=== PATIENT | female | born 1995 | race Caucasian/White ===

== ENCOUNTER 2022-10-17 12:48 | Outpatient (CLI) | payer BC, SELFPAY | END 2022-10-17 12:49 | disposition home or self-care (01) | LOC: LKVREF 10-22 09:10 | PROVIDERS: PCP Physician Assistant Medical; Visit Provider Family Medicine | DX: N39.0 Urinary tract infection, site not specified (principal) | CPT/HCPCS: 87086 ==

== ENCOUNTER 2022-12-29 16:02 | Outpatient (CLI) | payer BC, SELFPAY ==
--- OUTSIDE RECORDS SUMMARY | 2022-12-29 16:06 | XMS_ITS | Continuity of Care Document ---
:1995 Author Organization [facility] Address [address] [place] [address] Phone Care Team Providers Name Role Phone Will Julio VICKERS Unavailable Unavailable Allergies, Adverse Reactions, Alerts Substance Reaction Status Criticality No Known Allergies Active No Informatio n Medications Medication Instructions Dosage Effective Dates Status Comment s (start - stop) rizatriptan [address] 1 TABLET ON TOP - Activ e disintegrating tablet OF TONGUE, ALLOW TO DISSOLVE THEN SWALLOW ONCE, MAY REPEAT EVERY 2 HOURS. MAX 30MG/24 HOURS FOR HEADACHE. CYCLOBENZAPRINE 10MG TAKE 1 TABLET BY - Active TABLETS MOUTH EVERY 8 HOURS NEEDED FOR HEADACHES Zanaflex 2 mg capsule take 1-2 capsule by - Ac tive oral route every 6 - 8 hours as needed not to exceed 3 doses in 24 hours for Headache gabapentin 300 mg take 2 capsule by 600 MG - Active capsule oral route 3 times every day for Headache Effexor XR 150 mg take 2 capsule by 300 MG - Active capsule,extended release oral route every day gabapentin 100 mg take 2 capsule by 200 MG - Active capsule oral route every day atomoxetine 60 mg take 1 capsule by 60 MG - Active capsule oral route every day in the morning propranolol 20 mg tablet take 1 tablet by oral 20 MG - Active route 3 times every day Procedures Procedure Date Ketorolac tromethamine inj OFFICE/OUTPATIENT VISIT, EST Botulinum toxin a per unit Botulinum toxin a per unit Destroy Nerve Face For Chronic Migraine Botulinum toxin a per unit Intramuscular Injection Ketorolac tromethamine inj Botulinum toxin a per unit Destroy Nerve Face For Chronic Migraine OFFICE/OUTPATIENT VISIT, EST Injection, bupivicaine hydro Kenalog Triamcinolone acetonide inj N BLOCK, OTHER PERIPHERAL BILATERAL Intramuscular Injection Ketorolac tromethamine inj OFFICE/OUTPATIENT VISIT, EST OFFICE/OUTPATIENT VISIT, EST Botulinum toxin a per unit OFFICE/OUTPATIENT VISIT, EST OFFICE/OUTPATIENT VISIT, NEW Advance Directives Directive Yes / No Effective Date File Name No Information Encounters Encounter Practice Location Reason(s) Diagnoses Date Provider Provide rs Description For Visit Copied on Encounter [facility] No Information [facility] Julio. Pain [place] [address] [facility] [address], [place], [address] [place], [place], [place], [place], [id number], , [place]. [place] tel: tel: [phone] OFFICE/OUTPAT [facility] headache Chronic migraine Felicia chong Referring IENT VISIT, [facility] (chief w/o aura, not cy. Pr ovider: EST Pain Eastern complaint) intractable, w/o 0 [id number] A [facility], critical access hospital migrNausea [facility] [place] on, [address] [facility], [address], [place], [place], [place] [id number], , [place], [facility] [id number], tel: , . [place], [id number] tel: [place], [address]. [id number] tel:[phone] [facility] Chronic migraine Mar- [facility] w/o aura, Magda. Provider: Pain Madeline intractable, w/o 0 [phone] So[facility] is Clinic, stat migr [facility]ly [facility] Kra[address], [address] [facility], [address], [place], [place], [place] [id number], [place], [place], [place] [id number], tel: , [place]. [place] [id number] tel: [place], [phone]. [id number] tel:[phone] [facility] No Information [facility] Julio. Pain [place] [address] [facility], [place], [address] [place], [place], [place], [place], [place], [id number], , [place]. [place] tel: tel: [phone] [facility] Chronic migraine Feb- [facility] w/o aura, not Magda. Provid er: Pain [place] intractable, w/o 0 [phone] Osiel is [facility], stat migrChronic [facility] [address] Rick son, [address] migraine w/o [address] [facility], aura, [address], [place], [place], intractable, w/o [place] [id number], stat migr [place], [place], [place] [id number], tel: , [place]. [place], [id number] tel: [place], [address]. [id number] tel:[phone] [facility] No Information [facility] Magda. Pain [place] 0 [address] [facility], [facility] [address] [place], [address], [place], [place], [place] [id number], [place], [place], [place] [id number] tel: , [place]. [id number] tel: [phone] [facility] Chronic migraine Nov- [facility] w/o aura, Magda. Provider: Pain Eastern intractable, w/o 9 [phone] Osiel is [facility], stat migr [facility] [address] Jimi, [address] [facility] [place], [address], [place], [place], [place] [id number], [place], [place], [place] [id number], tel: , [place]. [place] [id number] tel: [place], [phone]. [phone] tel:[phone] [facility] Chronic migraine Jul- [facility] w/o aura, Magda. Provider: Pain Madeline intractable, w/o 9 [address] Osiel is Clinic, [facility] [address] Jimi, [address] [facility] [place], [address], [facility], [place], [place] [id number], [place], [place], [place] [id number], tel: , [place]. [place] [id number] tel: [place], [address]. [phone] tel:[phone] OFFICE/OUTPAT [facility] headache Chronic migraine Jul- [facility] Referring IENT VISIT, [facility] (chief w/o aura, not Magda. Pr ovider: EST Pain Eastern complaint) intractable, w/o A javan Clinic, [facility] [address] Rick son, [address] pain [address] [facility], syndromeOther 100, [place], [place], buttermaker helper [place] [phone], (current) drug e, [place], [place] therapy [id number], tel: , [place]. [place] [id number] tel: [place], [address]. [id number] tel:[phone] [facility] Chronic migraine May- [facility] w/o aura, not Garett. Provid er: Pain Madeline intractable, w/o 9 [address] Al exis Clinic, [facility], Kra[place], [address] [place] [facility], is, [place], [place], [place], [id number], , [place]. [place] tel: Ave, tel: [phone] [place], [phone] [place], [address]. tel:[phone] OFFICE/OUTPAT [facility] headache Chronic pain May- Referring IENT VISIT, [facility] (chief syndromeChronic Magda. Provider: EST Pain Eastern complaint) migraine w/o 9 [facility], aura, not [facility] [address] Jimi, [address] intractable, w/o 11 [address] M a [facility] [place], stat migrOther 100, [place], [place], buttermaker helper [place] [id number], (current) drug e, [place], [place] therapy [id number], tel: , [place]. [place] [id number] tel: [place], [address]. [id number] tel:[phone] OFFICE/OUTPAT [facility] headache Chronic migraine May- [facility] Referring IENT VISIT, [facility] (chief w/o aura, not Magda. Pr ovider: EST Pain Eastern complaint) intractable, [facility]/o 9 [facility] [place] son, [address] migraine w/o 11 [address] [facility], aura, 100, [place], [place], intractable, w/o [place] [id number], stat migrChronic e, [place], [place] pain syndrome [id number], tel: , [place]. [place] [id number] tel: [place], [address]. [id number] tel:[phone] [facility] Chronic migraine Apr- [facility] w/o aura, Magda. Provider: Pain Eastern intractable, w/o 9 Osiel is Clinic, [facility] [address] Jimi, [address] [facility] [place], [address], [place], [place], [place] [id number], [place], [place], [place] [id number], tel: , [place]. [place] [id number] tel: [place], [address]. [id number] tel:[phone] OFFICE/OUTPAT [facility] headache Chronic pain Apr-[facility] Referring IENT VISIT, [facility] (chief syndromeChronic Magda. Provider: EST Pain Eastern complaint) migraine w/o 9 [id number] [facility], aura, [address], [address] intractable, w/o [address] [facility] [place], stat migr 100, [place], [place], [place] [id number], [place], [place], [facility] [id number], tel:+ , [place]. [place] [id number] tel: [place], [address]. [id number] tel:[phone] OFFICE/OUTPAT [facility] Headache Chronic migraine OBri en Referring IENT VISIT, [facility] (chief w/o aura, not 6- Garett. Pr ovider: NEW Pain Eastern complaint) intractable, w/o 9 [address] [facility], stat migrChronic Danitza Muronohemi n, [address] pain syndrome [place] [facility] [place], , [place], [place], [place], [phone], , [place]. [facility] tel: Ave, tel: [phone] [place], [id number] [place], [address]. tel:[phone] Family History Family Member Type Diagnosis Age At Onset Problem (finding) Family history of chronic migr aines Payers Payer name Insurance type Covered alliance party ID Authorization(s ) [employer] [id number] Commercial Social History Type Description Quantity Date Captured Comments Sex Female Smoking Status No Information Chief Complaint And Reason For Visit No Information Reason For Referral Reason For Referral No Information Plan Of Treatment Date Type Action Status Referral Ordered: ordered Andrez Krause [facility] Medicine (related to Chronic migraine w/o aura, not intractable, w/o stat migr) Referral Referred To: ordered Andrez [address]use [address] [place], [phone] Ordered: Referrals: Family Medicine. Andrez Cortez History Of Present Illness Encounter Date Complaint History Of Present I llness headache Severity: incapacita ting. It occurs constantly. The problem is worse . Location is vertex. There is no radiation. The de scribes it as sharp and throbbing. Symptom i s aggravated by noise and light. Denies reliev ing factors. headache (comments) Patient with 4/day s evere headaches, associated with light sensitivi ty and nausea. Pt. requesting Toradol injection headache Severity: 5. It occu rs intermittently, has chronic duration, and is imp roving. Location is entire head. The patient de scribes it as aching. Denies aggravating factors. Relieving factors include ice, rest and TENS. Pertinent negatives include fever, nausea and vo miting. headache (comments) Starr is here for foll ow up and medications refill. Her headache pain is has improved this month. She got a headache pierc ing in innermost ear cartilage. Since the piercing her headaches have reduced significantl y, from daily headaches to one migraine in the last 2 weeks. She reports some relief with the supr aorbital nerve block injections, but not sure if she would like to repeat. Reports michelle le relief with the Toradol injections. Botox in jections decreased the intensity of her hea daches - but was short-lived (about a month). Cody aflex did not help much, will stop it. Reports cur rent medication regimen provides 40% pain re lief and allows for increased functionality. Denie s side effects from current medication regimen. Patient continues to work No other concerns today . headache Severity: 8. It occu rs constantly, has chronic duration, and is wor se. Location is frontal left, frontal right, ocula r left, ocular right and parietal right. Ther e is radiation to posterior. The describes it as sharp and achy. Symptom is aggravated by anxiet y and stress. Relieving factors include ice, OTC meds, prescription drugs, relaxation and sleep . Pertinent negatives include fever, nausea and vo miting. headache (comments) Patient is here for a f/u on headaches, located in forehead, she north [place] a headache for the last 10 days. Pt not on o pioids. Starr's pain has been worse since last vis it. Denies nausea and vomiting. Last Alissa y she went to the urgent and got a Toradol inject ion but states she did not get any pain relief from it. She would still like to try another injectio n today and increase her dose of Flexeril. We also discussed possible nerve block. No other conc erns to address. headache (comments) Starr is here for foll ow up after initial consult. She does not feel im provement with the Gabapentin. Denies side effects from medications and previous Botox injection exce pt Effexor reports disorientation side effect. Reports decrease in pain level from 6 to 2 from intensity of daily headaches with Botox injection.No other concerns today. headache Severity: 4. It occu rs intermittently, has chronic duration, and is unc hanged. Location is frontal left and frontal rig ht. The patient describes it as aching. Denies ag gravating factors. Relieving factors include ice. Pertinent negatives include fever, nausea and vo miting. headache Severity: 4. It occu rs intermittently, has chronic duration, and is unc hanged. Location is frontal left, frontal right, parietal left and parietal right. The describes it as sharp and ache. Relieving factors in clude ice, supine, meds and rest. Pertinent nega tives include fever, nausea and vomiting. headache (comments) Starr is here for foll ow up and medications refill. Reports current medi cation regimen provides 40% pain relief. Denies side effects from current medication regimen. Pain is stable overall. Prudencioncdelvis has been working bet ter for headaches than Imitrex-- less SE. S [employer] insurance will cover 800 units of botox-- has botox injxn scheduled for next week (04/25/19). States gabapentin has been helpful-- making her feel happier. No other concerns today. Headache Severity: 6. It occu rs intermittently, has chronic duration, and is wor se. Location is entire head. The describes it as ache. Symptom is aggravated by bright lights, sound s and smells. Relieving factors include ice, massage, rest and meds. Pertinent negatives include fever. Headache (comments) Starr is here for init ial consult for chronic migraines, referred by Dr. Andrez Krause. She has had intermittent migraine episodes since childhood. Migraines start suddenly with no warning-- pain in to p of head with nausea 20% of the time. Has seen h er neurology at [facility], did not stay with t [facility] due to insurance reasons. Headaches >15 days a monthAnn is interested in any treatment option and would like [facility] to assume management of pain c are.Previous treatments include:Anticonvulsa nts: Gabapentin 200mg QHS. Tried Cymbalta 10 mo nths ago-- not helpful. Topamax 3 years ago- - not helpful.Muscle relaxants: Cyclobenz aprine helpful at high Anti-inflammatories: Ibuprofen-- rebound headaches, prednison e-- not helpful.Opioids: Fioricet-- not helpf ul.Other: Aimovig-- tried for 2 months about 7 mon ths ago-- not helpful. Then tried Emgality at 70 mg for 3-5 months-- not helpful. CBD oil-- n ot helpful. Imitrex-- Neck stiffness (both oral and injectable). Maxalt-- somewhat helpful but stopped d/t lack of insurance. PT: None. Surgeries: None.Procedures: None.Diagnostics: No ne.Other: acupuncture -variable response, massage - worsened headache, chiropractor - no he lp. Functional Status Date Functional Assessment No Information Instructions Date Instruction Additional Informati on No Information Assessments Type Assessment Date No Information Patient Care Teams Name Effective Dates (start - stop) Status M embshannan No Information
== END 2022-12-29 16:03 | disposition home or self-care (01) ==
PROVIDERS: PCP Physician Assistant Medical; Visit Provider Physician Assistant Medical
DX: E66.01 Morbid (severe) obesity due to excess calories (principal); Z68.41 Body mass index [BMI] 40.0-44.9, adult
CPT/HCPCS: 82306; 84443

== ENCOUNTER 2023-03-16 13:00 | Outpatient (RCR) | payer BC, SELFPAY | END 2023-04-20 15:59 | disposition home or self-care (01) | PROVIDERS: PCP Physician Assistant Medical; Visit Provider Physician Assistant Medical | DX: M79.671 Pain in right foot (principal); M79.672 Pain in left foot; G89.29 Other chronic pain; R51.9 Headache, unspecified; M54.50 Low back pain, unspecified; M25.561 Pain in right knee; M25.562 Pain in left knee; M72.2 Plantar fascial fibromatosis; Z51.89 Encounter for other specified aftercare | CPT/HCPCS: 97110; 97140; 97161 ==

== ENCOUNTER 2023-06-17 13:11 | Emergency (ER) | payer BC, SELFPAY ==
[2023-06-17 13:19] VITALS: BP 126/79; PULSE 123; RESP 16; TEMP 36.4; O2SAT 99; BMI 37.9
--- OUTSIDE RECORDS SUMMARY | 2023-06-17 13:50 | XMS_ITS | Patient Health Record ---
Author Name Unknown Organization [facility] Address [address] [place] [address] [address] [place] [address] Care Team Providers Care Local Area Network Administrator Name Role Phone Heaven Brunson Primary Care Provider UnavailGraeme Ulrich Unavailable [phone] Luis A Velazco Unavailable Unavailable Dale Lau Unavailable [phone] ALLERGIES Allergen (clinical drug ingredient) Drug/Non Drug Allergy documented on EMR Reaction Allergy Type Onset Date Status contrast (uncoded) redness and swelling at IV Allergy Active REASON FOR REFERRAL No Information MEDICATIONS Medication SIG (Take, Route, Frequency, Duration) Notes Start Date End Date Status Vitamin D 50 MCG (1999) 1 tablet Orally Once a day U nknown Nurtec 75 MG 1 tablet on the ue and allow to dissolve Orally Unknown hydrOXYzine HCl 50 MG 1 tablet as needed Orally every 6 hrs Unknown Prazosin HCl 1 MG 1 capsule at bedtime Orally Once a day Unknown Ubrelvy 100 MG 1 tablet may take se cond dose at least 2 hours after first dose as needed Orally Once a day Unknown Maxalt 10 MG 1 tablet Orally Once a day Unknown Aimovig 140 MG/ML as directed Subcutaneous Unknown Viorele 0.15-0.02/0.01 MG (01/03) as directed Orally Unknown Viibryd 20 MG 1 tablet with food O rally Once a day Unknown SOCIAL HISTORY Sex Assigned At : Social History Observation Description Sex Assigned At Unknown PROBLEMS Problem Type ICD Code Onset Dates Problem Status W/U Status Risk SNOMED Code Notes Problem Migraine without aura, not intractable, with status migrainosus (G43.001) Active confirmed Migraine without aura (45185469) Problem Other chronic pain (G89.29) Active confirmed Chronic pain (79033207) Problem Spondylosis without myelopathy or radiculopathy, cervical region (M47.812) Active confirmed Cervical spondylosis without myelopathy (748629730) Problem Headache, unspecified (R51.9) Active confirmed Headache (93245627) Encounters Encounter Location Date Provider Diagnosis CRC [address] [facility] [address] [place] [address] 06/27/2022 Graeme Mancia BV [facility] [address] [place] [address] 01/22/2023 Dale Lau PLAN OF TREATMENT No Information Insurance Providers Payer Name Payer Address Payer Phone Subscriber Number Group Number Insured Name Patient Relationship to Insured Coverage Start Date Coverage End Date [facility] [address] [address] [place] [address] [id number] Starr Remy Self - patient is the insured MEDICAL (GENERAL) HISTORY Medical History History ICD Code Anxiety Depression Headaches Migraines Surgical History Surgery Date(Month/Year) Appendectomy 11/08/2021
--- OUTSIDE RECORDS SUMMARY | 2023-06-17 13:50 | XMS_ITS | Continuity of Care Document ---
Author Name Unknown Organization [facility] yohannes Address [address] [place] [address] Phone Care Team Providers Care Osteopathy Doctor Name Role Phone Will Julio VICKERS Unavailable Unavailabl e Allergies, Adverse Reactions, Alerts Substance Reaction Status Criticality No Known Allergies Active No Inform ation Medications Medication Instructions Dosage Effective Dates (start - stop) Status Comments rizatriptan [address] 1 TABLET ON TOP OF TONGUE, ALLOW TO DISSOLVE THEN SWALLOW ONCE, MAY REPEAT EVERY 2 HOURS. MAX 30MG/24 HOURS FOR HEADACHE. - Active CYCLOBENZAPRINE 10MG TABLETS TAKE 1 TABLET BY MOUTH EVERY 8 HOURS NEEDED FOR HEADACHES - Active Zanaflex 2 mg capsule take 1-2 capsule b y oral route every 6 - 8 hours as needed not to exceed 3 doses in 24 hours for Headache - Active gabapentin 300 mg capsule take 2 capsule by oral route 3 times every day for Headache 600 MG - Active Effexor XR 150 mg capsule,extended release take 2 capsule by oral route every day 300 MG - Active gabapentin 100 mg capsule take 2 capsule by oral route every day 200 MG - Active atomoxetine 60 mg capsule take 1 capsule by oral route every day in the morning 60 MG - Active propranolol 20 mg tablet take 1 tablet b y oral route 3 times every day 20 MG - Active Procedures Procedure Date Ketorolac tromethamine inj OFFICE/OUTPATIENT [...] Date File Name No Information Encounters Encounter Description Practice Location Reason(s) For Visit Diagnoses Date Provider Providers Copied on Encounter [facility], [address] [place] [address], [id number], [place] tel:[phone] [facility] No Information 2 Elver Kim. [address] [place], [place], [id number] , [place]. [phone] OFFICE/OUTPAT IENT VISIT, [facility], [address] [place] [address], [id number], [place] tel:[phone] [facility] headache (chief complaint) Chronic migraine w/o aura, not intractable, w/o stat migrNausea 0 Stephanie Man. [address] [facility] [address], [facility] [place], [id number] , [place]. tel:[phone] Referring Provider: Eliseo Carlton [facility] [address] [place], [address]. tel:[phone] [facility], [address] [place], [id number], [place] tel:[phone] [facility] Chronic migraine w/o aura, intractable, w/o stat migr 0 Rolandaongesa Magda. [address] [facility] [address], [place], [id number] , [place]. tel: [phone] Referring Provider: Eliseo Carlton [facility] [address] [place], [address]. tel:[phone] [facility], [address] [place] [place], [id number], [place] tel:[phone] [facility] [place] No Information 0 Elver Kim. [address] [place], [id number] , [place]. tel:[phone] [facility], [address] [place], [id number], [place] tel:[phone] [facility] [place] Chronic migraine w/o aura, not intractable, w/o stat migrChronic migraine w/o aura, intractable, w/o stat migr Feb- 0 Nyongesa Magda. [address], [place], [id number] , [place]. tel: [phone] Referring Provider: Eliseo Carlton [facility] [address] [place], [address]. tel:[phone] [facility], [address] [place], [id number], [place] tel:[phone] [facility] [place] No Information 0 Nyongesa Magda. [address], [place], [id number] , [place]. tel:[phone] [facility], [address] [place], [id number], [place] tel:[phone] [facility] [place] Chronic migraine w/o aura, intractable, w/o stat migr Nov-0 -201 9 Nyongesa Magda. [address] [facility] [address], [place], [id number] , [place]. tel:[phone] Referring Provider: Eliseo Carlton [facility] [address] [place], [address]. tel:[phone] [facility], [address] [place], [id number], [place] tel:[phone] [facility] [place] Chronic migraine w/o aura, intractable, w/o stat migr 9 [facility]. [address], [place], [id number] , [place]. tel: [phone] Referring Provider: Eliseo Carlton [facility] [address] [place], [address]. tel:[phone] OFFICE/OUTPAT IENT VISIT, [facility], [address] [place], [id number], [place] tel:[phone] [facility] headache (chief complaint) Chronic migraine w/o aura, not intractable, w/o stat migrChronic pain syndromeOther long distance operator (current) drug therapy [facility]. [address], [place], [id number] , [place]. tel:[phone] Referring Provider: Eliseo Carlton [facility] [address] [place], [address]. tel:[phone] [facility], [address] [place], [id number], [place] tel:[phone] [facility] [place] Chronic migraine w/o aura, not intractable, w/o stat migr 9 Strickland [facility]. [facility], [address], [place], [address], [place]. [phone] Referring Provider: Eliseo Carlton [facility] [address] [place], [address]. tel:[phone] OFFICE/OUTPAT IENT VISIT, [facility], [address] [place], [id number], [place] tel:[phone] [facility] headache (chief complaint) Chronic pain syndromeChronic migraine w/o aura, not intractable, w/o stat migrOther long distance operator (current) drug therapy [facility]. [address] [facility] [address], [place], [id number] , [place]. [phone] Referring Provider: Eliseo Carlton [facility] [address] [place], [address]. tel:[phone] OFFICE/OUTPAT IENT VISIT, [facility], [address] [place], [place], [id number], [place] tel:[phone] [facility] headache (chief complaint) Chronic migraine w/o aura, not intractable, w/o stat migrChronic migraine w/o aura, intractable, w/o stat migrChronic pain syndrome [facility]. [address], [place], [id number] , [place]. [phone] Referring Provider: Eliseo Carlton [facility] [address] [place], [address]. tel:[phone] [facility], [address] [place], [place], [id number], [place] tel:[phone] [facility] Chronic migraine w/o aura, intractable, w/o stat migr [facility]. [address], [place], [id number] , [place]. [phone] Referring Provider: Eliseo Carlton [facility] [address] [place], [address]. tel:[phone] OFFICE/OUTPAT IENT VISIT, [facility], [address] [place], [place], [id number], [place] tel:[phone] [facility] headache (chief complaint) Chronic pain syndromeChronic migraine w/o aura, not intractable, w/o stat migr 201 9 Stephanie Man. [address], [place], [id number] , [place]. tel:[phone] Referring Provider: Eliseo Carlton [facility] [address] [place], [address]. tel:[phone] OFFICE/OUTPAT IENT VISIT, [facility], [address] [place], [place], [id number], [place] tel:[phone] [facility] [place] Headache (chief complaint) Chronic migraine w/o aura, not intractable, w/o stat migrChronic pain syndrome 9 Marco A Bajwa. [employer], [address], [place], [address], [place]. tel:[phone] Referring Provider: Eliseo Carlton [facility] [address] [facility] [place], [address]. tel:[phone] Family History Family Member Type Diagnosis Age At Onset Problem (finding) Family history of chron ic migraines Payers Payer name Insurance type Covered democrat ID Authoriza tiemile(s) [employer] [id number] Social History Type Description Quantity Date Captured Comments Sex Female Smoking Status No Information Chief Complaint And Reason For Visit No Information Reason For Referral Reason For Referral No Information Plan Of Treatment Date Type Action Status Referral Ordered: Andrez Krause -Family Medicine (related to Chronic migraine w/o aura, not intractable, w/o stat migr) ordered Referral Referred To: Andrez Krause [facility] [place], [id number] Ordered: Referrals: Family Medicine. Andrez Krause ordered History Of Present Illness Encounter Date Complaint History Of Prese nt Illness headache Severity: incapa citating. It occurs constantly. The problem is worse. Location is vertex. There is no radiation. The describes it as sharp and throbbing. Symptom is aggravated by noise and light. Denies relieving factors. headache (comments) Patient with 4/day severe headaches, associated with light sensitivity and nausea. Pt. requesting Toradol injection headache (comments) Starr is here for follow up and medications refill. Her headache pain is has improved this month. She got a headache piercing in innermost ear cartilage. Since the piercing her headaches have reduced significantly, from daily headaches to one migraine in the last 2 weeks. She reports some relief with the supraorbital nerve block injections, but not sure if she would like to repeat. Reports little relief with the Toradol injections. Botox injections decreased the intensity of her headaches - but was short-lived (about a month). Zanaflex did not help much, will stop it. Reports current medication regimen provides 40% pain relief and allows for increased functionality. Denies side effects from current medication regimen. Patient continues to work No other concerns today. headache Severity: 5. It occurs intermittently, has chronic duration, and is improving. Location is entire head. The patient describes it as aching. Denies aggravating factors. Relieving factors include ice, rest and TENS. Pertinent negatives include fever, nausea and vomiting. headache (comments) Patient is h ere for a f/u on headaches, located in forehead, she [place] a headache for the last 10 days. Pt not on opioids. Starr's pain has been worse since last visit. Denies nausea and vomiting. Last Thursday she went to the urgent and got a Toradol injection but states she did not get any pain relief from it. She would still like to try another injection today and increase her dose of Flexeril. We also discussed possible nerve block. No other concerns to address. headache Severity: 8. It occurs constantly, has chronic duration, and is worse. Location is frontal left, frontal right, ocular left, ocular right and parietal right. There is radiation to posterior. The describes it as sharp and achy. Symptom is aggravated by anxiety and stress. Relieving factors include ice, OTC meds, prescription drugs, relaxation and sleep. Pertinent negatives include fever, nausea and vomiting. headache Severity: 4. It occurs intermittently, has chronic duration, and is unchanged. Location is frontal left and frontal right. The patient describes it as aching. Denies aggravating factors. Relieving factors include ice. Pertinent negatives include fever, nausea and vomiting. headache (comments) Starr is here for follow up after initial consult. She does not feel improvement with the Gabapentin. Denies side effects from medications and previous Botox injection except Effexor reports disorientation side effect. Reports decrease in pain level from 6 to 2 from intensity of daily headaches with Botox injection.No other concerns today. headache (comments) Starr is here for follow up and medications refill. Reports current medication regimen provides 40% pain relief. Denies side effects from current medication regimen. Pain is stable overall. Maxalt has been working better for headaches than Imitrex-- less SE. States insurance will cover 800 units of botox-- has botox injxn scheduled for next week (04/25/19). States gabapentin has been helpful-- making her feel happier. No other concerns today. headache Severity: 4. It occurs intermittently, has chronic duration, and is unchanged. Location is frontal left, frontal right, parietal left and parietal right. The describes it as sharp and ache. Relieving factors include ice, supine, meds and rest. Pertinent negatives include fever, nausea and vomiting. Headache Severity: 6. It occurs intermittently, has chronic duration, and is worse. Location is entire head. The describes it as ache. Symptom is aggravated by bright lights, sounds and smells. Relieving factors include ice, massage, rest and meds. Pertinent negatives include fever. Headache (comments) Starr is here for initial consult for chronic migraines, referred by Dr. Andrez Krause. She has had intermittent migraine episodes since childhood. Migraines start suddenly with no warning-- pain in top of head with nausea 20% of the time. Has seen her neurology at [facility], did not stay with [facility] due to insurance reasons. Headaches >15 days a monthAnn is interested in any treatment option and would like [facility] to assume management of pain care.Previous treatments include:Anticonvulsants: Gabapentin 200mg QHS. Tried Cymbalta 10 months ago-- not helpful. Topamax 3 years ago-- not helpful.Muscle relaxants: Cyclobenzaprine helpful at high Anti-inflammatories: Ibuprofen-- rebound headaches, prednisone-- not helpful.Opioids: Fioricet-- not helpful.Other: Aimovig-- tried for 2 months about 7 months ago-- not helpful. Then tried Emgality at 70mg for 3-5 months-- not helpful. CBD oil-- not helpful. Imitrex-- Neck stiffness (both oral and injectable). Maxalt-- somewhat helpful but stopped d/t lack of insurance. PT: None.Surgeries: None.Procedures: None.Diagnostics: None.Other: acupuncture -variable response, massage - worsened headache, chiropractor - no help. Functional Status Date Functional Assessmen t No Information Instructions Date Instruction Additional Infor mation No Information Assessments Type Assessment Date No Information Patient Care Teams Name Effective Dates (start - stop) Status Members No Information
[2023-06-17] MEDS: LACTATED RINGERS 1000 ML 1,000 ML IV (13:59)
--- NOTE | 2023-06-17 14:05 | ED.GENADULT ---
HPI - General Adult General Time Seen by Provider: 14:05 Date Seen: 06/17/23 Chief complaint: Headache/Migraine Stated complaint: Migraine Time Seen by Provider: 06/17/23 13:17 Source: patient Mode of arrival: ambulatory Limitations: no limitations History of Present Illness HPI narrative: Patient is a 28-year-old female history of migraines, anxiety presenting to emergency department for a migraine. She says has been chronic for the past week. She was urgent care yesterday and was given Toradol without improvement of her symptoms. She states she has been having migraines like this for a while now is the 3rd visit in the past here to this emergency department. She states usually they give her a migraine cocktail and makes her migraine tolerable and she is discharged home. States this is just like a previous migraines. Denies lightheadedness, dizziness, chest pain, shortness of breath, numbness, weakness. No other concerns at this time. Related Data Home Medications Medication Instructions Recorded Confirmed rimegepant 75 mg disintegrating 75 mg PO .As Needed PRN 04/16/22 06/16/23 tablet vilazodone 40 mg tablet 40 mg PO DAILY 03/18/23 06/16/23 bupropion HCl 300 mg 24 hr tablet, 300 mg PO DAILY 06/16/23 06/16/23 extended release clonidine HCl 0.1 mg tablet 0.1 mg PO BID 06/16/23 06/16/23 hydroxyzine pamoate 50 mg capsule 50 mg PO 3XD PRN 06/16/23 06/16/23 lisdexamfetamine 30 mg capsule 30 mg PO DAILY 06/16/23 06/16/23 (Vyvanse) metformin 500 mg tablet,extended 500 mg PO BID 06/16/23 06/16/23 release 24 hr naltrexone 50 mg tablet 50 mg PO DAILY 06/16/23 06/16/23 ondansetron 4 mg disintegrating mg PO 06/16/23 06/16/23 tablet orphenadrine citrate 100 mg 100 mg PO BID PRN 06/16/23 06/16/23 tablet,extended release Allergies Allergy/AdvReac Type Severity Reaction Status Date / Time iodine Allergy Unknown Itching Verified 05/22/23 13:23 Review of Systems Status of ROS: Reports: 10 or more systems reviewed and unremarkable except as noted in History and below [facility] Medical History Right foot pain ?M79.671 - Pain in right foot (ICD-10) Sterilization (03/25/22) ?Z30.2 - Encounter for sterilization (ICD-10) Severe major depressive disorder ?F32.2 - Major depressive disorder, single episode, severe without psychotic features (ICD-10) Severe anxiety ?F41.9 - Anxiety disorder, unspecified (ICD-10) Posttraumatic stress disorder ?F43.10 - Post-traumatic stress disorder, unspecified (ICD-10) Polycystic ovary syndrome ?E28.2 - Polycystic ovarian syndrome (ICD-10) Morbid obesity with body mass index (BMI) of 40.0 to 44.9 in adult ?E66.01 - Morbid (severe) obesity due to excess calories (ICD-10) ?Z68.41 - Body mass index [BMI] 40.0-44.9, adult (ICD-10) Migraine headache ?G43.909 - Migraine, unspecified, not intractable, without status migrainosus (ICD-10) Menorrhagia with irregular cycle ?N92.1 - Excessive and frequent menstruation with irregular cycle (ICD-10) Insomnia ?G47.00 - Insomnia, unspecified (ICD-10) Encounter for insertion of subdermal contraceptive (03/25/22) ?Z30.017 - Encounter for initial prescription of implantable subdermal contraceptive (ICD-10) Bipolar disorder with depression ?F31.9 - Bipolar disorder, unspecified (ICD-10) Surgical History Status post surgical removal of both fallopian tubes (03/25/22) ?Z90.79 - Acquired absence of other genital organ(s) (ICD-10) Status post laparoscopic appendectomy ?Z90.49 - Acquired absence of other specified parts of digestive tract (ICD-10) Family History Father No problems noted. Other Bladder cancer Diabetes Liver cancer PCOS (polycystic ovarian syndrome) Social History Smoking Status: Never smoker Do you use any of these nicotine containing products: None Second hand tobacco smoke exposure: No How often do you have a drink containing alcohol: never AUDIT-C Alcohol total score: 0 Non-prescribed substance use: marijuana (any form) Non-prescribed substance use details: THC Gummies every night, PT estimates 300 mg Exam Narrative: Exam Narrative: Const: Well-nourished, Well-developed, in mild distress Eyes: PERRL, no conjunctival injection, and symmetrical lids ENMT: Atraumatic external nose and ears. Moist mucous membranes. Neck: Symmetric, trachea midline, No thyromegaly. CVS: RRR, No murmurs or gallops. Peripheral pulses 2+ and equal in all extremities RESP: Unlabored respiratory effort. Clear to auscultation bilaterally. GI: Nontender/Nondistended, No rebound or guarding. MSK:Extremities w/o deformity, Normal Active ROM Skin: Warm, Dry. No rashes or lesions. Neuro: Normal Muscle tone, No focal neurological deficits. Psych: Awake, Alert, & Oriented x3. Appropriate mood and affect. Const: Vital Signs, click to edit/add: Vital Signs - 24 hr 06/17/23 13:19 Temperature 97.6 F Pulse Rate [Right Pulse Oximeter] 123 H Respiratory Rate 16 Blood Pressure [Ri ght Upper Arm] 126/79 Pulse Oximetry 99 Oxygen Delivery Me thod Room Air Course Vital Signs Vital signs: Initial Vital Signs Temperature 97.6 F 06/17/23 13:19 Temperature Source Temporal Artery Scan 06/17/23 13:19 Pulse Rate 123 H 06/17/23 13:19 Respiratory Rate 16 06/17/23 13:19 Blood Pressure 126/79 06/17/23 13:19 Blood Pressure Mean 94 06/17/23 13:19 Blood Pressure Position Sitting 06/17/23 13:19 Pulse Oximetry 99 06/17/23 13:19 Oxygen Delivery Method Room Air 06/17/23 13:19 Vital Signs Temperature 97.6 F 06/17/23 13:19 Pulse Rate 123 H 06/17/23 13:19 Respiratory Rate 16 06/17/23 13:19 Blood Pressure 126/79 06/17/23 13:19 Pulse Oximetry 99 06/17/23 13:19 Oxygen Delivery Method Room Air 06/17/23 13:19 Temperature 97.6 F 06/17/23 13:19 Pulse Rate 123 H 06/17/23 13:19 Respiratory Rate 16 06/17/23 13:19 Blood Pressure 126/79 06/17/23 13:19 Pulse Oximetry 99 06/17/23 13:19 Oxygen Delivery Method Room Air 06/17/23 13:19 Medical Decision Making MDM Narrative Medical decision making narrative: Patient is a 28-year-old female presents emergency department for he a migraine. She has had migraines like this in the past. This 1 has lasted for a week and has not gotten better. She was given Toradol yesterday for headache get urgent care thought improvement in her symptoms. She does see a neurologist. She states usually a migraine cocktail helped her. Benadryl, Toradol, Reglan, L lactated Ringer's were ordered. After this the patient is feeling much better. Since this is a chronic issue and I believe head imaging is necessary. She is otherwise remarkably discharged home. She is agreeable to this plan. Discharge Plan Discharge Clinical Impression: Migraine Patient Disposition: Home, Self-Care Condition: Stable Instructions: Migraine Headache (ED) Additional Instructions: Follow-up with the neurologist and primary care provider for your migraines. Return for new worsening symptoms. Prescriptions: No Action rimegepant 75 mg tablet,disintegrating 75 mg PO .As Needed PRN bupropion HCl 300 mg tablet extended release 24 hr 300 mg PO DAILY clonidine HCl 0.1 mg tablet 0.1 mg PO BID Vyvanse 30 mg capsule 30 mg PO DAILY naltrexone 50 mg tablet 50 mg PO DAILY ondansetron 4 mg tablet,disintegrating PO metformin 500 mg tablet extended release 24 hr 500 mg PO BID orphenadrine citrate 100 mg tablet extended release 100 mg PO BID PRN hydroxyzine pamoate 50 mg capsule 50 mg PO 3XD PRN vilazodone 40 mg tablet 40 mg PO DAILY Follow Up/Referrals: Heaven Brunson PA-C [Primary Care Provider] - Stand Alone Forms: [employer] Info Instructions
[2023-06-17] MEDS: diphenhydrAMINE 50 MG/ML inj 25 MG IVP (14:17)
[2023-06-17] MEDS: METOCLOPRAMIDE HCL 5 MG/ML INJ 10 MG IVP (14:17)
[2023-06-17] MEDS: KETOROLAC 15 MG/ML inj IVP (14:17)
[2023-06-17 15:55] VITALS: BP 130/83; PULSE 97
== END 2023-06-17 15:55 | disposition home or self-care (01) ==
PROVIDERS: Emergency Provider Student in an Organized Health Care Education/Training Program; PCP Physician Assistant Medical
DX: G43.909 Migraine, unspecified, not intractable, without status migrainosus (principal)
CPT/HCPCS: 96361; 96374; 96375; 99282; 99284; J1200; J1885; J2765; J7120

== ENCOUNTER 2023-07-20 12:07 | Outpatient (CLI) | payer BC, SELFPAY ==
--- OUTSIDE RECORDS SUMMARY | 2023-07-20 12:14 | XMS_ITS | Continuity of Care Document ---
Author Name Unknown Organization [facility] yohannes Address [address] [facility] [place] [address] Phone Care Team Providers Care Laundry Routeman Name Role Phone Will Julio VICKERS Unavailable [...] Diagnoses Date Provider Providers Copied on Encounter [facility], [address] [place] [address], [id number], [place] tel:[phone] [facility] No Information 2 Elver Kim. [address] [place], [place], [id number] , [place]. [phone] OFFICE/OUTPAT IENT VISIT, [facility], [address] [place] [address], [id number], [place] tel:[phone] [facility] headache (chief complaint) Chronic migraine w/o aura, not intractable, w/o stat migrNausea 0 Stephanie Man. [address] [facility] [address], [facility] [place], [id number] , [place]. tel:[phone] Referring Provider: Eliseo Carlton [facility] [address] [place], [address]. tel:[phone] [facility], [address] [facility] [place], [id number], [place] tel:[phone] [facility] Chronic migraine w/o aura, intractable, w/o stat migr 0 Rolandaongesa Magda. [address] [facility] [address], [place], [id number] , [place]. tel: [phone] Referring Provider: Eliseo Carlton [facility] [address] [place], [address]. tel:[phone] [facility], [address] [place], [id number], [place] tel:[phone] [facility] [place] No Information 0 Elver Kim. [address] [facility] [place], [id number] , [place]. tel:[phone] [facility], [address] [facility] [place], [id number], [place] tel:[phone] [facility] [place] Chronic migraine w/o aura, not intractable, w/o stat migrChronic migraine w/o aura, intractable, w/o stat migr Feb- 0 Nyongesa Magda. [address], [place], [id number] , [place]. tel: [phone] Referring Provider: Eliseo Carlton [facility] [address] [place], [address]. tel:[phone] [facility], [address] [facility] [place], [id number], [place] tel:[phone] [facility] [place] No Information 0 Nyongesa Magda. [address], [place], [id number] , [place]. tel:[phone] [facility], [address] [facility] [place], [id number], [place] tel:[phone] [facility] [place] Chronic migraine w/o aura, intractable, w/o stat migr Nov-0 -201 9 Nyongesa Magda. [address] [facility] [address], [place], [id number] , [place]. tel:[phone] Referring Provider: Eliseo Carlton [facility] [address] [place], [address]. tel:[phone] [facility], [address] [facility] [place], [id number], [place] tel:[phone] [facility] [place] Chronic migraine w/o aura, intractable, w/o stat migr 9 [facility]. [address], [place], [id number] , [place]. [phone] Referring Provider: Eliseo Carlton [facility] [address] [place], [address]. tel:[phone] OFFICE/OUTPAT IENT VISIT, [facility], [address] [facility] [place]in[place], [id number], [place] tel:[phone] [facility] headache (chief complaint) Chronic migraine w/o aura, not intractable, w/o stat migrChronic pain syndromeOther fdc (current) drug therapy [facility]. [address], [place], [id number] , [place]. tel:[phone] Referring Provider: Eliseo Carlton [facility] [address] [place], [address]. tel:[phone] [facility], [address] [facility] [place]in[place], [id number], [place] tel:[phone] [facility] [place] Chronic migraine w/o aura, not intractable, w/o stat migr 9 Strickland Garett. [facility] [employer], [address], [place], [address], [place]. [phone] Referring Provider: Eliseo Carlton [facility] [address] [place], [address]. tel:[phone] OFFICE/OUTPAT IENT VISIT, [facility], [address] [facility] [place]in[place], [id number], [place] tel:[phone] [facility] headache (chief complaint) Chronic pain syndromeChronic migraine w/o aura, not intractable, w/o stat migrOther rat exterminator (current) drug therapy [facility]. [address] [facility] [address], [place], [id number] , [place]. [phone] Referring Provider: Eliseo Carlton [facility] [address] [place], [address]. tel:[phone] OFFICE/OUTPAT IENT VISIT, [facility], [address] [place], [place], [id number], [place] tel:[phone] [facility] headache (chief complaint) Chronic migraine w/o aura, not intractable, w/o stat migrChronic migraine w/o aura, intractable, w/o stat migrChronic pain syndrome [facility]. [address], [place], [id number] , [place]. [phone] Referring Provider: Eliseo Carlton [facility] [address] [place], [address]. tel:[phone] [facility], [address] [place], [place], [id number], [place] tel:[phone] [facility] Chronic migraine w/o aura, intractable, w/o stat migr [facility]. [address], [place], [id number] , [place]. [phone] Referring Provider: Eliseo Carlton [facility] [address] [place], [address]. tel:[phone] OFFICE/OUTPAT IENT VISIT, [facility], [address] [place], [place], [id number], [place] tel:[phone] [facility] headache (chief complaint) Chronic pain syndromeChronic migraine w/o aura, not intractable, w/o stat migr 201 9 Stephanie Man. [address] [facility] [address], [place], [id number] , [place]. tel:[phone] Referring Provider: Eliseo Carlton [facility] [address] [place], [address]. tel:[phone] OFFICE/OUTPAT IENT VISIT, [facility], [address] [place], [place], [id number], [place] tel:[phone] [facility] [place] Headache (chief complaint) Chronic migraine w/o aura, not intractable, w/o stat migrChronic pain syndrome 9 Marco A Bajwa. [employer], [address], [place], [address], [place]. tel:[phone] Referring Provider: Eliseo Carlton [facility] [address] [facility] [place], [address]. tel:[phone] Family History Family Member Type Diagnosis Age At Onset Problem (finding) Family history of chron ic migraines Payers Payer name Insurance type Covered constitution party ID Authoriza tiemile(s) [employer] [id number] Social History Type Description Quantity Date Captured Comments Sex Female Smoking Status No Information Chief Complaint And Reason For Visit No Information Reason For Referral Reason For Referral No Information Plan Of Treatment Date Type Action Status Referral Ordered: Andrez Krause -Family Medicine (related to Chronic migraine w/o aura, not intractable, w/o stat migr) ordered Referral Referred To: Andrez Krause [facility] [place], [phone] Ordered: Referrals: Family Medicine. Andrez Krause ordered [...] requesting Toradol injection headache Severity: 5. It occurs intermittently, has [...] work No other concerns today. headache Severity: 8. It occurs constantly, has [...] block. No other concerns to address. headache (comments) Starr is here for follow [...] other concerns today. Headache Severity: 6. It occurs intermittently, has [...] the time. Has seen her neurology at [facility], did not stay with [facility] due to insurance reasons. Headaches >15 days a monthAnn is interested in any treatment option and would like [facility] to assume management of pain care.Previous treatments [...]
== END 2023-07-20 12:08 | disposition home or self-care (01) ==
PROVIDERS: PCP Physician Assistant Medical; Visit Provider Physician Assistant
DX: R23.2 Flushing (principal)
CPT/HCPCS: 82947; 83001; 84443; 84481; 87086

== ENCOUNTER 2023-08-10 11:22 | Emergency (ER) | payer BC, SELFPAY ==
[2023-08-10 11:25] VITALS: BP 138/90; PULSE 103; RESP 16; TEMP 36.2; O2SAT 100; BMI 37.9
--- NOTE | 2023-08-10 11:33 | ED.HA ---
HPI - Headache General Time Seen by Provider: 11:33 Date Seen: 08/10/23 Chief Complaint: Headache/Migraine Stated Complaint: Migraine Time Seen by Provider: 08/10/23 11:24 Source: patient and RN notes reviewed Mode of arrival: ambulatory Limitations: no limitations History of Present Illness HPI Narrative: This 28-year-old female is ambulatory in the ED of her own accord with complaint of a migraine headache. She is tearful on presentation, has had a migraine since Thursday. She has not taken any ibuprofen today but was trying it prior to this. She feels a migraine in her whole head, has phonophobia, photophobia. No nausea or vomiting but diminished appetite. She has noticed no neurologic changes. She does have a history of migraines. She has a neurologist. They have been trying her on new or migraine medicines. She has not been ill with anything. The last time she was in here for treatment was June 17, this was reviewed. She received lactated Ringer's, Toradol, Reglan and IV Benadryl with improvement. We will try a these medications for her again. This does prompt some anxiety being here for her. I have tried to reassure her. MD elicited complaint: migraine Related Data Home Medications Medication Instructions Recorded Confirmed rimegepant 75 mg disintegrating 75 mg PO .As Needed PRN 04/16/22 07/20/23 tablet clonidine HCl 0.1 mg tablet 0.1 mg PO BID 06/16/23 07/20/23 hydroxyzine pamoate 50 mg capsule 50 mg PO 3XD PRN 06/16/23 07/20/23 ondansetron 4 mg disintegrating mg PO 06/16/23 07/20/23 tablet orphenadrine citrate 100 mg 100 mg PO BID PRN 06/16/23 07/20/23 tablet,extended release dextroamphetamine-amphetamine 20 20 mg PO QDAY 07/20/23 07/20/23 mg tablet (Adderall) dextromethorphan IR 45 1 tab PO QAM 07/20/23 07/20/23 mg-bupropion ER 105 mg biphasic tablet (Auvelity) Previous Rx's Medication Instructions Recorded metformin 500 mg tablet,extended 500 mg PO BID #180 tabs 06/22/23 release 24 hr Allergies Allergy/AdvReac Type Severity Reaction Status Date / Time iodine Allergy Unknown Itching Verified 05/22/23 13:23 Review of Systems Narrative: As per HPI. [facility] Medical History Right foot pain ?M79.671 - Pain in right foot (ICD-10) Sterilization (03/25/22) ?Z30.2 - Encounter for sterilization (ICD-10) Severe major depressive disorder ?F32.2 - Major depressive disorder, single episode, severe without psychotic features (ICD-10) Severe anxiety ?F41.9 - Anxiety disorder, unspecified (ICD-10) Posttraumatic stress disorder ?F43.10 - Post-traumatic stress disorder, unspecified (ICD-10) Polycystic ovary syndrome ?E28.2 - Polycystic ovarian syndrome (ICD-10) Morbid obesity with body mass index (BMI) of 40.0 to 44.9 in adult ?E66.01 - Morbid (severe) obesity due to excess calories (ICD-10) ?Z68.41 - Body mass index [BMI] 40.0-44.9, adult (ICD-10) Migraine headache ?G43.909 - Migraine, unspecified, not intractable, without status migrainosus (ICD-10) Menorrhagia with irregular cycle ?N92.1 - Excessive and frequent menstruation with irregular cycle (ICD-10) Insomnia ?G47.00 - Insomnia, unspecified (ICD-10) Encounter for insertion of subdermal contraceptive (03/25/22) ?Z30.017 - Encounter for initial prescription of implantable subdermal contraceptive (ICD-10) Bipolar disorder with depression ?F31.9 - Bipolar disorder, unspecified (ICD-10) Surgical History Status post surgical removal of both fallopian tubes (03/25/22) ?Z90.79 - Acquired absence of other genital organ(s) (ICD-10) Status post laparoscopic appendectomy ?Z90.49 - Acquired absence of other specified parts of digestive tract (ICD-10) Family History Father No problems noted. Other Bladder cancer Diabetes Liver cancer PCOS (polycystic ovarian syndrome) Social History Narrative: Bookshelver Single Nonsmoker, no alcohol use, no illicit drug use Smoking Status: Never smoker Do you use any of these nicotine containing products: None Second hand tobacco smoke exposure: No How often do you have a drink containing alcohol: never AUDIT-C Alcohol total score: 0 Non-prescribed substance use: marijuana (any form) Non-prescribed substance use details: THC Gummies every night, PT estimates 300 mg Exam Const: Vital Signs, click to edit/add: Vital Signs - 24 hr 08/10/23 11:25 08/10/23 13:36 Temperature 97.1 F L Pulse Rate [Pulse Oximeter] 103 H 89 Respiratory Rate 16 16 Blood Pressure [Ri ght Upper Arm] 138/90 H 132/78 Pulse Oximetry 100 99 Oxygen Delivery Me thod Room Air Room Air 28-year-old female seen in exam room 7, sitting up in the bed., tearful at times but alert, interactive, no apparent distress. She is wearing sunglasses. Can see through the sunglasses as they have some transparent C. She has a conjugate gaze, pupils look equal and round, symmetrical facial function, speech is normal. Neck is supple, no cervical adenopathy, no thyromegaly masses or nodules. Lungs are clear, good air entry, no wheezing or crackles. CV slightly fast but regular, no murmur, normal S1 and S2. Strength is 5 5 and symmetric, no tremors, patient was ambulatory into the ED of her own accord. Documenting provider has reviewed patient's vital signs: yes Course Course ED Course: Afebrile and neurologically intact 28-year-old female with history of migraines presenting with headache. This seems to be atypical but more severe migraine for her. Will do the IV medicines with fluids with lactated Ringer's, IV Benadryl, Reglan and Toradol. Will see how she response to this. At this time, do not feel that she requires any further workup such as labs or any neuro imaging. Reevaluation(s) Time of Reevaluation #1: 13:46 Reevaluation #1: Patient is feeling better, will plan to discharge to home to rest. She believes she will follow up with her neurologist in August. Vital Signs Vital signs: Initial Vital Signs Temperature 97.1 F L 08/10/23 11:25 Temperature Source Temporal Artery Scan 08/10/23 11:25 Pulse Rate 103 H 08/10/23 11:25 Respiratory Rate 16 08/10/23 11:25 Blood Pressure 138/90 H 08/10/23 11:25 Blood Pressure Mean 106 H 08/10/23 11:25 Blood Pressure Position Sitting 08/10/23 11:25 Pulse Oximetry 100 08/10/23 11:25 Oxygen Delivery Method Room Air 08/10/23 11:25 Vital Signs Temperature 97.1 F L 08/10/23 11:25 Pulse Rate 103 H 08/10/23 11:25 Respiratory Rate 16 08/10/23 11:25 Blood Pressure 138/90 H 08/10/23 11:25 Pulse Oximetry 100 08/10/23 11:25 Oxygen Delivery Method Room Air 08/10/23 11:25 Temperature 97.1 F L 08/10/23 11:25 Pulse Rate 89 08/10/23 13:36 Respiratory Rate 16 08/10/23 13:36 Blood Pressure 132/78 08/10/23 13:36 Pulse Oximetry 99 08/10/23 13:36 Oxygen Delivery Method Room Air 08/10/23 13:36 Discharge Plan Discharge Clinical Impression: Headache, migraine Patient Disposition: Home, Self-Care Condition: Stable Instructions: Migraine Headache (ED) Additional Instructions: Need to go home and rest. Contact your Neurology Clinic, see if your appointment might be able to be moved up in a cancellation spot. Otherwise please keep that appointment to further address your migraine management. Recommend drinking adequate fluids today, can use Tylenol and ibuprofen for any residual symptoms. Follow bottle directions for dosing on these medicines. Activity Level: Activity as Tolerated Prescriptions: No Action rimegepant 75 mg tablet,disintegrating 75 mg PO .As Needed PRN clonidine HCl 0.1 mg tablet 0.1 mg PO BID ondansetron 4 mg tablet,disintegrating PO orphenadrine citrate 100 mg tablet extended release 100 mg PO BID PRN hydroxyzine pamoate 50 mg capsule 50 mg PO 3XD PRN Auvelity 45-105 mg tablet,IR,delayed rel,biphasic 1 tab PO QAM dextroamphetamine-amphetamine [Adderall] 20 mg tablet 20 mg PO QDAY metformin 500 mg tablet extended release 24 hr 500 mg PO BID Qty: 180 1RF Rx Instructions: one tablet twice daily Follow Up/Referrals: Heaven Brunson PA-C [Primary Care Provider] - Stand Alone Forms: Diagnose.me Info Instructions
--- OUTSIDE RECORDS SUMMARY | 2023-08-10 11:45 | XMS_ITS | Patient Health Record ---
Author Name Unknown Organization [facility] Address [address] [place] [address] [address] [place] [address] Care Team Providers Care Bass Viol Repairer Name Role Phone Heaven Brunson Primary Care Provider UnavailGraeme Ulrich Unavailable [phone] Luis A Velazco Unavailable Unavailable Dale Lau Unavailable [phone] ALLERGIES Allergen (clinical drug ingredient) Drug/Non Drug [...] migrainosus (G43.001) Active confirmed Migraine without aura (90736852) Problem Other chronic pain (G89.29) Active confirmed Chronic pain (27032230) Problem Spondylosis without myelopathy or radiculopathy, cervical region (M47.812) Active confirmed Cervical spondylosis without myelopathy (624065470) Problem Headache, unspecified (R51.9) Active confirmed Headache (68647436) Encounters Encounter Location Date Provider Diagnosis [facility] [address] [place] [address] 01/22/2023 Dale Lau PLAN OF TREATMENT No Information Insurance Providers Payer Name Payer Address Payer Phone Subscriber Number Group Number Insured Name Patient Relationship to Insured Coverage Start Date Coverage End Date [facility] [address] [address] [place] [phone] [id number] Starr Remy Self - patient is the insured MEDICAL (GENERAL) HISTORY Medical History History ICD Code Anxiety Depression Headaches Migraines Surgical History Surgery Date(Month/Year) Appendectomy 11/08/2021
--- OUTSIDE RECORDS SUMMARY | 2023-08-10 11:46 | XMS_ITS | Continuity of Care Document ---
Author Name Unknown Organization [facility] y[facility]annes Address [address] [facility] [place] [address] Phone Care Team Providers Care Cashier Name Role Phone Will Julio VICKERS Unavailable [...] 8 HOURS NEEDED FOR HEADACHES - Active gabapentin 300 mg capsule take 2 capsule by oral route 3 times every day for Headache 600 MG - Active Zanaflex 2 mg capsule take 1-2 capsule b y oral route every 6 - 8 hours as needed not to exceed 3 doses in 24 hours for Headache - Active Effexor XR 150 mg capsule,extended [...] Diagnoses Date Provider Providers Copied on Encounter [facility], [address] [place] [address], [id number], [place] tel:[phone] [facility] No Information 2 Elver Kim. [address] [place], [place], [id number] , [place]. [phone] OFFICE/OUTPAT IENT VISIT, [facility], [address] [place] [address], [id number], [place] tel:[phone] [facility] headache (chief complaint) Chronic migraine w/o aura, not intractable, w/o stat migrNausea 0 Stephanie Man. [address] [facility] [address], [facility] [place], [id number] , [place]. tel:[phone] Referring Provider: Eliseo Carlton [facility] [address] [place], [address]. tel:[phone] [facility], [address] [facility] [place], [id number], [place] tel:[phone] [facility] Chronic migraine w/o aura, intractable, w/o stat migr 0 Rolandaongesa Magda. [address] [facility] [address], [place], [id number] , [place]. tel: [phone] Referring Provider: Eliseo Carlton [facility] [address] [place], [address]. tel:[phone] [facility], [address] [place], [id number], [place] tel:[phone] [facility] [place] No Information [address] [facility] [place], [id number] , [place]. tel:[phone] [facility], [address] [facility] [place], [id number], [place] tel:[phone] [facility] [place] Chronic migraine w/o aura, not intractable, w/o stat migrChronic migraine w/o aura, intractable, w/o stat migr Feb- 0 Nyongesa Magda. [address], [place], [id number] , [place]. tel: [phone] Referring Provider: Eliseo Carlton [facility] [address] [place], [address]. tel:[phone] [facility], [address] [facility] [place], [id number], [place] tel:[phone] [facility] [place] No Information 0 Nyongesa Magda. [address] [place] [address], [place], [id number] , [place]. tel:[phone] [facility], [address] [facility] [place], [id number], [place] tel:[phone] [facility] [place] Chronic migraine w/o aura, intractable, w/o stat migr Nov-0 -201 9 Nyongesa Magda. [address] [facility] [address], [place], [id number] , [place]. tel:[phone] Referring Provider: Eliseo Carlton [facility] [address] [place], [address]. tel:[phone] [facility], [address] [facility] [place], [id number], [place] tel:[phone] [facility] [place] Chronic migraine w/o aura, intractable, w/o stat migr 9 [facility]. [address], [place], [id number] , [place]. [phone] Referring Provider: Eliseo Carlton [facility] [address] [place], [address]. tel:[phone] OFFICE/OUTPAT IENT VISIT, [facility], [address] [facility] [place], [id number], [place] tel:[phone] [facility] headache (chief complaint) Chronic migraine w/o aura, not intractable, w/o stat migrChronic pain syndromeOther terminal supervisor (current) drug therapy [facility]. [address], [place], [id number] , [place]. tel:[phone] Referring Provider: Eliseo Carlton [facility] [address] [place], [address]. tel:[phone] [facility], [address] [facility] [place], [id number], [place] tel:[phone] [facility] [place] Chronic migraine w/o aura, not intractable, w/o stat migr 9 Strickland Garett. [facility] [employer], [address], [place], [address], [place]. [phone] Referring Provider: Eliseo Carlton [facility] [address] [place], [address]. tel:[phone] OFFICE/OUTPAT IENT VISIT, [facility], [address] [facility] [place], [id number], [place] tel:[phone] [facility] headache (chief complaint) Chronic pain syndromeChronic migraine w/o aura, not intractable, w/o stat migrOther terminal supervisor (current) drug therapy [facility]. [address] [facility] [address], [place], [id number] , [place]. [phone] Referring Provider: Eliseo Carlton [facility] [address] [place], [address]. tel:[phone] OFFICE/OUTPAT IENT VISIT, [facility], [address] [place], [place], [id number], [place] tel:[phone] [facility] headache (chief complaint) Chronic migraine w/o aura, not intractable, w/o stat migrChronic migraine w/o aura, intractable, w/o stat migrChronic pain syndrome [facility]. [address], [place], [id number] , [place]. [phone] Referring Provider: Eliseo Carlton [facility] [address] [place], [address]. tel:[phone] [facility], [address] [place], [place], [id number], [place] tel:[phone] [facility] Chronic migraine w/o aura, intractable, w/o stat migr [facility]. [address], [place], [id number] , [place]. [phone] Referring Provider: Eliseo Carlton [facility] [address] [place], [address]. tel:[phone] OFFICE/OUTPAT IENT VISIT, [facility], [address] [place], [place], [id number], [place] tel:[phone] [facility] headache (chief complaint) Chronic pain syndromeChronic migraine w/o aura, not intractable, w/o stat migr 201 9 Stephanie Man. [address], [place], [id number] , [place]. tel:[phone] Referring Provider: Eliseo Carlton [facility] [address] [place], [address]. tel:[phone] OFFICE/OUTPAT IENT VISIT, [facility], [address] [place], [place], [id number], [place] tel:[phone] [facility] [place] Headache (chief complaint) Chronic migraine w/o aura, not intractable, w/o stat migrChronic pain syndrome 9 Marco A Bajwa. [employer], [address], [place], [address], [place]. [phone] Referring Provider: Eliseo Carlton [facility] [address] [facility] [place], [address]. tel:[phone] Family History Family Member Type Diagnosis Age At Onset Problem (finding) Family history of chron ic migraines Payers Payer name Insurance type Covered green party ID Authoriza tiemile(s) [employer] [id number] Social History Type Description Quantity Date Captured Comments Sex Female Smoking Status No Information Chief Complaint And Reason For Visit No Information Reason For Referral Reason For Referral No Information Plan Of Treatment Date Type Action Status Referral Ordered: Andrez Krause -Family Medicine (related to Chronic migraine w/o aura, not intractable, w/o stat migr) ordered Referral Referred To: Andrez Krause [facility] [place], [phone] Ordered: Referrals: Family Medicine. Andrez Krause ordered History Of Present Illness Encounter Date Complaint History Of Prese nt Illness headache (comments) Patient with 4/day severe headaches, associated with light sensitivity and nausea. Pt. requesting Toradol injection headache Severity: incapa citating. It occurs constantly. The problem is worse. Location is vertex. There is no radiation. The describes it as sharp and throbbing. Symptom is aggravated by noise and light. Denies relieving factors. headache (comments) Starr is here for follow [...] include fever, nausea and vomiting. headache Severity: 8. It occurs constantly, has [...] negatives include fever, nausea and vomiting. Headache (comments) Starr is here for initial consult for chronic migraines, referred by Dr. Andrez Krause. She has had intermittent migraine episodes since childhood. Migraines start suddenly with no warning-- pain in top of head with nausea 20% of the time. Has seen her neurology at [facility], did not stay with [facility] due to insurance reasons. Headaches >15 days a monthAnn is interested in any treatment option and would like [facility] to assume management of pain care.Previous treatments [...] - worsened headache, chiropractor - no help. Headache Severity: 6. It occurs intermittently, has chronic duration, and is worse. Location is entire head. The describes it as ache. Symptom is aggravated by bright lights, sounds and smells. Relieving factors include ice, massage, rest and meds. Pertinent negatives include fever. Functional Status Date Functional Assessmen t No Information Instructions Date Instruction Additional Infor mation No Information Assessments Type Assessment Date No Information Patient Care Teams Name Effective Dates (start - stop) Status Members No Information
[2023-08-10] MEDS: METOCLOPRAMIDE HCL 10 MG in 0.9 % SODIUM CHLORIDE 100 ml 100 ML 306 MG IVPB (12:03)
[2023-08-10] MEDS: KETOROLAC 15 MG/ML inj IVP (12:08)
[2023-08-10] MEDS: diphenhydrAMINE 50 MG/ML inj 25 MG IVP (12:10)
[2023-08-10] MEDS: LACTATED RINGERS 1000 ML 1,000 ML 500 ML IV (12:14)
[2023-08-10 13:36] VITALS: BP 132/78; PULSE 89; RESP 16; O2SAT 99
[2023-08-10 13:46] VITALS: BP 128/83; PULSE 90; RESP 20; O2SAT 98
== END 2023-08-10 13:58 | disposition home or self-care (01) ==
PROVIDERS: Emergency Provider Family Medicine; PCP Physician Assistant Medical
DX: G43.909 Migraine, unspecified, not intractable, without status migrainosus (principal)
CPT/HCPCS: 96365; 96375; 99284; J1200; J1885; J2765; J7120

== ENCOUNTER 2023-08-31 14:06 | Emergency (ER) | payer BC, SELFPAY ==
[2023-08-31 14:42] VITALS: BP 152/85; PULSE 57; RESP 16; TEMP 36.4; O2SAT 95; BMI 37.9
--- OUTSIDE RECORDS SUMMARY | 2023-08-31 15:51 | XMS_ITS | Patient Health Record ---
Author Name Unknown Organization [facility] Address [address] [place] [address] [address] [place] [address] Care Team Providers Care Assistant Surveyor Name Role Phone Heaven Brunson Primary Care Provider UnavailGraeme Ulrich Unavailable [phone] Luis A Velazco Unavailable Unavailable Dale Lau Unavailable [phone] ALLERGIES Allergen (clinical drug ingredient) Drug/Non Drug [...] migrainosus (G43.001) Active confirmed Migraine without aura (76043588) Problem Other chronic pain (G89.29) Active confirmed Chronic pain (12297186) Problem Spondylosis without myelopathy or radiculopathy, cervical region (M47.812) Active confirmed Cervical spondylosis without myelopathy (518239110) Problem Headache, unspecified (R51.9) Active confirmed Headache (65303463) Encounters Encounter Location Date Provider Diagnosis [facility] [address] [place] [address] 01/22/2023 Dale Lau PLAN OF TREATMENT No Information Insurance Providers Payer Name Payer Address Payer Phone Subscriber Number Group Number Insured Name Patient Relationship to Insured Coverage Start Date Coverage End Date [facility] [address] [address] [place] [phone] [id number] Starr Remy Self - patient is the insured MEDICAL (GENERAL) HISTORY Medical History History ICD Code Anxiety Depression Headaches Migraines Surgical History Surgery Date(Month/Year) Appendectomy 11/08/2021
== END 2023-08-31 16:25 | disposition left against medical advice (07) ==
PROVIDERS: Emergency Provider Emergency Medicine Emergency Medical Services; PCP Physician Assistant Medical
DX: Z53.21 Procedure and treatment not carried out due to patient leaving prior to being seen by health care provider (principal)

== ENCOUNTER 2023-10-19 14:30 | Outpatient (CLI) | payer BC, SELFPAY ==
--- OUTSIDE RECORDS SUMMARY | 2023-10-19 14:41 | XMS_ITS | Patient Health Record ---
Author Name Unknown Organization [facility] Address [address] [place] [address] [address] [place] [address] Care Team Providers Care Salad Counter Attendant Name Role Phone Heaven Brunson Primary Care Provider UnavailGraeme Ulrich Unavailable [phone] Luis A Velazco Unavailable Unavailable Dale Lau Unavailable [phone] ALLERGIES Allergen (clinical drug ingredient) Drug/Non Drug [...] migrainosus (G43.001) Active confirmed Migraine without aura (54779158) Problem Other chronic pain (G89.29) Active confirmed Chronic pain (75199317) Problem Spondylosis without myelopathy or radiculopathy, cervical region (M47.812) Active confirmed Cervical spondylosis without myelopathy (983501219) Problem Headache, unspecified (R51.9) Active confirmed Headache (87195775) Encounters Encounter Location Date Provider Diagnosis [facility] [address] [place] [address] 01/22/2023 Dale Lau PLAN OF TREATMENT No Information Insurance Providers Payer Name Payer Address Payer Phone Subscriber Number Group Number Insured Name Patient Relationship to Insured Coverage Start Date Coverage End Date [facility] [address] [address] [place] [phone] [id number] Starr Remy Self - patient is the insured MEDICAL (GENERAL) HISTORY Medical History History ICD Code Anxiety Depression Headaches Migraines Surgical History Surgery Date(Month/Year) Appendectomy 11/08/2021
--- OUTSIDE RECORDS SUMMARY | 2023-10-19 14:41 | XMS_ITS | Clinical Summary ---
Author Name Unknown Organization [facility] Address [place], [place] [address] Care Team Providers Care Treasury Analyst Name Role Phone Heaven Brunson PA-C Primary Care Provider [phone] Allergies Active Allergy Reactions Criticality Noted Date Comments Adhesive Contact Dermatitis,Itching,Rash 04/11 Iodine Contact Dermatitis,Itching,Rash 04/11 Medications Medication Sig Dispensed Refills Start Date End Date Status cholecalciferol, Vitamin D3, 2,000 unit tablet Take 50 mcg by mouth. 0 Active Aimovig Autoinjector 140 mg/mL atIn Take 1 injection once monthly 0 01/31/2021 Active b complex vitamins (VITAMIN B COMPLEX) capsule Take 1 Capsule by mouth. 0 Active Viibryd 20 mg tablet Take 20 mg by mouth once daily. 0 01/10/2022 Active hydrOXYzine HCL (ATARAX) 50 mg tablet 1 tablet as needed 0 Active metFORMIN (GLUCOPHAGE) 1,000 mg tablet 0 Active Vyvanse 30 mg capsule 1 cap(s) orally every morning* 0 03/24/2023 Active risperiDONE (RISPERDAL) 0.5 mg tablet 1 tab orally at every bedtime* 0 02/23/2023 Active buPROPion (WELLBUTRIN XL) 150 mg Extended-Release tablet 1 tab orally every morning* 0 04/12/2023 Active etonogestrel subdermal implant (Nexplanon) 68 mg implant 0 Active Qulipta 60 mg tab Take 1 Tablet by mouth once daily. 0 03/23/2023 Active busPIRone (BUSPAR) 10 mg tablet Take 1 tablet by mouth three times a day 0 Active buPROPion 174 mg Extended-Release tablet 0 Active cloNIDine HCL (CATAPRES) 0.1 mg tablet 1-2 tab(s) orally at every bedtime* 0 07/25/2023 Active ondansetron (ZOFRAN) 4 mg tablet Take 1 tablet every 8 hours, as needed, for nausea 0 Active naltrexone (REVIA) 25 mg as half tablet 0 Active orphenadrine (NORFLEX) 100 mg tablet Take 1 tablet by mouth twice a day. As needed for pain* 0 07/02/2023 Active Active Problems Problem Noted Date Diagnosed Date Major depressive disorder, single episode, moder ate 2007 Dysthymic disorder 2007 Rule Out - GENERALIZED ANXIETY DISORDER 02/12/20 07 Encounters Date Type Department Care Team Description 08/26/[address] [address] [place] [address] Gabriel Josue DPM <No scans attached> 08/18/2023 4:00 PM MEDIA RELATIONS INTERN Ancillary Procedure [facility] [address] [place] [address] 08/18/2023 3:00 PM MEDIA RELATIONS INTERN Office [facility] [address] [place] [address] Gabriel Josue DPM Consult (Bilateral foot pain) 08/18/2023 Travel from Last 3 Months Immunizations Name Administration Dates Next Due DTP-HIB 05/14/1994, 3,1993,05/08 DTaP 03/28/1998 HPV 9 (Gardasil 9) 02/12/2007 Hepatitis A (Adult) 04/24/2010 Hepatitis A, Unspecified 04/24/2010 Hepatitis B (Peds) 1993,1993, 993 Human Papilloma Virus Vaccine 09/20/2007, 007,02/12/2007 Influenza A (H1N1), Inactivated 10/17/2009 Influenza A (H1N1), Inactiva sai (Age >=3 Years) 10/17/2009 Influenza Virus, Unspecified 08/27/2010 MMR 06/21/1997,02/13/1994 Meningococcal Vaccine (Menveo) 04/24/2010 Oral Polio Vaccine 03/28/1998, 4,1993,05/08 Td (Age >=7 Years) 02/07/2021,02/12/2005 Td, Preservative Free (age >= 7 Years) ,02/12/2005 Tdap 01/03/2011 Family History Medical History Relation Name Comments Psychiatric illness Mother Latasha Depressi on, anxiety - she has not had good results on medication, except Serzone Relation Name Status Comments Mother Latasha Social History Tobacco Use Types Packs/Day Years Used Date Smoking Tobacco: Never Smokeless Tobacco: Never Alcohol Use Standard Drinks/Week Comments Yes 1 (1 standard drink = 0.6 oz pur e alcohol) occasinally PHQ-2 Answer Date Recorded PHQ-2 TOTAL SCORE 6 02/25/2021 Social Connections Answer Date Recorded Frequency of Communication with Friends and Fami ly Not on file 10/08/2021 Financial Resource Strain Answer Date R ecorded Difficulty of Paying Living Expenses Not on file 10/08/2021 Difficulty of Paying Living Expenses Not on file 10/08/2021 Sex and Gender Information Value Date Recorded Sex Assigned at Not on file Gender Identity Not on file Sexual Orientation Not on file Obstetrics History Last Filed Vital Signs Vital Sign Reading Time Taken Comments Blood Pressure 139/90 08/18/2023 2:52 PM [facility]IA RELATIONS INTERN Pulse 104 08/18/2023 2:52 PM MEDIA RELATIONS INTERN Temperature 38.8 ??C (101.8 ??F) 02/12/2011 7:22 PM C DT Respiratory Rate 16 05/22/2023 1:51 PM CDT Oxygen Saturation 99% 08/18/2023 2:52 PM MEDIA RELATIONS INTERN Inhaled Oxygen Concentration - - Weight 107.5 kg (237 lb) 05/22/2023 1:51 PM CDT Height 165.1 cm (5' 5) 02/04/2022 8:25 AM CDT Body Mass Index 39.44 02/04/2022 8:25 AM CDT Plan of Treatment Upcoming Encounters Date Type Department Care Team (Late st Contact Info) Description 10/26/2023 10:30 AM MEDIA RELATIONS INTERN Office [facility] [address] [place] [phone] SteGabriel ramirez DPM [address] [place] [address] 10/28/2023 1:00 PM MEDIA RELATIONS INTERN [facility] [address] [place] [address] Gabriel Josue DPM [address] [place] [address] 11/11/2023 1:15 PM MEDIA RELATIONS INTERN Office [facility] [address] [place] [address] Gabriel Josue DPM [address] [place] [address] 12/02/2023 1:00 PM MEDIA RELATIONS INTERN [facility] [address] [place] [address] Gabriel Josue DPM [address] [place] [address] Health Maintenance Due Date Last Done Comments HIV for age 15-65 02/12/2008 Hepatitis C screening for age 18-79 2011 Depression screening for age 12+ 02/25/2022 02/25/2021 BMI (ht and wt on same day) for age 18+ 02/04/2023 02/04/2022, 02/25/2021 COVID-19 vaccine series ( season) 2023 02/25/2021 Influenza for age 9-49 06/12/2023 0, 10/17/2009, 10/17/2009 Pap test for age 21-65 10/21/2024 10/21/2021, 2021 Tetanus booster 02/07/2031 02/07/2021, 0406/2021, 01/03/2011, Additional history exists Tdap Completed 01/03/2011 Pneumococcal series for age 6-64 Aged Out No longer eligible based on patient's age to complete this topic Procedures Procedure Name Priority Date/Time Associated Diagnosis Comments XR FOOT 3 VIEWS RIGHT Routine 08/18/2023 3:40 PM MEDIA RELATIONS INTERN Plantar fasciitis from Last 3 Months Results * XR FOOT 3 VIEWS RIGHT (08/18/2023 3:40 PM MEDIA RELATIONS INTERN) Anatomical Region Laterality Modality FEET, FOOT R Computed Radiogr aphy 08/18/2023 4:10 PM MEDIA RELATIONS INTERN Narrative 08/18/2023 4:10 PM MEDIA RELATIONS INTERN For Patients: ??As a result of the Cures Act, medical imaging exams and procedure reports are released immediately into your electronic medical record. ??You may view this report before your referring provider. ??If you have questions, please contact your health care provider. Indication: Right foot pain. Technique: Right foot 3 views Comparison: None Findings: Mildly displaced intra-articular fracture involving the base of the right little toe proximal phalanx noted. Midfoot alignment normal. Intact hindfoot. Impression: Mildly displaced intra-articular fracture involving the base of the right little toe proximal phalanx. Dictated by Sin Bergman MD @ Aug ??2022 ??4:10PM (Electronically Signed) ?? Procedure Note Sin Bergman MD - 08/18/2023 For Patients: As a result of the Cures Act, medical imagingexams and procedure reports are released immediately into your electronicmedical record. You may view this report before your referring provider.If you have questions, please contact your health care provider. Indication: Right foot pain. Technique: Right foot 3 views Comparison: None Findings: Mildly displaced intra-articular fracture involving the base of the rightlittle toe proximal phalanx noted. Midfoot alignment normal. Intacthindfoot. Impression: Mildly displaced intra-articular fracture involving the base of the rightlittle toe proximal phalanx. Dictated by Sin Bergman MD @ Aug 18 2023 4:10PM (Electronically Signed) Gabriel Josue [facility] from Last 3 Months Care Teams Treasury Analyst Relationship Specialty Start Date End Date Heaven Brunson PA-C [address] [place] [address] PCP - General Emergency Medicine 02/04/22
--- OUTSIDE RECORDS SUMMARY | 2023-10-19 14:42 | XMS_ITS | Encounter Summary ---
Author Name Unknown Organization [place] Address [address] [place] [address] Care Team Providers Care Furniture Restorer Name Role Phone Andrez Krause PA-C Primary Care Provider Andrez Krause PA-C Unavailable [phone] Mona Tian MD Unavailable [phone] Heaven Brunson PA-C Primary Care Provider Brett Torres MD Unavailable [phone] Karen Galvan PA-C Unavailable [phone] Marie Lawrence [facility] Unavailable [phone] Encounter Details Date Type Department Care Team (Late st Contact Info) Description 07/13/2020 [facility] [address] [address] [facility] Social History Tobacco Use Types Packs/Day Years Used Date Smoking Tobacco: Never Smokeless Tobacco: Never Alcohol Use Standard Drinks/Week Comments Yes 0 (1 standard drink = 0.6 oz pur e alcohol) Social, rare PHQ-2 Answer Date Recorded PHQ-2 Score 3 02/17/2019 Sex and Gender Information Value Date Recorded Sex Assigned at Female 11/04/2018 8:36 AM REGISTRATION SCHEDULING SPECIALIST Gender Identity Female 11/04/2018 8:36 AM REGISTRATION SCHEDULING SPECIALIST Sexual Orientation Straight 11/04/2018 8: 36 AM REGISTRATION SCHEDULING SPECIALIST documented as of this encounter Plan of Treatment Not on file documented as of this encounter Visit Diagnoses Not on filedocumented in this encounter Additional Health Concerns Assessment Noted Time PHQ-9 Depression Total Score: 23 05/05/2 019 9:13 AM CDT documented as of this encounter Care Teams Furniture Restorer Relationship Specialty Start Date End Date Andrez Krause PA-C PCP - General Physician Insurance And Financial Services Agent - Medical 10/09/15 05/29/21 Heaven Brunson PA-C [facility] [address] [place] [address] PCP - General Physician Insurance And Financial Services Agent 05/30/21 Andrez Krause PA-C [address] [place] [address] Assigned PCP 09/13/15 06/20/22 Mona Tian MD [address] [place] [address] Assigned OBGYN Provider 08/03/20 Brett Torres [facility] [address] [facility] [address] [place], [place] [address] Assigned Behavioral Health Provider 07/14/21 01/02/23 Karen Galvan PA-C 6363 [facility] 103 [place], [place] [address] Assigned Sleep Provider 09/01/21 Marie Lawrence [facility] 5775 [facility] [address] [place], [place] [address] Assigned MTM Pharmacist 04/05/22 documented as of this encounter
--- OUTSIDE RECORDS SUMMARY | 2023-10-19 14:42 | XMS_ITS | Clinical Summary ---
Author Name Unknown Organization [place] Address [address] [place] [address] Care Team Providers Care Workday Director Name Role Phone Heaven Brunson PA-C Primary Care Provider Allergies No known active allergies Medications Medication Sig Dispensed Refills Start Date End Date Status rizatriptan (MAXALT-DRILLING CONTRACTOR) 5 MG ODTIndications:Migra ine without aura and without status migrainosus, not intractable Take 10 mg by mouth at onset of headache 0 04/24/2019 Active ubrogepant (UBRELVY) 50 MG tabletIndications:Mi graine without aura and without status migrainosus, not intractable Take 1 tablet (50 mg) by mouth at onset of headache 2 tablet 1 04/16/2020 Active Additional Information Patient not taking.Reported on 06/28/2021 desogestrel-ethinyl estradiol (VIORELE) 0.15-0.02/0.01 MG (21/5) tablet Viorele (28) 0.15 mg-0.02 mg (21)/0.01 mg (5) tablet TAKE 1 TABLET BY MOUTH DAILY 0 Active UBRELVY 100 MG tablet TK 1 T PO AT ONSET OF HEADACHE. CAN REPEAT ONCE IN 2 HOURS PRN 0 07/04/2020 Active NURTEC 75 MG TBDP Take 1 tablet at onset of headache 0 05/28/2021 Active QUETIAPINE FUMARATE ER PO Take 25 mg by mouth daily 0 10/18/2020 Active MELATONIN PO 0 Active Hospital, Clinic, or Other Facility Administered Medication Ordered Dose Route Frequency Start Date End Date Status ondansetron (ZOFRAN) injection 4 mgIndications:Migraine without aura and without status migrainosus, not intractable 4 mg IV ONCE 01/20/2020 Active Active Problems Problem Noted Date Diagnosed Date MTHFR gene mutation 05/22/2019 Severe episode of recurrent major depressive disorder, without psychotic features 06/23/2016 SHAYY (generalized anxiety disorder) 04/22/2016 Other abnormal cytological finding of specimen f rom cervix 10/10/2015 HPV (human papilloma virus) infection 10/10/2015 Migraine without aura and wi thout status migrainosus, not intractable 10/10/2015 CARDIOVASCULAR SCREENING; LDL GOAL LESS THAN 160 10/09/2015 Resolved Problems Problem Noted Date Diagnosed Date Resolved Date ASCUS of cervix with negative high risk HPV 11/20/2016 08/06/2018 Overview: 11/20/16 ASCUS, Neg HPV, 21 yrs old. Plan for pap cyto only (no HPV) in 12 months, due 11/201707/27/18 NIL, Neg HPV. Routine screening Adjustment disorder with mix ed anxiety and depressed mood 10/10/2015 06/23/2016 Encounters Date Type Department Care Team Description 09/10/2023 Telephone [facility] Neuropsychology [address] 3rd [place] [address] Mariia Santillan MA 09/10/2023 Transcribe Orders GENERIC EXTERNAL DATA DEPARTMENT Provider, Generic External Data Insomnia (Primary Dx); Binge eating disorder; Attention deficit hyperactivity disorder, predominantly inattentive type; Stress and adjustment reaction; Social phobia; Dysthymia; Moderate recurrent major depression (H) 09/09/2023 Medical Correspondence [facility] [address] [place] [address] Outside, Provider from Last 3 Months Immunizations Name Administration Dates Next Due COVID-19 Vaccine (Vivek) 02/25/2021 DTAP (<7y) 03/28/1998 DTP-Hib 05/14/1994,1993,1993 ,1993 Flu, Unspecified 08/27/2010 HEPA 04/24/2010 HPV 02/12/2007 HPV Quadrivalent 09/20/2007,05/19/2007 Influenza (H1N1) 10/17/2009 Influenza Intranasal Vaccine 08/27/2010 MMR 06/21/1997,02/13/1994 Meningococcal ACWY (Menveo??) 04/24/2010 TD,PF 7+ (Tenivac) 02/07/2021,02/12/2005 TDAP (Adacel,Boostrix) 01/03/2011 Td (Adult), Adsorbed 02/07/2021 Family History Medical History Relation Comments Other Cancer Cousin 1 Thyroid Disease Cousin 2 Unknown/Adopted Father Diabetes Maternal Grandmother Anxiety Disorder Mother Depression Mother Anesthesia Reaction No family hx of Asthma No family hx of Breast Cancer No family hx of Cerebrovascular Disease No family hx of Colon Cancer No family hx of Coronary Artery Disease No family hx of Genetic Disorder No family hx of Hyperlipidemia No family hx of Hypertension No family hx of Mental Illness No family hx of Obesity No family hx of Osteoporosis No family hx of Prostate Cancer No family hx of Substance Abuse No family hx of Relation Status Comments Cousin 1 Cousin 2 Father Maternal Grandfather Alive Maternal Grandmother Mother Alive Paternal Grandfather Paternal Grandmother Sister Alive Social History Tobacco Use Types Packs/Day Years Used Date Smoking Tobacco: Never Smokeless Tobacco: Never Tobacco Cessation:Counseling Given: No Alcohol Use Standard Drinks/Week Comments Yes 0 (1 standard drink = 0.6 oz pur e alcohol) Social, rare PHQ-2 Answer Date Recorded PHQ-2 Score 6 07/03/2021 Adolescent Education Answer Date Record ed Getting School Help Needed Not on file 07/03 Sex and Gender Information Value Date Recorded Sex Assigned at Female 11/04/2018 8:36 AM GLAZIER APPRENTICE Gender Identity Female 11/04/2018 8:36 AM GLAZIER APPRENTICE Sexual Orientation Straight 11/04/2018 8: 36 AM GLAZIER APPRENTICE Last Filed Vital Signs Vital Sign Reading Time Taken Comments Blood Pressure 132/83 07/03/2021 12:55 PM CDT Pulse 91 07/03/2021 12:55 PM CDT Temperature 36.4 ??C (97.6 ??F) 07/03/2021 12:55 PM C DT Respiratory Rate 15 10/30/2019 9:30 PM GLAZIER APPRENTICE Oxygen Saturation 99% 10/30/2019 10:45 PM GLAZIER APPRENTICE Inhaled Oxygen Concentration - - Weight 112 kg (247 lb) 07/03/2021 12:55 PM CDT Height 167.6 cm (5' 6) 07/03/2021 12:55 PM CDT Body Mass Index 39.87 07/03/2021 12:55 PM CDT Plan of Treatment Health Maintenance Due Date Last Done Comments ADVANCE CARE PLANNING 1993 ANNUAL REVIEW OF HM ORDERS 1993 HEPATITIS B IMMUNIZATION (1 of 3 - 3-dose series) 1993 HIV SCREENING 02/12/2008 HEPATITIS C SCREENING 2011 YEARLY PREVENTIVE VISIT 07/27/2019 07/27/20 18, 11/20/2016, 10/09/2015 PAP 07/27/2021 07/27/2018, 06/2017, 10/09/2015 PHQ-9 12/31/2021 07/03/2021, 06/12, 06/05/2021, Additional history exists COVID-19 Vaccine ( season) 2023 02/25/2021 INFLUENZA VACCINE (#1) 2023 9 (Declined), 08/27/2010, 08/27/2010, Additional history exists DTAP/TDAP/TD IMMUNIZATION (9 - Td or Tdap) 02/07/2031 02/07/2021, 02/07/2021, 01/03/2011, Additional history exists HPV IMMUNIZATION Completed 09/20/2007, 05/2007, 02/12/2007 MENINGITIS IMMUNIZATION Completed 04/24/2010 MIGRAINE ACTION PLAN Completed 10/10/2015 DEPRESSION ACTION PLAN Completed 8, 07/27/2018, 07/06/2017, Additional history exists IPV IMMUNIZATION Aged Out No longer e ligible based on patient's age to complete this topic Pneumococcal Vaccine: Pediatrics (0 to 5 Years) and At-Risk Patients (6 to 64 Years) Aged Out No longer eligible based on patient's age to complete this topic RSV MONOCLONAL ANTIBODY Aged Out No l onger eligible based on patient's age to complete this topic Care Teams Workday Director Relationship Specialty Start Date End Date Heaven Brunson PA-C [facility] [address] [place], [place] [id number] PCP - General Physician Human Development Professor 05/30/21
--- OUTSIDE RECORDS SUMMARY | 2023-10-19 14:42 | XMS_ITS | Encounter Summary ---
Author Name Unknown Organization [place] Address [address] [place] [address] Care Team Providers Care Citrix Architect Name Role Phone JimiAndrez PA-C Unavailable [phone] Heaven Brunson PA-C Primary Care Provider Brett Torres MD Unavailable Karen Galvan PA-C Unavailable [phone] Marie Lawrence [facility] Unavailable Encounter Details Date Type Department Care Team (Late st Contact Info) Description 07/03/2021 MyC Medical Advice [facility] [address] [facility] [address] [place] [address] Brett Torres MD [facility] [address] [facility] [address] [place] [address] Social History Tobacco Use Types Packs/Day Years Used Date Smoking Tobacco: Never Smokeless Tobacco: Never Alcohol Use Standard Drinks/Week Comments Yes 0 (1 standard drink = 0.6 oz pur e alcohol) Social, rare PHQ-2 Answer Date Recorded PHQ-2 Score 6 07/03/2021 Sex and Gender Information Value Date Recorded Sex Assigned at Female 11/04/2018 8:36 AM WELL CLEANER Gender Identity Female 11/04/2018 8:36 AM WELL CLEANER Sexual Orientation Straight 11/04/2018 8: 36 AM WELL CLEANER COVID-19 Exposure Response Date Recorded In the last month, have you been in contact with someone who was confirmed or suspected to have Coronavirus / COVID-19? No / Unsure 07/03/2021 12:45 PM CDT documented as of this encounter Plan of Treatment Not on file documented as of this encounter Visit Diagnoses Not on filedocumented in this encounter Additional Health Concerns Assessment Noted Time PHQ-9 Depression Total Score: 24 021 12:59 PM CDT documented as of this encounter Care Teams Citrix Architect Relationship Specialty Start Date End Date Heaven Brunson PA-C [facility] [address] [place] [address] PCP - General Physician Master Automotive Technician 05/30/21 Andrez Krause PA-C [address] [facility] [address] Assigned PCP 09/13/15 06/20/22 Brett Torres MD [facility]INIC [address] [facility] [address] [place], [place] [address] Assigned Behavioral Health Provider 07/14/21 01/02/23 Karen Galvan PA-C [address] [facility] [address] [place], [place] [address] Assigned Sleep Provider 09/01/21 Marie Lawrence, [facility] 5775 [facility] [address] [place] [address] Assigned MTM Pharmacist 04/05/22 documented as of this encounter
--- OUTSIDE RECORDS SUMMARY | 2023-10-19 14:42 | XMS_ITS | Referral Summary ---
Author Name Unknown Organization [place] Address [address] [place] [address]. [place] [address] Care Team Providers Care Cell Operation Supervisor Name Role Phone Heaven Brunson PA-C Primary Care Provider Encounters Date Type Department Care Team Description 09/10/2023 Telephone [facility] Neuropsychology [address] 3rd [place] [address] Mariia Santillan MA 09/10/2023 Transcribe Orders GENERIC EXTERNAL DATA DEPARTMENT Provider, Generic External Data Insomnia (Primary Dx); Binge eating disorder; Attention deficit hyperactivity disorder, predominantly inattentive type; Stress and adjustment reaction; Social phobia; Dysthymia; Moderate recurrent major depression (H) 09/09/2023 [facility] [address] [place] [address] Outside, Provider from Last 3 Months Allergies No known active allergies Medications Medication Sig Dispensed Refills Start Date End Date Status rizatriptan (MAXALT-NURSE ADVOCATE) 5 MG ODTIndications:Migra ine without aura and [...] ed anxiety and depressed mood 10/10/2015 06/23/2016 Immunizations Name Administration Dates Next Due COVID-19 Vaccine (Vivek) 02/25/2021 DTAP (<7y) 03/28/1998 DTP-Hib 05/14/1994,1993,1993 ,1993 Flu, Unspecified 08/27/2010 HEPA 04/24/2010 HPV 02/12/2007 HPV Quadrivalent 09/20/2007,05/19/2007 Influenza (H1N1) 10/17/2009 Influenza Intranasal Vaccine 08/27/2010 MMR 06/21/1997,02/13/1994 Meningococcal ACWY (Menveo??) 04/24/2010 TD,PF 7+ (Tenivac) 02/07/2021,02/12/2005 TDAP (Adacel,Boostrix) 01/03/2011 Td (Adult), Adsorbed 02/07/2021 Social History Tobacco Use Types Packs/Day Years [...] Sex Assigned at Female 11/04/2018 8:36 AM AGGREGATE CONVEYOR OPERATOR Gender Identity Female 11/04/2018 8:36 AM AGGREGATE CONVEYOR OPERATOR Sexual Orientation Straight 11/04/2018 8: 36 AM AGGREGATE CONVEYOR OPERATOR Last Filed Vital Signs Vital Sign Reading Time Taken Comments Blood Pressure 132/83 07/03/2021 12:55 PM CDT Pulse 91 07/03/2021 12:55 PM CDT Temperature 36.4 ??C (97.6 ??F) 07/03/2021 12:55 PM C DT Respiratory Rate 15 10/30/2019 9:30 PM AGGREGATE CONVEYOR OPERATOR Oxygen Saturation 99% 10/30/2019 10:45 PM AGGREGATE CONVEYOR OPERATOR Inhaled Oxygen Concentration - - Weight 112 kg (247 lb) 07/03/2021 12:55 PM CDT Height 167.6 cm (5' 6) 07/03/2021 12:55 PM CDT Body Mass Index 39.87 07/03/2021 12:55 PM CDT Plan of Treatment Not on file Care Teams Cell Operation Supervisor Relationship Specialty Start Date End Date Heaven Brunson PA-C [facility] [address] [place] [address] PCP - General Physician Traffic Analysis Technician 05/30/21
--- OUTSIDE RECORDS SUMMARY | 2023-10-19 14:42 | XMS_ITS | Encounter Summary ---
Author Name Unknown [facility] Address [address] [place] [address] Care Team Providers Care Silk Top Hat Body Maker Name Role Phone Heaven Brunson PA-C Primary Care Provider Encounter Details Date Type Department Care Team (Late st Contact Info) Description 09/10/2023 Telephone [facility] Neuropsychology [address] [place] [address] Mariia Santillan MA Social History Tobacco Use Types Packs/Day Years [...] Sex Assigned at Female 11/04/2018 8:36 AM SPECIAL EVENTS FUNDRAISER Gender Identity Female 11/04/2018 8:36 AM SPECIAL EVENTS FUNDRAISER Sexual Orientation Straight 11/04/2018 8: 36 AM SPECIAL EVENTS FUNDRAISER documented as of this encounter Miscellaneous Notes * Telephone Encounter - Mariia Santillan MA - 09/10/2023 10:28 AM CST Neuropsychology referral declined. Due to the overwhelmingly high volume of incoming referrals and a lengthy wait time, our clinic is currently limiting referrals to the [facility] Physicians system. We apologize for the inconvenience. Ref prov notified via fax. Mariia Santillan Hose Operator IAL EVENTS FUNDRAISER documented in this encounter Plan of Treatment Not on file documented as of this encounter Visit Diagnoses Not on filedocumented in this encounter Additional Health Concerns Assessment Noted Time PHQ-9 Depression Total Score: 24 021 12:59 PM CDT documented as of this encounter Care Teams Silk Top Hat Body Maker Relationship Specialty Start Date End Date Heaven Brunson PA-C [facility] [address] [place] [address] PCP - General Physician Surveillance Analyst 05/30/21 documented as of this encounter
--- OUTSIDE RECORDS SUMMARY | 2023-10-19 14:42 | XMS_ITS | Encounter Summary ---
Author Name Unknown Organization [place] Address [address] [place] [address] Care Team Providers Care Neurophysiologist Name Role Phone Andrez Krause PA-C Unavailable [phone] Heaven Brunson PA-C Primary Care Provider Brett Torres MD Unavailable [phone] Karen Galvan PA-C Unavailable [phone] [facility] Unavailable Encounter Details Date Type Department Care Team (Late st Contact Info) Description 07/09/2021 MyC Medical Advice [facility] [address] [facility] [address] [place] [address] Mona Strauss RN Social History Tobacco Use Types Packs/Day Years Used Date Smoking Tobacco: Never Smokeless Tobacco: Never Alcohol Use Standard Drinks/Week Comments Yes 0 (1 standard drink = 0.6 oz pur e alcohol) Social, rare PHQ-2 Answer Date Recorded PHQ-2 Score 6 07/03/2021 Sex and Gender Information Value Date Recorded Sex Assigned at Female 11/04/2018 8:36 AM PERSONAL LINES SALES REP Gender Identity Female 11/04/2018 8:36 AM PERSONAL LINES SALES REP Sexual Orientation Straight 11/04/2018 8: 36 AM PERSONAL LINES SALES REP COVID-19 Exposure Response Date Recorded In the [...] documented as of this encounter Care Teams Neurophysiologist Relationship Specialty Start Date End Date Heaven Brunson PA-C [facility] [address] [place] [address] PCP - General Physician Account Executive 05/30/21 Andrez Krause PA-C [address] [place] [address] Assigned PCP 09/13/15 06/20/22 Brett Torres MD [facility] [address] [facility] [address] [place], [place] [address] Assigned Behavioral Health Provider 07/14/21 01/02/23 Karen Galvan PA-C [address] [facility] [address] [place] [address] Assigned Sleep Provider 09/01/21 Marie Lawrence, [facility] [address] [facility] [address] [place], [place] [address] Assigned MTM Pharmacist 04/05/22 documented as of this encounter
--- OUTSIDE RECORDS SUMMARY | 2023-10-19 14:42 | XMS_ITS | Encounter Summary ---
Author Name Unknown Organization [place] Address [address] [place] [address] Care Team Providers Care Buyer Liaison Name Role Phone JimiAndrez PA-C Unavailable [phone] Mona Tian MD Unavailable [phone] Heaven Brunson PA-C Primary Care Provider Brett Torres MD Unavailable Karen Galvan PA-C Unavailable + [phone] Marie Lawrence [facility] Unavailable [phone] Encounter Details Date Type Department Care Team (Late st Contact Info) Description 06/05/2021 MyC Medical Advice [facility] [address] [facility] [address] [place] [address] Mendel Patricia Social History Tobacco Use Types Packs/Day Years Used Date Smoking Tobacco: Never Smokeless Tobacco: Never Alcohol Use Standard Drinks/Week Comments Yes 0 (1 standard drink = 0.6 oz pur e alcohol) Social, rare PHQ-2 Answer Date Recorded PHQ-2 Total Score (Adult) - Positive if 3 or more points; Administer PHQ-9 if positive 6 06/05/2021 Sex and Gender Information Value Date Recorded Sex Assigned at Female 11/04/2018 8:36 AM HUMAN RESOURCES OFFICE ASSISTANT Gender Identity Female 11/04/2018 8:36 AM HUMAN RESOURCES OFFICE ASSISTANT Sexual Orientation Straight 11/04/2018 8: 36 AM HUMAN RESOURCES OFFICE ASSISTANT documented as of this encounter Plan of Treatment Not on file documented as of this encounter Visit Diagnoses Not on filedocumented in this encounter Additional Health Concerns Assessment Noted Time PHQ-9 Depression Total Score: 22 021 7:02 AM CDT documented as of this encounter Care Teams Buyer Liaison Relationship Specialty Start Date End Date Heaven Brunson PA-C [facility] [address] [place] [address] PCP - General Physician Administrator Social Welfare 05/30/21 Andrez Krause PA-C [address] [facility] [address] Assigned PCP 09/13/15 06/20/22 Mona Tian MD [address] [place] [address] Assigned OBGYN Provider 08/03/20 Brett Torres [facility] [address] [facility] [address] [place], [place] [address] Assigned Behavioral Health Provider 07/14/21 01/02/23 Karen Galvan PA-C [address] [facility] [address] [place], [place] [address] Assigned Sleep Provider 09/01/21 Marie Lawrence, [facility] [address] [facility] [address] [place] [address] Assigned MTM Pharmacist 04/05/22 documented as of this encounter
--- OUTSIDE RECORDS SUMMARY | 2023-10-19 14:42 | XMS_ITS | Encounter Summary ---
Author Name Unknown Organization [place] Address [address] [place] [address] Care Team Providers Care Claims Correspondence Clerk Name Role Phone Andrez Krause PA-C Unavailable [phone] Heaven Brunson PA-C Primary Care Provider Brett Torres MD Unavailable [phone] Karen Galvan PA-C Unavailable [phone] Marie Lawrence [facility] Unavailable [phone] Encounter Details Date Type Department Care Team (Late st Contact Info) Description 08/20/2021 [facility] [address] [address] Molly Hinson, [facility] Social History Tobacco Use Types Packs/Day Years Used Date Smoking Tobacco: Never Smokeless Tobacco: Never Alcohol Use Standard Drinks/Week Comments Yes 0 (1 standard drink = 0.6 oz pur e alcohol) Social, rare PHQ-2 Answer Date Recorded PHQ-2 Score 6 07/03/2021 Sex and Gender Information Value Date Recorded Sex Assigned at Female 11/04/2018 8:36 AM CONE RUNNER Gender Identity Female 11/04/2018 8:36 AM CONE RUNNER Sexual Orientation Straight 11/04/2018 8: 36 AM CONE RUNNER documented as of this encounter Plan of Treatment Not on file documented as of this encounter Visit Diagnoses Not on filedocumented in this encounter Additional Health Concerns Assessment Noted Time PHQ-9 Depression Total Score: 24 021 12:59 PM CDT documented as of this encounter Care Teams Claims Correspondence Clerk Relationship Specialty Start Date End Date Heaven Brunson PA-C [facility] [address] [place] [address] PCP - General Physician Central Office Operator Supervisor 05/30/21 Andrez Krause PA-C [address] [place] [address] Assigned PCP 09/13/15 06/20/22 Brett Torres MD [facility] [address] [facility] [address] [place] [address] Assigned Behavioral Health Provider 07/14/21 01/02/23 Karen Galvan PA-C [address] [facility] [address] [place], [place] [address] Assigned Sleep Provider 09/01/21 Marie Lawrence, [facility] 5775 [facility] 200 [place] [address] Assigned MTM Pharmacist 04/05/22 documented as of this encounter
--- OUTSIDE RECORDS SUMMARY | 2023-10-19 14:42 | XMS_ITS | Encounter Summary ---
Author Name Unknown Organization [facility] Address Formerly [facility] [place] [address] Care Team Providers Care Brass Cleaner Name Role Phone Heaven Brunson PA-C Primary Care Provider Reason for Referral * Mental Health Outpatient (Routine: Next available opening) - Pending Review Specialty Diagnoses / Procedures Referred By Andie t Referred To Contact Neuropsychology Diagnoses Insomnia Binge eating disorder Attention deficit hyperactivity disorder, predominantly inattentive type Stress and adjustment reaction Social phobia Dysthymia Moderate recurrent major depression (H) Bailey Chisholm APRN [facility] [address] [address] Referral ID Status Reason Start Date Expiration Date V isits Requested Visits Authorized [id number] Pending Review 09/10/2023 09/09/2024 1 1 Question Answer Reason for Referral: Other (Be as specific as possible) My Clinical Question Is: Neuropsychological Testing: Moderate/Major recurrent depressive disorder, Dysthymia, Social phobia, Stress and adjustment reaction,ADHD,binge eating disorder,insomnia Scheduling Instructions: [facility] will call you to coordinate your care as prescribed by the provider. If you don? t hear from a account manager sales representative within 2 business days, please call . Comments Referral Transcribed by external fax Provider: Bailey Chisholm affiliated with [facility] at [address] [facility] [address] [place] [address]. VA: No If yes was is the VA Authorization Number: Phone number: [phone] Fax number: [phone] Please be aware that coverage of these services is subject to the terms and limitations of your health insurance plan. Call member services at your health plan with any benefit or coverage questions. [facility] will call you to coordinate your care as prescribed by the provider. If you don? t hear from a account manager sales representative within 2 business days, please call . ME TAX EXPERT Encounter Details Date Type Department Care Team (Latest Contact Info) Description 09/10/2023 Transcribe Orders GENERIC EXTERNAL DATA DEPARTMENT Provider, Generic External Data Insomnia (Primary Dx); Binge eating disorder; Attention deficit hyperactivity disorder, predominantly inattentive type; Stress and adjustment reaction; Social phobia; Dysthymia; Moderate recurrent major depression (H) Social History Tobacco Use Types Packs/Day Years [...] Sex Assigned at Female 11/04/2018 8:36 AM INCOME TAX EXPERT Gender Identity Female 11/04/2018 8:36 AM INCOME TAX EXPERT Sexual Orientation Straight 11/04/2018 8: 36 AM INCOME TAX EXPERT documented as of this encounter Plan of Treatment Scheduled Referrals Name Type Priority Associated Diagnoses Orde r Schedule Adult Neuropsychology Rv Technician Referral Referral Routine: Next available opening Insomnia Binge eating disorder Attention deficit hyperactivity disorder, predominantly inattentive type Stress and adjustment reaction Social phobia Dysthymia Moderate recurrent major depression (H) Ordered: 09/10/2023 documented as of this encounter Visit Diagnoses Diagnosis Insomnia- Primary Insomnia, unspecified Binge eating disorder Attention deficit hyperactivity disorder, predominantly inattentive type Stress and adjustment reaction Social phobia Dysthymia Dysthymic disorder Moderate recurrent major depression (H) Major depressive disorder, recurrent episode, moderate documented in this encounter Additional Health Concerns Assessment Noted Time PHQ-9 Depression Total Score: 24 021 12:59 PM CDT documented as of this encounter Care Teams Brass Cleaner Relationship Specialty Start Date End Date Heaven Brunson PA-C [facility] [address], [place] [address] PCP - General Physician Pet Handler 05/30/21 documented as of this encounter
--- OUTSIDE RECORDS SUMMARY | 2023-10-19 14:42 | XMS_ITS | Encounter Summary ---
Author Name Unknown Organization [facility] Address [address] [place] [address] Care Team Providers Care Plumbing Drafter Name Role Phone Andrez Krause PA-C Unavailable [phone] Mona Tian MD Unavailable [phone] Heaven Brunson PA-C Primary Care Provider Brett Torres MD Unavailable [phone] Karen Galvan PA-C Unavailable [phone] Marie Lawrence [facility] Unavailable [phone] Encounter Details Date Type Department Care Team (Latest Contact Info) Description 06/28/2021 Historic Results Social History Tobacco Use Types Packs/Day Years Used Date Smoking Tobacco: Never Smokeless Tobacco: Never Alcohol Use Standard Drinks/Week Comments Yes 0 (1 standard drink = 0.6 oz pur e alcohol) Social, rare PHQ-2 Answer Date Recorded PHQ-2 Score 6 06/28/2021 Sex and Gender Information Value Date Recorded Sex Assigned at Female 11/04/2018 8:36 AM GAME MODERATOR Gender Identity Female 11/04/2018 8:36 AM GAME MODERATOR Sexual Orientation Straight 11/04/2018 8: 36 AM GAME MODERATOR documented as of this encounter Plan of Treatment Not on file documented as of this encounter Visit Diagnoses Not on filedocumented in this encounter Additional Health Concerns Assessment Noted Time PHQ-9 Depression Total Score: 23 021 9:44 AM CDT documented as of this encounter Care Teams Plumbing Drafter Relationship Specialty Start Date End Date Heaven Brunson PA-C [facility] [address] [place] [address] PCP - General Physician Shirt Maker 05/30/21 Andrez Krause PA-C [address] [facility] [address] Assigned PCP 09/13/15 06/20/22 Mona Tian MD [address] [facility] [place] [address] Assigned OBGYN Provider 08/03/20 Brett Torres [facility] 264[address] [facility] [address] [place], [place] [address] Assigned Behavioral Health Provider 07/14/21 01/02/23 Karen Galvan PA-C [address] [facility] [address] [place], [place] [address] Assigned Sleep Provider 09/01/21 Marie Lawrence, [facility] [address] [facility] [address] [place], [place] [id number] Assigned MTM Pharmacist 04/05/22 documented as of this encounter
--- OUTSIDE RECORDS SUMMARY | 2023-10-19 14:42 | XMS_ITS | Encounter Summary ---
Author Name Unknown Organization [facility] Address [address] [place] [address]. [place] [address] Care Team Providers Care Oil Burner Installer Name Role Phone Heaven Brunson PA-C Primary Care Provider Encounter Details Date Type Department Care Team (Late st Contact Info) Description 09/09/2023 Medical Correspondence [facility] [place] [address] Outside, Provider Social History Tobacco Use Types Packs/Day Years [...] Sex Assigned at Female 11/04/2018 8:36 AM BLOW PIT OPERATOR Gender Identity Female 11/04/2018 8:36 AM BLOW PIT OPERATOR Sexual Orientation Straight 11/04/2018 8: 36 AM BLOW PIT OPERATOR documented as of this encounter Plan of Treatment Not on file documented as of this encounter Visit Diagnoses Not on filedocumented in this encounter Additional Health Concerns Assessment Noted Time PHQ-9 Depression Total Score: 24 021 12:59 PM CDT documented as of this encounter Care Teams Oil Burner Installer Relationship Specialty Start Date End Date Heaven Brunson PA-C [facility] [address] [place] [address] PCP - General Physician Retail Sales Clerk 05/30/21 documented as of this encounter
--- OUTSIDE RECORDS SUMMARY | 2023-10-19 14:42 | XMS_ITS | Encounter Summary ---
Author Name Unknown Organization [facility] Address [address] [place] [address] Care Team Providers Care Hr Internship Name Role Phone Andrez Krause PA-C Unavailable [phone] Heaven Brunson PA-C Primary Care Provider Brett Torres MD Unavailable [phone] Karen Galvan PA-C Unavailable [phone] Marie Lawrence [facility] Unavailable Encounter Details Date Type Department Care Team (Late st Contact Info) Description 12/04/2021 [facility] Medical [facility] [address] [facility] [address] [place] [address] Mona Strauss RN Social History Tobacco Use Types Packs/Day Years Used Date Smoking Tobacco: Never Smokeless Tobacco: Never Alcohol Use Standard Drinks/Week Comments Yes 0 (1 standard drink = 0.6 oz pur e alcohol) Social, rare PHQ-2 Answer Date Recorded PHQ-2 Score 6 07/03/2021 Sex and Gender Information Value Date Recorded Sex Assigned at Female 11/04/2018 8:36 AM FLEET SERVICE MANAGER Gender Identity Female 11/04/2018 8:36 AM FLEET SERVICE MANAGER Sexual Orientation Straight 11/04/2018 8: 36 AM FLEET SERVICE MANAGER documented as of this encounter Plan of Treatment Not on file documented as of this encounter Visit Diagnoses Not on filedocumented in this encounter Additional Health Concerns Assessment Noted Time PHQ-9 Depression Total Score: 24 021 12:59 PM CDT documented as of this encounter Care Teams Hr Internship Relationship Specialty Start Date End Date Heaven Brunson PA-C [facility] [address] [place] [address] PCP - General Physician Net Making Supervisor 05/30/21 Andrez Krause PA-C [address] [place] [address] Assigned PCP 09/13/15 06/20/22 Brett Torres MD [facility] 16669 [facility] [address] [place], [place] [address] Assigned Behavioral Health Provider 07/14/21 01/02/23 Karen Galvan PA-C [address] [facility] [address] [place] [address] Assigned Sleep Provider 09/01/21 Marie Lawrence, [facility] [address] [facility] 200 [place], [place] [address] Assigned MTM Pharmacist 04/05/22 documented as of this encounter
--- OUTSIDE RECORDS SUMMARY | 2023-10-19 14:42 | XMS_ITS | Encounter Summary ---
Author Name Unknown Organization [facility] Address [address] [place] [address] Care Team Providers Care Accountant Budget Name Role Phone KrauseAndrez PA-C Unavailable [phone] Heaven Brunson PA-C Primary Care Provider Brett Torres MD Unavailable [phone] Karen Galvan PA-C Unavailable [phone] Marie Lawrence [facility] Unavailable [phone] Encounter Details Date Type Department Care Team (Late st Contact Info) Description 07/25/2021 Telephone [facility] [place] [id number] [address] Brett Torres MD [facility] [address] [place] [address] [address] [place] [address] Social History Tobacco Use Types Packs/Day Years Used Date Smoking Tobacco: Never Smokeless Tobacco: Never Alcohol Use Standard Drinks/Week Comments Yes 0 (1 standard drink = 0.6 oz pur e alcohol) Social, rare PHQ-2 Answer Date Recorded PHQ-2 Score 6 07/03/2021 Sex and Gender Information Value Date Recorded Sex Assigned at Female 11/04/2018 8:36 AM BABY FORMULA MIXER Gender Identity Female 11/04/2018 8:36 AM BABY FORMULA MIXER Sexual Orientation Straight 11/04/2018 8: 36 AM BABY FORMULA MIXER COVID-19 Exposure Response Date Recorded In the [...] documented as of this encounter Care Teams Accountant Budget Relationship Specialty Start Date End Date Heaven Brunson PA-C [facility] [address] [place] [address] PCP - General Physician Engineering Supervisor 05/30/21 Andrez Krause PA-C [address] [place] [address] Assigned PCP 09/13/15 06/20/22 Brett Torres MD [facility] [address] [facility] [address] [place], [place] [address] Assigned Behavioral Health Provider 07/14/21 01/02/23 Karen Galvan PA-C [address] [facility] [address] [place] [address] Assigned Sleep Provider 09/01/21 Marie Lawrence, [facility] [address] [facility] 200 [place], [place] [address] Assigned MTM Pharmacist 04/05/22 documented as of this encounter
--- OUTSIDE RECORDS SUMMARY | 2023-10-19 14:42 | XMS_ITS | Encounter Summary ---
Author Name Unknown Organization [facility] Address [address] [place] [address] Care Team Providers Care Admissions Coordinator Name Role Phone Andrez Krause PA-C Primary Care Provider Andrez Krause PA-C Unavailable [phone] Mona Tian MD Unavailable [phone] Heaven Brunson PA-C Primary Care Provider Brett Torres MD Unavailable [phone] Karen Galavn PA-C Unavailable [phone] Marie Lawrence [facility] Unavailable Encounter Details Date Type Department Care Team (Late st Contact Info) Description 02/26/2021 Documentation Only INTERFACED REPORT Unknown, Provider Social History Tobacco Use Types Packs/Day Years Used Date Smoking Tobacco: Never Smokeless Tobacco: Never Alcohol Use Standard Drinks/Week Comments Yes 0 (1 standard drink = 0.6 oz pur e alcohol) Social, rare PHQ-2 Answer Date Recorded PHQ-2 Score 3 02/17/2019 Sex and Gender Information Value Date Recorded Sex Assigned at Female 11/04/2018 8:36 AM CUSTOM FEED CORN OPERATOR Gender Identity Female 11/04/2018 8:36 AM CUSTOM FEED CORN OPERATOR Sexual Orientation Straight 11/04/2018 8: 36 AM CUSTOM FEED CORN OPERATOR documented as of this encounter Plan of Treatment Not on file documented as of this encounter Visit Diagnoses Not on filedocumented in this encounter Additional Health Concerns Assessment Noted Time PHQ-9 Depression Total Score: 23 05/05/2 019 9:13 AM CDT documented as of this encounter Care Teams Admissions Coordinator Relationship Specialty Start Date End Date Andrez Krause PA-C PCP - General Physician Lead Business Analyst - Medical 10/09/15 05/29/21 Heaven Brunson PA-C [facility] [address] [place] [address] PCP - General Physician Lead Business Analyst 05/30/21 Andrez Krause PA-C [address] [facility] [address] Assigned PCP 09/13/15 06/20/22 Mona Tian MD [address] [place], [place] [address] Assigned OBGYN Provider 08/03/20 Brett Torres [facility] [address] [facility] [address] [place], [place] [address] Assigned Behavioral Health Provider 07/14/21 01/02/23 Karen Galvan PA-C [address] [facility] 103 [place], [place] [address] Assigned Sleep Provider 09/01/21 Marie Lawrence, [facility] 5775 [facility] 200 [place] [address] Assigned MTM Pharmacist 04/05/22 documented as of this encounter
--- OUTSIDE RECORDS SUMMARY | 2023-10-19 14:43 | XMS_ITS | Encounter Summary ---
Author Name Unknown Organization [facility] Address [address] [place] [address] Care Team Providers Care Director Of Cardiac Rehabilitation Name Role Phone Andrez Krause PA-C Primary Care Provider Andrez Krause PA-C Unavailable [phone] Andrez Krause PA-C Unavailable [phone] Mona Tian MD Unavailable [phone] Heaven Brunson PA-C Primary Care Provider Brett Torres MD Unavailable [phone] Karen Galvan PA-C Unavailable [phone] Marie Lawrence [facility] Unavailable [phone] Reason for Visit * Reason Onset Date Comments Refill Request 04/29/2018 Encounter Details Date Type Department Care Team (Late st Contact Info) Description 04/29/2018 MyC Refill [facility] [address] [place] [phone] Rhonda Middleton PA-C [address] [place] [address] Refill Request Social History Tobacco Use Types Packs/Day Years Used Date Smoking Tobacco: Never Smokeless Tobacco: Never Alcohol Use Standard Drinks/Week Comments Yes 0 (1 standard drink = 0.6 oz pur e alcohol) Social, rare Sex and Gender Information Value Date Recorded Sex Assigned at Female 11/04/2018 8:36 AM GARDEN TRACTOR MECHANIC Gender Identity Female 11/04/2018 8:36 AM GARDEN TRACTOR MECHANIC Sexual Orientation Straight 11/04/2018 8: 36 AM GARDEN TRACTOR MECHANIC documented as of this encounter Miscellaneous Notes * Telephone Encounter - Sweta Danielle RN - 04/29/2018 8:52 AM CDT Called the Pt to discuss refill. LM, waiting callback. Pt is a FM Pt with AP. Medication was issuedby [facility] provider. Pt needs to follow up with PCP to discuss refills. Please help her schedule when she calls back. Thanks. Sweta Danielle RN -- [facility] * Telephone Encounter - Sweta Danielle RN - 04/29/2018 8:49 AM CDT[facility] Original authorizing provider: LUIS ANTONIO Mendoza would like a refill of the following medications: erenumab-aooe (AIMOVIG) 70 MG/ML injection [Rhonda Middleton PA-C] Preferred pharmacy: [id number] [address] [address] Comment: documented in this encounter Plan of Treatment Not on file documented as of this encounter Visit Diagnoses Diagnosis Migraine without aura and without status migrainosus, not intractable Migraine without aura, without mention of intractable migraine without mention of status migrainosus documented in this encounter Additional Health Concerns Assessment Noted Time PHQ-9 Depression Total Score: 23 04/10/ 018 7:00 AM CDT documented as of this encounter Care Teams Director Of Cardiac Rehabilitation Relationship Specialty Start Date End Date Andrez Krause PA-C PCP - General Physician Photo Studio Assistant - Medical 10/09/15 05/29/21 Andrez Krause PA-C [address] [facility] [address] PCP - Assigned PCP 09/13/15 12/14/18 Heaven Brunson PA-C [facility] [address] [place] [address] PCP - General Physician Photo Studio Assistant 05/30/21 Andrez Krause PA-C [address] [place] [address] Assigned PCP 09/13/15 06/20/22 Mona Tian MD [address] [place] [address] Assigned OBGYN Provider 08/03/20 Brett Torres [facility] [address] [facility] 255 [place], [place] [address] Assigned Behavioral Health Provider 07/14/21 01/02/23 Karen Galvan PA-C [address] [facility] 103 [place], [place] [address] Assigned Sleep Provider 09/01/21 Marie Lawrence, [facility] 57[address] [facility] 200 [place] [address] Assigned MTM Pharmacist 04/05/22 documented as of this encounter
--- OUTSIDE RECORDS SUMMARY | 2023-10-19 14:43 | XMS_ITS | Encounter Summary ---
Author Name Unknown Organization [facility] Address [address] [place] [address] Care Team Providers Care Dramatic Director Name Role Phone Andrez Krause PA-C Primary Care Provider Andrez Krause PA-C Unavailable + [phone] Andrez Krause PA-C Unavailable + [phone] Mona Tian MD Unavailable [phone] Heaven Brunson PA-C Primary Care Provider Brett Torres MD Unavailable [phone] Karen Galvan PA-C Unavailable [phone] Marie Lawrence [facility] Unavailable [phone] Reason for Visit * Reason Onset Date Comments Medication Request 12/07/2018 Atomoxetine 6 0mg Encounter Details Date Type Department Care Team (Late st Contact Info) Description 12/07/2018 [facility] Medical Advice [address], [address] [place] [address] Andrez Krause PA-C [address] [place] [address] Medication Request (Atomoxetine 60mg) Social History Tobacco Use Types Packs/Day Years Used Date Smoking Tobacco: Never Smokeless Tobacco: Never Alcohol Use Standard Drinks/Week Comments Yes 0 (1 standard drink = 0.6 oz pur e alcohol) Social, rare PHQ-2 Answer Date Recorded PHQ-2 Score 6 10/19/2018 Sex and Gender Information Value Date Recorded Sex Assigned at Female 11/04/2018 8:36 AM SHIP WIRER Gender Identity Female 11/04/2018 8:36 AM SHIP WIRER Sexual Orientation Straight 11/04/2018 8: 36 AM SHIP WIRER documented as of this encounter Miscellaneous Notes * Telephone Encounter - Andrez Krause PA-C - 12/09/2018 8:35 AM SHIP WIRER Of course just getting to this now. Likely would not have had time to do a PA anyway? I can send the refill and see what happens. Andrez WIRER * Telephone Encounter - Nalini Conte RN - 12/07/2018 3:32 PM CST Images from the original note were not included. 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 documented in this encounter Additional Health Concerns Assessment Noted Time PHQ-9 Depression Total Score: 21 019 5:05 PM SHIP WIRER documented as of this encounter Care Teams Dramatic Director Relationship Specialty Start Date End Date Andrez Krause PA-C PCP - General Physician Back End Architect - Medical 10/09/15 05/29/21 Andrez Krause PA-C [address] [place] [address] PCP - Assigned PCP 09/13/15 12/14/18 Heaven Brunson PA-C [facility] [address] [place] [address] PCP - General Physician Back End Architect 05/30/21 Andrez Krause PA-C [address] [place] [address] Assigned PCP 09/13/15 06/20/22 Mona Tian MD [address] [place], [place] [address] Assigned OBGYN Provider 08/03/20 Brett Torres [facility] [address] [facility] 255 [place], [place] [address] Assigned Behavioral Health Provider 07/14/21 01/02/23 Karen Galvan PA-C [address] [facility] 103 [place], [place] [address] Assigned Sleep Provider 09/01/21 Marie Lawrence, [facility] 57[address] [facility] 200 [place], [place] [id number] Assigned MTM Pharmacist 04/05/22 documented as of this encounter
--- OUTSIDE RECORDS SUMMARY | 2023-10-19 14:43 | XMS_ITS | Encounter Summary ---
Author Name Unknown Organization [facility] Address [address] [place] [address] Care Team Providers Care Transportation Attendant Name Role Phone Andrez Krause PA-C Primary Care Provider Andrez Krause PA-C Unavailable [phone] Mona Tian MD Unavailable [phone] Heaven Brunson PA-C Primary Care Provider Brett Torres MD Unavailable [phone] Karen Galvan PA-C Unavailable [phone] Marie Lawrence [facility] Unavailable [phone] Reason for Visit * Reason Onset Date Comments Medication Question 07/02/2020 Encounter Details Date Type Department Care Team (Late st Contact Info) Description 07/02/2020 [facility] Medical Advice [address] [address] Mona Tian MD [facility] [place] [address] Medication Question Social History Tobacco Use Types Packs/Day Years Used Date Smoking Tobacco: Never Smokeless Tobacco: Never Alcohol Use Standard Drinks/Week Comments Yes 0 (1 standard drink = 0.6 oz pur e alcohol) Social, rare PHQ-2 Answer Date Recorded PHQ-2 Score 3 02/17/2019 Sex and Gender Information Value Date Recorded Sex Assigned at Female 11/04/2018 8:36 AM OIL HEAT TECHNICIAN Gender Identity Female 11/04/2018 8:36 AM OIL HEAT TECHNICIAN Sexual Orientation Straight 11/04/2018 8: 36 AM OIL HEAT TECHNICIAN documented as of this encounter Miscellaneous Notes * Telephone Encounter - Mona Tian MD - 07/05/2020 2:59 PM CDT I can send any med, but I won't be able to tell if it's covered. I will try again. If it's not covered, she should ask her insurance for a list or look online for the formulary. Mona Tian MD * Telephone Encounter - Deb Crockett RN - 07/04/2020 4:07 PM CDT Pt messaging that her insurance doesn't cover the Rx that was sent. Is there an alternative that you can try? Deb Crockett RN * Telephone Encounter - Mona Tian MD - 07/03/2020 2:45 PM CDT Sent. Mona Tian MD * Telephone Encounter - Tammie Mckoy RN - 07/03/2020 1:43 PM CDT She is interested in the lower estrogen pill. Tammie Pryor R.N. * Telephone Encounter - Mona Tian MD - 07/03/2020 1:22 PM CDT We could switch her to an even lower estrogen pill if she would like. She could take this continuously by skipping the last 4 tablets in the pack, and instead starting a new pack. She can either do this all the time, or schedule a pill free break every 3-4 months to have a period and (maybe) decrease the chances of spotting. If she's interested, let me know. I can't promise this will be less expensive than the Sheyla, since I don't know about her insurance. But it is the lowest estrogen dose, so at the very least has a lower chance of affecting her headaches. The other option is to stop the pill and do something like Nexplanon, depo, or an IUD. Mona Tian MD * Telephone Encounter - Debbie Lindsay RN - 07/03/2020 9:59 AM CDT My chart message sent to the pt. Debbie Christie RN * Telephone Encounter - Mona Tian MD - 07/03/2020 9:46 AM CDT 1. Please make sure her migraines are not migraine with aura. If they are with auras, she should not be on her control pill (I recall that this is without aura, and I also assume her neurologist knows she is on this--please confirm both.) 2. She certainly could, if the oral contraceptive pills are still safe due to no aura, take them continuously to skip a period entirely, which is what I would recommend for her. I'm sorry she is having such a difficult time, but maybe this will remove at least one thing that'scausing worsening headaches for her. Mona Tian MD * Telephone Encounter - Florina Rm RN - 07/02/2020 12:12 PM CDT Please see my chart message and advise. Florina Rm RN documented in this encounter Plan of Treatment Not on file documented as of this encounter Visit Diagnoses Diagnosis General counseling for prescription of oral contraceptives- Primary documented in this encounter Additional Health Concerns Assessment Noted Time PHQ-9 Depression Total Score: 23 07/25/2 019 9:13 AM CDT documented as of this encounter Care Teams Transportation Attendant Relationship Specialty Start Date End Date Andrez Krause PA-C PCP - General Physician Replenishment Analyst - Medical 10/09/15 05/29/21 Heaven Brunson PA-C [facility] [address] [place] [address] PCP - General Physician Replenishment Analyst 05/30/21 Andrez Krause PA-C [address] [place] [address] Assigned PCP 09/13/15 06/20/22 Mona Tian MD [address] [place] [address] Assigned OBGYN Provider 08/03/20 Brett Torres [facility] [address] [facility] 255 [place] [address] Assigned Behavioral Health Provider 07/14/21 01/02/23 Karen Galvan PA-C 6363 [facility] 103 [place], [place] [address] Assigned Sleep Provider 09/01/21 Marie Lawrence, [facility] [address] [facility] 200 [place], [place] [address] Assigned MTM Pharmacist 04/05/22 documented as of this encounter
--- OUTSIDE RECORDS SUMMARY | 2023-10-19 14:43 | XMS_ITS | Encounter Summary ---
Author Name Unknown Organization [facility] Address [address] [place] [address] Care Team Providers Care Infrastructure Developer Name Role Phone Andrez Krause PA-C Primary Care Provider Andrez Krause PA-C Unavailable + [phone] Andrez Krause PA-C Unavailable [phone] Mona Tian MD Unavailable [phone] Heaven Brunson PA-C Primary Care Provider Brett Torres MD Unavailable [phone] Karen Galvan PA-C Unavailable + [phone] Marie Lawrence [facility] Unavailable [phone] Reason for Visit * Reason Onset Date Comments Refill Request 11/02/2018 erenumab-aooe (A IMOVIG) 70 MG/ML injection Encounter Details Date Type Department Care Team (Late st Contact Info) Description 11/02/2018 MyC Refill [address], [address] [place] [address] Andrez Krause PA-C [address] [place] [address] Refill Request (erenumab-aooe (AIMOVIG) 70... Social History Tobacco Use Types Packs/Day Years Used Date Smoking Tobacco: Never Smokeless Tobacco: Never Alcohol Use Standard Drinks/Week Comments Yes 0 (1 standard drink = 0.6 oz pur e alcohol) Social, rare PHQ-2 Answer Date Recorded PHQ-2 Score 6 10/19/2018 Sex and Gender Information Value Date Recorded Sex Assigned at Female 11/04/2018 8:36 AM REEL FILM INSPECTOR Gender Identity Female 11/04/2018 8:36 AM REEL FILM INSPECTOR Sexual Orientation Straight 11/04/2018 8: 36 AM REEL FILM INSPECTOR documented as of this encounter Miscellaneous Notes * Telephone Encounter - Geraldine Chavarria RN - 11/02/2018 5:24 PM CST Routing refill request to provider for review/approval because: Drug not on the [facility] refill protocol Geraldine Chavarria RN, BS Clinical Nurse Triage. FILM INSPECTOR * Telephone Encounter - Denia Reddy - 11/02/2018 10:24 AM CST Images from the original note were not included. Requested Prescriptions Pending Prescriptions Disp Refills ??? erenumab-aooe (AIMOVIG) 70 MG/ML injection 1 mL 2 Sig: Inject 1 mL (70 mg) Subcutaneous every 30 days There is no refill protocol information for this order Last Written Prescription Date: 05/06/18 Last Fill Quantity: 1mL , # refills: 2 Last Office Visit: 07/27/2018 Jimi Return in about 6 months (around 01/25/2019) for Med Check. Future Office Visit: FILM INSPECTOR documented in this encounter Plan of Treatment Not on file documented as of this encounter Visit Diagnoses Diagnosis Migraine without aura and without status migrainosus, not intractable Migraine without aura, without mention of intractable migraine without mention of status migrainosus documented in this encounter Additional Health Concerns Assessment Noted Time PHQ-9 Depression Total Score: 21 018 7:07 AM CDT documented as of this encounter Care Teams Infrastructure Developer Relationship Specialty Start Date End Date Andrez Krause PA-C PCP - General Physician Content Coordinator - Medical 10/09/15 05/29/21 Andrez Krause PA-C [address] [place] [address] PCP - Assigned PCP 09/13/15 12/14/18 Heaven Brunson PA-C [facility] [address] [place] [address] PCP - General Physician Content Coordinator 05/30/21 Andrez Krause PA-C [address] [place] [address] Assigned PCP 09/13/15 06/20/22 Mona Tian MD [address] [place] [place], [place] [address] Assigned OBGYN Provider 08/03/20 Brett Torres [facility] [address] [facility] [address] [place], [place] [address] Assigned Behavioral Health Provider 07/14/21 01/02/23 Karen Galvan PA-C [address] [facility] [address] [place], [place] [address] Assigned Sleep Provider 09/01/21 Marie Lawrence, [facility] 5775 [facility] 200 [place] [address] Assigned MTM Pharmacist 04/05/22 documented as of this encounter
--- OUTSIDE RECORDS SUMMARY | 2023-10-19 14:43 | XMS_ITS | Encounter Summary ---
Author Name Unknown Organization [facility] Address [address] [place] [address]. [place] [address] Care Team Providers Care Drop Pit Worker Name Role Phone Andrez Krause PA-C Primary Care Provider Andrez Krause PA-C Unavailable [phone] Mona Tian MD Unavailable [phone] Heaven Brunson PA-C Primary Care Provider Brett Torres MD Unavailable [phone] Karen Galvan PA-C Unavailable [phone] Marie Lawrence [facility] Unavailable [phone] Encounter Details Date Type Department Care Team (Late st Contact Info) Description 05/22/2019 MyC Medical Advice [address], [address] [place] [address] Andrez Krause PA-C [address] [place] [address] Social History Tobacco Use Types Packs/Day Years Used Date Smoking Tobacco: Never Smokeless Tobacco: Never Alcohol Use Standard Drinks/Week Comments Yes 0 (1 standard drink = 0.6 oz pur e alcohol) Social, rare PHQ-2 Answer Date Recorded PHQ-2 Score 3 02/17/2019 Sex and Gender Information Value Date Recorded Sex Assigned at Female 11/04/2018 8:36 AM CERT OCCUPATIONAL THERAPY ASST Gender Identity Female 11/04/2018 8:36 AM CERT OCCUPATIONAL THERAPY ASST Sexual Orientation Straight 11/04/2018 8: 36 AM CERT OCCUPATIONAL THERAPY ASST documented as of this encounter Plan of Treatment Not on file documented as of this encounter Visit Diagnoses Not on filedocumented in this encounter Additional Health Concerns Assessment Noted Time PHQ-9 Depression Total Score: 23 019 9:13 AM CDT documented as of this encounter Care Teams Drop Pit Worker Relationship Specialty Start Date End Date Andrez Krause PA-C PCP - General Physician Permastone Mechanic - Medical 10/09/15 05/29/21 Heaven Brunson PA-C [facility] [address] [place] [address] PCP - General Physician Permastone Mechanic 05/30/21 Andrez Krause PA-C [address] [place] [address] Assigned PCP 09/13/15 06/20/22 Mona Tian MD [address] [place], [place] [address] Assigned OBGYN Provider 08/03/20 Brett Torres [facility] 28590 [facility] [address] [place], [place] [id number] Assigned Behavioral Health Provider 07/14/21 01/02/23 Karen Galvan PA-C 6363 [facility] 103 [place], [place] [address] Assigned Sleep Provider 09/01/21 Marie Lawrence [facility] 5775 [facility] 200 [place] [address] Assigned MTM Pharmacist 04/05/22 documented as of this encounter
--- OUTSIDE RECORDS SUMMARY | 2023-10-19 14:43 | XMS_ITS | Encounter Summary ---
Author Name Unknown Organization [facility] Address [address] [place] [address]. [place] [address] Care Team Providers Care Photographer Still Name Role Phone Andrez Krause PA-C Primary Care Provider Andrez Krause PA-C Unavailable [phone] Mona Tian MD Unavailable [phone] Heaven Brunson PA-C Primary Care Provider Brett Torres MD Unavailable [phone] Karen Galvan PA-C Unavailable [phone] Marie Lawrence [facility] Unavailable [phone] Encounter Details Date Type Department Care Team (Late st Contact Info) Description 01/23/2019 MyC Medical Advice [address], [address] [place] [address] Andrez Krause PA-C [address] [place] [address] Social History Tobacco Use Types Packs/Day Years Used Date Smoking Tobacco: Never Smokeless Tobacco: Never Alcohol Use Standard Drinks/Week Comments Yes 0 (1 standard drink = 0.6 oz pur e alcohol) Social, rare PHQ-2 Answer Date Recorded PHQ-2 Score 6 10/19/2018 Sex and Gender Information Value Date Recorded Sex Assigned at Female 11/04/2018 8:36 AM RECOVERY ADVOCATE Gender Identity Female 11/04/2018 8:36 AM RECOVERY ADVOCATE Sexual Orientation Straight 11/04/2018 8: 36 AM RECOVERY ADVOCATE documented as of this encounter Plan of Treatment Not on file documented as of this encounter Visit Diagnoses Not on filedocumented in this encounter Additional Health Concerns Assessment Noted Time PHQ-9 Depression Total Score: 019 5:05 PM RECOVERY ADVOCATE documented as of this encounter Care Teams Photographer Still Relationship Specialty Start Date End Date Andrez Krause PA-C PCP - General Physician Inventory Coordinator - Medical 10/09/15 05/29/21 Heaven Brunson PA-C [facility] [address] [place] [address] PCP - General Physician Inventory Coordinator 05/30/21 Andrez Krause PA-C [address] [place] [address] Assigned PCP 09/13/15 06/20/22 Mona Tian MD [address] [place], [place] [address] Assigned OBGYN Provider 08/03/20 Brett Torres [facility] [address] [facility] 255 [place], [place] [address] Assigned Behavioral Health Provider 07/14/21 01/02/23 Karen Galvan PA-C 6363 [facility] 103 [place], [place] [address] Assigned Sleep Provider 09/01/21 Marie Lawrence [facility] 5775 [facility] 200 [place], [place] [id number] Assigned MTM Pharmacist 04/05/22 documented as of this encounter
--- OUTSIDE RECORDS SUMMARY | 2023-10-19 14:43 | XMS_ITS | Encounter Summary ---
Author Name Unknown Organization [place] Address [address] [place] [address] Care Team Providers Care Cattle Knocker Name Role Phone Andrez Krause PA-C Primary Care Provider Andrez Krause PA-C Unavailable [phone] Mona Tian MD Unavailable [phone] Heaven Brunson PA-C Primary Care Provider Brett Torres MD Unavailable [phone] Karen Galvan PA-C Unavailable [phone] Marie Lawrence [facility] Unavailable [phone] Encounter Details Date Type Department Care Team (Late st Contact Info) Description 04/01/2019 MyC Medical Advice [facility] [address] [place] [address] Tadeo Wilks MD 303 [facility] [address] [place] [address] Social History Tobacco Use Types Packs/Day Years Used Date Smoking Tobacco: Never Smokeless Tobacco: Never Alcohol Use Standard Drinks/Week Comments Yes 0 (1 standard drink = 0.6 oz pur e alcohol) Social, rare PHQ-2 Answer Date Recorded PHQ-2 Score 3 02/17/2019 Sex and Gender Information Value Date Recorded Sex Assigned at Female 11/04/2018 8:36 AM ELECTRONIC PAGE MAKEUP SYSTEM OPERATOR Gender Identity Female 11/04/2018 8:36 AM ELECTRONIC PAGE MAKEUP SYSTEM OPERATOR Sexual Orientation Straight 11/04/2018 8: 36 AM ELECTRONIC PAGE MAKEUP SYSTEM OPERATOR documented as of this encounter Plan of Treatment Not on file documented as of this encounter Visit Diagnoses Not on filedocumented in this encounter Additional Health Concerns Assessment Noted Time PHQ-9 Depression Total Score: 17 019 8:25 AM CDT documented as of this encounter Care Teams Cattle Knocker Relationship Specialty Start Date End Date Andrez Krause PA-C PCP - General Physician Spike Machine Operator - Medical 10/09/15 05/29/21 Heaven Brunson PA-C [facility] [address] [place] [address] PCP - General Physician Spike Machine Operator 05/30/21 Andrez Krause PA-C [address] [place] [address] Assigned PCP 09/13/15 06/20/22 Mona Tian MD [address] [place] [place], [place] [address] Assigned OBGYN Provider 08/03/20 Brett Torres [facility] 877[address] [facility] 255 [place], [place] [address] Assigned Behavioral Health Provider 07/14/21 01/02/23 Karen Galvan PA-C 6363 [facility] 103 [place], [place] [address] Assigned Sleep Provider 09/01/21 Marie Lawrence [facility] 5775 [facility] [address] [place] [address] Assigned MTM Pharmacist 04/05/22 documented as of this encounter
--- OUTSIDE RECORDS SUMMARY | 2023-10-19 14:43 | XMS_ITS | Encounter Summary ---
Author Name Unknown Organization [facility] Address [address] [place] [address] Care Team Providers Care Hoeing Row Boss Name Role Phone Andrez Krause PA-C Primary Care Provider Andrez Krause PA-C Unavailable [phone] Andrez Krasue PA-C Unavailable [phone] Mona Tian MD Unavailable [phone] Heaven Brunson PA-C Primary Care Provider Brett Torres MD Unavailable [phone] Karen Galvan PA-C Unavailable [phone] Marie Lawrence [facility] Unavailable [phone] Encounter Details Date Type Department Care Team (Late st Contact Info) Description 12/11/2018 MyC Medical Advice [facility] [address] [place] [address] Josefina Diop, CROOK OPERATOR RESIDENTIAL LEASING MANAGER Social History Tobacco Use Types Packs/Day Years Used Date Smoking Tobacco: Never Smokeless Tobacco: Never Alcohol Use Standard Drinks/Week Comments Yes 0 (1 standard drink = 0.6 oz pur e alcohol) Social, rare PHQ-2 Answer Date Recorded PHQ-2 Score 6 10/19/2018 Sex and Gender Information Value Date Recorded Sex Assigned at Female 11/04/2018 8:36 AM CHINA AND SILVERWARE SALESPERSON Gender Identity Female 11/04/2018 8:36 AM CHINA AND SILVERWARE SALESPERSON Sexual Orientation Straight 11/04/2018 8: 36 AM CHINA AND SILVERWARE SALESPERSON documented as of this encounter Plan of Treatment Not on file documented as of this encounter Visit Diagnoses Not on filedocumented in this encounter Additional Health Concerns Assessment Noted Time PHQ-9 Depression Total Score: 21 019 5:05 PM CHINA AND SILVERWARE SALESPERSON documented as of this encounter Care Teams Hoeing Row Boss Relationship Specialty Start Date End Date Andrez Krause PA-C PCP - General Physician Automatic Pinsetter Adjuster - Medical 10/09/15 05/29/21 Andrez Krause [place] [address] [place] [address] PCP - Assigned PCP 09/13/15 12/14/18 Heaven Brunson PA-C [facility] [address] [place] [address] PCP - General Physician Automatic Pinsetter Adjuster 05/30/21 Andrez Krause [place] [address] [place] [address] Assigned PCP 09/13/15 06/20/22 Mona Tian MD [address] [place] [address] Assigned OBGYN Provider 08/03/20 Brett Torres [facility] [address] [facility] [address] [place], [place] [address] Assigned Behavioral Health Provider 07/14/21 01/02/23 Karen Galvan PA-C [facility] [address] [place] [address] Assigned Sleep Provider 09/01/21 Marie Lawrence, [facility] [address] [address] Assigned MTM Pharmacist 04/05/22 documented as of this encounter
--- OUTSIDE RECORDS SUMMARY | 2023-10-19 14:43 | XMS_ITS | Encounter Summary ---
Author Name Unknown Organization [facility] Address [address] [place] [address] Care Team Providers Care Director Medicare Sales Name Role Phone Andrez Krause PA-C Primary Care Provider Andrez Krause PA-C Unavailable + [phone] Andrez Krause PA-C Unavailable + [phone] Mona Tian MD Unavailable [phone] Heaven Brunson PA-C Primary Care Provider Brett Torres MD Unavailable [phone] Karen Galvan PA-C Unavailable [phone] Marie Lawrence [facility] Unavailable [phone] Reason for Visit * Reason Onset Date Comments Headache 11/30/2018 update Encounter Details Date Type Department Care Team (Late st Contact Info) Description 11/30/2018 MyC Medical Advice [address], [address] [place] [address] Andrez Krause PA-C [address] [place] [address] Headache (update) Social History Tobacco Use Types Packs/Day Years Used Date Smoking Tobacco: Never Smokeless Tobacco: Never Alcohol Use Standard Drinks/Week Comments Yes 0 (1 standard drink = 0.6 oz pur e alcohol) Social, rare PHQ-2 Answer Date Recorded PHQ-2 Score 6 10/19/2018 Sex and Gender Information Value Date Recorded Sex Assigned at Female 11/04/2018 8:36 AM MID TEACHER Gender Identity Female 11/04/2018 8:36 AM MID TEACHER Sexual Orientation Straight 11/04/2018 8: 36 AM MID TEACHER documented as of this encounter Plan of Treatment Not on file documented as of this encounter Visit Diagnoses Diagnosis Migraine without aura and without status migrainosus, not intractable- Primary Migraine without aura, without mention of intractable migraine without mention of status migrainosus documented in this encounter Additional Health Concerns Assessment Noted Time PHQ-9 Depression Total Score: 019 5:05 PM MID TEACHER documented as of this encounter Care Teams Director Medicare Sales Relationship Specialty Start Date End Date Andrez Krause PA-C PCP - General Physician Personal Fitness Manager - Medical 10/09/15 05/29/21 Andrez Krause PA-C [address] [place] [address] PCP - Assigned PCP 09/13/15 12/14/18 Heaven Brunson PA-C [facility] [address], [place] [address] PCP - General Physician Personal Fitness Manager 05/30/21 Andrez Krause PA-C [address] [place] [address] Assigned PCP 09/13/15 06/20/22 Mona Tian MD [address] [place], [place] [address] Assigned OBGYN Provider 08/03/20 Brett Torres [facility] [address] [place] [address] Assigned Behavioral Health Provider 07/14/21 01/02/23 Karen Galvan PA-C [address] [facility] [address] [place] [address] Assigned Sleep Provider 09/01/21 Marie Lawrence, [facility] 5775 [facility] 200 [place] [address] Assigned MTM Pharmacist 04/05/22 documented as of this encounter
--- OUTSIDE RECORDS SUMMARY | 2023-10-19 14:43 | XMS_ITS | Encounter Summary ---
Author Name Unknown Organization [facility] Address [address] [place] [address] Care Team Providers Care Marine Pilot Name Role Phone Andrez Krause PA-C Primary Care Provider Andrez Krause PA-C Unavailable [phone] Mona Tian MD Unavailable [phone] Heaven Brunson PA-C Primary Care Provider Brett Torres MD Unavailable [phone] Karen Galvan PA-C Unavailable [phone] Marie Lawrence [facility] Unavailable [phone] Reason for Visit * Reason Onset Date Comments Medication Refill 04/06/2019 venlafaxine (E FFEXOR-XR) 75 MG 24 hr capsule Encounter Details Date Type Department Care Team (Late st Contact Info) Description 04/05/[address], [address] [place] [address] Andrez Krause PA-C [address] [place] [address] Medication Refill (venlafaxine (EFFEXOR-XR) 75 MG 24 hr capsule) Social History Tobacco Use Types Packs/Day Years Used Date Smoking Tobacco: Never Smokeless Tobacco: Never Alcohol Use Standard Drinks/Week Comments Yes 0 (1 standard drink = 0.6 oz pur e alcohol) Social, rare PHQ-2 Answer Date Recorded PHQ-2 Score 3 02/17/2019 Sex and Gender Information Value Date Recorded Sex Assigned at Female 11/04/2018 8:36 AM EDITOR PRODUCER Gender Identity Female 11/04/2018 8:36 AM EDITOR PRODUCER Sexual Orientation Straight 11/04/2018 8: 36 AM EDITOR PRODUCER documented as of this encounter Miscellaneous Notes * Telephone Encounter - Tammie Arroyo RN - 04/08/2019 10:57 AM CDT LM for call back see below - Pt is due for f/u in April Return in about 2 months (around 04/19/2019) for Follow up Tammie Arroyo RN * Telephone Encounter - Andrez Krause PA-C - 04/07/2019 4:43 PM CDT See if she wants to do a virtual visit with me if she needs to discuss anything. PHQ and SHAYY are almost always out of range. I refilled the #90 tabs. Andrez Aranog * Telephone Encounter - Flor Bills RN - 04/07/2019 3:24 PM CDT Routing refill request to provider for review/approval because: Labs out of range: PHQ9 >4. Follow up visit due in April. Flor Bills RN Flex * Telephone Encounter - Denia Reddy - 04/06/2019 9:07 AM CDT Requested Prescriptions Pending Prescriptions Disp Refills ??? venlafaxine (EFFEXOR-XR) 75 MG 24 hr capsule [Pharmacy Med Name: VENLAFAXINE HCL ER 75 MG CAP] 90 capsule 0 Sig: TAKE 1 CAPSULE(75 MG) BY MOUTH DAILY Last Written Prescription Date: 01/12/19 Last Fill Quantity: 90, # refills: 0 Last Office Visit: 02/17/2019 Future Office Visit: Serotonin-Norepinephrine Reuptake Inhibitors Failed - 04/05/2019 9:30 PM Failed - PHQ-9 score of less than 5 in past 6 months PHQ-9 SCORE 07/27/2018 11/05/2018 02/17/2019 PHQ-9 Total Score MyChart 21 (Severe depression) - - PHQ-9 Total Score 21 21 17 SHAYY-7 SCORE 04/09/2018 11/05/2018 02/17/2019 Total Score 17 (severe anxiety) - - Total Score 17 21 21 Failed - Normal serum creatinine on file in past 12 months Recent Labs Lab Test 04/22/16 1639 CR 0.99 Passed - Blood pressure under 140/90 in past 12 months BP Readings from Last 3 Encounters: 04/03/19 120/74 03/14/19 128/70 02/17/19 106/66 Passed - Medication is active on med list Passed - Patient is age 18 or older Passed - No active on record Passed - No positive test in past 12 months Passed - Recent (6 mo) or future (30 days) visit within the authorizing provider's specialty Patient had office visit in the last 6 months or has a visit in the next 30 days with authorizing provider or within the authorizing provider's specialty. See Patient Info tab in inbasket, or Choose Columns in Meds & Orders section of the refill encounter. documented in this encounter Plan of Treatment Not on file documented as of this encounter Visit Diagnoses Diagnosis Severe episode of recurrent major depressive disorder, without psychotic features (H) SHAYY (generalized anxiety disorder) Generalized anxiety disorder documented in this encounter Additional Health Concerns Assessment Noted Time PHQ-9 Depression Total Score: 17 019 8:25 AM CDT documented as of this encounter Care Teams Marine Pilot Relationship Specialty Start Date End Date Andrez Krause PA-C PCP - General Physician Business Education Instructor - Medical 10/09/15 05/29/21 Heaven Brunson PA-C [facility] [address] [place] [address] PCP - General Physician Business Education Instructor 05/30/21 Andrez Krause PA-C [address] [place] [address] Assigned PCP 09/13/15 06/20/22 Mona Tian MD [address] [place], [place] [address] Assigned OBGYN Provider 08/03/20 Brett Torres [facility] [address] [facility] 255 [place] [address] Assigned Behavioral Health Provider 07/14/21 01/02/23 Karen Galvan PA-C [address] [facility] [address] [place], [place] [address] Assigned Sleep Provider 09/01/21 Marie Lawrence, [facility] 5775 [facility] 200 [place] [address] Assigned MTM Pharmacist 04/05/22 documented as of this encounter
--- OUTSIDE RECORDS SUMMARY | 2023-10-19 14:43 | XMS_ITS | Encounter Summary ---
Author Name Unknown Organization [facility] Address [address] [place] [address] Care Team Providers Care Tool Grinder Operator External Name Role Phone Andrez Krause PA-C Primary Care Provider Andrez Krause PA-C Unavailable [phone] Mona Tian MD Unavailable [phone] Heaven Brunson PA-C Primary Care Provider Brett Torres MD Unavailable [phone] Karen Galvan PA-C Unavailable [phone] Marie Lawrence [facility] Unavailable [phone] Reason for Visit * Reason Onset Date Comments Vaginal Problem 02/10/2020 bleeding Encounter Details Date Type Department Care Team (Late st Contact Info) Description 02/10/2020 [facility] Medical Advice [address] [address] Mona Tian MD [facility] [place] [place] [address] Vaginal Problem (bleeding) Social History Tobacco Use Types Packs/Day Years Used Date Smoking Tobacco: Never Smokeless Tobacco: Never Alcohol Use Standard Drinks/Week Comments Yes 0 (1 standard drink = 0.6 oz pur e alcohol) Social, rare PHQ-2 Answer Date Recorded PHQ-2 Score 3 02/17/2019 Sex and Gender Information Value Date Recorded Sex Assigned at Female 11/04/2018 8:36 AM MANAGED SERVICES CONSULTANT Gender Identity Female 11/04/2018 8:36 AM MANAGED SERVICES CONSULTANT Sexual Orientation Straight 11/04/2018 8: 36 AM MANAGED SERVICES CONSULTANT COVID-19 Exposure Response Date Recorded In the last month, have you been in contact with someone who was confirmed or suspected to have Coronavirus / COVID-19? No / Unsure 01/20/2020 2:43 PM CDT documented as of this encounter Miscellaneous Notes * Telephone Encounter - Deb Crockett RN - 02/10/2020 1:01 PM CDT Mychart message sent with advise. Deb Crockett RN * Telephone Encounter - Josue Field MD - 02/10/2020 12:29 PM CDT Advise Pt that she may want to finish her current pack out, take 1 cycle off to allow a pack holiday to see if her uterine lining can reset itself. Assuming she has a normal period 4 weeks or so after the last period from her OCP pack, she can start her OCPs back up again the Thursday following that first day of her spontaneous period. She will need to use condoms until she is through her second OCP pack. Also she may have some BTB during the first 2-3 packs and that is normal. She can call if her menses are really abnormal despite this and touch base with Dr. Tian. * Telephone Encounter - Deb Crockett RN - 02/10/2020 12:00 PM CDT Please see mychart regarding OCP, bleeding and sx. She had her IUD removed due to malposition on 12/23/19. Deb Crockett RN documented in this encounter Plan of Treatment Not on file documented as of this encounter Visit Diagnoses Not on filedocumented in this encounter Additional Health Concerns Assessment Noted Time PHQ-9 Depression Total Score: 23 05/05/2 019 9:13 AM CDT documented as of this encounter Care Teams Tool Grinder Operator External Relationship Specialty Start Date End Date Andrez Krause PA-C PCP - General Physician Skills Instructor - Medical 10/09/15 05/29/21 Heaven Brunson PA-C [facility] [address] [place] [address] PCP - General Physician Skills Instructor 05/30/21 Andrez Krause PA-C [address] [place] [address] Assigned PCP 09/13/15 06/20/22 Mona Tian MD [address] [place], [place] [address] Assigned OBGYN Provider 08/03/20 Brett Torres [facility] [address] [facility] 255 [place], [place] [address] Assigned Behavioral Health Provider 07/14/21 01/02/23 Karen Galvan PA-C [address] [facility] 103 [place], [place] [address] Assigned Sleep Provider 09/01/21 Marie Lawrence, [facility] 5775 [facility] 200 [place], [place] [address] Assigned MTM Pharmacist 04/05/22 documented as of this encounter
--- OUTSIDE RECORDS SUMMARY | 2023-10-19 14:43 | XMS_ITS | Encounter Summary ---
Author Name Unknown Organization [facility] Address [address] [place] [address]. [place] [address] Care Team Providers Care Pearl Technician Name Role Phone Andrez Krause PA-C Primary Care Provider Andrez Krause PA-C Unavailable [phone] Mona Tian MD Unavailable [phone] Heaven Brunson PA-C Primary Care Provider Brett Torres MD Unavailable [phone] Karen Galvan PA-C Unavailable [phone] Marie Lawrence [facility] Unavailable [phone] Encounter Details Date Type Department Care Team (Late st Contact Info) Description 12/22/2019 [facility] Medical Advice [address], [address] [place] [address] Andrez Krause PA-C [address] [place] [address] Social History Tobacco Use Types Packs/Day Years Used Date Smoking Tobacco: Never Smokeless Tobacco: Never Alcohol Use Standard Drinks/Week Comments Yes 0 (1 standard drink = 0.6 oz pur e alcohol) Social, rare PHQ-2 Answer Date Recorded PHQ-2 Score 3 02/17/2019 Sex and Gender Information Value Date Recorded Sex Assigned at Female 11/04/2018 8:36 AM DYE FEEDER Gender Identity Female 11/04/2018 8:36 AM DYE FEEDER Sexual Orientation Straight 11/04/2018 8: 36 AM DYE FEEDER documented as of this encounter Plan of Treatment Not on file documented as of this encounter Visit Diagnoses Not on filedocumented in this encounter Additional Health Concerns Assessment Noted Time PHQ-9 Depression Total Score: 23 019 9:13 AM CDT documented as of this encounter Care Teams Pearl Technician Relationship Specialty Start Date End Date Andrez Krause PA-C PCP - General Physician Delivery Consultant - Medical 10/09/15 05/29/21 Heaven Brunson PA-C [facility] [address] [place] [address] PCP - General Physician Delivery Consultant 05/30/21 Andrez Krause PA-C [address] [place] [address] Assigned PCP 09/13/15 06/20/22 Mona Tian MD [address] [place], [place] [address] Assigned OBGYN Provider 08/03/20 Brett Torres [facility] [address] [facility] 255 [place], [place] [id number] Assigned Behavioral Health Provider 07/14/21 01/02/23 Karen Galvan PA-C 6363 [facility] 103 [place], [place] [address] Assigned Sleep Provider 09/01/21 Marie Lawrence [facility] 5775 [facility] 200 [place] [address] Assigned MTM Pharmacist 04/05/22 documented as of this encounter
--- OUTSIDE RECORDS SUMMARY | 2023-10-19 14:43 | XMS_ITS | Encounter Summary ---
Author Name Unknown Organization [facility] Address [address] [place] [address] Care Team Providers Care Rn Interventional Name Role Phone Andrez Krause PA-C Primary Care Provider Andrez Krause PA-C Unavailable [phone] Mona Tian MD Unavailable [phone] Heaven Brunson PA-C Primary Care Provider Brett Torres MD Unavailable [phone] Karen Galvan PA-C Unavailable [phone] Marie Lawrence [facility] Unavailable [phone] Reason for Visit * Reason Onset Date Comments Headache 04/12/2020 Encounter Details Date Type Department Care Team (Late st Contact Info) Description 04/12/2020 My[facility] Medical Advice [address], [address] [place] [address] Andrez Krause PA-C [address] [place] [address] Headache Social History Tobacco Use Types Packs/Day Years Used Date Smoking Tobacco: Never Smokeless Tobacco: Never Alcohol Use Standard Drinks/Week Comments Yes 0 (1 standard drink = 0.6 oz pur e alcohol) Social, rare PHQ-2 Answer Date Recorded PHQ-2 Score 3 02/17/2019 Sex and Gender Information Value Date Recorded Sex Assigned at Female 11/04/2018 8:36 AM DOT ETCHER Gender Identity Female 11/04/2018 8:36 AM DOT ETCHER Sexual Orientation Straight 11/04/2018 8: 36 AM DOT ETCHER documented as of this encounter Miscellaneous Notes * Telephone Encounter - Bradford Grijalva MD - 04/13/2020 1:44 PM CDT RN OK to sign once pharmacy confirmed Bradford Grijalva MD * Telephone Encounter - Constantin Warren RN - 04/12/2020 10:25 AM CDT Tugende message sent to patient. Constantin Denise RN documented in this encounter Plan of [...] documented as of this encounter Care Teams Rn Interventional Relationship Specialty Start Date End Date Andrez Krause PA-C PCP - General Physician Underwear Trimmer - Medical 10/09/15 05/29/21 Heaven Brunson PA-C [facility] [address] [place] [address] PCP - General Physician Underwear Trimmer 05/30/21 Andrez Krause PA-C [address] [place] [address] Assigned PCP 09/13/15 06/20/22 Mona Tian MD [address] [place] [address] Assigned OBGYN Provider 08/03/20 Brett Torres [facility] [address] [facility] 255 [place], [place] [address] Assigned Behavioral Health Provider 07/14/21 01/02/23 Karen Galvan PA-C [address] [facility] [address] [place] [address] Assigned Sleep Provider 09/01/21 Marie Lawrence, [facility] 5775 [facility] 200 [place] [address] Assigned MTM Pharmacist 04/05/22 documented as of this encounter
--- OUTSIDE RECORDS SUMMARY | 2023-10-19 14:43 | XMS_ITS | Encounter Summary ---
Author Name Unknown Organization [facility] Address [address] [address] Care Team Providers Care Manager Medical Device Name Role Phone Andrez Krause PA-C Primary Care Provider Andrez Krause PA-C Unavailable [phone] Andrez Krause PA-C Unavailable + [phone] Mona Tian MD Unavailable [phone] Heaven Brunson PA-C Primary Care Provider Brett Torres MD Unavailable [phone] Karen Galvan PA-C Unavailable [phone] Marie Lawrence [facility] Unavailable [phone] Encounter Details Date Type Department Care Team (Late st Contact Info) Description 04/03/2018 [facility] Medical Advice [address] [address] Geraldine Chavarria, RN Social History Tobacco Use Types Packs/Day Years Used Date Smoking Tobacco: Never Smokeless Tobacco: Never Alcohol Use Standard Drinks/Week Comments Yes 0 (1 standard drink = 0.6 oz pur e alcohol) socially Sex and Gender Information Value Date Recorded Sex Assigned at Female 11/04/2018 8:36 AM INSPECTOR AND CLERK Gender Identity Female 11/04/2018 8:36 AM INSPECTOR AND CLERK Sexual Orientation Straight 11/04/2018 8: 36 AM INSPECTOR AND CLERK documented as of this encounter Plan of Treatment Not on file documented as of this encounter Visit Diagnoses Not on filedocumented in this encounter Additional Health Concerns Assessment Noted Time PHQ-9 Depression Total Score: 23 04/10/ 018 7:00 AM CDT documented as of this encounter Care Teams Manager Medical Device Relationship Specialty Start Date End Date Andrez Krause PA-C PCP - General Physician Special Education Tutor - Medical 10/09/15 05/29/21 Andrez Krause PA-C [address] [place] [address] PCP - Assigned PCP 09/13/15 12/14/18 Heaven Brunson PA-C [facility] [address] [place] [address] PCP - General Physician Special Education Tutor 05/30/21 Andrez Krause PA-C [address] [place] [address] Assigned PCP 09/13/15 06/20/22 Mona Tian MD [address] [place] [address] Assigned OBGYN Provider 08/03/20 Brett Torres MD [facility] [address] [facility] 255 [place] [address] Assigned Behavioral Health Provider 07/14/21 01/02/23 Karen Galvan PA-C [address] [address] Assigned Sleep Provider 09/01/21 Marie Lawrence, [facility] [address] [address] Assigned MTM Pharmacist 04/05/22 documented as of this encounter
--- OUTSIDE RECORDS SUMMARY | 2023-10-19 14:43 | XMS_ITS | Encounter Summary ---
Author Name Unknown Organization [facility] Address [address] [place] [address] Care Team Providers Care Terrazzo Supervisor Name Role Phone Andrez Krause PA-C Primary Care Provider Andrez Krause PA-C Unavailable [phone] Mona Tian MD Unavailable [phone] Heaven Brunson PA-C Primary Care Provider Brett Torres MD Unavailable [phone] Karen Galvan PA-C Unavailable [phone] Marie Lawrence [facility] Unavailable [phone] Reason for Visit * Reason Onset Date Comments Refill Request 01/10/2019 Emgality Encounter Details Date Type Department Care Team (Late st Contact Info) Description 01/10/2019 My[facility] Medical Advice [address], [address] [place] [address] Andrez Krause PA-C [address] [place] [address] Refill Request (Emgality) Social History Tobacco Use Types Packs/Day Years Used Date Smoking Tobacco: Never Smokeless Tobacco: Never Alcohol Use Standard Drinks/Week Comments Yes 0 (1 standard drink = 0.6 oz pur e alcohol) Social, rare PHQ-2 Answer Date Recorded PHQ-2 Score 6 10/19/2018 Sex and Gender Information Value Date Recorded Sex Assigned at Female 11/04/2018 8:36 AM PECAN MALLOW DIPPER Gender Identity Female 11/04/2018 8:36 AM PECAN MALLOW DIPPER Sexual Orientation Straight 11/04/2018 8: 36 AM PECAN MALLOW DIPPER documented as of this encounter Miscellaneous Notes * Telephone Encounter - Geraldine Chavarria RN - 01/11/2019 11:20 AM CDT Pt called back, scheduled appt for tomorrow am If needs more immediate help will go to urgent care anila Chavarria RN, BS Clinical Nurse Triage. * Telephone Encounter - Andrez Krause PA-C - 01/11/2019 11:10 AM CDT I agree a visit would be appropriate. If she still does not have insurance a phone visit would be fine. Andrez * Telephone Encounter - Geraldine Chavarria RN - 01/11/2019 10:57 AM CDT Disp Refills Start End MORE galcanezumab-gnlm (EMGALITY) 120 MG/ML injection 2 mL 0 12/16/2018 12/16/2018 -- Sig - Route: Inject 2 mLs (240 mg) Subcutaneous once for 1 dose - Subcutaneous Sent to pharmacy as: galcanezumab-gnlm (EMGALITY) 120 MG/ML injection Class: E-Prescribe Order: [id number] E-Prescribing Status: Receipt confirmed by pharmacy (12/16/2018 12:57 PM PECAN MALLOW DIPPER) Last OV 2.14.19 for migraine, received Toradol inj and prednisone Andrez Krause PA-C Physician Senior Systems Engineer Signed Creation Time: 12/16/2018 12:56 PM OK, first dose is to do 240mg followed by 120mg monthly after that. I'll do the first Rx now. ?? Thanks! Nalini Bunn, RN Registered Nurse Signed Creation Time: 12/16/2018 12:06 PM Please approve rx for EMGALITY as patient is willing to give it a try. She will crab picker the card to you have provider for the 12 month free. ?? Nalini Conte RN LM for pt to schedule appt with provider to review medication Geraldine Chavarria RN, BS Clinical Nurse Triage. * Telephone Encounter - Jeanne Phillips MD - 01/10/2019 9:35 AM CDT She has not see the provider for this rx. She ordered via [facility] about 1 month ago. [facility]. Thank you * Telephone Encounter - Nalini Conte RN - 01/10/2019 8:52 AM CDT Emgality 120mg/ml Last Written Prescription Date: 12/16/2018 Last Fill Quantity: 2ml, # refills: 0 Last Office Visit: 11/25/2018 Future Office visit: Routing refill request to provider for review/approval because: Drug not on the [facility] refill protocol or controlled substance Nalini Conte RN documented in this encounter Plan of Treatment Not on file documented as of this encounter Visit Diagnoses Diagnosis Migraine without aura and without status migrainosus, not intractable Migraine without aura, without mention of intractable migraine without mention of status migrainosus documented in this encounter Additional Health Concerns Assessment Noted Time PHQ-9 Depression Total Score: 019 5:05 PM PECAN MALLOW DIPPER documented as of this encounter Care Teams Terrazzo Supervisor Relationship Specialty Start Date End Date Andrez Krause PA-C PCP - General Physician Senior Systems Engineer - Medical 10/09/15 05/29/21 Heaven Brunson PA-C [facility] [address] [place] [address] PCP - General Physician Senior Systems Engineer 05/30/21 Andrez Krause PA-C [address] [place] [address] Assigned PCP 09/13/15 06/20/22 Mona Tian MD [address] [place], [place] [address] Assigned OBGYN Provider 08/03/20 Brett Torres MD [facility] [address] [facility] 255 [place], [place] [address] Assigned Behavioral Health Provider 07/14/21 01/02/23 Karen Galvan PA-C [address] [facility] 103 [place], [place] [address] Assigned Sleep Provider 09/01/21 Marie Lawrence, [facility] 57[address] [facility] 200 [place] [address] Assigned MTM Pharmacist 04/05/22 documented as of this encounter
--- OUTSIDE RECORDS SUMMARY | 2023-10-19 14:43 | XMS_ITS | Encounter Summary ---
Author Name Unknown Organization [place] Address [address] [place] [address]. [place] [address] Care Team Providers Care Manager Creative Name Role Phone Andrez Krause PA-C Primary Care Provider Andrez Krause PA-C Unavailable + [phone] Andrez Krause PA-C Unavailable + [phone] Mona Tian MD Unavailable [phone] Heaven Brunson PA-C Primary Care Provider Brett Torres MD Unavailable +[phone] Karen Galvan PA-C Unavailable + [phone] Marie Lawrence [facility] Unavailable +[phone] Reason for Referral * Consultation - Closed Specialty Diagnoses / Procedures Referred By Andie t Referred To Contact Diagnoses Migraine without aura and without status migrainosus, not intractable Andrez Krause PA-C [address] [place] [address] [facility] [address] [place] [id number] Referral ID Status Reason Start Date Expiration Date Visits Re quested Visits Authorized [id number] Closed 11/22/2018 11/22/2019 1 1 Comments Your provider has referred you for the following: Consult at [facility]: [facility] Neurology [facility] [email or web address] Please be aware that coverage of these services is subject to the terms and limitations of your health insurance plan. Call member services at your health plan with any benefit or coverage questions. Please bring the following with you to your appointment: (1) Any X-Rays, CTs or MRIs which have been performed. Contact the facility where they were done to arrange for pick pulling machine tender prior to your scheduled appointment. (2) List of current medications (3) This referral request (4) Any documents/labs given to you for this referral RONMENTAL EMERGENCIES ASSISTANT Reason for Visit * Reason Onset Date Comments Patient/info Update 11/11/2018 Prior auth f or Aimovig Encounter Details Date Type Department Care Team (Late st Contact Info) Description 11/11/2018 [facility] Medical [address], [address] [place] [address] Andrez Krause PA-C [address] [place] [address] Patient/info Update (Prior auth for Aimovig) Social History Tobacco Use Types Packs/Day Years Used Date Smoking Tobacco: Never Smokeless Tobacco: Never Alcohol Use Standard Drinks/Week Comments Yes 0 (1 standard drink = 0.6 oz pur e alcohol) Social, rare PHQ-2 Answer Date Recorded PHQ-2 Score 6 10/19/2018 Sex and Gender Information Value Date Recorded Sex Assigned at Female 11/04/2018 8:36 AM ENVIRONMENTAL EMERGENCIES ASSISTANT Gender Identity Female 11/04/2018 8:36 AM ENVIRONMENTAL EMERGENCIES ASSISTANT Sexual Orientation Straight 11/04/2018 8: 36 AM ENVIRONMENTAL EMERGENCIES ASSISTANT documented as of this encounter Miscellaneous Notes * Telephone Encounter - Andrez Krause PA-C - 11/22/2018 4:57 PM ENVIRONMENTAL EMERGENCIES ASSISTANT Not sure of her network or where she has been before but will refer where I usually do. Please callher with info. Andrez Arango RONMENTAL EMERGENCIES ASSISTANT * Telephone Encounter - Nalini Conte RN - 11/16/2018 1:38 PM CST It looks like they are other monoclonal antibody injections which this medication (Amovig) also is.I honestly thought Amovig was a first of it's kind. I am not comfortable going down the road of using other medications in this category at this point without the guidance of a Neurologist. I think perhaps she should get the Rx from a specialist. I had another patient who could get the Rx covered when coming from a Neurology specialist. Perhaps this is why? Can we call and talk to Starr and explainthis to her? I can give her a referral. Maybe she should contact her insurance and see if this is the case also for her. MyChart message explaining the prior auth denial to patient was sent to patient. Nalini Conte RN ?? RONMENTAL EMERGENCIES ASSISTANT documented in this encounter Plan of Treatment Scheduled Referrals Name Type Priority Associated Diagnoses Orde r Schedule NEUROLOGY ADULT REFERRAL Referral Routine Migraine without aura and without status migrainosus, not intractable Ordered: 11/22/2018 documented as of this encounter Visit Diagnoses Diagnosis Migraine without aura and without status migrainosus, not intractable- Primary Migraine without aura, without mention of intractable migraine without mention of status migrainosus documented in this encounter Additional Health Concerns Assessment Noted Time PHQ-9 Depression Total Score: 019 5:05 PM ENVIRONMENTAL EMERGENCIES ASSISTANT documented as of this encounter Care Teams Manager Creative Relationship Specialty Start Date End Date Andrez Krause PA-C PCP - General Physician Supervisor Loading - Medical 10/09/15 05/29/21 Andrez Krause PA-C [address] [address] PCP - Assigned PCP 09/13/15 12/14/18 Heaven Brunson PA-C [facility] [address] [place] [address] PCP - General Physician Supervisor Loading 05/30/21 Andrez Krause PA-C [address] [place] [address] Assigned PCP 09/13/15 06/20/22 Mona Tian MD [address] [place] [address] Assigned OBGYN Provider 08/03/20 Brett Torres [facility] [address] [facility] [address] [place], [place] [id number] Assigned Behavioral Health Provider 07/14/21 01/02/23 Karen Galvan PA-C [address] [facility] [address] [place] [address] Assigned Sleep Provider 09/01/21 Marie Lawrence, [facility] [address] [facility] [address] [place], [place] [id number] Assigned MTM Pharmacist 04/05/22 documented as of this encounter
--- OUTSIDE RECORDS SUMMARY | 2023-10-19 14:43 | XMS_ITS | Encounter Summary ---
Author Name Unknown Organization [place] Address [address] [place] [address] Care Team Providers Care Long Goods Drier Name Role Phone Andrez Krause PA-C Primary Care Provider Andrez Krause PA-C Unavailable + [phone] Andrez Krause PA-C Unavailable + [phone] Mona Tian MD Unavailable +[phone] Heaven Brunson PA-C Primary Care Provider Brett Torres MD Unavailable [phone] Karen Galvan PA-C Unavailable [phone] Marie Lawrence [facility] Unavailable [phone] Reason for Visit * Reason Onset Date Comments Forms 12/13/2018 Unemployment Encounter Details Date Type Department Care Team (Late st Contact Info) Description 12/13/2018 MyC Medical Advice [address], [address] [place] [address] Andrez Krause PA-C [address] [place] [address] Forms (Unemployment) Social History Tobacco Use Types Packs/Day Years Used Date Smoking Tobacco: Never Smokeless Tobacco: Never Alcohol Use Standard Drinks/Week Comments Yes 0 (1 standard drink = 0.6 oz pur e alcohol) Social, rare PHQ-2 Answer Date Recorded PHQ-2 Score 6 10/19/2018 Sex and Gender Information Value Date Recorded Sex Assigned at Female 11/04/2018 8:36 AM FOREIGN LANGUAGE INSTRUCTOR Gender Identity Female 11/04/2018 8:36 AM FOREIGN LANGUAGE INSTRUCTOR Sexual Orientation Straight 11/04/2018 8: 36 AM FOREIGN LANGUAGE INSTRUCTOR documented as of this encounter Miscellaneous Notes * Telephone Encounter - Andrez Krause PA-C - 12/16/2018 12:56 PM FOREIGN LANGUAGE INSTRUCTOR OK, first dose is to do 240mg followed by 120mg monthly after that. I'll do the first Rx now. Thanks! Andrez IGN LANGUAGE INSTRUCTOR * Telephone Encounter - Nalini Conte RN - 12/16/2018 12:06 PM CST Please approve rx for EMGALITY as patient is willing to give it a try. She will metal pickling equipment operator the card to you have provider for the 12 month free. Nalini Conte RN IGN LANGUAGE INSTRUCTOR * Telephone Encounter - Nalini Conte RN - 12/16/2018 11:28 AM CST Form faxed to [phone]. Copy placed in abstracting. Original in my in-basket waiting for patient to let us know if she would like to metal pickling equipment operator copy of have us mail it to her. I also have the Emgality Savings Card for patient in my in-basket if patient is interested in it. Waiting for patient to let us know about this as well. Nalini Conte RN IGN LANGUAGE INSTRUCTOR * Telephone Encounter - Anderz Krause PA-C - 12/15/2018 2:39 PM FOREIGN LANGUAGE INSTRUCTOR OK, Ill get it signed. Andrez IGN LANGUAGE INSTRUCTOR * Telephone Encounter - Nalini Conte RN - 12/15/2018 1:20 PM CST This message was not routed to you as there was already a phone message created for the form. This is NOT a permanent disability from what I can see. Nalini Conte, RN IGN LANGUAGE INSTRUCTOR * Telephone Encounter - Andrez Krause PA-C - 12/15/2018 12:52 PM FOREIGN LANGUAGE INSTRUCTOR Hey! I see this in my actual basket now, but was it routed to me? I'm not signing for any permamentdisability am I? Just for dates gone at this point? Just wondering when looking at the form.... I can sign it otherwise and she can pick it up LYSSA. Andrez IGN LANGUAGE INSTRUCTOR documented in this encounter Plan of Treatment Not on file documented as of this encounter Visit Diagnoses Diagnosis Migraine without aura and without status migrainosus, not intractable- Primary Migraine without aura, without mention of intractable migraine without mention of status migrainosus documented in this encounter Additional Health Concerns Assessment Noted Time PHQ-9 Depression Total Score: 019 5:05 PM FOREIGN LANGUAGE INSTRUCTOR documented as of this encounter Care Teams Long Goods Drier Relationship Specialty Start Date End Date Andrez Krause PA-C PCP - General Physician Mailroom Coordinator - Medical 10/09/15 05/29/21 Andrez Krause PA-C [address] [address] PCP - Assigned PCP 09/13/15 12/14/18 Heaven Brunson PA-C [facility] [address] [place] [address] PCP - General Physician Mailroom Coordinator 05/30/21 Andrez Krause PA-C [address] [address] Assigned PCP 09/13/15 06/20/22 Mona Tian MD [address] [place] [address] Assigned OBGYN Provider 08/03/20 Brett Torres [facility] [address] [facility] [address] [place], [place] [address] Assigned Behavioral Health Provider 07/14/21 01/02/23 Karen Galvan PA-C [address] [facility] [address] [place] [address] Assigned Sleep Provider 09/01/21 Marie Lawrence, [facility] [address] [facility] [address] [place] [address] Assigned MTM Pharmacist 04/05/22 documented as of this encounter
--- OUTSIDE RECORDS SUMMARY | 2023-10-19 14:43 | XMS_ITS | Encounter Summary ---
Author Name Unknown Organization [place] Address [address] [place] [address] Care Team Providers Care Back Gray Cloth Washer Name Role Phone Andrez Krause PA-C Primary Care Provider Andrez Krause PA-C Unavailable [phone] Mona Tian MD Unavailable [phone] Heaven Brunson PA-C Primary Care Provider Brett Torres MD Unavailable [phone] Karen Galvan PA-C Unavailable [phone] Marie Lawrence [facility] Unavailable [phone] Reason for Visit * Reason Onset Date Comments IUD 12/06/2019 Concerns Encounter Details Date Type Department Care Team (Late st Contact Info) Description 12/06/2019 MyC Medical Advice [address], [address] [place] [address] Andrez Krause PA-C [address] [place] [address] IUD (Concerns) Social History Tobacco Use Types Packs/Day Years Used Date Smoking Tobacco: Never Smokeless Tobacco: Never Alcohol Use Standard Drinks/Week Comments Yes 0 (1 standard drink = 0.6 oz pur e alcohol) Social, rare PHQ-2 Answer Date Recorded PHQ-2 Score 3 02/17/2019 Sex and Gender Information Value Date Recorded Sex Assigned at Female 11/04/2018 8:36 AM COMMERCIAL ELECTRICIAN Gender Identity Female 11/04/2018 8:36 AM COMMERCIAL ELECTRICIAN Sexual Orientation Straight 11/04/2018 8: 36 AM COMMERCIAL ELECTRICIAN documented as of this encounter Miscellaneous Notes * Telephone Encounter - Andrez Krause PA-C - 12/07/2019 10:42 AM COMMERCIAL ELECTRICIAN She can come in for a visit. May not need it actually physically checked. Sometimes we can give OCP's or progesterone to stop bleeding that has been prolonged. Phone or evisit may still work for this. Andrez Arango ERCIAL ELECTRICIAN documented in this encounter Plan of Treatment Not on file documented as of this encounter Visit Diagnoses Not on filedocumented in this encounter Additional Health Concerns Assessment Noted Time PHQ-9 Depression Total Score: 23 019 9:13 AM CDT documented as of this encounter Care Teams Back Gray Cloth Washer Relationship Specialty Start Date End Date Andrez Krause PA-C PCP - General Physician Roll Hand - Medical 10/09/15 05/29/21 Heaven Brunson PA-C [facility] [address] [place] [address] PCP - General Physician Roll Hand 05/30/21 Andrez Krause PA-C [address] [place] [address] Assigned PCP 09/13/15 06/20/22 Mona Tian MD [address] [place] [address] Assigned OBGYN Provider 08/03/20 Brett Torres [facility] [address] [place] [address] Assigned Behavioral Health Provider 07/14/21 01/02/23 Karen Galvan PA-C [address] [facility] [address] [place] [address] Assigned Sleep Provider 09/01/21 Marie Lawrence [facility] [address] [facility] [address] [place], [place] [id number] Assigned MTM Pharmacist 04/05/22 documented as of this encounter
--- OUTSIDE RECORDS SUMMARY | 2023-10-19 14:43 | XMS_ITS | Encounter Summary ---
Author Name Unknown Organization [place] Address [address] [place] [address] Care Team Providers Care Supervisor Travel Trailer Name Role Phone Andrez Krause PA-C Primary Care Provider Andrez Krause PA-C Unavailable [phone] Mona Tian MD Unavailable [phone] Heaven Brunson PA-C Primary Care Provider Brett Torres MD Unavailable [phone] Karen Galvan PA-C Unavailable [phone] [facility] Unavailable [phone] Reason for Visit * Reason Onset Date Comments Headache 03/20/2019 Encounter Details Date Type Department Care Team (Late st Contact Info) Description 03/20/2019 MyC Medical Advice [facility] [address] [place] [address] Tadeo Wilks MD [address] [facility] [address] [address] [place], [place] [id number] Headache Social History Tobacco Use Types Packs/Day Years Used Date Smoking Tobacco: Never Smokeless Tobacco: Never Alcohol Use Standard Drinks/Week Comments Yes 0 (1 standard drink = 0.6 oz pur e alcohol) Social, rare PHQ-2 Answer Date Recorded PHQ-2 Score 3 02/17/2019 Sex and Gender Information Value Date Recorded Sex Assigned at Female 11/04/2018 8:36 AM INFANTRY ASSAULTMAN Gender Identity Female 11/04/2018 8:36 AM INFANTRY ASSAULTMAN Sexual Orientation Straight 11/04/2018 8: 36 AM INFANTRY ASSAULTMAN documented as of this encounter Miscellaneous Notes * Telephone Encounter - Tammie Mckoy RN - 03/21/2019 7:58 AM CDT Please advise on message. You saw her 03/14/19: Plan: I am not familiar with the use of progesterone for this. I discussed the progesterone that was in the patient's Mirena IUD and also reviewed the bleeding pattern that she is had. I will do a literature search and get back with her on further therapies. It may be appropriate to have the patient follow back with the neurologist to see if additional therapies can be undertaken. The patient states that she does not want to ever have children reviewed my intense hesitation to proceed with any surgical surgeries Tammie Pryor R.N. [facility] documented in this encounter Plan of Treatment Not on file documented as of this encounter Visit Diagnoses Not on filedocumented in this encounter Additional Health Concerns Assessment Noted Time PHQ-9 Depression Total Score: 17 019 8:25 AM CDT documented as of this encounter Care Teams Supervisor Travel Trailer Relationship Specialty Start Date End Date Andrez Krause PA-C PCP - General Physician Ambulatory Care - Medical 10/09/15 05/29/21 Heaven Brunson PA-C [facility] [address] [place] [address] PCP - General Physician Ambulatory Care 05/30/21 Andrez Krause PA-C [address] [place] [address] Assigned PCP 09/13/15 06/20/22 Mona Tian MD [address] [place] [address] Assigned OBGYN Provider 08/03/20 Brett Torres [facility] [address] [facility] [address] [place], [place] [address] Assigned Behavioral Health Provider 07/14/21 01/02/23 Karen Galvan PA-C [address] [facility] [address] [place] [address] Assigned Sleep Provider 09/01/21 Marie Lawrence, [facility] [address] [facility] [address] [place], [place] [id number] Assigned MTM Pharmacist 04/05/22 documented as of this encounter
--- OUTSIDE RECORDS SUMMARY | 2023-10-19 14:44 | XMS_ITS | Encounter Summary ---
Author Name Unknown Organization [place] Address [address] [place] [address] Care Team Providers Care Senior Investment Manager Name Role Phone Andrez Krause PA-C Primary Care Provider Andrez Krause PA-C Unavailable + [phone] Andrez Krause PA-C Unavailable + [phone] Mona Tian MD Unavailable [phone] Heaven Brunson PA-C Primary Care Provider Brett Torres MD Unavailable [phone] Karen Galvan PA-C Unavailable [phone] Marie Lawrence [facility] Unavailable [phone] Encounter Details Date Type Department Care Team (Late st Contact Info) Description 08/25/2017 MyC Medical Advice [address], [address] [place] [address] Nalini Conte RN Social History Tobacco Use Types Packs/Day Years Used Date Smoking Tobacco: Never Smokeless Tobacco: Never Alcohol Use Standard Drinks/Week Comments Yes 0 (1 standard drink = 0.6 oz pur e alcohol) socially Sex and Gender Information Value Date Recorded Sex Assigned at Female 11/04/2018 8:36 AM EQUIPMENT SALES SPECIALIST Gender Identity Female 11/04/2018 8:36 AM EQUIPMENT SALES SPECIALIST Sexual Orientation Straight 11/04/2018 8: 36 AM EQUIPMENT SALES SPECIALIST documented as of this encounter Plan of Treatment Not on file documented as of this encounter Visit Diagnoses Not on filedocumented in this encounter Additional Health Concerns Assessment Noted Time PHQ-9 Depression Total Score: 25 017 7:07 AM CDT documented as of this encounter Care Teams Senior Investment Manager Relationship Specialty Start Date End Date Andrez Krause PA-C PCP - General Physician Senior Marketing Manager - Medical 10/09/15 05/29/21 Andrez Krause PA-C [address] [place] [address] PCP - Assigned PCP 09/13/15 12/14/18 Heaven Brunson PA-C [facility] [address] [place] [address] PCP - General Physician Senior Marketing Manager 05/30/21 Andrez Krause PA-C [address] [place] [address] Assigned PCP 09/13/15 06/20/22 Mona Tian MD [address] [place] [address] Assigned OBGYN Provider 08/03/20 Brett oTrres MD [facility] [address] [facility] [address] [place] [address] Assigned Behavioral Health Provider 07/14/21 01/02/23 Karen Galvan PA-C [address] [place] [address] [place] [address] Assigned Sleep Provider 09/01/21 Marie Lawrence, [facility] [address] [address] Assigned MTM Pharmacist 04/05/22 documented as of this encounter
--- OUTSIDE RECORDS SUMMARY | 2023-10-19 14:44 | XMS_ITS | Encounter Summary ---
Author Name Unknown Organization [place] Address [address] [place] [address] Care Team Providers Care Gas Operations Analyst Name Role Phone Andrez Krause PA-C Primary Care Provider Andrez Krause PA-C Unavailable + [phone] Andrez Krause PA-C Unavailable + [phone] Mona Tian MD Unavailable [phone] Heaven Brunson PA-C Primary Care Provider Brett Torres MD Unavailable [phone] Karen Galvan PA-C Unavailable [phone] Marie Lawrence [facility] Unavailable [phone] Encounter Details Date Type Department Care Team (Late st Contact Info) Description 06/11/2016 MyC Medical Advice [address], [address] [place] [address] Josefina Diop, ACADEMIC REGISTRAR INSPECTOR PACKER GLASS CONTAINER Social History Tobacco Use Types Packs/Day Years Used Date Smoking Tobacco: Never Smokeless Tobacco: Never Alcohol Use Standard Drinks/Week Comments Yes 0 (1 standard drink = 0.6 oz pur e alcohol) socially Sex and Gender Information Value Date Recorded Sex Assigned at Female 11/04/2018 8:36 AM MACHINE SETTER AUTOMATIC Gender Identity Female 11/04/2018 8:36 AM MACHINE SETTER AUTOMATIC Sexual Orientation Straight 11/04/2018 8: 36 AM MACHINE SETTER AUTOMATIC documented as of this encounter Plan of Treatment Not on file documented as of this encounter Visit Diagnoses Not on filedocumented in this encounter Additional Health Concerns Assessment Noted Time PHQ-9 Depression Total Score: 25 04/23/ 016 7:14 AM CDT documented as of this encounter Care Teams Gas Operations Analyst Relationship Specialty Start Date End Date Andrez Krause PA-C PCP - General Physician Wound Nurse - Medical 10/09/15 05/29/21 Andrez Krause PA-C [address] [place] [address] PCP - Assigned PCP 09/13/15 12/14/18 Heaven Brunson PA-C [facility] [address] [place] [address] PCP - General Physician Wound Nurse 05/30/21 Andrez Krause PA-C [address] [place] [address] Assigned PCP 09/13/15 06/20/22 Mnoa Tian MD [address] [place] [address] Assigned OBGYN Provider 08/03/20 Brett Torres [facility] [address] [facility] [address] [place], [place] [address] Assigned Behavioral Health Provider 07/14/21 01/02/23 Karen Galvan PA-C [address] [place] [address] [place] [address] Assigned Sleep Provider 09/01/21 Marie Lawrence [facility] [address] [address] Assigned MTM Pharmacist 04/05/22 documented as of this encounter
--- OUTSIDE RECORDS SUMMARY | 2023-10-19 14:44 | XMS_ITS | Encounter Summary ---
Author Name Unknown Organization [place] Address [address] [place] [address] Care Team Providers Care Layup Worker Name Role Phone Andrez Krause PA-C Primary Care Provider Andrez Krause PA-C Unavailable + [phone] Andrez Krause PA-C Unavailable + [phone] Mona Tian MD Unavailable +[phone] Heaven Brunson PA-C Primary Care Provider Brett Torres MD Unavailable +[phone] Karen Galvan PA-C Unavailable +[phone] Marie Lawrence [facility] Unavailable +[phone] Encounter Details Date Type Department Care Team (Late st Contact Info) Description 10/28/2017 MyC Medical Advice [address], [address] [place] [address] Marnie Mabry MA Social History Tobacco Use Types Packs/Day Years Used Date Smoking Tobacco: Never Smokeless Tobacco: Never Alcohol Use Standard Drinks/Week Comments Yes 0 (1 standard drink = 0.6 oz pur e alcohol) socially Sex and Gender Information Value Date Recorded Sex Assigned at Female 11/04/2018 8:36 AM PROGRAMMING COORDINATOR Gender Identity Female 11/04/2018 8:36 AM PROGRAMMING COORDINATOR Sexual Orientation Straight 11/04/2018 8: 36 AM PROGRAMMING COORDINATOR documented as of this encounter Plan of Treatment Not on file documented as of this encounter Visit Diagnoses Not on filedocumented in this encounter Additional Health Concerns Assessment Noted Time PHQ-9 Depression Total Score: 20 018 1:03 PM PROGRAMMING COORDINATOR documented as of this encounter Care Teams Layup Worker Relationship Specialty Start Date End Date Andrez Krause PA-C PCP - General Physician Marine Gear Keeper - Medical 10/09/15 05/29/21 Andrez Krause PA-C [address] [place] [address] PCP - Assigned PCP 09/13/15 12/14/18 Heaven Brunson PA-C [facility] [address] [place] [address] PCP - General Physician Marine Gear Keeper 05/30/21 Andrez Krause PA-C [address] [place] [address] Assigned PCP 09/13/15 06/20/22 Mona Tian MD [address] [place] [address] Assigned OBGYN Provider 08/03/20 Brett Torres [facility] [address] [facility] 255 [place] [address] Assigned Behavioral Health Provider 07/14/21 01/02/23 Karen Galvan PA-C [address] [place] [address] [place] [address] Assigned Sleep Provider 09/01/21 Marie Lawrence, [facility] [address] [address] Assigned MTM Pharmacist 04/05/22 documented as of this encounter
--- OUTSIDE RECORDS SUMMARY | 2023-10-19 14:44 | XMS_ITS | Encounter Summary ---
Author Name Unknown Organization [place] Address [address] [place] [address] Care Team Providers Care Lobby Porter Name Role Phone Andrez Krause PA-C Primary Care Provider Andrez Krause PA-C Unavailable + [phone] Andrez Krause PA-C Unavailable + [phone] Mona Tian MD Unavailable +[phone] Heaven Brunson PA-C Primary Care Provider Brett Torres MD Unavailable +[phone] Karen Galvan PA-C Unavailable [phone] Marie Lawrence [facility] Unavailable +[phone] Reason for Visit * Reason Comments Medication Refill gabapentin (NEURONTI N) 100 MG capsule Encounter Details Date Type Department Care Team (Late st Contact Info) Description 01/16/[address], [address] [place] [address] Andrez Krause PA-C [address] [place] [address] Medication Refill (gabapentin (NEURONTIN) 100 MG capsule) Social History Tobacco Use Types Packs/Day Years Used Date Smoking Tobacco: Never Smokeless Tobacco: Never Alcohol Use Standard Drinks/Week Comments Yes 0 (1 standard drink = 0.6 oz pur e alcohol) socially Sex and Gender Information Value Date Recorded Sex Assigned at Female 11/04/2018 8:36 AM DIESEL INSTRUCTOR Gender Identity Female 11/04/2018 8:36 AM DIESEL INSTRUCTOR Sexual Orientation Straight 11/04/2018 8: 36 AM DIESEL INSTRUCTOR documented as of this encounter Miscellaneous Notes * Telephone Encounter - Denia Reddy - 01/17/2017 9:02 AM CDT gabapentin (NEURONTIN) 100 MG capsule Sig: Take 1 capsule (100 mg) by mouth At Bedtime Last Written Prescription Date: 12/18/16 Last Quantity: 30, # refills: 0 Last Office Visit with [facility] or Patient Home Monitoring prescribing provider: 01/15/2017 Creatinine Date Value Ref Range Status 04/22/2016 0.99 0.52 - 1.04 mg/dL Final No results found for: AST No results found for: ALT BP Readings from Last 3 Encounters: 01/15/17 114/67 12/19/16 114/67 12/18/16 102/60 Associated Diagnoses Migraine without aura and without status migrainosus, not intractable [G43.009] ??- Primary Routing refill request to provider for review/approval because: Drug not on the [facility] or Patient Home Monitoring refill protocol or controlled substance TAVO Cesar January 17, 2017 9:02 AM documented in this encounter Plan of Treatment Not on file documented as of this encounter Visit Diagnoses Diagnosis Migraine without aura and without status migrainosus, not intractable Migraine without aura, without mention of intractable migraine without mention of status migrainosus documented in this encounter Additional Health Concerns Assessment Noted Time PHQ-9 Depression Total Score: 24 017 7:05 AM DIESEL INSTRUCTOR documented as of this encounter Care Teams Lobby Porter Relationship Specialty Start Date End Date Andrez Krause PA-C PCP - General Physician Serging Machine Operator - Medical 10/09/15 05/29/21 Andrez Krause PA-C [address] [place] [address] PCP - Assigned PCP 09/13/15 12/14/18 Heaven Brunson PA-C [facility] [address] [place] [address] PCP - General Physician Serging Machine Operator 05/30/21 Andrez Krause PA-C [address] [facility] [address] Assigned PCP 09/13/15 06/20/22 Mona Tian MD [address] [place] [address] Assigned OBGYN Provider 08/03/20 Brett Torres [facility] [address] [facility] 255 [place] [address] Assigned Behavioral Health Provider 07/14/21 01/02/23 Karen Galvan PA-C [address] [facility] [address] [place] [address] Assigned Sleep Provider 09/01/21 Marie Lawrence, [facility] [place] [facility] 57[address] [facility] 200 [place], [place] [id number] Assigned MTM Pharmacist 04/05/22 documented as of this encounter
--- OUTSIDE RECORDS SUMMARY | 2023-10-19 14:44 | XMS_ITS | Encounter Summary ---
Author Name Unknown Organization [place] Address [address] [place] [address] Care Team Providers Care Parole Hearing Officer Name Role Phone Andrez Krause PA-C Primary Care Provider Andrez Krause PA-C Unavailable + [phone] Andrez Krause PA-C Unavailable + [phone] Mona Tian MD Unavailable +[phone] Heaven Brunson PA-C Primary Care Provider Brett Torres MD Unavailable +[phone] Karen Galvan PA-C Unavailable [phone] Marie Lawrence [facility] Unavailable +[phone] Encounter Details Date Type Department Care Team (Late st Contact Info) Description 11/04/2017 MyC Medical Advice [address], [address] [place] [address] Marnie Mabry MA Social History Tobacco Use Types Packs/Day Years Used Date Smoking Tobacco: Never Smokeless Tobacco: Never Alcohol Use Standard Drinks/Week Comments Yes 0 (1 standard drink = 0.6 oz pur e alcohol) socially Sex and Gender Information Value Date Recorded Sex Assigned at Female 11/04/2018 8:36 AM SCIENTIFIC ILLUSTRATOR Gender Identity Female 11/04/2018 8:36 AM SCIENTIFIC ILLUSTRATOR Sexual Orientation Straight 11/04/2018 8: 36 AM SCIENTIFIC ILLUSTRATOR documented as of this encounter Plan of Treatment Not on file documented as of this encounter Visit Diagnoses Not on filedocumented in this encounter Additional Health Concerns Assessment Noted Time PHQ-9 Depression Total Score: 19 018 9:18 AM SCIENTIFIC ILLUSTRATOR documented as of this encounter Care Teams Parole Hearing Officer Relationship Specialty Start Date End Date Andrez Krause PA-C PCP - General Physician Watch Engineer - Medical 10/09/15 05/29/21 Andrez Krause PA-C [address] [place] [address] PCP - Assigned PCP 09/13/15 12/14/18 Heaven Brunson PA-C [facility] [address] [place] [address] PCP - General Physician Watch Engineer 05/30/21 Andrez Krause PA-C [address] [place] [address] Assigned PCP 09/13/15 06/20/22 Mona Tian MD [address] [place] [address] Assigned OBGYN Provider 08/03/20 Brett Torres [facility] [address] [facility] 255 [place] [address] Assigned Behavioral Health Provider 07/14/21 01/02/23 Karen Galvan PA-C [address] [place] [address] [place] [address] Assigned Sleep Provider 09/01/21 Marie Lawrence, [facility] [address] [address] Assigned MTM Pharmacist 04/05/22 documented as of this encounter
--- OUTSIDE RECORDS SUMMARY | 2023-10-19 14:44 | XMS_ITS | Encounter Summary ---
Author Name Unknown Organization [place] Address [address] [place] [address] Care Team Providers Care Tomato Paste Maker Name Role Phone Andrez Krause PA-C Primary Care Provider Andrez Krause PA-C Unavailable + [phone] Andrez Krause PA-C Unavailable + [phone] Mona Tian MD Unavailable +[phone] Heaven Brunson PA-C Primary Care Provider Brett Torres MD Unavailable +[phone] Karen Galvan PA-C Unavailable [phone] Marie Lawrence [facility] Unavailable +[phone] Encounter Details Date Type Department Care Team (Late st Contact Info) Description 04/17/2017 MyC Medical Advice [address], [address] [place] [address] Nalini Conte RN Social History Tobacco Use Types Packs/Day Years Used Date Smoking Tobacco: Never Smokeless Tobacco: Never Alcohol Use Standard Drinks/Week Comments Yes 0 (1 standard drink = 0.6 oz pur e alcohol) socially Sex and Gender Information Value Date Recorded Sex Assigned at Female 11/04/2018 8:36 AM DISPATCHER RELAY Gender Identity Female 11/04/2018 8:36 AM DISPATCHER RELAY Sexual Orientation Straight 11/04/2018 8: 36 AM DISPATCHER RELAY documented as of this encounter Plan of Treatment Not on file documented as of this encounter Visit Diagnoses Not on filedocumented in this encounter Additional Health Concerns Assessment Noted Time PHQ-9 Depression Total Score: 11 017 7:20 AM CDT documented as of this encounter Care Teams Tomato Paste Maker Relationship Specialty Start Date End Date Andrez Krause PA-C PCP - General Physician Web Consultant - Medical 10/09/15 05/29/21 Andrez Krause [place] [address] [place] [address] PCP - Assigned PCP 09/13/15 12/14/18 Heaven Brunson PA-C [facility] [address] [place] [address] PCP - General Physician Web Consultant 05/30/21 Andrez Krause PA-C [address] [place] [address] Assigned PCP 09/13/15 06/20/22 Mona Tian MD [address] [place] [address] Assigned OBGYN Provider 08/03/20 Brett Torres [facility] [address] [address] Assigned Behavioral Health Provider 07/14/21 01/02/23 Karen Galvan PA-C [address] [place] [address] [place] [address] Assigned Sleep Provider 09/01/21 Marie Lawrence, [facility] [address] 4[address] Assigned MTM Pharmacist 04/05/22 documented as of this encounter
--- OUTSIDE RECORDS SUMMARY | 2023-10-19 14:44 | XMS_ITS | Encounter Summary ---
Author Name Unknown Organization [place] Address [address] [place] [address] Care Team Providers Care Cloth Mender Name Role Phone Andrez Krause PA-C Primary Care Provider Andrez Krause PA-C Unavailable + [phone] Andrez Krause PA-C Unavailable + [phone] Mona Tian MD Unavailable +[phone] Heaven Brunson PA-C Primary Care Provider Brett Torres MD Unavailable [phone] Karen Galvan PA-C Unavailable [phone] Marie Lawrence [facility] Unavailable +[phone] Reason for Visit * Reason Onset Date Comments Medication Problem 02/13/2016 Lexapro Encounter Details Date Type Department Care Team (Late st Contact Info) Description 02/13/2016 MyC Medical Advice [address], [address] [place] [address] Andrez Kruase PA-C [address] [place] [address] Medication Problem (Lexapro) Social History Tobacco Use Types Packs/Day Years Used Date Smoking Tobacco: Never Alcohol Use Standard Drinks/Week Comments Yes 0 (1 standard drink = 0.6 oz pur e alcohol) Sex and Gender Information Value Date Recorded Sex Assigned at Female 11/04/2018 8:36 AM GEOTHERMAL PRODUCTION MANAGER Gender Identity Female 11/04/2018 8:36 AM GEOTHERMAL PRODUCTION MANAGER Sexual Orientation Straight 11/04/2018 8: 36 AM GEOTHERMAL PRODUCTION MANAGER documented as of this encounter Plan of Treatment Not on file documented as of this encounter Visit Diagnoses Not on filedocumented in this encounter Additional Health Concerns Assessment Noted Time PHQ-9 Depression Total Score: 21 016 9:30 AM CDT documented as of this encounter Care Teams Cloth Mender Relationship Specialty Start Date End Date Andrez Krause PA-C PCP - General Physician Dry Cure Worker - Medical 10/09/15 05/29/21 Andrez Krause PA-C [address] [place] [address] PCP - Assigned PCP 09/13/15 12/14/18 Heaven Brunson PA-C [facility] [address] [address] PCP - General Physician Dry Cure Worker 05/30/21 Andrez Krause PA-C [address] [place] [address] Assigned PCP 09/13/15 06/20/22 Mona Tian MD [address] [place] [address] Assigned OBGYN Provider 08/03/20 Brett Torres [facility] [address] [place] [address] Assigned Behavioral Health Provider 07/14/21 01/02/23 Karen Galvan PA-C [address] [place] [place] [address] Assigned Sleep Provider 09/01/21 Marie Lawrence, [facility] 5775 [facility] 200 [place], [place] [address] Assigned MTM Pharmacist 04/05/22 documented as of this encounter
--- OUTSIDE RECORDS SUMMARY | 2023-10-19 14:44 | XMS_ITS | Encounter Summary ---
Author Name Unknown Organization [place] Address [address] [place] [address] Care Team Providers Care Barrel Straightener Name Role Phone Andrez Krause PA-C Primary Care Provider Andrez Krause PA-C Unavailable + [phone] Andrez Krause PA-C Unavailable + [phone] Mona Tian MD Unavailable +[phone] Heaven Brunson PA-C Primary Care Provider Brett Torres MD Unavailable +[phone] Karen Galvan PA-C Unavailable [phone] Marie Lawrence [facility] Unavailable +[phone] Reason for Visit * Reason Onset Date Comments MyChart Communication 10/22/2016 PHQ-9, due for depression follow up Encounter Details Date Type Department Care Team (Latest Contact Info) Description 10/22/2016 MyC Medical Advice [address], [address] [place] [address] Marnie Mabry MA MyChart Communication (PHQ-9, due for depr... Social History Tobacco Use Types Packs/Day Years Used Date Smoking Tobacco: Never Smokeless Tobacco: Never Alcohol Use Standard Drinks/Week Comments Yes 0 (1 standard drink = 0.6 oz pur e alcohol) socially Sex and Gender Information Value Date Recorded Sex Assigned at Female 11/04/2018 8:36 AM LIVESTOCK SPECULATOR Gender Identity Female 11/04/2018 8:36 AM LIVESTOCK SPECULATOR Sexual Orientation Straight 11/04/2018 8: 36 AM LIVESTOCK SPECULATOR documented as of this encounter Plan of Treatment Not on file documented as of this encounter Visit Diagnoses Not on filedocumented in this encounter Additional Health Concerns Assessment Noted Time PHQ-9 Depression Total Score: 21 016 7:20 AM CDT documented as of this encounter Care Teams Barrel Straightener Relationship Specialty Start Date End Date Andrez Krause PA-C PCP - General Physician Vamp Wetter - Medical 10/09/15 05/29/21 Andrez Krause PA-C [address] [place] [address] PCP - Assigned PCP 09/13/15 12/14/18 Heaven Brunson PA-C [facility] [address] [place] [address] PCP - General Physician Vamp Wetter 05/30/21 Andrez Krause PA-C [address] [place] [address] Assigned PCP 09/13/15 06/20/22 Mona Tian MD [address] [place], [place] 44[address] Assigned OBGYN Provider 08/03/20 Brett Torres [facility] [address] [facility] [address] [place], [place] [address] Assigned Behavioral Health Provider 07/14/21 01/02/23 Karen Galvan PA-C [address] [facility] [address] [address] Assigned Sleep Provider 09/01/21 Marie Lawrence, [facility] 5775 [facility] 200 [place], [place] [address] Assigned MTM Pharmacist 04/05/22 documented as of this encounter
--- OUTSIDE RECORDS SUMMARY | 2023-10-19 14:44 | XMS_ITS | Encounter Summary ---
Author Name Unknown Organization [place] Address [address] [place] [address] Care Team Providers Care Potato Grader Name Role Phone Andrez Krause PA-C Primary Care Provider Andrez Krause PA-C Unavailable + [phone] Andrez Krause PA-C Unavailable + [phone] Mona Tian MD Unavailable +[phone] eHaven Brunson PA-C Primary Care Provider Brett Torres MD Unavailable +[phone] Karen Galvan PA-C Unavailable [phone] Marie Lawrence [facility] Unavailable +[phone] Reason for Visit * Reason Onset Date Comments Refill Request 07/01/2017 Methylphenidate Encounter Details Date Type Department Care Team (Late st Contact Info) Description 07/01/2017 MyC Medical Advice [address], [address] [place] [address] Andrez Krause PA-C [address] [place] [address] Refill Request (Methylphenidate) Social History Tobacco Use Types Packs/Day Years Used Date Smoking Tobacco: Never Smokeless Tobacco: Never Alcohol Use Standard Drinks/Week Comments Yes 0 (1 standard drink = 0.6 oz pur e alcohol) socially Sex and Gender Information Value Date Recorded Sex Assigned at Female 11/04/2018 8:36 AM AEROSPACE PRODUCTS SALES ENGINEER Gender Identity Female 11/04/2018 8:36 AM AEROSPACE PRODUCTS SALES ENGINEER Sexual Orientation Straight 11/04/2018 8: 36 AM AEROSPACE PRODUCTS SALES ENGINEER documented as of this encounter Miscellaneous Notes * Telephone Encounter - Nalini Conte RN - 07/01/2017 3:17 PM CDT Methylphenidate Last Written Prescription Date: 03/31/2017 Last Fill Quantity: 75, # refills: 0 Last Office Visit with [facility] or [facility] prescribing provider: 06/01/2017 Future Office visit: Next 5 appointments (look out 90 days) Jul 06, 2017 3:20 PM CDT Cotyt Amanuel with Andrez Krause PA-C [facility] [address] [place] [address] Routing refill request to provider for review/approval because: Drug not on the [facility], [facility] or [facility] refill protocol or controlled substance. AITCHBONE BREAKER checked 07/01/2017: 05/19/2017 GABAPENTIN 300 MG CAPSULE 60.00 05/04/2017 METHYLPHENIDATE 5 MG TABLET 75.00 04/23/2017 GABAPENTIN 100 MG CAPSULE 90.00 02/21/2017 METHYLPHENIDATE 5 MG TABLET 75.00 01/18/2017 GABAPENTIN 100 MG CAPSULE 30.00 01/16/2017 METHYLPHENIDATE 5 MG TABLET 60.00 12/19/2016 METHYLPHENIDATE 5 MG TABLET 60.00 12/18/2016 GABAPENTIN 100 MG CAPSULE 30.00 Nalini Conte RN documented in this encounter Plan of Treatment Not on file documented as of this encounter Visit Diagnoses Diagnosis Severe episode of recurrent major depressive disorder, without psychotic features (H) Decreased energy Other malaise and fatigue documented in this encounter Additional Health Concerns Assessment Noted Time PHQ-9 Depression Total Score: 26 017 4:08 PM CDT documented as of this encounter Care Teams Potato Grader Relationship Specialty Start Date End Date Andrez Krause PA-C PCP - General Physician Rolling Machine Operator - Medical 10/09/15 05/29/21 Andrez Krause PA-C [address] [place] [address] PCP - Assigned PCP 09/13/15 12/14/18 Heaven Brunson PA-C [facility] [address] [place] [address] PCP - General Physician Rolling Machine Operator 05/30/21 Andrez Krause PA-C [address] [address] Assigned PCP 09/13/15 06/20/22 Mona Tian MD [address] [place], [place] [address] Assigned OBGYN Provider 08/03/20 Brett Torres [facility] [address] [facility] 255 [place], [place] [address] Assigned Behavioral Health Provider 07/14/21 01/02/23 Karen Galvan PA-C [address] [facility] [address] [place], [place] [address] Assigned Sleep Provider 09/01/21 Marie Lawrence, [facility] 5775 [facility] 200 [place], [place] [address] Assigned MTM Pharmacist 04/05/22 documented as of this encounter
--- OUTSIDE RECORDS SUMMARY | 2023-10-19 14:44 | XMS_ITS | Encounter Summary ---
Author Name Unknown Organization [place] Address [address] [place] [address] Care Team Providers Care Software Developer Manager Name Role Phone Andrez Krause PA-C Primary Care Provider Andrez Krause PA-C Unavailable + [phone] Andrez Krause PA-C Unavailable + [phone] Mona Tian MD Unavailable +[phone] Heaven Brunson PA-C Primary Care Provider Brett Torres MD Unavailable +[phone] Karen Galvan PA-C Unavailable [phone] Marie Lawrence [facility] Unavailable +[phone] Reason for Visit * Reason Onset Date Comments Forms 04/08/2017 FMLA Encounter Details Date Type Department Care Team (Late st Contact Info) Description 04/08/2017 MyC Medical Advice [address], [address] [place] [address] Andrez Krause PA-C [address] [place] [address] Forms (FMLA) Social History Tobacco Use Types Packs/Day Years Used Date Smoking Tobacco: Never Smokeless Tobacco: Never Alcohol Use Standard Drinks/Week Comments Yes 0 (1 standard drink = 0.6 oz pur e alcohol) socially Sex and Gender Information Value Date Recorded Sex Assigned at Female 11/04/2018 8:36 AM ELECTRICAL ENGINEERING DRAFTING OFFICER Gender Identity Female 11/04/2018 8:36 AM ELECTRICAL ENGINEERING DRAFTING OFFICER Sexual Orientation Straight 11/04/2018 8: 36 AM ELECTRICAL ENGINEERING DRAFTING OFFICER documented as of this encounter Plan of Treatment Not on file documented as of this encounter Visit Diagnoses Not on filedocumented in this encounter Additional Health Concerns Assessment Noted Time PHQ-9 Depression Total Score: 11 017 7:20 AM CDT documented as of this encounter Care Teams Software Developer Manager Relationship Specialty Start Date End Date Andrez Krause PA-C PCP - General Physician Reading Aide - Medical 10/09/15 05/29/21 Andrez Krause PA-C [address] [place] [address] PCP - Assigned PCP 09/13/15 12/14/18 Heaven Brunson PA-C [facility] [address] [place] [address] PCP - General Physician Reading Aide 05/30/21 Andrez Krause PA-C [address] [facility] [place] [address] Assigned PCP 09/13/15 06/20/22 Mona Tian MD [address] [place] [address] Assigned OBGYN Provider 08/03/20 Brett Torres [facility] [address] [place] [address] Assigned Behavioral Health Provider 07/14/21 01/02/23 Karen Galvan PA-C [address] [facility] 103 [place] [address] Assigned Sleep Provider 09/01/21 Marie Lawrence, [facility] 5775 [facility] 200 [place], [place] [address] Assigned MTM Pharmacist 04/05/22 documented as of this encounter
--- OUTSIDE RECORDS SUMMARY | 2023-10-19 14:44 | XMS_ITS | Encounter Summary ---
Author Name Unknown Organization [place] Address [address] [place] [address] Care Team Providers Care Air Conditioning Manager Name Role Phone Andrez Krause PA-C Primary Care Provider Andrez Krause PA-C Unavailable + [phone] Andrez Krause PA-C Unavailable + [phone] Mona Tian MD Unavailable +[phone] Heaven Brunson PA-C Primary Care Provider Brett Torres MD Unavailable +[phone] Karen Galvan PA-C Unavailable +[phone] Marie Lawrence [facility] Unavailable +[phone] Reason for Visit * Reason Onset Date Comments Infection 03/03/2016 Tonsil Encounter Details Date Type Department Care Team (Late st Contact Info) Description 03/03/2016 MyC Medical Advice [address], [address] [place] [address] Andrez Krause PA-C [address] [place] [address] Infection (Tonsil) Social History Tobacco Use Types Packs/Day Years Used Date Smoking Tobacco: Never Alcohol Use Standard Drinks/Week Comments Yes 0 (1 standard drink = 0.6 oz pur e alcohol) socially Sex and Gender Information Value Date Recorded Sex Assigned at Female 11/04/2018 8:36 AM BATTERY CONTAINER TESTER ALUMINUM Gender Identity Female 11/04/2018 8:36 AM BATTERY CONTAINER TESTER ALUMINUM Sexual Orientation Straight 11/04/2018 8: 36 AM BATTERY CONTAINER TESTER ALUMINUM documented as of this encounter Plan of Treatment Not on file documented as of this encounter Visit Diagnoses Not on filedocumented in this encounter Additional Health Concerns Assessment Noted Time PHQ-9 Depression Total Score: 21 01/08/ 016 9:30 AM CDT documented as of this encounter Care Teams Air Conditioning Manager Relationship Specialty Start Date End Date Andrez Krause PA-C PCP - General Physician Haul Truck Driver - Medical 10/09/15 05/29/21 Andrez Krause PA-C [address] [place] [address] PCP - Assigned PCP 09/13/15 12/14/18 Heaven Brunson PA-C [facility] [address] [place] [address] PCP - General Physician Haul Truck Driver 05/30/21 Andrez Krause PA-C [address] [place] [address] Assigned PCP 09/13/15 06/20/22 Mona Tian MD [address] [place] [address] Assigned OBGYN Provider 08/03/20 Brett [facility] [id number] [place] [address] Assigned Behavioral Health Provider 07/14/21 01/02/23 Karen Galvan PA-C [address] [place] [address] Assigned Sleep Provider 09/01/21 Marie Lawrence, [facility] [facility] 5775 [facility] 200 [place], [place] [address] Assigned MTM Pharmacist 04/05/22 documented as of this encounter
--- OUTSIDE RECORDS SUMMARY | 2023-10-19 14:44 | XMS_ITS | Encounter Summary ---
Author Name Unknown Organization [place] Address [address] [place] [address] Care Team Providers Care Speeder Worker Name Role Phone Andrez Krause PA-C Primary Care Provider Andrez Krause PA-C Unavailable + [phone] Andrez Krause PA-C Unavailable + [phone] Mona Tian MD Unavailable +[phone] Heaven Brunson PA-C Primary Care Provider Brett Torres MD Unavailable +[phone] Karen Galvan PA-C Unavailable [phone] Marie Lawrence [facility] Unavailable +[phone] Encounter Details Date Type Department Care Team (Late st Contact Info) Description 10/30/2017 MyC Medical Advice [address], [address] [place] [address] Geraldine Chavarria, RN Social History Tobacco Use Types Packs/Day Years Used Date Smoking Tobacco: Never Smokeless Tobacco: Never Alcohol Use Standard Drinks/Week Comments Yes 0 (1 standard drink = 0.6 oz pur e alcohol) socially Sex and Gender Information Value Date Recorded Sex Assigned at Female 11/04/2018 8:36 AM DIAMOND CLEANER Gender Identity Female 11/04/2018 8:36 AM DIAMOND CLEANER Sexual Orientation Straight 11/04/2018 8: 36 AM DIAMOND CLEANER documented as of this encounter Plan of Treatment Not on file documented as of this encounter Visit Diagnoses Not on filedocumented in this encounter Additional Health Concerns Assessment Noted Time PHQ-9 Depression Total Score: 19 018 9:18 AM DIAMOND CLEANER documented as of this encounter Care Teams Speeder Worker Relationship Specialty Start Date End Date Andrez Krause PA-C PCP - General Physician Security Auditor - Medical 10/09/15 05/29/21 Andrez Krause PA-C [address] [place] [address] PCP - Assigned PCP 09/13/15 12/14/18 Heaven Brunson PA-C [facility] [address] [place] [address] PCP - General Physician Security Auditor 05/30/21 Andrez Krause PA-C [address] [place] [address] Assigned PCP 09/13/15 06/20/22 Mona Tian MD [address] [place] [address] Assigned OBGYN Provider 08/03/20 Brett Torres [facility] [address] [facility] 255 [place] [address] Assigned Behavioral Health Provider 07/14/21 01/02/23 Karen Galvan PA-C [address] [place] [address] [place] [address] Assigned Sleep Provider 09/01/21 Marie Lawrence, [facility] [address] [address] Assigned MTM Pharmacist 04/05/22 documented as of this encounter
--- OUTSIDE RECORDS SUMMARY | 2023-10-19 14:44 | XMS_ITS | Encounter Summary ---
Author Name Unknown Organization [place] Address [address] [place] [address] Care Team Providers Care Product Distribution Specialist Name Role Phone Andrez Krause PA-C Primary Care Provider Andrez Krause PA-C Unavailable + [phone] Andrez Krause PA-C Unavailable + [phone] Mona Tian MD Unavailable +[phone] Heaven Brunson PA-C Primary Care Provider Brett Torres MD Unavailable [phone] Karen Galvan PA-C Unavailable [phone] Marie Lawrence [facility] Unavailable +[phone] Encounter Details Date Type Department Care Team (Late st Contact Info) Description 12/31/2015 MyC Medical Advice [address], [address] [place] [address] Brittani Caraballo, RN Social History Tobacco Use Types Packs/Day Years Used Date Smoking Tobacco: Never Alcohol Use Standard Drinks/Week Comments Yes 0 (1 standard drink = 0.6 oz pur e alcohol) Sex and Gender Information Value Date Recorded Sex Assigned at Female 11/04/2018 8:36 AM IVORY CARVER Gender Identity Female 11/04/2018 8:36 AM IVORY CARVER Sexual Orientation Straight 11/04/2018 8: 36 AM IVORY CARVER documented as of this encounter Plan of Treatment Not on file documented as of this encounter Visit Diagnoses Not on filedocumented in this encounter Additional Health Concerns Assessment Noted Time PHQ-9 Depression Total Score: 21 12/31/2 016 8:26 AM CDT documented as of this encounter Care Teams Product Distribution Specialist Relationship Specialty Start Date End Date Andrez Krause PA-C PCP - General Physician Photography Professor - Medical 10/09/15 05/29/21 Andrez Krause PA-C [address] [place] [address] PCP - Assigned PCP 09/13/15 12/14/18 Heaven Brunson PA-C [facility] [address] [place] [address] PCP - General Physician Photography Professor 05/30/21 Andrez Krause PA-C [address] [place] [address] Assigned PCP 09/13/15 06/20/22 Mona Tian MD [address] [place] [address] Assigned OBGYN Provider 08/03/20 Brett Torres [facility] [address] [facility] 255 [place] [address] Assigned Behavioral Health Provider 07/14/21 01/02/23 Karen Galvan PA-C [address] [facility] [address] [address] Assigned Sleep Provider 09/01/21 Marie Lawrence, [facility] [address] [address] Assigned MTM Pharmacist 04/05/22 documented as of this encounter
--- OUTSIDE RECORDS SUMMARY | 2023-10-19 14:44 | XMS_ITS | Encounter Summary ---
Author Name Unknown Organization [place] Address [address] [place] [address] Care Team Providers Care Laundry Superintendent Name Role Phone Andrez Krause PA-C Primary Care Provider Andrez Krause PA-C Unavailable +[phone] Andrez Krause PA-C Unavailable +[phone] Mona Tian MD Unavailable [phone] Heaven Brunson PA-C Primary Care Provider Brett Torres MD Unavailable [phone] Karen Galvan PA-C Unavailable [phone] Marie Lawrence [facility] Unavailable +[phone] Encounter Details Date Type Department Care Team (Latest Contact Info) Description 02/19/2017 Historic Results Social History Tobacco Use Types Packs/Day Years Used Date Smoking Tobacco: Never Smokeless Tobacco: Never Alcohol Use Standard Drinks/Week Comments Yes 0 (1 standard drink = 0.6 oz pur e alcohol) socially Sex and Gender Information Value Date Recorded Sex Assigned at Female 11/04/2018 8:36 AM MANAGER BANK Gender Identity Female 11/04/2018 8:36 AM MANAGER BANK Sexual Orientation Straight 11/04/2018 8: 36 AM MANAGER BANK documented as of this encounter Plan of Treatment Not on file documented as of this encounter Visit Diagnoses Not on filedocumented in this encounter Additional Health Concerns Assessment Noted Time PHQ-9 Depression Total Score: 11 017 7:20 AM CDT documented as of this encounter Care Teams Laundry Superintendent Relationship Specialty Start Date End Date Andrez Krause PA-C PCP - General Physician Low Emission Automobile Designer - Medical 10/09/15 05/29/21 Andrez Krause PA-C [address] [place] [address] PCP - Assigned PCP 09/13/15 12/14/18 Heaven Brunson PA-C [facility] [address] [place], [place] [address] PCP - General Physician Low Emission Automobile Designer 05/30/21 Andrez Krause PA-C [address] [facility] [place] [address] Assigned PCP 09/13/15 06/20/22 Mona Tian MD [address] [place], [place] [address] Assigned OBGYN Provider 08/03/20 Brett Torres [facility] 6[facility] [facility] 255 [place], [place] [address] Assigned Behavioral Health Provider 07/14/21 01/02/23 Karen Galvan PA-C [address] [facility] 103 [place], [place] [address] Assigned Sleep Provider 09/01/21 Marie Lawrence, [facility] 5775 [facility] 200 [place], [place] [id number] Assigned MTM Pharmacist 04/05/22 documented as of this encounter
--- OUTSIDE RECORDS SUMMARY | 2023-10-19 14:44 | XMS_ITS | Encounter Summary ---
Author Name Unknown Organization [place] Address [address] [place] [address] Care Team Providers Care Embroidery Supervisor Name Role Phone Andrez Krause PA-C Primary Care Provider Andrez Krause PA-C Unavailable + [phone] Andrez Krause PA-C Unavailable + [phone] Mona Tian MD Unavailable +[phone] Heaven Brunson PA-C Primary Care Provider Brett Torres MD Unavailable +[phone] Karen Galvan PA-C Unavailable [phone] Marie Lawrence [facility] Unavailable +[phone] Reason for Visit * Reason Onset Date Comments Refill Request 01/02/2016 Imitrex Encounter Details Date Type Department Care Team (Late st Contact Info) Description 01/02/2016 MyC Refill [address], [address] [place] [address] Andrez Krause PA-C [address] [place] [address] Refill Request (Imitrex) Social History Tobacco Use Types Packs/Day Years Used Date Smoking Tobacco: Never Alcohol Use Standard Drinks/Week Comments Yes 0 (1 standard drink = 0.6 oz pur e alcohol) Sex and Gender Information Value Date Recorded Sex Assigned at Female 11/04/2018 8:36 AM AUTOMOTIVE GENERATOR REPAIRER Gender Identity Female 11/04/2018 8:36 AM AUTOMOTIVE GENERATOR REPAIRER Sexual Orientation Straight 11/04/2018 8: 36 AM AUTOMOTIVE GENERATOR REPAIRER documented as of this encounter Miscellaneous Notes * Telephone Encounter - Nalini Conte RN - 01/04/2016 1:48 PM CDT Medication is being filled for 1 time refill only due to: Patient needs Creatinine-patient has appointment next week. Nalini Conte RN * Telephone Encounter - Nalini Conte RN - 01/02/2016 8:21 AM CDT Imitrex Last Written Prescription Date: 11/23/2015 Last Fill Quantity: 9, # refills: 1 Last Office Visit with [facility] prescribing provider: 11/23/2015 Next 5 appointments (look out 90 days) Jan 08, 2016 4:30 PM Anastasiya Long with Andrez Krause PA-C [facility] [address] [place] [address] BP Readings from Last 3 Encounters: 11/23/15 102/64 10/09/15 110/64 No results found for: CR RX already filled 11/23/2015. Message sent to patient to see if she filled it. Nalini Conte RN * Telephone Encounter - Nalini Conte RN - 01/02/2016 8:20 AM CDTMessage from MyChart: Original authorizing provider: LUIS ANTONIO Molina would like a refill of the following medications: SUMAtriptan (IMITREX) 100 MG tablet [Andrez Krause PA-C] Preferred pharmacy: [id number] [id number] [place] [address] Comment: documented in this encounter Plan of Treatment Not on file documented as of this encounter Visit Diagnoses Diagnosis Migraine without aura and without status migrainosus, not intractable Migraine without aura, without mention of intractable migraine without mention of status migrainosus documented in this encounter Additional Health Concerns Assessment Noted Time PHQ-9 Depression Total Score: 016 8:26 AM CDT documented as of this encounter Care Teams Embroidery Supervisor Relationship Specialty Start Date End Date Andrez Krause PA-C PCP - General Physician Senior Project Controls Specialist - Medical 10/09/15 05/29/21 Andrez Krause PA-C [address] [place] [address] PCP - Assigned PCP 09/13/15 12/14/18 Heaven Brunson PA-C [facility] [address] [place] [address] PCP - General Physician Senior Project Controls Specialist 05/30/21 Andrez Krause PA-C [address] [place] [address] Assigned PCP 09/13/15 06/20/22 Mona Tian MD [address] [place], [place] [address] Assigned OBGYN Provider 08/03/20 Brett Torres [facility] [address] [facility] 255 [place], [place] [address] Assigned Behavioral Health Provider 07/14/21 01/02/23 Karen Galvan PA-C [address] [address] Assigned Sleep Provider 09/01/21 Marie Lawrence, [facility] 5775 [facility] 200 [place] [address] Assigned MTM Pharmacist 04/05/22 documented as of this encounter
--- OUTSIDE RECORDS SUMMARY | 2023-10-19 14:44 | XMS_ITS | Encounter Summary ---
Author Name Unknown Organization [place] Address [address] [place] [address] Care Team Providers Care Associate Professor Of Mathematics Name Role Phone Andrez Krause PA-C Primary Care Provider Andrez Krause PA-C Unavailable + [phone] Andrez Krause PA-C Unavailable + [phone] Mona Tian MD Unavailable +[phone] Heaven Brunson PA-C Primary Care Provider Brett Torres MD Unavailable [phone] Karen Galvan PA-C Unavailable [phone] Marie Lawrence [facility] Unavailable +[phone] Reason for Visit * Reason Onset Date Comments Refill Request 12/11/2015 Zoloft, Imitrex Encounter Details Date Type Department Care Team (Late st Contact Info) Description 12/11/[address], [address] [place] [address] Andrez Krause PA-C [address] [place] [address] Refill Request (Zoloft, Imitrex) Social History Tobacco Use Types Packs/Day Years Used Date Smoking Tobacco: Never Alcohol Use Standard Drinks/Week Comments Yes 0 (1 standard drink = 0.6 oz pur e alcohol) Sex and Gender Information Value Date Recorded Sex Assigned at Female 11/04/2018 8:36 AM MEDIA CONSULTANT OUTSIDE SALES Gender Identity Female 11/04/2018 8:36 AM MEDIA CONSULTANT OUTSIDE SALES Sexual Orientation Straight 11/04/2018 8: 36 AM MEDIA CONSULTANT OUTSIDE SALES documented as of this encounter Miscellaneous Notes * Telephone Encounter - Nalini Conte RN - 12/11/2015 10:43 AM CST Rx's already filled 11/23/2015 at [facility]. Nalini Conte RN A CONSULTANT OUTSIDE SALES * Telephone Encounter - Nalini Conte RN - 12/11/2015 10:43 AM CSTMessage from MyChart: Original authorizing provider: LUIS ANTONIO Molina would like a refill of the following medications: sertraline (ZOLOFT) 50 MG tablet [Andrez Krause PA-C] SUMAtriptan (IMITREX) 100 MG tablet [Andrez Krause PA-C] Preferred pharmacy: [id number] - [place], [place] - [address] [address] Comment: A CONSULTANT OUTSIDE SALES documented in this encounter Plan of Treatment Not on file documented as of this encounter Visit Diagnoses Diagnosis Adjustment disorder with mixed anxiety and depressed mood Migraine without aura and without status migrainosus, not intractable Migraine without aura, without mention of intractable migraine without mention of status migrainosus documented in this encounter Additional Health Concerns Assessment Noted Time PHQ-9 Depression Total Score: 7 11/24/19 16 8:21 AM MEDIA CONSULTANT OUTSIDE SALES documented as of this encounter Care Teams Associate Professor Of Mathematics Relationship Specialty Start Date End Date Andrez Krause PA-C PCP - General Physician Beet Worker - Medical 10/09/15 05/29/21 Andrez Krause PA-C [address] [place] [address] PCP - Assigned PCP 09/13/15 12/14/18 Heaven Brunson PA-C [facility] [address] [place] [address] PCP - General Physician Beet Worker 05/30/21 Andrez Krause PA-C [address] [facility] [address] Assigned PCP 09/13/15 06/20/22 Mona Tian MD [address] [place], [place] [address] Assigned OBGYN Provider 08/03/20 Brett Torres [facility] [address] [facility] 255 [place], [place] [address] Assigned Behavioral Health Provider 07/14/21 01/02/23 Karen Galvan PA-C [address] [facility] [address] [place], [place] [address] Assigned Sleep Provider 09/01/21 Marie Lawrence [facility] 5775 [facility] 200 [place], [place] [address] Assigned MTM Pharmacist 04/05/22 documented as of this encounter
--- OUTSIDE RECORDS SUMMARY | 2023-10-19 14:44 | XMS_ITS | Encounter Summary ---
Author Name Unknown Organization [place] Address [address] [place] [address] Care Team Providers Care Infection Prevention Coordinator Name Role Phone Andrez Krause PA-C Primary Care Provider Andrez Krause PA-C Unavailable + [phone] Andrez Krause PA-C Unavailable + [phone] Mona Tian MD Unavailable +[phone] Heaven Brunson PA-C Primary Care Provider Brett Torres MD Unavailable [phone] Karen Galvan PA-C Unavailable [phone] Marie Lawrence [facility] Unavailable +[phone] Reason for Visit * Reason Onset Date Comments Refill Request 11/19/2017 Imitrex tablets Encounter Details Date Type Department Care Team (Late st Contact Info) Description 11/19/2017 MyC Medical Advice [address], [address] [place] [address] Andrez Krause PA-C [address] [place] [address] Refill Request (Imitrex tablets) Social History Tobacco Use Types Packs/Day Years Used Date Smoking Tobacco: Never Smokeless Tobacco: Never Alcohol Use Standard Drinks/Week Comments Yes 0 (1 standard drink = 0.6 oz pur e alcohol) socially Sex and Gender Information Value Date Recorded Sex Assigned at Female 11/04/2018 8:36 AM DIE MAKER TRIM Gender Identity Female 11/04/2018 8:36 AM DIE MAKER TRIM Sexual Orientation Straight 11/04/2018 8: 36 AM DIE MAKER TRIM documented as of this encounter Miscellaneous Notes * Telephone Encounter - Nalini Conte RN - 11/19/2017 3:48 PM CST Looks like SUMAtriptan (IMITREX) 100 MG tablet #9 was sent to pharmacy. Nalini Conte RN MAKER TRIM documented in this encounter Plan of Treatment Not on file documented as of this encounter Visit Diagnoses Not on filedocumented in this encounter Additional Health Concerns Assessment Noted Time PHQ-9 Depression Total Score: 19 018 9:18 AM DIE MAKER TRIM documented as of this encounter Care Teams Infection Prevention Coordinator Relationship Specialty Start Date End Date Andrez Krause PA-C PCP - General Physician Can Inspector - Medical 10/09/15 05/29/21 Andrez Krause PA-C [address] [place] [address] PCP - Assigned PCP 09/13/15 12/14/18 Heaven Brunson PA-C [facility] [address] [place] [address] PCP - General Physician Can Inspector 05/30/21 Andrez Krause PA-C [address] [place] [address] Assigned PCP 09/13/15 06/20/22 Mona Tian MD [address] [place] [address] Assigned OBGYN Provider 08/03/20 Brett Torres [facility] [address] [facility] 255 [place], [place] [address] Assigned Behavioral Health Provider 07/14/21 01/02/23 Karen Galvan PA-C [address] [facility] [address] [place], [place] [address] Assigned Sleep Provider 09/01/21 Marie Lawrence [facility] 5775 [facility] 200 [place], [place] [address] Assigned MTM Pharmacist 04/05/22 documented as of this encounter
--- OUTSIDE RECORDS SUMMARY | 2023-10-19 14:44 | XMS_ITS | Encounter Summary ---
Author Name Unknown Organization [facility] Address [address] [place] [address] Care Team Providers Care Gourmet Coffee Attendant Name Role Phone Andrez Krause PA-C Primary Care Provider Andrez Krause PA-C Unavailable + [phone] Andrez Krause PA-C Unavailable + [phone] Mona Tian MD Unavailable [phone] Heaven Brunson PA-C Primary Care Provider Brett Torres MD Unavailable +[phone] Karen Galvan PA-C Unavailable [phone] Marie Lawrence [facility] Unavailable +[phone] Reason for Visit * Reason Onset Date Comments Mental Health Problem 09/11/2017 Encounter Details Date Type Department Care Team (Late st Contact Info) Description 09/11/2017 MyC Medical Advice [address], [address] [place] [address] Andrez Krause PA-C [address] [place] [address] Mental Health Problem Social History Tobacco Use Types Packs/Day Years Used Date Smoking Tobacco: Never Smokeless Tobacco: Never Alcohol Use Standard Drinks/Week Comments Yes 0 (1 standard drink = 0.6 oz pur e alcohol) socially Sex and Gender Information Value Date Recorded Sex Assigned at Female 11/04/2018 8:36 AM SANDER OPERATOR Gender Identity Female 11/04/2018 8:36 AM SANDER OPERATOR Sexual Orientation Straight 11/04/2018 8: 36 AM SANDER OPERATOR documented as of this encounter Plan of Treatment Not on file documented as of this encounter Visit Diagnoses Not on filedocumented in this encounter Additional Health Concerns Assessment Noted Time PHQ-9 Depression Total Score: 25 017 7:54 AM SANDER OPERATOR documented as of this encounter Care Teams Gourmet Coffee Attendant Relationship Specialty Start Date End Date Andrez Krause PA-C PCP - General Physician Graphic Designer - Medical 10/09/15 05/29/21 Andrez Krause PA-C [address] [place] [address] PCP - Assigned PCP 09/13/15 12/14/18 Heaven Brunson PA-C [facility] [address] [place] [address] PCP - General Physician Graphic Designer 05/30/21 Andrez Krause PA-C [address] [place] [address] Assigned PCP 09/13/15 06/20/22 Mona Tian MD [address] [place] [address] Assigned OBGYN Provider 08/03/20 Brett Torres [facility] [address] [place] [address] Assigned Behavioral Health Provider 07/14/21 01/02/23 Karen Galvan PA-C [address] [place] [address] Assigned Sleep Provider 09/01/21 Marie Lawrence, [facility] 5775 [facility] [address] [place] [address] Assigned MTM Pharmacist 04/05/22 documented as of this encounter
--- OUTSIDE RECORDS SUMMARY | 2023-10-19 14:44 | XMS_ITS | Encounter Summary ---
Author Name Unknown Organization [facility] Address [address] [place] [address] Care Team Providers Care Quarter Section Ironer Name Role Phone Andrez Krause PA-C Primary Care Provider Andrez Krause PA-C Unavailable + [phone] Andrez Krause PA-C Unavailable + [phone] Mona Tian MD Unavailable [phone] Heaven Brunson PA-C Primary Care Provider Brett Torres MD Unavailable [phone] Karen Galvan PA-C Unavailable [phone] Marie Lawrence [facility] Unavailable [phone] Reason for Visit * Reason Onset Date Comments Refill Request 03/23/2016 Encounter Details Date Type Department Care Team (Late st Contact Info) Description 03/23/2016 Tristen Hussein [address], [address] [place] [address] Andrez Krause PA-C [address] [place] [address] Refill Request Social History Tobacco Use Types Packs/Day Years Used Date Smoking Tobacco: Never Alcohol Use Standard Drinks/Week Comments Yes 0 (1 standard drink = 0.6 oz pur e alcohol) socially Sex and Gender Information Value Date Recorded Sex Assigned at Female 11/04/2018 8:36 AM PROFESSIONAL MODEL Gender Identity Female 11/04/2018 8:36 AM PROFESSIONAL MODEL Sexual Orientation Straight 11/04/2018 8: 36 AM PROFESSIONAL MODEL documented as of this encounter Miscellaneous Notes * Telephone Encounter - Una Berry - 03/26/2016 2:37 PM CDT Patient scheduled appt through [facility] for 03/31 * Telephone Encounter - Josefina Diop RN - 03/25/2016 10:53 AM CDT Per last refill PCP wants to see patient Josefina Diop RN, BSN * Telephone Encounter - Josefina Diop RN - 03/25/2016 10:52 AM CDTMessage from [facility]: Original authorizing provider: LUIS ANTONIO Molina would like a refill of the following medications: citalopram (CELEXA) 20 MG tablet [Andrez Krause PA-C] Preferred pharmacy: [id number] [place] [address] Comment: documented in this encounter Plan of Treatment Not on file documented as of this encounter Visit Diagnoses Diagnosis Adjustment disorder with mixed anxiety and depressed mood documented in this encounter Additional Health Concerns Assessment Noted Time PHQ-9 Depression Total Score: 21 016 9:30 AM CDT documented as of this encounter Care Teams Quarter Section Ironer Relationship Specialty Start Date End Date Andrez Krause PA-C PCP - General Physician Gas Welding Equipment Mechanic - Medical 10/09/15 05/29/21 Andrez Krause PA-C [address] [place] [address] PCP - Assigned PCP 09/13/15 12/14/18 Heaven Brusnon PA-C [facility] [address] [place] [address] PCP - General Physician Gas Welding Equipment Mechanic 05/30/21 Andrez Krause PA-C [address] [place] [address] Assigned PCP 09/13/15 06/20/22 Mona Tian MD [address] [place] [address] Assigned OBGYN Provider 08/03/20 Brett Torres [facility] [address] [facility] [address] [place] [address] Assigned Behavioral Health Provider 07/14/21 01/02/23 Karen Galvan PA-C [address] [facility] [address] [place] [address] Assigned Sleep Provider 09/01/21 Marie Lawrence, [facility] [address] [facility] [address] [place], [place] [id number] Assigned MTM Pharmacist 04/05/22 documented as of this encounter
== END 2023-10-19 14:31 | disposition home or self-care (01) ==
PROVIDERS: PCP Physician Assistant Medical; Visit Provider Physician Assistant Medical
DX: Z01.818 Encounter for other preprocedural examination (principal); M25.50 Pain in unspecified joint
CPT/HCPCS: 80053; 82306; 84403; 86039; 86140; 86200; 86431; 86618

== ENCOUNTER 2023-10-21 14:49 | Outpatient (CLI) | payer BC, SELFPAY ==
--- NOTE | 2023-10-21 15:00 | CRLHL7_ITS ---
For Patients: As a result of the Century Cures Act, medical imaging exams and procedure reports are released immediately into your electronic medical record. You may view this report before your referring provider. If you have questions, please contact your health care provider. INDICATION: Epigastric pain. TECHNIQUE: Limited abdominal ultrasound. FINDINGS: Liver: Moderately echogenic parenchyma. No mass lesion. Pancreas: The tail is obscured by gas no other abnormality. Gallbladder: Unremarkable. The wall is upper normal thickness. Common bile duct: 3 mm normal caliber. Right kidney: No hydronephrosis or mass lesion, 10.9 cm. IMPRESSION: 1. Mild echogenicity of the liver parenchyma suggesting fatty infiltration. 2. The biliary tree appears unremarkable. Dictated by Robi Segal MD @ 10/22/2023 11:32:36 AM (Electronically Signed)
== END 2023-10-21 14:50 | disposition home or self-care (01) ==
LOC: US 14:50
PROVIDERS: PCP Physician Assistant Medical; Visit Provider Physician Assistant Medical
DX: R10.13 Epigastric pain (principal); R14.0 Abdominal distension (gaseous)
CPT/HCPCS: 76705

== ENCOUNTER 2023-11-10 09:17 | Outpatient (CLI) | payer BC, SELFPAY ==
--- OUTSIDE RECORDS SUMMARY | 2023-11-10 09:24 | XMS_ITS | Clinical Summary ---
Author Name Unknown Organization [employer] [facility] Address [place], [place] [address] Care Team Providers Care Van Driver Name Role Phone Heaven Brunson PA-C Primary Care Provider + [phone] Allergies Active Allergy Reactions Criticality Noted Date [...] Encounters Date Type Department Care Team Description 10/27/2023 Telephone [facility] [address] [place] [address] Gabriel Josue DPM SURGERY (RIGHT FOOT SURGERY) 10/23/2023 Travel 08/26/2023 Orders Only [facility] [address] [place] [address] Gabriel Josue DPM <No scans attached> 08/18/2023 4:00 PM PICTURE FRAMES INSPECTOR Ancillary Procedure [facility] [address] [place] [address] 08/18/2023 3:00 PM PICTURE FRAMES INSPECTOR Office Visit [facility] [address] [place] [address] Gabriel Josue DPM Consult (Bilateral foot pain) [...] Comments Blood Pressure 139/90 08/18/2023 2:52 PM PICTURE FRAMES INSPECTOR Pulse 104 08/18/2023 2:52 PM PICTURE FRAMES INSPECTOR Temperature 38.8 ??C (101.8 ??F) 02/12/2011 7:22 PM C DT Respiratory Rate 16 05/22/2023 1:51 PM CDT Oxygen Saturation 99% 08/18/2023 2:52 PM PICTURE FRAMES INSPECTOR Inhaled Oxygen Concentration - - Weight 107.5 kg (237 lb) 05/22/2023 1:51 PM CDT Height 165.1 cm (5' 5) 02/04/2022 8:25 AM CDT Body Mass Index 39.44 02/04/2022 8:25 AM CDT Plan of Treatment Health Maintenance Due Date Last Done Comments HIV for age 15-65 02/12/2008 Hepatitis C screening for age 18-79 2011 Depression screening for age 12+ 02/25/2022 02/25/2021 BMI (ht and wt on same day) for age 18+ 02/04/2023 02/04/2022, 02/25/2021 Influenza for age 9-49 06/12/2023 0, 10/17/2009, 10/17/2009 Pap test for age 21-65 10/21/2024 10/21/2021, 2021 Tetanus booster 02/07/2031 02/07/2021, 04/06/2021, 01/03/2011, Additional history exists Tdap Completed 01/03/2011 COVID-19 vaccine series Completed 08/26/2023, 02/25 Pneumococcal series for age 6-64 Aged Out No longer eligible based on patient's age to complete this topic Procedures Procedure Name Priority Date/Time Associated Diagnosis Comments XR FOOT 3 VIEWS RIGHT Routine 08/18/2023 3:40 PM PICTURE FRAMES INSPECTOR Plantar fasciitis from Last 3 Months Results * XR FOOT 3 VIEWS RIGHT (08/18/2023 3:40 PM PICTURE FRAMES INSPECTOR) Anatomical Region Laterality Modality FEET, FOOT R Computed Radiogr aphy 08/18/2023 4:10 PM PICTURE FRAMES INSPECTOR Narrative 08/18/2023 4:10 PM PICTURE FRAMES INSPECTOR For Patients: ??As a result of the [...] phalanx. Dictated by Sin Bergman MD @ Nov ??7 2022 ??4:10PM (Electronically Signed) ?? Procedure Note Sin [...] 18 2023 4:10PM (Electronically Signed) Gabriel Josue DPM GENERAL IMAGING from Last 3 Months Care Teams Van Driver Relationship Specialty Start Date End Date Heaven Brunson PA-C [address] [place] [address] PCP - General Emergency Medicine 02/04/22
--- OUTSIDE RECORDS SUMMARY | 2023-11-10 09:24 | XMS_ITS | Continuity of Care Document ---
Author Name Unknown Organization [facility] Address [address] [facility] [place] [address] Phone Care Team Providers Care Xerox Machine Assembler Name Role Phone Pamela Ceja DNP Unavailable Unavailab le Allergies, Adverse Reactions, Alerts Substance Reaction Status Criticality mold Active No Information adhesive Dermatitis Active No Information IODINE Dermatitis Active No Information Medications Medication Instructions Dosage Effective Dates (start [...] 20 MG - Active Procedures Procedure Date OFFICE/OUTPATIENT VISIT, EST Ketorolac tromethamine inj OFFICE/OUTPATIENT VISIT, EST Botulinum [...] Diagnoses Date Provider Providers Copied on Encounter OFFICE/OUTPA TIENT VISIT, [facility], [address], [place], [id number] , tel:[phone] [facility] Widespread pain (chief complaint) Chronic pain syndromeChronic migraine without auraOther shelter (current) drug therapyPain in right ankle and joints of right footMyalgia, other site 4 Brenna Santiago. [address] [facility] 11, [address], [id number], [place]. tel:[phone] Referring Provider: Julio Ballard, [address] [facility] [place], [address] . tel:[phone] OFFICE/OUTPA TIENT VISIT, [facility], [address], [place], [id number] , tel:[phone] [facility] headache (chief complaint) Chronic migraine w/o aura, not intractable, w/o stat migrNausea 0 Stephanie Man. [address] [facility] [address], [place], [id number], [place]. tel:[phone] Referring Provider: Eliseo Carlton [facility] [address] [place], [address]. tel:[phone] [facility], [address] [place] [address], [id number] , [place] tel:[phone] [facility] Chronic migraine w/o aura, intractable, w/o stat migr Fredrick-0 0 Nyongesa Magda. [address], [place], [id number], [place]. tel:[phone] Referring Provider: Eliseo Carlton [facility] [address] [place], [address]. tel:[phone] [facility], [address] [place] [address], [id number] , [place] tel:[phone] [facility] No Information 0 Will Julio. [address] [place] [address], [id number], [place]. tel:[phone] [facility], [address] [place] [address], [id number] , [place] tel:[phone] [facility] Chronic migraine w/o aura, not intractable, w/o stat migrChronic migraine w/o aura, intractable, w/o stat migr Feb-0 0 Nyongesa Magda. [address], [id number], [place]. tel:[phone] Referring Provider: Eliseo Carlton [facility] [address] [place], [address]. tel:[phone] [facility], [address] [place] [address], [id number] , [place] tel:[phone] [facility] No Information 0 Nyongesa Magda. [address], [place], [id number], [place]. tel:[phone] [facility], [address], [place], [id number] , [place] tel:[phone] [facility] Electra Chronic migraine w/o aura, intractable, w/o stat migr 9 [facility] Magda. [address] [facility] [address], [place], [place], [id number], [place]. tel:[phone] Referring Provider: Eliseo Carlton [facility] [address] [place], [address]. tel:[phone] [facility], [address], [place], [id number] , [place] tel:[phone] [facility]ra Chronic migraine w/o aura, intractable, w/o stat migr 9 [facility] [address] [facility] [address], [place], [id number], [place]. tel:[phone] Referring Provider: Eliseo Carlton [facility] [address] [place], [address]. tel:[phone] OFFICE/OUTPA TIENT VISIT, [facility], [address], [place], [id number] , [place] tel:[phone] [facility] Electra headache (chief complaint) Chronic migraine w/o aura, not intractable, w/o stat migrChronic pain syndromeOther shelter (current) drug therapy 9 [facility] [address], [place], [place], [id number], [place]. tel:[phone] Referring Provider: Eliseo Carlton [facility] [address] [place], [address]. tel:[phone] [facility], [address] [place] [address], [id number] , [place] tel:[phone] [facility] Electra Chronic migraine w/o aura, not intractable, w/o stat migr May- 9 Marco A Bajwa. [facility], [address], [place], [address], [place]. tel:[phone] Referring Provider: Eliseo Carlton [facility] [address] [place], [address]. tel:[phone] OFFICE/OUTPA TIENT VISIT, [facility], [address], [place], [id number] , [place] tel:[phone] [facility] headache (chief complaint) Chronic pain syndromeChronic migraine w/o aura, not intractable, w/o stat migrOther shelter (current) drug therapy [facility] [address] [facility] [address], [place], [id number], [place]. tel:[phone] Referring Provider: Eliseo Carlton [facility] [address] [place], [address]. tel:[phone] OFFICE/OUTPA TIENT VISIT, [facility], [address], [place], [id number] , [place] tel:[phone] [facility] headache (chief complaint) Chronic migraine w/o aura, not intractable, w/o stat migrChronic migraine w/o aura, intractable, w/o stat migrChronic pain syndrome Nyonge Magda. [address] [facility] [address], [place], [id number], [place]. tel:[phone] Referring Provider: Eliseo Carlton [facility] [address] [place], [address]. tel:[phone] [facility], [address], [place], [id number] , [place] tel:[phone] [facility] Chronic migraine w/o aura, intractable, w/o stat migr 9 Nyongesa Magda. [address] [facility] [address], [place], [id number], [place]. tel:[phone] Referring Provider: Eliseo Carlton [facility] [address] [place], [address]. tel:[phone] OFFICE/OUTPA TIENT VISIT, [facility], [address], [place], [id number] , [place] tel:[phone] [facility] headache (chief complaint) Chronic pain syndromeChronic migraine w/o aura, not intractable, w/o stat migr [address] [place] [address] [address], [place], [place], [id number], [place]. tel:[phone] Referring Provider: Eliseo Carlton [facility] [address] [place] [address], [address]. tel:[phone] OFFICE/OUTPA TIENT VISIT, [facility], [address], [place], [id number] , [place] tel:[phone] [facility] Headache (chief complaint) Chronic migraine w/o aura, not intractable, w/o stat migrChronic pain syndrome 9 [facility]. [facility], [address], [place], [address], [place]. tel:[phone] Referring Provider: Eliseo Carlton [facility] [address] [place], [address]. tel:[phone] Family History Family Member Type Diagnosis Age At Onset Problem (finding) Family history of chron ic migraines Payers Payer name Insurance type Covered constitution party ID Authordeana tiemile(s) [employer] [id number] Social History Type Description Quantity Date Captured Comments Alcohol Use Details No Caffeine Use Details Unknown Tobacco Use Status Current non-smoker Smoking Status Never smoker Non-Smoking Tobacco Use Details : No Details Available : No Details Available Sex Female Vital Signs Date / Time: Height Weight BMI Pulse Rate Blood Pressure Temperature Respiratory Rate Body Surface Area Head Circumference Head Circ. Percentile Wt./Ildefonso. Percentile BMI percentile Pulse Ox Inhaled Ox 1:18 PM 66.00 in 109.316 kg (241.00 lbs) 38.9 0 kg/m eter (2) Chief Complaint And Reason For Visit From encounter dated 10/15/2023 13:40'. Widespread pain (chief complaint). Description: Severity level is 5. Duration: chronic. The client describes it as sharp, achy and deep. It occurs persistently. The problem is worsening. Symptom is aggravated by running, standing, walking, changing positions, housework, movement and stairs. Relieving factors include stretching, massage, rest, heat, cold and lying down. Pertinent negatives includediarrhea, dyspnea, fever and incontinence (urinary). Reason For Referral Reason For Referral No Information Plan Of Treatment Date Type Action Status Goal Tobacco Use. Due on 024 due Goal Hepatitis C screening. Due o n due Goal Medication Reconciliation. D ue on due Goal Review Allergy List. Due on due Goal Weight. Due on d ue Goal Unhealthy drug use screening . Due on due Goal PHQ-9. Due on du e Goal Height. Due on d ue Goal Update Social History. Due o n due Goal HPV. Due on due Goal Lifestyle education regardin g diet completed Referral Ordered: Andrez Krause -Family Medicine (related to Chronic migraine w/o aura, not intractable, w/o stat migr) ordered Referral Referred To: Andrez Krause [address] [place], [phone] Ordered: Referrals: Family Medicine. Andrez Krause ordered History Of Present Illness Encounter Date Complaint History Of Prese nt Illness Comments: This i s my first evaluation of the patient. Outside records from [facility] are available for review.Starr is a 28 y/o female here for initial consult for widespread pain. She was previously a patient at [facility] in 2019. Pain gradually started while she was in college around 2009 and has worsened over the years. She describes pain as aching, deep, and sharp and rates the pain severity 5/10.Reports pain is located widespread - feet, headaches/migraines, hands, elbows, shoulders, wrists, hips, knee, back, and neck. Pain initially began with joint aching, but now had widespread joint and muscular pain that has worsened. She also has chronic migraines without aura - 15/18 month. Has not had any lab work ups for inflammatory markers or possible other underlying causes to her pain. States her PCP has not offered to order these for her. Believes she may have fibromyalgia.States she will be having a R foot surgery for plantar fasciitis and may need her L foot done in the future.She has tried PT, Botox, cervical MBB, ketamine infustions, and BL feet cortisone injections, without lasting relief. Receives acupuncture and massages regularly. Previously followed a virtual pain doctor and was dx with benign hypermobility joint syndrome. She has previously tried gabapentin, Lyrica, topamax, cymbalta, amitriptyline, cyclobenzaprine, tizanidine, orphenadrine, naproxen, tylenol, prednisone, hydrocodone, trazodone, LDN, topical creams, medical patches, wellbutrin, aimovig, and qulipta. Denies SE to these medications, but have not provided any relief previously.The patient is currently managed on vyvanse 30mg, lorazepam 0.5mg, zaleplon 5mg, baclofen 10mg prn, hydroxyzine 50mg, nurtec 75mg, ibuprofen, metformin 500mg BID, and clonidine 0.1mg prn. Finds Nurtec somewhat helpful for migraines. Ibuprofen is not very helpful and limits use d/t possible rebound headaches. Follows with a therapist. OTC edibles and muscle relaxers are helpful for sleep, but not her pain. Starr is interested in all treatment options through [facility]. No other concerns today.Treatments Tried: Gabapentin- Tried several times in the pastLyricaTopiramate CymbaltaAmitriptylineFlexeril- helpful for sleepTizanidine- helpful for sleepOrphenadrine- helpful for sleepIbuprofen- not helpfulStretchingIce HeatNaproxenPrednisoneToradolBaclofen- not helpfulHydroxyzine- used for anxietyNurtec- One as needed. Helpful PT- Not helpfulBotox- not helpfulKetamine- for pain and depression, not helpfulONBs- not helpfulMBB- cervical increased painAcupuncture- routinely sees a providerMassage- done monthly Cortisone injection to the feet- not helpfulTHC- helpful for sleep onlyLow dose Naltrexone- not helpfulWellbutrinClonodineAmiovigQulipta Widespread pain Severity level i s 5. Duration: chronic. The client describes it as sharp, achy and deep. It occurs persistently. The problem is worsening. Symptom is aggravated by running, standing, walking, changing positions, housework, movement and stairs. Relieving factors include stretching, massage, rest, heat, cold and lying down. Pertinent negatives include diarrhea, dyspnea, fever and incontinence (urinary). headache (comments) Patient with 4/day severe headaches, [...] for chronic migraines, referred by Dr. Andrez rKause. She has had intermittent migraine episodes since childhood. Migraines start suddenly with no warning-- pain in top of head with nausea 20% of the time. Has seen her neurology at [facility], did not stay with [facility] due to insurance reasons. Headaches >15 days a monthAnn is interested in any treatment option and would like [facility] to assume management of pain care.Previous treatments [...] No Information Instructions Date Instruction Additional Infor gi Lifestyle education regarding di et Related to Body mass index [BMI] 38.0-38.9, adult Assessments Type Assessment Date assessment Chronic pain syndrome assessment Chronic migraine without aura Larry assessment Other shelter (current) drug t herapy assessment Pain in right ankle and joints o f right foot assessment Myalgia, other site impression Starr is a 28 y/o fema le here for initial consult for widespread pain. She was previously a patient at [facility] in 2019. Pain gradually started while she was in college around 2009 and has worsened over the years. She describes pain as aching, deep, and sharp and rates the pain severity 5/10.Reports pain is located widespread - feet, headaches/migraines, hands, elbows, shoulders, wrists, hips, knee, back, and neck impression Pain initially began with joint aching, but now had widespread joint and muscular pain that has worsened.Has not had any lab work ups for inflammatory markers or possible other underlying causes to her pain. States her PCP has not offered to order these for her. Believes she may have fibromyalgia.She has tried PT, Botox, cervical MBB, ketamine infustions, and BL feet cortisone injections, without lasting relief. Receives acupuncture and massages regularly. Previously followed a virtual pain doctor and was dx with benign hypermobility joint syndrome impression She also has chronic migraines without aura - 1518 month. Has tried several different migraine medications. Has also tried Botox and cervical MBB without relief. Currently on Nurtec impression States she will be h aving a R foot surgery for plantar fasciitis and may need her L foot done in the future impression The patient is curre ntly managed on vyvanse 30mg, lorazepam 0.5mg, zaleplon 5mg, baclofen 10mg prn, hydroxyzine 50mg, nurtec 75mg, ibuprofen, metformin 500mg BID, and clonidine 0.1mg prn. Finds Nurtec somewhat helpful for migraines. Ibuprofen is not very helpful and limits use d/t possible rebound headaches. Follows with a therapist. OTC edibles and muscle relaxers are helpful for sleep, but not her pain. She has an extensive treatments tried profile, without significant benefit to her pain. [place] [employer]ISH TEACHER reviewed and consistent. [place] Judicial criminal backgrounds check completed with no outstanding results or concerning convictions Homero-04-2024 Mental Status Date Cognitive Assessment Orientation - [place] ed to time, place, person, situation. Patient Care Teams Name Effective Dates (start - stop) Status Members No Information
--- OUTSIDE RECORDS SUMMARY | 2023-11-10 09:24 | XMS_ITS | Patient Health Record ---
Author Name Unknown Organization [facility] Address [address] [place] [address] [address] [place] [address] Care Team Providers Care Bushel Girl Name Role Phone Heaven Brunson Primary Care Provider UnavailGraeme Ulrich Unavailable [phone] Luis A Velazco Unavailable Unavailable Dale Lau Unavailable [phone] ALLERGIES Allergen (clinical drug ingredient) Drug/Non Drug [...] migrainosus (G43.001) Active confirmed Migraine without aura (11862971) Problem Other chronic pain (G89.29) Active confirmed Chronic pain (34704819) Problem Spondylosis without myelopathy or radiculopathy, cervical region (M47.812) Active confirmed Cervical spondylosis without myelopathy (733769065) Problem Headache, unspecified (R51.9) Active confirmed Headache (91948744) Encounters Encounter Location Date Provider Diagnosis [facility] [address] [place] [address] 01/22/2023 Dale Lau PLAN OF TREATMENT No Information Insurance Providers Payer Name Payer Address Payer Phone Subscriber Number Group Number Insured Name Patient Relationship to Insured Coverage Start Date Coverage End Date [facility] [address] [address] [place] [phone] [id number] Starr Remy Self - patient is the insured MEDICAL (GENERAL) HISTORY Medical History History ICD Code Anxiety Depression Headaches Migraines Surgical History Surgery Date(Month/Year) Appendectomy 11/08/2021
--- OUTSIDE RECORDS SUMMARY | 2023-11-10 09:25 | XMS_ITS | Encounter Summary ---
Author Name Unknown Organization [facility] Address [address] [place] [address] Care Team Providers Care Web Design Instructor Name Role Phone Andrez Krause PA-C Unavailable + [phone] Heaven Brunson PA-C Primary Care Provider Brett Torres MD Unavailable [phone] Karen Galvan PA-C Unavailable + [phone] Marie Lawrence [facility] Unavailable Encounter Details Date Type Department Care Team (Late st Contact Info) Description 12/04/2021 [facility] Medical [facility]ice [facility] [address] [facility] [address] [place] [address] Mona Strauss RN Social History Tobacco Use Types Packs/Day Years Used Date Smoking Tobacco: Never Smokeless Tobacco: Never Alcohol Use Standard Drinks/Week Comments Yes 0 (1 standard drink = 0.6 oz pur e alcohol) Social, rare PHQ-2 Answer Date Recorded PHQ-2 Score 6 07/03/2021 Sex and Gender Information Value Date Recorded Sex Assigned at Female 11/04/2018 8:36 AM WELL SURVEYING ENGINEER Gender Identity Female 11/04/2018 8:36 AM WELL SURVEYING ENGINEER Sexual Orientation Straight 11/04/2018 8: 36 AM WELL SURVEYING ENGINEER documented as of this encounter Plan of Treatment Not on file documented as of this encounter Visit Diagnoses Not on filedocumented in this encounter Additional Health Concerns Assessment Noted Time PHQ-9 Depression Total Score: 24 021 12:59 PM CDT documented as of this encounter Care Teams Web Design Instructor Relationship Specialty Start Date End Date Heaven Brunson PA-C [facility] [address] [place] [address] PCP - General Physician Chief Growth Officer 05/30/21 Andrez Krause PA-C [address] [place] [address] Assigned PCP 09/13/15 06/20/22 Brett Torres [facility] [address] [facility] 255 [place], [place] [address] Assigned Behavioral Health Provider 07/14/21 01/02/23 Karen Galvan PA-C [address] [facility] 103 [place] [address] Assigned Sleep Provider 09/01/21 Marie Lawrence, [facility] [address] [facility] 200 [place], [place] [id number] Assigned MTM Pharmacist 04/05/22 documented as of this encounter
--- OUTSIDE RECORDS SUMMARY | 2023-11-10 09:25 | XMS_ITS | Encounter Summary ---
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 PRESIDENT SALES Gender Identity Female 11/04/2018 8:36 AM VICE PRESIDENT SALES Sexual Orientation Straight 11/04/2018 8: 36 AM VICE PRESIDENT SALES documented as of this encounter Plan of Treatment Not on file documented as of this encounter Visit Diagnoses Not on filedocumented in this encounter Additional Health Concerns Assessment Noted Time PHQ-9 Depression Total Score: 23 021 9:44 AM CDT documented as of this encounter Care Teams Stamping Die Maker Bench Relationship Specialty Start Date End Date Heaven Brunson PA-C [facility] [address] [place] [address] PCP - General Physician Pearl Diver 05/30/21 Andrez Krause PA-C [address] [facility] [place] [address] Assigned PCP 09/13/15 06/20/22 Mona Tian MD [address] [facility] [facility] [place] [address] Assigned OBGYN Provider 08/03/20 Brett Torres [facility] [address] [facility] 255 [place], [place] [address] Assigned Behavioral Health Provider 07/14/21 01/02/23 Karen Galvan PA-C [address] [facility] 103 [place] [address] Assigned Sleep Provider 09/01/21 Marie Lawrence, [facility] [address] [facility] 200 [place], [place] [id number] Assigned MTM Pharmacist 04/05/22 documented as of this encounter
--- OUTSIDE RECORDS SUMMARY | 2023-11-10 09:25 | XMS_ITS | Encounter Summary ---
Author Name Unknown Organization [facility] Address [address] [place] [address] Care Team Providers Care Energy Conservation Representative Name Role Phone JimiAndrez PA-C Unavailable [phone] Heaven Brunson PA-C Primary Care Provider Brett Torres MD Unavailable Karen Galvan PA-C Unavailable [phone] Marie Lawrence [facility] Unavailable Encounter Details Date Type Department Care Team (Late st Contact Info) Description 07/03/2021 [facility] [address] [facility] [address] [place] [address] Brett Torres MD [facility] [address] [facility] [address] [place] [address] Social History Tobacco Use Types Packs/Day Years Used Date Smoking Tobacco: Never Smokeless Tobacco: Never Alcohol Use Standard Drinks/Week Comments Yes 0 (1 standard drink = 0.6 oz pur e alcohol) Social, rare PHQ-2 Answer Date Recorded PHQ-2 Score 6 07/03/2021 Sex and Gender Information Value Date Recorded Sex Assigned at Female 11/04/2018 8:36 AM ELECTRICAL TESTER Gender Identity Female 11/04/2018 8:36 AM ELECTRICAL TESTER Sexual Orientation Straight 11/04/2018 8: 36 AM ELECTRICAL TESTER COVID-19 Exposure Response Date Recorded In the [...] documented as of this encounter Care Teams Energy Conservation Representative Relationship Specialty Start Date End Date Heaven Brunson PA-C [facility] [address] [place] [address] PCP - General Physician Pot Washer 05/30/21 Andrez Krause PA-C [address] [facility] [place] [address] Assigned PCP 09/13/15 06/20/22 Brett Torres [facility] [address] [facility] [address] [place], [place] [address] Assigned Behavioral Health Provider 07/14/21 01/02/23 Karen Galvan PA-C [address] [facility] 103 [place], [place] [address] Assigned Sleep Provider 09/01/21 Marie Lawrence, [facility] [address] [facility] 200 [place] [address] Assigned MTM Pharmacist 04/05/22 documented as of this encounter
--- OUTSIDE RECORDS SUMMARY | 2023-11-10 09:25 | XMS_ITS | Clinical Summary ---
Author Name Unknown Organization [facility] Address [address] [place] [address] Care Team Providers Care Market Research Worker Name Role Phone Heaven Brunson PA-C Primary Care Provider Allergies No known active allergies Medications Medication Sig Dispensed Refills Start Date End Date Status rizatriptan (MAXALT-NETWORK CONTROLLER) 5 MG ODTIndications:Migra ine without aura and [...] Type Department Care Team Description 09/10/2023 Telephone [facility] Neuropsychology [address] 3rd [place] [address] Mariia Santillan MA 09/10/2023 Transcribe Orders GENERIC EXTERNAL DATA DEPARTMENT Provider, Generic External Data Insomnia (Primary Dx); Binge eating disorder; Attention deficit hyperactivity disorder, predominantly inattentive type; Stress and adjustment reaction; Social phobia; Dysthymia; Moderate recurrent major depression (H) 09/09/2023 Medical Correspondence [facility] [address] [place] [address] Outside, Provider from Last 3 [...] Sex Assigned at Female 11/04/2018 8:36 AM NASCAR RACER Gender Identity Female 11/04/2018 8:36 AM NASCAR RACER Sexual Orientation Straight 11/04/2018 8: 36 AM NASCAR RACER Last Filed Vital Signs Vital Sign Reading Time Taken Comments Blood Pressure 132/83 07/03/2021 12:55 PM CDT Pulse 91 07/03/2021 12:55 PM CDT Temperature 36.4 ??C (97.6 ??F) 07/03/2021 12:55 PM C DT Respiratory Rate 15 10/30/2019 9:30 PM NASCAR RACER Oxygen Saturation 99% 10/30/2019 10:45 PM NASCAR RACER Inhaled Oxygen Concentration - - Weight 112 [...] age to complete this topic Care Teams Market Research Worker Relationship Specialty Start Date End Date Heaven Brunson PA-C [facility] [address] [place], [place] [phone] PCP - General Physician Food Processing Chemist 05/30/21
--- OUTSIDE RECORDS SUMMARY | 2023-11-10 09:25 | XMS_ITS | Encounter Summary ---
Author Name Unknown Organization [facility] Address [address] [place] [address] Care Team Providers Care Admissions Evaluator Name Role Phone Andrez Krause PA-C Unavailable [phone] Heaven Brunson PA-C Primary Care Provider Brett Torres MD Unavailable [phone] Karen Galvan PA-C Unavailable + [phone] Marie Lawrence [facility] Unavailable [phone] Encounter Details Date Type Department Care Team (Late st Contact Info) Description 07/09/2021 [facility] [address] [facility] [address] [place] [address] Mona Strauss RN Social History Tobacco Use Types Packs/Day Years Used Date Smoking Tobacco: Never Smokeless Tobacco: Never Alcohol Use Standard Drinks/Week Comments Yes 0 (1 standard drink = 0.6 oz pur e alcohol) Social, rare PHQ-2 Answer Date Recorded PHQ-2 Score 6 07/03/2021 Sex and Gender Information Value Date Recorded Sex Assigned at Female 11/04/2018 8:36 AM SANDSTONE INSPECTOR REPAIRER Gender Identity Female 11/04/2018 8:36 AM SANDSTONE INSPECTOR REPAIRER Sexual Orientation Straight 11/04/2018 8: 36 AM SANDSTONE INSPECTOR REPAIRER COVID-19 Exposure Response Date Recorded In the [...] as of this encounter Care Teams Admissions Evaluator Relationship Specialty Start Date End Date Heaven Brunosn PA-C [facility] [address] [place] [address] PCP - General Physician Director Of Manufacturing Operations 05/30/21 Andrez Krause PA-C [address] [place] [address] Assigned PCP 09/13/15 06/20/22 Brett Torres [facility] [address] [facility] 255 [place], [place] [address] Assigned Behavioral Health Provider 07/14/21 01/02/23 Karen Galvan PA-C [address] [facility] 103 [place] [address] Assigned Sleep Provider 09/01/21 Marie Lawrence, [facility] [address] [facility] 200 [place], [place] [address] Assigned MTM Pharmacist 04/05/22 documented as of this encounter
--- OUTSIDE RECORDS SUMMARY | 2023-11-10 09:25 | XMS_ITS | Referral Summary ---
Author Name Unknown Organization [facility] Address [address] [place] [address]. [place] [address] Care Team Providers Care Softball Core Molder Name Role Phone Heaven Brunson PA-C Primary Care Provider Encounters Date Type Department Care Team Description 09/10/2023 Telephone [facility] Neuropsychology [address] [place] [address] Mariia Santillan MA 09/10/2023 Transcribe Orders GENERIC EXTERNAL DATA DEPARTMENT Provider, Generic External Data Insomnia (Primary Dx); Binge eating disorder; Attention deficit hyperactivity disorder, predominantly inattentive type; Stress and adjustment reaction; Social phobia; Dysthymia; Moderate recurrent major depression (H) 09/09/2023 Medical Correspondence [facility] [address] [place] [address] Outside, Provider from Last 3 Months Allergies No known active allergies Medications Medication Sig Dispensed Refills Start Date End Date Status rizatriptan (MAXALT-BUSINESS DEVELOPMENT RECRUITER) 5 MG ODTIndications:Migra ine without aura and [...] Sex Assigned at Female 11/04/2018 8:36 AM INTERIM CONTROLLER Gender Identity Female 11/04/2018 8:36 AM INTERIM CONTROLLER Sexual Orientation Straight 11/04/2018 8: 36 AM INTERIM CONTROLLER Last Filed Vital Signs Vital Sign Reading Time Taken Comments Blood Pressure 132/83 07/03/2021 12:55 PM CDT Pulse 91 07/03/2021 12:55 PM CDT Temperature 36.4 ??C (97.6 ??F) 07/03/2021 12:55 PM C DT Respiratory Rate 15 10/30/2019 9:30 PM INTERIM CONTROLLER Oxygen Saturation 99% 10/30/2019 10:45 PM INTERIM CONTROLLER Inhaled Oxygen Concentration - - Weight 112 kg (247 lb) 07/03/2021 12:55 PM CDT Height 167.6 cm (5' 6) 07/03/2021 12:55 PM CDT Body Mass Index 39.87 07/03/2021 12:55 PM CDT Plan of Treatment Not on file Care Teams Softball Core Molder Relationship Specialty Start Date End Date Heaven Brunson PA-C [facility] [address] [place] [address] PCP - General Physician Solid Waste Division Supervisor 05/30/21
--- OUTSIDE RECORDS SUMMARY | 2023-11-10 09:25 | XMS_ITS | Encounter Summary ---
Author Name Unknown Organization [facility] Address [address] [place] [address] Care Team Providers Care Access Services Assistant Name Role Phone Andrez Krause PA-C Unavailable + [phone] Heaven Brunson PA-C Primary Care Provider Brett Torres MD Unavailable [phone] Karen Galvan PA-C Unavailable [phone] Marie Lawrence [facility] Unavailable [phone] Encounter Details Date Type Department Care Team (Late st Contact Info) Description 08/20/2021 [facility] Medical Advice [address] [address] Molly Hinson, [facility] Social History Tobacco Use Types Packs/Day Years Used Date Smoking Tobacco: Never Smokeless Tobacco: Never Alcohol Use Standard Drinks/Week Comments Yes 0 (1 standard drink = 0.6 oz pur e alcohol) Social, rare PHQ-2 Answer Date Recorded PHQ-2 Score 6 07/03/2021 Sex and Gender Information Value Date Recorded Sex Assigned at Female 11/04/2018 8:36 AM HEALTH INFORMATION TECHNOLOGIST Gender Identity Female 11/04/2018 8:36 AM HEALTH INFORMATION TECHNOLOGIST Sexual Orientation Straight 11/04/2018 8: 36 AM HEALTH INFORMATION TECHNOLOGIST documented as of this encounter Plan of Treatment Not on file documented as of this encounter Visit Diagnoses Not on filedocumented in this encounter Additional Health Concerns Assessment Noted Time PHQ-9 Depression Total Score: 24 021 12:59 PM CDT documented as of this encounter Care Teams Access Services Assistant Relationship Specialty Start Date End Date Heaven Brunson PA-C [facility] [address] [place] [address] PCP - General Physician Psychology Associate 05/30/21 Andrez Krause PA-C [address] [place] [address] Assigned PCP 09/13/15 06/20/22 Brett Torres MD [facility]INIC [address] [facility] 255 [place] [address] Assigned Behavioral Health Provider 07/14/21 01/02/23 Karen Galvan PA-C [address] [facility] 103 [place], [place] [address] Assigned Sleep Provider 09/01/21 Marie Lawrence, [facility] 57[address] [facility] 200 [place] [address] Assigned MTM Pharmacist 04/05/22 documented as of this encounter
--- OUTSIDE RECORDS SUMMARY | 2023-11-10 09:25 | XMS_ITS | Encounter Summary ---
Author Name Unknown Organization [facility] Address [address] [place] [address] Care Team Providers Care Post Graduate Internship Name Role Phone KrauseAndrez PA-C Unavailable [phone] Heaven Brunson PA-C Primary Care Provider Brett Torres MD Unavailable [phone] Karen Galvan PA-C Unavailable + [phone] Marie Lawrence [facility] Unavailable Encounter Details Date Type Department Care Team (Late st Contact Info) Description 07/25/2021 Telephone [facility] [place] [id number] [address] Brett Torres MD [facility] CLINIC [address] [place] [address] [address] [place] [address] Social History Tobacco Use Types Packs/Day Years Used Date Smoking Tobacco: Never Smokeless Tobacco: Never Alcohol Use Standard Drinks/Week Comments Yes 0 (1 standard drink = 0.6 oz pur e alcohol) Social, rare PHQ-2 Answer Date Recorded PHQ-2 Score 6 07/03/2021 Sex and Gender Information Value Date Recorded Sex Assigned at Female 11/04/2018 8:36 AM DOWEL SETTING MACHINE OPERATOR Gender Identity Female 11/04/2018 8:36 AM DOWEL SETTING MACHINE OPERATOR Sexual Orientation Straight 11/04/2018 8: 36 AM DOWEL SETTING MACHINE OPERATOR COVID-19 Exposure Response Date Recorded In the [...] documented as of this encounter Care Teams Post Graduate Internship Relationship Specialty Start Date End Date Heaven Brunson PA-C [facility] [address] [place] [address] PCP - General Physician Internal Controls Specialist 05/30/21 Andrez Krause PA-C [address] [place] [address] Assigned PCP 09/13/15 06/20/22 Brett Torres MD [facility]INIC [address] [facility] [address] [place], [place] [address] Assigned Behavioral Health Provider 07/14/21 01/02/23 Karen Galvan PA-C 6[address] [facility] 103 [place] [address] Assigned Sleep Provider 09/01/21 Marie Lawrence, [facility] 57[address] [facility] 200 [place], [place] [id number] Assigned MTM Pharmacist 04/05/22 documented as of this encounter
--- OUTSIDE RECORDS SUMMARY | 2023-11-10 09:25 | XMS_ITS | Encounter Summary ---
Author Name Unknown Organization [facility] Address [address] [place] [address]. [place] [address] Care Team Providers Care Bridge Design Engineer Name Role Phone Heaven Brunson PA-C Primary Care Provider Encounter Details Date Type Department Care Team (Late st Contact Info) Description 09/09/[address] [facility] [place] [address] Outside, Provider Social History Tobacco [...] Sex Assigned at Female 11/04/2018 8:36 AM LAMINATING MACHINE OPERATOR Gender Identity Female 11/04/2018 8:36 AM LAMINATING MACHINE OPERATOR Sexual Orientation Straight 11/04/2018 8: 36 AM LAMINATING MACHINE OPERATOR documented as of this encounter Plan of Treatment Not on file documented as of this encounter Visit Diagnoses Not on filedocumented in this encounter Additional Health Concerns Assessment Noted Time PHQ-9 Depression Total Score: 24 021 12:59 PM CDT documented as of this encounter Care Teams Bridge Design Engineer Relationship Specialty Start Date End Date Heaven Brunson PA-C [facility] [address] [place] [address] PCP - General Physician Splunk Consultant 05/30/21 documented as of this encounter
--- OUTSIDE RECORDS SUMMARY | 2023-11-10 09:25 | XMS_ITS | Encounter Summary ---
Author Name Unknown [facility] Address [address] [place] [address] Care Team Providers Care Dry Room Attendant Name Role Phone Heaven Brunson PA-C Primary Care Provider Encounter Details Date Type Department Care Team (Late st Contact Info) Description 09/10/[address] [facility] Neuropsychology [address] [place] [address] Mariia Santillan MA Social History [...] Sex Assigned at Female 11/04/2018 8:36 AM CONCRETE FLOOR INSTALLER Gender Identity Female 11/04/2018 8:36 AM CONCRETE FLOOR INSTALLER Sexual Orientation Straight 11/04/2018 8: 36 AM CONCRETE FLOOR INSTALLER documented as of this encounter Miscellaneous Notes * Telephone Encounter - Mariia Santillan MA - 09/10/2023 10:28 AM CST Neuropsychology referral declined. Due to the overwhelmingly high volume of incoming referrals and a lengthy wait time, our clinic is currently limiting referrals to the [facility] system. We apologize for the inconvenience. Ref prov notified via fax. Mariia Santillan Rolloff Driver RETE FLOOR INSTALLER documented in this encounter Plan of Treatment Not on file documented as of this encounter Visit Diagnoses Not on filedocumented in this encounter Additional Health Concerns Assessment Noted Time PHQ-9 Depression Total Score: 24 021 12:59 PM CDT documented as of this encounter Care Teams Dry Room Attendant Relationship Specialty Start Date End Date Heaven Brunson PA-C [facility] [address] [place] [address] PCP - General Physician Manufacturing Production Technician 05/30/21 documented as of this encounter
--- OUTSIDE RECORDS SUMMARY | 2023-11-10 09:25 | XMS_ITS | Encounter Summary ---
Author Name Unknown Organization [place] Address [facility] [place] [address] Care Team Providers Care Telephone Repairer Name Role Phone Heaven Brunson PA-C Primary Care Provider Reason for Referral * Mental Health Outpatient (Routine: Next available opening) - Pending Review Specialty Diagnoses / Procedures Referred By Andie t Referred To Contact Neuropsychology Diagnoses Insomnia Binge eating disorder Attention deficit hyperactivity disorder, predominantly inattentive type Stress and adjustment reaction Social phobia Dysthymia Moderate recurrent major depression (H) Bailey Chisholm APRN [facility] [address] [address] Referral ID Status Reason Start Date Expiration Date V isits Requested Visits Authorized [id number] Pending Review 09/10/2023 09/09/2024 1 1 Question Answer Reason for Referral: Other (Be as specific as possible) My Clinical Question Is: Neuropsychological Testing: Moderate/Major recurrent depressive disorder, Dysthymia, Social phobia, Stress and adjustment reaction,ADHD,binge eating disorder,insomnia Scheduling Instructions: [facility] will call you to coordinate your care as prescribed by the provider. If you don? t hear from a hvac sales representative within 2 business days, please call . Comments Referral Transcribed by external fax Provider: Bailey Chisholm affiliated with [facility] clinic at [address] [facility] [address] [place] [address]. VA: No If yes was is the VA Authorization Number: Phone number: [phone] Fax number: [phone] Please be aware that coverage of these services is subject to the terms and limitations of your health insurance plan. Call member services at your health plan with any benefit or coverage questions. [facility] will call you to coordinate your care as prescribed by the provider. If you don? t hear from a hvac sales representative within 2 business days, please call . ATIONS RESEARCH ANALYST Encounter Details Date Type Department Care Team [...] Sex Assigned at Female 11/04/2018 8:36 AM OPERATIONS RESEARCH ANALYST Gender Identity Female 11/04/2018 8:36 AM OPERATIONS RESEARCH ANALYST Sexual Orientation Straight 11/04/2018 8: 36 AM OPERATIONS RESEARCH ANALYST documented as of this encounter Plan of Treatment Scheduled Referrals Name Type Priority Associated Diagnoses Orde r Schedule Adult Neuropsychology Able Bodied Seaman Referral Referral Routine: Next available opening Insomnia [...] documented as of this encounter Care Teams Telephone Repairer Relationship Specialty Start Date End Date Heaven Brunson PA-C [facility] [address] [place], [place] [address] PCP - General Physician Life Science Taxonomist 05/30/21 documented as of this encounter
--- OUTSIDE RECORDS SUMMARY | 2023-11-10 09:26 | XMS_ITS | Encounter Summary ---
Author Name Unknown Organization [place] Address [address] [place] [address] Care Team Providers Care Family Consultant Name Role Phone Andrez Krause PA-C Primary Care Provider Andrez Krause PA-C Unavailable [phone] Mona Tian MD Unavailable [phone] Heaven Brunson PA-C Primary Care Provider Brett Torres MD Unavailable [phone] Karen Galvan PA-C Unavailable + [phone] Marie Lawrence [facility] Unavailable [phone] Encounter Details Date Type Department Care Team (Late st Contact Info) Description 04/01/2019 MyC Medical Advice [facility] Women's [address] [place] [address] Tadeo Wilks MD 303 [facility] 100 131 160 [place] [address] Social History Tobacco Use Types Packs/Day Years Used Date Smoking Tobacco: Never Smokeless Tobacco: Never Alcohol Use Standard Drinks/Week Comments Yes 0 (1 standard drink = 0.6 oz pur e alcohol) Social, rare PHQ-2 Answer Date Recorded PHQ-2 Score 3 02/17/2019 Sex and Gender Information Value Date Recorded Sex Assigned at Female 11/04/2018 8:36 AM FITTINGS FINISHER Gender Identity Female 11/04/2018 8:36 AM FITTINGS FINISHER Sexual Orientation Straight 11/04/2018 8: 36 AM FITTINGS FINISHER documented as of this encounter Plan of Treatment Not on file documented as of this encounter Visit Diagnoses Not on filedocumented in this encounter Additional Health Concerns Assessment Noted Time PHQ-9 Depression Total Score: 17 019 8:25 AM CDT documented as of this encounter Care Teams Family Consultant Relationship Specialty Start Date End Date Andrez Krause PA-C PCP - General Physician Batting Machine Operator Insulation - Medical 10/09/15 05/29/21 Heaven Brunson PA-C [facility] [address] [place], [place] [id number] PCP - General Physician Batting Machine Operator Insulation 05/30/21 Andrez Krause PA-C [address] [place] [address] Assigned PCP 09/13/15 06/20/22 Mona Tian MD [address] [place], [place] [address] Assigned OBGYN Provider 08/03/20 Brett Torres [facility] [address]35 [facility] 255 [place], [place] [address] Assigned Behavioral Health Provider 07/14/21 01/02/23 Karen Galvan PA-C 6363 [facility] 103 [place], [place] [address] Assigned Sleep Provider 09/01/21 Marie Lawrence [facility] 5775 [facility] 200 [place] [address] Assigned MTM Pharmacist 04/05/22 documented as of this encounter
--- OUTSIDE RECORDS SUMMARY | 2023-11-10 09:26 | XMS_ITS | Encounter Summary ---
Author Name Unknown Organization [place] Address [address] [place] [address] Care Team Providers Care Environmental Intern Name Role Phone Andrez Krause PA-C Primary Care Provider Andrez Krause PA-C Unavailable [phone] Mona Tian MD Unavailable [phone] Heaven Brunson PA-C Primary Care Provider Brett Torres MD Unavailable [phone] Karen Galvan PA-C Unavailable + [phone] Marie Lawrence [facility] Unavailable [phone] Reason for Visit * Reason Onset Date Comments Vaginal Problem 02/10/2020 bleeding Encounter Details Date Type Department Care Team (Late st Contact Info) Description 02/10/2020 [facility] Medical Advice [address] [address] Mona Tian MD [facility] [place] [address] Vaginal Problem (bleeding) Social History Tobacco Use Types Packs/Day Years Used Date Smoking Tobacco: Never Smokeless Tobacco: Never Alcohol Use Standard Drinks/Week Comments Yes 0 (1 standard drink = 0.6 oz pur e alcohol) Social, rare PHQ-2 Answer Date Recorded PHQ-2 Score 3 02/17/2019 Sex and Gender Information Value Date Recorded Sex Assigned at Female 11/04/2018 8:36 AM PHP MAGENTO DEVELOPER Gender Identity Female 11/04/2018 8:36 AM PHP MAGENTO DEVELOPER Sexual Orientation Straight 11/04/2018 8: 36 AM PHP MAGENTO DEVELOPER COVID-19 Exposure Response Date Recorded In the [...] documented as of this encounter Care Teams Environmental Intern Relationship Specialty Start Date End Date Andrez Krause PA-C PCP - General Physician Flavor Tank Tender - Medical 10/09/15 05/29/21 Heaven Brunson PA-C [facility] [address] [place], [place] [address] PCP - General Physician Flavor Tank Tender 05/30/21 Andrez Krause PA-C [address] [place] [address] Assigned PCP 09/13/15 06/20/22 Mona Tian MD [address] [facility] [place] [address] Assigned OBGYN Provider 08/03/20 Brett Torres [facility] 81742 [facility] 255 [place], [place] [address] Assigned Behavioral Health Provider 07/14/21 01/02/23 Karen Galvan PA-C [address] [facility] 103 [place] [address] Assigned Sleep Provider 09/01/21 Marie Lawrence, [facility] 5775 [facility] 200 [place], [place] [address] Assigned MTM Pharmacist 04/05/22 documented as of this encounter
--- OUTSIDE RECORDS SUMMARY | 2023-11-10 09:26 | XMS_ITS | Encounter Summary ---
Author Name Unknown Organization [place] Address [address] [place] [address] Care Team Providers Care Maintenance Plumber Name Role Phone Andrez Krause PA-C Primary Care Provider Andrez Krause PA-C Unavailable [phone] Mona Tian MD Unavailable [phone] Heaven Brunson PA-C Primary Care Provider Brett Torres MD Unavailable [phone] Karen Galvan PA-C Unavailable + [phone] Marie Lawrence [facility] Unavailable [phone] Reason for Visit * Reason Onset Date Comments Headache 03/20/2019 Encounter Details Date Type Department Care Team (Late st Contact Info) Description 03/20/2019 MyC Medical Advice [facility] [address] [place] [address] Tadeo Wilks MD 303 [facility] 100 [address] 160 [place] [address] Headache Social History Tobacco Use Types Packs/Day Years Used Date Smoking Tobacco: Never Smokeless Tobacco: Never Alcohol Use Standard Drinks/Week Comments Yes 0 (1 standard drink = 0.6 oz pur e alcohol) Social, rare PHQ-2 Answer Date Recorded PHQ-2 Score 3 02/17/2019 Sex and Gender Information Value Date Recorded Sex Assigned at Female 11/04/2018 8:36 AM THERAPY AIDE Gender Identity Female 11/04/2018 8:36 AM THERAPY AIDE Sexual Orientation Straight 11/04/2018 8: 36 AM THERAPY AIDE documented as of this encounter Miscellaneous Notes [...] with any surgical surgeries Tammie Pryor R.N. [facility] documented in this encounter Plan of Treatment Not on file documented as of this encounter Visit Diagnoses Not on filedocumented in this encounter Additional Health Concerns Assessment Noted Time PHQ-9 Depression Total Score: 17 019 8:25 AM CDT documented as of this encounter Care Teams Maintenance Plumber Relationship Specialty Start Date End Date Andrez Krause PA-C PCP - General Physician Cable Installer Repairer Helper - Medical 10/09/15 05/29/21 Heaven Brunson PA-C [facility] [address] [place] [address] PCP - General Physician Cable Installer Repairer Helper 05/30/21 Andrez Krause PA-C [address] [place] [address] Assigned PCP 09/13/15 06/20/22 Mona Tian MD [address] [place] [address] Assigned OBGYN Provider 08/03/20 Brett Torres [facility] 58409 [facility] 255 [place], [place] [address] Assigned Behavioral Health Provider 07/14/21 01/02/23 Karen Galvan PA-C [address] [facility] 103 [place] [address] Assigned Sleep Provider 09/01/21 Marie Lawrence, [facility] 5775 [facility] 200 [place], [place] [id number] Assigned MTM Pharmacist 04/05/22 documented as of this encounter
--- OUTSIDE RECORDS SUMMARY | 2023-11-10 09:26 | XMS_ITS | Encounter Summary ---
Author Name Unknown Organization [place] Address [address] [place] [address] Care Team Providers Care Fabric Coating Supervisor Name Role Phone Andrez Krause PA-C Primary Care Provider Andrez Krause PA-C Unavailable [phone] Mona Tian MD Unavailable [phone] Heaven Brunson PA-C Primary Care Provider Brett Torres MD Unavailable [phone] Karen Galvan PA-C Unavailable + [phone] Marie Lawrence [facility] Unavailable [phone] Reason for Visit * Reason Onset Date Comments Medication Question 07/02/2020 Encounter Details Date Type Department Care Team (Late st Contact Info) Description 07/02/2020 [facility] Medical Advice [address] [address] Mona Tian MD [facility] [place] [address] Medication Question Social History Tobacco Use Types Packs/Day Years Used Date Smoking Tobacco: Never Smokeless Tobacco: Never Alcohol Use Standard Drinks/Week Comments Yes 0 (1 standard drink = 0.6 oz pur e alcohol) Social, rare PHQ-2 Answer Date Recorded PHQ-2 Score 3 02/17/2019 Sex and Gender Information Value Date Recorded Sex Assigned at Female 11/04/2018 8:36 AM FABRIC SEPARATOR OPERATOR Gender Identity Female 11/04/2018 8:36 AM FABRIC SEPARATOR OPERATOR Sexual Orientation Straight 11/04/2018 8: 36 AM FABRIC SEPARATOR OPERATOR documented as of this encounter Miscellaneous Notes [...] documented as of this encounter Care Teams Fabric Coating Supervisor Relationship Specialty Start Date End Date Andrez Krause PA-C PCP - General Physician Hair Blender - Medical 10/09/15 05/29/21 Heaven Brunson PA-C [facility] [address] [place] [address] PCP - General Physician Hair Blender 05/30/21 Andrez Krause PA-C [address] [place] [address] Assigned PCP 09/13/15 06/20/22 Mona Tian MD [address] [place] [address] Assigned OBGYN Provider 08/03/20 Brett Torres [facility] [address] [facility] 255 [place], [place] [address] Assigned Behavioral Health Provider 07/14/21 01/02/23 Karen Galvan PA-C 6363 [facility] 103 [place] [address] Assigned Sleep Provider 09/01/21 Marie Lawrence, [facility] 5775 [facility] 200 [place], [place] [address] Assigned MTM Pharmacist 04/05/22 documented as of this encounter
--- OUTSIDE RECORDS SUMMARY | 2023-11-10 09:26 | XMS_ITS | Encounter Summary ---
Author Name Unknown Organization [place] Address [address] [place] [address] Care Team Providers Care Hot Plate Plywood Press Laborer Name Role Phone Andrez Krause PA-C Primary Care Provider Andrez Krause PA-C Unavailable [phone] Mona Tian MD Unavailable [phone] Heaven Brunson PA-C Primary Care Provider Brett Torres MD Unavailable [phone] Karen Galvan PA-C Unavailable + [phone] Marie Lawrence [facility] Unavailable [phone] Encounter Details Date Type Department Care Team [...] Sex Assigned at Female 11/04/2018 8:36 AM CROCODILE FARMER Gender Identity Female 11/04/2018 8:36 AM CROCODILE FARMER Sexual Orientation Straight 11/04/2018 8: 36 AM CROCODILE FARMER documented as of this encounter Plan of Treatment Not on file documented as of this encounter Visit Diagnoses Not on filedocumented in this encounter Additional Health Concerns Assessment Noted Time PHQ-9 Depression Total Score: 23 05/05/2 019 9:13 AM CDT documented as of this encounter Care Teams Hot Plate Plywood Press Laborer Relationship Specialty Start Date End Date Andrez Krause PA-C PCP - General Physician Hatchery Employee - Medical 10/09/15 05/29/21 Heaven Brunson PA-C [facility] [address] [place] [address] PCP - General Physician Hatchery Employee 05/30/21 Andrez Krause PA-C [address] [facility] [place] [address] Assigned PCP 09/13/15 06/20/22 Mona Tian MD [address] [place], [place] [address] Assigned OBGYN Provider 08/03/20 Brett Torres [facility] 84415 [facility] 255 [place], [place] [address] Assigned Behavioral Health Provider 07/14/21 01/02/23 Karen Galvan PA-C [address] [facility] 103 [place], [place] [address] Assigned Sleep Provider 09/01/21 Marie Lawrence, [facility] 5775 [facility] 200 [place] [address] Assigned MTM Pharmacist 04/05/22 documented as of this encounter
--- OUTSIDE RECORDS SUMMARY | 2023-11-10 09:26 | XMS_ITS | Encounter Summary ---
Author Name Unknown Organization [place] Address [address] [place] [address]. [place] [address] Care Team Providers Care Two Needle Machine Operator Name Role Phone Andrez Krause PA-C Primary Care Provider Andrez Krause PA-C Unavailable [phone] Mona Tian MD Unavailable [phone] Heaven Brunson PA-C Primary Care Provider Brett Torres MD Unavailable [phone] Karen Galvan PA-C Unavailable + [phone] Marie Lawrence [facility] Unavailable [phone] Encounter Details Date Type Department Care Team (Late st Contact Info) Description 12/22/2019 MyC Medical Advice [address], [address] [place] [address] Andrez Krause PA-C [address] [place] [address] Social History Tobacco Use Types Packs/Day Years Used Date Smoking Tobacco: Never Smokeless Tobacco: Never Alcohol Use Standard Drinks/Week Comments Yes 0 (1 standard drink = 0.6 oz pur e alcohol) Social, rare PHQ-2 Answer Date Recorded PHQ-2 Score 3 02/17/2019 Sex and Gender Information Value Date Recorded Sex Assigned at Female 11/04/2018 8:36 AM TEST KITCHEN HOME ECONOMIST Gender Identity Female 11/04/2018 8:36 AM TEST KITCHEN HOME ECONOMIST Sexual Orientation Straight 11/04/2018 8: 36 AM TEST KITCHEN HOME ECONOMIST documented as of this encounter Plan of Treatment Not on file documented as of this encounter Visit Diagnoses Not on filedocumented in this encounter Additional Health Concerns Assessment Noted Time PHQ-9 Depression Total Score: 23 019 9:13 AM CDT documented as of this encounter Care Teams Two Needle Machine Operator Relationship Specialty Start Date End Date Andrez Krause PA-C PCP - General Physician Gate Clerk - Medical 10/09/15 05/29/21 Heaven Brunson PA-C [facility] [address] [place] [address] PCP - General Physician Gate Clerk 05/30/21 Andrez Krause PA-C [address] [place] [address] Assigned PCP 09/13/15 06/20/22 Mona Tian MD [address] [place], [place] [address] Assigned OBGYN Provider 08/03/20 Brett Torres MD [facility] 86857 [facility] 255 [place], [place] [address] Assigned Behavioral Health Provider 07/14/21 01/02/23 Karen Galvan PA-C 6363 [facility] 103 [place], [place] [address] Assigned Sleep Provider 09/01/21 Marie Lawrence [facility] 5775 [facility] 200 [place] [address] Assigned MTM Pharmacist 04/05/22 documented as of this encounter
--- OUTSIDE RECORDS SUMMARY | 2023-11-10 09:26 | XMS_ITS | Encounter Summary ---
Author Name Unknown Organization [place] Address [address] [place] [address] Care Team Providers Care Regulatory Law Specialist Name Role Phone Andrez Krause PA-C Primary Care Provider Andrez Krause PA-C Unavailable [phone] Mona Tian MD Unavailable [phone] Heaven Brunson PA-C Primary Care Provider Brett Torres MD Unavailable [phone] Karen Galvan PA-C Unavailable + [phone] Marie Lawrence [facility] Unavailable [phone] Encounter Details Date Type Department Care Team (Late st Contact Info) Description 07/13/2020 [facility] Medical [facility] [address] [address] [facility] Social History Tobacco Use Types Packs/Day Years Used Date Smoking Tobacco: Never Smokeless Tobacco: Never Alcohol Use Standard Drinks/Week Comments Yes 0 (1 standard drink = 0.6 oz pur e alcohol) Social, rare PHQ-2 Answer Date Recorded PHQ-2 Score 3 02/17/2019 Sex and Gender Information Value Date Recorded Sex Assigned at Female 11/04/2018 8:36 AM ASSET PROTECTION SPECIALIST Gender Identity Female 11/04/2018 8:36 AM ASSET PROTECTION SPECIALIST Sexual Orientation Straight 11/04/2018 8: 36 AM ASSET PROTECTION SPECIALIST documented as of this encounter Plan of Treatment Not on file documented as of this encounter Visit Diagnoses Not on filedocumented in this encounter Additional Health Concerns Assessment Noted Time PHQ-9 Depression Total Score: 23 2 019 9:13 AM CDT documented as of this encounter Care Teams Regulatory Law Specialist Relationship Specialty Start Date End Date Andrez Krause PA-C PCP - General Physician Cafeteria Team Leader - Medical 10/09/15 05/29/21 Heaven Brunson PA-C [facility] [address] [place] [address] PCP - General Physician Cafeteria Team Leader 05/30/21 Andrez Krause PA-C [address] [place] [address] Assigned PCP 09/13/15 06/20/22 Mona Tian MD [address] [place] [address] Assigned OBGYN Provider 08/03/20 Brett Torres MD [facility] 55386 [facility] 255 [place], [place] [address] Assigned Behavioral Health Provider 07/14/21 01/02/23 Karen Galvan PA-C 6363 [facility] 103 [place] [address] Assigned Sleep Provider 09/01/21 Marie Lawrence [facility] 5775 [facility] 200 [place], [place] [address] Assigned MTM Pharmacist 04/05/22 documented as of this encounter
--- OUTSIDE RECORDS SUMMARY | 2023-11-10 09:26 | XMS_ITS | Encounter Summary ---
Author Name Unknown Organization [place] Address [address] [place] [address] Care Team Providers Care Weatherization Field Technician Name Role Phone Andrez Krause PA-C Primary Care Provider Andrez Krause PA-C Unavailable [phone] Mona Tian MD Unavailable [phone] Heaven Brunson PA-C Primary Care Provider Brett Torres MD Unavailable [phone] Karen Galvan PA-C Unavailable [phone] Marie Lawrence [facility] Unavailable Reason for Visit * Reason Onset Date Comments Headache 04/12/2020 Encounter Details Date Type Department Care Team (Late st Contact Info) Description 04/12/2020 MyC Medical Advice [address], [address] [place] [address] Andrez Krause PA-C [address] [place] [address] Headache Social History Tobacco Use Types Packs/Day Years Used Date Smoking Tobacco: Never Smokeless Tobacco: Never Alcohol Use Standard Drinks/Week Comments Yes 0 (1 standard drink = 0.6 oz pur e alcohol) Social, rare PHQ-2 Answer Date Recorded PHQ-2 Score 3 02/17/2019 Sex and Gender Information Value Date Recorded Sex Assigned at Female 11/04/2018 8:36 AM SILK EXAMINER Gender Identity Female 11/04/2018 8:36 AM SILK EXAMINER Sexual Orientation Straight 11/04/2018 8: 36 AM SILK EXAMINER documented as of this encounter Miscellaneous Notes * Telephone Encounter - Bradford Grijalva MD - 04/13/2020 1:44 PM CDT RN OK to sign once pharmacy confirmed Bradford Grijalva MD * Telephone Encounter - Constantin Warren RN - 04/12/2020 10:25 AM CDT Nimia message sent to patient. Constantin Denise RN [...] documented as of this encounter Care Teams Weatherization Field Technician Relationship Specialty Start Date End Date Andrez Krause PA-C PCP - General Physician Filler Picker - Medical 10/09/15 05/29/21 Heaven Brunson PA-C [facility] [address] [address] PCP - General Physician Filler Picker 05/30/21 Andrez Krause PA-C [address] [place] [address] Assigned PCP 09/13/15 06/20/22 Mona Tian MD [address] [place] [address] Assigned OBGYN Provider 08/03/20 Brett Torres [facility] 13547 [facility] 255 [place], [place] [address] Assigned Behavioral Health Provider 07/14/21 01/02/23 Karen Galvan PA-C [address] [facility] 103 [place] [address] Assigned Sleep Provider 09/01/21 Marie Lawrence, [facility] 5775 [facility] 200 [place], [place] [address] Assigned MTM Pharmacist 04/05/22 documented as of this encounter
--- OUTSIDE RECORDS SUMMARY | 2023-11-10 09:26 | XMS_ITS | Encounter Summary ---
Author Name Unknown Organization [facility] Address [address] [place] [address] Care Team Providers Care Full Stack Php Developer Name Role Phone Andrez Krause PA-C Primary Care Provider Andrez Krause PA-C Unavailable [phone] Mona Tian MD Unavailable [phone] Heaven Brunson PA-C Primary Care Provider Brett Torres MD Unavailable +[phone] Karen Galvan PA-C Unavailable + [phone] Marie Lawrence [facility] Unavailable [phone] Reason for Visit * Reason Onset Date Comments Medication Refill 04/06/2019 venlafaxine (E FFEXOR-XR) 75 MG 24 hr capsule Encounter Details Date Type Department Care Team (Late st Contact Info) Description 04/05/[address], [address] [place] [address] Andrez Krause PA-C [address] [place] [address] Medication Refill (venlafaxine (EFFEXOR-XR) 75 [...] Sex Assigned at Female 11/04/2018 8:36 AM SPACE OPERATIONS OFFICER Gender Identity Female 11/04/2018 8:36 AM SPACE OPERATIONS OFFICER Sexual Orientation Straight 11/04/2018 8: 36 AM SPACE OPERATIONS OFFICER documented as of this encounter Miscellaneous Notes [...] range. I refilled the #90 tabs. Andrez Arango * Telephone Encounter - Flor Bills RN [...] documented as of this encounter Care Teams Full Stack Php Developer Relationship Specialty Start Date End Date Andrez Krause PA-C PCP - General Physician Architect Manager - Medical 10/09/15 05/29/21 Heaven Brunson PA-C [facility] [address] [place] [address] PCP - General Physician Architect Manager 05/30/21 Andrez Krause PA-C [address] [place] [address] Assigned PCP 09/13/15 06/20/22 Mona Tian MD [address] [place], [place] [address] Assigned OBGYN Provider 08/03/20 Brett Torres [facility] [address] [facility] 255 [place] [address] Assigned Behavioral Health Provider 07/14/21 01/02/23 Karen Galvan PA-C [address] [facility] 103 [place] [address] Assigned Sleep Provider 09/01/21 Marie Lawrence, [facility] 5775 [facility] 200 [place] [address] Assigned MTM Pharmacist 04/05/22 documented as of this encounter
--- OUTSIDE RECORDS SUMMARY | 2023-11-10 09:26 | XMS_ITS | Encounter Summary ---
Author Name Unknown Organization [facility] Address [address] [place] [address] Care Team Providers Care Scanning Clerk Name Role Phone Andrez Krause PA-C Primary Care Provider Andrez Krause PA-C Unavailable + [phone] Andrez Krause PA-C Unavailable + [phone] Mona Tian MD Unavailable [phone] Heaven Brunson PA-C Primary Care Provider Brett Torres MD Unavailable [phone] Karen Galvan PA-C Unavailable + [phone] Marie Lawrence [facility] Unavailable [phone] Reason for Visit * Reason Onset Date Comments Medication Request 12/07/2018 Atomoxetine 6 0mg Encounter Details Date Type Department Care Team (Late st Contact Info) Description 12/07/2018 [facility] Medical Advice [address], [address] [place] [address] Andrez Krause PA-C [address] [place] [address] Medication Request (Atomoxetine 60mg) Social History Tobacco Use Types Packs/Day Years Used Date Smoking Tobacco: Never Smokeless Tobacco: Never Alcohol Use Standard Drinks/Week Comments Yes 0 (1 standard drink = 0.6 oz pur e alcohol) Social, rare PHQ-2 Answer Date Recorded PHQ-2 Score 6 10/19/2018 Sex and Gender Information Value Date Recorded Sex Assigned at Female 11/04/2018 8:36 AM PIPE ROLLER Gender Identity Female 11/04/2018 8:36 AM PIPE ROLLER Sexual Orientation Straight 11/04/2018 8: 36 AM PIPE ROLLER documented as of this encounter Miscellaneous Notes * Telephone Encounter - Andrez Krause PA-C - 12/09/2018 8:35 AM PIPE ROLLER Of course just getting to this now. Likely would not have had time to do a PA anyway? I can send the refill and see what happens. Andrez ROLLER * Telephone Encounter - Nalini Conte RN - 12/07/2018 3:32 PM CST Images from the original note were not included. 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 documented in this encounter Additional Health Concerns Assessment Noted Time PHQ-9 Depression Total Score: 21 019 5:05 PM PIPE ROLLER documented as of this encounter Care Teams Scanning Clerk Relationship Specialty Start Date End Date Andrez Krause PA-C PCP - General Physician Hydroelectric Station Operator Chief - Medical 10/09/15 05/29/21 Andrez Krause PA-C [address] [place] [address] PCP - Assigned PCP 09/13/15 12/14/18 Heaven Brunson PA-C [facility] [address] [place] [address] PCP - General Physician Hydroelectric Station Operator Chief 05/30/21 Andrez Krause PA-C [address] [place] [address] Assigned PCP 09/13/15 06/20/22 Mona Tian MD [address] [place], [place] [address] Assigned OBGYN Provider 08/03/20 Brett Torres [facility] [address] [facility] [address] [place], [place] [address] Assigned Behavioral Health Provider 07/14/21 01/02/23 Karen Galvan PA-C [address] [facility] 103 [place], [place] [address] Assigned Sleep Provider 09/01/21 Marie Lawrence, [facility] 5775 [facility] 200 [place], [place] [id number] Assigned MTM Pharmacist 04/05/22 documented as of this encounter
--- OUTSIDE RECORDS SUMMARY | 2023-11-10 09:26 | XMS_ITS | Encounter Summary ---
Author Name Unknown Organization [facility] Address [address] [place] [address]. [place] [address] Care Team Providers Care Boat Finisher Name Role Phone Andrez Krause PA-C Primary Care Provider Andrez Krause PA-C Unavailable [phone] Mona Tian MD Unavailable [phone] Heaven Brunson PA-C Primary Care Provider Brett Torres MD Unavailable [phone] Karen Galvan PA-C Unavailable + [phone] Marie Lawrence [facility] Unavailable [phone] Encounter Details Date Type Department Care Team (Late st Contact Info) Description 05/22/2019 My[facility] Medical Advice [address], [address] [place] [address] Andrez Krause PA-C [address] [place] [address] Social History Tobacco Use Types Packs/Day Years Used Date Smoking Tobacco: Never Smokeless Tobacco: Never Alcohol Use Standard Drinks/Week Comments Yes 0 (1 standard drink = 0.6 oz pur e alcohol) Social, rare PHQ-2 Answer Date Recorded PHQ-2 Score 3 02/17/2019 Sex and Gender Information Value Date Recorded Sex Assigned at Female 11/04/2018 8:36 AM HOUSEKEEPER HEAD Gender Identity Female 11/04/2018 8:36 AM HOUSEKEEPER HEAD Sexual Orientation Straight 11/04/2018 8: 36 AM HOUSEKEEPER HEAD documented as of this encounter Plan of Treatment Not on file documented as of this encounter Visit Diagnoses Not on filedocumented in this encounter Additional Health Concerns Assessment Noted Time PHQ-9 Depression Total Score: 23 019 9:13 AM CDT documented as of this encounter Care Teams Boat Finisher Relationship Specialty Start Date End Date Andrez Krause PA-C PCP - General Physician Concrete Crusher Loader Operator - Medical 10/09/15 05/29/21 Heaven Brunson PA-C [facility] [address] [place] [address] PCP - General Physician Concrete Crusher Loader Operator 05/30/21 Andrez Krause PA-C [address] [place] [address] Assigned PCP 09/13/15 06/20/22 Mona Tian MD [address] [place], [place] [address] Assigned OBGYN Provider 08/03/20 Brett Torres [facility] [address] [facility] 255 [place], [place] [address] Assigned Behavioral Health Provider 07/14/21 01/02/23 Karen Galvan PA-C 6363 [facility] 103 [place], [place] [address] Assigned Sleep Provider 09/01/21 Marie Lawrence [facility] 5775 [facility] 200 [place] [address] Assigned MTM Pharmacist 04/05/22 documented as of this encounter
--- OUTSIDE RECORDS SUMMARY | 2023-11-10 09:26 | XMS_ITS | Encounter Summary ---
Author Name Unknown Organization [facility] Address [address] [place] [address] Care Team Providers Care Dry Mill Worker Name Role Phone Andrez Krause PA-C Primary Care Provider Andrez Krause PA-C Unavailable + [phone] Andrez Krause PA-C Unavailable + [phone] Mona Tian MD Unavailable [phone] Heaven Brunson PA-C Primary Care Provider Brett Torres MD Unavailable [phone] Karen Galvan PA-C Unavailable + [phone] Marie Lawrence [facility] Unavailable [phone] Reason for Visit * Reason Onset Date Comments Forms 12/13/2018 Unemployment Encounter Details Date Type Department Care Team (Late st Contact Info) Description 12/13/2018 My[facility] Medical Advice [address], [address] [place] [address] Andrez Krause PA-C [address] [place] [address] Forms (Unemployment) Social History Tobacco Use Types Packs/Day Years Used Date Smoking Tobacco: Never Smokeless Tobacco: Never Alcohol Use Standard Drinks/Week Comments Yes 0 (1 standard drink = 0.6 oz pur e alcohol) Social, rare PHQ-2 Answer Date Recorded PHQ-2 Score 6 10/19/2018 Sex and Gender Information Value Date Recorded Sex Assigned at Female 11/04/2018 8:36 AM MANAGER DIESEL Gender Identity Female 11/04/2018 8:36 AM MANAGER DIESEL Sexual Orientation Straight 11/04/2018 8: 36 AM MANAGER DIESEL documented as of this encounter Miscellaneous Notes * Telephone Encounter - Andrez Krause PA-C - 12/16/2018 12:56 PM MANAGER DIESEL OK, first dose is to do 240mg followed by 120mg monthly after that. I'll do the first Rx now. Thanks! Andrez GER DIESEL * Telephone Encounter - Nalini Conte RN - 12/16/2018 12:06 PM CST Please approve rx for EMGALITY as patient is willing to give it a try. She will quill picking machine operator the card to you have provider for the 12 month free. Nalini Conte RN GER DIESEL * Telephone Encounter - Nalini Conte RN - 12/16/2018 11:28 AM CST Form faxed to [phone]. Copy placed in abstracting. Original in my in-basket waiting for patient to let us know if she would like to quill picking machine operator copy of have us mail it to her. I also have the Emgality Savings Card for patient in my in-basket if patient is interested in it. Waiting for patient to let us know about this as well. Nalini Conte RN GER DIESEL * Telephone Encounter - Andrez Krause PA-C - 12/15/2018 2:39 PM MANAGER DIESEL OK, Ill get it signed. Andrez GER DIESEL * Telephone Encounter - Nalini Conte RN - 12/15/2018 1:20 PM CST This message was not routed to you as there was already a phone message created for the form. This is NOT a permanent disability from what I can see. Nalini Conte, RN GER DIESEL * Telephone Encounter - Andrez Krause PA-C - 12/15/2018 12:52 PM MANAGER DIESEL Hey! I see this in my actual basket now, but was it routed to me? I'm not signing for any permamentdisability am I? Just for dates gone at this point? Just wondering when looking at the form.... I can sign it otherwise and she can pick it up LYSSA. Andrez GER DIESEL documented in this encounter Plan of Treatment Not on file documented as of this encounter Visit Diagnoses Diagnosis Migraine without aura and without status migrainosus, not intractable- Primary Migraine without aura, without mention of intractable migraine without mention of status migrainosus documented in this encounter Additional Health Concerns Assessment Noted Time PHQ-9 Depression Total Score: 019 5:05 PM MANAGER DIESEL documented as of this encounter Care Teams Dry Mill Worker Relationship Specialty Start Date End Date Andrez Krause PA-C PCP - General Physician Sandfill Operator - Medical 10/09/15 05/29/21 Andrez Krause PA-C [address] [place] [address] PCP - Assigned PCP 09/13/15 12/14/18 Heaven Brunson PA-C [facility] [address] [place] [address] PCP - General Physician Sandfill Operator 05/30/21 Andrez Krause PA-C [address] [place] [address] Assigned PCP 09/13/15 06/20/22 Mona Tian MD [address] [place] [address] Assigned OBGYN Provider 08/03/20 Brett Torres [facility] [address] [facility] 255 [place], [place] [address] Assigned Behavioral Health Provider 07/14/21 01/02/23 Karen Galvan PA-C [address] [facility] 103 [place] [address] Assigned Sleep Provider 09/01/21 Marie Lawrence, [facility] 5775 [facility] 200 [place] [address] Assigned MTM Pharmacist 04/05/22 documented as of this encounter
--- OUTSIDE RECORDS SUMMARY | 2023-11-10 09:26 | XMS_ITS | Encounter Summary ---
Author Name Unknown Organization [facility] Address [address] [place] [address] Care Team Providers Care Relay Tester Name Role Phone Andrez Krause PA-C Primary Care Provider Andrez Krause PA-C Unavailable [phone] Mona Tian MD Unavailable [phone] Heaven Brunson PA-C Primary Care Provider Brett Torres MD Unavailable [phone] Karen Galvan PA-C Unavailable [phone] Marie Lawrence [facility] Unavailable [phone] Reason for Visit * Reason Onset Date Comments Refill Request 01/10/2019 Emgality Encounter Details Date Type Department Care Team (Late st Contact Info) Description 01/10/2019 MyC Medical Advice [address], [address] [place] [address] Andrez Krause PA-C [address] [place] [address] Refill Request (Emgality) Social History Tobacco Use Types Packs/Day Years Used Date Smoking Tobacco: Never Smokeless Tobacco: Never Alcohol Use Standard Drinks/Week Comments Yes 0 (1 standard drink = 0.6 oz pur e alcohol) Social, rare PHQ-2 Answer Date Recorded PHQ-2 Score 6 10/19/2018 Sex and Gender Information Value Date Recorded Sex Assigned at Female 11/04/2018 8:36 AM ORCHARD WORKER Gender Identity Female 11/04/2018 8:36 AM ORCHARD WORKER Sexual Orientation Straight 11/04/2018 8: 36 AM ORCHARD WORKER documented as of this encounter Miscellaneous Notes [...] (EMGALITY) 120 MG/ML injection Class: E-Prescribe Order: [id number] E-Prescribing Status: Receipt confirmed by pharmacy (12/16/2018 12:57 PM ORCHARD WORKER) Last OV 2.14.19 for migraine, received Toradol inj and prednisone Andrez Krause PA-C Physician Meter Tester Signed Creation Time: 12/16/2018 12:56 PM OK, first dose is to do 240mg followed by 120mg monthly after that. I'll do the first Rx now. ?? Thanks! Nalini Bunn, RN Registered Nurse Signed Creation Time: 12/16/2018 12:06 PM Please approve rx for EMGALITY as patient is willing to give it a try. She will worm picker the card to you have provider for the 12 month free. ?? Nalini Conte RN LM for pt to schedule appt with provider to review medication Geraldine Chavarria RN, BS Clinical Nurse Triage. * Telephone Encounter - Jeanne Phillips MD - 01/10/2019 9:35 AM CDT She has not see the provider for this rx. She ordered via [facility] about 1 month ago. [facility]. Thank you * Telephone Encounter - Nalini Conte RN - 01/10/2019 8:52 AM CDT Emgality 120mg/ml Last Written Prescription Date: 12/16/2018 Last Fill Quantity: 2ml, # refills: 0 Last Office Visit: 11/25/2018 Future Office visit: Routing refill request to provider for review/approval because: Drug not on the G, P or [facility] refill protocol or controlled substance Nalini Conte [...] PHQ-9 Depression Total Score: 019 5:05 PM ORCHARD WORKER documented as of this encounter Care Teams Relay Tester Relationship Specialty Start Date End Date Andrez Krause PA-C PCP - General Physician Meter Tester - Medical 10/09/15 05/29/21 Heaven Brunson PA-C [facility] [address] [place] [address] PCP - General Physician Meter Tester 05/30/21 Andrez Krause PA-C [address] [place] [address] Assigned PCP 09/13/15 06/20/22 Mona Tian MD [address] [place], [place] [address] Assigned OBGYN Provider 08/03/20 Brett Torres MD [facility] [address] [facility] 255 [place] [address] Assigned Behavioral Health Provider 07/14/21 01/02/23 Karen Galvan PA-C [address] [facility] 103 [place], [place] [address] Assigned Sleep Provider 09/01/21 Marie Lawrence, [facility] 5775 [facility] 200 [place] [address] Assigned MTM Pharmacist 04/05/22 documented as of this encounter
--- OUTSIDE RECORDS SUMMARY | 2023-11-10 09:26 | XMS_ITS | Encounter Summary ---
Author Name Unknown Organization [facility] Address [address] [place] [address] Care Team Providers Care Manager Financial Services Name Role Phone Andrez Krause PA-C Primary Care Provider Andrez Krause PA-C Unavailable + [phone] Andrez Krause PA-C Unavailable + [phone] Mona Tian MD Unavailable [phone] Heaven Brunson PA-C Primary Care Provider Brett Torres MD Unavailable [phone] Karen Galvan PA-C Unavailable + [phone] Marie Lawrence [facility] Unavailable [phone] Reason for Visit * Reason Onset Date Comments Headache 11/30/2018 update Encounter Details Date Type Department Care Team (Late st Contact Info) Description 11/30/2018 My[facility] Medical Advice [address], [address] [place] [address] Andrez Krause PA-C [address] [place] [address] Headache (update) Social History Tobacco Use Types Packs/Day Years Used Date Smoking Tobacco: Never Smokeless Tobacco: Never Alcohol Use Standard Drinks/Week Comments Yes 0 (1 standard drink = 0.6 oz pur e alcohol) Social, rare PHQ-2 Answer Date Recorded PHQ-2 Score 6 10/19/2018 Sex and Gender Information Value Date Recorded Sex Assigned at Female 11/04/2018 8:36 AM LINEWORKER Gender Identity Female 11/04/2018 8:36 AM LINEWORKER Sexual Orientation Straight 11/04/2018 8: 36 AM LINEWORKER documented as of this encounter Plan of Treatment Not on file documented as of this encounter Visit Diagnoses Diagnosis Migraine without aura and without status migrainosus, not intractable- Primary Migraine without aura, without mention of intractable migraine without mention of status migrainosus documented in this encounter Additional Health Concerns Assessment Noted Time PHQ-9 Depression Total Score: 019 5:05 PM LINEWORKER documented as of this encounter Care Teams Manager Financial Services Relationship Specialty Start Date End Date Andrez Krause PA-C PCP - General Physician Drum Sprayer - Medical 10/09/15 05/29/21 Andrez Krause PA-C [address] [place] [address] PCP - Assigned PCP 09/13/15 12/14/18 Heaven Brunson PA-C [facility] [address] [address] PCP - General Physician Drum Sprayer 05/30/21 Andrez Krause PA-C [address] [place] [address] Assigned PCP 09/13/15 06/20/22 Mona Tian MD [address] [place], [place] [address] Assigned OBGYN Provider 08/03/20 Brett Torres [facility] [address] [place] [address] Assigned Behavioral Health Provider 07/14/21 01/02/23 Karen Galvan PA-C [address] [facility] 103 [place] [address] Assigned Sleep Provider 09/01/21 Marie Lawrence, [facility] 5775 [facility] 200 [place], [place] [id number] Assigned MTM Pharmacist 04/05/22 documented as of this encounter
--- OUTSIDE RECORDS SUMMARY | 2023-11-10 09:26 | XMS_ITS | Encounter Summary ---
Author Name Unknown Organization [facility] Address [address] [place] [address]. [place] [address] Care Team Providers Care Lab Technician Name Role Phone Andrez Krause PA-C Primary Care Provider Andrez Krause PA-C Unavailable [phone] Mona Tian MD Unavailable [phone] Heaven Brunson PA-C Primary Care Provider Brett Torres MD Unavailable [phone] Karen Galvan PA-C Unavailable + [phone] Marie Lawrence [facility] Unavailable [phone] Encounter Details Date Type Department Care Team (Late st Contact Info) Description 01/23/2019 MyC Medical Advice [address], [address] [place] [address] Andrez Krause PA-C [address] [place] [address] Social History Tobacco Use Types Packs/Day Years Used Date Smoking Tobacco: Never Smokeless Tobacco: Never Alcohol Use Standard Drinks/Week Comments Yes 0 (1 standard drink = 0.6 oz pur e alcohol) Social, rare PHQ-2 Answer Date Recorded PHQ-2 Score 6 10/19/2018 Sex and Gender Information Value Date Recorded Sex Assigned at Female 11/04/2018 8:36 AM MACHINIST SUPERVISOR Gender Identity Female 11/04/2018 8:36 AM MACHINIST SUPERVISOR Sexual Orientation Straight 11/04/2018 8: 36 AM MACHINIST SUPERVISOR documented as of this encounter Plan of Treatment Not on file documented as of this encounter Visit Diagnoses Not on filedocumented in this encounter Additional Health Concerns Assessment Noted Time PHQ-9 Depression Total Score: 019 5:05 PM MACHINIST SUPERVISOR documented as of this encounter Care Teams Lab Technician Relationship Specialty Start Date End Date Andrez Krause PA-C PCP - General Physician Worm Grower - Medical 10/09/15 05/29/21 Heaven Brunson PA-C [facility] [address] [place] [address] PCP - General Physician Worm Grower 05/30/21 Andrez Krause PA-C [address] [place] [address] Assigned PCP 09/13/15 06/20/22 Mona Tian MD [address] [place], [place] [address] Assigned OBGYN Provider 08/03/20 Brett Torres [facility] [address] [facility] 255 [place], [place] [address] Assigned Behavioral Health Provider 07/14/21 01/02/23 Karen Galvan PA-C 6363 [facility] 103 [place], [place] [address] Assigned Sleep Provider 09/01/21 Marie Lawrence [facility] 5775 [facility] 200 [place] [address] Assigned MTM Pharmacist 04/05/22 documented as of this encounter
--- OUTSIDE RECORDS SUMMARY | 2023-11-10 09:26 | XMS_ITS | Encounter Summary ---
Author Name Unknown Organization [facility] Address [address] [place] [address] Care Team Providers Care Oil Field Equipment Mechanic Name Role Phone Andrez Krause PA-C Primary Care Provider Andrez Krause PA-C Unavailable [phone] Andrez Krause PA-C Unavailable [phone] Mona Tian MD Unavailable [phone] Heaven Brunson PA-C Primary Care Provider Brett Torres MD Unavailable [phone] Karen Galvan PA-C Unavailable [phone] Marie Lawrence [facility] Unavailable [phone] Encounter Details Date Type Department Care Team (Late st Contact Info) Description 12/11/2018 MyC Medical Advice [facility] [address] [place] [address] Josefina Diop, WEATHER ANALYST [place] MACHINE OPERATOR Social History Tobacco Use Types Packs/Day Years Used Date Smoking Tobacco: Never Smokeless Tobacco: Never Alcohol Use Standard Drinks/Week Comments Yes 0 (1 standard drink = 0.6 oz pur e alcohol) Social, rare PHQ-2 Answer Date Recorded PHQ-2 Score 6 10/19/2018 Sex and Gender Information Value Date Recorded Sex Assigned at Female 11/04/2018 8:36 AM WRAPPER AND PRESERVER Gender Identity Female 11/04/2018 8:36 AM WRAPPER AND PRESERVER Sexual Orientation Straight 11/04/2018 8: 36 AM WRAPPER AND PRESERVER documented as of this encounter Plan of Treatment Not on file documented as of this encounter Visit Diagnoses Not on filedocumented in this encounter Additional Health Concerns Assessment Noted Time PHQ-9 Depression Total Score: 21 019 5:05 PM WRAPPER AND PRESERVER documented as of this encounter Care Teams Oil Field Equipment Mechanic Relationship Specialty Start Date End Date Andrez Krause PA-C PCP - General Physician Acquisition Consultant - Medical 10/09/15 05/29/21 Andrez Krause PA-C [address] [place] [address] PCP - Assigned PCP 09/13/15 12/14/18 Heaven Brunson PA-C [facility] [address] [place] [address] PCP - General Physician Acquisition Consultant 05/30/21 Andrez Krause PA-C [address] [place] [address] Assigned PCP 09/13/15 06/20/22 Mona Tian MD [address] [place] [address] Assigned OBGYN Provider 08/03/20 Brett Torres [facility] 12696 [facility] 255 [place], [place] [address] Assigned Behavioral Health Provider 07/14/21 01/02/23 Karen Galvan PA-C 6363 [facility] 103 [place] [address]175 Assigned Sleep Provider 09/01/21 Marie Lawrence, [facility] EPILEPSY [facility] [address] [address] Assigned MTM Pharmacist 04/05/22 documented as of this encounter
--- OUTSIDE RECORDS SUMMARY | 2023-11-10 09:26 | XMS_ITS | Encounter Summary ---
Author Name Unknown Organization [facility] Address [address] [place] [address] Care Team Providers Care Refinery Operator Visbreaking Name Role Phone Andrez Krause PA-C Primary Care Provider Andrez Krause PA-C Unavailable [phone] Mona Tian MD Unavailable [phone] Heaven Brunson PA-C Primary Care Provider Brett Torres MD Unavailable [phone] Karen Galvan PA-C Unavailable [phone] Marie Lawrence [facility] Unavailable [phone] Reason for Visit * Reason Onset Date Comments IUD 12/06/2019 Concerns Encounter Details Date Type Department Care Team (Late st Contact Info) Description 12/06/2019 MyC Medical Advice [address], [address] [place] [address] Andrez Krause PA-C [address] [place] [address] IUD (Concerns) Social History Tobacco Use Types Packs/Day Years Used Date Smoking Tobacco: Never Smokeless Tobacco: Never Alcohol Use Standard Drinks/Week Comments Yes 0 (1 standard drink = 0.6 oz pur e alcohol) Social, rare PHQ-2 Answer Date Recorded PHQ-2 Score 3 02/17/2019 Sex and Gender Information Value Date Recorded Sex Assigned at Female 11/04/2018 8:36 AM MEDICAL PATHOLOGY TEACHER Gender Identity Female 11/04/2018 8:36 AM MEDICAL PATHOLOGY TEACHER Sexual Orientation Straight 11/04/2018 8: 36 AM MEDICAL PATHOLOGY TEACHER documented as of this encounter Miscellaneous Notes * Telephone Encounter - Andrez Krause PA-C - 12/07/2019 10:42 AM MEDICAL PATHOLOGY TEACHER She can come in for a visit. May not need it actually physically checked. Sometimes we can give OCP's or progesterone to stop bleeding that has been prolonged. Phone or evisit may still work for this. Andrez Arango CAL PATHOLOGY TEACHER documented in this encounter Plan of Treatment Not on file documented as of this encounter Visit Diagnoses Not on filedocumented in this encounter Additional Health Concerns Assessment Noted Time PHQ-9 Depression Total Score: 23 019 9:13 AM CDT documented as of this encounter Care Teams Refinery Operator Visbreaking Relationship Specialty Start Date End Date Andrez Krause PA-C PCP - General Physician Electronic Console Display Operator - Medical 10/09/15 05/29/21 Heaven Brunson PA-C [facility] [address] [place] [address] PCP - General Physician Electronic Console Display Operator 05/30/21 Andrez Krause PA-C [address] [place] [address] Assigned PCP 09/13/15 06/20/22 Mona Tian MD [address] [place] [address] Assigned OBGYN Provider 08/03/20 Brett Torres [facility] [address] [place] [address] Assigned Behavioral Health Provider 07/14/21 01/02/23 Karen Galvan PA-C [address] [facility] 103 [place] [address] Assigned Sleep Provider 09/01/21 Marie Lawrence [facility] 5775 [facility] 200 [place], [place] [address] Assigned MTM Pharmacist 04/05/22 documented as of this encounter
--- OUTSIDE RECORDS SUMMARY | 2023-11-10 09:26 | XMS_ITS | Encounter Summary ---
Author Name Unknown Organization [facility] Address [address] [place] [address] Care Team Providers Care Waste Water Treatment Plant Operator Name Role Phone KrauseAndrez baptiste PA-C Unavailable [phone] Mona Tian MD Unavailable [phone] Heaven Brunson PA-C Primary Care Provider Brett Torres MD Unavailable [phone] Karen Galvan PA-C Unavailable + [phone] Marie Lawrence [facility] Unavailable [phone] Encounter Details Date Type Department Care Team (Late st Contact Info) Description 06/05/2021 MyC Medical Advice [facility] [address] [facility] [address] [place] [address] Mendel Patricia Social History Tobacco [...] Sex Assigned at Female 11/04/2018 8:36 AM INSOLE DOUBLER Gender Identity Female 11/04/2018 8:36 AM INSOLE DOUBLER Sexual Orientation Straight 11/04/2018 8: 36 AM INSOLE DOUBLER documented as of this encounter Plan of Treatment Not on file documented as of this encounter Visit Diagnoses Not on filedocumented in this encounter Additional Health Concerns Assessment Noted Time PHQ-9 Depression Total Score: 22 021 7:02 AM CDT documented as of this encounter Care Teams Waste Water Treatment Plant Operator Relationship Specialty Start Date End Date Heaven Brunson PA-C [facility] [address] [place] [address] PCP - General Physician Varnish Maker 05/30/21 Andrez Krause PA-C [address] [place] [address] Assigned PCP 09/13/15 06/20/22 Mona Tian MD [address] [place] [address] Assigned OBGYN Provider 08/03/20 Brett Torres [facility] [address] [facility] 255 [place], [place] [address] Assigned Behavioral Health Provider 07/14/21 01/02/23 Karen Galvan PA-C 6363 [facility] 103 [place] [address] Assigned Sleep Provider 09/01/21 Marie Lawrence, [facility] 5775 [facility] [address] [place] [address] Assigned MTM Pharmacist 04/05/22 documented as of this encounter
--- OUTSIDE RECORDS SUMMARY | 2023-11-10 09:27 | XMS_ITS | Encounter Summary ---
Author Name Unknown Organization [facility] Address [address] [place] [address] Care Team Providers Care Internal Specialist Name Role Phone Andrez Krause PA-C Primary Care Provider Andrez Krause PA-C Unavailable [phone] Andrez Krause PA-C Unavailable [phone] Mona Tian MD Unavailable [phone] Heaven Brunson PA-C Primary Care Provider Brett Torres MD Unavailable [phone] Karen Galvan PA-C Unavailable + [phone] Marie Lawrence [facility] Unavailable [phone] Reason for Visit * Reason Onset Date Comments MyChart Communication 10/22/2016 PHQ-9, due for depression follow up Encounter Details Date Type Department Care Team (Latest Contact Info) Description 10/22/2016 MyC Medical Advice [address], [address] [place] [address] Marnie Mabry MA MyChart Communication (PHQ-9, due for depr... Social History Tobacco Use Types Packs/Day Years Used Date Smoking Tobacco: Never Smokeless Tobacco: Never Alcohol Use Standard Drinks/Week Comments Yes 0 (1 standard drink = 0.6 oz pur e alcohol) socially Sex and Gender Information Value Date Recorded Sex Assigned at Female 11/04/2018 8:36 AM PROMOTIONAL ADVERTISING ASSISTANT Gender Identity Female 11/04/2018 8:36 AM PROMOTIONAL ADVERTISING ASSISTANT Sexual Orientation Straight 11/04/2018 8: 36 AM PROMOTIONAL ADVERTISING ASSISTANT documented as of this encounter Plan of Treatment Not on file documented as of this encounter Visit Diagnoses Not on filedocumented in this encounter Additional Health Concerns Assessment Noted Time PHQ-9 Depression Total Score: 21 016 7:20 AM CDT documented as of this encounter Care Teams Internal Specialist Relationship Specialty Start Date End Date Andrez Krause PA-C PCP - General Physician Hot Walker - Medical 10/09/15 05/29/21 Andrez Krause PA-C [address] [place] [address] PCP - Assigned PCP 09/13/15 12/14/18 Heaven Brunson PA-C [facility] [address] [address] PCP - General Physician Hot Walker 05/30/21 Andrez Krause PA-C [address] [place] [address] Assigned PCP 09/13/15 06/20/22 Mona Tian MD [address] [place] [address] Assigned OBGYN Provider 08/03/20 Brett Torres [facility] 324[address] [facility] 255 [place], [place] [address] Assigned Behavioral Health Provider 07/14/21 01/02/23 Karen Galvan PA-C [address] [address] Assigned Sleep Provider 09/01/21 Marie Lawrence, [facility] 5775 [facility] 200 [place], [place] [address] Assigned MTM Pharmacist 04/05/22 documented as of this encounter
--- OUTSIDE RECORDS SUMMARY | 2023-11-10 09:27 | XMS_ITS | Encounter Summary ---
Author Name Unknown Organization [facility] Address [address] [place] [address] Care Team Providers Care Boot And Shoe Repairman Name Role Phone Andrez Krause PA-C Primary Care Provider Andrez Krause PA-C Unavailable [phone] Andrez Krause PA-C Unavailable [phone] Mona Tian MD Unavailable [phone] Heaven Brunson PA-C Primary Care Provider Brett Torres MD Unavailable [phone] Karen Galvan PA-C Unavailable + [phone] Marie Lawrence [facility] Unavailable [phone] Reason for Visit * Reason Comments Medication Refill gabapentin (NEURONTI N) 100 MG capsule Encounter Details Date Type Department Care Team (Late st Contact Info) Description 01/16/[address], [address] [place] [address] Andrez Krause PA-C [address] [place] [address] Medication Refill (gabapentin (NEURONTIN) 100 MG capsule) Social History Tobacco Use Types Packs/Day Years Used Date Smoking Tobacco: Never Smokeless Tobacco: Never Alcohol Use Standard Drinks/Week Comments Yes 0 (1 standard drink = 0.6 oz pur e alcohol) socially Sex and Gender Information Value Date Recorded Sex Assigned at Female 11/04/2018 8:36 AM LAWN CARE PROFESSIONAL Gender Identity Female 11/04/2018 8:36 AM LAWN CARE PROFESSIONAL Sexual Orientation Straight 11/04/2018 8: 36 AM LAWN CARE PROFESSIONAL documented as of this encounter Miscellaneous Notes * Telephone Encounter - Denia Reddy - 01/17/2017 9:02 AM CDT gabapentin (NEURONTIN) 100 MG capsule Sig: Take 1 capsule (100 mg) by mouth At Bedtime Last Written Prescription Date: 12/18/16 Last Quantity: 30, # refills: 0 Last Office Visit with [facility] or [facility] prescribing provider: 01/15/2017 Creatinine Date Value Ref [...] for review/approval because: Drug not on the [facility] or [facility] refill protocol or controlled substance TAVO Cesar [...] Depression Total Score: 24 017 7:05 AM LAWN CARE PROFESSIONAL documented as of this encounter Care Teams Boot And Shoe Repairman Relationship Specialty Start Date End Date Andrez Krause PA-C PCP - General Physician Pitching Coach - Medical 10/09/15 05/29/21 Andrez Krause PA-C [address] [place] [address] PCP - Assigned PCP 09/13/15 12/14/18 Heaven Brunson PA-C [facility] [address] [place] [address] PCP - General Physician Pitching Coach 05/30/21 Andrez Krause PA-C [address] [facility] [place] [address] Assigned PCP 09/13/15 06/20/22 Mona Tian MD [address] [place] [address] Assigned OBGYN Provider 08/03/20 Brett Torres [facility] [address]1598 [facility] 255 [place], [place] [address] Assigned Behavioral Health Provider 07/14/21 01/02/23 Karen Galvan PA-C [address] [facility] 103 [place] [address] Assigned Sleep Provider 09/01/21 Marie Lawrence, [facility] 5775 [facility] 200 [place], [place] [id number] Assigned MTM Pharmacist 04/05/22 documented as of this encounter
--- OUTSIDE RECORDS SUMMARY | 2023-11-10 09:27 | XMS_ITS | Encounter Summary ---
Author Name Unknown Organization [facility] Address [address] [place] [address] Care Team Providers Care Remote Coders Name Role Phone Andrez Krause PA-C Primary Care Provider Andrez Krause PA-C Unavailable + [phone] Andrez Krause PA-C Unavailable [phone] Mona Tian MD Unavailable [phone] Heaven Brunson PA-C Primary Care Provider Brett Torres MD Unavailable [phone] Karen Galvan PA-C Unavailable + [phone] Marie Lawrence [facility] Unavailable [phone] Reason for Visit * Reason Onset Date Comments Refill Request 07/01/2017 Methylphenidate Encounter Details Date Type Department Care Team (Late st Contact Info) Description 07/01/2017 MyC Medical Advice [address], [address] [place] [address] Andrez Krause PA-C [address] [place] [address] Refill Request (Methylphenidate) Social History Tobacco Use Types Packs/Day Years Used Date Smoking Tobacco: Never Smokeless Tobacco: Never Alcohol Use Standard Drinks/Week Comments Yes 0 (1 standard drink = 0.6 oz pur e alcohol) socially Sex and Gender Information Value Date Recorded Sex Assigned at Female 11/04/2018 8:36 AM SECURITY CLERK Gender Identity Female 11/04/2018 8:36 AM SECURITY CLERK Sexual Orientation Straight 11/04/2018 8: 36 AM SECURITY CLERK documented as of this encounter Miscellaneous Notes [...] CDT Cotyt Amanuel with Andrez Krause PA-C [facility] [address] [place] [address] Routing refill request to provider for review/approval because: Drug not on the [facility], [facility] or [facility] refill protocol or controlled substance. PRINTING ENGINEER checked 07/01/2017: 05/19/2017 GABAPENTIN 300 MG CAPSULE [...] documented as of this encounter Care Teams Remote Coders Relationship Specialty Start Date End Date Andrez Krause PA-C PCP - General Physician Roaster Operator - Medical 10/09/15 05/29/21 Andrez Krause PA-C [address] [place] [address] PCP - Assigned PCP 09/13/15 12/14/18 Heaven Brunson PA-C [facility] [address] [place], [place] [address] PCP - General Physician Roaster Operator 05/30/21 Andrez Krause PA-C [address] [address] Assigned PCP 09/13/15 06/20/22 Mona Tian MD [address] [place] [address] Assigned OBGYN Provider 08/03/20 Brett Torres [facility] [address] [facility] 255 [place], [place] [address] Assigned Behavioral Health Provider 07/14/21 01/02/23 Karen Galvan PA-C [address] [facility] 103 [place] [address] Assigned Sleep Provider 09/01/21 Marie Lawrence, [facility] 5775 [facility] 200 [place], [place] [address] Assigned MTM Pharmacist 04/05/22 documented as of this encounter
--- OUTSIDE RECORDS SUMMARY | 2023-11-10 09:27 | XMS_ITS | Encounter Summary ---
Author Name Unknown Organization [facility] Address [address] [place] [address] Care Team Providers Care Cracking Still Operator Name Role Phone Andrez Krause PA-C Primary Care Provider Andrez Krause PA-C Unavailable +[phone] Andrez Krause PA-C Unavailable [phone] Mona Tian MD Unavailable [phone] Heaven Brunson PA-C Primary Care Provider Brett Torres MD Unavailable [phone] Karen Galvan PA-C Unavailable + [phone] Marie Lawrence [facility] Unavailable +[phone] Encounter Details Date Type Department Care Team (Late st Contact Info) Description 06/11/2016 MyC Medical Advice [address], [address] [place] [address] Josefina Diop, ASSEMBLY LINE UPHOLSTERER SHOE CLEANER Social History Tobacco Use Types Packs/Day Years Used Date Smoking Tobacco: Never Smokeless Tobacco: Never Alcohol Use Standard Drinks/Week Comments Yes 0 (1 standard drink = 0.6 oz pur e alcohol) socially Sex and Gender Information Value Date Recorded Sex Assigned at Female 11/04/2018 8:36 AM RATE REVIEWER Gender Identity Female 11/04/2018 8:36 AM RATE REVIEWER Sexual Orientation Straight 11/04/2018 8: 36 AM RATE REVIEWER documented as of this encounter Plan of Treatment Not on file documented as of this encounter Visit Diagnoses Not on filedocumented in this encounter Additional Health Concerns Assessment Noted Time PHQ-9 Depression Total Score: 25 04/23/ 016 7:14 AM CDT documented as of this encounter Care Teams Cracking Still Operator Relationship Specialty Start Date End Date Anderz Krause PA-C PCP - General Physician Consumer Lending Manager - Medical 10/09/15 05/29/21 Andrez Krause PA-C [address] [place] [address] PCP - Assigned PCP 09/13/15 12/14/18 Heaven Brunson PA-C [facility] [address] [place] [address] PCP - General Physician Consumer Lending Manager 05/30/21 Andrez Krause PA-C [address] [place] [address] Assigned PCP 09/13/15 06/20/22 Mona Tian MD [address] [place] [address] Assigned OBGYN Provider 08/03/20 Brett Torres [facility] [address] [facility] [address] [place], [place] [address] Assigned Behavioral Health Provider 07/14/21 01/02/23 Karen Galvan PA-C [address] [place] [address] [place] [address] Assigned Sleep Provider 09/01/21 Marie Lawrence, [facility] EPILE[facility]Y CARE [address] [address] Assigned MTM Pharmacist 04/05/22 documented as of this encounter
--- OUTSIDE RECORDS SUMMARY | 2023-11-10 09:27 | XMS_ITS | Encounter Summary ---
Author Name Unknown Organization [facility] Address [address] [place] [address] Care Team Providers Care Chaplain Name Role Phone Andrez Krause PA-C Primary Care Provider Andrez Krause PA-C Unavailable + [phone] Andrez Krause PA-C Unavailable +[phone] Mona Tian MD Unavailable [phone] Heaven Brunson PA-C Primary Care Provider Brett Torres MD Unavailable [phone] Karen Galvan PA-C Unavailable + [phone] Marie Lawrence [facility] Unavailable +[phone] Reason for Visit * Reason Onset Date Comments Medication Problem 02/13/2016 Lexapro Encounter Details Date Type Department Care Team (Late st Contact Info) Description 02/13/2016 MyC Medical Advice [address], [address] [place] [address] Andrez Krause PA-C [address] [place] [address] Medication Problem (Lexapro) Social History Tobacco Use Types Packs/Day Years Used Date Smoking Tobacco: Never Alcohol Use Standard Drinks/Week Comments Yes 0 (1 standard drink = 0.6 oz pur e alcohol) Sex and Gender Information Value Date Recorded Sex Assigned at Female 11/04/2018 8:36 AM CONVERSION WORKER Gender Identity Female 11/04/2018 8:36 AM CONVERSION WORKER Sexual Orientation Straight 11/04/2018 8: 36 AM CONVERSION WORKER documented as of this encounter Plan of Treatment Not on file documented as of this encounter Visit Diagnoses Not on filedocumented in this encounter Additional Health Concerns Assessment Noted Time PHQ-9 Depression Total Score: 21 01/08/ 016 9:30 AM CDT documented as of this encounter Care Teams Chaplain Relationship Specialty Start Date End Date Andrez Krause PA-C PCP - General Physician Enologist - Medical 10/09/15 05/29/21 Andrez Krause PA-C [address] [place] [address] PCP - Assigned PCP 09/13/15 12/14/18 Heaven Brunson PA-C [facility] [address] [place] [address] PCP - General Physician Enologist 05/30/21 Andrez Krause PA-C [address] [place] [address] Assigned PCP 09/13/15 06/20/22 Mona Tian MD [address] [place] [address] Assigned OBGYN Provider 08/03/20 Brett Torres [facility] [address] [place] [address] Assigned Behavioral Health Provider 07/14/21 01/02/23 Karen Galvan PA-C [address] [place] [address] Assigned Sleep Provider 09/01/21 Marie Lawrence, [facility] 5775 [facility] [address] [place] [address] Assigned MTM Pharmacist 04/05/22 documented as of this encounter
--- OUTSIDE RECORDS SUMMARY | 2023-11-10 09:27 | XMS_ITS | Encounter Summary ---
Author Name Unknown Organization [facility] Address [address] [place] [address] Care Team Providers Care Assembler Dc Field Ring Name Role Phone Andrez Krause PA-C Primary Care Provider Andrez Krause PA-C Unavailable +[phone] Anderz Krause PA-C Unavailable +[phone] Mona Tian MD Unavailable +[phone] Heaven Brunson PA-C Primary Care Provider Brett Torres MD Unavailable +[phone] Karen Galvan PA-C Unavailable + [phone] Marie Lawrence [facility] Unavailable +[phone] Encounter Details Date Type Department Care Team (Late st Contact Info) Description 08/25/2017 MyC Medical Advice [address], [address] [place] [address] Nalini Conte RN Social History Tobacco Use Types Packs/Day Years Used Date Smoking Tobacco: Never Smokeless Tobacco: Never Alcohol Use Standard Drinks/Week Comments Yes 0 (1 standard drink = 0.6 oz pur e alcohol) socially Sex and Gender Information Value Date Recorded Sex Assigned at Female 11/04/2018 8:36 AM RN SANE Gender Identity Female 11/04/2018 8:36 AM RN SANE Sexual Orientation Straight 11/04/2018 8: 36 AM RN SANE documented as of this encounter Plan of Treatment Not on file documented as of this encounter Visit Diagnoses Not on filedocumented in this encounter Additional Health Concerns Assessment Noted Time PHQ-9 Depression Total Score: 25 017 7:07 AM CDT documented as of this encounter Care Teams Assembler Dc Field Ring Relationship Specialty Start Date End Date Andrez Krause PA-C PCP - General Physician Angledozer Operator - Medical 10/09/15 05/29/21 Andrez Krause PA-C [address] [place] [address] PCP - Assigned PCP 09/13/15 12/14/18 Heaven Brunson PA-C [facility] [address] [place] [address] PCP - General Physician Angledozer Operator 05/30/21 Andrez Krause PA-C [address] [place] [address] Assigned PCP 09/13/15 06/20/22 Mona Tian MD [address] [place] [address] Assigned OBGYN Provider 08/03/20 Brett Torres [facility] [address] [facility] 255 [place] [address] Assigned Behavioral Health Provider 07/14/21 01/02/23 Karen Galvan PA-C [address] [place] [address] [place] [address] Assigned Sleep Provider 09/01/21 Marie Lawrence, [facility] 5775 [facility] 200 [place] [address] Assigned MTM Pharmacist 04/05/22 documented as of this encounter
--- OUTSIDE RECORDS SUMMARY | 2023-11-10 09:27 | XMS_ITS | Encounter Summary ---
Author Name Unknown Organization [facility] Address [address] [place] [address] Care Team Providers Care Mimeograph Operator Name Role Phone Andrez Krause PA-C Primary Care Provider Andrez Krause PA-C Unavailable + [phone] Andrez Krause PA-C Unavailable + [phone] Mona Tian MD Unavailable [phone] Heaven Brunson PA-C Primary Care Provider Brett Torres MD Unavailable +[phone] Karen Galvan PA-C Unavailable + [phone] Marie Lawrence [facility] Unavailable +[phone] Reason for Visit * Reason Onset Date Comments Refill Request 11/19/2017 Imitrex tablets Encounter Details Date Type Department Care Team (Late st Contact Info) Description 11/19/2017 MyC Medical Advice [address], [address] [place] [address] Andrez Krause PA-C [address] [place] [address] Refill Request (Imitrex tablets) Social History Tobacco Use Types Packs/Day Years Used Date Smoking Tobacco: Never Smokeless Tobacco: Never Alcohol Use Standard Drinks/Week Comments Yes 0 (1 standard drink = 0.6 oz pur e alcohol) socially Sex and Gender Information Value Date Recorded Sex Assigned at Female 11/04/2018 8:36 AM MEDICAL SCREENER Gender Identity Female 11/04/2018 8:36 AM MEDICAL SCREENER Sexual Orientation Straight 11/04/2018 8: 36 AM MEDICAL SCREENER documented as of this encounter Miscellaneous Notes * Telephone Encounter - Nalini Conte RN - 11/19/2017 3:48 PM CST Looks like SUMAtriptan (IMITREX) 100 MG tablet #9 was sent to pharmacy. Nalini Conte RN CAL SCREENER documented in this encounter Plan of Treatment Not on file documented as of this encounter Visit Diagnoses Not on filedocumented in this encounter Additional Health Concerns Assessment Noted Time PHQ-9 Depression Total Score: 19 018 9:18 AM MEDICAL SCREENER documented as of this encounter Care Teams Mimeograph Operator Relationship Specialty Start Date End Date Andrez Krause PA-C PCP - General Physician Office Secretary - Medical 10/09/15 05/29/21 Andrez Krause PA-C [address] [place] [address] PCP - Assigned PCP 09/13/15 12/14/18 Heaven Brunson PA-C [facility] [address] [place] [address] PCP - General Physician Office Secretary 05/30/21 Andrez Krause PA-[place] [address] [place] [address] Assigned PCP 09/13/15 06/20/22 Mona Tian MD [address] [place] [address] Assigned OBGYN Provider 08/03/20 Brett Torres [facility] [address] [facility] [address] [place], [place] [address] Assigned Behavioral Health Provider 07/14/21 01/02/23 Karen Galvan PA-C [address] [facility] [address] [place], [place] [address] Assigned Sleep Provider 09/01/21 Marie Lawrence [facility] [address] [facility] 200 [place], [place] [address] Assigned MTM Pharmacist 04/05/22 documented as of this encounter
--- OUTSIDE RECORDS SUMMARY | 2023-11-10 09:27 | XMS_ITS | Encounter Summary ---
Author Name Unknown Organization [facility] Address [address] [place] [address] Care Team Providers Care Systems Programmer Name Role Phone Andrez Krause PA-C Primary Care Provider Andrez Krause PA-C Unavailable + [phone] Andrez Krause PA-C Unavailable + [phone] Mona Tian MD Unavailable +[phone] Heaven Brunson PA-C Primary Care Provider Brett Torres MD Unavailable +[phone] Karen Galvan PA-C Unavailable + [phone] Marie Lawrence [facility] Unavailable +[phone] Reason for Visit * Reason Onset Date Comments Forms 04/08/2017 FMLA Encounter Details Date Type Department Care Team (Late st Contact Info) Description 04/08/2017 MyC Medical Advice [address], [address] [place] [address] Andrez Krause PA-C [address] [place] [address] Forms (FMLA) Social History Tobacco Use Types Packs/Day Years Used Date Smoking Tobacco: Never Smokeless Tobacco: Never Alcohol Use Standard Drinks/Week Comments Yes 0 (1 standard drink = 0.6 oz pur e alcohol) socially Sex and Gender Information Value Date Recorded Sex Assigned at Female 11/04/2018 8:36 AM MEDICAL ENGINEER Gender Identity Female 11/04/2018 8:36 AM MEDICAL ENGINEER Sexual Orientation Straight 11/04/2018 8: 36 AM MEDICAL ENGINEER documented as of this encounter Plan of Treatment Not on file documented as of this encounter Visit Diagnoses Not on filedocumented in this encounter Additional Health Concerns Assessment Noted Time PHQ-9 Depression Total Score: 11 017 7:20 AM CDT documented as of this encounter Care Teams Systems Programmer Relationship Specialty Start Date End Date Andrez Krause PA-C PCP - General Physician Working Foreman - Medical 10/09/15 05/29/21 Andrez Krause PA-C [address] [place] [address] PCP - Assigned PCP 09/13/15 12/14/18 Heaven Brunson PA-C [facility] [place] [address] [place] [address] PCP - General Physician Working Foreman 05/30/21 Andrez Krause PA-C [address] [place] [address] Assigned PCP 09/13/15 06/20/22 Mona Tian MD [address] [place] [address] Assigned OBGYN Provider 08/03/20 Brett Torres [facility] [address] [place] [address] Assigned Behavioral Health Provider 07/14/21 01/02/23 Karen Galvan PA-C [address] [facility] 103 [place] [address] Assigned Sleep Provider 09/01/21 Marie Lawrence, [facility] 5775 [facility] 200 [place], [place] [address] Assigned MTM Pharmacist 04/05/22 documented as of this encounter
--- OUTSIDE RECORDS SUMMARY | 2023-11-10 09:27 | XMS_ITS | Encounter Summary ---
Author Name Unknown Organization [facility] Address [address] [place] [address] Care Team Providers Care Loft Rigger Name Role Phone Andrez Krause PA-C Primary Care Provider Andrez Krause PA-C Unavailable +[phone] Andrez Krause PA-C Unavailable +[phone] Mona Tian MD Unavailable [phone] Heaven Brunson PA-C Primary Care Provider Brett Torres MD Unavailable +[phone] Karen Galvan PA-C Unavailable +[phone] Marie Lawrence [facility] Unavailable +[phone] Encounter Details Date Type Department Care Team (Late st Contact Info) Description 11/04/2017 MyC Medical Advice [address], [address] [place] [address] Marnei Mabry MA Social History Tobacco Use Types Packs/Day Years Used Date Smoking Tobacco: Never Smokeless Tobacco: Never Alcohol Use Standard Drinks/Week Comments Yes 0 (1 standard drink = 0.6 oz pur e alcohol) socially Sex and Gender Information Value Date Recorded Sex Assigned at Female 11/04/2018 8:36 AM REPAIRER HELPER Gender Identity Female 11/04/2018 8:36 AM REPAIRER HELPER Sexual Orientation Straight 11/04/2018 8: 36 AM REPAIRER HELPER documented as of this encounter Plan of Treatment Not on file documented as of this encounter Visit Diagnoses Not on filedocumented in this encounter Additional Health Concerns Assessment Noted Time PHQ-9 Depression Total Score: 19 018 9:18 AM REPAIRER HELPER documented as of this encounter Care Teams Loft Rigger Relationship Specialty Start Date End Date Andrez Krause PA-C PCP - General Physician Manager Family - Medical 10/09/15 05/29/21 Andrez Krause PA-C [address] [place] [address] PCP - Assigned PCP 09/13/15 12/14/18 Heaven Brunson PA-C [facility] [address] [place] [address] PCP - General Physician Manager Family 05/30/21 Andrez Krause PA-C [address] [place] [address] Assigned PCP 09/13/15 06/20/22 Mona Tian MD [address] [place] [address] Assigned OBGYN Provider 08/03/20 Brett Torres [facility] [address] [facility] 255 [place] [address] Assigned Behavioral Health Provider 07/14/21 01/02/23 Karen Galvan PA-C [address] [place] [address] [place] [address] Assigned Sleep Provider 09/01/21 Marie Lawrence, [facility] 5775 [facility] 200 [place] [address] Assigned MTM Pharmacist 04/05/22 documented as of this encounter
--- OUTSIDE RECORDS SUMMARY | 2023-11-10 09:27 | XMS_ITS | Encounter Summary ---
Author Name Unknown Organization [facility] Address [address] [place] [address] Care Team Providers Care Inside Sales Person Name Role Phone Andrez Krause PA-C Primary Care Provider Andrez Krause PA-C Unavailable [phone] Andrez Krause PA-C Unavailable +[phone] Mona Tian MD Unavailable [phone] Heaven Brunson PA-C Primary Care Provider Brett Torres MD Unavailable [phone] Karen Galvan PA-C Unavailable + [phone] Marie Lawrence [facility] Unavailable +[phone] Encounter Details Date Type Department Care Team (Latest Contact Info) Description 02/19/2017 Historic Results Social History Tobacco Use Types Packs/Day Years Used Date Smoking Tobacco: Never Smokeless Tobacco: Never Alcohol Use Standard Drinks/Week Comments Yes 0 (1 standard drink = 0.6 oz pur e alcohol) socially Sex and Gender Information Value Date Recorded Sex Assigned at Female 11/04/2018 8:36 AM CERAMIC RESEARCH ENGINEER Gender Identity Female 11/04/2018 8:36 AM CERAMIC RESEARCH ENGINEER Sexual Orientation Straight 11/04/2018 8: 36 AM CERAMIC RESEARCH ENGINEER documented as of this encounter Plan of Treatment Not on file documented as of this encounter Visit Diagnoses Not on filedocumented in this encounter Additional Health Concerns Assessment Noted Time PHQ-9 Depression Total Score: 11 017 7:20 AM CDT documented as of this encounter Care Teams Inside Sales Person Relationship Specialty Start Date End Date Andrez Krause PA-C PCP - General Physician Information Director - Medical 10/09/15 05/29/21 Andrez Krause PA-C [address] [place] [address] PCP - Assigned PCP 09/13/15 12/14/18 Heaven Brunson PA-C [facility] [address] [place], [place] [address] PCP - General Physician Information Director 05/30/21 Andrez Krause PA-C [address] [facility] [place] [address] Assigned PCP 09/13/15 06/20/22 Mona Tian MD [address] [place], [place] [address] Assigned OBGYN Provider 08/03/20 Brett Torres MD [facility] [address] [facility] 255 [place], [place] [address] Assigned Behavioral Health Provider 07/14/21 01/02/23 Karen Galvan PA-C [address] [facility] 103 [place], [place] [address] Assigned Sleep Provider 09/01/21 Marie Lawrence, [facility] 5775 [facility] 200 [place], [place] [address] Assigned MTM Pharmacist 04/05/22 documented as of this encounter
--- OUTSIDE RECORDS SUMMARY | 2023-11-10 09:27 | XMS_ITS | Encounter Summary ---
Author Name Unknown Organization [facility] Address [address] [place] [address] Care Team Providers Care Planning Management It Specialist Name Role Phone Andrez Krause PA-C Primary Care Provider Andrez Krause PA-C Unavailable +[phone] Andrez Krause PA-C Unavailable +[phone] Mona Tian MD Unavailable [phone] Heaven Brunson PA-C Primary Care Provider Brett Torres MD Unavailable [phone] Karen Galvan PA-C Unavailable + [phone] Marie Lawrence [facility] Unavailable +[phone] Encounter Details Date Type Department Care Team (Late st Contact Info) Description 10/28/2017 MyC Medical Advice [address], [address] [place] [address] Marnie Mabry MA Social History Tobacco Use Types Packs/Day Years Used Date Smoking Tobacco: Never Smokeless Tobacco: Never Alcohol Use Standard Drinks/Week Comments Yes 0 (1 standard drink = 0.6 oz pur e alcohol) socially Sex and Gender Information Value Date Recorded Sex Assigned at Female 11/04/2018 8:36 AM SETTER OFF Gender Identity Female 11/04/2018 8:36 AM SETTER OFF Sexual Orientation Straight 11/04/2018 8: 36 AM SETTER OFF documented as of this encounter Plan of Treatment Not on file documented as of this encounter Visit Diagnoses Not on filedocumented in this encounter Additional Health Concerns Assessment Noted Time PHQ-9 Depression Total Score: 20 018 1:03 PM SETTER OFF documented as of this encounter Care Teams Planning Management It Specialist Relationship Specialty Start Date End Date Andrez Krause PA-C PCP - General Physician Police Manager - Medical 10/09/15 05/29/21 Andrez Krause PA-C [address] [place] [address] PCP - Assigned PCP 09/13/15 12/14/18 Heaven Brunson PA-C [facility] [address] [place] [address] PCP - General Physician Police Manager 05/30/21 Andrez Krause PA-C [address] [place] [address] Assigned PCP 09/13/15 06/20/22 Mona Tian MD [address] [place] [address] Assigned OBGYN Provider 08/03/20 Brett Torres [facility] [address]14[address] [facility] 255 [place] [address] Assigned Behavioral Health Provider 07/14/21 01/02/23 Karen Galvan PA-C [address] [place] [address] Assigned Sleep Provider 09/01/21 Marie Lawrence, [facility] 5775 [facility] 200 [place] [address] Assigned MTM Pharmacist 04/05/22 documented as of this encounter
--- OUTSIDE RECORDS SUMMARY | 2023-11-10 09:27 | XMS_ITS | Encounter Summary ---
Author Name Unknown Organization [facility] [place] Address [address] [place] [address] Care Team Providers Care Radio Aerial Installer Name Role Phone Andrez Krause PA-C Primary Care Provider Andrez Krause PA-C Unavailable +[phone] Andrez Krause PA-C Unavailable +[phone] Mona Tian MD Unavailable [phone] Heaven Brunson PA-C Primary Care Provider Brett Torres MD Unavailable [phone] Karen Galvan PA-C Unavailable + [phone] Marie Lawrence [facility] Unavailable [phone] Encounter Details Date Type Department Care Team (Late st Contact Info) Description 04/17/2017 MyC Medical Advice [address], [address] [place] [address] Nalini Conte RN Social History Tobacco Use Types Packs/Day Years Used Date Smoking Tobacco: Never Smokeless Tobacco: Never Alcohol Use Standard Drinks/Week Comments Yes 0 (1 standard drink = 0.6 oz pur e alcohol) socially Sex and Gender Information Value Date Recorded Sex Assigned at Female 11/04/2018 8:36 AM COMMERCIAL DRIVER'S LICENSE DRIVER Gender Identity Female 11/04/2018 8:36 AM COMMERCIAL DRIVER'S LICENSE DRIVER Sexual Orientation Straight 11/04/2018 8: 36 AM COMMERCIAL DRIVER'S LICENSE DRIVER documented as of this encounter Plan of Treatment Not on file documented as of this encounter Visit Diagnoses Not on filedocumented in this encounter Additional Health Concerns Assessment Noted Time PHQ-9 Depression Total Score: 11 017 7:20 AM CDT documented as of this encounter Care Teams Radio Aerial Installer Relationship Specialty Start Date End Date Andrez Krause PA-C PCP - General Physician At Risk Specialist - Medical 10/09/15 05/29/21 Andrez Krause PA-C [address] [place] [address] PCP - Assigned PCP 09/13/15 12/14/18 Heaven Brunson PA-C [facility] [address] [place] [address] PCP - General Physician At Risk Specialist 05/30/21 Andrez Krause PA-C [address] [place] [address] Assigned PCP 09/13/15 06/20/22 Mona Tian MD [address] [place] [address] Assigned OBGYN Provider 08/03/20 Brett Torres MD [facility] [address] [facility] 255 [place] [address] Assigned Behavioral Health Provider 07/14/21 01/02/23 Karen Galvan PA-C [address] [place] [address] Assigned Sleep Provider 09/01/21 Marie Lawrence, [facility] 5775 [facility] 200 [place] [address] Assigned MTM Pharmacist 04/05/22 documented as of this encounter
--- OUTSIDE RECORDS SUMMARY | 2023-11-10 09:27 | XMS_ITS | Encounter Summary ---
Author Name Unknown Organization [facility] Address [address] [place] [address] Care Team Providers Care Transportation Design Engineer Name Role Phone Andrez Krause PA-C Primary Care Provider Andrez Krause PA-C Unavailable + [phone] Andrez Krause PA-C Unavailable + [phone] Mona Tian MD Unavailable [phone] Heaven Brunson PA-C Primary Care Provider Brett Torres MD Unavailable +[phone] Karen Galvan PA-C Unavailable + [phone] Marie Lawrence [facility] Unavailable +[phone] Reason for Visit * Reason Onset Date Comments Refill Request 03/23/2016 Encounter Details Date Type Department Care Team (Late st Contact Info) Description 03/23/2016 MyC [place] [address], [address] [place] [address] Andrez Krause PA-C [address] [place] [address] Refill Request Social History Tobacco Use Types Packs/Day Years Used Date Smoking Tobacco: Never Alcohol Use Standard Drinks/Week Comments Yes 0 (1 standard drink = 0.6 oz pur e alcohol) socially Sex and Gender Information Value Date Recorded Sex Assigned at Female 11/04/2018 8:36 AM WATER MAIN INSPECTOR Gender Identity Female 11/04/2018 8:36 AM WATER MAIN INSPECTOR Sexual Orientation Straight 11/04/2018 8: 36 AM WATER MAIN INSPECTOR documented as of this encounter Miscellaneous Notes * Telephone Encounter - Una Berry - 03/26/2016 2:37 PM CDT Patient scheduled appt through [facility] for 03/31 * Telephone Encounter - Josefina Diop RN - 03/25/2016 10:53 AM CDT Per last refill PCP wants to see patient Josefina Diop RN, BSN * Telephone Encounter - Josefina Diop RN - 03/25/2016 10:52 AM CDTMessage from [facility]: Original authorizing provider: LUIS ANTONIO Molina would like a refill of the following medications: citalopram (CELEXA) 20 MG tablet [Andrez Krause PA-C] Preferred pharmacy: [id number] [place] [address] [address] TECHN[address] Comment: documented in this encounter Plan of Treatment Not on file documented as of this encounter Visit Diagnoses Diagnosis Adjustment disorder with mixed anxiety and depressed mood documented in this encounter Additional Health Concerns Assessment Noted Time PHQ-9 Depression Total Score: 21 016 9:30 AM CDT documented as of this encounter Care Teams Transportation Design Engineer Relationship Specialty Start Date End Date Andrez Krause PA-C PCP - General Physician Marketing Agent - Medical 10/09/15 05/29/21 Andrez Krause PA-C [address] [place] [address] PCP - Assigned PCP 09/13/15 12/14/18 Heaven Brunson PA-C [facility] [address] [place] [address] PCP - General Physician Marketing Agent 05/30/21 Andrez Krause PA-C [address] [facility] [address] Assigned PCP 09/13/15 06/20/22 Mona Tian MD [address] [place] [place], [place] [address] Assigned OBGYN Provider 08/03/20 Brett Torres MD [facility]IN[facility] 10196 [facility] 255 [place], [place] [address] Assigned Behavioral Health Provider 07/14/21 01/02/23 Karen Galvan PA-C [address] [facility] 103 [place] [address] Assigned Sleep Provider 09/01/21 Marie Lawrence, [facility] 5775 [facility] 200 [place], [place] [id number] Assigned MTM Pharmacist 04/05/22 documented as of this encounter
--- OUTSIDE RECORDS SUMMARY | 2023-11-10 09:27 | XMS_ITS | Encounter Summary ---
Author Name Unknown Organization [place] Address [address] [place] [address] Care Team Providers Care Diamond Sander Name Role Phone Andrez Krause PA-C Primary Care Provider Andrez Krause PA-C Unavailable + [phone] Andrez Krause PA-C Unavailable +[phone] Mona Tian MD Unavailable +[phone] Heaven Brunson PA-C Primary Care Provider Brett Torres MD Unavailable +[phone] Karen Galvan PA-C Unavailable +[phone] Marie Lawrence [facility] Unavailable [phone] Reason for Visit * Reason Onset Date Comments Refill Request 11/02/2018 erenumab-aooe (A IMOVIG) 70 MG/ML injection Encounter Details Date Type Department Care Team (Late st Contact Info) Description 11/02/2018 MyC Refill [address], [address] [place] [address] Andrez Krause PA-C [address] [place] [address] Refill Request (erenumab-aooe (AIMOVIG) 70... Social History Tobacco Use Types Packs/Day Years Used Date Smoking Tobacco: Never Smokeless Tobacco: Never Alcohol Use Standard Drinks/Week Comments Yes 0 (1 standard drink = 0.6 oz pur e alcohol) Social, rare PHQ-2 Answer Date Recorded PHQ-2 Score 6 10/19/2018 Sex and Gender Information Value Date Recorded Sex Assigned at Female 11/04/2018 8:36 AM INSIDE TECHNICAL SALES REPRESENTATIVE Gender Identity Female 11/04/2018 8:36 AM INSIDE TECHNICAL SALES REPRESENTATIVE Sexual Orientation Straight 11/04/2018 8: 36 AM INSIDE TECHNICAL SALES REPRESENTATIVE documented as of this encounter Miscellaneous Notes * Telephone Encounter - Geraldine Chavarria RN - 11/02/2018 5:24 PM CST Routing refill request to provider for review/approval because: Drug not on the [facility] refill protocol Geraldine Chavarria RN, BS Clinical Nurse Triage. DE TECHNICAL SALES REPRESENTATIVE * Telephone Encounter - Denia Reddy - [...] 01/25/2019) for Med Check. Future Office Visit: DE TECHNICAL SALES REPRESENTATIVE documented in this encounter Plan of Treatment [...] documented as of this encounter Care Teams Diamond Sander Relationship Specialty Start Date End Date Andrez Krause PA-C PCP - General Physician Material Scheduler - Medical 10/09/15 05/29/21 Andrez Krause PA-C [address] [place] [address] PCP - Assigned PCP 09/13/15 12/14/18 Heaven Brunson PA-C [facility] [address] [place] [address] PCP - General Physician Material Scheduler 05/30/21 Andrez Krause PA-C [address] [place] [address] Assigned PCP 09/13/15 06/20/22 Mona Tian MD [address] [place], [place] [address] Assigned OBGYN Provider 08/03/20 Brett Torres [facility] [address] [facility] 255 [place], [place] [id number] Assigned Behavioral Health Provider 07/14/21 01/02/23 Karen Galvan PA-C [address] [facility] 103 [place], [place] [address] Assigned Sleep Provider 09/01/21 Marie Lawrence, [facility] 5775 [facility] 200 [place] [address] Assigned MTM Pharmacist 04/05/22 documented as of this encounter
--- OUTSIDE RECORDS SUMMARY | 2023-11-10 09:27 | XMS_ITS | Encounter Summary ---
Author Name Unknown Organization [place] Address [address] [place] [address] Care Team Providers Care Surgical Forceps Fabricator Name Role Phone Andrez Krause PA-C Primary Care Provider Andrez Krause PA-C Unavailable + [phone] Andrez Krause PA-C Unavailable + [phone] Mona Tian MD Unavailable +[phone] Heaven Brunson PA-C Primary Care Provider Brett Torres MD Unavailable +[phone] Karen Galvan PA-C Unavailable + [phone] Marie Lawrence [facility] Unavailable +[phone] Reason for Visit * Reason Onset Date Comments Mental Health Problem 09/11/2017 Encounter Details Date Type Department Care Team (Late st Contact Info) Description 09/11/2017 MyC Medical Advice [address], [address] [place] [address] Andrez Krause PA-C [address] [place] [address] Mental Health Problem Social History Tobacco Use Types Packs/Day Years Used Date Smoking Tobacco: Never Smokeless Tobacco: Never Alcohol Use Standard Drinks/Week Comments Yes 0 (1 standard drink = 0.6 oz pur e alcohol) socially Sex and Gender Information Value Date Recorded Sex Assigned at Female 11/04/2018 8:36 AM SOLDER TECHNICIAN Gender Identity Female 11/04/2018 8:36 AM SOLDER TECHNICIAN Sexual Orientation Straight 11/04/2018 8: 36 AM SOLDER TECHNICIAN documented as of this encounter Plan of Treatment Not on file documented as of this encounter Visit Diagnoses Not on filedocumented in this encounter Additional Health Concerns Assessment Noted Time PHQ-9 Depression Total Score: 25 017 7:54 AM SOLDER TECHNICIAN documented as of this encounter Care Teams Surgical Forceps Fabricator Relationship Specialty Start Date End Date Andrez Krause PA-C PCP - General Physician Driftman - Medical 10/09/15 05/29/21 Andrez Krause PA-C [address] [place] [address] PCP - Assigned PCP 09/13/15 12/14/18 Heaven Brunson PA-C [facility] [address] [place] [address] PCP - General Physician Driftman 05/30/21 Andrez Krause PA-C [address] [place] [address] Assigned PCP 09/13/15 06/20/22 Mona Tian MD [address] [place] [address] Assigned OBGYN Provider 08/03/20 Brett Torres [facility] [address] [place] [address] Assigned Behavioral Health Provider 07/14/21 01/02/23 Kraen Galvan PA-C [address] [place] [address] [place] [address] Assigned Sleep Provider 09/01/21 Marie Lawrence, [facility] 5775 [facility] 200 [place] [address] Assigned MTM Pharmacist 04/05/22 documented as of this encounter
--- OUTSIDE RECORDS SUMMARY | 2023-11-10 09:27 | XMS_ITS | Encounter Summary ---
Author Name Unknown Organization [place] Address [address] [place] [address] Care Team Providers Care X Ray Tech Name Role Phone Andrez Krause PA-C Primary Care Provider Andrez Krause PA-C Unavailable +[phone] Andrez Krause PA-C Unavailable +[phone] Mona Tian MD Unavailable [phone] Heaven Brunson PA-C Primary Care Provider Brett Torres MD Unavailable [phone] Karen Galvan PA-C Unavailable + [phone] Marie Lawrence [facility] Unavailable [phone] Encounter Details Date Type Department Care Team (Late st Contact Info) Description 10/30/2017 MyC Medical Advice [address], [address] [place] [address] Geraldine Chavarria, RN Social History Tobacco Use Types Packs/Day Years Used Date Smoking Tobacco: Never Smokeless Tobacco: Never Alcohol Use Standard Drinks/Week Comments Yes 0 (1 standard drink = 0.6 oz pur e alcohol) socially Sex and Gender Information Value Date Recorded Sex Assigned at Female 11/04/2018 8:36 AM EMAIL MARKETER Gender Identity Female 11/04/2018 8:36 AM EMAIL MARKETER Sexual Orientation Straight 11/04/2018 8: 36 AM EMAIL MARKETER documented as of this encounter Plan of Treatment Not on file documented as of this encounter Visit Diagnoses Not on filedocumented in this encounter Additional Health Concerns Assessment Noted Time PHQ-9 Depression Total Score: 19 018 9:18 AM EMAIL MARKETER documented as of this encounter Care Teams X Ray Tech Relationship Specialty Start Date End Date Andrez Krause PA-C PCP - General Physician Monorail Hooker - Medical 10/09/15 05/29/21 Andrez Krause PA-C [address] [place] [address] PCP - Assigned PCP 09/13/15 12/14/18 Heaven Brunson PA-C [facility] [address] [place] [address] PCP - General Physician Monorail Hooker 05/30/21 Andrez Krause PA-C [address] [place] [address] Assigned PCP 09/13/15 06/20/22 Mona Tian MD [address] [place] [address] Assigned OBGYN Provider 08/03/20 Brett Torres [facility] [address] [facility] 255 [place] [address] Assigned Behavioral Health Provider 07/14/21 01/02/23 Karen Galvan PA-C [address] [place] [address] [place] [address] Assigned Sleep Provider 09/01/21 Marie Lawrence, [facility] [place] [facility] 5775 [facility] 200 [place] [address] Assigned MTM Pharmacist 04/05/22 documented as of this encounter
--- OUTSIDE RECORDS SUMMARY | 2023-11-10 09:27 | XMS_ITS | Encounter Summary ---
Author Name Unknown Organization [facility] Address [address] [place] [address] Care Team Providers Care Process Controls Technician Name Role Phone Andrez Krause PA-C Primary Care Provider Andrez Krause PA-C Unavailable + [phone] Andrez Krause PA-C Unavailable + [phone] Mona Tian MD Unavailable [phone] Heaven Brunson PA-C Primary Care Provider Brett Torres MD Unavailable +[phone] Karen Galvan PA-C Unavailable + [phone] Marie Lawrence [facility] Unavailable [phone] Reason for Visit * Reason Onset Date Comments Infection 03/03/2016 Tonsil Encounter Details Date Type Department Care Team (Late st Contact Info) Description 03/03/2016 MyC Medical Advice [address], [address] [place] [address] Andrez Krause PA-C [address] [place] [address] Infection (Tonsil) Social History Tobacco Use Types Packs/Day Years Used Date Smoking Tobacco: Never Alcohol Use Standard Drinks/Week Comments Yes 0 (1 standard drink = 0.6 oz pur e alcohol) socially Sex and Gender Information Value Date Recorded Sex Assigned at Female 11/04/2018 8:36 AM OB/GYN DOCTOR Gender Identity Female 11/04/2018 8:36 AM OB/GYN DOCTOR Sexual Orientation Straight 11/04/2018 8: 36 AM OB/GYN DOCTOR documented as of this encounter Plan of Treatment Not on file documented as of this encounter Visit Diagnoses Not on filedocumented in this encounter Additional Health Concerns Assessment Noted Time PHQ-9 Depression Total Score: 21 016 9:30 AM CDT documented as of this encounter Care Teams Process Controls Technician Relationship Specialty Start Date End Date Andrez Krause PA-C PCP - General Physician Camp Program Director - Medical 10/09/15 05/29/21 Andrez Krause PA-C [address] [place] [address] PCP - Assigned PCP 09/13/15 12/14/18 Heaven Brunson PA-C [facility] [address] [place] [address] PCP - General Physician Camp Program Director 05/30/21 Andrez Krause PA-C [address] [place] [address] Assigned PCP 09/13/15 06/20/22 Mona Tian MD [address] [place] [address] Assigned OBGYN Provider 08/03/20 Brett Torres [facility] [address] [address] Assigned Behavioral Health Provider 07/14/21 01/02/23 Karen Galvan PA-C [address] [place] [address] [place] [address] Assigned Sleep Provider 09/01/21 Marie Lawrence, [facility] [address] [facility] [place] [place], [place] [address] Assigned MTM Pharmacist 04/05/22 documented as of this encounter
--- OUTSIDE RECORDS SUMMARY | 2023-11-10 09:27 | XMS_ITS | Encounter Summary ---
Author Name Unknown Organization [place] Address [address] [place] [address] Care Team Providers Care Senior Sas Programmer Name Role Phone Andrez Krause PA-C Primary Care Provider Andrez Krause PA-C Unavailable +[phone] Andrez Krause PA-C Unavailable +[phone] Mona Tian MD Unavailable [phone] Heaven Brunson PA-C Primary Care Provider Brett Torres MD Unavailable [phone] Karen Galvan PA-C Unavailable + [phone] Marie Lawrence [facility] Unavailable [phone] Reason for Visit * Reason Onset Date Comments Refill Request 04/29/2018 Encounter Details Date Type Department Care Team (Late st Contact Info) Description 04/29/2018 MyC Refill [facility] [address] [place] [address] Rhonda Middleton PA-C [address] [place] [address] Refill Request Social History Tobacco Use Types Packs/Day Years Used Date Smoking Tobacco: Never Smokeless Tobacco: Never Alcohol Use Standard Drinks/Week Comments Yes 0 (1 standard drink = 0.6 oz pur e alcohol) Social, rare Sex and Gender Information Value Date Recorded Sex Assigned at Female 11/04/2018 8:36 AM PAROLE BOARD MEMBER Gender Identity Female 11/04/2018 8:36 AM PAROLE BOARD MEMBER Sexual Orientation Straight 11/04/2018 8: 36 AM PAROLE BOARD MEMBER documented as of this encounter Miscellaneous Notes * Telephone Encounter - Sweta Danielle RN - 04/29/2018 8:52 AM CDT Called the Pt to discuss refill. LM, waiting callback. Pt is a FM Pt with AP. Medication was [facility]by [facility] provider. Pt needs to follow up with PCP to discuss refills. Please help her schedule when she calls back. Thanks. Sweta Danielle RN -- [employer] * Telephone Encounter - Sweta Danielle RN - 04/29/2018 8:49 AM CDT[facility] Original authorizing provider: LUIS ANTONIO Mendoza would like a refill of the following medications: erenumab-aooe (AIMOVIG) 70 MG/ML injection [Rhonda Middleton PA-C] Preferred pharmacy: [id number] [address] [address] Comment: documented in this encounter Plan of [...] as of this encounter Care Teams Senior Sas Programmer Relationship Specialty Start Date End Date Andrez Krause PA-C PCP - General Physician Trailer Tank Truck Driver - Medical 10/09/15 05/29/21 Andrez Krause PA-C [address] [facility] [place] [address] PCP - Assigned PCP 09/13/15 12/14/18 Heaven Brunson PA-C [facility] [address] [place] [address] PCP - General Physician Trailer Tank Truck Driver 05/30/21 Andrez Krause PA-C [address] [place] [address] Assigned PCP 09/13/15 06/20/22 Mona Tian MD [address] [place] [address] Assigned OBGYN Provider 08/03/20 Brett Torres [facility] [address] [facility] 255 [place], [place] [address] Assigned Behavioral Health Provider 07/14/21 01/02/23 Karen Galvan PA-C [address] [facility] 103 [place] [address] Assigned Sleep Provider 09/01/21 Marie Lawrence, [facility] 57[address] [facility] 200 [place] [address] Assigned MTM Pharmacist 04/05/22 documented as of this encounter
--- OUTSIDE RECORDS SUMMARY | 2023-11-10 09:27 | XMS_ITS | Encounter Summary ---
Author Name Unknown Organization [place] Address [address] [place] [address]. [place] [address] Care Team Providers Care Vocational Adviser Name Role Phone Andrez Krause PA-C Primary Care Provider Andrez Krause PA-C Unavailable + [phone] Andrez Krause PA-C Unavailable + [phone] Mona Tian MD Unavailable +[phone] Heaven Brunson PA-C Primary Care Provider Brett Torres MD Unavailable [phone] Karen Galvan PA-C Unavailable +[phone] Marie Lawrence [facility] Unavailable [phone] Reason for Referral * Consultation - Closed Specialty Diagnoses / Procedures Referred By Andie t Referred To Contact Diagnoses Migraine without aura and without status migrainosus, not intractable Andrez Krause PA-C [address] [place] [address] [facility]5 [place] [address] Referral ID Status Reason Start Date Expiration Date Visits Re quested Visits Authorized [id number] Closed 11/22/2018 11/22/2019 1 1 Comments Your provider has referred you for the following: Consult at [facility]: [facility] [email or web address] Please be aware that coverage of these services is subject to the terms and limitations of your health insurance plan. Call member services at your health plan with any benefit or coverage questions. Please bring the following with you to your appointment: (1) Any X-Rays, CTs or MRIs which have been performed. Contact the facility where they were done to arrange for berry picker machine operator prior to your scheduled appointment. (2) List of current medications (3) This referral request (4) Any documents/labs given to you for this referral ER CHECKER Reason for Visit * Reason Onset Date Comments Patient/info Update 11/11/2018 Prior auth f or Aimovig Encounter Details Date Type Department Care Team (Late st Contact Info) Description 11/11/2018 [facility] [address], [address] [place] [address] Andrez Krause PA-C [address] [place] [address] Patient/info Update (Prior auth for Aimovig) Social History Tobacco Use Types Packs/Day Years Used Date Smoking Tobacco: Never Smokeless Tobacco: Never Alcohol Use Standard Drinks/Week Comments Yes 0 (1 standard drink = 0.6 oz pur e alcohol) Social, rare PHQ-2 Answer Date Recorded PHQ-2 Score 6 10/19/2018 Sex and Gender Information Value Date Recorded Sex Assigned at Female 11/04/2018 8:36 AM ROLLER CHECKER Gender Identity Female 11/04/2018 8:36 AM ROLLER CHECKER Sexual Orientation Straight 11/04/2018 8: 36 AM ROLLER CHECKER documented as of this encounter Miscellaneous Notes * Telephone Encounter - Andrez Krause PA-C - 11/22/2018 4:57 PM ROLLER CHECKER Not sure of her network or where she has been before but will refer where I usually do. Please callher with info. Andrez Arango ER CHECKER * Telephone Encounter - Nalini Conte RN [...] sent to patient. Nalini Conte RN ?? ER CHECKER documented in this encounter Plan of Treatment [...] Depression Total Score: 21 019 5:05 PM ROLLER CHECKER documented as of this encounter Care Teams Vocational Adviser Relationship Specialty Start Date End Date Andrez Krause PA-C PCP - General Physician Fabric Sourcer - Medical 10/09/15 05/29/21 Andrez Krause PA-C [address] [place] [address] PCP - Assigned PCP 09/13/15 12/14/18 Heaven Brunson PA-C [facility] [address] [place] [address] PCP - General Physician Fabric Sourcer 05/30/21 Andrez Krause PA-C [address] [place] [address] Assigned PCP 09/13/15 06/20/22 Mona Tian MD [address] [place] [address] Assigned OBGYN Provider 08/03/20 Brett Torres [facility] [address] [facility] 255 [place], [place] [address] Assigned Behavioral Health Provider 07/14/21 01/02/23 Karen Galvan PA-C [address] [facility] 103 [place] [address] Assigned Sleep Provider 09/01/21 Marie Lawrence, [facility] 5775 [facility] 200 [place], [place] [id number] Assigned MTM Pharmacist 04/05/22 documented as of this encounter
--- OUTSIDE RECORDS SUMMARY | 2023-11-10 09:27 | XMS_ITS | Encounter Summary ---
Author Name Unknown Organization [place] Address [address] [place] [address] Care Team Providers Care Service Shop Foreman Name Role Phone Andrez Krause PA-C Primary Care Provider Andrez Krause PA-C Unavailable [phone] Andrez Krause PA-C Unavailable [phone] Mona Tian MD Unavailable [phone] Heaven Brunson PA-C Primary Care Provider Brett Torres MD Unavailable [phone] Karen Galvan PA-C Unavailable [phone] Marie Lawrence [facility] Unavailable +[phone] Encounter Details Date Type Department Care Team (Late st Contact Info) Description 04/03/2018 MyC Medical Advice [address] [address] Geraldine Chavarria, RN Social History Tobacco Use Types Packs/Day Years Used Date Smoking Tobacco: Never Smokeless Tobacco: Never Alcohol Use Standard Drinks/Week Comments Yes 0 (1 standard drink = 0.6 oz pur e alcohol) socially Sex and Gender Information Value Date Recorded Sex Assigned at Female 11/04/2018 8:36 AM RACING SECRETARY Gender Identity Female 11/04/2018 8:36 AM RACING SECRETARY Sexual Orientation Straight 11/04/2018 8: 36 AM RACING SECRETARY documented as of this encounter Plan of Treatment Not on file documented as of this encounter Visit Diagnoses Not on filedocumented in this encounter Additional Health Concerns Assessment Noted Time PHQ-9 Depression Total Score: 23 018 7:00 AM CDT documented as of this encounter Care Teams Service Shop Foreman Relationship Specialty Start Date End Date Andrez Krause PA-C PCP - General Physician Hotel Services Supervisor - Medical 10/09/15 05/29/21 Andrez Krause PA-C [address] [place] [address] PCP - Assigned PCP 09/13/15 12/14/18 Heaven Brunson PA-C [facility] [address] [place] [address] PCP - General Physician Hotel Services Supervisor 05/30/21 Andrez Krause PA-C [address] [place] [address] Assigned PCP 09/13/15 06/20/22 Mona Tian MD [address] [place] [address] Assigned OBGYN Provider 08/03/20 Brett Torres [facility] [address] [facility] 255 [place] [address] Assigned Behavioral Health Provider 07/14/21 01/02/23 Karen Galvan PA-C 6363 [facility] 103 [place] [address] Assigned Sleep Provider 09/01/21 Marie Lawrence, [facility] [address] [address] Assigned MTM Pharmacist 04/05/22 documented as of this encounter
--- OUTSIDE RECORDS SUMMARY | 2023-11-10 09:28 | XMS_ITS | Encounter Summary ---
Author Name Unknown Organization [place] [facility] Address [address] [place] [address] Care Team Providers Care Auto Body Repair Teacher Name Role Phone Andrez Krause PA-C Primary Care Provider Andrez Krause PA-C Unavailable + [phone] Andrez Krause PA-C Unavailable + [phone] Mona Tian MD Unavailable [phone] Heaven Brunson PA-C Primary Care Provider Brett Torres MD Unavailable [phone] Karen Galvan PA-C Unavailable [phone] Marie Lawrence [facility] Unavailable [phone] Reason for Visit * Reason Onset Date Comments Refill Request 12/11/2015 Zoloft, Imitrex Encounter Details Date Type Department Care Team (Late st Contact Info) Description 12/11/2015 MyC Refill [address], [address] [place] [address] Andrez Krause PA-C [address] [place] [address] Refill Request (Zoloft, Imitrex) Social History Tobacco Use Types Packs/Day Years Used Date Smoking Tobacco: Never Alcohol Use Standard Drinks/Week Comments Yes 0 (1 standard drink = 0.6 oz pur e alcohol) Sex and Gender Information Value Date Recorded Sex Assigned at Female 11/04/2018 8:36 AM FILTERER Gender Identity Female 11/04/2018 8:36 AM FILTERER Sexual Orientation Straight 11/04/2018 8: 36 AM FILTERER documented as of this encounter Miscellaneous Notes * Telephone Encounter - Nalini Conte RN - 12/11/2015 10:43 AM CST Rx's already filled 11/23/[address] [facility]. Nalini Conte RN ERER * Telephone Encounter - Nalini Conte RN - 12/11/2015 10:43 AM CSTMessage from MyChart: Original authorizing provider: LUIS ANTONIO Molina would like a refill of the following medications: sertraline (ZOLOFT) 50 MG tablet [Andrez Kruase PA-C] SUMAtriptan (IMITREX) 100 MG tablet [Andrez Krause PA-C] Preferred pharmacy: [id number] - [place], [place] - [address] Comment: ERER documented in this encounter Plan of Treatment [...] Total Score: 7 11/24/19 16 8:21 AM FILTERER documented as of this encounter Care Teams Auto Body Repair Teacher Relationship Specialty Start Date End Date Andrez Krause PA-C PCP - General Physician Audio Visual Project Manager - Medical 10/09/15 05/29/21 Andrez Krause PA-C [address] [facility] [place] [address] PCP - Assigned PCP 09/13/15 12/14/18 Heaven Brunson PA-C [facility] [address] [place] [address] PCP - General Physician Audio Visual Project Manager 05/30/21 Andrez Krause PA-C [address] [place] [address] Assigned PCP 09/13/15 06/20/22 Mona Tian MD [address] [place], [place] [address] Assigned OBGYN Provider 08/03/20 Brett Torres [facility] [address] [facility] 255 [place], [place] [id number] Assigned Behavioral Health Provider 07/14/21 01/02/23 Karen Galvan PA-C [address] [facility] [address] [place], [place] [address] Assigned Sleep Provider 09/01/21 Marie Lawrence [facility] [address] [facility] [address] [place], [place] [id number] Assigned MTM Pharmacist 04/05/22 documented as of this encounter
--- OUTSIDE RECORDS SUMMARY | 2023-11-10 09:28 | XMS_ITS | Encounter Summary ---
Author Name Unknown Organization [place] Address [address] [place] [address] Care Team Providers Care Drum Sander Name Role Phone Andrez Krause PA-C Primary Care Provider Andrez Krause PA-C Unavailable [phone] Andrez Krause PA-C Unavailable [phone] Mona Tian MD Unavailable [phone] Heaven Brunson PA-C Primary Care Provider Brett Torres MD Unavailable [phone] Karen Galvan PA-C Unavailable + [phone] Marie Lawrence [facility] Unavailable [phone] Encounter Details Date Type Department Care Team (Late st Contact Info) Description 12/31/2015 MyC Medical Advice [address], [address] [place] [address] Brittani Caraballo RN Social History Tobacco Use Types Packs/Day Years Used Date Smoking Tobacco: Never Alcohol Use Standard Drinks/Week Comments Yes 0 (1 standard drink = 0.6 oz pur e alcohol) Sex and Gender Information Value Date Recorded Sex Assigned at Female 11/04/2018 8:36 AM CANINE DEPUTY Gender Identity Female 11/04/2018 8:36 AM CANINE DEPUTY Sexual Orientation Straight 11/04/2018 8: 36 AM CANINE DEPUTY documented as of this encounter Plan of Treatment Not on file documented as of this encounter Visit Diagnoses Not on filedocumented in this encounter Additional Health Concerns Assessment Noted Time PHQ-9 Depression Total Score: 21 2 016 8:26 AM CDT documented as of this encounter Care Teams Drum Sander Relationship Specialty Start Date End Date Andrez Krause PA-C PCP - General Physician Precipitate Washer - Medical 10/09/15 05/29/21 Andrez Krause PA-C [address] [place] [address] PCP - Assigned PCP 09/13/15 12/14/18 Heaven Brunson PA-C [facility] [address] [place] [address] PCP - General Physician Precipitate Washer 05/30/21 Andrez Krause PA-C [address] [place] [address] Assigned PCP 09/13/15 06/20/22 Mona Tian MD [address] [facility] [place] [address] Assigned OBGYN Provider 08/03/20 Brett Torres [facility] [address] [facility] 255 [place] [address] Assigned Behavioral Health Provider 07/14/21 01/02/23 Karen Galvan PA-C [address] [address] Assigned Sleep Provider 09/01/21 Marie Lawrence, [facility] [address] [facility] 200 [place] [address] Assigned MTM Pharmacist 04/05/22 documented as of this encounter
--- OUTSIDE RECORDS SUMMARY | 2023-11-10 09:28 | XMS_ITS | Encounter Summary ---
Author Name Unknown Organization [place] Address [address] [place] [address] Care Team Providers Care Attorney At Law Name Role Phone Andrez Krause PA-C Primary Care Provider Andrez Krause PA-C Unavailable + [phone] Andrez Krause PA-C Unavailable + [phone] Mona Tian MD Unavailable [phone] Heaven Brunson PA-C Primary Care Provider Brett Torres MD Unavailable [phone] Karen Galvan PA-C Unavailable + [phone] Marie Lawrence [facility] Unavailable [phone] Reason for Visit * Reason Onset Date Comments Refill Request 01/02/2016 Imitrex Encounter Details Date Type Department Care Team (Late st Contact Info) Description 01/02/2016 MyC Refill [address], [address] [place] [address] Andrez Krause PA-C [address] [place] [address] Refill Request (Imitrex) Social History Tobacco Use Types Packs/Day Years Used Date Smoking Tobacco: Never Alcohol Use Standard Drinks/Week Comments Yes 0 (1 standard drink = 0.6 oz pur e alcohol) Sex and Gender Information Value Date Recorded Sex Assigned at Female 11/04/2018 8:36 AM RETICLE PRINTER Gender Identity Female 11/04/2018 8:36 AM RETICLE PRINTER Sexual Orientation Straight 11/04/2018 8: 36 AM RETICLE PRINTER documented as of this encounter Miscellaneous Notes [...] # refills: 1 Last Office Visit with [facility] or [facility] prescribing provider: 11/23/2015 Next 5 appointments (look out 90 days) Jan 08, 2016 4:30 PM Anastasiya Long with Andrez Krause PA-C [facility] [address] [place] [address] BP Readings from Last 3 Encounters: [...] following medications: SUMAtriptan (IMITREX) 100 MG tablet [nAdrez Krause PA-C] Preferred pharmacy: [id number] - [facility] [id number] [place] [address] Comment: documented in this encounter Plan of [...] documented as of this encounter Care Teams Attorney At Law Relationship Specialty Start Date End Date Andrez Krause PA-C PCP - General Physician Dietary Internship - Medical 10/09/15 05/29/21 Andrez Krause PA-C [address] [place] [address] PCP - Assigned PCP 09/13/15 12/14/18 Heaven Brunson PA-C [facility] [address] [place] [address] PCP - General Physician Dietary Internship 05/30/21 Andrez Krause PA-C [address] [place] [address] Assigned PCP 09/13/15 06/20/22 Mona Tian MD [address] [place], [place] [address] Assigned OBGYN Provider 08/03/20 Brett Torres [facility] [address] [facility] 255 [place], [place] [id number] Assigned Behavioral Health Provider 07/14/21 01/02/23 Karen Galvan PA-C [address] [facility] [address] [place], [place] [address] Assigned Sleep Provider 09/01/21 Marie Lawrence, [facility] 57[address] [facility] 200 [place] [address] Assigned MTM Pharmacist 04/05/22 documented as of this encounter
--- NOTE | 2023-11-10 10:48 | W.ANESCHARGE ---
Anesthesia Charges Start Date/Time Anesthesia Start Date: 11/10/23 Anesthesia Start Time: 10:25 Stop Date/Time Anesthesia Stop Date: 11/10/23 Anesthesia Stop Time: 10:46
--- NOTE | 2023-11-10 10:58 | W.ANESCHARGE ---
Anesthesia Charges Start Date/Time Anesthesia Start Date: 11/10/23 Anesthesia Start Time: 10:25 Stop Date/Time Anesthesia Stop Date: 11/10/23 Anesthesia Stop Time: 10:46
== END 2023-11-10 09:18 | disposition home or self-care (01) ==
LOC: OP CLINIC 09:18
PROVIDERS: PCP Physician Assistant Medical; Visit Provider Surgery
DX: R19.8 Other specified symptoms and signs involving the digestive system and abdomen (principal); K20.0 Eosinophilic esophagitis
CPT/HCPCS: 00731; 43239; 88305; J2704

== ENCOUNTER 2023-11-12 13:13 | Outpatient (CLI) | payer BC, SELFPAY ==
--- NOTE | 2023-11-12 13:30 | CRLHL7_ITS ---
For Patients: As a result of the Century Cures Act, medical imaging exams and procedure reports are released immediately into your electronic medical record. You may view this report before your referring provider. If you have questions, please contact your health care provider. Clinical History: Abdominal pain Radionuclide Dose: Nuclear medicine hepatobiliary scan per protocol including gallbladder ejection fraction with CCK. 5.2 mCi 99m Tc mebrofenin IV. 2.3 mcg CCK intravenously. Comparison: None. Findings: Normal hepatic extraction and excretion of the radiopharmaceutical is present. There is prompt visualization of the common bile duct, followed by the gallbladder and in the small bowel. There is icpz-ef-omevzivy enterogastric reflux after CCK. After the administration of CCK, the patient was asymptomatic. There is near complete emptying of the gallbladder, with calculated ejection fraction of 90 percent. Impression: Hyperkinetic gallbladder. Enterogastric reflux, correlate for alkaline gastritis. Dictated by Ralf Saini MD @ 11/12/2023 5:30:12 PM (Electronically Signed)
== END 2023-11-12 13:14 | disposition home or self-care (01) ==
LOC: NM 13:13
PROVIDERS: PCP Physician Assistant Medical; Visit Provider Physician Assistant Medical
DX: R10.13 Epigastric pain (principal); K21.9 Gastro-esophageal reflux disease without esophagitis; K29.70 Gastritis, unspecified, without bleeding; R14.0 Abdominal distension (gaseous)
CPT/HCPCS: 78227; A9537; J2805

== ENCOUNTER 2023-12-14 11:11 | Day surgery (SDC) | payer BC, SELFPAY ==
[2023-12-14] MEDS: LACTATED RINGERS 1000 ML 1,000 ML 100 ML IV (11:25)
[2023-12-14 11:40] VITALS: BP 124/78; PULSE 95; RESP 16; TEMP 37.1; O2SAT 99
[2023-12-14 11:41] VITALS: BMI 39.4
--- NOTE | 2023-12-14 12:37 | XR_ITS ---
Final Report Patient: CHRISTI FUCHS Facility:?[facility] Patient ID:?[id number] Site Patient ID:?[id number]. Site :?[id number] Study:?XRay Extremity Right 2V FOOT-12/14/2023 2:09:48 PM Ordering Physician:?DR. HALL Final Report: Indication: RIGHT PLANTAR FASCIOTOMY Technique: Two fluoroscopic images of the right foot. Fluoroscopic time 3.1 seconds. IMPRESSION: Fluoroscopic guidance for right plantar fasciotomy. Dictated by Sin Bergman MD @ 12/15/2023 11:14:42 AM (Electronic Signature)
[2023-12-14] MEDS: CEFAZOLIN 1 GM inj IVP (13:00)
[2023-12-14] MEDS: BUPIVACAINE 0.5% 30 ML INJECTION (13:10)
--- NOTE | 2023-12-14 13:36 | W.ANESCHARGE ---
Anesthesia Charges Start Date/Time Anesthesia Start Date: 12/14/23 Anesthesia Start Time: 12:54 Stop Date/Time Anesthesia Stop Date: 12/14/23 Anesthesia Stop Time: 14:21
[2023-12-14 14:20] VITALS: BP 118/73; PULSE 93; RESP 16; TEMP 37.2; O2SAT 98
--- NOTE | 2023-12-14 14:26 | W.ANESCHARGE ---
Anesthesia Charges Start Date/Time Anesthesia Start Date: 12/14/23 Anesthesia Start Time: 12:54 Stop Date/Time Anesthesia Stop Date: 12/14/23 Anesthesia Stop Time: 14:21
--- NOTE | 2023-12-14 14:30 | W.PM.PODPROC ---
Date of Procedure: 12/14/23 Surgeon: Garbiel Josue DPM Pre-op Diagnosis: 1. Plantar fasciitis right 2. Tailor's bunion right Post-op Diagnosis: 1. Plantar fasciitis right 2. Tailor's bunion right Type of Procedure: 1. Plantar fasciotomy right 2. Fifth metatarsal ostectomy right Indications: Patient has longstanding plantar fasciitis and tailor's bunion causing increasing pain. She has elected surgical intervention. I reviewed the procedure, recovery, expectations potential complications. These include but are not limited to: Poor wound healing, infection, continued pain, potential need for future surgery, deep venous thrombosis, pulmonary embolism, complex regional pain syndrome and possible . All questions answered written consent obtained. Site marked. Procedure Description: Patient brought the operating room placed supine position on operating table. IV sedation was initiated local anesthetic injected into the right foot. She was prepped and draped in sterile fashion. Standard time-out protocol followed. The right foot was exsanguinated the tourniquet inflated. A small transverse incision made in the proximal arch just distal to the plantar fat pad. Incision was carried through skin subcutaneous tissues down to the plantar fascial band. Medial central bands were transected and a 5 mm section excised. Wound was thoroughly irrigated normal sterile saline. Skin closed with 3-0 nylon. A dorsal lateral incision made over the 5th metatarsal head. Incision was carried down through skin subcutaneous tissues. Linear capsular incision was made the tissue reflected away from the head of the 5th metatarsal. Using a combination of a sagittal saw and rotary bur the enlarged lateral prominence of the 5th metatarsal head was removed and remodeled. Rotary bur was then used to plantar plane the metatarsal head plantarly as well. C-arm confirmed adequate resection. Wound was thoroughly irrigated normal sterile saline. The capsular tissue was reapproximated with 4-0 Vicryl. Subcutaneous tissues reapproximated 4-0 Monocryl and skin closed with 4-0 Prolene. Sterile dressing was applied. Tourniquet was released and normal capillary fill time returned all digits. She was placed in a well-padded cam boot. She was transferred from OR to PACU vital signs stable vascular status intact she will be discharged per same-day protocols. She is given oxycodone for pain. She is nonweightbearing with crutches. Both written and verbal postop instructions given. Follow-up in 3 days. Complications: None apparent. Anesthesia: MAC and local Hemostasis: ankle Estimated blood loss (mL): 2 Disposition: same day
[2023-12-14 14:35] VITALS: BP 95/64; PULSE 81; RESP 16; O2SAT 100
[2023-12-14 14:50] VITALS: BP 101/67; PULSE 76; RESP 16; O2SAT 99
[2023-12-14 15:17] VITALS: BP 112/70; PULSE 74; RESP 16; O2SAT 99
== END 2023-12-14 15:39 | disposition home or self-care (01) ==
LOC: OR 11:12
PROVIDERS: PCP Physician Assistant Medical; Visit Provider Podiatrist
PROC: (CPT 28060; principal; 2023-12-14 12:15)
DX: M72.2 Plantar fascial fibromatosis (principal); M21.621 Bunionette of right foot
CPT/HCPCS: 28060; 28110; 01480; 73620; 76000; 97116; 97161; J0665; J0690; J2250; J2405; J2704; J3490; J7120

== ENCOUNTER 2024-02-10 13:54 | Outpatient (CLI) | payer BC, SELFPAY ==
--- OUTSIDE RECORDS SUMMARY | 2024-02-10 13:58 | XMS_ITS | Clinical Summary ---
Author Name Unknown Organization [facility] Address [place], [place] [address] Care Team Providers Care Fitness Trainer Name Role Phone Heaven Brunson PA-C Primary Care Provider [phone] Allergies Active Allergy Reactions Criticality Noted Date Comments Adhesive Contact Dermatitis,Itching,Rash 04/11 Iodine Contact Dermatitis,Itching,Rash 04/11 Medications Medication Sig Dispensed Refills Start Date End Date Status cholecalciferol, Vitamin D3, 2,000 unit tablet Take 50 mcg by mouth. Active hydrOXYzine HCL (ATARAX) 50 mg tablet 1 tablet as needed Active metFORMIN (GLUCOPHAGE) 1,000 mg tablet Take 500 mg by mouth two times daily with meals. Active Vyvanse 30 mg capsule 1 cap(s) orally every morning* 03/24/2023 Active etonogestrel subdermal implant (Nexplanon) 68 mg implant Active ondansetron (ZOFRAN) 4 mg tablet Take 1 tablet every 8 hours, as needed, for nausea Active metoprolol succinate (TOPROL XL) 25 mg Sustained-Release tablet Take 25 mg by mouth once daily. 10/19/2023 Active OXcarbazepine (TRILEPTAL) 300 mg tablet Take 300 mg by mouth two times daily. 10/30/2023 Active Nurtec ODT 75 mg orally disintegrating tablet Place 75 mg on the tongue once every other day. Active oxyCODONE (ROXICODONE) 5 mg immediate release tabletIndications:Tailo r's bunionette, right,Plantar fasciitis, bilateral Take 1-2 Tablets (5-10 mg) by mouth every 4 hours if needed for Pain. 20 Tablet 12/09/2023 Active Active Problems Problem Noted Date Diagnosed Date Severe episode of recurrent major depressive disorder, without psychotic features 11/23/2023 Irritable bowel syndrome wit h both constipation and diarrhea 11/23/2023 [place]O (nonalcoholic steatohepatitis) 11/23/2023 Sinus tachycardia 11/23/2023 Essential hypertension 11/23/2023 Major depressive disorder, single episode, moder ate 2007 Dysthymic disorder 2007 Rule Out - GENERALIZED ANXIETY DISORDER 02/12/20 07 Encounters Date Type Department Care Team Description 01/26/2024 1:15 PM CDT Office Visit [facility] [address] [place] [address] Gabriel Josue, DPEliseo Post-op (Right foot, DOS 12/14/23, 6 week post op) 01/26/2024 Travel 12/29/2023 1:30 PM CDT Office Visit [facility] [address] [place] [address] Gabriel Josue, DPM Post-op (Right 2 week post op visit, DOS 12/14/23) 12/29/2023 Travel 12/16/2023 10:45 AM SENIOR BUSINESS INTELLIGENCE ANALYST Office Visit [facility] [address] [facility] [place] [address] Gabriel Josue, DPM Post-op (Right initial post op visit, DOS 12/14/23) 12/16/2023 Travel 12/15/2023 Telephone [facility] [address] [place] [address] Gabriel Josue, DPM Surgical Followup 12/14/2023 9:15 AM SENIOR BUSINESS INTELLIGENCE ANALYST Office Visit [facility] at [facility] [address] [facility] [place] [place] [address] Gabriel Josue, DPM Surgery Scheduled 12/14/2023 Orders Only [facility] Scanner 1 scan: (1-Ord) CARMELO, AIMEE FOOT RT 2V, 12/14/2023 12/14/2023 Orders Only [facility] Scanner 1 scan: (1-Ord) [facility], PLANTAR FASCIOTOMY/METATARSAL OSTECTOMY, 12/14/2023 12/12/2023 Telephone [facility] [address] [place] [address] Gabriel Josue DPM Questions (SURGERY 12/14/2023 CHECK IN TIME ) 12/12/2023 Travel 11/23/2023 2:10 PM SENIOR BUSINESS INTELLIGENCE ANALYST Preop Visit [facility] [address] [place] [address] Carmen Beasley, DO Preoperative Exam (12/13 right foot @ [facility] ); Results (? Re fatty liver and her cbc ) 11/23/2023 Travel 11/20/2023 Telephone [facility] [address] [place] [address] Gabriel Josue DPM Questions (PRE OP ) 11/12/2023 Orders Only [facility] [address] [place] [address] Gabriel Josue DPEliseo <No scans attached> from Last 3 Months Immunizations Name Administration [...] Never Smokeless Tobacco: Never Tobacco Cessation:Counseling Given: Yes Alcohol Use Standard Drinks/Week Comments Yes 1 (1 standard drink = 0.6 oz pur e alcohol) occasinally PHQ-2 Answer Date Recorded PHQ-2 TOTAL SCORE 6 02/25/2021 Social Connections Answer Date Recorded Frequency of Communication with Friends and Fami ly 0 11/23/2023 Financial Resource Strain Answer Date R ecorded Difficulty of Paying Living Expenses 3 11/23/2023 Difficulty of Paying Living Expenses Not on file 11/23/2023 Food Insecurity Answer Date Recorded Worried About Running Out of Food in the Last Ye ar 1 11/23/2023 Transportation Needs Answer Date Record ed Lack of Transportation (Medical) 1 11/23/2023 Housing Stability Answer Date Recorded Unable to Pay for Housing in the Last Year 1 11/23/2023 Sex and Gender Information Value Date Recorded Sex Assigned at Not on file Gender Identity Not on file Sexual Orientation Not on file Obstetrics History Last Filed Vital Signs Vital Sign Reading Time Taken Comments Blood Pressure 118/81 12/29/2023 1:28 PM CDT Pulse 102 01/26/2024 1:15 PM CDT Temperature 36.9 ??C (98.5 ??F) 12/16/2023 11:[address] Respiratory Rate 16 05/22/2023 1:51 PM CDT Oxygen Saturation 95% 01/26/2024 1:15 PM CDT Inhaled Oxygen Concentration - - Weight 110.7 kg (244 lb) 01/26/2024 1:20 PM CDT Height 167.6 cm (5' 6) 11/23/2023 2:21 PM SENIOR BUSINESS INTELLIGENCE ANALYST Body Mass Index 39.38 11/23/2023 2:21 PM SENIOR BUSINESS INTELLIGENCE ANALYST Plan of Treatment Upcoming Encounters Date Type Department Care Team (Late st Contact Info) Description 03/29/2024 1:00 PM CDT Office Visit [facility] [address] [place] [address] Gabriel Josue DPM [address] [place] [address] Health Maintenance Due Date Last Done Comments HIV for age 15-65 02/12/2008 Hepatitis C screening for age 18-79 2011 Depression screening for age 12+ 02/25/2022 02/25/2021 Influenza for age 9-49 06/12/2024 0, 10/17/2009, 10/17/2009 Pap test for age 21-65 10/21/2024 10/21/2021, 2021 BMI (ht and wt on same day) for age 18+ 11/23/2024 11/23/2023, 02/04/2022, 02/25/2021 Tetanus booster 02/07/2031 02/07/2021, 01/11, 01/03/2011, Additional history exists Tdap Completed 01/03/2011 COVID-19 vaccine series Completed 08/26/2023, 02/25 Pneumococcal series for age 6-64 Aged Out No longer eligible based on patient's age to complete this topic Procedures Procedure Name Priority Date/Time Associated Diagnosis Comments SCAN-RADIOLOGY REPORT 12/14/2023 12:00 AM SENIOR BUSINESS INTELLIGENCE ANALYST SCAN-OPERATIVE/PROC EDURE REPORT 12/14/2023 12:00 AM SENIOR BUSINESS INTELLIGENCE ANALYST HPV THIN PREP Routine 10/21/2021 1:55 PM SENIOR BUSINESS INTELLIGENCE ANALYST from Last 3 Months or Most Recently Relevant to Health Maintenance Results * SCAN-RADIOLOGY REPORT (12/14/2023 12:00 AM SENIOR BUSINESS INTELLIGENCE ANALYST) Anatomical Region Laterality Modality Other Scanner OTHER * SCAN-OPERATIVE/PROCEDURE REPORT (12/14/2023 12:00 AM SENIOR BUSINESS INTELLIGENCE ANALYST) Scanner OTHER * HPV HIGH RISK (10/21/2021 1:55 PM SENIOR BUSINESS INTELLIGENCE ANALYST) TYPE 16 Negative Negative 10/22/2021 4:34 PM SENIOR BUSINESS INTELLIGENCE ANALYST [facility] TYPE 18 Negative Negative 10/22/2021 4:34 PM SENIOR BUSINESS INTELLIGENCE ANALYST [facility] OTHER HIGH RISK TYPES Negative Negative 10/22/2021 4:34 PM SENIOR BUSINESS INTELLIGENCE ANALYST [facility] Other (Cervical/Vagina l) 10/21/2021 1:55 PM SENIOR BUSINESS INTELLIGENCE ANALYST 10/22/2021 8:18 AM SENIOR BUSINESS INTELLIGENCE ANALYST Narrative [facility] - 10/22/2021 4:34 PM SENIOR BUSINESS INTELLIGENCE ANALYST HPV types 16, 18, 31, 33, 35, 39, 45, 51, 52, 56, 58, 59, 66 and 68 DNA were undetectable or below the pre-set threshold. Methodology: Tamiko Delmar 4800 HPV Test Heaven Brunson PA-C MICROBIOLOGY [facility] [address] [place] [address], from Last 3 Months or Most Recently Relevant to Health Maintenance Care Teams Fitness Trainer Relationship Specialty Start Date End Date Heaven Brunson PA-C [address] [place] [address] PCP - General Emergency Medicine 02/04/22
--- OUTSIDE RECORDS SUMMARY | 2024-02-10 14:01 | XMS_ITS | Encounter Summary ---
Author Name Unknown Organization [facility] Address [address] [place] [address] Care Team Providers Care Precision Machining Instructor Name Role Phone Andrez Krause PA-C Primary Care Provider Andrez Krause PA-C Unavailable + [phone] Andrez Krause PA-C Unavailable + [phone] Mona Tian MD Unavailable [phone] Heaven Brunson PA-C Primary Care Provider Brett Torres MD Unavailable [phone] Karen Galvan PA-C Unavailable [phone] Marie Lawrence [facility] Unavailable [phone] Reason for Visit * Reason Onset Date Comments Refill Request 12/11/2015 Zoloft, Imitrex Encounter Details Date Type Department Care Team (Late st Contact Info) Description 12/11/2015 MyC Refill [address], [address] [place] [address] Andrez Krause PA-C [address] [place] [address] Refill Request (Zoloft, Imitrex) Social History Tobacco Use Types Packs/Day Years Used Date Smoking Tobacco: Never Alcohol Use Standard Drinks/Week Comments Yes 0 (1 standard drink = 0.6 oz pur e alcohol) Sex and Gender Information Value Date Recorded Sex Assigned at Female 11/04/2018 8:36 AM PRACTICAL NURSE Gender Identity Female 11/04/2018 8:36 AM PRACTICAL NURSE Sexual Orientation Straight 11/04/2018 8: 36 AM PRACTICAL NURSE documented as of this encounter Miscellaneous Notes * Telephone Encounter - Nalini Conte RN - 12/11/2015 10:43 AM CST Rx's already filled 11/23/2015 at [facility]. Nalini Conte RN TICAL NURSE * Telephone Encounter - Nalini Conte RN - 12/11/2015 10:43 AM CSTMessage from MyChart: Original authorizing provider: LUIS ANTONIO Molina would like a refill of the following medications: sertraline (ZOLOFT) 50 MG tablet [Andrez Krause PA-C] SUMAtriptan (IMITREX) 100 MG tablet [Andrez Krause PA-C] Preferred pharmacy: [id number] - [place], [place] - [address] Comment: TICAL NURSE documented in this encounter Plan of Treatment [...] Total Score: 7 11/24/19 16 8:21 AM PRACTICAL NURSE documented as of this encounter Care Teams Precision Machining Instructor Relationship Specialty Start Date End Date Andrez Krause PA-C PCP - General Physician Window Tinter - Medical 10/09/15 05/29/21 Andrez Krause PA-C [address] [facility] [address] PCP - Assigned PCP 09/13/15 12/14/18 Heaven Brunson PA-C [facility] [address] [place] [address] PCP - General Physician Window Tinter 05/30/21 Andrez Krause PA-C [address] [place] [address] Assigned PCP 09/13/15 06/20/22 Mona Tian MD [address] [place], [place] [address] Assigned OBGYN Provider 08/03/20 Brett Torres [facility] [address] [facility] [address] [place], [place] [id number] Assigned Behavioral Health Provider 07/14/21 01/02/23 Karen Galvan PA-C [address] [facility] [address] [place], [place] [address] Assigned Sleep Provider 09/01/21 Marie Lawrence [facility] [address] [facility] [address] [place], [place] [id number] Assigned MTM Pharmacist 04/05/22 documented as of this encounter
== END 2024-02-10 13:55 | disposition home or self-care (01) ==
LOC: LKVREF 13:55
PROVIDERS: PCP Physician Assistant Medical; Visit Provider Nurse Practitioner Family
DX: K76.0 Fatty (change of) liver, not elsewhere classified (principal)
CPT/HCPCS: 80053

== ENCOUNTER 2024-02-11 10:52 | Emergency (ER) | payer BC, SELFPAY ==
[2024-02-11 11:09] VITALS: BP 141/87; PULSE 105; RESP 18; TEMP 36.5; O2SAT 99; BMI 38.7
--- OUTSIDE RECORDS SUMMARY | 2024-02-11 11:22 | XMS_ITS | Patient Health Record ---
Author Name Unknown Organization [facility] Address [address] [place] [address] [address] [place] [address] Care Team Providers Care Aluminum Container Tester Name Role Phone Magalieden Heaven Primary Care Provider Graeme Jean Unavailable [phone] Luis A Velazco Unavailable Unavailable ALLERGIES Allergen (clinical drug ingredient) Drug/Non Drug [...] Nurtec 75 MG 1 tablet on the tong ue and allow to dissolve Orally Unknown [...] migrainosus (G43.001) Active confirmed Migraine without aura (04742136) Problem Other chronic pain (G89.29) Active confirmed Chronic pain (20777616) Problem Spondylosis without myelopathy or radiculopathy, cervical region (M47.812) Active confirmed Cervical spondylosis without myelopathy (664317248) Problem Headache, unspecified (R51.9) Active confirmed Headache (26641771) PLAN OF TREATMENT No Information Insurance Providers Payer Name Payer Address Payer Phone Subscriber Number Group Number Insured Name Patient Relationship to Insured Coverage Start Date Coverage End Date [facility] [address] [address] [place] [phone] [id number] Starr Remy Self - patient is the insured MEDICAL (GENERAL) HISTORY Medical History History ICD Code Anxiety Depression Headaches Migraines Surgical History Surgery Date(Month/Year) Appendectomy 11/08/2021
--- OUTSIDE RECORDS SUMMARY | 2024-02-11 11:22 | XMS_ITS | Clinical Summary ---
Author Name Unknown Organization [facility] Address [place], [place] [address] Care Team Providers Care Custom Bookbinder Name Role Phone Heaven Brunson PA-C Primary Care Provider + [phone] Allergies Active Allergy Reactions Criticality Noted Date [...] Description 01/26/2024 1:15 PM CDT Office Visit [facility] [address] [facility] [place] [address] Gabriel Josue, DPEliseo Post-op (Right foot, DOS 12/14/23, 6 week post op) 01/26/2024 Travel 12/29/2023 1:30 PM CDT Office Visit [facility] [address] [place] [address] Gabriel Josue, DPM Post-op (Right 2 week post op visit, DOS 12/14/23) 12/29/2023 Travel 12/16/2023 10:45 AM KING MAKER Office Visit [facility] [address] [facility] [address] Gabriel Josue, DPM Post-op (Right initial post op visit, DOS 12/14/23) 12/16/2023 Travel 12/15/2023 Telephone [facility] [address] [facility] [place] [address] Gabriel Josue, DPM Surgical Followup 12/14/2023 9:15 AM KING MAKER Office Visit [facility] at [facility] [address] [facility] [place] [address] Gabriel Josue, DPM Surgery Scheduled 12/14/2023 Orders Only [facility] Scanner 1 scan: (1-Ord) CARMELO, AIMEE FOOT RT 2V, 12/14/2023 12/14/2023 Orders Only [facility] Scanner 1 scan: (1-Ord) [facility], PLANTAR FASCIOTOMY/METATARSAL OSTECTOMY, 12/14/2023 12/12/2023 Telephone [facility] [address] [place] [address] Gabriel Josue, ROSA ELENA Questions (SURGERY 12/14/2023 CHECK IN TIME ) 12/12/2023 Travel 11/23/2023 2:10 PM KING MAKER Preop [place] [facility] [address] [place] [address] Carmen Beasley, DO Preoperative Exam (12/13 right foot @ [facility] ); Results (? Re fatty liver and her cbc ) 11/23/2023 Travel 11/20/2023 Telephone [facility] [address] [place] [address] Gabriel Josue DPM Questions (PRE OP ) from Last 3 Months Immunizations Name Administration [...] History Relation Name Comments Psychiatric illness Mother Crystal Depressi on, anxiety - she has not [...] 167.6 cm (5' 6) 11/23/2023 2:21 PM KING MAKER Body Mass Index 39.38 11/23/2023 2:21 PM KING MAKER Plan of Treatment Upcoming Encounters Date Type Department Care Team (Late st Contact Info) Description 03/29/2024 1:00 PM CDT Office Visit [facility] [address] [place] [address] Gabriel Josue DPM [address] [place] [address] Health Maintenance Due Date Last Done Comments [...] Diagnosis Comments SCAN-RADIOLOGY REPORT 12/14/2023 12:00 AM KING MAKER SCAN-OPERATIVE/PROC EDURE REPORT 12/14/2023 12:00 AM KING MAKER HPV THIN PREP Routine 10/21/2021 1:55 PM KING MAKER from Last 3 Months or Most Recently Relevant to Health Maintenance Results * SCAN-RADIOLOGY REPORT (12/14/2023 12:00 AM KING MAKER) Anatomical Region Laterality Modality Other Scanner OTHER * SCAN-OPERATIVE/PROCEDURE REPORT (12/14/2023 12:00 AM KING MAKER) Scanner OTHER * HPV HIGH RISK (10/21/2021 1:55 PM KING MAKER) TYPE 16 Negative Negative 10/22/2021 4:34 PM KING MAKER [facility] TYPE 18 Negative Negative 10/22/2021 4:34 PM KING MAKER [facility] OTHER HIGH RISK TYPES Negative Negative 10/22/2021 4:34 PM KING MAKER [facility] Other (Cervical/Vagina l) 10/21/2021 1:55 PM KING MAKER 10/22/2021 8:18 AM KING MAKER Narrative [facility] - 10/22/2021 4:34 PM KING MAKER HPV types 16, 18, 31, 33, 35, 39, 45, 51, 52, 56, 58, 59, 66 and 68 DNA were undetectable or below the pre-set threshold. Methodology: Tamiko Delmar 4800 HPV Test Heaven Brunson PA-C [facility] [address] [place] [address], from Last 3 Months or Most Recently Relevant to Health Maintenance Care Teams Custom Bookbinder Relationship Specialty Start Date End Date Heaven Brunson PA-C [address] [place] [address] PCP - General Emergency Medicine 02/04/22
--- NOTE | 2024-02-11 11:23 | US_ITS ---
Patient: CHRISTI FUCHS Facility:?[facility] RIS Patient ID:?[id number] Site Patient ID:?[id number]. Site :?1995 Study:?US-Abdomen -02/11/2024 12:07:47 PM Ordering Physician:?MARTHA BASURTO Final Report: INDICATION: Right upper quadrant pain. COMPARISON: 03/21/2024 TECHNIQUE: Right upper quadrant grayscale and limited color Doppler ultrasound. FINDINGS: Liver: Diffuse mildly increased hepatic parenchymal echotexture consistent with hepatic steatosis.. No suspicious focal lesion. No intrahepatic biliary ductal dilatation. Smooth contour. Normal hepatopedal portal venous blood flow. Gallbladder: Nondistended. Free of stones or significant sludge. Normal wall thickness. Negative sonographic Marshall sign. CBD: 4mm Pancreas: Normal where visualized. The pancreas is partially obscured and therefore incompletely evaluated. Right Kidney: Measures 11.6 cm in craniocaudal length. Normal echotexture. No hydronephrosis. No convincing sonographic evidence of nephrolithiasis. Midline Vasculature: Visualized aorta is without significant findings. Peritoneal Cavity: No significant ascites. Additional Findings: None. IMPRESSION: No acute findings. Diffusely increased hepatic parenchymal echotexture consistent with hepatic steatosis. Dictated by Reynold Ugalde MD @ 02/11/2024 12:16:41 PM Signed by:?Reynold Ugalde MD @02/11/2024 12:16:41 PM (Electronic Signature)
--- OUTSIDE RECORDS SUMMARY | 2024-02-11 11:23 | XMS_ITS | Continuity of Care Document ---
Author Name Unknown Organization [facility] Address [address] [facility] [place] [address] Phone Care Team Providers Care Director Clinical Applications Name Role Phone Pamela Ceja DNP Unavailable [...] Providers Copied on Encounter OFFICE/OUTPA TIENT VISIT, [facility], [address] [place], [place], [id number] , tel:[phone] [facility] Widespread pain (chief complaint) Chronic pain syndromeChronic migraine without auraOther middle or intermediate school principal (current) drug therapyPain in right ankle and joints of right footMyalgia, other site 4 Brenna Santiago. [address] [facility] 11, [address], [id number], [place]. tel:[phone] Referring Provider: Julio Ballard, [address] [facility] [place], [address] . tel:[phone] OFFICE/OUTPA TIENT VISIT, [facility], [address] [place], [place], [id number] , tel:[phone] [facility] headache (chief complaint) Chronic migraine w/o aura, not intractable, w/o stat migrNausea 0 Stephanie Man. [address] [facility] 11 [facility] [address], [place], [id number], [place]. tel:[phone] Referring Provider: Eliseo [facility] [address] [place], [address]. tel:[phone] [facility], [address] [place] [address], [id number] , [place] tel:[phone] [facility] Chronic migraine w/o aura, intractable, w/o stat migr Fredrick-0 0 Nyongesa Magda. [address], [place], [id number], [place]. tel:[phone] Referring Provider: Eliseo [facility] [address] [place], [address]. tel:[phone] [facility], [address] [place] [address], [id number] , [place] tel:[phone] [facility] No Information 0 Will Julio. [address] [place] [address], [id number], [place]. tel:[phone] [facility], [address] [place] [address], [id number] , [place] tel:[phone] [facility] Chronic migraine w/o aura, not intractable, w/o stat migrChronic migraine w/o aura, intractable, w/o stat migr Feb-0 0 Nyongesa Magda. [address], [id number], [place]. tel:[phone] Referring Provider: Eliseo [facility] [address] [place], [address]. tel:[phone] [facility], [address] [place] [address], [id number] , [place] tel:[phone] [facility] No Information 0 Nyongesa Magda. [address], [place], [id number], [place]. tel:[phone] [facility], [address] [place], [place], [id number] , [place] tel:[phone] [facility] [place] Chronic migraine w/o aura, intractable, w/o stat migr 9 [facility] Magda. [address] [facility] [address], [place], [place], [id number], [place]. tel:[phone] Referring Provider: Eliseo [facility] [address] [place], [address]. tel:[phone] [facility], [address] [place], [place], [id number] , [place] tel:[phone] [facility] [place] Chronic migraine w/o aura, intractable, w/o stat migr 9 [facility]. [address] [facility] [address], [place], [id number], [place]. tel:[phone] Referring Provider: Eliseo [facility] [address] [place], [address]. tel:[phone] OFFICE/OUTPA TIENT VISIT, [facility], [address] [place], [place], [id number] , [place] tel:[phone] [facility] [place] headache (chief complaint) Chronic migraine w/o aura, not intractable, w/o stat migrChronic pain syndromeOther middle or intermediate school principal (current) drug therapy 9 [facility]. [address], [place], [place], [id number], [place]. tel:[phone] Referring Provider: Eliseo [facility] [address] [place], [address]. tel:[phone] [facility], [address] [place] [address], [id number] , [place] tel:[phone] [facility] [place] Chronic migraine w/o aura, not intractable, w/o stat migr May- 9 Marco A Bajwa. [facility], [address], [place], [address], [place]. tel:[phone] Referring Provider: Eliseo [facility] [address] [place], [address]. tel:[phone] OFFICE/OUTPA TIENT VISIT, [facility], [address] [place], [place], [id number] , [place] tel:[phone] [facility] headache (chief complaint) Chronic pain syndromeChronic migraine w/o aura, not intractable, w/o stat migrOther snf (current) drug therapy [facility]. [address] [facility] [address], [place], [id number], [place]. tel:[phone] Referring Provider: Eliseo [facility] [address] [place], [address]. tel:[phone] OFFICE/OUTPA TIENT VISIT, [facility], [address] [place], [place], [id number] , [place] tel:[phone] [facility] headache (chief complaint) Chronic migraine w/o aura, not intractable, w/o stat migrChronic migraine w/o aura, intractable, w/o stat migrChronic pain syndrome Nyonge Magda. [address] [facility] [address], [place], [id number], [place]. tel:[phone] Referring Provider: Eliseo [facility] [address] [place], [address]. tel:[phone] [facility], [address] [place], [place], [id number] , [place] tel:[phone] [facility] Chronic migraine w/o aura, intractable, w/o stat migr 9 Nyongesa Magda. [address] [facility] [address], [place], [id number], [place]. tel:[phone] Referring Provider: El[facility]o [facility] [address] [place], [address]. tel:[phone] OFFICE/OUTPA TIENT VISIT, [facility], [address] [place], [place], [id number] , [place] tel:[phone] [facility] headache (chief complaint) Chronic pain syndromeChronic migraine w/o aura, not intractable, w/o stat migr [address] [place] [address] [address], [place], [place], [id number], [place]. tel:[phone] Referring Provider: El[facility]o [facility] [address] [place] [address], [address]. tel:[phone] OFFICE/OUTPA TIENT VISIT, [facility], [address] [place], [place], [id number] , [place] tel:[phone] [facility] Headache (chief complaint) Chronic migraine w/o aura, not intractable, w/o stat migrChronic pain syndrome 9 [facility]. [facility], [address], [place], [address], [place]. tel:[phone] Referring Provider: El[facility]o [facility] [address] [place], [address]. tel:[phone] Family History Family Member Type Diagnosis Age At Onset Problem (finding) Family history of chron ic migraines Payers Payer name Insurance type Covered democrat ID Authordaena tiemile(s) [employer] BL [id number] Social History Type Description Quantity Date Captured [...] And Reason For Visit From encounter dated '10/15/2023 13:40'. Widespread pain (chief complaint). Description: Severity [...] Tobacco Use. Due on 024 due Goal Review Allergy List. Due on due Goal Medication Reconciliation. D ue on due Goal Unhealthy drug use screening . Due on due Goal PHQ-9. Due on du e Goal Hepatitis C screening. Due o n due Goal Update Social History. Due o n due Goal Weight. Due on d ue Goal HPV. Due on due Goal Height. Due on d ue Goal Lifestyle education regardin g diet completed Referral Ordered: Andrez Krause -Family Medicine (related to Chronic migraine w/o aura, not intractable, w/o stat migr) ordered Referral Referred To: Andrez Krause [facility] [place], [phone] Ordered: Referrals: Family Medicine. Andrez Krause ordered History Of Present Illness Encounter Date Complaint History Of Prese nt Illness Widespread pain Severity level i s 5. Duration: chronic. The client describes it as sharp, achy and deep. It occurs persistently. The problem is worsening. Symptom is aggravated by running, standing, walking, changing positions, housework, movement and stairs. Relieving factors include stretching, massage, rest, heat, cold and lying down. Pertinent negatives include diarrhea, dyspnea, fever and incontinence (urinary). Comments: This i s my first evaluation of the patient. Outside records from [facility] are available for review.Starr is a 28 y/o female here for initial consult for widespread pain. She was previously a patient at [facility] in 2019. Pain gradually started while [...] also has chronic migraines without aura - 15 month. Has not had any lab work [...] is interested in all treatment options through [facility]. No other concerns today.Treatments Tried: Gabapentin- [...] for sleep onlyLow dose Naltrexone- not helpfulWellbutrinClonodineAmiovigQulipta headache (comments) Patient with 4/day severe headaches, associated with light sensitivity and nausea. Pt. requesting Toradol injection headache Severity: incapa citating. It occurs constantly. The problem is worse. Location is vertex. There is no radiation. The describes it as sharp and throbbing. Symptom is aggravated by noise and light. Denies relieving factors. headache Severity: 5. It occurs intermittently, has [...] to work No other concerns today. headache (comments) Patient is h ere for [...] the time. [facility] neurology [facility], [facility]. Headaches >15 days a monthAnn is interested in any treatment option and would like [facility] to assume management of pain care.Previous [...] Chronic migraine without aura Larry assessment Other middle or intermediate school principal (current) drug t herapy assessment Pain in right ankle and joints o f right foot assessment Myalgia, other site impression Starr is a 28 y/o fema le here for initial consult for widespread pain. She was previously a patient at [facility] in 2019. Pain gradually started while [...] without significant benefit to her pain. [place] O[place] OPERATOR reviewed and consistent. [place] Judicial criminal backgrounds check completed with no outstanding results or concerning convictions Homero-04-2024 Mental Status Date Cognitive Assessment Orientation - [place] ed to time, place, person, situation. Patient Care Teams Name Effective Dates (start - stop) Status Members No Information
--- OUTSIDE RECORDS SUMMARY | 2024-02-11 11:23 | XMS_ITS | Referral Summary ---
Author Name Unknown Organization [place] Address [address] [place] [address] Care Team Providers Care Respiratory Therapy Instructor Name Role Phone Heaven Brunson PA-C Primary Care Provider Allergies No known active allergies Medications Medication Sig Dispensed Refills Start Date End Date Status rizatriptan (MAXALT-DIRECTOR DIGITAL STRATEGY) 5 MG ODTIndications:Migra ine without aura and [...] tablet TAKE 1 TABLET BY MOUTH DAILY Active UBRELVY 100 MG tablet TK 1 T PO AT ONSET OF HEADACHE. CAN REPEAT ONCE IN 2 HOURS PRN 07/04/2020 Active NURTEC 75 MG TBDP Take 1 tablet at onset of headache 05/28/2021 Active QUETIAPINE FUMARATE ER PO Take 25 mg by mouth daily 10/18/2020 Active MELATONIN PO Active Hospital, Clinic, or Other Facility Administered [...] Sex Assigned at Female 11/04/2018 8:36 AM DELPHI PROGRAMMER Gender Identity Female 11/04/2018 8:36 AM DELPHI PROGRAMMER Sexual Orientation Straight 11/04/2018 8: 36 AM DELPHI PROGRAMMER Last Filed Vital Signs Vital Sign Reading Time Taken Comments Blood Pressure 132/83 07/03/2021 12:55 PM CDT Pulse 91 07/03/2021 12:55 PM CDT Temperature 36.4 ??C (97.6 ??F) 07/03/2021 12:55 PM C DT Respiratory Rate 15 10/30/2019 9:30 PM DELPHI PROGRAMMER Oxygen Saturation 99% 10/30/2019 10:45 PM DELPHI PROGRAMMER Inhaled Oxygen Concentration - - Weight 112 kg (247 lb) 07/03/2021 12:55 PM CDT Height 167.6 cm (5' 6) 07/03/2021 12:55 PM CDT Body Mass Index 39.87 07/03/2021 12:55 PM CDT Plan of Treatment Not on file Procedures Procedure Name Priority Date/Time Associated Diagnosis Comments PHQ-9 DEPRESSION SCREENING ORDER Routine 05/16/2019 PAP IMAGED THIN LAYER, DIAGNOSTIC Routine 07/27/2018 6:32 PM CDT ASCUS of cervix with negative high risk HPV from Last 3 Months or Most Recently Relevant to Health Maintenance Results * PHQ-9 DEPRESSION SCREENING ORDER (05/16/2019) PHQ9 SCORE 18 Genesis Nina - 05/16/2019 [facility] VISIT NOTE Provider Outside OTHER * Pap imaged thin layer diagnostic with HPV (select HPV order below) (07/27/2018 6:32 PM CDT) PAP NIL COPATH Copath Report Patient Name: CHRISTI FUCHS MR#: [id number] Specimen #: [id number] Collected: 07/27/2018 Received: 07/29/2018 Reported: 07/30/2018 13:12 Ordering Phy(s): ANDREZ AUGUSTIN For improved result formatting, select 'View Enhanced Report Format' under Linked Documents section. SPECIMEN/STAIN PROCESS: Pap Imaged thin layer prep diagnostic (SurePath, FocalPoint with guided screening) ? Pap-Cyto x 1, HPV ordered x 1 SOURCE: Cervical, endocervical Pap Imaged thin layer prep diagnostic (SurePath, FocalPoint with guided screening) SPECIMEN ADEQUACY: Satisfactory for evaluation. -Transformation zone component present. CYTOLOGIC INTERPRETATION: Negative for intraepithelial lesion or malignancy Electronically signed out by: CIERA Larsen (ASCP) Processed and screened at [facility], [facility] CLINICAL HISTORY: Currently not having periods, Intra-Uterine Device, Previous ASC-US Date of Last Pap: 11/20/2016, Papanicolaou Test Limitations: ??Cervical cytology is a screening test with limited sensitivity; regular screening is critical for cancer prevention; Pap tests are primarily effective for the diagnosis/preventi on of squamous cell carcinoma, not adenocarcinomas or other cancers. TESTING LAB LOCATION: [address] ??[id number] COLLECTION SITE: Client: ??[facility] Location: [facility] (R) COPATH Cytologic material (specimen) 07/27/2018 6:32 PM CDT 07/29/2018 10:09 AM CDT nAdrez JACKSON - OPTIMKali C LINICAL SPECIMEN COPATH from Last 3 Months or Most Recently Relevant to Health Maintenance Care Teams Respiratory Therapy Instructor Relationship Specialty Start Date End Date Heaven Brunson PA-C [facility] [address] [place], [place] [id number] PCP - General Physician Ski Patrol Officer 05/30/21
--- OUTSIDE RECORDS SUMMARY | 2024-02-11 11:23 | XMS_ITS | Encounter Summary ---
Author Name Unknown Organization [place] Address [address] [place] [address] Care Team Providers Care Director Law Enforcement Name Role Phone Andrez Krause PA-C Unavailable + [phone] Heaven Brunson PA-C Primary Care Provider Brett Torres MD Unavailable [phone] Karen Galvan PA-C Unavailable + [phone] Marie Lawrence [facility] Unavailable [phone] Encounter Details Date Type Department Care Team (Late st Contact Info) Description 07/09/2021 MyC [facility]ice [facility] [address] [facility] [address] [place] [address] Mona Strauss RN Social History Tobacco Use Types Packs/Day Years Used Date Smoking Tobacco: Never Smokeless Tobacco: Never Alcohol Use Standard Drinks/Week Comments Yes 0 (1 standard drink = 0.6 oz pur e alcohol) Social, rare PHQ-2 Answer Date Recorded PHQ-2 Score 6 07/03/2021 Sex and Gender Information Value Date Recorded Sex Assigned at Female 11/04/2018 8:36 AM MANUGRAPHER Gender Identity Female 11/04/2018 8:36 AM MANUGRAPHER Sexual Orientation Straight 11/04/2018 8: 36 AM MANUGRAPHER COVID-19 Exposure Response Date Recorded In the [...] as of this encounter Care Teams Director Law Enforcement Relationship Specialty Start Date End Date Heaven Brunson PA-C [facility] [address] [place] [address] PCP - General Physician Grand Jury Deputy Sheriff 05/30/21 Andrez Krause PA-C [address] [place] [address] Assigned PCP 09/13/15 06/20/22 Brett Torres [facility] [address] [facility] 255 [place], [place] [id number] Assigned Behavioral Health Provider 07/14/21 01/02/23 Karen Galvan PA-C [address] [facility] [address] [place] [address] Assigned Sleep Provider 09/01/21 Marie Lawrence, [facility] 5775 [facility] 200 [place], [place] [address] Assigned MTM Pharmacist 04/05/22 documented as of this encounter
--- OUTSIDE RECORDS SUMMARY | 2024-02-11 11:23 | XMS_ITS | Encounter Summary ---
Author Name Unknown Organization [facility] Address [address] [place] [address] Care Team Providers Care Hvac Instructor Name Role Phone Andrez Krause PA-C Primary Care Provider Andrez Krause PA-C Unavailable [phone] Mona Tian MD Unavailable [phone] Heaven Brunson PA-C Primary Care Provider Brett Torres MD Unavailable [phone] Karen Galvan PA-C Unavailable + [phone] Marie Lawrence [facility] Unavailable [phone] Encounter Details Date Type Department Care Team [...] Sex Assigned at Female 11/04/2018 8:36 AM FORESTRY FIRE AID Gender Identity Female 11/04/2018 8:36 AM FORESTRY FIRE AID Sexual Orientation Straight 11/04/2018 8: 36 AM FORESTRY FIRE AID documented as of this encounter Plan of Treatment Not on file documented as of this encounter Visit Diagnoses Not on filedocumented in this encounter Additional Health Concerns Assessment Noted Time PHQ-9 Depression Total Score: 23 05/05/2 019 9:13 AM CDT documented as of this encounter Care Teams Hvac Instructor Relationship Specialty Start Date End Date Andrez Krause PA-C PCP - General Physician Maple Syrup Maker - Medical 10/09/15 05/29/21 Heaven Brunson PA-C [facility] [address] [place] [address] PCP - General Physician Maple Syrup Maker 05/30/21 Andrez Krause PA-C [address] [facility] [place] [address] Assigned PCP 09/13/15 06/20/22 Mona Tian MD [address] [place] [place], [place] [address] Assigned OBGYN Provider 08/03/20 Brett Torres MD [facility]IC [address] [facility] 255 [place], [place] [id number] Assigned Behavioral Health Provider 07/14/21 01/02/23 Karen Galvan PA-C [address] [facility] 103 [place], [place] [address] Assigned Sleep Provider 09/01/21 Marie Lawrence, [facility] 5775 [facility] 200 [place] [address] Assigned MTM Pharmacist 04/05/22 documented as of this encounter
--- OUTSIDE RECORDS SUMMARY | 2024-02-11 11:23 | XMS_ITS | Clinical Summary ---
Author Name Unknown Organization [facility] Address [address] [place] [address] Care Team Providers Care Manager Harbor Name Role Phone Heaven Brunson PA-C Primary Care Provider Allergies No known active allergies Medications Medication Sig Dispensed Refills Start Date End Date Status rizatriptan (MAXALT-INTERNAL MEDICINE VETERINARY TECHNICIAN) 5 MG ODTIndications:Migra ine without aura and [...] Sex Assigned at Female 11/04/2018 8:36 AM COUNTER SERVER Gender Identity Female 11/04/2018 8:36 AM COUNTER SERVER Sexual Orientation Straight 11/04/2018 8: 36 AM COUNTER SERVER Last Filed Vital Signs Vital Sign Reading Time Taken Comments Blood Pressure 132/83 07/03/2021 12:55 PM CDT Pulse 91 07/03/2021 12:55 PM CDT Temperature 36.4 ??C (97.6 ??F) 07/03/2021 12:55 PM C DT Respiratory Rate 15 10/30/2019 9:30 PM COUNTER SERVER Oxygen Saturation 99% 10/30/2019 10:45 PM COUNTER SERVER Inhaled Oxygen Concentration - - Weight 112 kg (247 lb) 07/03/2021 12:55 PM CDT Height 167.6 cm (5' 6) 07/03/2021 12:55 PM CDT Body Mass Index 39.87 07/03/2021 12:55 PM CDT Plan of Treatment Health Maintenance Due Date Last Done Comments ADVANCE CARE PLANNING 1993 ANNUAL REVIEW OF HM ORDERS 1993 HIV SCREENING 02/12/2008 HEPATITIS C SCREENING 2011 HEPATITIS B IMMUNIZATION (1 of 3 - 19+ 3-dose series) 02/12/2012 YEARLY PREVENTIVE VISIT 07/27/2019 07/27/20 18, 11/20/2016, 10/09/2015 PAP 07/27/2021 07/27/2018, 02/0 06/2017, 10/09/2015 PHQ-9 12/31/2021 07/03/2021, 06/12, 06/05/2021, Additional history exists COVID-19 Vaccine ( season) 2023 02/25/2021 INFLUENZA VACCINE (Season Ended) 2024 11/05/2018 (Declined), 08/27/2010, 08/27/2010, Additional history exists DTAP/TDAP/TD [...] PHQ9 SCORE 18 Genesis Nina - 05/16/2019 [facility] PAIN [facility] VISIT NOTE Provider Outside OTHER * Pap imaged thin layer diagnostic with HPV (select HPV order below) (07/27/2018 6:32 PM CDT) PAP TYSHAWN Silva Report Patient Name: CHRISTI FUCHS MR#: [id number] Specimen #: [id number] Collected: 07/27/2018 Received: 07/29/2018 Reported: 07/30/2018 13:12 [...] CIERA Larsen (ASCP) Processed and screened at [facility] CLINICAL HISTORY: Currently not having periods, Intra-Uterine Device, Previous ASC-US Date of Last Pap: 11/20/2016, Papanicolaou Test Limitations: ??Cervical cytology is a screening test with limited sensitivity; regular screening is critical for cancer prevention; Pap tests are primarily effective for the diagnosis/preventi on of squamous cell carcinoma, not adenocarcinomas or other cancers. TESTING LAB LOCATION: [address] ??[address] COLLECTION SITE: Client: ??[facility] Location: [facility] (R) COPATH Cytologic material (specimen) 07/27/2018 6:32 PM CDT 07/29/2018 10:09 AM CDT Andrez JACKSON - OPTIMKali C LINICAL SPECIMEN COPATH from Last 3 Months or Most Recently Relevant to Health Maintenance Care Teams Manager Harbor Relationship Specialty Start Date End Date Heaven Brunson PA-C [facility] [address] [place], [place] [id number] PCP - General Physician Controller Operations And Hr Manager 05/30/21
--- OUTSIDE RECORDS SUMMARY | 2024-02-11 11:23 | XMS_ITS | Encounter Summary ---
Author Name Unknown Organization [facility] Address [address] [place] [address] Care Team Providers Care Information Technology Coordinator Name Role Phone JimiAndrez PA-C Unavailable [phone] Heaven Brunson PA-C Primary Care Provider Brett Torres MD Unavailable Karen Galvan PA-C Unavailable + [phone] Marie Lawrence [facility] Unavailable Encounter Details Date Type Department Care Team (Late st Contact Info) Description 07/25/2021 Telephone [facility] [place] [id number] [address] Brett Torres [facility] [address] [place] [address] [address] [place] [address] Social History Tobacco Use Types Packs/Day Years Used Date Smoking Tobacco: Never Smokeless Tobacco: Never Alcohol Use Standard Drinks/Week Comments Yes 0 (1 standard drink = 0.6 oz pur e alcohol) Social, rare PHQ-2 Answer Date Recorded PHQ-2 Score 6 07/03/2021 Sex and Gender Information Value Date Recorded Sex Assigned at Female 11/04/2018 8:36 AM CARETAKER RESORT Gender Identity Female 11/04/2018 8:36 AM CARETAKER RESORT Sexual Orientation Straight 11/04/2018 8: 36 AM CARETAKER RESORT COVID-19 Exposure Response Date Recorded In the [...] documented as of this encounter Care Teams Information Technology Coordinator Relationship Specialty Start Date End Date Heaven Brunson PA-C [facility] [address] [place] [address] PCP - General Physician Parcel Post Weigher 05/30/21 Andrez Krause PA-C [address] [place] [address] Assigned PCP 09/13/15 06/20/22 Brett Torres MD [facility] [address] [facility] [address] [place], [place] [address] Assigned Behavioral Health Provider 07/14/21 01/02/23 Karen Galvan PA-C 6363 [facility] 103 [place] [address] Assigned Sleep Provider 09/01/21 Marie Lawrence, [facility] 5775 [facility] 200 [place], [place] [id number] Assigned MTM Pharmacist 04/05/22 documented as of this encounter
--- OUTSIDE RECORDS SUMMARY | 2024-02-11 11:23 | XMS_ITS | Encounter Summary ---
Author Name Unknown Organization [place] Address [address] [place] [address] Care Team Providers Care Operations Clerk Name Role Phone KrauseAndrez baptiste PA-C Unavailable [phone] Mona Tian MD Unavailable [phone] Heaven Brunson PA-C Primary Care Provider Brett Torres MD Unavailable [phone] Karen Galvan PA-C Unavailable + [phone] Marie Lawrence [facility] Unavailable [phone] Encounter Details Date Type Department Care Team (Late st Contact Info) Description 06/05/2021 MyC Medical Advice [facility] [address] [facility] [address] [place] [address] Mendel Patricia Social History Tobacco [...] Sex Assigned at Female 11/04/2018 8:36 AM CARD DEALER Gender Identity Female 11/04/2018 8:36 AM CARD DEALER Sexual Orientation Straight 11/04/2018 8: 36 AM CARD DEALER documented as of this encounter Plan of Treatment Not on file documented as of this encounter Visit Diagnoses Not on filedocumented in this encounter Additional Health Concerns Assessment Noted Time PHQ-9 Depression Total Score: 22 021 7:02 AM CDT documented as of this encounter Care Teams Operations Clerk Relationship Specialty Start Date End Date Heaven Brunson PA-C [facility] [address] [place] [address] PCP - General Physician Hobber 05/30/21 Andrez Krause PA-C [address] [place] [address] Assigned PCP 09/13/15 06/20/22 Mona Tian MD [address] [place] [address] Assigned OBGYN Provider 08/03/20 Brett Torres MD [facility] [address] [facility] 255 [place], [place] [address] Assigned Behavioral Health Provider 07/14/21 01/02/23 Karen Galvan PA-C 6363 [facility] 103 [place] [address] Assigned Sleep Provider 09/01/21 Marie Lawrence, [facility] 57[address] [facility] [address] [place] [address] Assigned MTM Pharmacist 04/05/22 documented as of this encounter
--- OUTSIDE RECORDS SUMMARY | 2024-02-11 11:23 | XMS_ITS | Encounter Summary ---
Author Name Unknown Organization [place] Address [address] [place] [address] Care Team Providers Care Server Manager Name Role Phone JimiAndrez PA-C Unavailable [phone] Heaven Brunson PA-C Primary Care Provider Brett Torres MD Unavailable Karen Galvan PA-C Unavailable [phone] Marie Lawrence [facility] Unavailable Encounter Details Date Type Department Care Team (Late st Contact Info) Description 07/03/2021 MyC Medical Advice [facility] [address] [facility] [address] [place] [address] Brett Torres MD [facility] [address] [facility] [address] [place] [address] Social History Tobacco Use Types Packs/Day Years Used Date Smoking Tobacco: Never Smokeless Tobacco: Never Alcohol Use Standard Drinks/Week Comments Yes 0 (1 standard drink = 0.6 oz pur e alcohol) Social, rare PHQ-2 Answer Date Recorded PHQ-2 Score 6 07/03/2021 Sex and Gender Information Value Date Recorded Sex Assigned at Female 11/04/2018 8:36 AM AUTOMOTIVE SERVICE PROFESSIONAL Gender Identity Female 11/04/2018 8:36 AM AUTOMOTIVE SERVICE PROFESSIONAL Sexual Orientation Straight 11/04/2018 8: 36 AM AUTOMOTIVE SERVICE PROFESSIONAL COVID-19 Exposure Response Date Recorded In the [...] documented as of this encounter Care Teams Server Manager Relationship Specialty Start Date End Date Heaven Brunson PA-C [facility] [address] [place] [address] PCP - General Physician Technology Lab Teacher 05/30/21 Andrez Krause PA-C [address] [facility] [place] [address] Assigned PCP 09/13/15 06/20/22 Brett Torres MD [facility]INIC [address] [facility] 255 [place], [place] [address] Assigned Behavioral Health Provider 07/14/21 01/02/23 Karen Galvan PA-C [address] [facility] 103 [place], [place] [address] Assigned Sleep Provider 09/01/21 Marie Lawrence, [facility] 5775 [facility] 200 [place] [address] Assigned MTM Pharmacist 04/05/22 documented as of this encounter
--- OUTSIDE RECORDS SUMMARY | 2024-02-11 11:23 | XMS_ITS | Encounter Summary ---
Author Name Unknown Organization [place] Address [address] [place] [address] Care Team Providers Care Business Control Specialist Name Role Phone Andrez Krause PA-C Unavailable + [phone] Heaven Brunson PA-C Primary Care Provider Brett Torres MD Unavailable [phone] Karen Galvan PA-C Unavailable + [phone] Marie Lawrence [facility] Unavailable Encounter Details Date Type Department Care Team (Late st Contact Info) Description 12/04/2021 [facility] Medical Advice [facility] [address] [facility] [address] [place] [address] Mona Srtauss RN Social History Tobacco Use Types Packs/Day Years Used Date Smoking Tobacco: Never Smokeless Tobacco: Never Alcohol Use Standard Drinks/Week Comments Yes 0 (1 standard drink = 0.6 oz pur e alcohol) Social, rare PHQ-2 Answer Date Recorded PHQ-2 Score 6 07/03/2021 Sex and Gender Information Value Date Recorded Sex Assigned at Female 11/04/2018 8:36 AM GAS STOVE SERVICER HELPER Gender Identity Female 11/04/2018 8:36 AM GAS STOVE SERVICER HELPER Sexual Orientation Straight 11/04/2018 8: 36 AM GAS STOVE SERVICER HELPER documented as of this encounter Plan of Treatment Not on file documented as of this encounter Visit Diagnoses Not on filedocumented in this encounter Additional Health Concerns Assessment Noted Time PHQ-9 Depression Total Score: 24 021 12:59 PM CDT documented as of this encounter Care Teams Business Control Specialist Relationship Specialty Start Date End Date Heaven Brunson PA-C [facility] [address] [place] [address] PCP - General Physician Rag Room Supervisor 05/30/21 Andrez Krause PA-C [address] [place] [address] Assigned PCP 09/13/15 06/20/22 Brett Torres MD [facility]INIC [address] [facility] 255 [place], [place] [address] Assigned Behavioral Health Provider 07/14/21 01/02/23 Karen Galvan PA-C [address] [facility] 103 [place] [address] Assigned Sleep Provider 09/01/21 Marie Lawrence, [facility] 5775 [facility] 200 [place], [place] [id number] Assigned MTM Pharmacist 04/05/22 documented as of this encounter
--- OUTSIDE RECORDS SUMMARY | 2024-02-11 11:23 | XMS_ITS | Encounter Summary ---
Author Name Unknown Organization [place] Address [address] [place] [address] Care Team Providers Care Sheltered Workshop Worker Name Role Phone Andrez Krause PA-C Unavailable + [phone] Mona Tian MD Unavailable +[phone] Heaven Brunson PA-C Primary Care Provider Brett Torres MD Unavailable [phone] Karen Galvan PA-C Unavailable + [phone] Marie Lawrence [facility] Unavailable [phone] Encounter Details Date Type Department Care Team [...] Sex Assigned at Female 11/04/2018 8:36 AM INJECTION MOLDING ENGINEER Gender Identity Female 11/04/2018 8:36 AM INJECTION MOLDING ENGINEER Sexual Orientation Straight 11/04/2018 8: 36 AM INJECTION MOLDING ENGINEER documented as of this encounter Plan of Treatment Not on file documented as of this encounter Visit Diagnoses Not on filedocumented in this encounter Additional Health Concerns Assessment Noted Time PHQ-9 Depression Total Score: 23 021 9:44 AM CDT documented as of this encounter Care Teams Sheltered Workshop Worker Relationship Specialty Start Date End Date Heaven Brunson PA-C [facility] [address] [place] [address] PCP - General Physician Biofuels Operations Manager 05/30/21 Andrez Krause PA-C [address] [facility] [address] Assigned PCP 09/13/15 06/20/22 Mona Tian MD [address] [facility] [place] [address] Assigned OBGYN Provider 08/03/20 Brett Torres MD [facility]INIC [address] [facility] 255 [place], [place] [id number] Assigned Behavioral Health Provider 07/14/21 01/02/23 Karen Glavan PA-C [address] [facility] 103 [place] [address] Assigned Sleep Provider 09/01/21 Marie Lawrence, [facility] 5775 [facility] 200 [place], [place] [id number] Assigned MTM Pharmacist 04/05/22 documented as of this encounter
--- OUTSIDE RECORDS SUMMARY | 2024-02-11 11:23 | XMS_ITS | Encounter Summary ---
Author Name Unknown Organization [place] Address [address] [place] [address] Care Team Providers Care Memorial Marker Designer Name Role Phone Andrez Krause PA-C Unavailable + [phone] Heaven Brunson PA-C Primary Care Provider Brett Torres MD Unavailable [phone] Karen Galvan PA-C Unavailable [phone] Marie Lawrence [facility] Unavailable +[phone] Encounter Details Date Type Department Care Team (Late st Contact Info) Description 08/20/2021 [facility] [address] [address] Molly Hinson, [facility] Social History Tobacco Use Types Packs/Day Years Used Date Smoking Tobacco: Never Smokeless Tobacco: Never Alcohol Use Standard Drinks/Week Comments Yes 0 (1 standard drink = 0.6 oz pur e alcohol) Social, rare PHQ-2 Answer Date Recorded PHQ-2 Score 6 07/03/2021 Sex and Gender Information Value Date Recorded Sex Assigned at Female 11/04/2018 8:36 AM PANTS MAKER Gender Identity Female 11/04/2018 8:36 AM PANTS MAKER Sexual Orientation Straight 11/04/2018 8: 36 AM PANTS MAKER documented as of this encounter Plan of Treatment Not on file documented as of this encounter Visit Diagnoses Not on filedocumented in this encounter Additional Health Concerns Assessment Noted Time PHQ-9 Depression Total Score: 24 021 12:59 PM CDT documented as of this encounter Care Teams Memorial Marker Designer Relationship Specialty Start Date End Date Heaven Brunson PA-C [facility] [address] [place] [address] PCP - General Physician Letterpress Printing Machinist 05/30/21 Andrez Krause PA-C [address] [place] [address] Assigned PCP 09/13/15 06/20/22 Brett Torres [facility] [address] [facility] 255 [place] [address] Assigned Behavioral Health Provider 07/14/21 01/02/23 Karen Galvan PA-C [address] [facility] 103 [place], [place] [address] Assigned Sleep Provider 09/01/21 Marie Lawrence, [facility] 5775 [facility] 200 [place] [address] Assigned MTM Pharmacist 04/05/22 documented as of this encounter
--- OUTSIDE RECORDS SUMMARY | 2024-02-11 11:24 | XMS_ITS | Encounter Summary ---
Author Name Unknown Organization [place] Address [address] [place] [address] Care Team Providers Care Hotel Front Desk Clerk Name Role Phone Andrez Krause PA-C Primary Care Provider Andrez Kraues PA-C Unavailable + [phone] Andrez Krause PA-C Unavailable + [phone] Mona Tian MD Unavailable +[phone] Heaven Brunson PA-C Primary Care Provider Brett Torres MD Unavailable [phone] Karen Galvan PA-C Unavailable + [phone] Marie Lawrence [facility] Unavailable +[phone] Reason for Visit * Reason Onset Date Comments Refill Request 11/19/2017 Imitrex tablets Encounter Details Date Type Department Care Team (Late st Contact Info) Description 11/19/2017 MyC Medical Advice [address], [address] [place] [address] Andrez Krause PA-C [address] [place] [address] Refill Request (Imitrex tablets) Social History Tobacco Use Types Packs/Day Years Used Date Smoking Tobacco: Never Smokeless Tobacco: Never Alcohol Use Standard Drinks/Week Comments Yes 0 (1 standard drink = 0.6 oz pur e alcohol) socially Sex and Gender Information Value Date Recorded Sex Assigned at Female 11/04/2018 8:36 AM SENIOR MOBILE DEVELOPER Gender Identity Female 11/04/2018 8:36 AM SENIOR MOBILE DEVELOPER Sexual Orientation Straight 11/04/2018 8: 36 AM SENIOR MOBILE DEVELOPER documented as of this encounter Miscellaneous Notes * Telephone Encounter - Nalini Conte RN - 11/19/2017 3:48 PM CST Looks like SUMAtriptan (IMITREX) 100 MG tablet #9 was sent to pharmacy. Nalini Conte RN OR MOBILE DEVELOPER documented in this encounter Plan of Treatment Not on file documented as of this encounter Visit Diagnoses Not on filedocumented in this encounter Additional Health Concerns Assessment Noted Time PHQ-9 Depression Total Score: 19 018 9:18 AM SENIOR MOBILE DEVELOPER documented as of this encounter Care Teams Hotel Front Desk Clerk Relationship Specialty Start Date End Date Andrez Krause PA-C PCP - General Physician Boss Dyer - Medical 10/09/15 05/29/21 Andrez Krause PA-C [address] [place] [address] PCP - Assigned PCP 09/13/15 12/14/18 Heaven Brunson PA-C [facility] [address] [place] [address] PCP - General Physician Boss Dyer 05/30/21 Andrez Krause [place] [address] [place] [address] Assigned PCP 09/13/15 06/20/22 Mona Tian MD [address] [place] [address] Assigned OBGYN Provider 08/03/20 Brett Torres [facility] [address] [facility] 255 [place], [place] [address] Assigned Behavioral Health Provider 07/14/21 01/02/23 Karen Galvan PA-C [address] [facility] 103 [place], [place] [address] Assigned Sleep Provider 09/01/21 Marie Lawrence [facility] 5775 [facility] 200 [place], [place] [address] Assigned MTM Pharmacist 04/05/22 documented as of this encounter
--- OUTSIDE RECORDS SUMMARY | 2024-02-11 11:24 | XMS_ITS | Encounter Summary ---
Author Name Unknown Organization [place] Address [address] [place] [address] Care Team Providers Care Count Team Member Name Role Phone Andrez Krause PA-C Primary Care Provider Andrez Krause PA-C Unavailable +[phone] Mona Tian MD Unavailable [phone] Heaven Brunson PA-C Primary Care Provider Brett Torres MD Unavailable +[phone] Karen Galvan PA-C Unavailable + [phone] Marie Lawrence [facility] Unavailable +[phone] Encounter Details Date Type Department Care Team (Late st Contact Info) Description 04/01/2019 MyC Medical Advice [facility] [address] [place] [address] Tadeo Wilks MD 303 [facility] 100 131 160 [place] [address] Social History Tobacco Use Types Packs/Day Years Used Date Smoking Tobacco: Never Smokeless Tobacco: Never Alcohol Use Standard Drinks/Week Comments Yes 0 (1 standard drink = 0.6 oz pur e alcohol) Social, rare PHQ-2 Answer Date Recorded PHQ-2 Score 3 02/17/2019 Sex and Gender Information Value Date Recorded Sex Assigned at Female 11/04/2018 8:36 AM SAP PLANT MAINTENANCE CONSULTANT Gender Identity Female 11/04/2018 8:36 AM SAP PLANT MAINTENANCE CONSULTANT Sexual Orientation Straight 11/04/2018 8: 36 AM SAP PLANT MAINTENANCE CONSULTANT documented as of this encounter Plan of Treatment Not on file documented as of this encounter Visit Diagnoses Not on filedocumented in this encounter Additional Health Concerns Assessment Noted Time PHQ-9 Depression Total Score: 17 019 8:25 AM CDT documented as of this encounter Care Teams Count Team Member Relationship Specialty Start Date End Date Andrez Krause PA-C PCP - General Physician Lead Refinery Supervisor - Medical 10/09/15 05/29/21 Heaven Brunson PA-C [facility] [address] [place], [place] [address] PCP - General Physician Lead Refinery Supervisor 05/30/21 Andrez Krause PA-C [address] [place] [address] Assigned PCP 09/13/15 06/20/22 Mona Tian MD [address] [place], [place] [address] Assigned OBGYN Provider 08/03/20 Brett Torres [facility] [address] [facility] 255 [place], [place] [address] Assigned Behavioral Health Provider 07/14/21 01/02/23 Karen Galvan PA-C 6363 [facility] 103 [place], [place] [address] Assigned Sleep Provider 09/01/21 Marie Lawrence [facility] 5775 [facility] 200 [place] [address] Assigned MTM Pharmacist 04/05/22 documented as of this encounter
--- OUTSIDE RECORDS SUMMARY | 2024-02-11 11:24 | XMS_ITS | Encounter Summary ---
Author Name Unknown Organization [place] Address [address] [place] [address] Care Team Providers Care Athletic Equipment Manager Name Role Phone Andrez Krause PA-C Primary Care Provider Andrez Krause PA-C Unavailable [phone] Andrez Krause PA-C Unavailable [phone] Mona Tian MD Unavailable [phone] Heaven Brunson PA-C Primary Care Provider Brett Torres MD Unavailable +[phone] Karen Galvan PA-C Unavailable [phone] Marie Lawrence [facility] Unavailable +[phone] Encounter Details Date Type Department Care Team (Late st Contact Info) Description 04/03/2018 MyC Medical Advice [address] [address] Geraldine Chavarria, RN Social History Tobacco Use Types Packs/Day Years Used Date Smoking Tobacco: Never Smokeless Tobacco: Never Alcohol Use Standard Drinks/Week Comments Yes 0 (1 standard drink = 0.6 oz pur e alcohol) socially Sex and Gender Information Value Date Recorded Sex Assigned at Female 11/04/2018 8:36 AM PRESBYTERIAN CLERGY Gender Identity Female 11/04/2018 8:36 AM PRESBYTERIAN CLERGY Sexual Orientation Straight 11/04/2018 8: 36 AM PRESBYTERIAN CLERGY documented as of this encounter Plan of Treatment Not on file documented as of this encounter Visit Diagnoses Not on filedocumented in this encounter Additional Health Concerns Assessment Noted Time PHQ-9 Depression Total Score: 23 018 7:00 AM CDT documented as of this encounter Care Teams Athletic Equipment Manager Relationship Specialty Start Date End Date Andrez Krause PA-C PCP - General Physician Early Morning Babysitter - Medical 10/09/15 05/29/21 Andrez Krause PA-C [address] [place] [address] PCP - Assigned PCP 09/13/15 12/14/18 Heaven Brunson PA-C [facility] [address] [place] [address] PCP - General Physician Early Morning Babysitter 05/30/21 Andrez Krause PA-C [address] [place] [address] Assigned PCP 09/13/15 06/20/22 Mona Tian MD [address] [place] [address] Assigned OBGYN Provider 08/03/20 Brett Torres [facility] [address] [facility] 255 [place] [address] Assigned Behavioral Health Provider 07/14/21 01/02/23 Karen Galvan PA-C 6363 [facility] 103 [place] [address] Assigned Sleep Provider 09/01/21 Marie Lawrence, [facility] [address] [address] Assigned MTM Pharmacist 04/05/22 documented as of this encounter
--- OUTSIDE RECORDS SUMMARY | 2024-02-11 11:24 | XMS_ITS | Encounter Summary ---
Author Name Unknown Organization [place] Address [address] [place] [address] Care Team Providers Care Audit Intern Name Role Phone Andrez Krause PA-C Primary Care Provider Andrez Krause PA-C Unavailable [phone] Andrez Krause PA-C Unavailable [phone] Mona Tian MD Unavailable [phone] Heaven Brunson PA-C Primary Care Provider Brett Torres MD Unavailable [phone] Karen Galvan PA-C Unavailable [phone] [facility] Unavailable [phone] Encounter Details Date Type Department Care Team (Late st Contact Info) Description 12/11/2018 MyC Medical Advice [facility] [address] [place] [address] Josefina Diop, DYE RANGE FEEDER POT ANNEALER [address] [place] [address] [address] [place] [address] Social History Tobacco Use Types Packs/Day Years Used Date Smoking Tobacco: Never Smokeless Tobacco: Never Alcohol Use Standard Drinks/Week Comments Yes 0 (1 standard drink = 0.6 oz pur e alcohol) Social, rare PHQ-2 Answer Date Recorded PHQ-2 Score 6 10/19/2018 Sex and Gender Information Value Date Recorded Sex Assigned at Female 11/04/2018 8:36 AM WATER RESOURCE SPECIALIST Gender Identity Female 11/04/2018 8:36 AM WATER RESOURCE SPECIALIST Sexual Orientation Straight 11/04/2018 8: 36 AM WATER RESOURCE SPECIALIST documented as of this encounter Plan of Treatment Not on file documented as of this encounter Visit Diagnoses Not on filedocumented in this encounter Additional Health Concerns Assessment Noted Time PHQ-9 Depression Total Score: 21 019 5:05 PM WATER RESOURCE SPECIALIST documented as of this encounter Care Teams Audit Intern Relationship Specialty Start Date End Date Andrez Krause PA-C PCP - General Physician Ice Cream Dispenser - Medical 10/09/15 05/29/21 Andrez Krause PA-C [address] [place] [address] PCP - Assigned PCP 09/13/15 12/14/18 Heaven Brunson PA-C [facility] [address] [place] [address] PCP - General Physician Ice Cream Dispenser 05/30/21 Andrez Krause PA-C [address] [place] [address] Assigned PCP 09/13/15 06/20/22 Mona Tian MD [address] [place] [address] Assigned OBGYN Provider 08/03/20 Brett Torres [facility] [address] [address] Assigned Behavioral Health Provider 07/14/21 01/02/23 Karen Galvan PA-C [address] [facility] [address] [place] [address] Assigned Sleep Provider 09/01/21 Marie Lawrence, [facility] 5775 [facility] 200 [place], [place] [address] Assigned MTM Pharmacist 04/05/22 documented as of this encounter
--- OUTSIDE RECORDS SUMMARY | 2024-02-11 11:24 | XMS_ITS | Encounter Summary ---
Author Name Unknown Organization [place] Address [address] [place] [address] Care Team Providers Care Embossograph Operator Name Role Phone Andrez Krause PA-C Primary Care Provider Andrez Krause PA-C Unavailable +[phone] Mona Tian MD Unavailable [phone] Heaven Brunson PA-C Primary Care Provider Brett Torres MD Unavailable [phone] Karen Galvan PA-C Unavailable + [phone] Marie Lawrence [facility] Unavailable [phone] Reason for Visit * Reason Onset Date Comments Medication Question 07/02/2020 Encounter Details Date Type Department Care Team (Late st Contact Info) Description 07/02/2020 [facility] Medical Advice [address] [address] Mona Tian MD [facility] [address] Medication Question Social History Tobacco Use Types Packs/Day Years Used Date Smoking Tobacco: Never Smokeless Tobacco: Never Alcohol Use Standard Drinks/Week Comments Yes 0 (1 standard drink = 0.6 oz pur e alcohol) Social, rare PHQ-2 Answer Date Recorded PHQ-2 Score 3 02/17/2019 Sex and Gender Information Value Date Recorded Sex Assigned at Female 11/04/2018 8:36 AM SPOOL SALVAGER Gender Identity Female 11/04/2018 8:36 AM SPOOL SALVAGER Sexual Orientation Straight 11/04/2018 8: 36 AM SPOOL SALVAGER documented as of this encounter Miscellaneous Notes [...] documented as of this encounter Care Teams Embossograph Operator Relationship Specialty Start Date End Date Andrez Krause PA-C PCP - General Physician Escort Patients - Medical 10/09/15 05/29/21 Heaven Brunson PA-C [facility] [address] [place] [address] PCP - General Physician Escort Patients 05/30/21 Andrez Krause PA-C [address] [place] [address] Assigned PCP 09/13/15 06/20/22 Mona Tian MD [address] [place] [address] Assigned OBGYN Provider 08/03/20 Brett Torres [facility] 14552 [facility] 255 [place], [place] [address] Assigned Behavioral Health Provider 07/14/21 01/02/23 Karen Galvan PA-C 6363 [facility] 103 [place] [address] Assigned Sleep Provider 09/01/21 Marie Lawrence, [facility] 5775 [facility] 200 [place], [place] [address] Assigned MTM Pharmacist 04/05/22 documented as of this encounter
--- OUTSIDE RECORDS SUMMARY | 2024-02-11 11:24 | XMS_ITS | Encounter Summary ---
Author Name Unknown Organization [place] Address [address] [place] [address]. [place] [address] Care Team Providers Care Hedge Fund Trader Name Role Phone Andrez Krause PA-C Primary Care Provider Andrez Krause PA-C Unavailable [phone] Mona Tian MD Unavailable [phone] Heaven Brunson PA-C Primary Care Provider Brett Torres MD Unavailable [phone] Karen Galvan PA-C Unavailable + [phone] Marie Lawrence [facility] Unavailable [phone] Encounter Details Date Type Department Care Team (Late st Contact Info) Description 01/23/2019 MyC Medical Advice [address], [address] [place] [address] Andrez Krause PA-C [address] [place] [address] Social History Tobacco Use Types Packs/Day Years Used Date Smoking Tobacco: Never Smokeless Tobacco: Never Alcohol Use Standard Drinks/Week Comments Yes 0 (1 standard drink = 0.6 oz pur e alcohol) Social, rare PHQ-2 Answer Date Recorded PHQ-2 Score 6 10/19/2018 Sex and Gender Information Value Date Recorded Sex Assigned at Female 11/04/2018 8:36 AM TRAVELING SECRETARY Gender Identity Female 11/04/2018 8:36 AM TRAVELING SECRETARY Sexual Orientation Straight 11/04/2018 8: 36 AM TRAVELING SECRETARY documented as of this encounter Plan of Treatment Not on file documented as of this encounter Visit Diagnoses Not on filedocumented in this encounter Additional Health Concerns Assessment Noted Time PHQ-9 Depression Total Score: 019 5:05 PM TRAVELING SECRETARY documented as of this encounter Care Teams Hedge Fund Trader Relationship Specialty Start Date End Date Andrez Krause PA-C PCP - General Physician Rfp Writer - Medical 10/09/15 05/29/21 Heaven Brunson PA-C [facility] [address] [place] [address] PCP - General Physician Rfp Writer 05/30/21 Andrez Krause PA-C [address] [place] [address] Assigned PCP 09/13/15 06/20/22 Mona Tian MD [address] [place], [place] [address] Assigned OBGYN Provider 08/03/20 Brett Torres [facility] 10999 [facility] 255 [place], [place] [address] Assigned Behavioral Health Provider 07/14/21 01/02/23 Karen Galvan PA-C 6363 [facility] 103 [place], [place] [address] Assigned Sleep Provider 09/01/21 Marie Lawrence [facility] 5775 [facility] 200 [place] [address] Assigned MTM Pharmacist 04/05/22 documented as of this encounter
--- OUTSIDE RECORDS SUMMARY | 2024-02-11 11:24 | XMS_ITS | Encounter Summary ---
Author Name Unknown Organization [place] Address [address] [place] [address] Care Team Providers Care Top Precipitator Operator Helper Name Role Phone Andrez Krause PA-C Primary Care Provider Andrez Krause PA-C Unavailable [phone] Mona Tian MD Unavailable [phone] Heaven Brunson PA-C Primary Care Provider Brett Torres MD Unavailable [phone] Karen Galvan PA-C Unavailable + [phone] Marie Lawrence [facility] Unavailable +[phone] Reason for Visit * Reason Onset Date Comments Vaginal Problem 02/10/2020 bleeding Encounter Details Date Type Department Care Team (Late st Contact Info) Description 02/10/2020 [facility] [place] [address] [address] Mona Tian MD [facility] [address] Vaginal Problem (bleeding) Social History Tobacco Use Types Packs/Day Years Used Date Smoking Tobacco: Never Smokeless Tobacco: Never Alcohol Use Standard Drinks/Week Comments Yes 0 (1 standard drink = 0.6 oz pur e alcohol) Social, rare PHQ-2 Answer Date Recorded PHQ-2 Score 3 02/17/2019 Sex and Gender Information Value Date Recorded Sex Assigned at Female 11/04/2018 8:36 AM BLACK JACK DEALER Gender Identity Female 11/04/2018 8:36 AM BLACK JACK DEALER Sexual Orientation Straight 11/04/2018 8: 36 AM BLACK JACK DEALER COVID-19 Exposure Response Date Recorded In the [...] documented as of this encounter Care Teams Top Precipitator Operator Helper Relationship Specialty Start Date End Date Andrez Krause PA-C PCP - General Physician Tar Heater Operator - Medical 10/09/15 05/29/21 Heaven Brunson PA-C [facility] [address] [place], [place] [address] PCP - General Physician Tar Heater Operator 05/30/21 Andrez Krause PA-C [address] [place] [address] Assigned PCP 09/13/15 06/20/22 Mona Tian MD [address] [facility] [place] [address] Assigned OBGYN Provider 08/03/20 Brett Torres [facility] 17188 [facility] 255 [place], [place] [address] Assigned Behavioral Health Provider 07/14/21 01/02/23 Karen Galvan PA-C [address] [facility] 103 [place] [address] Assigned Sleep Provider 09/01/21 Marie Lawrence, [facility] 5775 [facility] 200 [place], [place] [address] Assigned MTM Pharmacist 04/05/22 documented as of this encounter
--- OUTSIDE RECORDS SUMMARY | 2024-02-11 11:24 | XMS_ITS | Encounter Summary ---
Author Name Unknown Organization [place] Address [address] [place] [address] Care Team Providers Care Casting And Locker Room Servicer Name Role Phone Andrez Krause PA-C Primary Care Provider Andrez Krause PA-C Unavailable + [phone] Andrez Krause PA-C Unavailable + [phone] Mona Tian MD Unavailable [phone] Heaven Brunson PA-C Primary Care Provider Brett Torres MD Unavailable [phone] Karen Galvan PA-C Unavailable + [phone] Marie Lawrence [facility] Unavailable +[phone] Reason for Visit * Reason Onset Date Comments Medication Request 12/07/2018 Atomoxetine 6 0mg Encounter Details Date Type Department Care Team (Late st Contact Info) Description 12/07/2018 [facility] [place] Advice [address], [address] [place] [address] Andrez Krause PA-C [address] [place] [address] Medication Request (Atomoxetine 60mg) Social History Tobacco Use Types Packs/Day Years Used Date Smoking Tobacco: Never Smokeless Tobacco: Never Alcohol Use Standard Drinks/Week Comments Yes 0 (1 standard drink = 0.6 oz pur e alcohol) Social, rare PHQ-2 Answer Date Recorded PHQ-2 Score 6 10/19/2018 Sex and Gender Information Value Date Recorded Sex Assigned at Female 11/04/2018 8:36 AM DOOR PANELER Gender Identity Female 11/04/2018 8:36 AM DOOR PANELER Sexual Orientation Straight 11/04/2018 8: 36 AM DOOR PANELER documented as of this encounter Miscellaneous Notes * Telephone Encounter - Andrez Krause PA-C - 12/09/2018 8:35 AM DOOR PANELER Of course just getting to this now. Likely would not have had time to do a PA anyway? I can send the refill and see what happens. Andrez PANELER * Telephone Encounter - Nalini Conte RN - 12/07/2018 3:32 PM CST Images from the original note were not included. 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 documented in this encounter Additional Health Concerns Assessment Noted Time PHQ-9 Depression Total Score: 21 019 5:05 PM DOOR PANELER documented as of this encounter Care Teams Casting And Locker Room Servicer Relationship Specialty Start Date End Date Andrez Krause PA-C PCP - General Physician Automatic Nailing Machine Operator - Medical 10/09/15 05/29/21 Andrez Krause PA-C [address] [place] [address] PCP - Assigned PCP 09/13/15 12/14/18 Heaven Brunson PA-C [facility] [address] [place] [address] PCP - General Physician Automatic Nailing Machine Operator 05/30/21 Andrez Krause PA-C [address] [place] [address] Assigned PCP 09/13/15 06/20/22 Mona Tian MD [address] [place], [place] [address] Assigned OBGYN Provider 08/03/20 Brett Torres [facility] 825[address] [facility] [address] [place], [place] [address] Assigned Behavioral Health Provider 07/14/21 01/02/23 Karen Galvan PA-C [address] [facility] 103 [place], [place] [address] Assigned Sleep Provider 09/01/21 Marie Lawrence, [facility] 5775 [facility] 200 [employer], [place] [address] Assigned MTM Pharmacist 04/05/22 documented as of this encounter
--- OUTSIDE RECORDS SUMMARY | 2024-02-11 11:24 | XMS_ITS | Encounter Summary ---
Author Name Unknown Organization [facility] Address [address] [place] [address]. [place] [address] Care Team Providers Care Teleprinter Name Role Phone Andrez Krause PA-C Primary Care Provider Andrez Krause PA-C Unavailable [phone] Mona Tian MD Unavailable [phone] Heaven Brunson PA-C Primary Care Provider Brett Torres MD Unavailable [phone] Karen Galvan PA-C Unavailable + [phone] [facility] Unavailable [phone] Encounter Details Date Type Department Care Team (Late st Contact Info) Description 12/22/2019 MyC Medical Advice [address], [address] [place] [address] Andrez Krause PA-C [address] [place] [address] Social History Tobacco Use Types Packs/Day Years Used Date Smoking Tobacco: Never Smokeless Tobacco: Never Alcohol Use Standard Drinks/Week Comments Yes 0 (1 standard drink = 0.6 oz pur e alcohol) Social, rare PHQ-2 Answer Date Recorded PHQ-2 Score 3 02/17/2019 Sex and Gender Information Value Date Recorded Sex Assigned at Female 11/04/2018 8:36 AM CONTRACT DESIGNER Gender Identity Female 11/04/2018 8:36 AM CONTRACT DESIGNER Sexual Orientation Straight 11/04/2018 8: 36 AM CONTRACT DESIGNER documented as of this encounter Plan of Treatment Not on file documented as of this encounter Visit Diagnoses Not on filedocumented in this encounter Additional Health Concerns Assessment Noted Time PHQ-9 Depression Total Score: 23 019 9:13 AM CDT documented as of this encounter Care Teams Teleprinter Relationship Specialty Start Date End Date Andrez Krause PA-C PCP - General Physician Poultry Pinner - Medical 10/09/15 05/29/21 Heaven Brunson PA-C [facility] [address] [place] [address] PCP - General Physician Poultry Pinner 05/30/21 Andrez Krause PA-C [address] [place] [address] Assigned PCP 09/13/15 06/20/22 Mona Tian MD [address] [place], [place] [address] Assigned OBGYN Provider 08/03/20 Brett Torres [facility] 03158 [facility] 255 [place], [place] [address] Assigned Behavioral Health Provider 07/14/21 01/02/23 Karen Galvan PA-C 6363 [facility] 103 [place], [place] [address] Assigned Sleep Provider 09/01/[address] [facility] 5775 [facility] 200 [place] [address] Assigned MTM Pharmacist 04/05/22 documented as of this encounter
--- OUTSIDE RECORDS SUMMARY | 2024-02-11 11:24 | XMS_ITS | Encounter Summary ---
Author Name Unknown Organization [place] Address [address] [place] [address] Care Team Providers Care Acls Nurse Name Role Phone Andrez Krause PA-C Primary Care Provider Andrez Krause PA-C Unavailable [phone] Andrez Krause PA-C Unavailable [phone] Mona Tian MD Unavailable [phone] Heaven Brunson PA-C Primary Care Provider Brett Torres MD Unavailable [phone] Karen Galvan PA-C Unavailable + [phone] Marie Lawrence [facility] Unavailable [phone] Reason for Visit * Reason Onset Date Comments Refill Request 04/29/2018 Encounter Details Date Type Department Care Team (Late st Contact Info) Description 04/29/2018 MyC Refill [facility] [address] [place] [address] Rhonda Middleton PA-C [address] [place] [address] Refill Request Social History Tobacco Use Types Packs/Day Years Used Date Smoking Tobacco: Never Smokeless Tobacco: Never Alcohol Use Standard Drinks/Week Comments Yes 0 (1 standard drink = 0.6 oz pur e alcohol) Social, rare Sex and Gender Information Value Date Recorded Sex Assigned at Female 11/04/2018 8:36 AM UPTWIST SPINNER Gender Identity Female 11/04/2018 8:36 AM UPTWIST SPINNER Sexual Orientation Straight 11/04/2018 8: 36 AM UPTWIST SPINNER documented as of this encounter Miscellaneous Notes * Telephone Encounter - Sweta Danielle RN - 04/29/2018 8:52 AM CDT Called the Pt to discuss refill. LM, waiting callback. Pt is a FM Pt with AP. Medication was [facility] provider. Pt needs to follow up with PCP to discuss refills. Please help her schedule when she calls back. Thanks. Sweta Danielle RN -- [facility] Workforce * Telephone Encounter - Sweta Danielle RN - 04/29/2018 8:49 AM [facility] Original authorizing provider: LUIS ANTONIO Mendoza would like a refill of the following medications: erenumab-aooe (AIMOVIG) 70 MG/ML injection [Rhonda Middleton PA-C] Preferred pharmacy: [id number] [address] ARSENIO BARGER Comment: documented in this encounter [...] documented as of this encounter Care Teams Acls Nurse Relationship Specialty Start Date End Date Andrez Krause PA-C PCP - General Physician Biotechnician - Medical 10/09/15 05/29/21 Andrez Krause PA-C [address] [place] [address] PCP - Assigned PCP 09/13/15 12/14/18 Heaven Brunson PA-C [facility] [address] [place] [address] PCP - General Physician Biotechnician 05/30/21 Andrez Krause PA-C [address] [place] [address] Assigned PCP 09/13/15 06/20/22 Mona Tian MD [address] [place] [address] Assigned OBGYN Provider 08/03/20 Brett Torres [facility] [address] [facility] 255 [place], [place] [address] Assigned Behavioral Health Provider 07/14/21 01/02/23 Karen Galvan PA-C [address] [facility] 103 [place] [address] Assigned Sleep Provider 09/01/21 Marie Lawrence, [facility] 5775 [facility] 200 [place] [address] Assigned MTM Pharmacist 04/05/22 documented as of this encounter
--- OUTSIDE RECORDS SUMMARY | 2024-02-11 11:24 | XMS_ITS | Encounter Summary ---
Author Name Unknown Organization [facility] Address [address] [place] [address] Care Team Providers Care Chief General Pediatric Clinic Name Role Phone Andrez Krause PA-C Primary Care Provider Andrez Krause PA-C Unavailable [phone] Mona Tian MD Unavailable [phone] Heaven Brunson PA-C Primary Care Provider Brett Torres MD Unavailable [phone] Karen Galvan PA-C Unavailable + [phone] Marie Lawrence [facility] Unavailable [phone] Reason for Visit * Reason Onset Date Comments Headache 03/20/2019 Encounter Details Date Type Department Care Team (Late st Contact Info) Description 03/20/2019 MyC Medical Advice [facility] [address] [place] [address] Tadeo Wilks MD 303 [facility] [address] [place], [place] [address] Headache Social History Tobacco Use Types Packs/Day Years Used Date Smoking Tobacco: Never Smokeless Tobacco: Never Alcohol Use Standard Drinks/Week Comments Yes 0 (1 standard drink = 0.6 oz pur e alcohol) Social, rare PHQ-2 Answer Date Recorded PHQ-2 Score 3 02/17/2019 Sex and Gender Information Value Date Recorded Sex Assigned at Female 11/04/2018 8:36 AM ASSISTED LIVING ASSISTANT Gender Identity Female 11/04/2018 8:36 AM ASSISTED LIVING ASSISTANT Sexual Orientation Straight 11/04/2018 8: 36 AM ASSISTED LIVING ASSISTANT documented as of this encounter Miscellaneous [...] with any surgical surgeries Tammie Pryor R.N. [facility] documented in this encounter Plan of Treatment Not on file documented as of this encounter Visit Diagnoses Not on filedocumented in this encounter Additional Health Concerns Assessment Noted Time PHQ-9 Depression Total Score: 17 019 8:25 AM CDT documented as of this encounter Care Teams Chief General Pediatric Clinic Relationship Specialty Start Date End Date Andrez Krause PA-C PCP - General Physician Prospect Manager - Medical 10/09/15 05/29/21 Heaven Brunson PA-C [facility] [address] [place] [address] PCP - General Physician Prospect Manager 05/30/21 Andrez Krause PA-C [address] [place] [address] Assigned PCP 09/13/15 06/20/22 Mona Tian MD [address] [place] [address] Assigned OBGYN Provider 08/03/20 Brett Torres [facility] [address] [facility] 255 [place], [place] [address] Assigned Behavioral Health Provider 07/14/21 01/02/23 Karen Galvan PA-C [address] [facility] 103 [place] [address] Assigned Sleep Provider 09/01/21 Marie Lawrence, [facility] [address] [facility] 200 [place], [place] [id number] Assigned MTM Pharmacist 04/05/22 documented as of this encounter
--- OUTSIDE RECORDS SUMMARY | 2024-02-11 11:24 | XMS_ITS | Encounter Summary ---
Author Name Unknown Organization [facility] Address [address] [place] [address] Care Team Providers Care Fire Operations Forester Name Role Phone Andrez Krause PA-C Primary Care Provider Andrez Krause PA-C Unavailable [phone] Mona Tian MD Unavailable [phone] Heaven Brunson PA-C Primary Care Provider Brett Torres MD Unavailable [phone] Karen Galvan PA-C Unavailable [phone] Marie Lawrence [facility] Unavailable [phone] Reason for Visit * Reason Onset Date Comments IUD 12/06/2019 Concerns Encounter Details Date Type Department Care Team (Late st Contact Info) Description 12/06/2019 MyC Medical Advice [address], [address] [place] [address] Andrez Krause PA-C [address] [place] [address] IUD (Concerns) Social History Tobacco Use Types Packs/Day Years Used Date Smoking Tobacco: Never Smokeless Tobacco: Never Alcohol Use Standard Drinks/Week Comments Yes 0 (1 standard drink = 0.6 oz pur e alcohol) Social, rare PHQ-2 Answer Date Recorded PHQ-2 Score 3 02/17/2019 Sex and Gender Information Value Date Recorded Sex Assigned at Female 11/04/2018 8:36 AM AUTOMOTIVE FLEET SUPERVISOR Gender Identity Female 11/04/2018 8:36 AM AUTOMOTIVE FLEET SUPERVISOR Sexual Orientation Straight 11/04/2018 8: 36 AM AUTOMOTIVE FLEET SUPERVISOR documented as of this encounter Miscellaneous Notes * Telephone Encounter - Andrez Krause PA-C - 12/07/2019 10:42 AM AUTOMOTIVE FLEET SUPERVISOR She can come in for a visit. May not need it actually physically checked. Sometimes we can give OCP's or progesterone to stop bleeding that has been prolonged. Phone or evisit may still work for this. Andrez Arango MOTIVE FLEET SUPERVISOR documented in this encounter Plan of Treatment Not on file documented as of this encounter Visit Diagnoses Not on filedocumented in this encounter Additional Health Concerns Assessment Noted Time PHQ-9 Depression Total Score: 23 019 9:13 AM CDT documented as of this encounter Care Teams Fire Operations Forester Relationship Specialty Start Date End Date Andrez Krause PA-C PCP - General Physician 2 Year Olds Preschool Teacher - Medical 10/09/15 05/29/21 Heaven Brunson PA-C [facility] [address] [place] [address] PCP - General Physician 2 Year Olds Preschool Teacher 05/30/21 Andrez Krause PA-C [address] [place] [address] Assigned PCP 09/13/15 06/20/22 Mona Tian MD [address] [place] [address] Assigned OBGYN Provider 08/03/20 Brett Torres [facility] [address] [place] [address] Assigned Behavioral Health Provider 07/14/21 01/02/23 Karen Galvan PA-C [address] [email or web address] 103 [place] [address] Assigned Sleep Provider 09/01/21 Marie Lawrence [facility] 5775 [facility] 200 [place], [place] [address] Assigned MTM Pharmacist 04/05/22 documented as of this encounter
--- OUTSIDE RECORDS SUMMARY | 2024-02-11 11:24 | XMS_ITS | Encounter Summary ---
Author Name Unknown Organization [facility] Address [address] [place] [address] Care Team Providers Care Driveway Sealer Name Role Phone Andrez Krause PA-C Primary Care Provider Andrez Krause PA-C Unavailable [phone] Mona Tian MD Unavailable [phone] Heaven Brunson PA-C Primary Care Provider Brett Torres MD Unavailable [phone] Karen Galvan PA-C Unavailable + [phone] Marie Lawrence [facility] Unavailable [phone] Encounter Details Date Type Department Care Team (Late st Contact Info) Description 07/13/2020 [facility] [address] [place] [address] [facility] Social History Tobacco Use Types Packs/Day Years Used Date Smoking Tobacco: Never Smokeless Tobacco: Never Alcohol Use Standard Drinks/Week Comments Yes 0 (1 standard drink = 0.6 oz pur e alcohol) Social, rare PHQ-2 Answer Date Recorded PHQ-2 Score 3 02/17/2019 Sex and Gender Information Value Date Recorded Sex Assigned at Female 11/04/2018 8:36 AM PROJECT MANAGER/TEAM COACH Gender Identity Female 11/04/2018 8:36 AM PROJECT MANAGER/TEAM COACH Sexual Orientation Straight 11/04/2018 8: 36 AM PROJECT MANAGER/TEAM COACH documented as of this encounter Plan of Treatment Not on file documented as of this encounter Visit Diagnoses Not on filedocumented in this encounter Additional Health Concerns Assessment Noted Time PHQ-9 Depression Total Score: 23 2 019 9:13 AM CDT documented as of this encounter Care Teams Driveway Sealer Relationship Specialty Start Date End Date Andrez Krause PA-C PCP - General Physician Switchboard Operator Supervisor - Medical 10/09/15 05/29/21 Heaven Brunson PA-C [facility] [address] [place] [address] PCP - General Physician Switchboard Operator Supervisor 05/30/21 Andrez Krause PA-C [address] [place] [address] Assigned PCP 09/13/15 06/20/22 Mona Tian MD [address] [place] [address] Assigned OBGYN Provider 08/03/20 Brett Torres [facility] [address] [facility] 255 [place], [place] [address] Assigned Behavioral Health Provider 07/14/21 01/02/23 Karen Galvan PA-C 6363 [facility] 103 [place] [address] Assigned Sleep Provider 09/01/21 Marie Lawrence [facility] 5775 [facility] 200 [place], [place] [address] Assigned MTM Pharmacist 04/05/22 documented as of this encounter
--- OUTSIDE RECORDS SUMMARY | 2024-02-11 11:24 | XMS_ITS | Encounter Summary ---
Author Name Unknown Organization [place] Address [address] [place] [address] Care Team Providers Care Regional Geodetic Advisor Name Role Phone Andrez Krause PA-C Primary Care Provider Andrez Krause PA-C Unavailable [phone] Andrez Krause PA-C Unavailable [phone] Mona Tian MD Unavailable [phone] Heaven Brunson PA-C Primary Care Provider Brett Torres MD Unavailable [phone] Karen Galvan PA-C Unavailable [phone] Marie Lawrence [facility] Unavailable [phone] Encounter Details Date Type Department Care Team (Late st Contact Info) Description 11/04/2017 MyC Medical Advice [address], [address] [place] [address] Marnie Mabry MA Social History Tobacco Use Types Packs/Day Years Used Date Smoking Tobacco: Never Smokeless Tobacco: Never Alcohol Use Standard Drinks/Week Comments Yes 0 (1 standard drink = 0.6 oz pur e alcohol) socially Sex and Gender Information Value Date Recorded Sex Assigned at Female 11/04/2018 8:36 AM BOAT HOIST OPERATOR HELPER Gender Identity Female 11/04/2018 8:36 AM BOAT HOIST OPERATOR HELPER Sexual Orientation Straight 11/04/2018 8: 36 AM BOAT HOIST OPERATOR HELPER documented as of this encounter Plan of Treatment Not on file documented as of this encounter Visit Diagnoses Not on filedocumented in this encounter Additional Health Concerns Assessment Noted Time PHQ-9 Depression Total Score: 19 018 9:18 AM BOAT HOIST OPERATOR HELPER documented as of this encounter Care Teams Regional Geodetic Advisor Relationship Specialty Start Date End Date Andrez Krause PA-C PCP - General Physician Advertising Associate - Medical 10/09/15 05/29/21 Andrez Karuse PA-C [address] [place] [address] PCP - Assigned PCP 09/13/15 12/14/18 Heaven Brunson PA-C [facility] [address] [place] [address] PCP - General Physician Advertising Associate 05/30/21 Andrez Krause PA-C [address] [place] [address] Assigned PCP 09/13/15 06/20/22 Mona Tian MD [address] [place] [address] Assigned OBGYN Provider 08/03/20 Brett Torres [facility] [address] [facility] [address] [place] [address] Assigned Behavioral Health Provider 07/14/21 01/02/23 Karen Galvan PA-C [address] [place] [address] [place] [address] Assigned Sleep Provider 09/01/21 Marie Lawrence, [facility] [place] [facility] 5775 [facility] 200 [place] [address] Assigned MTM Pharmacist 04/05/22 documented as of this encounter
--- OUTSIDE RECORDS SUMMARY | 2024-02-11 11:24 | XMS_ITS | Encounter Summary ---
Author Name Unknown Organization [facility] Address [address] [place] [address] Care Team Providers Care Billet Cutter Name Role Phone Andrez Krause PA-C Primary Care Provider Andrez Krause PA-C Unavailable [phone] Mona Tian MD Unavailable [phone] Heaven Brunson PA-C Primary Care Provider Brett Torres MD Unavailable [phone] Karen Galvan PA-C Unavailable [phone] Marie Lawrence [facility] Unavailable [phone] Reason for Visit * Reason Onset Date Comments Headache 04/12/2020 Encounter Details Date Type Department Care Team (Late st Contact Info) Description 04/12/2020 MyC Medical Advice [address], [address] [place] [address] Andrez Krause PA-C [address] [place] [address] Headache Social History Tobacco Use Types Packs/Day Years Used Date Smoking Tobacco: Never Smokeless Tobacco: Never Alcohol Use Standard Drinks/Week Comments Yes 0 (1 standard drink = 0.6 oz pur e alcohol) Social, rare PHQ-2 Answer Date Recorded PHQ-2 Score 3 02/17/2019 Sex and Gender Information Value Date Recorded Sex Assigned at Female 11/04/2018 8:36 AM CONTROL ROOM TECHNICIAN Gender Identity Female 11/04/2018 8:36 AM CONTROL ROOM TECHNICIAN Sexual Orientation Straight 11/04/2018 8: 36 AM CONTROL ROOM TECHNICIAN documented as of this encounter Miscellaneous Notes * Telephone Encounter - Bradford Grijalva MD - 04/13/2020 1:44 PM CDT RN OK to sign once pharmacy confirmed Bradford Grijalva MD * Telephone Encounter - Constantin Warren RN - 04/12/2020 10:25 AM CDT iMOSPHERE message sent to patient. Constantin Denise RN [...] documented as of this encounter Care Teams Billet Cutter Relationship Specialty Start Date End Date Andrez Krause PA-C PCP - General Physician Animated Cartoons Painter - Medical 10/09/15 05/29/21 Heaven Brunson PA-C [facility] [address] [address] PCP - General Physician Animated Cartoons Painter 05/30/21 Andrez Krause PA-C [address] [place] [address] Assigned PCP 09/13/15 06/20/22 Mona Tian MD [address] [place] [address] Assigned OBGYN Provider 08/03/20 Brett Torres [facility] [address] [facility] 255 [place], [place] [address] Assigned Behavioral Health Provider 07/14/21 01/02/23 Karen Galvan PA-C [address] [facility] 103 [place] [address] Assigned Sleep Provider 09/01/21 Marie Lawrence, [facility] 5775 [facility] 200 [place], [place] [address] Assigned MTM Pharmacist 04/05/22 documented as of this encounter
--- OUTSIDE RECORDS SUMMARY | 2024-02-11 11:24 | XMS_ITS | Encounter Summary ---
Author Name Unknown Organization [facility] Address [address] [place] [address] Care Team Providers Care Continuity Person Name Role Phone Andrez Krause PA-C Primary Care Provider Andrez Krause PA-C Unavailable [phone] Andrez Krause PA-C Unavailable [phone] Mona Tian MD Unavailable [phone] Heaven Brunson PA-C Primary Care Provider Brett Torres MD Unavailable [phone] Karen Galvan PA-C Unavailable + [phone] Marie Lawrence [facility] Unavailable [phone] Encounter Details Date Type Department Care Team (Late st Contact Info) Description 10/30/2017 MyC Medical Advice [address], [address] [place] [address] Geraldine Chavarria, RN Social History Tobacco Use Types Packs/Day Years Used Date Smoking Tobacco: Never Smokeless Tobacco: Never Alcohol Use Standard Drinks/Week Comments Yes 0 (1 standard drink = 0.6 oz pur e alcohol) socially Sex and Gender Information Value Date Recorded Sex Assigned at Female 11/04/2018 8:36 AM C PYTHON DEVELOPER Gender Identity Female 11/04/2018 8:36 AM C PYTHON DEVELOPER Sexual Orientation Straight 11/04/2018 8: 36 AM C PYTHON DEVELOPER documented as of this encounter Plan of Treatment Not on file documented as of this encounter Visit Diagnoses Not on filedocumented in this encounter Additional Health Concerns Assessment Noted Time PHQ-9 Depression Total Score: 19 018 9:18 AM C PYTHON DEVELOPER documented as of this encounter Care Teams Continuity Person Relationship Specialty Start Date End Date Andrez Krause PA-C PCP - General Physician Visual C Developer - Medical 10/09/15 05/29/21 Andrez Krause PA-C [address] [place] [address] PCP - Assigned PCP 09/13/15 12/14/18 Heaven Brunson PA-C [facility] [address] [place] [address] PCP - General Physician Visual C Developer 05/30/21 Andrez Krause PA-C [address] [place] [address] Assigned PCP 09/13/15 06/20/22 Mona Tian MD [address] [place] [address] Assigned OBGYN Provider 08/03/20 Brett Torres [facility] [address] [facility] 255 [place] [address] Assigned Behavioral Health Provider 07/14/21 01/02/23 Karen Galvan PA-C [address] [place] [address] [place] [address] Assigned Sleep Provider 09/01/21 Marie Lawrence, [facility] 5775 [facility] 200 [place] [address] Assigned MTM Pharmacist 04/05/22 documented as of this encounter
--- OUTSIDE RECORDS SUMMARY | 2024-02-11 11:24 | XMS_ITS | Encounter Summary ---
Author Name Unknown Organization [place] Address [address] [place] [address] Care Team Providers Care Crew Supervisor Name Role Phone Andrez Krause PA-C Primary Care Provider Andrez Krause PA-C Unavailable + [phone] Andrez Krause PA-C Unavailable + [phone] Mona Tian MD Unavailable [phone] Heaven Brunson PA-C Primary Care Provider Brett Torres MD Unavailable [phone] Karen Galvan PA-C Unavailable + [phone] Marie Lawrence [facility] Unavailable [phone] Reason for Visit * Reason Onset Date Comments Forms 12/13/2018 Unemployment Encounter Details Date Type Department Care Team (Late st Contact Info) Description 12/13/2018 MyC Medical Advice [address], [address] [place] [address] Andrez Krause PA-C [address] [place] [address] Forms (Unemployment) Social History Tobacco Use Types Packs/Day Years Used Date Smoking Tobacco: Never Smokeless Tobacco: Never Alcohol Use Standard Drinks/Week Comments Yes 0 (1 standard drink = 0.6 oz pur e alcohol) Social, rare PHQ-2 Answer Date Recorded PHQ-2 Score 6 10/19/2018 Sex and Gender Information Value Date Recorded Sex Assigned at Female 11/04/2018 8:36 AM CREDIT ANALYST Gender Identity Female 11/04/2018 8:36 AM CREDIT ANALYST Sexual Orientation Straight 11/04/2018 8: 36 AM CREDIT ANALYST documented as of this encounter Miscellaneous Notes * Telephone Encounter - Andrez Krause PA-C - 12/16/2018 12:56 PM CREDIT ANALYST OK, first dose is to do 240mg followed by 120mg monthly after that. I'll do the first Rx now. Thanks! Andrez IT ANALYST * Telephone Encounter - Nalini Conte RN - 12/16/2018 12:06 PM CST Please approve rx for EMGALITY as patient is willing to give it a try. She will pickle cutter the card to you have provider for the 12 month free. Nalini Conte RN IT ANALYST * Telephone Encounter - Nalini Conte RN - 12/16/2018 11:28 AM CST Form faxed to [phone]. Copy placed in abstracting. Original in my in-basket waiting for patient to let us know if she would like to pickle cutter copy of have us mail it to her. I also have the Emgality Savings Card for patient in my in-basket if patient is interested in it. Waiting for patient to let us know about this as well. Nalini Conte RN IT ANALYST * Telephone Encounter - Andrez Krause PA-C - 12/15/2018 2:39 PM CREDIT ANALYST OK, Ill get it signed. Andrez IT ANALYST * Telephone Encounter - Nalini Conte RN - 12/15/2018 1:20 PM CST This message was not routed to you as there was already a phone message created for the form. This is NOT a permanent disability from what I can see. Nalini Conte, RN IT ANALYST * Telephone Encounter - Andrez Krause PA-C - 12/15/2018 12:52 PM CREDIT ANALYST Hey! I see this in my actual basket now, but was it routed to me? I'm not signing for any permamentdisability am I? Just for dates gone at this point? Just wondering when looking at the form.... I can sign it otherwise and she can pick it up LYSSA. Andrez IT ANALYST documented in this encounter Plan of Treatment Not on file documented as of this encounter Visit Diagnoses Diagnosis Migraine without aura and without status migrainosus, not intractable- Primary Migraine without aura, without mention of intractable migraine without mention of status migrainosus documented in this encounter Additional Health Concerns Assessment Noted Time PHQ-9 Depression Total Score: 019 5:05 PM CREDIT ANALYST documented as of this encounter Care Teams Crew Supervisor Relationship Specialty Start Date End Date Andrez Krause PA-C PCP - General Physician Set Up Mechanic Coating Machines - Medical 10/09/15 05/29/21 Andrez Krause [place] [address] [place] [address] PCP - Assigned PCP 09/13/15 12/14/18 Heaven Brunson PA-C [facility]LY NAMED [facility] [address] [place] [address] PCP - General Physician Set Up Mechanic Coating Machines 05/30/21 Andrez Krause [place] [address] [place] [address] Assigned PCP 09/13/15 06/20/22 Mona Tian MD [address] [place] [address] Assigned OBGYN Provider 08/03/20 Brett Torres [facility] [address] [facility] [address] [place], [place] [id number] Assigned Behavioral Health Provider 07/14/21 01/02/23 Karen Galvan PA-C [address] [facility] 103 [place] [address] Assigned Sleep Provider 09/01/21 Maire Lawrence, [facility] 5775 [facility] 200 [place] [address] Assigned MTM Pharmacist 04/05/22 documented as of this encounter
--- OUTSIDE RECORDS SUMMARY | 2024-02-11 11:24 | XMS_ITS | Encounter Summary ---
Author Name Unknown Organization [place] Address [address] [place] [address]. [place] [address] Care Team Providers Care Divisional Merchandising Manager Name Role Phone Andrez Krause PA-C Primary Care Provider Andrez Krause PA-C Unavailable + [phone] Andrez Krause PA-C Unavailable + [phone] Mona Tian MD Unavailable [phone] Heavne Brunson PA-C Primary Care Provider Brett Torres MD Unavailable [phone] Karen Galvan PA-C Unavailable [phone] Marie Lawrence [facility] Unavailable [phone] Reason for Referral * Consultation - Closed Specialty Diagnoses / Procedures Referred By Andie t Referred To Contact Diagnoses Migraine without aura and without status migrainosus, not intractable Andrez Krause PA-C [address] [place] [address] [facility] [place] [address] Referral ID Status Reason Start Date Expiration Date Visits Re quested Visits Authorized [id number] Closed 11/22/2018 11/22/2019 1 1 Comments Your provider has referred you for the following: Consult at [facility]: [facility] [email or web address] Please be aware that coverage of these services is subject to the terms and limitations of your health insurance plan. Call member services at your health plan with any benefit or coverage questions. Please bring the following with you to your appointment: (1) Any X-Rays, CTs or MRIs which have been performed. Contact the facility where they were done to arrange for miner pick prior to your scheduled appointment. (2) List of current medications (3) This referral request (4) Any documents/labs given to you for this referral WELDER Reason for Visit * Reason Onset Date Comments Patient/info Update 11/11/2018 Prior auth f or Aimovig Encounter Details Date Type Department Care Team (Late st Contact Info) Description 11/11/2018 [facility] [address], [address] [place] [address] Andrez Krause PA-C [address] [place] [address] Patient/info Update (Prior auth for Aimovig) Social History Tobacco Use Types Packs/Day Years Used Date Smoking Tobacco: Never Smokeless Tobacco: Never Alcohol Use Standard Drinks/Week Comments Yes 0 (1 standard drink = 0.6 oz pur e alcohol) Social, rare PHQ-2 Answer Date Recorded PHQ-2 Score 6 10/19/2018 Sex and Gender Information Value Date Recorded Sex Assigned at Female 11/04/2018 8:36 AM RIG WELDER Gender Identity Female 11/04/2018 8:36 AM RIG WELDER Sexual Orientation Straight 11/04/2018 8: 36 AM RIG WELDER documented as of this encounter Miscellaneous Notes * Telephone Encounter - Andrez Krause PA-C - 11/22/2018 4:57 PM RIG WELDER Not sure of her network or where she has been before but will refer where I usually do. Please callher with info. Andrez Arango WELDER * Telephone Encounter - Nalini Conte RN [...] sent to patient. Nalini Conte RN ?? WELDER documented in this encounter Plan of Treatment [...] Depression Total Score: 21 019 5:05 PM RIG WELDER documented as of this encounter Care Teams Divisional Merchandising Manager Relationship Specialty Start Date End Date Andrez Krause PA-C PCP - General Physician Linen Keeper - Medical 10/09/15 05/29/21 Andrez Krause PA-C [address] [place] [address] PCP - Assigned PCP 09/13/15 12/14/18 Heaven Brunson PA-C [facility] [address] [place] [address] PCP - General Physician Linen Keeper 05/30/21 Andrez Krause PA-C [address] [place] [address] Assigned PCP 09/13/15 06/20/22 Mona Tian MD [address] [place] [address] Assigned OBGYN Provider 08/03/20 Brett Torres [facility] [address] [facility] 255 [place], [place] [id number] Assigned Behavioral Health Provider 07/14/21 01/02/23 Karen Galvan PA-C [address] [facility] 103 [place] [address] Assigned Sleep Provider 09/01/21 Marie Lawrence, [facility] 5775 [facility] 200 [place], [place] [id number] Assigned MTM Pharmacist 04/05/22 documented as of this encounter
--- OUTSIDE RECORDS SUMMARY | 2024-02-11 11:24 | XMS_ITS | Encounter Summary ---
Author Name Unknown Organization [place] Address [address] [place] [address]. [place] [address] Care Team Providers Care Reinsurance Analyst Name Role Phone Andrez Krause PA-C Primary Care Provider Andrez Krause PA-C Unavailable +[phone] Mona Tian MD Unavailable [phone] Heaven Brunson PA-C Primary Care Provider Brett Torres MD Unavailable [phone] Karen Galvan PA-C Unavailable + [phone] Marie Lawrence [facility] Unavailable [phone] Encounter Details Date Type Department Care Team (Late st Contact Info) Description 05/22/2019 MyC Medical Advice [address], [address] [place] [address] Andrez Krause PA-C [address] [place] [address] Social History Tobacco Use Types Packs/Day Years Used Date Smoking Tobacco: Never Smokeless Tobacco: Never Alcohol Use Standard Drinks/Week Comments Yes 0 (1 standard drink = 0.6 oz pur e alcohol) Social, rare PHQ-2 Answer Date Recorded PHQ-2 Score 3 02/17/2019 Sex and Gender Information Value Date Recorded Sex Assigned at Female 11/04/2018 8:36 AM SEWING MACHINE OPERATOR FLOORPERSON Gender Identity Female 11/04/2018 8:36 AM SEWING MACHINE OPERATOR FLOORPERSON Sexual Orientation Straight 11/04/2018 8: 36 AM SEWING MACHINE OPERATOR FLOORPERSON documented as of this encounter Plan of Treatment Not on file documented as of this encounter Visit Diagnoses Not on filedocumented in this encounter Additional Health Concerns Assessment Noted Time PHQ-9 Depression Total Score: 23 019 9:13 AM CDT documented as of this encounter Care Teams Reinsurance Analyst Relationship Specialty Start Date End Date Andrez Krause PA-C PCP - General Physician Washing Tub Operator - Medical 10/09/15 05/29/21 Heaven Brunson PA-C [facility] [address] [place] [address] PCP - General Physician Washing Tub Operator 05/30/21 Andrez Krause PA-C [address] [place] [address] Assigned PCP 09/13/15 06/20/22 Mona Tian MD [address] [place], [place] [address] Assigned OBGYN Provider 08/03/20 Brett Torres [facility] [address] [facility] 255 [place], [place] [address] Assigned Behavioral Health Provider 07/14/21 01/02/23 Karen Galvan PA-C 6363 [facility] 103 [place], [place] [address] Assigned Sleep Provider 09/01/21 Marie Lawrence [facility] 5775 [facility] 200 [place] [address] Assigned MTM Pharmacist 04/05/22 documented as of this encounter
--- OUTSIDE RECORDS SUMMARY | 2024-02-11 11:24 | XMS_ITS | Encounter Summary ---
Author Name Unknown Organization [place] Address [address] [place] [address] Care Team Providers Care Manager Cancer Name Role Phone Andrez Krause PA-C Primary Care Provider Andrez Krause PA-C Unavailable + [phone] Andrez Krause PA-C Unavailable [phone] Mona Tian MD Unavailable [phone] Heaven Brunson PA-C Primary Care Provider Brett Torres MD Unavailable [phone] Karen Galvan PA-C Unavailable [phone] Marie Lawrence [facility] Unavailable [phone] Reason for Visit * Reason Onset Date Comments Refill Request 11/02/2018 erenumab-aooe (A IMOVIG) 70 MG/ML injection Encounter Details Date Type Department Care Team (Late st Contact Info) Description 11/02/2018 MyC Refill [address], [address] [place] [address] Andrez Krause PA-C [address] [place] [address] Refill Request (erenumab-aooe (AIMOVIG) 70... Social History Tobacco Use Types Packs/Day Years Used Date Smoking Tobacco: Never Smokeless Tobacco: Never Alcohol Use Standard Drinks/Week Comments Yes 0 (1 standard drink = 0.6 oz pur e alcohol) Social, rare PHQ-2 Answer Date Recorded PHQ-2 Score 6 10/19/2018 Sex and Gender Information Value Date Recorded Sex Assigned at Female 11/04/2018 8:36 AM MD OPHTHALMOLOGIST Gender Identity Female 11/04/2018 8:36 AM MD OPHTHALMOLOGIST Sexual Orientation Straight 11/04/2018 8: 36 AM MD OPHTHALMOLOGIST documented as of this encounter Miscellaneous Notes * Telephone Encounter - Geraldine Chavarria RN - 11/02/2018 5:24 PM CST Routing refill request to provider for review/approval because: Drug not on the [facility] refill protocol Geraldine Chavarria RN, BS Clinical Nurse Triage. OPHTHALMOLOGIST * Telephone Encounter - Denia Reddy - [...] 01/25/2019) for Med Check. Future Office Visit: OPHTHALMOLOGIST documented in this encounter Plan of Treatment [...] as of this encounter Care Teams Manager Cancer Relationship Specialty Start Date End Date Andrez Krause PA-C PCP - General Physician Principal Automation Engineer - Medical 10/09/15 05/29/21 Andrez Krause PA-C [address] [place] [address] PCP - Assigned PCP 09/13/15 12/14/18 Heaven Brunson PA-C [facility] [address] [place] [address] PCP - General Physician Principal Automation Engineer 05/30/21 Andrez Krause PA-C [address] [place] [address] Assigned PCP 09/13/15 06/20/22 Mona Tian MD [address] [place], [place] [address] Assigned OBGYN Provider 08/03/20 Brett Torres [facility] [address] [facility] 255 [place], [place] [address] Assigned Behavioral Health Provider 07/14/21 01/02/23 Karen Galvan PA-C [address] [facility] 103 [place], [place] [address] Assigned Sleep Provider 09/01/21 Marie Lawrence, [facility] 5775 [facility] 200 [place] [address] Assigned MTM Pharmacist 04/05/22 documented as of this encounter
--- OUTSIDE RECORDS SUMMARY | 2024-02-11 11:24 | XMS_ITS | Encounter Summary ---
Author Name Unknown Organization [place] Address [address] [place] [address] Care Team Providers Care Nurse Outreach Case Manager Name Role Phone Andrez Krause PA-C Primary Care Provider Andrez Krause PA-C Unavailable + [phone] Andrez Krause PA-C Unavailable + [phone] Mona Tian MD Unavailable [phone] Heaven Brunson PA-C Primary Care Provider Brett Torres MD Unavailable [phone] Karen Galvan PA-C Unavailable + [phone] Marie Lawrence [facility] Unavailable [phone] Reason for Visit * Reason Onset Date Comments Headache 11/30/2018 update Encounter Details Date Type Department Care Team (Late st Contact Info) Description 11/30/2018 MyC Medical Advice [address], [address] [place] [address] Andrez Krause PA-C [address] [place] [address] Headache (update) Social History Tobacco Use Types Packs/Day Years Used Date Smoking Tobacco: Never Smokeless Tobacco: Never Alcohol Use Standard Drinks/Week Comments Yes 0 (1 standard drink = 0.6 oz pur e alcohol) Social, rare PHQ-2 Answer Date Recorded PHQ-2 Score 6 10/19/2018 Sex and Gender Information Value Date Recorded Sex Assigned at Female 11/04/2018 8:36 AM HEAVY LINE TECHNICIAN Gender Identity Female 11/04/2018 8:36 AM HEAVY LINE TECHNICIAN Sexual Orientation Straight 11/04/2018 8: 36 AM HEAVY LINE TECHNICIAN documented as of this encounter Plan of Treatment Not on file documented as of this encounter Visit Diagnoses Diagnosis Migraine without aura and without status migrainosus, not intractable- Primary Migraine without aura, without mention of intractable migraine without mention of status migrainosus documented in this encounter Additional Health Concerns Assessment Noted Time PHQ-9 Depression Total Score: 019 5:05 PM HEAVY LINE TECHNICIAN documented as of this encounter Care Teams Nurse Outreach Case Manager Relationship Specialty Start Date End Date Andrez Krause PA-C PCP - General Physician Documentation Consultant - Medical 10/09/15 05/29/21 Andrez Krause PA-C [address] [place] [address] PCP - Assigned PCP 09/13/15 12/14/18 Heaven Brunson PA-C [facility] [address] [place] [address] PCP - General Physician Documentation Consultant 05/30/21 Andrez Krause PA-C [address] [place] [address] Assigned PCP 09/13/15 06/20/22 Mona Tian MD [address] [place], [place] [address] Assigned OBGYN Provider 08/03/20 Brett Torres [facility] [address] [place] [address] Assigned Behavioral Health Provider 07/14/21 01/02/23 Karen Galvan PA-C [address] [facility] 103 [place] [address] Assigned Sleep Provider 09/01/21 Marie Lawrence, [facility] 5775 [facility] 200 [place], [place] [address] Assigned MTM Pharmacist 04/05/22 documented as of this encounter
--- OUTSIDE RECORDS SUMMARY | 2024-02-11 11:24 | XMS_ITS | Encounter Summary ---
Author Name Unknown Organization [place] Address [address] [place] [address] Care Team Providers Care Hiv Cts Specialist Name Role Phone Andrez Krause PA-C Primary Care Provider Andrez Krause PA-C Unavailable [phone] Mona Tian MD Unavailable [phone] Heaven Brunson PA-C Primary Care Provider Brett Torres MD Unavailable [phone] Karen Galvan PA-C Unavailable + [phone] Marie Lawrence [facility] Unavailable [phone] Reason for Visit * Reason Onset Date Comments Medication Refill 04/06/2019 venlafaxine (E FFEXOR-XR) 75 MG 24 hr capsule Encounter Details Date Type Department Care Team (Late st Contact Info) Description 04/05/[address], [address] [place] [address] Andrez Krause PA-C [address] [place] [address] Medication Refill (venlafaxine (EFFEXOR-XR) 75 [...] Sex Assigned at Female 11/04/2018 8:36 AM METALLURGICAL LABORATORY ASSISTANT Gender Identity Female 11/04/2018 8:36 AM METALLURGICAL LABORATORY ASSISTANT Sexual Orientation Straight 11/04/2018 8: 36 AM METALLURGICAL LABORATORY ASSISTANT documented as of this encounter Miscellaneous [...] documented as of this encounter Care Teams Hiv Cts Specialist Relationship Specialty Start Date End Date Andrez Krause PA-C PCP - General Physician Worm Packer - Medical 10/09/15 05/29/21 Heaven Brunson PA-C [facility] [address] [place] [address] PCP - General Physician Worm Packer 05/30/21 Andrez Krause PA-C [address] [place] [address] Assigned PCP 09/13/15 06/20/22 Mona Tian MD [address] [place], [place] [address] Assigned OBGYN Provider 08/03/20 Brett Torres [facility] [address] [facility] 255 [place] [address] Assigned Behavioral Health Provider 07/14/21 01/02/23 Karen Galvan PA-C [address] [facility] 103 [place] [address] Assigned Sleep Provider 09/01/21 Marie Lawrence, [facility] 5775 [facility] 200 [place] [address] Assigned MTM Pharmacist 04/05/22 documented as of this encounter
--- OUTSIDE RECORDS SUMMARY | 2024-02-11 11:24 | XMS_ITS | Encounter Summary ---
Author Name Unknown Organization [place] Address [address] [place] [address] Care Team Providers Care Spiral Machine Operator Name Role Phone Andrez Krause PA-C Primary Care Provider Andrez Krause PA-C Unavailable [phone] Mona Tian MD Unavailable [phone] Heaven Brunson PA-C Primary Care Provider Brett Torres MD Unavailable [phone] Karen Galvan PA-C Unavailable [phone] Marie Lawrence [facility] Unavailable [phone] Reason for Visit * Reason Onset Date Comments Refill Request 01/10/2019 Emgality Encounter Details Date Type Department Care Team (Late st Contact Info) Description 01/10/2019 MyC Medical Advice [address], [address] [place] [address] Andrez Krause PA-C [address] [place] [address] Refill Request (Emgality) Social History Tobacco Use Types Packs/Day Years Used Date Smoking Tobacco: Never Smokeless Tobacco: Never Alcohol Use Standard Drinks/Week Comments Yes 0 (1 standard drink = 0.6 oz pur e alcohol) Social, rare PHQ-2 Answer Date Recorded PHQ-2 Score 6 10/19/2018 Sex and Gender Information Value Date Recorded Sex Assigned at Female 11/04/2018 8:36 AM LINE PAINTING MACHINE OPERATOR Gender Identity Female 11/04/2018 8:36 AM LINE PAINTING MACHINE OPERATOR Sexual Orientation Straight 11/04/2018 8: 36 AM LINE PAINTING MACHINE OPERATOR documented as of this encounter Miscellaneous [...] (EMGALITY) 120 MG/ML injection Class: E-Prescribe Order: [id number] E-Prescribing Status: Receipt confirmed by pharmacy (12/16/2018 12:57 PM LINE PAINTING MACHINE OPERATOR) Last OV 2.14.19 for migraine, received Toradol inj and prednisone Andrez Krause PA-C Physician Glue Mounter Operator Signed Creation Time: 12/16/2018 12:56 PM OK, first dose is to do 240mg followed by 120mg monthly after that. I'll do the first Rx now. ?? Thanks! Nalini Bunn, RN Registered Nurse Signed Creation Time: 12/16/2018 12:06 PM Please approve rx for EMGALITY as patient is willing to give it a try. She will cone picker the card to you have provider for the 12 month free. ?? Nalini Conte RN LM for pt to schedule appt with provider to review medication Geraldine Chavarria RN, BS Clinical Nurse Triage. * Telephone Encounter - Jeanne Phillips MD - 01/10/2019 9:35 AM CDT She has not see the provider for this rx. She ordered via [facility] about 1 month ago. [facility]. Thank you * Telephone Encounter - Nalini Conte RN - 01/10/2019 8:52 AM CDT Emgality 120mg/ml Last Written Prescription Date: 12/16/2018 Last Fill Quantity: 2ml, # refills: 0 Last Office Visit: 11/25/2018 Future Office visit: Routing refill request to provider for review/approval because: Drug not on the [facility] refill protocol or controlled substance Nalini Conte [...] PHQ-9 Depression Total Score: 019 5:05 PM LINE PAINTING MACHINE OPERATOR documented as of this encounter Care Teams Spiral Machine Operator Relationship Specialty Start Date End Date Andrez Krause PA-C PCP - General Physician Glue Mounter Operator - Medical 10/09/15 05/29/21 Heaven Brunson PA-C [facility] [address] [place] [address] PCP - General Physician Glue Mounter Operator 05/30/21 Andrez Krause PA-C [address] [place] [address] Assigned PCP 09/13/15 06/20/22 Mona Tian MD [address] [place], [place] [address] Assigned OBGYN Provider 08/03/20 Brett Torres [facility] [address] [facility] 255 [place] [address] Assigned Behavioral Health Provider 07/14/21 01/02/23 Karen Galvan PA-C [address] [facility] 103 [place], [place] [address] Assigned Sleep Provider 09/01/21 Marie Lawrence, [facility] 5775 [facility] 200 [place] [address] Assigned MTM Pharmacist 04/05/22 documented as of this encounter
--- OUTSIDE RECORDS SUMMARY | 2024-02-11 11:25 | XMS_ITS | Encounter Summary ---
Author Name Unknown Organization [place] Address [address] [place] [address] Care Team Providers Care Manager Non Profit Name Role Phone Andrez Krause PA-C Primary Care Provider Andrez Krause PA-C Unavailable + [phone] Andrez Krause PA-C Unavailable +[phone] Mona Tian MD Unavailable +[phone] Heaven Brunson PA-C Primary Care Provider Brett Torres MD Unavailable +[phone] Karen Galvan PA-C Unavailable + [phone] Marie Lawrence [facility] Unavailable +[phone] Reason for Visit * Reason Onset Date Comments Refill Request 07/01/2017 Methylphenidate Encounter Details Date Type Department Care Team (Late st Contact Info) Description 07/01/2017 MyC Medical Advice [address], [address] [place] [address] Andrez Krause PA-C [address] [place] [address] Refill Request (Methylphenidate) Social History Tobacco Use Types Packs/Day Years Used Date Smoking Tobacco: Never Smokeless Tobacco: Never Alcohol Use Standard Drinks/Week Comments Yes 0 (1 standard drink = 0.6 oz pur e alcohol) socially Sex and Gender Information Value Date Recorded Sex Assigned at Female 11/04/2018 8:36 AM ELECTRIC MOTOR REPAIRMAN Gender Identity Female 11/04/2018 8:36 AM ELECTRIC MOTOR REPAIRMAN Sexual Orientation Straight 11/04/2018 8: 36 AM ELECTRIC MOTOR REPAIRMAN documented as of this encounter Miscellaneous Notes [...] CDT Cotyt Amanuel with Andrez Krause PA-C [facility] [address] [place] [address] Routing refill request to provider for review/approval because: Drug not on the [facility], [facility] or [facility] refill protocol or controlled substance. NUTRITION SERVICES WORKER checked 07/01/2017: 05/19/2017 GABAPENTIN 300 MG CAPSULE [...] as of this encounter Care Teams Manager Non Profit Relationship Specialty Start Date End Date Andrez Krause PA-C PCP - General Physician Dough Cutting Machine Operator - Medical 10/09/15 05/29/21 Andrez Krause PA-C [address] [place] [address] PCP - Assigned PCP 09/13/15 12/14/18 Heaven Brunson PA-C [facility] [address] [place], [place] [address] PCP - General Physician Dough Cutting Machine Operator 05/30/21 Andrez Krause PA-C [address] [place] [address] Assigned PCP 09/13/15 06/20/22 Mona Tian MD [address] [place] [address] Assigned OBGYN Provider 08/03/20 Brett Torres [facility] 66764 [facility] 255 [place], [place] [address] Assigned Behavioral Health Provider 07/14/21 01/02/23 Karen Galvan PA-C [address] [facility] 103 [place] [address] Assigned Sleep Provider 09/01/21 Marie Lawrence, [facility] 5775 [facility] 200 [place], [place] [address] Assigned MTM Pharmacist 04/05/22 documented as of this encounter
--- OUTSIDE RECORDS SUMMARY | 2024-02-11 11:25 | XMS_ITS | Encounter Summary ---
Author Name Unknown Organization [place] Address [address] [place] [address] Care Team Providers Care Jewelry Cutter Name Role Phone Andrez Krause PA-C Primary Care Provider Andrez Krause PA-C Unavailable +[phone] Andrez Krause PA-C Unavailable +[phone] Mona Tian MD Unavailable +[phone] Heaven Brunson PA-C Primary Care Provider Brett Torres MD Unavailable +[phone] Karen Galvan PA-C Unavailable +[phone] Marie Lawrence [facility] Unavailable +[phone] Encounter Details Date Type Department Care Team (Latest Contact Info) Description 02/19/2017 Historic Results Social History Tobacco Use Types Packs/Day Years Used Date Smoking Tobacco: Never Smokeless Tobacco: Never Alcohol Use Standard Drinks/Week Comments Yes 0 (1 standard drink = 0.6 oz pur e alcohol) socially Sex and Gender Information Value Date Recorded Sex Assigned at Female 11/04/2018 8:36 AM ORAL SURGERY ASSISTANT Gender Identity Female 11/04/2018 8:36 AM ORAL SURGERY ASSISTANT Sexual Orientation Straight 11/04/2018 8: 36 AM ORAL SURGERY ASSISTANT documented as of this encounter Plan of Treatment Not on file documented as of this encounter Visit Diagnoses Not on filedocumented in this encounter Additional Health Concerns Assessment Noted Time PHQ-9 Depression Total Score: 11 017 7:20 AM CDT documented as of this encounter Care Teams Jewelry Cutter Relationship Specialty Start Date End Date Andrez Krause PA-C PCP - General Physician General Internal Medicine Doctor - Medical 10/09/15 05/29/21 Andrez Krause PA-C [address] [place] [address] PCP - Assigned PCP 09/13/15 12/14/18 Heaven Brunson PA-C [facility] [address] [place], [place] [address] PCP - General Physician General Internal Medicine Doctor 05/30/21 Andrez Krause PA-C [address] [facility] [place] [address] Assigned PCP 09/13/15 06/20/22 Mona Tian MD [address] [place], [place] [address] Assigned OBGYN Provider 08/03/20 Brett Torres [facility] [address] [facility] 255 [place], [place] [id number] Assigned Behavioral Health Provider 07/14/21 01/02/23 Karen Galvan PA-C [address] [facility] 103 [place], [place] [address] Assigned Sleep Provider 09/01/21 Marie Lawrence, [facility] 5775 [facility] 200 [place], [place] [id number] Assigned MTM Pharmacist 04/05/22 documented as of this encounter
--- OUTSIDE RECORDS SUMMARY | 2024-02-11 11:25 | XMS_ITS | Encounter Summary ---
Author Name Unknown Organization [place] Address [address] [place] [address] Care Team Providers Care Manual Tester Name Role Phone Andrez Krause PA-C Primary Care Provider Andrez Krause PA-C Unavailable +[phone] Andrez Krause PA-C Unavailable +[phone] Mona Tian MD Unavailable [phone] Heaven Brunson PA-C Primary Care Provider Brett Torres MD Unavailable +[phone] Karen Galvan PA-C Unavailable + [phone] Marie Lawrence [facility] Unavailable +[phone] Encounter Details Date Type Department Care Team (Late st Contact Info) Description 04/17/2017 MyC Medical Advice [address], [address] [place] [address] Nalini Conte RN Social History Tobacco Use Types Packs/Day Years Used Date Smoking Tobacco: Never Smokeless Tobacco: Never Alcohol Use Standard Drinks/Week Comments Yes 0 (1 standard drink = 0.6 oz pur e alcohol) socially Sex and Gender Information Value Date Recorded Sex Assigned at Female 11/04/2018 8:36 AM MANAGER BILINGUAL Gender Identity Female 11/04/2018 8:36 AM MANAGER BILINGUAL Sexual Orientation Straight 11/04/2018 8: 36 AM MANAGER BILINGUAL documented as of this encounter Plan of Treatment Not on file documented as of this encounter Visit Diagnoses Not on filedocumented in this encounter Additional Health Concerns Assessment Noted Time PHQ-9 Depression Total Score: 11 017 7:20 AM CDT documented as of this encounter Care Teams Manual Tester Relationship Specialty Start Date End Date Andrez Krause PA-C PCP - General Physician Assistant Pressman - Medical 10/09/15 05/29/21 Andrez Krause PA-C [address] [place] [address] PCP - Assigned PCP 09/13/15 12/14/18 Heaven Brunson PA-C [facility] [address] [place] [address] PCP - General Physician Assistant Pressman 05/30/21 Andrez Krause PA-C [address] [place] [address] Assigned PCP 09/13/15 06/20/22 Mona Tian MD [address] [place] [address] Assigned OBGYN Provider 08/03/20 Brett Torres [facility] [address] [facility] 255 [place] [address] Assigned Behavioral Health Provider 07/14/21 01/02/23 Karen Galvan PA-C [address] [place] [address] Assigned Sleep Provider 09/01/21 Marie Lawrence, [facility] 5775 [facility] 200 [place] [address] Assigned MTM Pharmacist 04/05/22 documented as of this encounter
--- OUTSIDE RECORDS SUMMARY | 2024-02-11 11:25 | XMS_ITS | Encounter Summary ---
Author Name Unknown Organization [place] Address [address] [place] [address] Care Team Providers Care Tank Pumper Panelboard Name Role Phone Andrez Krause PA-C Primary Care Provider Andrez Krause PA-C Unavailable + [phone] Andrez Krause PA-C Unavailable + [phone] Mona Tian MD Unavailable [phone] Heaven Brunson PA-C Primary Care Provider Brett Torres MD Unavailable [phone] Karen Galvan PA-C Unavailable +[phone] Marie Lawrence [facility] Unavailable +[phone] Reason for Visit * Reason Onset Date Comments Refill Request 12/11/2015 Zoloft, Imitrex Encounter Details Date Type Department Care Team (Late st Contact Info) Description 12/11/2015 MyC Refill [address], [address] [place] [address] Andrez Krause PA-C [address] [place] [address] Refill Request (Zoloft, Imitrex) Social History Tobacco Use Types Packs/Day Years Used Date Smoking Tobacco: Never Alcohol Use Standard Drinks/Week Comments Yes 0 (1 standard drink = 0.6 oz pur e alcohol) Sex and Gender Information Value Date Recorded Sex Assigned at Female 11/04/2018 8:36 AM CHEESE WRAPPER Gender Identity Female 11/04/2018 8:36 AM CHEESE WRAPPER Sexual Orientation Straight 11/04/2018 8: 36 AM CHEESE WRAPPER documented as of this encounter Miscellaneous Notes * Telephone Encounter - Nalini Conte RN - 12/11/2015 10:43 AM CST Rx's already filled 11/23/2015 at [facility]. Nalini Conte RN SE WRAPPER * Telephone Encounter - Nalini Conte RN - 12/11/2015 10:43 AM CSTMessage from MyChart: Original authorizing provider: LUIS ANTONIO Molina would like a refill of the following medications: sertraline (ZOLOFT) 50 MG tablet [Andrez Krause PA-C] SUMAtriptan (IMITREX) 100 MG tablet [Andrez Krause PA-C] Preferred pharmacy: [id number] - [place], [place] - [address] Comment: SE WRAPPER documented in this encounter Plan of Treatment [...] Total Score: 7 11/24/19 16 8:21 AM CHEESE WRAPPER documented as of this encounter Care Teams Tank Pumper Panelboard Relationship Specialty Start Date End Date Andrez Krause PA-C PCP - General Physician Search Optimization Analyst - Medical 10/09/15 05/29/21 Andrez Krause PA-C [address] [facility] [place] [address] PCP - Assigned PCP 09/13/15 12/14/18 Heaven Brunson PA-C [facility] [address] [place] [address] PCP - General Physician Search Optimization Analyst 05/30/21 Andrez Krause PA-C [address] [place] [address] Assigned PCP 09/13/15 06/20/22 Mona Tian MD [address] [place], [place] [address] Assigned OBGYN Provider 08/03/20 Brett Torres [facility] [address] [facility] 255 [place], [place] [address] Assigned Behavioral Health Provider 07/14/21 01/02/23 Karen Galvan PA-C [address] [facility] 103 [place], [place] [address] Assigned Sleep Provider 09/01/21 Marie Lawrence [facility] 5775 [facility] 200 [place], [place] [address] Assigned MTM Pharmacist 04/05/22 documented as of this encounter
--- OUTSIDE RECORDS SUMMARY | 2024-02-11 11:25 | XMS_ITS | Encounter Summary ---
Author Name Unknown Organization [place] Address [address] [place] [address] Care Team Providers Care Clinic Assistant Name Role Phone Andrez Krause PA-C Primary Care Provider Andrez Krause PA-C Unavailable +[phone] Andrez Krause PA-C Unavailable +[phone] Mona Tian MD Unavailable [phone] Heaven Brunson PA-C Primary Care Provider Brett Torres MD Unavailable [phone] Karen Galvan PA-C Unavailable + [phone] Marie Lawrence [facility] Unavailable +[phone] Encounter Details Date Type Department Care Team (Late st Contact Info) Description 08/25/2017 MyC Medical Advice [address], [address] [place] [address] Nalini Conte RN Social History Tobacco Use Types Packs/Day Years Used Date Smoking Tobacco: Never Smokeless Tobacco: Never Alcohol Use Standard Drinks/Week Comments Yes 0 (1 standard drink = 0.6 oz pur e alcohol) socially Sex and Gender Information Value Date Recorded Sex Assigned at Female 11/04/2018 8:36 AM SYSTEM ENGINEER Gender Identity Female 11/04/2018 8:36 AM SYSTEM ENGINEER Sexual Orientation Straight 11/04/2018 8: 36 AM SYSTEM ENGINEER documented as of this encounter Plan of Treatment Not on file documented as of this encounter Visit Diagnoses Not on filedocumented in this encounter Additional Health Concerns Assessment Noted Time PHQ-9 Depression Total Score: 25 017 7:07 AM CDT documented as of this encounter Care Teams Clinic Assistant Relationship Specialty Start Date End Date Andrez Krause PA-C PCP - General Physician Screen Repairer Crusher - Medical 10/09/15 05/29/21 Andrez Krause PA-C [address] [place] [address] PCP - Assigned PCP 09/13/15 12/14/18 Heaven Brunson PA-C [facility] [address] [place] [address] PCP - General Physician Screen Repairer Crusher 05/30/21 Andrez Krause PA-C [address] [place] [address] Assigned PCP 09/13/15 06/20/22 Mona Tian MD [address] [place] [address] Assigned OBGYN Provider 08/03/20 Brett Torres [facility] [address] [facility] 255 [place] [address] Assigned Behavioral Health Provider 07/14/21 01/02/23 Karen Galvan PA-C [address] [place] [address] [place] [address] Assigned Sleep Provider 09/01/21 Marie Lawrence, [facility] 5775 [facility] 200 [place] [address] Assigned MTM Pharmacist 04/05/22 documented as of this encounter
--- OUTSIDE RECORDS SUMMARY | 2024-02-11 11:25 | XMS_ITS | Encounter Summary ---
Author Name Unknown Organization [place] Address [address] [place] [address] Care Team Providers Care Fitness And Wellness Instructor Name Role Phone Andrez Krause PA-C Primary Care Provider Andrez Krause PA-C Unavailable + [phone] Andrez Krause PA-C Unavailable + [phone] Mona Tian MD Unavailable [phone] Heaven Brunson PA-C Primary Care Provider Brett Torres MD Unavailable +[phone] Karen Galvan PA-C Unavailable + [phone] Marie Lawrence [facility] Unavailable +[phone] Reason for Visit * Reason Onset Date Comments Infection 03/03/2016 Tonsil Encounter Details Date Type Department Care Team (Late st Contact Info) Description 03/03/2016 MyC Medical Advice [address], [address] [place] [address] Andrez Krause PA-C [address] [place] [address] Infection (Tonsil) Social History Tobacco Use Types Packs/Day Years Used Date Smoking Tobacco: Never Alcohol Use Standard Drinks/Week Comments Yes 0 (1 standard drink = 0.6 oz pur e alcohol) socially Sex and Gender Information Value Date Recorded Sex Assigned at Female 11/04/2018 8:36 AM CABINET WORKER Gender Identity Female 11/04/2018 8:36 AM CABINET WORKER Sexual Orientation Straight 11/04/2018 8: 36 AM CABINET WORKER documented as of this encounter Plan of Treatment Not on file documented as of this encounter Visit Diagnoses Not on filedocumented in this encounter Additional Health Concerns Assessment Noted Time PHQ-9 Depression Total Score: 21 016 9:30 AM CDT documented as of this encounter Care Teams Fitness And Wellness Instructor Relationship Specialty Start Date End Date Andrez Krause PA-C PCP - General Physician Drafter Electronic - Medical 10/09/15 05/29/21 Andrez Krause PA-C [address] [place] [address] PCP - Assigned PCP 09/13/15 12/14/18 Heaven Brunson PA-C [facility] [address] [place] [address] PCP - General Physician Drafter Electronic 05/30/21 Andrez Krause PA-C [address] [place] [address] Assigned PCP 09/13/15 06/20/22 Mona Tian MD [address] [place] [address] Assigned OBGYN Provider 08/03/20 Brett Torres [facility] [address] [address] Assigned Behavioral Health Provider 07/14/21 01/02/23 Karen Galvan PA-C [address] [facility] [address] [place] [address] Assigned Sleep Provider 09/01/21 Marie Lawrence, [facility] 5775 [facility] [address] [place], [place] [address] Assigned MTM Pharmacist 04/05/22 documented as of this encounter
--- OUTSIDE RECORDS SUMMARY | 2024-02-11 11:25 | XMS_ITS | Encounter Summary ---
Author Name Unknown Organization [place] Address [address] [place] [address] Care Team Providers Care Roller Presser Operator Name Role Phone Andrez Krause PA-C Primary Care Provider Andrez Krause PA-C Unavailable +[phone] Andrez Krause PA-C Unavailable +[phone] Mona Tian MD Unavailable [phone] Heaven Brunson PA-C Primary Care Provider Brett Torres MD Unavailable +[phone] Karen Galvan PA-C Unavailable + [phone] Marie Lawrence [facility] Unavailable +[phone] Reason for Visit * Reason Onset Date Comments MyChart Communication 10/22/2016 PHQ-9, due for depression follow up Encounter Details Date Type Department Care Team (Latest Contact Info) Description 10/22/2016 MyC Medical Advice [address], [address] [place] [address] Marnie Mabry MA MyChart Communication (PHQ-9, due for depr... Social History Tobacco Use Types Packs/Day Years Used Date Smoking Tobacco: Never Smokeless Tobacco: Never Alcohol Use Standard Drinks/Week Comments Yes 0 (1 standard drink = 0.6 oz pur e alcohol) socially Sex and Gender Information Value Date Recorded Sex Assigned at Female 11/04/2018 8:36 AM BRAZER CRAWLER TORCH Gender Identity Female 11/04/2018 8:36 AM BRAZER CRAWLER TORCH Sexual Orientation Straight 11/04/2018 8: 36 AM BRAZER CRAWLER TORCH documented as of this encounter Plan of Treatment Not on file documented as of this encounter Visit Diagnoses Not on filedocumented in this encounter Additional Health Concerns Assessment Noted Time PHQ-9 Depression Total Score: 21 016 7:20 AM CDT documented as of this encounter Care Teams Roller Presser Operator Relationship Specialty Start Date End Date Andrez Krause PA-C PCP - General Physician Laborer Operator - Medical 10/09/15 05/29/21 Andrez Krause PA-C [address] [place] [address] PCP - Assigned PCP 09/13/15 12/14/18 Heaven Brunson PA-C [facility] [address] [address] PCP - General Physician Laborer Operator 05/30/21 Andrez Krause PA-C [address] [place] [address] Assigned PCP 09/13/15 06/20/22 Mona Tian MD [address] [place] [address] Assigned OBGYN Provider 08/03/20 Brett Torres [facility] [address] [facility] 255 [place], [place] [address] Assigned Behavioral Health Provider 07/14/21 01/02/23 Karen Galvan PA-C [address] [address] Assigned Sleep Provider 09/01/21 Marie Lawrence, [facility] 5775 [facility] 200 [place], [place] [address] Assigned MTM Pharmacist 04/05/22 documented as of this encounter
--- OUTSIDE RECORDS SUMMARY | 2024-02-11 11:25 | XMS_ITS | Encounter Summary ---
Author Name Unknown Organization [place] Address [address] [place] [address] Care Team Providers Care Regional Account Executive Name Role Phone Andrez Krause PA-C Primary Care Provider Andrez Krause PA-C Unavailable + [phone] Andrez Krause PA-C Unavailable +[phone] Mona Tian MD Unavailable [phone] Heaven Brunson PA-C Primary Care Provider Brett Torres MD Unavailable +[phone] Karen Galvan PA-C Unavailable + [phone] Marie Lawrence [facility] Unavailable +[phone] Reason for Visit * Reason Onset Date Comments Medication Problem 02/13/2016 Lexapro Encounter Details Date Type Department Care Team (Late st Contact Info) Description 02/13/2016 MyC Medical Advice [address], [address] [place] [address] Andrez Krause PA-C [address] [place] [address] Medication Problem (Lexapro) Social History Tobacco Use Types Packs/Day Years Used Date Smoking Tobacco: Never Alcohol Use Standard Drinks/Week Comments Yes 0 (1 standard drink = 0.6 oz pur e alcohol) Sex and Gender Information Value Date Recorded Sex Assigned at Female 11/04/2018 8:36 AM ELECTRONICS INSPECTOR Gender Identity Female 11/04/2018 8:36 AM ELECTRONICS INSPECTOR Sexual Orientation Straight 11/04/2018 8: 36 AM ELECTRONICS INSPECTOR documented as of this encounter Plan of Treatment Not on file documented as of this encounter Visit Diagnoses Not on filedocumented in this encounter Additional Health Concerns Assessment Noted Time PHQ-9 Depression Total Score: 21 01/08/ 016 9:30 AM CDT documented as of this encounter Care Teams Regional Account Executive Relationship Specialty Start Date End Date Andrez Krause PA-C PCP - General Physician On Air Director - Medical 10/09/15 05/29/21 Andrez Krause PA-C [address] [place] [address] PCP - Assigned PCP 09/13/15 12/14/18 Haeven Brunson PA-C [facility] [address] [place] [address] PCP - General Physician On Air Director 05/30/21 Andrez Krause PA-C [address] [place] [address] Assigned PCP 09/13/15 06/20/22 Mona Tian MD [address] [place] [address] Assigned OBGYN Provider 08/03/20 Brett Torres [facility] [address] [place] [address] Assigned Behavioral Health Provider 07/14/21 01/02/23 Karen Galvan PA-C [address] [facility] [address] [place] [address] Assigned Sleep Provider 09/01/21 Marie Lawrence, [facility] 5775 [facility] [address] [place] [address] Assigned MTM Pharmacist 04/05/22 documented as of this encounter
--- OUTSIDE RECORDS SUMMARY | 2024-02-11 11:25 | XMS_ITS | Encounter Summary ---
Author Name Unknown Organization [facility] Address [address] [place] [address] Care Team Providers Care Manager Respiratory Care Name Role Phone Andrez Krause PA-C Primary Care Provider Andrez Krause PA-C Unavailable +[phone] Andrez Krause PA-C Unavailable +[phone] Mona Tian MD Unavailable [phone] Heaven Brunson PA-C Primary Care Provider Brett Torres MD Unavailable +[phone] Karen Galvan PA-C Unavailable +[phone] Marie Lawrence [facility] Unavailable +[phone] Encounter Details Date Type Department Care Team (Late st Contact Info) Description 06/11/2016 MyC Medical Advice [address], [address] [place] [address] Josefina Diop, SENIOR TECHNICAL WRITER PALLET REPAIRER [address] [place] [address] [address] [place] [address] Social History Tobacco Use Types Packs/Day Years Used Date Smoking Tobacco: Never Smokeless Tobacco: Never Alcohol Use Standard Drinks/Week Comments Yes 0 (1 standard drink = 0.6 oz pur e alcohol) socially Sex and Gender Information Value Date Recorded Sex Assigned at Female 11/04/2018 8:36 AM UTILITY WORKER Gender Identity Female 11/04/2018 8:36 AM UTILITY WORKER Sexual Orientation Straight 11/04/2018 8: 36 AM UTILITY WORKER documented as of this encounter Plan of Treatment Not on file documented as of this encounter Visit Diagnoses Not on filedocumented in this encounter Additional Health Concerns Assessment Noted Time PHQ-9 Depression Total Score: 25 016 7:14 AM CDT documented as of this encounter Care Teams Manager Respiratory Care Relationship Specialty Start Date End Date Andrez Krause PA-C PCP - General Physician Nutrition Teacher - Medical 10/09/15 05/29/21 Andrez Krause PA-C [address] [place] [address] PCP - Assigned PCP 09/13/15 12/14/18 Heaven Brunson PA-C [facility] [address] [place] [address] PCP - General Physician Nutrition Teacher 05/30/21 Andrez Krause PA-C [address] [place] [address] Assigned PCP 09/13/15 06/20/22 Mona Tian MD [address] [place], [place] [address] Assigned OBGYN Provider 08/03/20 Brett Torres [facility] [address] [facility] 255 [place], [place] [address] Assigned Behavioral Health Provider 07/14/21 01/02/23 Karen Galvan PA-C [address] [address] Assigned Sleep Provider 09/01/21 Marie Lawrence, [facility] 5775 [facility] 200 [place], [place] [address] Assigned MTM Pharmacist 04/05/22 documented as of this encounter
--- OUTSIDE RECORDS SUMMARY | 2024-02-11 11:25 | XMS_ITS | Encounter Summary ---
Author Name Unknown Organization [facility] Address [address] [place] [address] Care Team Providers Care House Director Name Role Phone Andrez Krause PA-C Primary Care Provider Andrez Krause PA-C Unavailable +[phone] Andrez Krause PA-C Unavailable +[phone] Mona Tian MD Unavailable [phone] Heaven Brunson PA-C Primary Care Provider Brett Torres MD Unavailable [phone] Karen Galvan PA-C Unavailable + [phone] Marie Lawrence [facility] Unavailable +[phone] Encounter Details Date Type Department Care Team (Late st Contact Info) Description 12/31/2015 MyC Medical Advice [address], [address] [place] [address] Brittani Caraballo RN Social History Tobacco Use Types Packs/Day Years Used Date Smoking Tobacco: Never Alcohol Use Standard Drinks/Week Comments Yes 0 (1 standard drink = 0.6 oz pur e alcohol) Sex and Gender Information Value Date Recorded Sex Assigned at Female 11/04/2018 8:36 AM DATA PROCESSING SYSTEMS PROJECT PLANNER Gender Identity Female 11/04/2018 8:36 AM DATA PROCESSING SYSTEMS PROJECT PLANNER Sexual Orientation Straight 11/04/2018 8: 36 AM DATA PROCESSING SYSTEMS PROJECT PLANNER documented as of this encounter Plan of Treatment Not on file documented as of this encounter Visit Diagnoses Not on filedocumented in this encounter Additional Health Concerns Assessment Noted Time PHQ-9 Depression Total Score: 21 2 016 8:26 AM CDT documented as of this encounter Care Teams House Director Relationship Specialty Start Date End Date Andrez Krause PA-C PCP - General Physician Field Case Manager - Medical 10/09/15 05/29/21 Andrez Krause PA-C [address] [place] [address] PCP - Assigned PCP 09/13/15 12/14/18 Heaven Brunson PA-C [facility] [address] [place] [address] PCP - General Physician Field Case Manager 05/30/21 Andrez Krause PA-C [address] [place] [address] Assigned PCP 09/13/15 06/20/22 Mona Tian MD [address] [facility] [place] [address] Assigned OBGYN Provider 08/03/20 Brett Torres [facility] [address] [facility] 255 [place] [address] Assigned Behavioral Health Provider 07/14/21 01/02/23 Karen Galvan PA-C [address] [address] Assigned Sleep Provider 09/01/21 Marie Lawrence, [facility] 5775 [facility] 200 [place] [address] Assigned MTM Pharmacist 04/05/22 documented as of this encounter
--- OUTSIDE RECORDS SUMMARY | 2024-02-11 11:25 | XMS_ITS | Encounter Summary ---
Author Name Unknown Organization [facility] Address [address] [place] [address] Care Team Providers Care Lye Boiler Name Role Phone Andrez Krause PA-C Primary Care Provider Andrez Krause PA-C Unavailable + [phone] Andrez Krause PA-C Unavailable + [phone] Mona Tian MD Unavailable [phone] Heaven Brunson PA-C Primary Care Provider Brett Torres MD Unavailable +[phone] Karen Galvan PA-C Unavailable + [phone] Marie Lawrence [facility] Unavailable +[phone] Reason for Visit * Reason Onset Date Comments Refill Request 03/23/2016 Encounter Details Date Type Department Care Team (Late st Contact Info) Description 03/23/2016 MyC [place] [address], [address] [place] [address] Andrez Krause PA-C [address] [place] [address] Refill Request Social History Tobacco Use Types Packs/Day Years Used Date Smoking Tobacco: Never Alcohol Use Standard Drinks/Week Comments Yes 0 (1 standard drink = 0.6 oz pur e alcohol) socially Sex and Gender Information Value Date Recorded Sex Assigned at Female 11/04/2018 8:36 AM COMMUNICATIONS LEAD Gender Identity Female 11/04/2018 8:36 AM COMMUNICATIONS LEAD Sexual Orientation Straight 11/04/2018 8: 36 AM COMMUNICATIONS LEAD documented as of this encounter Miscellaneous Notes * Telephone Encounter - Una Berry - 03/26/2016 2:37 PM CDT Patient scheduled appt through [email or web address] for 03/31 * Telephone Encounter - Josefina Diop RN - 03/25/2016 10:53 AM CDT Per last refill PCP wants to see patient Josefina Diop RN, BSN * Telephone Encounter - Josefina Diop RN - 03/25/2016 10:52 AM CDTMessage from [email or web address]: Original authorizing provider: LUIS ANTONIO Molina would like a refill of the following medications: citalopram (CELEXA) 20 MG tablet [Andrez Krause PA-C] Preferred pharmacy: [id number] [place] [address] Comment: documented in this encounter Plan of Treatment Not on file documented as of this encounter Visit Diagnoses Diagnosis Adjustment disorder with mixed anxiety and depressed mood documented in this encounter Additional Health Concerns Assessment Noted Time PHQ-9 Depression Total Score: 21 016 9:30 AM CDT documented as of this encounter Care Teams Lye Boiler Relationship Specialty Start Date End Date Andrez Krause PA-C PCP - General Physician Sales And Operations Trainee - Medical 10/09/15 05/29/21 Andrez Krause PA-C [address] [place] [address] PCP - Assigned PCP 09/13/15 12/14/18 Heaven Brunson PA-C [facility] [address] [place] [address] PCP - General Physician Sales And Operations Trainee 05/30/21 Andrez Krause PA-C [address] [facility] [place] [address] Assigned PCP 09/13/15 06/20/22 Mona Tian MD [address] [place], [place] [address] Assigned OBGYN Provider 08/03/20 Brett Torres [facility] [address] [facility] 255 [place], [place] [address] Assigned Behavioral Health Provider 07/14/21 01/02/23 Karen Galvan PA-C [address] [facility] 103 [place] [address] Assigned Sleep Provider 09/01/21 Marie Lawrence, [facility] 5775 [facility] 200 [place], [place] [id number] Assigned MTM Pharmacist 04/05/22 documented as of this encounter
--- OUTSIDE RECORDS SUMMARY | 2024-02-11 11:25 | XMS_ITS | Encounter Summary ---
Author Name Unknown Organization [facility] Address [address] [place] [address] Care Team Providers Care Professor Of Psychology Name Role Phone Andrez Krause PA-C Primary Care Provider Andrez Krause PA-C Unavailable [phone] Andrez Krause PA-C Unavailable +[phone] Mona Tian MD Unavailable [phone] Heaven Brunson PA-C Primary Care Provider Brett Torres MD Unavailable [phone] Karen Galvan PA-C Unavailable + [phone] Marie Lawrence [facility] Unavailable +[phone] Reason for Visit * Reason Comments Medication Refill gabapentin (NEURONTI N) 100 MG capsule Encounter Details Date Type Department Care Team (Late st Contact Info) Description 01/16/[address], [address] [place] [address] Andrez Krause PA-C [address] [place] [address] Medication Refill (gabapentin (NEURONTIN) 100 MG capsule) Social History Tobacco Use Types Packs/Day Years Used Date Smoking Tobacco: Never Smokeless Tobacco: Never Alcohol Use Standard Drinks/Week Comments Yes 0 (1 standard drink = 0.6 oz pur e alcohol) socially Sex and Gender Information Value Date Recorded Sex Assigned at Female 11/04/2018 8:36 AM GAUGE AND WEIGH MACHINE ADJUSTER Gender Identity Female 11/04/2018 8:36 AM GAUGE AND WEIGH MACHINE ADJUSTER Sexual Orientation Straight 11/04/2018 8: 36 AM GAUGE AND WEIGH MACHINE ADJUSTER documented as of this encounter Miscellaneous Notes * Telephone Encounter - Denia Reddy - 01/17/2017 9:02 AM CDT gabapentin (NEURONTIN) 100 MG capsule Sig: Take 1 capsule (100 mg) by mouth At Bedtime Last Written Prescription Date: 12/18/16 Last Quantity: 30, # refills: 0 Last Office Visit with [facility] or [facility] prescribing provider: 01/15/2017 Creatinine Date Value Ref [...] for review/approval because: Drug not on the [facility] or [facility] refill protocol or controlled substance TAVO Cesar [...] Depression Total Score: 24 017 7:05 AM GAUGE AND WEIGH MACHINE ADJUSTER documented as of this encounter Care Teams Professor Of Psychology Relationship Specialty Start Date End Date Andrez Krause PA-C PCP - General Physician Director Of Plant Operations - Medical 10/09/15 05/29/21 Andrez Krause PA-C [address] [place] [address] PCP - Assigned PCP 09/13/15 12/14/18 Heaven Brunson PA-C [facility] [address] [place] [address] PCP - General Physician Director Of Plant Operations 05/30/21 Andrez Krause PA-C [address] [facility] [place] [address] Assigned PCP 09/13/15 06/20/22 Mona Tian MD [address] [place] [address] Assigned OBGYN Provider 08/03/20 Brett Torres [facility] [address] [facility] 255 [place], [place] [address] Assigned Behavioral Health Provider 07/14/21 01/02/23 Karen Galvan PA-C [address] [facility] 103 [place] [address] Assigned Sleep Provider 09/01/21 Marie Lawrence, [facility] 57[address] [facility] 200 [place], [place] [address] Assigned MTM Pharmacist 04/05/22 documented as of this encounter
--- OUTSIDE RECORDS SUMMARY | 2024-02-11 11:25 | XMS_ITS | Encounter Summary ---
Author Name Unknown Organization [facility] Address [address] [place] [address] Care Team Providers Care Energy Trader Name Role Phone Andrez Krause PA-C Primary Care Provider Andrez Krause PA-C Unavailable + [phone] Andrez Krause PA-C Unavailable + [phone] Mona Tian MD Unavailable [phone] Heaven Brunson PA-C Primary Care Provider Brett Torres MD Unavailable +[phone] Karen Galvan PA-C Unavailable + [phone] Marie Lawrence [facility] Unavailable [phone] Reason for Visit * Reason Onset Date Comments Forms 04/08/2017 FMLA Encounter Details Date Type Department Care Team (Late st Contact Info) Description 04/08/2017 MyC Medical Advice [address], [address] [place] [address] Andrez Krause PA-C [address] [place] [address] Forms (FMLA) Social History Tobacco Use Types Packs/Day Years Used Date Smoking Tobacco: Never Smokeless Tobacco: Never Alcohol Use Standard Drinks/Week Comments Yes 0 (1 standard drink = 0.6 oz pur e alcohol) socially Sex and Gender Information Value Date Recorded Sex Assigned at Female 11/04/2018 8:36 AM CEMENT BOAT AND BARGE LOADER Gender Identity Female 11/04/2018 8:36 AM CEMENT BOAT AND BARGE LOADER Sexual Orientation Straight 11/04/2018 8: 36 AM CEMENT BOAT AND BARGE LOADER documented as of this encounter Plan of Treatment Not on file documented as of this encounter Visit Diagnoses Not on filedocumented in this encounter Additional Health Concerns Assessment Noted Time PHQ-9 Depression Total Score: 11 017 7:20 AM CDT documented as of this encounter Care Teams Energy Trader Relationship Specialty Start Date End Date Andrez Krause PA-C PCP - General Physician Log Operations Coordinator - Medical 10/09/15 05/29/21 nAdrez Krause PA-C [address] [place] [address] PCP - Assigned PCP 09/13/15 12/14/18 Heaven Brunson PA-C [facility] [address] [place] [address] PCP - General Physician Log Operations Coordinator 05/30/21 Andrez Krause PA-C [address] [place] [address] Assigned PCP 09/13/15 06/20/22 Mona Tian MD [address] [place] [address] Assigned OBGYN Provider 08/03/20 Brett Torres [facility] [address] [place] [address] Assigned Behavioral Health Provider 07/14/21 01/02/23 Karen Galvan PA-C [address] [facility] [address] [place] [address] Assigned Sleep Provider 09/01/21 Marie Lawrence, [facility] 5775 [facility] 200 [place], [place] [address] Assigned MTM Pharmacist 04/05/22 documented as of this encounter
--- OUTSIDE RECORDS SUMMARY | 2024-02-11 11:25 | XMS_ITS | Encounter Summary ---
Author Name Unknown Organization [facility] Address [address] [place] [address] Care Team Providers Care Swimming Pool Installer Name Role Phone Andrez Krause PA-C Primary Care Provider Andrez Krause PA-C Unavailable + [phone] Andrez Krause PA-C Unavailable +[phone] Mona Tian MD Unavailable [phone] Heaven Brunson PA-C Primary Care Provider Brett Torres MD Unavailable +[phone] Karen Galvan PA-C Unavailable + [phone] Marie Lawrence [facility] Unavailable +[phone] Reason for Visit * Reason Onset Date Comments Refill Request 01/02/2016 Imitrex Encounter Details Date Type Department Care Team (Late st Contact Info) Description 01/02/2016 MyC Refill [address], [address] [place] [address] Andrez Krause PA-C [address] [place] [address] Refill Request (Imitrex) Social History Tobacco Use Types Packs/Day Years Used Date Smoking Tobacco: Never Alcohol Use Standard Drinks/Week Comments Yes 0 (1 standard drink = 0.6 oz pur e alcohol) Sex and Gender Information Value Date Recorded Sex Assigned at Female 11/04/2018 8:36 AM TROUBLE DISPATCHER Gender Identity Female 11/04/2018 8:36 AM TROUBLE DISPATCHER Sexual Orientation Straight 11/04/2018 8: 36 AM TROUBLE DISPATCHER documented as of this encounter Miscellaneous Notes [...] # refills: 1 Last Office Visit with [facility] or [facility] prescribing provider: 11/23/2015 Next 5 appointments (look out 90 days) Jan 08, 2016 4:30 PM Anastasiya Long with Andrez Krause PA-C [facility] [id number] [place] [address] BP Readings from Last 3 Encounters: [...] tablet [Andrez Krause PA-C] Preferred pharmacy: [id number] - [facility] [id number] [place] [address] Comment: documented in this encounter Plan of [...] documented as of this encounter Care Teams Swimming Pool Installer Relationship Specialty Start Date End Date Andrez Krause PA-C PCP - General Physician Pv Design Engineer - Medical 10/09/15 05/29/21 Andrez Krause PA-C [address] [place] [address] PCP - Assigned PCP 09/13/15 12/14/18 Heaven Brunson PA-C [facility] [address] [place] [address] PCP - General Physician Pv Design Engineer 05/30/21 Andrez Krause PA-C [address] [place] [address] Assigned PCP 09/13/15 06/20/22 Mona Tian MD [address] [place], [place] [address] Assigned OBGYN Provider 08/03/20 Brett Torres [facility] [address] [facility] 255 [place], [place] [address] Assigned Behavioral Health Provider 07/14/21 01/02/23 Karen Galvan PA-C [address] [facility] 103 [place], [place] [address] Assigned Sleep Provider 09/01/21 Marie Lawrence, [facility] 5775 [facility] 200 [place] [address] Assigned MTM Pharmacist 04/05/22 documented as of this encounter
--- OUTSIDE RECORDS SUMMARY | 2024-02-11 11:25 | XMS_ITS | Encounter Summary ---
Author Name Unknown Organization [facility] Address [address] [place] [address] Care Team Providers Care Glass Processing Worker Name Role Phone Andrez Krause PA-C Primary Care Provider Andrez Krause PA-C Unavailable +[phone] Andrez Krause PA-C Unavailable +[phone] Mona Tian MD Unavailable [phone] Heaven Brunson PA-C Primary Care Provider Brett Torres MD Unavailable +[phone] Karen Galvan PA-C Unavailable + [phone] Marie Lawrence [facility] Unavailable +[phone] Encounter Details Date Type Department Care Team (Late st Contact Info) Description 10/28/2017 MyC Medical Advice [address], [address] [place] [address] Marnie Mabry MA Social History Tobacco Use Types Packs/Day Years Used Date Smoking Tobacco: Never Smokeless Tobacco: Never Alcohol Use Standard Drinks/Week Comments Yes 0 (1 standard drink = 0.6 oz pur e alcohol) socially Sex and Gender Information Value Date Recorded Sex Assigned at Female 11/04/2018 8:36 AM RECYCLING CREW SUPERVISOR Gender Identity Female 11/04/2018 8:36 AM RECYCLING CREW SUPERVISOR Sexual Orientation Straight 11/04/2018 8: 36 AM RECYCLING CREW SUPERVISOR documented as of this encounter Plan of Treatment Not on file documented as of this encounter Visit Diagnoses Not on filedocumented in this encounter Additional Health Concerns Assessment Noted Time PHQ-9 Depression Total Score: 20 018 1:03 PM RECYCLING CREW SUPERVISOR documented as of this encounter Care Teams Glass Processing Worker Relationship Specialty Start Date End Date Andrez Krause PA-C PCP - General Physician Adult Manager - Medical 10/09/15 05/29/21 Andrez Krause PA-C [address] [place] [address] PCP - Assigned PCP 09/13/15 12/14/18 Heaven Brunson PA-C [facility] [address] [place] [address] PCP - General Physician Adult Manager 05/30/21 Andrez Krause PA-C [address] [place] [address] Assigned PCP 09/13/15 06/20/22 Mona Tian MD [address] [place] [address] Assigned OBGYN Provider 08/03/20 Brett Torres [facility] [address] [facility] 255 [place] [address] Assigned Behavioral Health Provider 07/14/21 01/02/23 Karen Galvan PA-C [address] [place] [address] Assigned Sleep Provider 09/01/21 Marie Lawrence, [facility] 57[address] [facility] 200 [place] [address] Assigned MTM Pharmacist 04/05/22 documented as of this encounter
--- OUTSIDE RECORDS SUMMARY | 2024-02-11 11:25 | XMS_ITS | Encounter Summary ---
Author Name Unknown Organization [facility] Address [address] [place] [address] Care Team Providers Care Fiberglass Model Maker Name Role Phone Andrez Krause PA-C Primary Care Provider Andrez Krause PA-C Unavailable + [phone] Andrez Krause PA-C Unavailable + [phone] Mona Tian MD Unavailable [phone] Heaven Brunson PA-C Primary Care Provider Brett Torres MD Unavailable [phone] Karen Galvan PA-C Unavailable + [phone] Marie Lawrence [facility] Unavailable +[phone] Reason for Visit * Reason Onset Date Comments Mental Health Problem 09/11/2017 Encounter Details Date Type Department Care Team (Late st Contact Info) Description 09/11/2017 MyC Medical Advice [address], [address] [place] [address] Andrez Krause PA-C [address] [place] [address] Mental Health Problem Social History Tobacco Use Types Packs/Day Years Used Date Smoking Tobacco: Never Smokeless Tobacco: Never Alcohol Use Standard Drinks/Week Comments Yes 0 (1 standard drink = 0.6 oz pur e alcohol) socially Sex and Gender Information Value Date Recorded Sex Assigned at Female 11/04/2018 8:36 AM BUSINESS ANALYTICS MANAGER Gender Identity Female 11/04/2018 8:36 AM BUSINESS ANALYTICS MANAGER Sexual Orientation Straight 11/04/2018 8: 36 AM BUSINESS ANALYTICS MANAGER documented as of this encounter Plan of Treatment Not on file documented as of this encounter Visit Diagnoses Not on filedocumented in this encounter Additional Health Concerns Assessment Noted Time PHQ-9 Depression Total Score: 25 017 7:54 AM BUSINESS ANALYTICS MANAGER documented as of this encounter Care Teams Fiberglass Model Maker Relationship Specialty Start Date End Date Andrez Krause PA-C PCP - General Physician Face Hardener - Medical 10/09/15 05/29/21 Andrez Krause PA-C [address] [place] [address] PCP - Assigned PCP 09/13/15 12/14/18 Heaven Brunson PA-C [facility] [address] [place] [address] PCP - General Physician Face Hardener 05/30/21 Andrez Krause PA-C [address] [place] [address] Assigned PCP 09/13/15 06/20/22 Mona Tian MD [address] [place] [address] Assigned OBGYN Provider 08/03/20 Brett Torres [facility] [address] [place] [address] Assigned Behavioral Health Provider 07/14/21 01/02/23 Karen Galvan PA-C [address] [facility] [address] [place] [address] Assigned Sleep Provider 09/01/21 Marie Lawrence, [facility] 5775 [facility] 200 [place] [address] Assigned MTM Pharmacist 04/05/22 documented as of this encounter
[2024-02-11 11:45] LABS: Lactate* 1.1 mmol/L (0.5-1.9)
[2024-02-11 11:47] LABS: Basophils Absolute Auto 0.04 K/uL (0.00-0.30); Basophils Percent Auto 0.4 % (0.0-3.0); Eosinophils Absolute Auto 0.27 K/uL (0.00-0.50); Eosinophils Percent Auto 2.9 % (0.0-7.0); Hematocrit 43.8 % (33.0-51.0); Hemoglobin* 14.7 gm/dL (12.0-16.0); Immature Granulocytes Abs Auto 0.01 K/uL (0.00-0.30); Immature Granulocytes Pct Auto 0.1 %; Lymphocytes Absolute Auto 2.18 K/uL (0.90-2.90); Lymphocytes Percent Auto 23.1 % (20-44); Mean Corpuscular HGB Conc 34 gm/dL (32-36); Mean Corpuscular Hemoglobin 31 pg (26-34); Mean Corpuscular Volume 94 fL (80-100); Monocytes Percent Auto 6.6 % (0.0-11.0); Neutrophils Percent Auto 66.9 % (42.0-72.0); Platelet Count* 367 K/uL (140-440); RDW Coefficient of Variation % 11.7 % (11.5-15.5); Red Blood Count 4.68 m/uL (4.00-5.20); White Blood Count* 9.42 K/uL (4.50-11.00)
--- NOTE | 2024-02-11 11:56 | CT_ITS ---
Patient: CHRISTI FUCHS Facility:?[facility] RIS Patient ID:?[id number] Site Patient ID:?[id number]. Site :?1993 Study:?CT-Abdomen/Pelvis w/ 118cc [id number]/2/2024 12:43:02 PM Ordering Physician:?Eligio Hicks Final Report: Indication: Abd pain - mostly right side N/V x3 days Technique: CT abdomen/pelvis with IV contrast, 118 mL Isovue 370 Comparison: CT abdomen/pelvis on November 06, 2022 Findings: Lower thorax: Unremarkable Abdomen/pelvis: The liver, gallbladder and biliary system, spleen, pancreas, adrenal glands, kidneys, ureters, bladder, uterus, and ovaries are unremarkable in appearance. Stable small splenule seen inferior to the spleen. No evidence of bowel obstruction or inflammation. Status post appendectomy. No free fluid or free air. No abscess. No abdominopelvic lymphadenopathy. The vasculature is unremarkable. Soft tissue/musculoskeletal: Small hiatal hernia. The osseous structures are unremarkable. Impression: No CT evidence of acute process involving the abdomen or pelvis. Please note that all CT scans at this facility use dose modulation, iterative reconstruction, and/or weight-based dosing when appropriate to reduce radiation dose to as low as reasonably achievable. Dictated by Kenneth Karimi MD @ 02/11/2024 12:52:51 PM Signed by:?Kenneth Karimi MD @02/11/2024 12:52:51 PM (Electronic Signature)
[2024-02-11] MEDS: 0.9 % SODIUM CHLORIDE 1000 ml 1,000 ML IV ×2 (12:02→13:20)
[2024-02-11 12:05] LABS: Chloride* 104 mmol/L (96-114)
[2024-02-11 12:06] LABS: Albumin* 4.9 g/dL (3.3-5.0); Potassium* 3.7 mmol/L (3.6-5.1); Sodium* 139 mmol/L (135-149)
[2024-02-11 12:08] LABS: Amylase* 68 U/L (18-89); Anion Gap 11 mEq/L (7-15); Carbon Dioxide* 24 mmol/L (20-32)
[2024-02-11 12:09] LABS: Alanine Aminotransferase* 18 U/L (4-35); Alkaline Phosphatase* 82 U/L (40-150); Aspartate Amino Transferase* 26 U/L (12-35); Bilirubin Total* 0.5 mg/dL (0.1-1.5); Blood Urea Nitrogen* 18 mg/dL (5-24); Calcium* 9.5 mg/dL (8.4-10.6); Creatinine* 0.7 mg/dL (0.5-1.5); Est. Creatinine Clearance* 110.01; Estimated Glomerular Filt Rate 119 ml/min; Glucose* 100 mg/dL (60-115); Total Protein* 8.5 g/dL (6.0-8.3)
[2024-02-11] MEDS: LORazepam 2 MG/ML inj 1 MG IVP (12:23)
--- NOTE | 2024-02-11 12:38 | ED.NAVMDI ---
HPI - Nausea/Vomiting/Diarrhea General Chief complaint: Nausea/Vomiting Stated complaint: Abdominal pain, vomiting since Thursday Time Seen by Provider: 02/11/24 11:13 History of Present Illness HPI Narrative: Patient is a 28-year-old woman who was seen in urgent care yesterday with nausea and vomiting. She was treated symptomatically and lab work looked fairly reasonable. She did receive IV hydration but feels like she is not keeping up further fluids. She does history of fatty liver. She has also had history of an abnormal HIDA scan in the past. Puts different today is she has persistence of symptoms and she now has pain in the right upper quadrant radiating to her back. No fevers no chills no dysuria the vomiting has been nonbilious. She previously had been feeling fine. She did not take her anxiety medicine this morning and is extremely anxious. Related Data Home Medications Medication Instructions Recorded Confirmed rimegepant 75 mg disintegrating 75 mg PO .As Needed PRN 04/16/22 02/10/24 tablet hydroxyzine pamoate 50 mg capsule 50 mg PO 3XD PRN 06/16/23 02/10/24 ondansetron 4 mg disintegrating mg PO 06/16/23 02/10/24 tablet lisdexamfetamine 30 mg capsule 30 mg PO QDAY 10/19/23 02/10/24 (Vyvanse) cholecalciferol (vitamin D3) 50 50 mcg PO DAILY 12/11/23 02/10/24 mcg (2,000 unit) capsule etonogestrel 68 mg subdermal subdermal 12/11/23 02/10/24 implant etonogestrel 68 mg subdermal subdermal 12/11/23 02/10/24 implant (Nexplanon) metoprolol succinate 25 mg 25 mg PO DAILY 12/11/23 02/10/24 tablet,extended release 24 hr (Toprol XL) rimegepant 75 mg disintegrating 75 mg PO Q OTHER DAY 12/11/23 02/10/24 tablet (Nurtec ODT) Previous Rx's Medication Instructions Recorded metformin 500 mg tablet,extended 500 mg PO BID #180 tabs 10/19/23 release 24 hr metoprolol succinate 25 mg 25 mg PO QDAY #90 tabs 12/22/23 tablet,extended release 24 hr peg 3350-electrolytes 236 240 ml PO Q10M #4,000 mL 01/11/24 gram-22.74 gram-6.74 gram-5.86 gram solution (Golytely) Allergies Allergy/AdvReac Type Severity Reaction Status Date / Time iodine Allergy Unknown Itching Verified 01/07/24 14:42 adhesive AdvReac dermatitis Verified 01/07/24 14:42 Review of Systems Status of ROS: Reports: 10 or more systems reviewed and unremarkable except as noted in History and below [facility] Medical History Encounter for sterilization (03/25/22) ?Z30.2 - Encounter for sterilization (ICD-10) Right foot pain ?M79.671 - Pain in right foot (ICD-10) Sterilization (03/25/22) ?Z30.2 - Encounter for sterilization (ICD-10) Severe major depressive disorder ?F32.2 - Major depressive disorder, single episode, severe without psychotic features (ICD-10) Severe anxiety ?F41.9 - Anxiety disorder, unspecified (ICD-10) Posttraumatic stress disorder ?F43.10 - Post-traumatic stress disorder, unspecified (ICD-10) Polycystic ovary syndrome ?E28.2 - Polycystic ovarian syndrome (ICD-10) Morbid obesity with body mass index (BMI) of 40.0 to 44.9 in adult ?E66.01 - Morbid (severe) obesity due to excess calories (ICD-10) ?Z68.41 - Body mass index [BMI] 40.0-44.9, adult (ICD-10) Menorrhagia with irregular cycle ?N92.1 - Excessive and frequent menstruation with irregular cycle (ICD-10) Insomnia ?G47.00 - Insomnia, unspecified (ICD-10) Bipolar disorder with depression ?F31.9 - Bipolar disorder, unspecified (ICD-10) Surgical History Status post surgical removal of both fallopian tubes (03/25/22) ?Z90.79 - Acquired absence of other genital organ(s) (ICD-10) Status post laparoscopic appendectomy ?Z90.49 - Acquired absence of other specified parts of digestive tract (ICD-10) Family History Father No problems noted. Mother Breast cancer Other Bladder cancer Diabetes Liver cancer PCOS (polycystic ovarian syndrome) Social History Narrative: Bookshelver Single Nonsmoker, no alcohol use, no illicit drug use Smoking Status: Never smoker Do you use any of these nicotine containing products: None Second hand tobacco smoke exposure: No How often do you have a drink containing alcohol: never AUDIT-C Alcohol total score: 0 Non-prescribed substance use: marijuana (any form) Non-prescribed substance use details: THC Gummies every night, PT estimates 300 mg Exam Narrative: Exam Narrative: EXAM GENERAL: Patient appears anxious. EYES: No scleral icterus. LYMPH: No supraclavicular or cervical lymphadenopathy. SKIN: Visible skin seen during exam normal or with benign process only. EXT: No dependent lower extremity pedal edema. HEART: Regular rate and rhythm with no murmurs, rubs, or gallops. LUNGS: Clear to auscultation bilaterally with no crackles or wheezes. ABD: Soft, non tender, non distended. PSYCH: Good eye contact, speech is not pressured. Const: Vital Signs, click to edit/add: Vital Signs - 24 hr 02/11/24 11:09 Temperature 97.7 F Pulse Rate [Right Pulse Oximeter] 105 H Respiratory Rate 18 Blood Pressure [Ri ght Upper Arm] 141/87 H Pulse Oximetry 99 Oxygen Delivery Me thod Room Air Course Course ED Course: Patient seen examined. Ultrasound is negative for acute cholecystitis but again she does have history of HIDA scan abnormality. CMP is ordered IV fluids started. Will proceed with CT of the abdomen pelvis. Vital Signs Vital signs: Initial Vital Signs Temperature 97.7 F 02/11/24 11:09 Temperature Source Temporal Artery Scan 02/11/24 11:09 Pulse Rate 105 H 02/11/24 11:09 Respiratory Rate 18 02/11/24 11:09 Blood Pressure 141/87 H 02/11/24 11:09 Blood Pressure Mean 105 02/11/24 11:09 Blood Pressure Position Sitting 02/11/24 11:09 Pulse Oximetry 99 02/11/24 11:09 Oxygen Delivery Method Room Air 02/11/24 11:09 Vital Signs Temperature 97.7 F 02/11/24 11:09 Pulse Rate 105 H 02/11/24 11:09 Respiratory Rate 18 02/11/24 11:09 Blood Pressure 141/87 H 02/11/24 11:09 Pulse Oximetry 99 02/11/24 11:09 Oxygen Delivery Method Room Air 02/11/24 11:09 Temperature 97.7 F 02/11/24 11:09 Pulse Rate 105 H 02/11/24 11:09 Respiratory Rate 18 02/11/24 11:09 Blood Pressure 141/87 H 02/11/24 11:09 Pulse Oximetry 99 02/11/24 11:09 Oxygen Delivery Method Room Air 02/11/24 11:09 Medications Administered Medications: Discontinued Medications Generic Name Dose Route Start Last Admin Trade Name Freq PRN Reason Stop Dose Admin Sodium Chloride 1,000 mls @ 1,000 mls/hr 02/11/24 11:23 02/11/24 12:02 0.9 % Sodium Chloride 1000 Ml IV 02/11/24 12:22 1,000 mls/hr .Q1H DARYN Administration Lorazepam 1 mg 02/11/24 12:17 02/11/24 12:23 Lorazepam 2 Mg/Ml Inj IVP 02/11/24 12:18 1 mg ONCE ONE Administration MDM - Nausea/Vomiting/Diarrhea MDM Narrative Medical decision making narrative: Patient is a 28-year-old woman comes in today with nausea and vomiting continue from a our urgent care visit yesterday with now pain in the right upper quadrant. Her ultrasound is negative. Her CT of the abdomen pelvis is unremarkable. Repeat lab work is largely unremarkable. 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 Of I did give her 2 L of normal saline she feels much better. She does not tolerate Zofran as result I did syndrome with small dose of Ativan 0.5 mg b.i.d. p.r.n. for the next several days recommend primary care follow-up. She will continue her current medications follow-up with her primary physician next week. Differential diagnosis includes but not limited to acute cholecystitis cholelithiasis hepatitis appendicitis bowel obstruction gastroenteritis. Lab Data Labs: Lab Results 02/11/24 Range/Units 11:35 WBC 9.42 (4.50-11.00) K/uL RBC 4.68 (4.00-5.20) m/uL Hgb 14.7 (12.0-16.0) gm/dL Hct 43.8 (33.0-51.0) % MCV 94 (80-100) fL MCH 31 (26-34) pg MCHC 34 (32-36) gm/dL RDW Coeff of Erik 11.7 (11.5-15.5) % Plt Count 367 (140-440) K/uL Neut % (Auto) 66.9 (42.0-72.0) % Lymph % (Auto) 23.1 (20-44) % [place] % (Auto) 6.6 (0.0-11.0) % Eos % (Auto) 2.9 (0.0-7.0) % Baso % (Auto) 0.4 (0.0-3.0) % Neut # (Auto) 6.30 (1.7-7.0) K/uL Lymph # (Auto) 2.18 (0.90-2.90) K/uL [place] # (Auto) 0.60 (0.00-0.90) K/UL Eos # (Auto) 0.27 (0.00-0.50) K/uL Baso # (Auto) 0.04 (0.00-0.30) K/uL Abs Immat Gran (auto) 0.01 (0.00-0.30) K/uL Imm/Tot Granulo (auto) 0.1 % Sodium 139 (135-149) mmol/L Potassium 3.7 (3.6-5.1) mmol/L Chloride 104 (96-114) mmol/L Carbon Dioxide 24 (20-32) mmol/L Anion Gap 11 (7-15) mEq/L BUN 18 (5-24) mg/dL Creatinine 0.7 (0.5-1.5) mg/dL Estimated Creat Clear 110.01 Estimated GFR 119 ml/min Glucose 100 (60-115) mg/dL Lactate 1.1 (0.5-1.9) mmol/L Calcium 9.5 (8.4-10.6) mg/dL Total Bilirubin 0.5 (0.1-1.5) mg/dL AST 26 (12-35) U/L ALT 18 (4-35) U/L Alkaline Phosphatase 82 (40-150) U/L Total Protein 8.5 H (6.0-8.3) g/dL Albumin 4.9 (3.3-5.0) g/dL Amylase 68 (18-89) U/L Discharge Plan Discharge Clinical Impression: Abdominal pain Patient Disposition: Home, Self-Care Condition: Stable Instructions: Abdominal Pain (ED) Additional Instructions: Ativan as directed Continue home medications Advance diet activity as tolerated Follow-up with your doctor next week if not improved. Activity Level: No Restrictions Discharge Diet: Regular Prescriptions: No Action lisdexamfetamine [Vyvanse] 30 mg capsule 30 mg PO QDAY metformin 500 mg tablet extended release 24 hr 500 mg PO BID Qty: 180 1RF Rx Instructions: one tablet twice daily rimegepant 75 mg tablet,disintegrating 75 mg PO .As Needed PRN ondansetron 4 mg tablet,disintegrating PO hydroxyzine pamoate 50 mg capsule 50 mg PO 3XD PRN cholecalciferol (vitamin D3) 50 mcg (2,000 unit) capsule 50 mcg PO DAILY etonogestrel 68 mg implant subdermal Nexplanon 68 mg implant subdermal metoprolol succinate [Toprol XL] 25 mg tablet extended release 24 hr 25 mg PO DAILY Nurtec ODT 75 mg tablet,disintegrating 75 mg PO Q OTHER DAY metoprolol succinate 25 mg tablet extended release 24 hr 25 mg PO QDAY Qty: 90 0RF Rx Instructions: once daily for blood pressure and heart rate peg 3350-electrolytes [Golytely] 236-22.74-6.74 -5.86 gram recon soln 240 ml PO Q10M Qty: 4000 0RF Rx Instructions: until fecal effluent is clear Follow Up/Referrals: Heaven Brunson PA-C [Primary Care Provider] - Stand Alone Forms: [email or web address] Info Instructions
[2024-02-11 14:01] LABS: Slide Review Reflex No
== END 2024-02-11 14:10 | disposition home or self-care (01) ==
PROVIDERS: Emergency Provider Internal Medicine; PCP Physician Assistant Medical
DX: R10.9 Unspecified abdominal pain (principal)
CPT/HCPCS: 36415; 74177; 76705; 80053; 82150; 83605; 85025; 96361; 96374; 99283; 99284; 99285; J2060; J7030; Q9967

== ENCOUNTER 2024-02-22 13:32 | Outpatient (CLI) | payer BC, SELFPAY ==
--- OUTSIDE RECORDS SUMMARY | 2024-02-22 13:35 | XMS_ITS | Continuity of Care Document ---
Author Name Unknown Organization [facility] Address [address] [place] [address] Phone Care Team Providers Care Usability Specialist Name Role Phone Pamela Ceja DNP Unavailable [...] Providers Copied on Encounter OFFICE/OUTPA TIENT VISIT, [facility], [address] [place], [place], [id number] , tel:[phone] [facility] Widespread pain (chief complaint) Chronic pain syndromeChronic migraine without auraOther ocean transportation intermediary (current) drug therapyPain in right ankle and joints of right footMyalgia, other site 4 Brenna Santiago. [address] [facility] 11, [address], [id number], [place]. tel:[phone] Referring Provider: Julio Ballard, [address] [facility] [place], [address] . tel:[phone] OFFICE/OUTPA TIENT VISIT, [facility], [address] [place], [place], [id number] , tel:[phone] [facility] headache (chief complaint) Chronic migraine w/o aura, not intractable, w/o stat migrNausea 0 Stephanie Man. [address] [facility] 11 [facility] [address], [place], [id number], [place]. tel:[phone] Referring Provider: Eliseo Carlton [facility] [address] [place], [address]. tel:[phone] [facility], [address] [place] [address], [id number] , [place] tel:[phone] [facility] Chronic migraine w/o aura, intractable, w/o stat migr Fredrick-0 0 Nyongesa Amgda. [address] [address], [place], [id number], [place]. tel:[phone] Referring Provider: Eliseo Carlton [facility] [address] [place], [address]. tel:[phone] [facility], [address] [place] [address], [id number] , [place] tel:[phone] [facility] No Information 0 Will Julio. [address] [place] [address], [id number], [place]. tel:[phone] [facility], [address] [place] [address], [id number] , [place] tel:[phone] [facility] Chronic migraine w/o aura, not intractable, w/o stat migrChronic migraine w/o aura, intractable, w/o stat migr Feb-0 0 Nyongesa Magda. [address], [id number], [place]. tel:[phone] Referring Provider: Eliseo Carlton [facility] [address] [place], [address]. tel:[phone] [facility], [address] [place] [address], [id number] , [place] tel:[phone] [facility] No Information 0 Nyongesa Magda. [address] [address], [place], [id number], [place]. tel:[phone] [facility], [address] [place], [place], [id number] , [place] tel:[phone] [facility] Marissa Chronic migraine w/o aura, intractable, w/o stat migr 9 [facility] Magda. [address] [facility] [address], [place], [place], [id number], [place]. tel:[phone] Referring Provider: Eliseo Carlton [facility] [address] [place], [address]. tel:[phone] [facility], [address] [place], [place], [id number] , [place] tel:[phone] [facility] Marissa Chronic migraine w/o aura, intractable, w/o stat migr 9 [facility]. [address] [facility] [address], [place], [id number], [place]. tel:[phone] Referring Provider: Eliseo Carlton [facility] [address] [place], [address]. tel:[phone] OFFICE/OUTPA TIENT VISIT, [facility], [address] [place], [place], [id number] , [place] tel:[phone] [facility] Marissa headache (chief complaint) Chronic migraine w/o aura, not intractable, w/o stat migrChronic pain syndromeOther nursing home (current) drug therapy 9 [facility]. [address], [place], [place], [id number], [place]. tel:[phone] Referring Provider: Eliseo Carlton [facility] [address] [place], [address]. tel:[phone] [facility], [address] [place] [address], [id number] , [place] tel:[phone] [facility] Marissa Chronic migraine w/o aura, not intractable, w/o stat migr May- 9 Marco A Bajwa. [facility], [address], [place], [address], [place]. tel:[phone] Referring Provider: Eliseo Carlton [facility] [address] [place], [address]. tel:[phone] OFFICE/OUTPA TIENT VISIT, [facility], [address] [place], [place], [id number] , [place] tel:[phone] [facility] headache (chief complaint) Chronic pain syndromeChronic migraine w/o aura, not intractable, w/o stat migrOther ocean transportation intermediary (current) drug therapy [facility]. [address] [facility] [address], [place], [id number], [place]. tel:[phone] Referring Provider: Eliseo Carlton [facility] [address] [place], [address]. tel:[phone] OFFICE/OUTPA TIENT VISIT, [facility], [address] [place], [place], [id number] , [place] tel:[phone] [facility] headache (chief complaint) Chronic migraine w/o aura, not intractable, w/o stat migrChronic migraine w/o aura, intractable, w/o stat migrChronic pain syndrome Nyonge Magda. [address] [facility] [address], [place], [id number], [place]. tel:[phone] Referring Provider: Eliseo Carlton [facility] [address] [place], [address]. tel:[phone] [facility], [address] [place], [place], [id number] , [place] tel:[phone] [facility] Chronic migraine w/o aura, intractable, w/o stat migr 9 Nyongesa Magda. [address] [facility] [address], [place], [id number], [place]. tel:[phone] Referring Provider: Eliseo Carlton [facility] [address] [place], [address]. tel:[phone] OFFICE/OUTPA TIENT VISIT, [facility], [address] [place], [place], [id number] , [place] tel:[phone] [facility] headache (chief complaint) Chronic pain syndromeChronic migraine w/o aura, not intractable, w/o stat migr [address] [place] [address] [address], [place], [place], [id number], [place]. tel:[phone] Referring Provider: Eliseo Carlton [facility] [address] [place] [address], [address]. tel:[phone] OFFICE/OUTPA TIENT VISIT, [facility], [address] [place], [place], [id number] , [place] tel:[phone] [facility] Headache (chief complaint) Chronic migraine w/o aura, not intractable, w/o stat migrChronic pain syndrome 9 [facility]. [facility], [address], [place], [address], [place]. tel:[phone] Referring Provider: Eliseo Carlton [facility] [address] [place], [address]. tel:[phone] Family History Family Member Type Diagnosis Age At Onset Problem (finding) Family history of chron ic migraines Payers Payer name Insurance type Covered democrat ID Authordeana tiemile(s) [employer] BL [id number] Social History Type Description Quantity Date Captured [...] Of Treatment Date Type Action Status Goal HPV. Due on due Goal Update Social History. Due o n due Goal Height. Due on d ue Goal PHQ-9. Due on du e Goal Unhealthy drug use screening . Due on due Goal Weight. Due on d ue Goal Review Allergy List. Due on due Goal Medication Reconciliation. D ue on due Goal Hepatitis C screening. Due o n due Goal Tobacco Use. Due on 024 due Goal Lifestyle education regardin g diet completed Referral Ordered: Andrez Krause -Family Medicine (related to Chronic migraine w/o aura, not intractable, w/o stat migr) ordered Referral Referred To: Andrez Krause [facility] [place], [phone] Ordered: Referrals: Family Medicine. Andrez Krause ordered [...] evaluation of the patient. Outside records from [facility] are available for review.Starr is a 28 y/o female here for initial consult for widespread pain. She was previously a patient at [facility] in 2019. Pain gradually started while she [...] is interested in all treatment options through [facility]. No other concerns today.Treatments Tried: Gabapentin- Tried [...] sleep onlyLow dose Naltrexone- not helpfulWellbutrinClonodineAmiovigQulipta headache Severity: incapa citating. It occurs constantly. [...] current medication regimen. [facility] is stable [facility]. [facility] [...] the time. Has seen her neurology at [facility], [facility] due to insurance reasons. Headaches >15 days a monthAnn is interested in any treatment option and would like [facility] to assume management of pain care.Previous treatments [...] Chronic migraine without aura Larry assessment Other nursing home (current) drug t herapy assessment Pain in right ankle and joints o f right foot assessment Myalgia, other site impression Starr is a 28 y/o fema le here for initial consult for widespread pain. She was previously a patient at [facility] in 2019. Pain gradually started while she [...] without significant benefit to her pain. [place] [employer] reviewed and consistent. [place] Judicial criminal backgrounds check completed with no outstanding results or concerning convictions Homero-04-2024 Mental Status Date Cognitive Assessment Orientation - [place] ed to time, place, person, situation. Patient Care Teams Name Effective Dates (start - stop) Status Members No Information
--- OUTSIDE RECORDS SUMMARY | 2024-02-22 13:35 | XMS_ITS | Clinical Summary ---
Author Name Unknown Organization [facility] Address [place], [place] [address] Care Team Providers Care Mail Teller Name Role Phone Heaven Brunson PA-C Primary Care Provider + [phone] Allergies Active Allergy Reactions Criticality Noted Date [...] Description 01/26/2024 1:15 PM CDT Office Visit [facility] [address] [place] [address] Gabriel Josue, DPEliseo Post-op (Right foot, DOS 12/14/23, 6 week post op) 01/26/2024 Travel 12/29/2023 1:30 PM CDT Office Visit [facility] [address] [place] [address] Gabriel Josue, DPM Post-op (Right 2 week post op visit, DOS 12/14/23) 12/29/2023 Travel 12/16/2023 10:45 AM SENIOR BEHAVIORAL SCIENTIST Office Visit [facility] [address] [facility] [address] Gabriel Josue, DPM Post-op (Right initial post op visit, DOS 12/14/23) 12/16/2023 Travel 12/15/2023 Telephone [facility] [address] [place] [address] Gabriel Josue, DPM Surgical Followup 12/14/2023 9:15 AM SENIOR BEHAVIORAL SCIENTIST Office Visit [facility] [address] [facility] [place] [address] Gabriel Josue, DPM Surgery Scheduled 12/14/2023 Orders Only [facility] Scanner 1 scan: (1-Ord) CARMELO, AIMEE FOOT RT 2V, 12/14/2023 12/14/2023 Orders Only [facility] Scanner 1 scan: (1-Ord) [facility], PLANTAR FASCIOTOMY/METATARSAL OSTECTOMY, 12/14/2023 12/12/2023 Telephone [facility] [address] [place] [address] Gabriel Josue, ROSA ELENA Questions (SURGERY 12/14/2023 CHECK IN TIME ) 12/12/2023 Travel from Last 3 Months Immunizations Name [...] cm (5' 6) 11/23/2023 2:21 PM SENIOR BEHAVIORAL SCIENTIST Body Mass Index 39.38 11/23/2023 2:21 PM SENIOR BEHAVIORAL SCIENTIST Plan of Treatment Upcoming Encounters Date Type Department Care Team (Late st Contact Info) Description 03/29/2024 1:00 PM CDT Office Visit [facility] [address] [place] [address] Gabriel Josue DPM [address] [place] [address] Health Maintenance Due Date Last Done Comments [...] Comments SCAN-RADIOLOGY REPORT 12/14/2023 12:00 AM SENIOR BEHAVIORAL SCIENTIST SCAN-OPERATIVE/PROC EDURE REPORT 12/14/2023 12:00 AM SENIOR BEHAVIORAL SCIENTIST HPV THIN PREP Routine 10/21/2021 1:55 PM SENIOR BEHAVIORAL SCIENTIST from Last 3 Months or Most Recently Relevant to Health Maintenance Results * SCAN-RADIOLOGY REPORT (12/14/2023 12:00 AM SENIOR BEHAVIORAL SCIENTIST) Anatomical Region Laterality Modality Other Scanner OTHER * SCAN-OPERATIVE/PROCEDURE REPORT (12/14/2023 12:00 AM SENIOR BEHAVIORAL SCIENTIST) Scanner OTHER * HPV HIGH RISK (10/21/2021 1:55 PM SENIOR BEHAVIORAL SCIENTIST) TYPE 16 Negative Negative 10/22/2021 4:34 PM SENIOR BEHAVIORAL SCIENTIST [facility] TYPE 18 Negative Negative 10/22/2021 4:34 PM SENIOR BEHAVIORAL SCIENTIST [facility] OTHER HIGH RISK TYPES Negative Negative 10/22/2021 4:34 PM SENIOR BEHAVIORAL SCIENTIST [facility] Other (Cervical/Vagina l) 10/21/2021 1:55 PM SENIOR BEHAVIORAL SCIENTIST 10/22/2021 8:18 AM SENIOR BEHAVIORAL SCIENTIST Narrative [facility] - 10/22/2021 4:34 PM SENIOR BEHAVIORAL SCIENTIST HPV types 16, 18, 31, 33, 35, 39, 45, 51, 52, 56, 58, 59, 66 and 68 DNA were undetectable or below the pre-set threshold. Methodology: [employer] 4800 HPV Test Heaven Brunson PA-C [facility] [address] [place] [address], from Last 3 Months or Most Recently Relevant to Health Maintenance Care Teams Mail Teller Relationship Specialty Start Date End Date Heaven Brunson PA-C [address] [place] [address] PCP - General Emergency Medicine 02/04/22
--- OUTSIDE RECORDS SUMMARY | 2024-02-22 13:37 | XMS_ITS | Referral Summary ---
Author Name Unknown Organization [facility] Address [address] [place] [address] Care Team Providers Care Floral Manager Name Role Phone Heaven Brunson PA-C Primary Care Provider Allergies No known active allergies Medications Medication Sig Dispensed Refills Start Date End Date Status rizatriptan (MAXALT-DAY TRADER) 5 MG ODTIndications:Migra ine without aura and [...] Sex Assigned at Female 11/04/2018 8:36 AM FISH HATCHERY SPECIALIST Gender Identity Female 11/04/2018 8:36 AM FISH HATCHERY SPECIALIST Sexual Orientation Straight 11/04/2018 8: 36 AM FISH HATCHERY SPECIALIST Last Filed Vital Signs Vital Sign Reading Time Taken Comments Blood Pressure 132/83 07/03/2021 12:55 PM CDT Pulse 91 07/03/2021 12:55 PM CDT Temperature 36.4 ??C (97.6 ??F) 07/03/2021 12:55 PM C DT Respiratory Rate 15 10/30/2019 9:30 PM FISH HATCHERY SPECIALIST Oxygen Saturation 99% 10/30/2019 10:45 PM FISH HATCHERY SPECIALIST Inhaled Oxygen Concentration - - Weight 112 [...] PHQ9 SCORE 18 [facility] Nina - 05/16/2019 [facility] VISIT NOTE Provider Outside OTHER * Pap imaged thin layer diagnostic with HPV (select HPV order below) (07/27/2018 6:32 PM CDT) PAP NIL COPATH Copath Report Patient Name: CHRISTI FUCHS MR#: [id number] Specimen #: [id number] Collected: 07/27/2018 Received: 07/29/2018 Reported: 07/30/2018 13:12 [...] CIERA Larsen (ASCP) Processed and screened at [facility], [facility] CLINICAL HISTORY: Currently not having periods, Intra-Uterine Device, Previous ASC-US Date of Last Pap: 11/20/2016, Papanicolaou Test Limitations: ??Cervical cytology is a screening test with limited sensitivity; regular screening is critical for cancer prevention; Pap tests are primarily effective for the diagnosis/preventi on of squamous cell carcinoma, not adenocarcinomas or other cancers. TESTING LAB LOCATION: [address] ??[address] COLLECTION SITE: Client: ??[facility] Location: [facility] (R) COPATH Cytologic material (specimen) 07/27/2018 6:32 PM CDT 07/29/2018 10:09 AM CDT Andrez JACKSON - [employer] C LINICAL SPECIMEN COPATH from Last 3 Months or Most Recently Relevant to Health Maintenance Care Teams Floral Manager Relationship Specialty Start Date End Date Heaven Brunson PA-C [facility] [address] [place], [place] [id number] PCP - General Physician Genetics Physician 05/30/21
--- OUTSIDE RECORDS SUMMARY | 2024-02-22 13:37 | XMS_ITS | Encounter Summary ---
Author Name Unknown Organization [facility] Address [address] [place] [address] Care Team Providers Care Dumper Bulk System Name Role Phone KrauseAndrez baptiste PA-C Unavailable [phone] Mona Tian MD Unavailable [phone] Heaven Brunson PA-C Primary Care Provider Brett Torres MD Unavailable [phone] Karen Galvan PA-C Unavailable + [phone] Marie Lawrence [facility] Unavailable [phone] Encounter Details Date Type Department Care Team (Late st Contact Info) Description 06/05/2021 MyC Medical Advice [facility] [address] [facility] [address] [place] [address] Mendel Patricia Social History Tobacco [...] Sex Assigned at Female 11/04/2018 8:36 AM JAVA WEB ARCHITECT Gender Identity Female 11/04/2018 8:36 AM JAVA WEB ARCHITECT Sexual Orientation Straight 11/04/2018 8: 36 AM JAVA WEB ARCHITECT documented as of this encounter Plan of Treatment Not on file documented as of this encounter Visit Diagnoses Not on filedocumented in this encounter Additional Health Concerns Assessment Noted Time PHQ-9 Depression Total Score: 22 021 7:02 AM CDT documented as of this encounter Care Teams Dumper Bulk System Relationship Specialty Start Date End Date Heaven Brunson PA-C [facility] [address] [place] [address] PCP - General Physician Stadium Attendant 05/30/21 Andrez Krause PA-C [address] [place] [address] Assigned PCP 09/13/15 06/20/22 Mona Tian MD [address] [place] [address] Assigned OBGYN Provider 08/03/20 Brett Torres [facility] [address] [facility] [address] [place], [place] [address] Assigned Behavioral Health Provider 07/14/21 01/02/23 Karen Galvan PA-C [address] [facility] 103 [place] [address] Assigned Sleep Provider 09/01/21 Marie Lawrence, [facility] [address] [facility] [address] [place] [address] Assigned MTM Pharmacist 04/05/22 documented as of this encounter
--- OUTSIDE RECORDS SUMMARY | 2024-02-22 13:37 | XMS_ITS | Encounter Summary ---
Author Name Unknown Organization [facility] Address [address] [place] [address] Care Team Providers Care Career Technology Teacher Name Role Phone Andrez Krause PA-C Unavailable [phone] Heaven Brunson PA-C Primary Care Provider Brett Torres MD Unavailable [phone] Karen Galvan PA-C Unavailable + [phone] Marie Lawrence [facility] Unavailable [phone] Encounter Details Date Type Department Care Team (Late st Contact Info) Description 07/09/2021 MyC Medical Advice [facility] [address] [facility] [address] [place] [address] Mona Strauss RN Social History Tobacco Use Types Packs/Day Years Used Date Smoking Tobacco: Never Smokeless Tobacco: Never Alcohol Use Standard Drinks/Week Comments Yes 0 (1 standard drink = 0.6 oz pur e alcohol) Social, rare PHQ-2 Answer Date Recorded PHQ-2 Score 6 07/03/2021 Sex and Gender Information Value Date Recorded Sex Assigned at Female 11/04/2018 8:36 AM CAREER REPRESENTATIVE Gender Identity Female 11/04/2018 8:36 AM CAREER REPRESENTATIVE Sexual Orientation Straight 11/04/2018 8: 36 AM CAREER REPRESENTATIVE COVID-19 Exposure Response Date Recorded In the [...] documented as of this encounter Care Teams Career Technology Teacher Relationship Specialty Start Date End Date Heaven Brunson PA-C [facility] [address] [place] [address] PCP - General Physician Psychologist Experimental 05/30/21 Andrez Krause PA-C [address] [place] [address] Assigned PCP 09/13/15 06/20/22 Brett Torres [facility] [address] [facility] 255 [place], [place] [address] Assigned Behavioral Health Provider 07/14/21 01/02/23 Karen Galvan PA-C [address] [facility] 103 [place] [address] Assigned Sleep Provider 09/01/21 Marie Lawrence, [facility] [address] [facility] 200 [place], [place] [address] Assigned MTM Pharmacist 04/05/22 documented as of this encounter
--- OUTSIDE RECORDS SUMMARY | 2024-02-22 13:37 | XMS_ITS | Encounter Summary ---
Author Name Unknown Organization [facility] Address [address] [place] [address] Care Team Providers Care Merchandise Shopper Name Role Phone JimiAndrez PA-C Unavailable [phone] Heaven Brunson PA-C Primary Care Provider rBett Torres MD Unavailable [phone] Karen Galvan PA-C Unavailable + [phone] Marie Lawrence [facility] Unavailable Encounter Details Date Type Department Care Team (Late st Contact Info) Description 07/25/[address] [facility] [place] [id number] [address] Brett Torres [facility] [address] [place] [address] [address] [place] [address] Social History Tobacco Use Types Packs/Day Years Used Date Smoking Tobacco: Never Smokeless Tobacco: Never Alcohol Use Standard Drinks/Week Comments Yes 0 (1 standard drink = 0.6 oz pur e alcohol) Social, rare PHQ-2 Answer Date Recorded PHQ-2 Score 6 07/03/2021 Sex and Gender Information Value Date Recorded Sex Assigned at Female 11/04/2018 8:36 AM WINK CUTTER OPERATOR Gender Identity Female 11/04/2018 8:36 AM WINK CUTTER OPERATOR Sexual Orientation Straight 11/04/2018 8: 36 AM WINK CUTTER OPERATOR COVID-19 Exposure Response Date Recorded In [...] documented as of this encounter Care Teams Merchandise Shopper Relationship Specialty Start Date End Date Heaven Brunson PA-C [facility] [address] [place] [address] PCP - General Physician Mailhouse Operator 05/30/21 Andrez Krause PA-C [address] [place] [address] Assigned PCP 09/13/15 06/20/22 Brett Torres MD [facility] [address] [facility] [address] [place], [place] [address] Assigned Behavioral Health Provider 07/14/21 01/02/23 Karen Galvan PA-C 6[address] [facility] 103 [place] [address] Assigned Sleep Provider 09/01/21 Marie Lawrence, [facility] 57[address] [facility] 200 [place], [place] [address] Assigned MTM Pharmacist 04/05/22 documented as of this encounter
--- OUTSIDE RECORDS SUMMARY | 2024-02-22 13:37 | XMS_ITS | Encounter Summary ---
Author Name Unknown Organization [place] Address [address] [place] [address] Care Team Providers Care Candy Puller Name Role Phone Andrez Krause PA-C Primary Care Provider Andrez Krause PA-C Unavailable [phone] Mona Tian MD Unavailable [phone] Heaven Brunson PA-C Primary Care Provider Brett Torres MD Unavailable [phone] Karen Galvan PA-C Unavailable + [phone] Marie Lawrence [facility] Unavailable [phone] Reason for Visit * Reason Onset Date Comments Vaginal Problem 02/10/2020 bleeding Encounter Details Date Type Department Care Team (Late st Contact Info) Description 02/10/2020 [facility] Medical Advice [address] [address] Mona Tian MD [facility] [place] [address] Vaginal Problem (bleeding) Social History Tobacco Use Types Packs/Day Years Used Date Smoking Tobacco: Never Smokeless Tobacco: Never Alcohol Use Standard Drinks/Week Comments Yes 0 (1 standard drink = 0.6 oz pur e alcohol) Social, rare PHQ-2 Answer Date Recorded PHQ-2 Score 3 02/17/2019 Sex and Gender Information Value Date Recorded Sex Assigned at Female 11/04/2018 8:36 AM LINUX PROGRAMMER Gender Identity Female 11/04/2018 8:36 AM LINUX PROGRAMMER Sexual Orientation Straight 11/04/2018 8: 36 AM LINUX PROGRAMMER COVID-19 Exposure Response Date Recorded In the [...] documented as of this encounter Care Teams Candy Puller Relationship Specialty Start Date End Date Andrez Krause PA-C PCP - General Physician Dyer And Washer - Medical 10/09/15 05/29/21 Heaven Brunson PA-C [facility] [address] [place], [place] [address] PCP - General Physician Dyer And Washer 05/30/21 Andrez Krause PA-C [address] [place] [address] Assigned PCP 09/13/15 06/20/22 Mona Tian MD [address] [facility] [place] [address] Assigned OBGYN Provider 08/03/20 Brett Torres [facility] [address] [facility] [address] [place], [place] [address] Assigned Behavioral Health Provider 07/14/21 01/02/23 Karen Galvan PA-C [address] [facility] 103 [place] [address] Assigned Sleep Provider 09/01/21 Maire Lawrence, [facility] 57[address] [facility] 200 [place], [place] [address] Assigned MTM Pharmacist 04/05/22 documented as of this encounter
--- OUTSIDE RECORDS SUMMARY | 2024-02-22 13:37 | XMS_ITS | Encounter Summary ---
Author Name Unknown Organization [place] Address [address] [place] [address]. [place] [address] Care Team Providers Care Truck Loader And Unloader Name Role Phone Andrez Krause PA-C Primary Care Provider Andrez Krause PA-C Unavailable [phone] Mona Tian MD Unavailable [phone] Heaven Brunson PA-C Primary Care Provider Brett Torres MD Unavailable [phone] Karen Galvan PA-C Unavailable + [phone] [facility] Unavailable [phone] Encounter Details Date Type Department Care Team (Late st Contact Info) Description 01/23/2019 MyC Medical Advice [address], [address] [place] [address] Andrez Krause PA-C [address] [place] [address] Social History Tobacco Use Types Packs/Day Years Used Date Smoking Tobacco: Never Smokeless Tobacco: Never Alcohol Use Standard Drinks/Week Comments Yes 0 (1 standard drink = 0.6 oz pur e alcohol) Social, rare PHQ-2 Answer Date Recorded PHQ-2 Score 6 10/19/2018 Sex and Gender Information Value Date Recorded Sex Assigned at Female 11/04/2018 8:36 AM MINER PLACER Gender Identity Female 11/04/2018 8:36 AM MINER PLACER Sexual Orientation Straight 11/04/2018 8: 36 AM MINER PLACER documented as of this encounter Plan of Treatment Not on file documented as of this encounter Visit Diagnoses Not on filedocumented in this encounter Additional Health Concerns Assessment Noted Time PHQ-9 Depression Total Score: 019 5:05 PM MINER PLACER documented as of this encounter Care Teams Truck Loader And Unloader Relationship Specialty Start Date End Date Andrez Krause PA-C PCP - General Physician Web Art Director - Medical 10/09/15 05/29/21 Heaven Brunson PA-C [facility] [address] [place] [address] PCP - General Physician Web Art Director 05/30/21 Andrez Krause PA-C [address] [place] [address] Assigned PCP 09/13/15 06/20/22 Mona Tian MD [address] [place], [place] [address] Assigned OBGYN Provider 08/03/20 Brett Torres [facility] [address] [facility] 255 [place], [place] [address] Assigned Behavioral Health Provider 07/14/21 01/02/23 Karen Galvan PA-C 6363 [facility] 103 [place], [place] [address] Assigned Sleep Provider 09/01/[address] [facility] 57[address] [facility] 200 [place] [address] Assigned MTM Pharmacist 04/05/22 documented as of this encounter
--- OUTSIDE RECORDS SUMMARY | 2024-02-22 13:37 | XMS_ITS | Encounter Summary ---
Author Name Unknown Organization [place] Address [address] [place] [address] Care Team Providers Care Bean Picker Name Role Phone Andrez Krause PA-C Primary Care Provider Andrez Krause PA-C Unavailable [phone] Mona Tian MD Unavailable [phone] Heaven Brunson PA-C Primary Care Provider Brett Torres MD Unavailable [phone] Karen Galvan PA-C Unavailable + [phone] Marie Lawrence [facility] Unavailable [phone] Encounter Details Date Type Department Care Team (Late st Contact Info) Description 04/01/2019 MyC Medical Advice [facility] [address] [place] [address] Tadeo Wilks MD [address] [facility] 100 [address] [place] [address] Social History Tobacco Use Types Packs/Day Years Used Date Smoking Tobacco: Never Smokeless Tobacco: Never Alcohol Use Standard Drinks/Week Comments Yes 0 (1 standard drink = 0.6 oz pur e alcohol) Social, rare PHQ-2 Answer Date Recorded PHQ-2 Score 3 02/17/2019 Sex and Gender Information Value Date Recorded Sex Assigned at Female 11/04/2018 8:36 AM FACILITIES MAINTENANCE TECHNICIAN Gender Identity Female 11/04/2018 8:36 AM FACILITIES MAINTENANCE TECHNICIAN Sexual Orientation Straight 11/04/2018 8: 36 AM FACILITIES MAINTENANCE TECHNICIAN documented as of this encounter Plan of Treatment Not on file documented as of this encounter Visit Diagnoses Not on filedocumented in this encounter Additional Health Concerns Assessment Noted Time PHQ-9 Depression Total Score: 17 019 8:25 AM CDT documented as of this encounter Care Teams Bean Picker Relationship Specialty Start Date End Date Andrez Krause PA-C PCP - General Physician Sack Repairer - Medical 10/09/15 05/29/21 Heaven Brunson PA-C [facility] [address] [place], [place] [address] PCP - General Physician Sack Repairer 05/30/21 Andrez Krause PA-C [address] [place] [address] Assigned PCP 09/13/15 06/20/22 Mona Tian MD [address] [place], [place] [address] Assigned OBGYN Provider 08/03/20 Brett Torres [facility] [address] [facility] 255 [place], [place] [address] Assigned Behavioral Health Provider 07/14/21 01/02/23 Karen Galvan PA-C 6363 [facility] 103 [place], [place] [address] Assigned Sleep Provider 09/01/21 Marie Lawrence [facility] [address] [facility] 200 [place] [address] Assigned MTM Pharmacist 04/05/22 documented as of this encounter
--- OUTSIDE RECORDS SUMMARY | 2024-02-22 13:37 | XMS_ITS | Encounter Summary ---
Author Name Unknown Organization [facility] Address [address] [place] [address] Care Team Providers Care Job Interviewer Name Role Phone Andrez Krause PA-C Primary Care Provider Andrez Krause PA-C Unavailable [phone] Andrez Krause PA-C Unavailable [phone] Mona Tian MD Unavailable [phone] Heaven Brunson PA-C Primary Care Provider Brett Torres MD Unavailable [phone] Karen Galvan PA-C Unavailable [phone] Marie Lawrence [facility] Unavailable [phone] Encounter Details Date Type Department Care Team (Late st Contact Info) Description 12/11/2018 MyC Medical Advice [facility] [address] [place] [address] Josefina Diop, SIX SIGMA BLACK TRAINER PEDIATRIC UROLOGIST [address] [place] [address] [address] [place] [address] Social History Tobacco Use Types Packs/Day Years Used Date Smoking Tobacco: Never Smokeless Tobacco: Never Alcohol Use Standard Drinks/Week Comments Yes 0 (1 standard drink = 0.6 oz pur e alcohol) Social, rare PHQ-2 Answer Date Recorded PHQ-2 Score 6 10/19/2018 Sex and Gender Information Value Date Recorded Sex Assigned at Female 11/04/2018 8:36 AM BUSINESS ACCOUNT SPECIALIST Gender Identity Female 11/04/2018 8:36 AM BUSINESS ACCOUNT SPECIALIST Sexual Orientation Straight 11/04/2018 8: 36 AM BUSINESS ACCOUNT SPECIALIST documented as of this encounter Plan of Treatment Not on file documented as of this encounter Visit Diagnoses Not on filedocumented in this encounter Additional Health Concerns Assessment Noted Time PHQ-9 Depression Total Score: 21 019 5:05 PM BUSINESS ACCOUNT SPECIALIST documented as of this encounter Care Teams Job Interviewer Relationship Specialty Start Date End Date Andrez Krause PA-C PCP - General Physician Sharepoint Solutions Architect - Medical 10/09/15 05/29/21 Andrez Krause PA-C [address] [place] [address] PCP - Assigned PCP 09/13/15 12/14/18 Heaven Brunson PA-C [facility] [address] [place] [address] PCP - General Physician Sharepoint Solutions Architect 05/30/21 Andrez Krause PA-C [address] [place] [address] Assigned PCP 09/13/15 06/20/22 Mona Tian MD [address] [place] [address] Assigned OBGYN Provider 08/03/20 Brett Torres [facility] [address] [address] Assigned Behavioral Health Provider 07/14/21 01/02/23 Karen Galvan PA-C [address] [place] [address] Assigned Sleep Provider 09/01/21 Marie Lawrence, [facility] 57[address] [facility] 200 [place], [place] [address] Assigned MTM Pharmacist 04/05/22 documented as of this encounter
--- OUTSIDE RECORDS SUMMARY | 2024-02-22 13:37 | XMS_ITS | Encounter Summary ---
Author Name Unknown Organization [place] Address [address] [place] [address] Care Team Providers Care Process Consultant Name Role Phone Andrez Krause PA-C Primary Care Provider Andrez Krause PA-C Unavailable [phone] Mona Tian MD Unavailable [phone] Heaven Brunson PA-C Primary Care Provider Brett Torres MD Unavailable [phone] Karen Galvan PA-C Unavailable [phone] Marie Lawrence [facility] Unavailable [phone] Reason for Visit * Reason Onset Date Comments Refill Request 01/10/2019 Emgality Encounter Details Date Type Department Care Team (Late st Contact Info) Description 01/10/2019 MyC Medical Advice [address], [address] [place] [address] Andrez Krause PA-C [address] [place] [address] Refill Request (Emgality) Social History Tobacco Use Types Packs/Day Years Used Date Smoking Tobacco: Never Smokeless Tobacco: Never Alcohol Use Standard Drinks/Week Comments Yes 0 (1 standard drink = 0.6 oz pur e alcohol) Social, rare PHQ-2 Answer Date Recorded PHQ-2 Score 6 10/19/2018 Sex and Gender Information Value Date Recorded Sex Assigned at Female 11/04/2018 8:36 AM CRIME SCENE EVIDENCE TECHNICIAN Gender Identity Female 11/04/2018 8:36 AM CRIME SCENE EVIDENCE TECHNICIAN Sexual Orientation Straight 11/04/2018 8: 36 AM CRIME SCENE EVIDENCE TECHNICIAN documented as of this encounter Miscellaneous [...] (EMGALITY) 120 MG/ML injection Class: E-Prescribe Order: [id number] E-Prescribing Status: Receipt confirmed by pharmacy (12/16/2018 12:57 PM CRIME SCENE EVIDENCE TECHNICIAN) Last OV 2.14.19 for migraine, received Toradol inj and prednisone Andrez Krause PA-C Physician Group Leader Wafer Polishing Signed Creation Time: 12/16/2018 12:56 PM OK, first dose is to do 240mg followed by 120mg monthly after that. I'll do the first Rx now. ?? Thanks! Nalini Bunn, RN Registered Nurse Signed Creation Time: 12/16/2018 12:06 PM Please approve rx for EMGALITY as patient is willing to give it a try. She will pepper picker the card to you have provider for the 12 month free. ?? Nalini Conte RN LM for pt to schedule appt with provider to review medication Geraldine Chavarria RN, BS Clinical Nurse Triage. * Telephone Encounter - Jeanne Phillips MD - 01/10/2019 9:35 AM CDT She has not see the provider for this rx. She ordered via [employer] about 1 month ago. [facility] Thank you * Telephone Encounter - Nalini Conte RN - 01/10/2019 8:52 AM CDT Emgality 120mg/ml Last Written Prescription Date: 12/16/2018 Last Fill Quantity: 2ml, # refills: 0 Last Office Visit: 11/25/2018 Future Office visit: Routing refill request to provider for review/approval because: Drug not on the G, P or [facility] refill protocol or controlled substance [...] PHQ-9 Depression Total Score: 019 5:05 PM CRIME SCENE EVIDENCE TECHNICIAN documented as of this encounter Care Teams Process Consultant Relationship Specialty Start Date End Date Andrez Krause PA-C PCP - General Physician Group Leader Wafer Polishing - Medical 10/09/15 05/29/21 Heaven Brunson PA-C [facility] [address] [place] [address] PCP - General Physician Group Leader Wafer Polishing 05/30/21 Andrez Krause PA-C [address] [place] [address] Assigned PCP 09/13/15 06/20/22 Mona Tian MD [address] [place], [place] [address] Assigned OBGYN Provider 08/03/20 Brett Torres [facility] [address] [facility] 255 [place] [address] Assigned Behavioral Health Provider 07/14/21 01/02/23 Karen Galvan PA-C [address] [facility] 103 [place], [place] [address] Assigned Sleep Provider 09/01/21 Marie Lawrence, [facility] 57[address] [facility] 200 [place] [address] Assigned MTM Pharmacist 04/05/22 documented as of this encounter
--- OUTSIDE RECORDS SUMMARY | 2024-02-22 13:37 | XMS_ITS | Encounter Summary ---
Author Name Unknown Organization [place] Address [address] [place] [address] Care Team Providers Care Clothes Separator Name Role Phone JimiAndrez PA-C Unavailable [phone] Heaven Brunson PA-C Primary Care Provider Brett Torres MD Unavailable [phone] Karen Galvan PA-C Unavailable [phone] Marie Lawrence [facility] Unavailable Encounter Details Date Type Department Care Team (Late st Contact Info) Description 07/03/2021 MyC Medical Advice [facility] [address] [facility] [address] [place] [address] Brett Torres [facility] [address] [facility] [place] [address] Social History Tobacco Use Types Packs/Day Years Used Date Smoking Tobacco: Never Smokeless Tobacco: Never Alcohol Use Standard Drinks/Week Comments Yes 0 (1 standard drink = 0.6 oz pur e alcohol) Social, rare PHQ-2 Answer Date Recorded PHQ-2 Score 6 07/03/2021 Sex and Gender Information Value Date Recorded Sex Assigned at Female 11/04/2018 8:36 AM BELL CLERK Gender Identity Female 11/04/2018 8:36 AM BELL CLERK Sexual Orientation Straight 11/04/2018 8: 36 AM BELL CLERK COVID-19 Exposure Response Date Recorded In the [...] documented as of this encounter Care Teams Clothes Separator Relationship Specialty Start Date End Date Heaven Brunson PA-C [facility] [address] [place] [address] PCP - General Physician Heat Sealing Machine Operator 05/30/21 Andrez Krause PA-C [address] [facility] [address] Assigned PCP 09/13/15 06/20/22 Brett Torres [facility] [address] [facility] [address] [place], [place] [address] Assigned Behavioral Health Provider 07/14/21 01/02/23 Karen Galvan PA-C [address] [facility] 103 [place], [place] [address] Assigned Sleep Provider 09/01/21 Marie Lawrence, [facility] [address] [facility] [address] [place] [address] Assigned MTM Pharmacist 04/05/22 documented as of this encounter
--- OUTSIDE RECORDS SUMMARY | 2024-02-22 13:37 | XMS_ITS | Encounter Summary ---
Author Name Unknown Organization [facility] Address [address] [place] [address] Care Team Providers Care Senior Publications Specialist Name Role Phone Andrez Krause PA-C Primary Care Provider Andrez Krause PA-C Unavailable + [phone] Andrez Krause PA-C Unavailable + [phone] Mona Tian MD Unavailable [phone] Heaven Brunson PA-C Primary Care Provider Brett Torres MD Unavailable [phone] Karen Galvan PA-C Unavailable + [phone] Marie Lawrence [facility] Unavailable [phone] Reason for Visit * Reason Onset Date Comments Forms 12/13/2018 Unemployment Encounter Details Date Type Department Care Team (Late st Contact Info) Description 12/13/2018 MyC Medical Advice [address], [address] [place] [address] Andrez Krause PA-C [address] [place] [address] Forms (Unemployment) Social History Tobacco Use Types Packs/Day Years Used Date Smoking Tobacco: Never Smokeless Tobacco: Never Alcohol Use Standard Drinks/Week Comments Yes 0 (1 standard drink = 0.6 oz pur e alcohol) Social, rare PHQ-2 Answer Date Recorded PHQ-2 Score 6 10/19/2018 Sex and Gender Information Value Date Recorded Sex Assigned at Female 11/04/2018 8:36 AM SEARCH ENGINE OPTIMIZATION STRATEGIST Gender Identity Female 11/04/2018 8:36 AM SEARCH ENGINE OPTIMIZATION STRATEGIST Sexual Orientation Straight 11/04/2018 8: 36 AM SEARCH ENGINE OPTIMIZATION STRATEGIST documented as of this encounter Miscellaneous Notes * Telephone Encounter - Andrez Krause PA-C - 12/16/2018 12:56 PM SEARCH ENGINE OPTIMIZATION STRATEGIST OK, first dose is to do 240mg followed by 120mg monthly after that. I'll do the first Rx now. Thanks! Andrez CH ENGINE OPTIMIZATION STRATEGIST * Telephone Encounter - Nalini Conte RN - 12/16/2018 12:06 PM CST Please approve rx for EMGALITY as patient is willing to give it a try. She will garbage pick up man the card to you have provider for the 12 month free. Nalini Conte RN CH ENGINE OPTIMIZATION STRATEGIST * Telephone Encounter - Nalini Conte RN - 12/16/2018 11:28 AM CST Form faxed to [phone]. Copy placed in abstracting. Original in my in-basket waiting for patient to let us know if she would like to garbage pick up man copy of have us mail it to her. I also have the Emgality Savings Card for patient in my in-basket if patient is interested in it. Waiting for patient to let us know about this as well. Nalini Conte RN CH ENGINE OPTIMIZATION STRATEGIST * Telephone Encounter - Andrez Krause PA-C - 12/15/2018 2:39 PM SEARCH ENGINE OPTIMIZATION STRATEGIST OK, Ill get it signed. Andrez CH ENGINE OPTIMIZATION STRATEGIST * Telephone Encounter - Nalini Conte RN - 12/15/2018 1:20 PM CST This message was not routed to you as there was already a phone message created for the form. This is NOT a permanent disability from what I can see. Nalini Conte, RN CH ENGINE OPTIMIZATION STRATEGIST * Telephone Encounter - Andrez Krause PA-C - 12/15/2018 12:52 PM SEARCH ENGINE OPTIMIZATION STRATEGIST Hey! I see this in my actual basket now, but was it routed to me? I'm not signing for any permamentdisability am I? Just for dates gone at this point? Just wondering when looking at the form.... I can sign it otherwise and she can pick it up LYSSA. Andrez CH ENGINE OPTIMIZATION STRATEGIST documented in this encounter Plan of Treatment Not on file documented as of this encounter Visit Diagnoses Diagnosis Migraine without aura and without status migrainosus, not intractable- Primary Migraine without aura, without mention of intractable migraine without mention of status migrainosus documented in this encounter Additional Health Concerns Assessment Noted Time PHQ-9 Depression Total Score: 019 5:05 PM SEARCH ENGINE OPTIMIZATION STRATEGIST documented as of this encounter Care Teams Senior Publications Specialist Relationship Specialty Start Date End Date Andrez Krause PA-C PCP - General Physician Evs Tech - Medical 10/09/15 05/29/21 Andrez Krause PA-C [address] [place] [address] PCP - Assigned PCP 09/13/15 12/14/18 Heaven Brunson PA-C [facility] [address] [place] [address] PCP - General Physician Evs Tech 05/30/21 Andrez Krause PA-C [address] [place] [address] Assigned PCP 09/13/15 06/20/22 Mona Tian MD [address] [place] [address] Assigned OBGYN Provider 08/03/20 Brett Torres [facility] [address] [facility] 255 [place], [place] [address] Assigned Behavioral Health Provider 07/14/21 01/02/23 Karen Galvan PA-C [address] [facility] 103 [place] [address] Assigned Sleep Provider 09/01/21 Marie Lawrence, [facility] 57[address] [facility] 200 [place] [address] Assigned MTM Pharmacist 04/05/22 documented as of this encounter
--- OUTSIDE RECORDS SUMMARY | 2024-02-22 13:37 | XMS_ITS | Encounter Summary ---
Author Name Unknown Organization [place] Address [address] [place] [address] Care Team Providers Care Database Marketing Manager Name Role Phone Andrez Krause PA-C Primary Care Provider Andrez Krause PA-C Unavailable [phone] Mona Tian MD Unavailable [phone] Heaven Brunson PA-C Primary Care Provider Brett Torres MD Unavailable [phone] Karen Galvan PA-C Unavailable + [phone] Marie Lawrence [facility] Unavailable [phone] Reason for Visit * Reason Onset Date Comments Headache 03/20/2019 Encounter Details Date Type Department Care Team (Late st Contact Info) Description 03/20/2019 MyC Medical Advice [facility] [address] [place] [address] Tadeo Wilks MD [address] [facility] [address] [place], [place] [id number] Headache Social History Tobacco Use Types Packs/Day Years Used Date Smoking Tobacco: Never Smokeless Tobacco: Never Alcohol Use Standard Drinks/Week Comments Yes 0 (1 standard drink = 0.6 oz pur e alcohol) Social, rare PHQ-2 Answer Date Recorded PHQ-2 Score 3 02/17/2019 Sex and Gender Information Value Date Recorded Sex Assigned at Female 11/04/2018 8:36 AM MOLDING MANAGER Gender Identity Female 11/04/2018 8:36 AM MOLDING MANAGER Sexual Orientation Straight 11/04/2018 8: 36 AM MOLDING MANAGER documented as of this encounter Miscellaneous Notes [...] surgeries Tammie Pryor R.N. [facility] documented in this encounter Plan of Treatment Not on file documented as of this encounter Visit Diagnoses Not on filedocumented in this encounter Additional Health Concerns Assessment Noted Time PHQ-9 Depression Total Score: 17 019 8:25 AM CDT documented as of this encounter Care Teams Database Marketing Manager Relationship Specialty Start Date End Date Andrez Krause PA-C PCP - General Physician Medical Assembler - Medical 10/09/15 05/29/21 Heaven Brunson PA-C [facility] [address] [place] [address] PCP - General Physician Medical Assembler 05/30/21 Andrez Krause PA-C [address] [place] [address] Assigned PCP 09/13/15 06/20/22 Mona Tian MD [address] [place] [address] Assigned OBGYN Provider 08/03/20 Brett Torres [facility] [address] [facility] 255 [place], [place] [address] Assigned Behavioral Health Provider 07/14/21 01/02/23 Karen Galvan PA-C [address] [facility] 103 [place] [address] Assigned Sleep Provider 09/01/21 Marie Lawrence, [facility] 5775 [facility] 200 [place], [place] [id number] Assigned MTM Pharmacist 04/05/22 documented as of this encounter
--- OUTSIDE RECORDS SUMMARY | 2024-02-22 13:37 | XMS_ITS | Encounter Summary ---
Author Name Unknown Organization [facility] Address [address] [place] [address] Care Team Providers Care Aws Architect Name Role Phone Andrez Krause PA-C Primary Care Provider Andrez Krause PA-C Unavailable [phone] Mona Tian MD Unavailable [phone] Heaven Brunson PA-C Primary Care Provider Brett Torres MD Unavailable [phone] Karen Galvan PA-C Unavailable + [phone] Marie Lawrence [facility] Unavailable [phone] Encounter Details Date Type Department Care Team [...] Sex Assigned at Female 11/04/2018 8:36 AM RETAIL LEADER Gender Identity Female 11/04/2018 8:36 AM RETAIL LEADER Sexual Orientation Straight 11/04/2018 8: 36 AM RETAIL LEADER documented as of this encounter Plan of Treatment Not on file documented as of this encounter Visit Diagnoses Not on filedocumented in this encounter Additional Health Concerns Assessment Noted Time PHQ-9 Depression Total Score: 23 05/05/2 019 9:13 AM CDT documented as of this encounter Care Teams Aws Architect Relationship Specialty Start Date End Date Andrez Krause PA-C PCP - General Physician Tie Cutter - Medical 10/09/15 05/29/21 Heaven Brunson PA-C [facility] [address] [place] [address] PCP - General Physician Tie Cutter 05/30/21 Andrez Krause PA-C [address] [facility] [place] [address] Assigned PCP 09/13/15 06/20/22 Mona Tian MD [address] [place], [place] [address] Assigned OBGYN Provider 08/03/20 Brett Torres [facility] [address] [facility] 255 [place], [place] [address] Assigned Behavioral Health Provider 07/14/21 01/02/23 Karen Galvan PA-C [address] [facility] 103 [place], [place] [address] Assigned Sleep Provider 09/01/21 Marie Lawrence, [facility] 5775 [facility] 200 [place] [address] Assigned MTM Pharmacist 04/05/22 documented as of this encounter
--- OUTSIDE RECORDS SUMMARY | 2024-02-22 13:37 | XMS_ITS | Encounter Summary ---
Author Name Unknown Organization [place] Address [address] [place] [address] Care Team Providers Care Hydrostatic Tester Name Role Phone Andrez Krause PA-C Unavailable + [phone] Heaven Brunson PA-C Primary Care Provider Brett Torres MD Unavailable [phone] Karen Galvan PA-C Unavailable + [phone] Marie Lawrence [facility] Unavailable Encounter Details Date Type Department Care Team (Late st Contact Info) Description 12/04/2021 [facility] Medical Advice [facility] [address] [facility] [address] [place] [address] Mona Strauss RN Social History Tobacco Use Types Packs/Day Years Used Date Smoking Tobacco: Never Smokeless Tobacco: Never Alcohol Use Standard Drinks/Week Comments Yes 0 (1 standard drink = 0.6 oz pur e alcohol) Social, rare PHQ-2 Answer Date Recorded PHQ-2 Score 6 07/03/2021 Sex and Gender Information Value Date Recorded Sex Assigned at Female 11/04/2018 8:36 AM HEEL NAIL RASPER Gender Identity Female 11/04/2018 8:36 AM HEEL NAIL RASPER Sexual Orientation Straight 11/04/2018 8: 36 AM HEEL NAIL RASPER documented as of this encounter Plan of Treatment Not on file documented as of this encounter Visit Diagnoses Not on filedocumented in this encounter Additional Health Concerns Assessment Noted Time PHQ-9 Depression Total Score: 24 021 12:59 PM CDT documented as of this encounter Care Teams Hydrostatic Tester Relationship Specialty Start Date End Date Heaven Brunson PA-C [facility] [address] [place] [address] PCP - General Physician Damage Assessor 05/30/21 Andrez Krause PA-C [address] [place] [address] Assigned PCP 09/13/15 06/20/22 Brett Torres [facility] [address] [facility] 255 [place], [place] [address] Assigned Behavioral Health Provider 07/14/21 01/02/23 Karen Galvan PA-C [address] [facility] 103 [place] [address] Assigned Sleep Provider 09/01/21 Marie Lawrence, [facility] 5775 [facility] 200 [place], [place] [address] Assigned MTM Pharmacist 04/05/22 documented as of this encounter
--- OUTSIDE RECORDS SUMMARY | 2024-02-22 13:37 | XMS_ITS | Encounter Summary ---
Author Name Unknown Organization [facility] Address [address] [place] [address] Care Team Providers Care Photocopy Operator Name Role Phone Andrez Krause PA-C Primary Care Provider Andrez Krause PA-C Unavailable [phone] Mona Tian MD Unavailable [phone] Heaven Brunson PA-C Primary Care Provider Brett Torres MD Unavailable [phone] Karen Galvan PA-C Unavailable + [phone] [facility] Unavailable [phone] Encounter Details Date Type Department Care Team (Late st Contact Info) Description 07/13/2020 [facility] Medical [facility] [address] [address] [facility] Social History Tobacco Use Types Packs/Day Years Used Date Smoking Tobacco: Never Smokeless Tobacco: Never Alcohol Use Standard Drinks/Week Comments Yes 0 (1 standard drink = 0.6 oz pur e alcohol) Social, rare PHQ-2 Answer Date Recorded PHQ-2 Score 3 02/17/2019 Sex and Gender Information Value Date Recorded Sex Assigned at Female 11/04/2018 8:36 AM HOUSECLEANER Gender Identity Female 11/04/2018 8:36 AM HOUSECLEANER Sexual Orientation Straight 11/04/2018 8: 36 AM HOUSECLEANER documented as of this encounter Plan of Treatment Not on file documented as of this encounter Visit Diagnoses Not on filedocumented in this encounter Additional Health Concerns Assessment Noted Time PHQ-9 Depression Total Score: 23 2 019 9:13 AM CDT documented as of this encounter Care Teams Photocopy Operator Relationship Specialty Start Date End Date Andrez Krause PA-C PCP - General Physician Educational Adviser - Medical 10/09/15 05/29/21 Heaven Brunson PA-C [facility] [address] [place] [address] PCP - General Physician Educational Adviser 05/30/21 Andrez Krause PA-C [address] [place] [address] Assigned PCP 09/13/15 06/20/22 Mona Tian MD [address] [place] [address] Assigned OBGYN Provider 08/03/20 Brett Torres [facility] [address] [facility] [address] [place], [place] [address] Assigned Behavioral Health Provider 07/14/21 01/02/23 Karen Galvan PA-C 6363 [facility] 103 [place] [address] Assigned Sleep Provider 09/01/[address] [facility] 5775 [facility] 200 [place], [place] [address] Assigned MTM Pharmacist 04/05/22 documented as of this encounter
--- OUTSIDE RECORDS SUMMARY | 2024-02-22 13:37 | XMS_ITS | Encounter Summary ---
Author Name Unknown Organization [place] Address [address] [place] [address] Care Team Providers Care Bill Board Poster Name Role Phone Andrez Krause PA-C Unavailable + [phone] Mona Tian MD Unavailable [phone] Heaven Brunson PA-C Primary Care Provider Brett Torres MD Unavailable [phone] Karen Galvan PA-C Unavailable + [phone] Marie Lawrence [facility] Unavailable [phone] Encounter Details Date Type Department Care Team [...] Sex Assigned at Female 11/04/2018 8:36 AM WAFER FABRICATION OPERATOR Gender Identity Female 11/04/2018 8:36 AM WAFER FABRICATION OPERATOR Sexual Orientation Straight 11/04/2018 8: 36 AM WAFER FABRICATION OPERATOR documented as of this encounter Plan of Treatment Not on file documented as of this encounter Visit Diagnoses Not on filedocumented in this encounter Additional Health Concerns Assessment Noted Time PHQ-9 Depression Total Score: 23 021 9:44 AM CDT documented as of this encounter Care Teams Bill Board Poster Relationship Specialty Start Date End Date Heaven Brunson PA-C [facility] [address] [place] [address] PCP - General Physician Test Automation Architect 05/30/21 Andrez Krause PA-C [address] [facility] [place] [address] Assigned PCP 09/13/15 06/20/22 Mona Tian MD [address] [facility] [place] [address] Assigned OBGYN Provider 08/03/20 Brett Torres [facility] [address] [facility] 255 [place], [place] [address] Assigned Behavioral Health Provider 07/14/21 01/02/23 Karen Galvan PA-C [address] [facility] 103 [place] [address] Assigned Sleep Provider 09/01/21 Marie Lawrence, [facility] 5775 [facility] 200 [place], [place] [address] Assigned MTM Pharmacist 04/05/22 documented as of this encounter
--- OUTSIDE RECORDS SUMMARY | 2024-02-22 13:37 | XMS_ITS | Encounter Summary ---
Author Name Unknown Organization [facility] Address [address] [place] [address] Care Team Providers Care Supervisor Pullet Farm Name Role Phone Andrez Krause PA-C Primary Care Provider Andrez Krause PA-C Unavailable [phone] Mona Tian MD Unavailable [phone] Heaven Brunson PA-C Primary Care Provider Brett Torres MD Unavailable [phone] Karen Galvan PA-C Unavailable + [phone] [facility] Unavailable [phone] Reason for Visit * Reason Onset Date Comments Medication Question 07/02/2020 Encounter Details Date Type Department Care Team (Late st Contact Info) Description 07/02/2020 [facility] Medical Advice [address] [address] Mona Tian MD [facility] [place] [address] Medication Question Social History Tobacco Use Types Packs/Day Years Used Date Smoking Tobacco: Never Smokeless Tobacco: Never Alcohol Use Standard Drinks/Week Comments Yes 0 (1 standard drink = 0.6 oz pur e alcohol) Social, rare PHQ-2 Answer Date Recorded PHQ-2 Score 3 02/17/2019 Sex and Gender Information Value Date Recorded Sex Assigned at Female 11/04/2018 8:36 AM SNOWMOBILE MECHANIC Gender Identity Female 11/04/2018 8:36 AM SNOWMOBILE MECHANIC Sexual Orientation Straight 11/04/2018 8: 36 AM SNOWMOBILE MECHANIC documented as of this encounter Miscellaneous [...] as of this encounter Care Teams Supervisor Pullet Farm Relationship Specialty Start Date End Date Andrez Kraues PA-C PCP - General Physician Handbag Parts Cutter - Medical 10/09/15 05/29/21 Heaven Brunson PA-C [facility] [address] [place] [address] PCP - General Physician Handbag Parts Cutter 05/30/21 Andrez Krause PA-C [address] [place] [address] Assigned PCP 09/13/15 06/20/22 Mona Tian MD [address] [place] [address] Assigned OBGYN Provider 08/03/20 Bertt Torres [facility] 57208 [facility] 255 [place], [place] [address] Assigned Behavioral Health Provider 07/14/21 01/02/23 Karen Galvan PA-C 6363 [facility] 103 [place] [address] Assigned Sleep Provider 09/01/21 Marie Lawrence, [facility] 5775 [facility] 200 [place], [place] [address] Assigned MTM Pharmacist 04/05/22 documented as of this encounter
--- OUTSIDE RECORDS SUMMARY | 2024-02-22 13:37 | XMS_ITS | Encounter Summary ---
Author Name Unknown Organization [facility] Address [address] [place] [address] Care Team Providers Care Desk Pen Set Assembler Name Role Phone Andrez Krause PA-C Primary Care Provider Andrez Krause PA-C Unavailable [phone] Mona Tian MD Unavailable [phone] Heaven Brunson PA-C Primary Care Provider Brett Torres MD Unavailable [phone] Karen Galvan PA-C Unavailable + [phone] Marie Lawrence [facility] Unavailable [phone] Reason for Visit * Reason Onset Date Comments Medication Refill 04/06/2019 venlafaxine (E FFEXOR-XR) 75 MG 24 hr capsule Encounter Details Date Type Department Care Team (Late st Contact Info) Description 04/05/[address], [address] [place] [address] Andrez Krause PA-C [address] [place] [address] Medication Refill (venlafaxine (EFFEXOR-XR) 75 [...] Sex Assigned at Female 11/04/2018 8:36 AM TAX SERVICES SPECIALIST Gender Identity Female 11/04/2018 8:36 AM TAX SERVICES SPECIALIST Sexual Orientation Straight 11/04/2018 8: 36 AM TAX SERVICES SPECIALIST documented as of this encounter Miscellaneous Notes [...] documented as of this encounter Care Teams Desk Pen Set Assembler Relationship Specialty Start Date End Date Andrez Krause PA-C PCP - General Physician Commercial Lines Account Executive - Medical 10/09/15 05/29/21 Heaven Brunson PA-C [facility] [address] [place] [address] PCP - General Physician Commercial Lines Account Executive 05/30/21 Andrez Krause PA-C [address] [place] [address] Assigned PCP 09/13/15 06/20/22 Mona Tian MD [address] [place], [place] [address] Assigned OBGYN Provider 08/03/20 Brett Torres MD [facility] 255 [place] [address] Assigned Behavioral Health Provider 07/14/21 01/02/23 Karen Galvan PA-C [address] [facility] 103 [place] [address] Assigned Sleep Provider 09/01/21 Marie Lawrence, [facility] 5775 [facility] 200 [place] [address] Assigned MTM Pharmacist 04/05/22 documented as of this encounter
--- OUTSIDE RECORDS SUMMARY | 2024-02-22 13:37 | XMS_ITS | Encounter Summary ---
Author Name Unknown Organization [facility] Address [address] [place] [address] Care Team Providers Care Nut Process Helper Name Role Phone Andrez Krause PA-C Unavailable + [phone] Heaven Brunson PA-C Primary Care Provider Brett Torres MD Unavailable [phone] Karen Galvan PA-C Unavailable [phone] Marie Lawrence [facility] Unavailable [phone] Encounter Details Date Type Department Care Team (Late st Contact Info) Description 08/20/2021 [facility] Medical Advice [address] [address] Molly Hinson, [facility] Social History Tobacco Use Types Packs/Day Years Used Date Smoking Tobacco: Never Smokeless Tobacco: Never Alcohol Use Standard Drinks/Week Comments Yes 0 (1 standard drink = 0.6 oz pur e alcohol) Social, rare PHQ-2 Answer Date Recorded PHQ-2 Score 6 07/03/2021 Sex and Gender Information Value Date Recorded Sex Assigned at Female 11/04/2018 8:36 AM AFFILIATE MANAGER Gender Identity Female 11/04/2018 8:36 AM AFFILIATE MANAGER Sexual Orientation Straight 11/04/2018 8: 36 AM AFFILIATE MANAGER documented as of this encounter Plan of Treatment Not on file documented as of this encounter Visit Diagnoses Not on filedocumented in this encounter Additional Health Concerns Assessment Noted Time PHQ-9 Depression Total Score: 24 021 12:59 PM CDT documented as of this encounter Care Teams Nut Process Helper Relationship Specialty Start Date End Date Heaven Brunson PA-C [facility] [address] [place] [address] PCP - General Physician Clearance Cutter 05/30/21 Andrez Krause PA-C [address] [place] [address] Assigned PCP 09/13/15 06/20/22 Brett Torres MD [facility] 37890 [facility] 255 [place] [address] Assigned Behavioral Health Provider 07/14/21 01/02/23 Karen Galvan PA-C [address] [facility] 103 [place], [place] [address] Assigned Sleep Provider 09/01/21 Marie Lawrence, [facility] 5775 [facility] 200 [place] [address] Assigned MTM Pharmacist 04/05/22 documented as of this encounter
--- OUTSIDE RECORDS SUMMARY | 2024-02-22 13:37 | XMS_ITS | Encounter Summary ---
Author Name Unknown Organization [facility] Address [address] [place] [address]. [place] [address] Care Team Providers Care Bindery Cutter Operator Name Role Phone Andrez Krause PA-C Primary Care Provider Andrez Krause PA-C Unavailable [phone] Mona Tian MD Unavailable [phone] Heaven Brunson PA-C Primary Care Provider Brett Torres MD Unavailable [phone] Karen Galvan PA-C Unavailable + [phone] Marie Lawrence [facility] Unavailable [phone] Encounter Details Date Type Department Care Team (Late st Contact Info) Description 12/22/2019 [facility] Medical Advice [address], [address] [place] [address] Andrez Krause PA-C [address] [place] [address] Social History Tobacco Use Types Packs/Day Years Used Date Smoking Tobacco: Never Smokeless Tobacco: Never Alcohol Use Standard Drinks/Week Comments Yes 0 (1 standard drink = 0.6 oz pur e alcohol) Social, rare PHQ-2 Answer Date Recorded PHQ-2 Score 3 02/17/2019 Sex and Gender Information Value Date Recorded Sex Assigned at Female 11/04/2018 8:36 AM TALENT DEVELOPMENT CONSULTANT Gender Identity Female 11/04/2018 8:36 AM TALENT DEVELOPMENT CONSULTANT Sexual Orientation Straight 11/04/2018 8: 36 AM TALENT DEVELOPMENT CONSULTANT documented as of this encounter Plan of Treatment Not on file documented as of this encounter Visit Diagnoses Not on filedocumented in this encounter Additional Health Concerns Assessment Noted Time PHQ-9 Depression Total Score: 23 019 9:13 AM CDT documented as of this encounter Care Teams Bindery Cutter Operator Relationship Specialty Start Date End Date Andrez Krause PA-C PCP - General Physician Unemployment Claims Adjudicator - Medical 10/09/15 05/29/21 Heaven Brunson PA-C [facility] [address] [place] [address] PCP - General Physician Unemployment Claims Adjudicator 05/30/21 Andrez Krause PA-C [address] [place] [address] Assigned PCP 09/13/15 06/20/22 Mona Tian MD [address] [place], [place] [address] Assigned OBGYN Provider 08/03/20 Brett Torres [facility] 44220 [facility] 255 [place], [place] [address] Assigned Behavioral Health Provider 07/14/21 01/02/23 Karen Galvan PA-C 6363 [facility] 103 [place], [place] [address] Assigned Sleep Provider 09/01/21 Marie Lawrence [facility] 5775 [facility] 200 [place] [address] Assigned MTM Pharmacist 04/05/22 documented as of this encounter
--- OUTSIDE RECORDS SUMMARY | 2024-02-22 13:37 | XMS_ITS | Encounter Summary ---
Author Name Unknown Organization [facility] Address [address] [place] [address] Care Team Providers Care Aircraft Pneudraulics Repairer Name Role Phone Andrez Krause PA-C Primary Care Provider Andrez Krause PA-C Unavailable [phone] Mona Tian MD Unavailable [phone] Heaven Brunson PA-C Primary Care Provider Brett Torres MD Unavailable [phone] Karen Galvan PA-C Unavailable [phone] Marie Lawrence [facility] Unavailable Reason for Visit * Reason Onset Date Comments Headache 04/12/2020 Encounter Details Date Type Department Care Team (Late st Contact Info) Description 04/12/2020 [facility] Medical Advice [address], [address] [place] [address] Andrez Krause PA-C [address] [place] [address] Headache Social History Tobacco Use Types Packs/Day Years Used Date Smoking Tobacco: Never Smokeless Tobacco: Never Alcohol Use Standard Drinks/Week Comments Yes 0 (1 standard drink = 0.6 oz pur e alcohol) Social, rare PHQ-2 Answer Date Recorded PHQ-2 Score 3 02/17/2019 Sex and Gender Information Value Date Recorded Sex Assigned at Female 11/04/2018 8:36 AM OPTICAL GLASS ETCHER Gender Identity Female 11/04/2018 8:36 AM OPTICAL GLASS ETCHER Sexual Orientation Straight 11/04/2018 8: 36 AM OPTICAL GLASS ETCHER documented as of this encounter Miscellaneous Notes * Telephone Encounter - Bradford Grijalva MD - 04/13/2020 1:44 PM CDT RN OK to sign once pharmacy confirmed Bradford Grijalva MD * Telephone Encounter - Constantin [place] RN - 04/12/2020 10:25 AM CDT [employer] message sent to patient. Constantin Denise RN [...] documented as of this encounter Care Teams Aircraft Pneudraulics Repairer Relationship Specialty Start Date End Date Andrez Krause PA-C PCP - General Physician Hollock Maker - Medical 10/09/15 05/29/21 Heaven Brunson PA-C [facility] [address] [place] [address] PCP - General Physician Hollock Maker 05/30/21 Andrez Krause PA-C [address] [place] [address] Assigned PCP 09/13/15 06/20/22 Mona Tian MD [address] [place] [address] Assigned OBGYN Provider 08/03/20 Brett Torres MD [facility] 19399 [facility] 255 [place], [place] [address] Assigned Behavioral Health Provider 07/14/21 01/02/23 Karen Galvan PA-C [address] [facility] 103 [place] [address] Assigned Sleep Provider 09/01/21 Marie Lawrence, [facility] 5775 [facility] 200 [place], [place] [address] Assigned MTM Pharmacist 04/05/22 documented as of this encounter
--- OUTSIDE RECORDS SUMMARY | 2024-02-22 13:37 | XMS_ITS | Encounter Summary ---
Author Name Unknown Organization [facility] Address [address] [place] [address]. [place] [address] Care Team Providers Care Cfo Name Role Phone Andrez Krause PA-C Primary Care Provider Andrez Krause PA-C Unavailable [phone] Mona Tian MD Unavailable [phone] Heaven Brunson PA-C Primary Care Provider Brett Torres MD Unavailable [phone] Karen Galvan PA-C Unavailable + [phone] Marie Lawrence [facility] Unavailable [phone] Encounter Details Date Type Department Care Team (Late st Contact Info) Description 05/22/2019 My[facility] Medical Advice [address], [address] [place] [address] Andrez Krause PA-C [address] [place] [address] Social History Tobacco Use Types Packs/Day Years Used Date Smoking Tobacco: Never Smokeless Tobacco: Never Alcohol Use Standard Drinks/Week Comments Yes 0 (1 standard drink = 0.6 oz pur e alcohol) Social, rare PHQ-2 Answer Date Recorded PHQ-2 Score 3 02/17/2019 Sex and Gender Information Value Date Recorded Sex Assigned at Female 11/04/2018 8:36 AM YARDAGE TUFTING MACHINE OPERATOR Gender Identity Female 11/04/2018 8:36 AM YARDAGE TUFTING MACHINE OPERATOR Sexual Orientation Straight 11/04/2018 8: 36 AM YARDAGE TUFTING MACHINE OPERATOR documented as of this encounter Plan of Treatment Not on file documented as of this encounter Visit Diagnoses Not on filedocumented in this encounter Additional Health Concerns Assessment Noted Time PHQ-9 Depression Total Score: 23 019 9:13 AM CDT documented as of this encounter Care Teams Cfo Relationship Specialty Start Date End Date Andrez Krause PA-C PCP - General Physician Epic Anesthesia Analyst - Medical 10/09/15 05/29/21 Heaven Brunson PA-C [facility] [address] [place] [address] PCP - General Physician Epic Anesthesia Analyst 05/30/21 Andrez Krause PA-C [address] [place] [address] Assigned PCP 09/13/15 06/20/22 Mona Tian MD [address] [place], [place] [address] Assigned OBGYN Provider 08/03/20 Brett Torres MD [facility] 82298 [facility] 255 [place], [place] [address] Assigned Behavioral Health Provider 07/14/21 01/02/23 Karen Galvan PA-C 6363 [facility] 103 [place], [place] [address] Assigned Sleep Provider 09/01/21 Marie Lawrence [facility] 5775 [facility] 200 [place] [address] Assigned MTM Pharmacist 04/05/22 documented as of this encounter
--- OUTSIDE RECORDS SUMMARY | 2024-02-22 13:37 | XMS_ITS | Clinical Summary ---
Author Name Unknown Organization [facility] Address [address] [place] [address] Care Team Providers Care Acid Remover Name Role Phone Heaven Brunson PA-C Primary Care Provider Allergies No known active allergies Medications Medication Sig Dispensed Refills Start Date End Date Status rizatriptan (MAXALT-DRILL BIT SHARPENER) 5 MG ODTIndications:Migra ine without aura and [...] Sex Assigned at Female 11/04/2018 8:36 AM LEADER ASSEMBLER Gender Identity Female 11/04/2018 8:36 AM LEADER ASSEMBLER Sexual Orientation Straight 11/04/2018 8: 36 AM LEADER ASSEMBLER Last Filed Vital Signs Vital Sign Reading Time Taken Comments Blood Pressure 132/83 07/03/2021 12:55 PM CDT Pulse 91 07/03/2021 12:55 PM CDT Temperature 36.4 ??C (97.6 ??F) 07/03/2021 12:55 PM C DT Respiratory Rate 15 10/30/2019 9:30 PM LEADER ASSEMBLER Oxygen Saturation 99% 10/30/2019 10:45 PM LEADER ASSEMBLER Inhaled Oxygen Concentration - - Weight 112 [...] PHQ9 SCORE 18 Genesis Nina - 05/16/2019 [facility] VISIT NOTE Provider Outside OTHER * Pap imaged thin layer diagnostic with HPV (select HPV order below) (07/27/2018 6:32 PM CDT) PAP TYSHAWN Silva Report Patient Name: CHRISTI FUCHS MR#: [id number] Specimen #: [id number] Collected: 07/27/2018 Received: 07/29/2018 Reported: 07/30/2018 13:12 [...] CIERA Larsen (ASCP) Processed and screened at [facility] CLINICAL HISTORY: Currently not having periods, Intra-Uterine Device, Previous ASC-US Date of Last Pap: 11/20/2016, Papanicolaou Test Limitations: ??Cervical cytology is a screening test with limited sensitivity; regular screening is critical for cancer prevention; Pap tests are primarily effective for the diagnosis/preventi on of squamous cell carcinoma, not adenocarcinomas or other cancers. TESTING LAB LOCATION: [address] ??[address] COLLECTION SITE: Client: ??[facility] Location: [facility] ([facility] COPATH Cytologic material (specimen) 07/27/2018 6:32 PM CDT 07/29/2018 10:09 AM CDT Andrez JACKSON - OPTIMKali C LINICAL SPECIMEN COPATH from Last 3 Months or Most Recently Relevant to Health Maintenance Care Teams Acid Remover Relationship Specialty Start Date End Date Heaven Brunson PA-C [facility] [address] [place], [place] [address] PCP - General Physician Champagne Maker 05/30/21
--- OUTSIDE RECORDS SUMMARY | 2024-02-22 13:37 | XMS_ITS | Encounter Summary ---
Author Name Unknown Organization [facility] Address [address] [place] [address] Care Team Providers Care Film Editor Name Role Phone Andrez Krause PA-C Primary Care Provider Andrez Krause PA-C Unavailable [phone] Mona Tian MD Unavailable [phone] Heaven Brunson PA-C Primary Care Provider Brett Torres MD Unavailable [phone] Karen Galvan PA-C Unavailable [phone] Marie Lawrence [facility] Unavailable [phone] Reason for Visit * Reason Onset Date Comments IUD 12/06/2019 Concerns Encounter Details Date Type Department Care Team (Late st Contact Info) Description 12/06/2019 MyC Medical Advice [address], [address] [place] [address] Andrez Krause PA-C [address] [place] [address] IUD (Concerns) Social History Tobacco Use Types Packs/Day Years Used Date Smoking Tobacco: Never Smokeless Tobacco: Never Alcohol Use Standard Drinks/Week Comments Yes 0 (1 standard drink = 0.6 oz pur e alcohol) Social, rare PHQ-2 Answer Date Recorded PHQ-2 Score 3 02/17/2019 Sex and Gender Information Value Date Recorded Sex Assigned at Female 11/04/2018 8:36 AM BACKGROUND CHECK COORDINATOR Gender Identity Female 11/04/2018 8:36 AM BACKGROUND CHECK COORDINATOR Sexual Orientation Straight 11/04/2018 8: 36 AM BACKGROUND CHECK COORDINATOR documented as of this encounter Miscellaneous Notes * Telephone Encounter - Andrez Krause PA-C - 12/07/2019 10:42 AM BACKGROUND CHECK COORDINATOR She can come in for a visit. May not need it actually physically checked. Sometimes we can give OCP's or progesterone to stop bleeding that has been prolonged. Phone or evisit may still work for this. Andrez Arango GROUND CHECK COORDINATOR documented in this encounter Plan of Treatment Not on file documented as of this encounter Visit Diagnoses Not on filedocumented in this encounter Additional Health Concerns Assessment Noted Time PHQ-9 Depression Total Score: 23 019 9:13 AM CDT documented as of this encounter Care Teams Film Editor Relationship Specialty Start Date End Date Andrez Krause PA-C PCP - General Physician Central Processing Technician - Medical 10/09/15 05/29/21 Heaven Brunson PA-C [facility] [address] [place] [address] PCP - General Physician Central Processing Technician 05/30/21 Andrez Krause PA-C [address] [place] [address] Assigned PCP 09/13/15 06/20/22 Mona Tian MD [address] [place] [address] Assigned OBGYN Provider 08/03/20 Brett Torres [facility] [address] [place] [address] Assigned Behavioral Health Provider 07/14/21 01/02/23 Karen Galvan PA-C [address] [facility] 103 [place] [address] Assigned Sleep Provider 09/01/21 Marie Lawrence [facility] 5775 [facility] 200 [place], [place] [address] Assigned MTM Pharmacist 04/05/22 documented as of this encounter
--- OUTSIDE RECORDS SUMMARY | 2024-02-22 13:38 | XMS_ITS | Encounter Summary ---
Author Name Unknown Organization [facility] Address [address] [place] [address] Care Team Providers Care Low Raw Sugar Cutter Name Role Phone Andrez Krause PA-C Primary Care Provider Andrez Krause PA-C Unavailable [phone] Andrez Krause PA-C Unavailable [phone] Mona Tian MD Unavailable [phone] Heaven Brunson PA-C Primary Care Provider Brett Torres MD Unavailable [phone] Karen Galvan PA-C Unavailable [phone] Marie Lawrence [facility] Unavailable [phone] Encounter Details Date Type Department Care Team (Late st Contact Info) Description 04/03/2018 MyC Medical Advice [address] [address] Geraldine Chavarria, RN Social History Tobacco Use Types Packs/Day Years Used Date Smoking Tobacco: Never Smokeless Tobacco: Never Alcohol Use Standard Drinks/Week Comments Yes 0 (1 standard drink = 0.6 oz pur e alcohol) socially Sex and Gender Information Value Date Recorded Sex Assigned at Female 11/04/2018 8:36 AM CLINICAL SPECIALIST MEDICAL DEVICE Gender Identity Female 11/04/2018 8:36 AM CLINICAL SPECIALIST MEDICAL DEVICE Sexual Orientation Straight 11/04/2018 8: 36 AM CLINICAL SPECIALIST MEDICAL DEVICE documented as of this encounter Plan of Treatment Not on file documented as of this encounter Visit Diagnoses Not on filedocumented in this encounter Additional Health Concerns Assessment Noted Time PHQ-9 Depression Total Score: 23 018 7:00 AM CDT documented as of this encounter Care Teams Low Raw Sugar Cutter Relationship Specialty Start Date End Date Andrez Krause PA-C PCP - General Physician Copra Processor - Medical 10/09/15 05/29/21 Andrez Krause PA-C [address] [place] [address] PCP - Assigned PCP 09/13/15 12/14/18 Heaven Brunson PA-C [facility] [address] [place] [address] PCP - General Physician Copra Processor 05/30/21 Andrez Krause PA-C [address] [place] [address] Assigned PCP 09/13/15 06/20/22 Mona Tian MD [address] [place] [address] Assigned OBGYN Provider 08/03/20 Brett Torres [facility] [address] [facility] 255 [place] [address] Assigned Behavioral Health Provider 07/14/21 01/02/23 Karen Galvan PA-C 6363 [facility] 103 [place] [address] Assigned Sleep Provider 09/01/21 Marie Lawrence, [facility] [address] [address] Assigned MTM Pharmacist 04/05/22 documented as of this encounter
--- OUTSIDE RECORDS SUMMARY | 2024-02-22 13:38 | XMS_ITS | Encounter Summary ---
Author Name Unknown Organization [place] Address [address] [place] [address] Care Team Providers Care Embroiderer Hand Name Role Phone Andrez Krause PA-C Primary Care Provider Andrez Krause PA-C Unavailable [phone] Andrez Krause PA-C Unavailable +[phone] Mona Tian MD Unavailable +[phone] Heaven Brunson PA-C Primary Care Provider Brett Torres MD Unavailable +[phone] Karen Galvan PA-C Unavailable + [phone] Marie aLwrence [facility] Unavailable +[phone] Encounter Details Date Type Department Care Team (Latest Contact Info) Description 02/19/2017 Historic Results Social History Tobacco Use Types Packs/Day Years Used Date Smoking Tobacco: Never Smokeless Tobacco: Never Alcohol Use Standard Drinks/Week Comments Yes 0 (1 standard drink = 0.6 oz pur e alcohol) socially Sex and Gender Information Value Date Recorded Sex Assigned at Female 11/04/2018 8:36 AM DOPE EDGER Gender Identity Female 11/04/2018 8:36 AM DOPE EDGER Sexual Orientation Straight 11/04/2018 8: 36 AM DOPE EDGER documented as of this encounter Plan of Treatment Not on file documented as of this encounter Visit Diagnoses Not on filedocumented in this encounter Additional Health Concerns Assessment Noted Time PHQ-9 Depression Total Score: 11 017 7:20 AM CDT documented as of this encounter Care Teams Embroiderer Hand Relationship Specialty Start Date End Date Andrez Krause PA-C PCP - General Physician Emergency Management Coordinator - Medical 10/09/15 05/29/21 Andrez Krause PA-C [address] [place] [address] PCP - Assigned PCP 09/13/15 12/14/18 Heaven Brunson PA-C [facility] [address] [place], [place] [address] PCP - General Physician Emergency Management Coordinator 05/30/21 Adnrez Krause PA-C [address] [place] [address] Assigned PCP 09/13/15 06/20/22 Mona Tian MD [address] [place], [place] [address] Assigned OBGYN Provider 08/03/20 Brett Torres [facility] [address] [facility] 255 [place], [place] [address] Assigned Behavioral Health Provider 07/14/21 01/02/23 Karen Galvan PA-C [address] [facility] 103 [place], [place] [address] Assigned Sleep Provider 09/01/21 Marie Lawrence, [facility] 5775 [facility] 200 [place], [place] [id number] Assigned MTM Pharmacist 04/05/22 documented as of this encounter
--- OUTSIDE RECORDS SUMMARY | 2024-02-22 13:38 | XMS_ITS | Encounter Summary ---
Author Name Unknown Organization [place] Address [address] [place] [address] Care Team Providers Care Captain Airline Pilot Name Role Phone Andrez Krause PA-C Primary Care Provider Andrez Krause PA-C Unavailable +[phone] Andrez Krause PA-C Unavailable +[phone] Mona Tian MD Unavailable [phone] Heaven Brunson PA-C Primary Care Provider Brett Torres MD Unavailable +[phone] Karen Galvan PA-C Unavailable +[phone] Marie Lawrence [facility] Unavailable +[phone] Encounter Details Date Type Department Care Team (Late st Contact Info) Description 06/11/2016 MyC Medical Advice [address], [address] [place] [address] Josefina Diop, SKI PATROL RESIDENTIAL INSTRUCTOR [address] [place] [address] [address] [place] [address] Social History Tobacco Use Types Packs/Day Years Used Date Smoking Tobacco: Never Smokeless Tobacco: Never Alcohol Use Standard Drinks/Week Comments Yes 0 (1 standard drink = 0.6 oz pur e alcohol) socially Sex and Gender Information Value Date Recorded Sex Assigned at Female 11/04/2018 8:36 AM ENVELOPE SEALING MACHINE OPERATOR Gender Identity Female 11/04/2018 8:36 AM ENVELOPE SEALING MACHINE OPERATOR Sexual Orientation Straight 11/04/2018 8: 36 AM ENVELOPE SEALING MACHINE OPERATOR documented as of this encounter Plan of Treatment Not on file documented as of this encounter Visit Diagnoses Not on filedocumented in this encounter Additional Health Concerns Assessment Noted Time PHQ-9 Depression Total Score: 25 016 7:14 AM CDT documented as of this encounter Care Teams Captain Airline Pilot Relationship Specialty Start Date End Date Andrez Krause PA-C PCP - General Physician Forging Roll Operator - Medical 10/09/15 05/29/21 Andrez Krause PA-C [address] [place] [address] PCP - Assigned PCP 09/13/15 12/14/18 Heaven Brunson PA-C [facility] [address] [place] [address] PCP - General Physician Forging Roll Operator 05/30/21 Andrez Krause PA-C [address] [place] [address] Assigned PCP 09/13/15 06/20/22 Mona Tian MD [address] [place], [place] [address] Assigned OBGYN Provider 08/03/20 Brett Torres [facility] [address] [facility] 255 [place], [place] [address] Assigned Behavioral Health Provider 07/14/21 01/02/23 Karen Galvan PA-C [address] [address] Assigned Sleep Provider 09/01/21 Marie Lawrence, [facility] 5775 [facility] 200 [place], [place] [address] Assigned MTM Pharmacist 04/05/22 documented as of this encounter
--- OUTSIDE RECORDS SUMMARY | 2024-02-22 13:38 | XMS_ITS | Encounter Summary ---
Author Name Unknown Organization [place] Address [address] [place] [address] Care Team Providers Care Solaris Administrator Name Role Phone Andrez Krause PA-C Primary Care Provider Andrez Krause PA-C Unavailable +[phone] Andrez Krause PA-C Unavailable +[phone] Mona Tian MD Unavailable [phone] Heaven Brunson PA-C Primary Care Provider Brett Torres MD Unavailable +[phone] Karen Galvan PA-C Unavailable + [phone] Marie Lawrence [facility] Unavailable +[phone] Reason for Visit * Reason Onset Date Comments MyChart Communication 10/22/2016 PHQ-9, due for depression follow up Encounter Details Date Type Department Care Team (Latest Contact Info) Description 10/22/2016 MyC Medical Advice [address], [address] [place] [address] Marnie Mabry MA MyChart Communication (PHQ-9, due for depr... Social History Tobacco Use Types Packs/Day Years Used Date Smoking Tobacco: Never Smokeless Tobacco: Never Alcohol Use Standard Drinks/Week Comments Yes 0 (1 standard drink = 0.6 oz pur e alcohol) socially Sex and Gender Information Value Date Recorded Sex Assigned at Female 11/04/2018 8:36 AM STONE LAYOUT MARKER Gender Identity Female 11/04/2018 8:36 AM STONE LAYOUT MARKER Sexual Orientation Straight 11/04/2018 8: 36 AM STONE LAYOUT MARKER documented as of this encounter Plan of Treatment Not on file documented as of this encounter Visit Diagnoses Not on filedocumented in this encounter Additional Health Concerns Assessment Noted Time PHQ-9 Depression Total Score: 21 016 7:20 AM CDT documented as of this encounter Care Teams Solaris Administrator Relationship Specialty Start Date End Date Andrez Krause PA-C PCP - General Physician Tray Delivery Aide - Medical 10/09/15 05/29/21 Andrez Krause PA-C [address] [place] [address] PCP - Assigned PCP 09/13/15 12/14/18 Heaven Brunson PA-C [facility] [address] [address] PCP - General Physician Tray Delivery Aide 05/30/21 Andrez Krause PA-C [address] [place] [address] Assigned PCP 09/13/15 06/20/22 Mona Tian MD [address] [place] [address] Assigned OBGYN Provider 08/03/20 Brett Torres [facility] [address] [facility] 255 [place], [place] [address] Assigned Behavioral Health Provider 07/14/21 01/02/23 Karen Galvan PA-C [address] [address] Assigned Sleep Provider 09/01/21 Marie Lawrence, [facility] 5775 [facility] 200 [place], [place] [address] Assigned MTM Pharmacist 04/05/22 documented as of this encounter
--- OUTSIDE RECORDS SUMMARY | 2024-02-22 13:38 | XMS_ITS | Encounter Summary ---
Author Name Unknown Organization [place] Address [address] [place] [address] Care Team Providers Care U.S. Commissioner Name Role Phone Andrez Krause PA-C Primary Care Provider Andrez Krause PA-C Unavailable + [phone] Andrez Krause PA-C Unavailable +[phone] Mona Tian MD Unavailable [phone] Heaven Brunson PA-C Primary Care Provider Brett Torres MD Unavailable +[phone] Karen Galvan PA-C Unavailable + [phone] Marie Lawrence [facility] Unavailable +[phone] Reason for Visit * Reason Onset Date Comments Medication Problem 02/13/2016 Lexapro Encounter Details Date Type Department Care Team (Late st Contact Info) Description 02/13/2016 MyC Medical Advice [address], [address] [place] [address] Andrez Krause PA-C [address] [place] [address] Medication Problem (Lexapro) Social History Tobacco Use Types Packs/Day Years Used Date Smoking Tobacco: Never Alcohol Use Standard Drinks/Week Comments Yes 0 (1 standard drink = 0.6 oz pur e alcohol) Sex and Gender Information Value Date Recorded Sex Assigned at Female 11/04/2018 8:36 AM CAMPGROUND CLEANING ATTENDANT Gender Identity Female 11/04/2018 8:36 AM CAMPGROUND CLEANING ATTENDANT Sexual Orientation Straight 11/04/2018 8: 36 AM CAMPGROUND CLEANING ATTENDANT documented as of this encounter Plan of Treatment Not on file documented as of this encounter Visit Diagnoses Not on filedocumented in this encounter Additional Health Concerns Assessment Noted Time PHQ-9 Depression Total Score: 21 01/08/ 016 9:30 AM CDT documented as of this encounter Care Teams U.S. Commissioner Relationship Specialty Start Date End Date Andrez Krause PA-C PCP - General Physician Linoleum Floor Layer - Medical 10/09/15 05/29/21 Andrez Krause PA-C [address] [place] [address] PCP - Assigned PCP 09/13/15 12/14/18 Heaven Brunson PA-C [facility] [address] [place] [address] PCP - General Physician Linoleum Floor Layer 05/30/21 Andrez Krause PA-C [address] [place] [address] Assigned PCP 09/13/15 06/20/22 Mona Tian MD [address] [place] [address] Assigned OBGYN Provider 08/03/20 Brett Torres [facility] [address] [place] [address] Assigned Behavioral Health Provider 07/14/21 01/02/23 Karen Galvan PA-C [address] [place] [address] Assigned Sleep Provider 09/01/21 Marie Lawrence, [facility] 5775 [facility] [address] [place] [address] Assigned MTM Pharmacist 04/05/22 documented as of this encounter
--- OUTSIDE RECORDS SUMMARY | 2024-02-22 13:38 | XMS_ITS | Encounter Summary ---
Author Name Unknown Organization [place] Address [address] [place] [address] Care Team Providers Care Oem Sales Manager Name Role Phone Andrez Krause PA-C Primary Care Provider Andrez Krause PA-C Unavailable + [phone] Andrez Krause PA-C Unavailable + [phone] Mona Tian MD Unavailable +[phone] Heaven Brunson PA-C Primary Care Provider Brett Torres MD Unavailable +[phone] Karen Galvan PA-C Unavailable + [phone] Marie Lawrence [facility] Unavailable +[phone] Reason for Visit * Reason Onset Date Comments Mental Health Problem 09/11/2017 Encounter Details Date Type Department Care Team (Late st Contact Info) Description 09/11/2017 MyC Medical Advice [address], [address] [place] [address] Andrez Krause PA-C [address] [place] [address] Mental Health Problem Social History Tobacco Use Types Packs/Day Years Used Date Smoking Tobacco: Never Smokeless Tobacco: Never Alcohol Use Standard Drinks/Week Comments Yes 0 (1 standard drink = 0.6 oz pur e alcohol) socially Sex and Gender Information Value Date Recorded Sex Assigned at Female 11/04/2018 8:36 AM ATTIC BLOWER Gender Identity Female 11/04/2018 8:36 AM ATTIC BLOWER Sexual Orientation Straight 11/04/2018 8: 36 AM ATTIC BLOWER documented as of this encounter Plan of Treatment Not on file documented as of this encounter Visit Diagnoses Not on filedocumented in this encounter Additional Health Concerns Assessment Noted Time PHQ-9 Depression Total Score: 25 017 7:54 AM ATTIC BLOWER documented as of this encounter Care Teams Oem Sales Manager Relationship Specialty Start Date End Date Andrez Krause PA-C PCP - General Physician Steam Oven Operator - Medical 10/09/15 05/29/21 Andrez Krause PA-C [address] [place] [address] PCP - Assigned PCP 09/13/15 12/14/18 Heaven Brunson PA-C [facility] [address] [place] [address] PCP - General Physician Steam Oven Operator 05/30/21 Andrez Krause PA-C [address] [place] [address] Assigned PCP 09/13/15 06/20/22 Mona Tian MD [address] [place] [address] Assigned OBGYN Provider 08/03/20 Brett Torres [facility] [address] [place] [address] Assigned Behavioral Health Provider 07/14/21 01/02/23 Karen Galvan PA-C [address] [place] [address] Assigned Sleep Provider 09/01/21 Marie Lawrence, [facility] 5775 [facility] 200 [place] [address] Assigned MTM Pharmacist 04/05/22 documented as of this encounter
--- OUTSIDE RECORDS SUMMARY | 2024-02-22 13:38 | XMS_ITS | Encounter Summary ---
Author Name Unknown Organization [place] Address [address] [place] [address] Care Team Providers Care Distribution Lineman Name Role Phone Andrez Krause PA-C Primary Care Provider Andrez Krause PA-C Unavailable + [phone] Andrez Krause PA-C Unavailable +[phone] Mona Tian MD Unavailable [phone] Heaven Brunson PA-C Primary Care Provider Brett Torres MD Unavailable +[phone] Karen Galvan PA-C Unavailable + [phone] Marie Lawrence [facility] Unavailable +[phone] Reason for Visit * Reason Onset Date Comments Refill Request 07/01/2017 Methylphenidate Encounter Details Date Type Department Care Team (Late st Contact Info) Description 07/01/2017 MyC Medical Advice [address], [address] [place] [address] Andrez Krause PA-C [address] [place] [address] Refill Request (Methylphenidate) Social History Tobacco Use Types Packs/Day Years Used Date Smoking Tobacco: Never Smokeless Tobacco: Never Alcohol Use Standard Drinks/Week Comments Yes 0 (1 standard drink = 0.6 oz pur e alcohol) socially Sex and Gender Information Value Date Recorded Sex Assigned at Female 11/04/2018 8:36 AM CARE AIDE Gender Identity Female 11/04/2018 8:36 AM CARE AIDE Sexual Orientation Straight 11/04/2018 8: 36 AM CARE AIDE documented as of this encounter Miscellaneous [...] [facility] [address] [place] [address] Routing refill request to provider for review/approval because: Drug not on the [facility], [facility] or [facility] refill protocol or controlled substance. DIRECTOR MICROBIOLOGY checked 07/01/2017: 05/19/2017 GABAPENTIN 300 MG CAPSULE [...] documented as of this encounter Care Teams Distribution Lineman Relationship Specialty Start Date End Date Anrdez Krause PA-C PCP - General Physician Stained Glass Painter - Medical 10/09/15 05/29/21 Andrez Krause PA-C [address] [place] [address] PCP - Assigned PCP 09/13/15 12/14/18 Heaven Brunson PA-C [facility] [address] [place], [place] [address] PCP - General Physician Stained Glass Painter 05/30/21 Andrez Krause PA-C [address] [address] Assigned PCP 09/13/15 06/20/22 Mona Tian MD [address] [place] [address] Assigned OBGYN Provider 08/03/20 Brett Torres [facility] [address] [facility] 255 [place], [place] [address] Assigned Behavioral Health Provider 07/14/21 01/02/23 Karen Galvan PA-C [address] [facility] 103 [place] [address] Assigned Sleep Provider 09/01/21 Marie Lawrence, [facility] 5775 [facility] 200 [place], [place] [address] Assigned MTM Pharmacist 04/05/22 documented as of this encounter
--- OUTSIDE RECORDS SUMMARY | 2024-02-22 13:38 | XMS_ITS | Encounter Summary ---
Author Name Unknown Organization [place] Address [address] [place] [address] Care Team Providers Care Entry Level Machine Operator Name Role Phone Andrez Krause PA-C Primary Care Provider Andrez Krause PA-C Unavailable + [phone] Andrez Krause PA-C Unavailable + [phone] Mona Tian MD Unavailable +[phone] Heaven Brunson PA-C Primary Care Provider Brett Torres MD Unavailable +[phone] Karen Galvan PA-C Unavailable + [phone] Marie Lawrence [facility] Unavailable +[phone] Reason for Visit * Reason Onset Date Comments Infection 03/03/2016 Tonsil Encounter Details Date Type Department Care Team (Late st Contact Info) Description 03/03/2016 MyC Medical Advice [address], [address] [place] [address] Andrez Krause PA-C [address] [place] [address] Infection (Tonsil) Social History Tobacco Use Types Packs/Day Years Used Date Smoking Tobacco: Never Alcohol Use Standard Drinks/Week Comments Yes 0 (1 standard drink = 0.6 oz pur e alcohol) socially Sex and Gender Information Value Date Recorded Sex Assigned at Female 11/04/2018 8:36 AM POWER CLEANER OPERATOR Gender Identity Female 11/04/2018 8:36 AM POWER CLEANER OPERATOR Sexual Orientation Straight 11/04/2018 8: 36 AM POWER CLEANER OPERATOR documented as of this encounter Plan of Treatment Not on file documented as of this encounter Visit Diagnoses Not on filedocumented in this encounter Additional Health Concerns Assessment Noted Time PHQ-9 Depression Total Score: 21 016 9:30 AM CDT documented as of this encounter Care Teams Entry Level Machine Operator Relationship Specialty Start Date End Date Andrez Krause PA-C PCP - General Physician Retail Wireless Sales Consultant - Medical 10/09/15 05/29/21 Andrez Krause PA-C [address] [place] [address] PCP - Assigned PCP 09/13/15 12/14/18 Heaven Brunson PA-C [facility] [address] [place] [address] PCP - General Physician Retail Wireless Sales Consultant 05/30/21 Andrez Krause PA-C [address] [place] [address] Assigned PCP 09/13/15 06/20/22 Mona Tian MD [address] [place] [address] Assigned OBGYN Provider 08/03/20 Brett Torres [facility] [address] [address] Assigned Behavioral Health Provider 07/14/21 01/02/23 Karen Galvan PA-C [address] [place] [address] Assigned Sleep Provider 09/01/21 Marie Lawrence, [facility] 5775 [facility] [address] [place], [place] [address] Assigned MTM Pharmacist 04/05/22 documented as of this encounter
--- OUTSIDE RECORDS SUMMARY | 2024-02-22 13:38 | XMS_ITS | Encounter Summary ---
Author Name Unknown Organization [place] Address [address] [place] [address] Care Team Providers Care Dental Appliance Mechanic Name Role Phone Andrez Krause PA-C Primary Care Provider Andrez Krause PA-C Unavailable + [phone] Andrez Krause PA-C Unavailable + [phone] Mona Tian MD Unavailable [phone] Heaven Brunson PA-C Primary Care Provider Brett Torres MD Unavailable +[phone] Karen Galvan PA-C Unavailable + [phone] Marie Lawrence [facility] Unavailable +[phone] Reason for Visit * Reason Onset Date Comments Medication Request 12/07/2018 Atomoxetine 6 0mg Encounter Details Date Type Department Care Team (Late st Contact Info) Description 12/07/2018 [facility] [place] [address], [address] [place] [address] Andrez Krause PA-C [address] [place] [address] Medication Request (Atomoxetine 60mg) Social History Tobacco Use Types Packs/Day Years Used Date Smoking Tobacco: Never Smokeless Tobacco: Never Alcohol Use Standard Drinks/Week Comments Yes 0 (1 standard drink = 0.6 oz pur e alcohol) Social, rare PHQ-2 Answer Date Recorded PHQ-2 Score 6 10/19/2018 Sex and Gender Information Value Date Recorded Sex Assigned at Female 11/04/2018 8:36 AM SPEECH PATHOLOGY TEACHER Gender Identity Female 11/04/2018 8:36 AM SPEECH PATHOLOGY TEACHER Sexual Orientation Straight 11/04/2018 8: 36 AM SPEECH PATHOLOGY TEACHER documented as of this encounter Miscellaneous Notes * Telephone Encounter - nAdrez Krause PA-C - 12/09/2018 8:35 AM SPEECH PATHOLOGY TEACHER Of course just getting to this now. Likely would not have had time to do a PA anyway? I can send the refill and see what happens. Andrez CH PATHOLOGY TEACHER * Telephone Encounter - Nalini Conte RN - 12/07/2018 3:32 PM CST Images from the original note were not included. 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 [address] [place] [address] PCP - General Physician Multimedia Services Coordinator 05/30/21 Andrez Krause PA-C [address] [place] [address] Assigned PCP 09/13/15 06/20/22 Mona Tian MD [address] [place], [place] [address] Assigned OBGYN Provider 08/03/20 Brett Torres [facility] [address] [facility] [address] [place], [place] [address] Assigned Behavioral Health Provider 07/14/21 01/02/23 Karen Galvan PA-C [address] [facility] 103 [place], [place] [address] Assigned Sleep Provider 09/01/21 Marie Lawrence, [facility] 5775 [facility] 200 [place], [place] [address] Assigned MTM Pharmacist 04/05/22 documented as of this encounter
--- OUTSIDE RECORDS SUMMARY | 2024-02-22 13:38 | XMS_ITS | Encounter Summary ---
Author Name Unknown Organization [facility] Address [address] [place] [address] Care Team Providers Care Commercial Airline Pilot Name Role Phone Andrez Kruase PA-C Primary Care Provider Andrez Krause PA-C Unavailable +[phone] Andrez Krause PA-C Unavailable +[phone] Mona Tian MD Unavailable +[phone] Heaven Brunson PA-C Primary Care Provider Brett Torres MD Unavailable +[phone] Karen Galvan PA-C Unavailable + [phone] Marie Lawrence [facility] Unavailable +[phone] Encounter Details Date Type Department Care Team (Late st Contact Info) Description 10/30/2017 MyC Medical Advice [address], [address] [place] [address] Geraldine Chavarria, RN Social History Tobacco Use Types Packs/Day Years Used Date Smoking Tobacco: Never Smokeless Tobacco: Never Alcohol Use Standard Drinks/Week Comments Yes 0 (1 standard drink = 0.6 oz pur e alcohol) socially Sex and Gender Information Value Date Recorded Sex Assigned at Female 11/04/2018 8:36 AM TOBACCO EDUCATOR Gender Identity Female 11/04/2018 8:36 AM TOBACCO EDUCATOR Sexual Orientation Straight 11/04/2018 8: 36 AM TOBACCO EDUCATOR documented as of this encounter Plan of Treatment Not on file documented as of this encounter Visit Diagnoses Not on filedocumented in this encounter Additional Health Concerns Assessment Noted Time PHQ-9 Depression Total Score: 19 018 9:18 AM TOBACCO EDUCATOR documented as of this encounter Care Teams Commercial Airline Pilot Relationship Specialty Start Date End Date Andrez Krause PA-C PCP - General Physician Building Services Coordinator - Medical 10/09/15 05/29/21 Andrez Krause PA-C [address] [place] [address] PCP - Assigned PCP 09/13/15 12/14/18 Heaven Brunson PA-C [facility] [address] [place] [address] PCP - General Physician Building Services Coordinator 05/30/21 Andrez Krause PA-C [address] [place] [address] Assigned PCP 09/13/15 06/20/22 Mona Tian MD [address] [place] [address] Assigned OBGYN Provider 08/03/20 Brett Torres [facility] [address] [facility] 255 [place] [address] Assigned Behavioral Health Provider 07/14/21 01/02/23 Karen Galvan PA-C [address] [place] [address] [place] [address] Assigned Sleep Provider 09/01/21 Marie Lawrence, [facility] 5775 [facility] 200 [place] [address] Assigned MTM Pharmacist 04/05/22 documented as of this encounter
--- OUTSIDE RECORDS SUMMARY | 2024-02-22 13:38 | XMS_ITS | Encounter Summary ---
Author Name Unknown Organization [facility] Address [address] [place] [address] Care Team Providers Care Pv Installer Tech Name Role Phone Andrez Krause PA-C Primary Care Provider Andrez Krause PA-C Unavailable + [phone] Andrez Krause PA-C Unavailable + [phone] Mona Tian MD Unavailable +[phone] Heaven Brunson PA-C Primary Care Provider Brett Torres MD Unavailable +[phone] Karen Galvan PA-C Unavailable +[phone] Marie Lawrence [facility] Unavailable +[phone] Reason for Visit * Reason Onset Date Comments Refill Request 12/11/2015 Zoloft, Imitrex Encounter Details Date Type Department Care Team (Late st Contact Info) Description 12/11/2015 MyC Refill [address], [address] [place] [address] Andrez Krause PA-C [address] [place] [address] Refill Request (Zoloft, Imitrex) Social History Tobacco Use Types Packs/Day Years Used Date Smoking Tobacco: Never Alcohol Use Standard Drinks/Week Comments Yes 0 (1 standard drink = 0.6 oz pur e alcohol) Sex and Gender Information Value Date Recorded Sex Assigned at Female 11/04/2018 8:36 AM EXCAVATOR BACKHOE OPERATOR Gender Identity Female 11/04/2018 8:36 AM EXCAVATOR BACKHOE OPERATOR Sexual Orientation Straight 11/04/2018 8: 36 AM EXCAVATOR BACKHOE OPERATOR documented as of this encounter Miscellaneous Notes * Telephone Encounter - Nalini Conte RN - 12/11/2015 10:43 AM CST Rx's already filled 11/23/2015 at [facility] Pharmacy. Nalini Conte RN VATOR BACKHOE OPERATOR * Telephone Encounter - Nalini Conte RN - 12/11/2015 10:43 AM CSTMessage from MyChart: Original authorizing provider: LUIS ANTONIO Molina would like a refill of the following medications: sertraline (ZOLOFT) 50 MG tablet [Andrez Krause PA-C] SUMAtriptan (IMITREX) 100 MG tablet [Andrez Krause PA-C] Preferred pharmacy: [facility][id number] - [place], [place] - [address] Comment: VATOR BACKHOE OPERATOR documented in this encounter Plan of Treatment [...] Total Score: 7 11/24/19 16 8:21 AM EXCAVATOR BACKHOE OPERATOR documented as of this encounter Care Teams Pv Installer Tech Relationship Specialty Start Date End Date Andrez Krause PA-C PCP - General Physician Bench Repair Technician - Medical 10/09/15 05/29/21 Andrez rKause PA-C [address] [facility] [address] PCP - Assigned PCP 09/13/15 12/14/18 Heaven Brunson PA-C [facility] [address] [place] [address] PCP - General Physician Bench Repair Technician 05/30/21 Andrez Krause PA-C [address] [place] [address] Assigned PCP 09/13/15 06/20/22 Mona Tian MD [address] [place], [place] [address] Assigned OBGYN Provider 08/03/20 Brett Torres [facility] [address] [facility] 255 [place], [place] [address] Assigned Behavioral Health Provider 07/14/21 01/02/23 Karen Galvan PA-C [address] [facility] 103 [place], [place] [address] Assigned Sleep Provider 09/01/21 Marie Lawrence [facility] 5775 [facility] 200 [place], [place] [address] Assigned MTM Pharmacist 04/05/22 documented as of this encounter
--- OUTSIDE RECORDS SUMMARY | 2024-02-22 13:38 | XMS_ITS | Encounter Summary ---
Author Name Unknown Organization [facility] Address [address] [place] [address] Care Team Providers Care Phone Screener Name Role Phone Andrez Krause PA-C Primary Care Provider Andrez Krause PA-C Unavailable +[phone] Andrez Krause PA-C Unavailable +[phone] Mona Tian MD Unavailable [phone] Heaven Brunson PA-C Primary Care Provider Brett Torres MD Unavailable [phone] Karen Galvan PA-C Unavailable + [phone] Marie Lawrence [facility] Unavailable +[phone] Encounter Details Date Type Department Care Team (Late st Contact Info) Description 04/17/2017 MyC Medical Advice [address], [address] [place] [address] Nalini Conte RN Social History Tobacco Use Types Packs/Day Years Used Date Smoking Tobacco: Never Smokeless Tobacco: Never Alcohol Use Standard Drinks/Week Comments Yes 0 (1 standard drink = 0.6 oz pur e alcohol) socially Sex and Gender Information Value Date Recorded Sex Assigned at Female 11/04/2018 8:36 AM CAR WASHER Gender Identity Female 11/04/2018 8:36 AM CAR WASHER Sexual Orientation Straight 11/04/2018 8: 36 AM CAR WASHER documented as of this encounter Plan of Treatment Not on file documented as of this encounter Visit Diagnoses Not on filedocumented in this encounter Additional Health Concerns Assessment Noted Time PHQ-9 Depression Total Score: 11 017 7:20 AM CDT documented as of this encounter Care Teams Phone Screener Relationship Specialty Start Date End Date Andrez Krause PA-C PCP - General Physician Conference Director - Medical 10/09/15 05/29/21 Andrez Krause PA-C [address] [place] [address] PCP - Assigned PCP 09/13/15 12/14/18 Heaven Brunson PA-C [facility] [address] [place] [address] PCP - General Physician Conference Director 05/30/21 Andrez Krause PA-C [address] [place] [address] Assigned PCP 09/13/15 06/20/22 Mona Tian MD [address] [place] [address] Assigned OBGYN Provider 08/03/20 Brett Torres [facility] [address] [facility] 255 [place] [address] Assigned Behavioral Health Provider 07/14/21 01/02/23 Karen Galvan PA-C [address] [place] [address] Assigned Sleep Provider 09/01/21 Marie Lawrence, [facility] 5775 [facility] 200 [place] [address] Assigned MTM Pharmacist 04/05/22 documented as of this encounter
--- OUTSIDE RECORDS SUMMARY | 2024-02-22 13:38 | XMS_ITS | Encounter Summary ---
Author Name Unknown Organization [facility] Address [address] [place] [address] Care Team Providers Care Business Consult Name Role Phone Andrez Krause PA-C Primary Care Provider Andrez Krause PA-C Unavailable +[phone] Andrez Krause PA-C Unavailable +[phone] Mona Tian MD Unavailable [phone] Heaven Brunson PA-C Primary Care Provider Brett Torres MD Unavailable +[phone] Karen Galvan PA-C Unavailable + [phone] Marie Lawrence [facility] Unavailable [phone] Encounter Details Date Type Department Care Team (Late st Contact Info) Description 08/25/2017 MyC Medical Advice [address], [address] [place] [address] Nalini Conte RN Social History Tobacco Use Types Packs/Day Years Used Date Smoking Tobacco: Never Smokeless Tobacco: Never Alcohol Use Standard Drinks/Week Comments Yes 0 (1 standard drink = 0.6 oz pur e alcohol) socially Sex and Gender Information Value Date Recorded Sex Assigned at Female 11/04/2018 8:36 AM FILTER TENDER Gender Identity Female 11/04/2018 8:36 AM FILTER TENDER Sexual Orientation Straight 11/04/2018 8: 36 AM FILTER TENDER documented as of this encounter Plan of Treatment Not on file documented as of this encounter Visit Diagnoses Not on filedocumented in this encounter Additional Health Concerns Assessment Noted Time PHQ-9 Depression Total Score: 25 017 7:07 AM CDT documented as of this encounter Care Teams Business Consult Relationship Specialty Start Date End Date Andrez Krause PA-C PCP - General Physician Foley Artist - Medical 10/09/15 05/29/21 Andrez Krause PA-C [address] [place] [address] PCP - Assigned PCP 09/13/15 12/14/18 Heaven Brunson PA-C [facility] [address] [place] [address] PCP - General Physician Foley Artist 05/30/21 Andrez Krause PA-C [address] [place] [address] Assigned PCP 09/13/15 06/20/22 Mona Tian MD [address] [place] [address] Assigned OBGYN Provider 08/03/20 Brett Torres [facility] [address] [facility] 255 [place] [address] Assigned Behavioral Health Provider 07/14/21 01/02/23 Karen Galvan PA-C [address] [place] [address] [place] [address] Assigned Sleep Provider 09/01/21 Marie Lawrence, [facility] 5775 [facility] 200 [place] [address] Assigned MTM Pharmacist 04/05/22 documented as of this encounter
--- OUTSIDE RECORDS SUMMARY | 2024-02-22 13:38 | XMS_ITS | Encounter Summary ---
Author Name Unknown Organization [facility] Address [address] [place] [address] Care Team Providers Care Area Plant Manager Name Role Phone Andrez Krause PA-C Primary Care Provider Andrez Krause PA-C Unavailable [phone] Andrez Krause PA-C Unavailable +[phone] Mona Tian MD Unavailable [phone] Heaven Brunson PA-C Primary Care Provider Brett Torres MD Unavailable [phone] Karen Galvan PA-C Unavailable + [phone] Marie Lawrence [facility] Unavailable +[phone] Reason for Visit * Reason Comments Medication Refill gabapentin (NEURONTI N) 100 MG capsule Encounter Details Date Type Department Care Team (Late st Contact Info) Description 01/16/[address], [address] [place] [address] Andrez Krause PA-C [address] [place] [address] Medication Refill (gabapentin (NEURONTIN) 100 MG capsule) Social History Tobacco Use Types Packs/Day Years Used Date Smoking Tobacco: Never Smokeless Tobacco: Never Alcohol Use Standard Drinks/Week Comments Yes 0 (1 standard drink = 0.6 oz pur e alcohol) socially Sex and Gender Information Value Date Recorded Sex Assigned at Female 11/04/2018 8:36 AM PUMP ERECTOR Gender Identity Female 11/04/2018 8:36 AM PUMP ERECTOR Sexual Orientation Straight 11/04/2018 8: 36 AM PUMP ERECTOR documented as of this encounter Miscellaneous Notes * Telephone Encounter - Denia Reddy - 01/17/2017 9:02 AM CDT gabapentin (NEURONTIN) 100 MG capsule Sig: Take 1 capsule (100 mg) by mouth At Bedtime Last Written Prescription Date: 12/18/16 Last Quantity: 30, # refills: 0 Last Office Visit with [facility], [facility] or [facility] prescribing provider: 01/15/2017 Creatinine Date Value Ref [...] for review/approval because: Drug not on the [facility], [facility] or [facility] refill protocol or controlled substance TAVO Cesar [...] Depression Total Score: 24 017 7:05 AM PUMP ERECTOR documented as of this encounter Care Teams Area Plant Manager Relationship Specialty Start Date End Date Andrez Krause PA-C PCP - General Physician Ammonia Refrigeration Worker - Medical 10/09/15 05/29/21 Andrez Krause PA-C [address] [place] [address] PCP - Assigned PCP 09/13/15 12/14/18 Heaven Brunson PA-C [facility] [address] [place] [address] PCP - General Physician Ammonia Refrigeration Worker 05/30/21 Andrez Krause PA-C [address] [facility] [place] [address] Assigned PCP 09/13/15 06/20/22 Mona Tian MD [address] [place] [address] Assigned OBGYN Provider 08/03/20 Brett Torres [facility] [address] [facility] 255 [place], [place] [address] Assigned Behavioral Health Provider 07/14/21 01/02/23 Karen Galvan PA-C [address] [facility] 103 [place] [address] Assigned Sleep Provider 09/01/21 Marie Lawrence, [facility] 5775 [facility] 200 [place], [place] [address] Assigned MTM Pharmacist 04/05/22 documented as of this encounter
--- OUTSIDE RECORDS SUMMARY | 2024-02-22 13:38 | XMS_ITS | Encounter Summary ---
Author Name Unknown Organization [facility] Address [address] [place] [address] Care Team Providers Care Airport Location Manager Name Role Phone Andrez Krause PA-C Primary Care Provider Andrez Krause PA-C Unavailable + [phone] Andrez Krause PA-C Unavailable + [phone] Mona Tian MD Unavailable +[phone] Heaven Brunson PA-C Primary Care Provider Brett Torres MD Unavailable +[phone] Karen Galvan PA-C Unavailable + [phone] Marie Lawrence [facility] Unavailable +[phone] Reason for Visit * Reason Onset Date Comments Refill Request 01/02/2016 Imitrex Encounter Details Date Type Department Care Team (Late st Contact Info) Description 01/02/2016 MyC Refill [address], [address] [place] [address] Andrez Krause PA-C [address] [place] [address] Refill Request (Imitrex) Social History Tobacco Use Types Packs/Day Years Used Date Smoking Tobacco: Never Alcohol Use Standard Drinks/Week Comments Yes 0 (1 standard drink = 0.6 oz pur e alcohol) Sex and Gender Information Value Date Recorded Sex Assigned at Female 11/04/2018 8:36 AM SUPERVISOR ROSE GRADING Gender Identity Female 11/04/2018 8:36 AM SUPERVISOR ROSE GRADING Sexual Orientation Straight 11/04/2018 8: 36 AM SUPERVISOR ROSE GRADING documented as of this encounter Miscellaneous Notes [...] # refills: 1 Last Office Visit with [facility] or [facility] prescribing provider: 11/23/2015 Next 5 appointments (look out 90 days) Jan 08, 2016 4:30 PM Anastasiya Long with Andrez Krause PA-C [facility] [id number] [place] [address] BP Readings from Last 3 Encounters: [...] following medications: SUMAtriptan (IMITREX) 100 MG tablet [Anrdez Krause PA-C] Preferred pharmacy: [facility] - [facility] [id number] [place] [address] Comment: documented in this encounter Plan of [...] documented as of this encounter Care Teams Airport Location Manager Relationship Specialty Start Date End Date Andrez Krause PA-C PCP - General Physician Furnace Reliner - Medical 10/09/15 05/29/21 Andrez Krause PA-C [address] [place] [address] PCP - Assigned PCP 09/13/15 12/14/18 Heaven Brunson PA-C [facility] [address] [place] [address] PCP - General Physician Furnace Reliner 05/30/21 Andrez Krause PA-C [address] [place] [address] Assigned PCP 09/13/15 06/20/22 Mona Tian MD [address] [place], [place] [address] Assigned OBGYN Provider 08/03/20 Brett Torres [facility] [address] [facility] 255 [place], [place] [address] Assigned Behavioral Health Provider 07/14/21 01/02/23 Karen Galvan PA-C [address] [facility] 103 [place], [place] [address] Assigned Sleep Provider 09/01/21 Marie Lawrence, [facility] 5775 [facility] 200 [place] [address] Assigned MTM Pharmacist 04/05/22 documented as of this encounter
--- OUTSIDE RECORDS SUMMARY | 2024-02-22 13:38 | XMS_ITS | Encounter Summary ---
Author Name Unknown Organization [facility] Address [address] [place] [address] Care Team Providers Care Track Hoe Operator Name Role Phone Andrez Krause PA-C Primary Care Provider Andrez Krause PA-C Unavailable + [phone] Andrez Krause PA-C Unavailable + [phone] Mona Tian MD Unavailable [phone] Heaven Brunson PA-C Primary Care Provider Brett Torres MD Unavailable +[phone] Karen Galvan PA-C Unavailable + [phone] Marie Lawrence [facility] Unavailable +[phone] Reason for Visit * Reason Onset Date Comments Refill Request 11/19/2017 Imitrex tablets Encounter Details Date Type Department Care Team (Late st Contact Info) Description 11/19/2017 MyC Medical Advice [address], [address] [place] [address] Andrez Krause PA-C [address] [place] [address] Refill Request (Imitrex tablets) Social History Tobacco Use Types Packs/Day Years Used Date Smoking Tobacco: Never Smokeless Tobacco: Never Alcohol Use Standard Drinks/Week Comments Yes 0 (1 standard drink = 0.6 oz pur e alcohol) socially Sex and Gender Information Value Date Recorded Sex Assigned at Female 11/04/2018 8:36 AM GARDEN MACHINERY MECHANIC Gender Identity Female 11/04/2018 8:36 AM GARDEN MACHINERY MECHANIC Sexual Orientation Straight 11/04/2018 8: 36 AM GARDEN MACHINERY MECHANIC documented as of this encounter Miscellaneous Notes * Telephone Encounter - Nalini Conte RN - 11/19/2017 3:48 PM CST Looks like SUMAtriptan (IMITREX) 100 MG tablet #9 was sent to pharmacy. Nalini Conte RN EN MACHINERY MECHANIC documented in this encounter Plan of Treatment Not on file documented as of this encounter Visit Diagnoses Not on filedocumented in this encounter Additional Health Concerns Assessment Noted Time PHQ-9 Depression Total Score: 19 018 9:18 AM GARDEN MACHINERY MECHANIC documented as of this encounter Care Teams Track Hoe Operator Relationship Specialty Start Date End Date Andrez Krause PA-C PCP - General Physician Woodwind Instrument Repairer - Medical 10/09/15 05/29/21 Andrez Krause PA-C [address] [place] [address] PCP - Assigned PCP 09/13/15 12/14/18 Heaven Brunson PA-C [facility] [address] [place] [address] PCP - General Physician Woodwind Instrument Repairer 05/30/21 Andrez Krause PA-C [address] [place] [address] Assigned PCP 09/13/15 06/20/22 Mona Tian MD [address] [place] [address] Assigned OBGYN Provider 08/03/20 Brett Torres [facility] [address] [facility] [address] [place], [place] [address] Assigned Behavioral Health Provider 07/14/21 01/02/23 Karen Galvan PA-C [address] [facility] 103 [place], [place] [address] Assigned Sleep Provider 09/01/21 Marie Lawrence [facility] 5775 [facility] 200 [place], [place] [address] Assigned MTM Pharmacist 04/05/22 documented as of this encounter
--- OUTSIDE RECORDS SUMMARY | 2024-02-22 13:38 | XMS_ITS | Encounter Summary ---
Author Name Unknown Organization [facility] Address [address] [place] [address] Care Team Providers Care Restaurant Service Manager Name Role Phone Andrez Krause PA-C Primary Care Provider Andrez Krause PA-C Unavailable + [phone] Andrez Krause PA-C Unavailable + [phone] Mona Tian MD Unavailable [phone] Heaven Brunson PA-C Primary Care Provider Brett Torres MD Unavailable +[phone] Karen Galvan PA-C Unavailable + [phone] Marie Lawrence [facility] Unavailable +[phone] Reason for Visit * Reason Onset Date Comments Headache 11/30/2018 update Encounter Details Date Type Department Care Team (Late st Contact Info) Description 11/30/2018 MyC Medical Advice [address], [address] [place] [address] Andrez Krause PA-C [address] [place] [address] Headache (update) Social History Tobacco Use Types Packs/Day Years Used Date Smoking Tobacco: Never Smokeless Tobacco: Never Alcohol Use Standard Drinks/Week Comments Yes 0 (1 standard drink = 0.6 oz pur e alcohol) Social, rare PHQ-2 Answer Date Recorded PHQ-2 Score 6 10/19/2018 Sex and Gender Information Value Date Recorded Sex Assigned at Female 11/04/2018 8:36 AM GARLAND MACHINE OPERATOR Gender Identity Female 11/04/2018 8:36 AM GARLAND MACHINE OPERATOR Sexual Orientation Straight 11/04/2018 8: 36 AM GARLAND MACHINE OPERATOR documented as of this encounter Plan of Treatment Not on file documented as of this encounter Visit Diagnoses Diagnosis Migraine without aura and without status migrainosus, not intractable- Primary Migraine without aura, without mention of intractable migraine without mention of status migrainosus documented in this encounter Additional Health Concerns Assessment Noted Time PHQ-9 Depression Total Score: 019 5:05 PM GARLAND MACHINE OPERATOR documented as of this encounter Care Teams Restaurant Service Manager Relationship Specialty Start Date End Date Andrez Krause PA-C PCP - General Physician Machine Spring Former - Medical 10/09/15 05/29/21 Andrez Krause PA-C [address] [place] [address] PCP - Assigned PCP 09/13/15 12/14/18 Heaven Brunson PA-C [facility] [address] [address] PCP - General Physician Machine Spring Former 05/30/21 Andrez Krause PA-C [address] [place] [address] Assigned PCP 09/13/15 06/20/22 Mona Tian MD [address] [place], [place] [address] Assigned OBGYN Provider 08/03/20 Brett Torres [facility] [address] [place] [address] Assigned Behavioral Health Provider 07/14/21 01/02/23 Karen Galvan PA-C [address] [facility] 103 [place] [address] Assigned Sleep Provider 09/01/21 Marie Lawrence, [facility] 5775 [facility] 200 [place], [place] [id number] Assigned MTM Pharmacist 04/05/22 documented as of this encounter
--- OUTSIDE RECORDS SUMMARY | 2024-02-22 13:38 | XMS_ITS | Encounter Summary ---
Author Name Unknown Organization [place] Address [address] [place] [address] Care Team Providers Care Bean Viner Name Role Phone Andrez Krause PA-C Primary Care Provider Andrez Krause PA-C Unavailable +[phone] Andrez Krause PA-C Unavailable [phone] Mona Tian MD Unavailable [phone] Heaven Brunson PA-C Primary Care Provider Brett Torres MD Unavailable +[phone] Karen Galvan PA-C Unavailable +[phone] Marie Lawrence [facility] Unavailable +[phone] Encounter Details Date Type Department Care Team (Late st Contact Info) Description 11/04/2017 MyC Medical Advice [address], [address] [place] [address] Marnie Mabry MA Social History Tobacco Use Types Packs/Day Years Used Date Smoking Tobacco: Never Smokeless Tobacco: Never Alcohol Use Standard Drinks/Week Comments Yes 0 (1 standard drink = 0.6 oz pur e alcohol) socially Sex and Gender Information Value Date Recorded Sex Assigned at Female 11/04/2018 8:36 AM WALL AND FLOOR TILER Gender Identity Female 11/04/2018 8:36 AM WALL AND FLOOR TILER Sexual Orientation Straight 11/04/2018 8: 36 AM WALL AND FLOOR TILER documented as of this encounter Plan of Treatment Not on file documented as of this encounter Visit Diagnoses Not on filedocumented in this encounter Additional Health Concerns Assessment Noted Time PHQ-9 Depression Total Score: 19 018 9:18 AM WALL AND FLOOR TILER documented as of this encounter Care Teams Bean Viner Relationship Specialty Start Date End Date Andrez Krause PA-C PCP - General Physician Cylinder Block Mechanic - Medical 10/09/15 05/29/21 Andrez Krause PA-C [address] [place] [address] PCP - Assigned PCP 09/13/15 12/14/18 Heaven Brunson PA-C [facility] [address] [place] [address] PCP - General Physician Cylinder Block Mechanic 05/30/21 Andrez Krause PA-C [address] [place] [address] Assigned PCP 09/13/15 06/20/22 Mona Tian MD [address] [place] [address] Assigned OBGYN Provider 08/03/20 Brett Torres [facility] [address] [facility] [address] [place] [address] Assigned Behavioral Health Provider 07/14/21 01/02/23 Karen Galvan PA-C [address] [place] [address] [place] [address] Assigned Sleep Provider 09/01/21 Marie Lawrence, [facility] 5775 [facility] 200 [place] [address] Assigned MTM Pharmacist 04/05/22 documented as of this encounter
--- OUTSIDE RECORDS SUMMARY | 2024-02-22 13:38 | XMS_ITS | Encounter Summary ---
Author Name Unknown Organization [place] Address [address] [place] [address] Care Team Providers Care Crew Manager Name Role Phone Andrez Krause PA-C Primary Care Provider Andrez Krause PA-C Unavailable + [phone] Andrez Krause PA-C Unavailable + [phone] Mona Tian MD Unavailable [phone] Heaven Brunson PA-C Primary Care Provider Brett Torres MD Unavailable [phone] Karen Galvan PA-C Unavailable + [phone] Marie Lawrence [facility] Unavailable [phone] Reason for Visit * Reason Onset Date Comments Refill Request 03/23/2016 Encounter Details Date Type Department Care Team (Late st Contact Info) Description 03/23/2016 MyC [place] [address], [address] [place] [address] Andrez Krause PA-C [address] [place] [address] Refill Request Social History Tobacco Use Types Packs/Day Years Used Date Smoking Tobacco: Never Alcohol Use Standard Drinks/Week Comments Yes 0 (1 standard drink = 0.6 oz pur e alcohol) socially Sex and Gender Information Value Date Recorded Sex Assigned at Female 11/04/2018 8:36 AM RIVERBOAT CAPTAIN Gender Identity Female 11/04/2018 8:36 AM RIVERBOAT CAPTAIN Sexual Orientation Straight 11/04/2018 8: 36 AM RIVERBOAT CAPTAIN documented as of this encounter Miscellaneous Notes * Telephone Encounter - Una Berry - 03/26/2016 2:37 PM CDT Patient scheduled appt through [facility] for 03/31 * Telephone Encounter - Josefina Diop RN - 03/25/2016 10:53 AM CDT Per last refill PCP wants to see patient Josefina Diop RN, BSN * Telephone Encounter - Josefina Diop RN - 03/25/2016 10:52 AM CDTMessage from [employer]: Original authorizing provider: LUIS ANTONIO Molina would like a refill of the following medications: citalopram (CELEXA) 20 MG tablet [Andrez Krause PA-C] Preferred pharmacy: [id number] [place] [address] Comment: documented in this encounter Plan of Treatment Not on file documented as of this encounter Visit Diagnoses Diagnosis Adjustment disorder with mixed anxiety and depressed mood documented in this encounter Additional Health Concerns Assessment Noted Time PHQ-9 Depression Total Score: 21 016 9:30 AM CDT documented as of this encounter Care Teams Crew Manager Relationship Specialty Start Date End Date Andrez Krause PA-C PCP - General Physician Ferry Operator - Medical 10/09/15 05/29/21 Andrez Krause PA-C [address] [place] [address] PCP - Assigned PCP 09/13/15 12/14/18 Heaven Brunson PA-C [facility] [address] [place] [address] PCP - General Physician Ferry Operator 05/30/21 Andrez Krause PA-C [address] [facility] [place] [address] Assigned PCP 09/13/15 06/20/22 Mona Tian MD [address] [place], [place] [address] Assigned OBGYN Provider 08/03/20 Brett Torres [facility] [address] [facility] 255 [place], [place] [address] Assigned Behavioral Health Provider 07/14/21 01/02/23 Karen Galvan PA-C [address] [facility] [address] [place] [address] Assigned Sleep Provider 09/01/21 Marie Lawrence, [facility] 5775 [facility] 200 [place], [place] [id number] Assigned MTM Pharmacist 04/05/22 documented as of this encounter
--- OUTSIDE RECORDS SUMMARY | 2024-02-22 13:38 | XMS_ITS | Encounter Summary ---
Author Name Unknown Organization [facility] Address [address] [place] [address] Care Team Providers Care Sheeter Helper Name Role Phone Andrez Krause PA-C Primary Care Provider Andrez Krause PA-C Unavailable +[phone] Andrez Krause PA-C Unavailable [phone] Mona Tian MD Unavailable [phone] Heaven Brunson PA-C Primary Care Provider Brett Torres MD Unavailable [phone] Karen Glavan PA-C Unavailable + [phone] Marie Lawrence [facility] Unavailable [phone] Encounter Details Date Type Department Care Team (Late st Contact Info) Description 10/28/2017 MyC Medical Advice [address], [address] [place] [address] Marnie Mabry MA Social History Tobacco Use Types Packs/Day Years Used Date Smoking Tobacco: Never Smokeless Tobacco: Never Alcohol Use Standard Drinks/Week Comments Yes 0 (1 standard drink = 0.6 oz pur e alcohol) socially Sex and Gender Information Value Date Recorded Sex Assigned at Female 11/04/2018 8:36 AM VEHICLE MAINTENANCE SUPERVISOR Gender Identity Female 11/04/2018 8:36 AM VEHICLE MAINTENANCE SUPERVISOR Sexual Orientation Straight 11/04/2018 8: 36 AM VEHICLE MAINTENANCE SUPERVISOR documented as of this encounter Plan of Treatment Not on file documented as of this encounter Visit Diagnoses Not on filedocumented in this encounter Additional Health Concerns Assessment Noted Time PHQ-9 Depression Total Score: 20 018 1:03 PM VEHICLE MAINTENANCE SUPERVISOR documented as of this encounter Care Teams Sheeter Helper Relationship Specialty Start Date End Date Andrez Krause PA-C PCP - General Physician Respiratory Therapy Director - Medical 10/09/15 05/29/21 Andrez Krause PA-C [address] [place] [address] PCP - Assigned PCP 09/13/15 12/14/18 Heaven Brunson PA-C [facility] [address] [place] [address] PCP - General Physician Respiratory Therapy Director 05/30/21 Andrez Krause PA-C [address] [place] [address] Assigned PCP 09/13/15 06/20/22 Mona Tian MD [address] [place] [address] Assigned OBGYN Provider 08/03/20 Brett Torres [facility] [address] [facility] 255 [place] [address] Assigned Behavioral Health Provider 07/14/21 01/02/23 Karen Galvan PA-C [address] [place] [address] Assigned Sleep Provider 09/01/21 Marie Lawrence, [facility] 5775 [facility] 200 [place] [address] Assigned MTM Pharmacist 04/05/22 documented as of this encounter
--- OUTSIDE RECORDS SUMMARY | 2024-02-22 13:38 | XMS_ITS | Encounter Summary ---
Author Name Unknown Organization [facility] Address [address] [place] [address] Care Team Providers Care Corporate Specialist Name Role Phone Andrez Krause PA-C Primary Care Provider Andrez Krause PA-C Unavailable + [phone] Andrez Krause PA-C Unavailable + [phone] Mona Tian MD Unavailable [phone] Heaven Brunson PA-C Primary Care Provider Brett Torres MD Unavailable [phone] Karen Galvan PA-C Unavailable + [phone] Marie Lawrence [facility] Unavailable [phone] Reason for Visit * Reason Onset Date Comments Forms 04/08/2017 FMLA Encounter Details Date Type Department Care Team (Late st Contact Info) Description 04/08/2017 MyC Medical Advice [address], [address] [place] [address] Andrez Krause PA-C [address] [place] [address] Forms (FMLA) Social History Tobacco Use Types Packs/Day Years Used Date Smoking Tobacco: Never Smokeless Tobacco: Never Alcohol Use Standard Drinks/Week Comments Yes 0 (1 standard drink = 0.6 oz pur e alcohol) socially Sex and Gender Information Value Date Recorded Sex Assigned at Female 11/04/2018 8:36 AM HAIR AND MAKEUP DESIGNER Gender Identity Female 11/04/2018 8:36 AM HAIR AND MAKEUP DESIGNER Sexual Orientation Straight 11/04/2018 8: 36 AM HAIR AND MAKEUP DESIGNER documented as of this encounter Plan of Treatment Not on file documented as of this encounter Visit Diagnoses Not on filedocumented in this encounter Additional Health Concerns Assessment Noted Time PHQ-9 Depression Total Score: 11 017 7:20 AM CDT documented as of this encounter Care Teams Corporate Specialist Relationship Specialty Start Date End Date Andrez Krause PA-C PCP - General Physician Sweatband Maker - Medical 10/09/15 05/29/21 Andrez Krause PA-C [address] [place] [address] PCP - Assigned PCP 09/13/15 12/14/18 Heaven Brunson PA-C [facility] [address] [place] [address] PCP - General Physician Sweatband Maker 05/30/21 Andrez Krause PA-C [address] [place] [address] Assigned PCP 09/13/15 06/20/22 Mona Tian MD [address] [place] [address] Assigned OBGYN Provider 08/03/20 Brett Torres [facility] [address] [place] [address] Assigned Behavioral Health Provider 07/14/21 01/02/23 Karen Galvan PA-C [address] [facility] 103 [place] [address] Assigned Sleep Provider 09/01/21 Marie Lawrence, [facility] 5775 [facility] 200 [place], [place] [address] Assigned MTM Pharmacist 04/05/22 documented as of this encounter
--- OUTSIDE RECORDS SUMMARY | 2024-02-22 13:38 | XMS_ITS | Encounter Summary ---
Author Name Unknown Organization [facility] Address [address] [place] [address] Care Team Providers Care Chemist Steroids Name Role Phone Andrez Krause PA-C Primary Care Provider Andrez Krause PA-C Unavailable +[phone] Andrez Krause PA-C Unavailable [phone] Mona Tian MD Unavailable [phone] Heaven Brunson PA-C Primary Care Provider Brett Torres MD Unavailable [phone] Karen Galvan PA-C Unavailable + [phone] Marie Lawrence [facility] Unavailable [phone] Encounter Details Date Type Department Care Team (Late st Contact Info) Description 12/31/2015 MyC Medical Advice [address], [address] [place] [address] Brittani Caraballo RN Social History Tobacco Use Types Packs/Day Years Used Date Smoking Tobacco: Never Alcohol Use Standard Drinks/Week Comments Yes 0 (1 standard drink = 0.6 oz pur e alcohol) Sex and Gender Information Value Date Recorded Sex Assigned at Female 11/04/2018 8:36 AM PULL OVER Gender Identity Female 11/04/2018 8:36 AM PULL OVER Sexual Orientation Straight 11/04/2018 8: 36 AM PULL OVER documented as of this encounter Plan of Treatment Not on file documented as of this encounter Visit Diagnoses Not on filedocumented in this encounter Additional Health Concerns Assessment Noted Time PHQ-9 Depression Total Score: 21 2 016 8:26 AM CDT documented as of this encounter Care Teams Chemist Steroids Relationship Specialty Start Date End Date Andrez Krause PA-C PCP - General Physician Planer Chain Offbearer - Medical 10/09/15 05/29/21 Andrez Krause PA-C [address] [place] [address] PCP - Assigned PCP 09/13/15 12/14/18 Heaven Brunson PA-C [facility] [address] [place] [address] PCP - General Physician Planer Chain Offbearer 05/30/21 Andrez Krause PA-C [address] [place] [address] Assigned PCP 09/13/15 06/20/22 Mona Tian MD [address] [facility] [place] [address] Assigned OBGYN Provider 08/03/20 Brett Torres [facility] [address] [facility] 255 [place] [address] Assigned Behavioral Health Provider 07/14/21 01/02/23 Karen Galvan PA-C [address] [address] Assigned Sleep Provider 09/01/21 Marie Lawrence, [facility]ARE 5775 [facility] 200 [place] [address] Assigned MTM Pharmacist 04/05/22 documented as of this encounter
--- OUTSIDE RECORDS SUMMARY | 2024-02-22 13:38 | XMS_ITS | Encounter Summary ---
Author Name Unknown Organization [facility] Address [address] [place] [address]. [place] [address] Care Team Providers Care Sealer Sander Name Role Phone Andrez Krause PA-C Primary Care Provider Andrez Krause PA-C Unavailable + [phone] Andrez Krause PA-C Unavailable + [phone] Mona Tian MD Unavailable [phone] Heaven Brunson PA-C Primary Care Provider Brett Torres MD Unavailable [phone] Karen Galvan PA-C Unavailable [phone] Marie Lawrence [facility] Unavailable +[phone] Reason for Referral * Consultation - Closed Specialty Diagnoses / Procedures Referred By Andie t Referred To Contact Diagnoses Migraine without aura and without status migrainosus, not intractable Andrez Krause PA-C [address] [place] [address] [facility] [address] [place] [phone] Referral ID Status Reason Start Date Expiration Date Visits Re quested Visits Authorized [id number] Closed 11/22/2018 11/22/2019 1 1 Comments Your provider has referred you for the following: Consult at [facility]: [facility] Neurology [facility] [email or web address] Please be aware that coverage of these [...] documents/labs given to you for this referral NT TECHNICAL SUPPORT ASSOCIATE Reason for Visit * Reason Onset Date Comments Patient/info Update 11/11/2018 Prior auth f or Aimovig Encounter Details Date Type Department Care Team (Late st Contact Info) Description 11/11/2018 [facility] Medical [address], [address] [place] [address] Andrez Krause PA-C [address] [place] [address] Patient/info Update (Prior auth for Aimovig) Social History Tobacco Use Types Packs/Day Years Used Date Smoking Tobacco: Never Smokeless Tobacco: Never Alcohol Use Standard Drinks/Week Comments Yes 0 (1 standard drink = 0.6 oz pur e alcohol) Social, rare PHQ-2 Answer Date Recorded PHQ-2 Score 6 10/19/2018 Sex and Gender Information Value Date Recorded Sex Assigned at Female 11/04/2018 8:36 AM CLIENT TECHNICAL SUPPORT ASSOCIATE Gender Identity Female 11/04/2018 8:36 AM CLIENT TECHNICAL SUPPORT ASSOCIATE Sexual Orientation Straight 11/04/2018 8: 36 AM CLIENT TECHNICAL SUPPORT ASSOCIATE documented as of this encounter Miscellaneous Notes * Telephone Encounter - Andrez Krause PA-C - 11/22/2018 4:57 PM CLIENT TECHNICAL SUPPORT ASSOCIATE Not sure of her network or where she has been before but will refer where I usually do. Please callher with info. Andrez Arango NT TECHNICAL SUPPORT ASSOCIATE * Telephone Encounter - Nalini Conte RN [...] sent to patient. Nalini Conte RN ?? NT TECHNICAL SUPPORT ASSOCIATE documented in this encounter Plan of Treatment [...] Depression Total Score: 21 019 5:05 PM CLIENT TECHNICAL SUPPORT ASSOCIATE documented as of this encounter Care Teams Sealer Sander Relationship Specialty Start Date End Date Andrez Krause PA-C PCP - General Physician Educational Therapy Teacher - Medical 10/09/15 05/29/21 Andrez Krause PA-C [address] [place] [address] PCP - Assigned PCP 09/13/15 12/14/18 Heaven Brunson PA-C [facility] [address] [place] [address] PCP - General Physician Educational Therapy Teacher 05/30/21 Andrez Krause PA-C [address] [place] [address] Assigned PCP 09/13/15 06/20/22 Mona Tian MD [address] [place] [address] Assigned OBGYN Provider 08/03/20 Brett Torres [facility] [address] [facility] 255 [place], [place] [address] Assigned Behavioral Health Provider 07/14/21 01/02/23 Karen Galvan PA-C [address] [facility] 103 [place] [address] Assigned Sleep Provider 09/01/21 Marie Lawrence, [facility] 5775 [facility] 200 [place], [place] [address] Assigned MTM Pharmacist 04/05/22 documented as of this encounter
--- OUTSIDE RECORDS SUMMARY | 2024-02-22 13:38 | XMS_ITS | Encounter Summary ---
Author Name Unknown Organization [facility] Address [address] [place] [address] Care Team Providers Care Supervisor Silvering Department Name Role Phone Andrez Krause PA-C Primary Care Provider Andrez Krause PA-C Unavailable +[phone] Andrez Krause PA-C Unavailable [phone] Mona Tian MD Unavailable [phone] Heaven Brunson PA-C Primary Care Provider Brett Torres MD Unavailable [phone] Karen Galvan PA-C Unavailable + [phone] Marie Lawrence [facility] Unavailable [phone] Reason for Visit * Reason Onset Date Comments Refill Request 04/29/2018 Encounter Details Date Type Department Care Team (Late st Contact Info) Description 04/29/2018 MyC Refill [facility] [address] [place] [address] Rhonda Middleton PA-C [address] [place] [address] Refill Request Social History Tobacco Use Types Packs/Day Years Used Date Smoking Tobacco: Never Smokeless Tobacco: Never Alcohol Use Standard Drinks/Week Comments Yes 0 (1 standard drink = 0.6 oz pur e alcohol) Social, rare Sex and Gender Information Value Date Recorded Sex Assigned at Female 11/04/2018 8:36 AM INFANT TEACHER Gender Identity Female 11/04/2018 8:36 AM INFANT TEACHER Sexual Orientation Straight 11/04/2018 8: 36 AM INFANT TEACHER documented as of this encounter Miscellaneous Notes * Telephone Encounter - Sweta Danielle RN - 04/29/2018 8:52 AM CDT Called the Pt to discuss refill. LM, waiting callback. Pt is a FM Pt with AP. [facility] provider. Pt needs to follow up with PCP to discuss refills. Please help her schedule when she calls back. Thanks. Sweta Danielle RN -- [facility] Workforce * Telephone Encounter - Sweta Danielle RN - 04/29/2018 8:49 AM CDT[facility] Original authorizing provider: LUIS ANTONIO Mendoza would like a refill of the following medications: erenumab-aooe (AIMOVIG) 70 MG/ML injection [Rhonda Middleton PA-C] Preferred pharmacy: [facility][id number] [facility] [address] [address] Comment: documented in this encounter [...] as of this encounter Care Teams Supervisor Silvering Department Relationship Specialty Start Date End Date Andrez Krause PA-C PCP - General Physician Cookie Breaker - Medical 10/09/15 05/29/21 Andrez Krause PA-C [address] [facility] [place] [address] PCP - Assigned PCP 09/13/15 12/14/18 Heaven Brunson PA-C [facility] [address] [place] [address] PCP - General Physician Cookie Breaker 05/30/21 Andrez Krause PA-C [address] [place] [address] Assigned PCP 09/13/15 06/20/22 Mona Tian MD [address] [place] [address] Assigned OBGYN Provider 08/03/20 Brett Torres [facility] [address] [facility] 255 [place], [place] [address] Assigned Behavioral Health Provider 07/14/21 01/02/23 Karen Galvan PA-C [address] [facility] 103 [place] [address] Assigned Sleep Provider 09/01/21 Marie Lawrence, [facility] 5775 [facility] 200 [place] [address] Assigned MTM Pharmacist 04/05/22 documented as of this encounter
--- OUTSIDE RECORDS SUMMARY | 2024-02-22 13:38 | XMS_ITS | Encounter Summary ---
Author Name Unknown Organization [facility] Address [address] [place] [address] Care Team Providers Care Motorcycle Deliverer Name Role Phone Andrez Krause PA-C Primary Care Provider Andrez Krause PA-C Unavailable + [phone] Andrez Krause PA-C Unavailable [phone] Mona Tian MD Unavailable [phone] Heaven Brunson PA-C Primary Care Provider Brett Torres MD Unavailable [phone] Karen Galvan PA-C Unavailable [phone] Marie Lawrence [facility] Unavailable [phone] Reason for Visit * Reason Onset Date Comments Refill Request 11/02/2018 erenumab-aooe (A IMOVIG) 70 MG/ML injection Encounter Details Date Type Department Care Team (Late st Contact Info) Description 11/02/2018 MyC Refill [address], [address] [place] [address] Andrez Krause PA-C [address] [place] [address] Refill Request (erenumab-aooe (AIMOVIG) 70... Social History Tobacco Use Types Packs/Day Years Used Date Smoking Tobacco: Never Smokeless Tobacco: Never Alcohol Use Standard Drinks/Week Comments Yes 0 (1 standard drink = 0.6 oz pur e alcohol) Social, rare PHQ-2 Answer Date Recorded PHQ-2 Score 6 10/19/2018 Sex and Gender Information Value Date Recorded Sex Assigned at Female 11/04/2018 8:36 AM WELLNESS MANAGER Gender Identity Female 11/04/2018 8:36 AM WELLNESS MANAGER Sexual Orientation Straight 11/04/2018 8: 36 AM WELLNESS MANAGER documented as of this encounter Miscellaneous Notes * Telephone Encounter - Geraldine Chavarria RN - 11/02/2018 5:24 PM CST Routing refill request to provider for review/approval because: Drug not on the [facility] refill protocol Geraldine Chavarria RN, BS Clinical Nurse Triage. NESS MANAGER * Telephone Encounter - Denia Reddy - [...] 01/25/2019) for Med Check. Future Office Visit: NESS MANAGER documented in this encounter Plan of Treatment [...] documented as of this encounter Care Teams Motorcycle Deliverer Relationship Specialty Start Date End Date Andrez Krause PA-C PCP - General Physician Head Kiln Operator - Medical 10/09/15 05/29/21 Andrez Krause PA-C [address] [place] [address] PCP - Assigned PCP 09/13/15 12/14/18 Heaven Brunson PA-C [facility] [address] [place] [address] PCP - General Physician Head Kiln Operator 05/30/21 Andrez Krause PA-C [address] [place] [address] Assigned PCP 09/13/15 06/20/22 Mona Tian MD [address] [place], [place] [address] Assigned OBGYN Provider 08/03/20 Brett Torres [facility] [address] [facility] 255 [place], [place] [address] Assigned Behavioral Health Provider 07/14/21 01/02/23 Karen Galvan PA-C [address] [facility] 103 [place], [place] [address] Assigned Sleep Provider 09/01/21 Marie Lawrence, [facility] 5775 [facility] 200 [place] [address] Assigned MTM Pharmacist 04/05/22 documented as of this encounter
== END 2024-02-22 13:33 | disposition home or self-care (01) ==
LOC: LKVREF 13:33
PROVIDERS: PCP Physician Assistant Medical; Visit Provider Physician Assistant
DX: N92.6 Irregular menstruation, unspecified (principal)
CPT/HCPCS: 84443

== ENCOUNTER 2024-05-02 15:33 | Outpatient (CLI) | payer BC, SELFPAY ==
--- OUTSIDE RECORDS SUMMARY | 2024-05-02 15:35 | XMS_ITS | Clinical Summary ---
Author Organization [facility] Address [place], [place] [address] Care Team Providers Care Steam Meter Reader Name Role Phone Heaven Brunson PA-C Primary Care Provider + [phone] Allergies Active Allergy Reactions Criticality Noted Date [...] Encounters Date Type Department Care Team Description 03/29/2024 1:00 PM CDT Office Visit [facility] [address] [place] [address] Gabriel Josue, DPM Post-op (Right 3 month post op visit, DOS 12/14/23) 03/29/2024 Travel from Last 3 Months Immunizations Name [...] except Serzone Relation Name Status Comments Mother Crystal Social History Tobacco Use Types Packs/Day Years [...] Sign Reading Time Taken Comments Blood Pressure 121/80 03/29/2024 1:05 PM CDT Pulse 81 03/29/2024 1:05 PM CDT Temperature 36.9 ??C (98.5 ??F) 12/16/2023 11:[address] Respiratory Rate 16 05/22/2023 1:51 PM CDT Oxygen Saturation 100% 03/29/2024 1:05 PM CDT Inhaled Oxygen Concentration - - Weight 110.7 kg (244 lb) 01/26/2024 1:20 PM CDT Height 167.6 cm (5' 6) 11/23/2023 2:21 PM TRUANT OFFICER Body Mass Index 39.38 11/23/2023 2:21 PM TRUANT OFFICER Plan of Treatment Health Maintenance Due Date [...] Procedure Name Priority Date/Time Associated Diagnosis Comments HPV THIN PREP Routine 10/21/2021 1:55 PM TRUANT OFFICER from Last 3 Months or Most Recently Relevant to Health Maintenance Results * HPV HIGH RISK (10/21/2021 1:55 PM TRUANT OFFICER) TYPE 16 Negative Negative 10/22/2021 4:34 PM TRUANT OFFICER [facility] TYPE 18 Negative Negative 10/22/2021 4:34 PM TRUANT OFFICER [facility] OTHER HIGH RISK TYPES Negative Negative 10/22/2021 4:34 PM TRUANT OFFICER [facility] Other (Cervical/Vagina l) 10/21/2021 1:55 PM TRUANT OFFICER 10/22/2021 8:18 AM TRUANT OFFICER Narrative [facility] - 10/22/2021 4:34 PM TRUANT OFFICER HPV types 16, 18, 31, 33, 35, 39, 45, 51, 52, 56, 58, 59, 66 and 68 DNA were undetectable or below the pre-set threshold. Methodology: Tamiko Delmar 4800 HPV Test Heaven Brunson PA-C [facility] [address] [place] [address], [place] from Last 3 Months or Most Recently Relevant to Health Maintenance Care Teams Steam Meter Reader Relationship Specialty Start Date End Date Heaven Brunson PA-C [address] [place] [address] PCP - General Emergency Medicine 02/04/22
--- OUTSIDE RECORDS SUMMARY | 2024-05-02 15:36 | XMS_ITS | Patient Health Record ---
Author Organization [facility] Address [address] [place] [address] [address] [place] [address] Care Team Providers Care Drill Press Set Up Operator Name Role Phone Heaven Brunson Primary Care Provider UnavailGraeme Ulrich Unavailable [phone] Luis A Velazco Unavailable Unavailable ALLERGIES Allergen [...] migrainosus (G43.001) Active confirmed Migraine without aura (16339185) Problem Other chronic pain (G89.29) Active confirmed Chronic pain (33852187) Problem Spondylosis without myelopathy or radiculopathy, cervical region (M47.812) Active confirmed Cervical spondylosis without myelopathy (245855593) Problem Headache, unspecified (R51.9) Active confirmed Headache (95251215) PLAN OF TREATMENT No Information Insurance Providers Payer Name Payer Address Payer Phone Subscriber Number Group Number Insured Name Patient Relationship to Insured Coverage Start Date Coverage End Date [facility] [address] [address] [place] [phone] [id number] Starr Remy Self - patient is the insured MEDICAL (GENERAL) HISTORY Medical History History ICD Code Anxiety Depression Headaches Migraines Surgical History Surgery Date(Month/Year) Appendectomy 11/08/2021
--- OUTSIDE RECORDS SUMMARY | 2024-05-02 15:37 | XMS_ITS | Encounter Summary ---
Author Organization [facility] Address [address] [place] [address] Care Team Providers Care Pharmacy Specialist Name Role Phone Andrez Krause PA-C Primary Care Provider Andrez Krause PA-C Unavailable [phone] Mona Tian MD Unavailable [phone] Heaven Brunson PA-C Primary Care Provider Brett Torres MD Unavailable [phone] Karen Galvan PA-C Unavailable + [phone] Marie Lawrence [facility] Unavailable [phone] Reason for Visit * Reason Onset Date Comments Vaginal Problem 02/10/2020 bleeding Encounter Details Date Type Department Care Team (Late st Contact Info) Description 02/10/2020 [facility] [place] [address] [address] Mona Tian MD [facility] [place] [address] Vaginal Problem (bleeding) Social History Tobacco Use Types Packs/Day Years Used Date Smoking Tobacco: Never Smokeless Tobacco: Never Alcohol Use Standard Drinks/Week Comments Yes 0 (1 standard drink = 0.6 oz pur e alcohol) Social, rare PHQ-2 Answer Date Recorded PHQ-2 Score 3 02/17/2019 Sex and Gender Information Value Date Recorded Sex Assigned at Female 11/04/2018 8:36 AM FRANKFURTER INSPECTOR Gender Identity Female 11/04/2018 8:36 AM FRANKFURTER INSPECTOR Sexual Orientation Straight 11/04/2018 8: 36 AM FRANKFURTER INSPECTOR COVID-19 Exposure Response Date Recorded In the [...] documented as of this encounter Care Teams Pharmacy Specialist Relationship Specialty Start Date End Date Andrez Krause PA-C PCP - General Physician Molder Wax Ball - Medical 10/09/15 05/29/21 Heaven Brunson PA-C [facility] [address] [place], [place] [address] PCP - General Physician Molder Wax Ball 05/30/21 Andrez Krause PA-C [address] [place] [address] Assigned PCP 09/13/15 06/20/22 Mona Tian MD [address] [place], [place] [address] Assigned OBGYN Provider 08/03/20 Brett Torres [facility] [address] [facility] 255 [place], [place] [address] Assigned Behavioral Health Provider 07/14/21 01/02/23 Karen Galvan PA-C 6363 [facility] 103 [place] [address] Assigned Sleep Provider 09/01/21 Marie Lawernce, [facility] 5775 [facility] 200 [place], [place] [address] Assigned MTM Pharmacist 04/05/22 documented as of this encounter
--- OUTSIDE RECORDS SUMMARY | 2024-05-02 15:37 | XMS_ITS | Encounter Summary ---
Author Organization [facility] Address [address] [place] [address] Care Team Providers Care Travel Attendants Name Role Phone Andrez Krause PA-C Unavailable [phone] Heaven Brunson PA-C Primary Care Provider Brett Torres MD Unavailable [phone] Karen Galvan PA-C Unavailable + [phone] Marie Lawrence [facility] Unavailable Encounter Details Date Type Department Care Team (Late st Contact Info) Description 12/04/2021 [facility] Advice [facility] [address] [facility] [address] [place] [address] Mona Strauss RN Social History Tobacco Use Types Packs/Day Years Used Date Smoking Tobacco: Never Smokeless Tobacco: Never Alcohol Use Standard Drinks/Week Comments Yes 0 (1 standard drink = 0.6 oz pur e alcohol) Social, rare PHQ-2 Answer Date Recorded PHQ-2 Score 6 07/03/2021 Sex and Gender Information Value Date Recorded Sex Assigned at Female 11/04/2018 8:36 AM FERMENTER CHAMPAGNE Gender Identity Female 11/04/2018 8:36 AM FERMENTER CHAMPAGNE Sexual Orientation Straight 11/04/2018 8: 36 AM FERMENTER CHAMPAGNE documented as of this encounter Plan of Treatment Not on file documented as of this encounter Visit Diagnoses Not on filedocumented in this encounter Additional Health Concerns Assessment Noted Time PHQ-9 Depression Total Score: 24 021 12:59 PM CDT documented as of this encounter Care Teams Travel Attendants Relationship Specialty Start Date End Date Heaven Brunson PA-C [facility] [address] [place] [address] PCP - General Physician Core Checker 05/30/21 Andrez Krause PA-C [address] [facility] [place] [address] Assigned PCP 09/13/15 06/20/22 Brett Torres MD [facility] [address] [facility] 255 [place], [place] [address] Assigned Behavioral Health Provider 07/14/21 01/02/23 Karen Galvan PA-C [address] [facility] [facility] 103 [place] [address] Assigned Sleep Provider 09/01/21 Marie Lawrence, [facility] 5775 [facility] 200 [place], [place] [address] Assigned MTM Pharmacist 04/05/22 documented as of this encounter
--- OUTSIDE RECORDS SUMMARY | 2024-05-02 15:37 | XMS_ITS | Encounter Summary ---
Author Organization [place] Address [address] [place] [address] Care Team Providers Care Milling Planer Operator Name Role Phone Andrez Krause PA-C Unavailable [phone] Heaven Brunson PA-C Primary Care Provider Brett Torres MD Unavailable [phone] Karen Galvan PA-C Unavailable + [phone] Marie Lawrence [facility] Unavailable [phone] Encounter Details Date Type Department Care Team (Late st Contact Info) Description 07/09/2021 [facility] Medical Advice [facility] [address] [facility] [address] [place] [address] Mona Strauss, RN Social History Tobacco Use Types Packs/Day Years Used Date Smoking Tobacco: Never Smokeless Tobacco: Never Alcohol Use Standard Drinks/Week Comments Yes 0 (1 standard drink = 0.6 oz pur e alcohol) Social, rare PHQ-2 Answer Date Recorded PHQ-2 Score 6 07/03/2021 Sex and Gender Information Value Date Recorded Sex Assigned at Female 11/04/2018 8:36 AM CUSTOMER SERVICER Gender Identity Female 11/04/2018 8:36 AM CUSTOMER SERVICER Sexual Orientation Straight 11/04/2018 8: 36 AM CUSTOMER SERVICER COVID-19 Exposure Response Date Recorded In the [...] documented as of this encounter Care Teams Milling Planer Operator Relationship Specialty Start Date End Date Heaven Brunson PA-C [facility] [address] [place] [address] PCP - General Physician Pusher Runner 05/30/21 Andrez Krause PA-C [address] [place] [address] Assigned PCP 09/13/15 06/20/22 Brett Torres MD [facility] [address] [facility] 255 [place], [place] [address] Assigned Behavioral Health Provider 07/14/21 01/02/23 Karen Galvan PA-C [address] [facility] 103 [place], [place] [address] Assigned Sleep Provider 09/01/21 Marie Lawrence, [facility] 5775 [facility] 200 [place], [place] [address] Assigned MTM Pharmacist 04/05/22 documented as of this encounter
--- OUTSIDE RECORDS SUMMARY | 2024-05-02 15:37 | XMS_ITS | Clinical Summary ---
Author Organization [facility] Address [address] [place] [address] Care Team Providers Care Furniture Painter Name Role Phone Heaven Brunson PA-C Primary Care Provider Allergies No known active allergies Medications Medication Sig Dispensed Refills Start Date End Date Status rizatriptan (MAXALT-EDGE RUNNER) 5 MG ODTIndications:Migra ine without aura and [...] 8: 36 AM HAIR AND MAKEUP DESIGNER Last Filed Vital Signs Vital Sign Reading Time Taken Comments Blood Pressure 132/83 07/03/2021 12:55 PM CDT Pulse 91 07/03/2021 12:55 PM CDT Temperature 36.4 ??C (97.6 ??F) 07/03/2021 12:55 PM C DT Respiratory Rate 15 10/30/2019 9:30 PM HAIR AND MAKEUP DESIGNER Oxygen Saturation 99% 10/30/2019 10:45 PM HAIR AND MAKEUP DESIGNER Inhaled Oxygen Concentration - - Weight 112 [...] 07/27/20 18, 11/20/2016, 10/09/2015 PAP 07/27/2021 07/27/2018, 0206/2017, 10/09/2015 PHQ-9 12/31/2021 07/03/2021, 06/12, 06/05/2021, Additional history exists COVID-19 Vaccine ( season) 2023 02/25/2021 INFLUENZA VACCINE (#1) 2024 9 (Declined), 08/27/2010, 08/27/2010, Additional history exists [...] PHQ9 SCORE 18 Genesis Nina - 05/16/2019 [facility] VISIT NOTE Provider Outside OTHER * Pap imaged thin layer diagnostic with HPV (select HPV order below) (07/27/2018 6:32 PM CDT) PAP TYSHAWN Silva Report Patient Name: CHRISTI FUCHS MR#: [id number] Specimen #: [id number] Collected: 07/27/2018 Received: 07/29/2018 Reported: 07/30/2018 13:12 [...] CIERA Larsen (ASCP) Processed and screened at [facility] CLINICAL HISTORY: Currently not having periods, Intra-Uterine Device, Previous ASC-US Date of Last Pap: 11/20/2016, Papanicolaou Test Limitations: ??Cervical cytology is a screening test with limited sensitivity; regular screening is critical for cancer prevention; Pap tests are primarily effective for the diagnosis/preventi on of squamous cell carcinoma, not adenocarcinomas or other cancers. TESTING LAB LOCATION: [address] ??[id number] COLLECTION SITE: Client: ??[facility] Location: [facility] Cytologic material (specimen) 07/27/2018 6:32 PM CDT 07/29/2018 10:09 AM CDT Andrez Augustin PA-C LAB - [facility] C LINICAL SPECIMEN COPATH from Last 3 Months or Most Recently Relevant to Health Maintenance Care Teams Furniture Painter Relationship Specialty Start Date End Date Heaven Brunson PA-C [facility] [address] [place] [employer], [place] [address] PCP - General Physician Benefits Officer 05/30/21
--- OUTSIDE RECORDS SUMMARY | 2024-05-02 15:37 | XMS_ITS | Encounter Summary ---
Author Organization [facility] Address [address] [place] [address]. [place] [address] Care Team Providers Care Visual Education Teacher Name Role Phone Andrez Krause PA-C Primary Care Provider Andrez Krause PA-C Unavailable [phone] Mona Tian MD Unavailable [phone] Heaven Brunson PA-C Primary Care Provider Brett Torres MD Unavailable [phone] Karen Galvan PA-C Unavailable + [phone] Marie Lawrence [facility] Unavailable [phone] Encounter Details Date Type Department Care Team (Late st Contact Info) Description 05/22/2019 MyC Medical Advice [address], [address] [place] [address] Andrez Krause PA-C [address] [place] [address] Social History Tobacco Use Types Packs/Day Years Used Date Smoking Tobacco: Never Smokeless Tobacco: Never Alcohol Use Standard Drinks/Week Comments Yes 0 (1 standard drink = 0.6 oz pur e alcohol) Social, rare PHQ-2 Answer Date Recorded PHQ-2 Score 3 02/17/2019 Sex and Gender Information Value Date Recorded Sex Assigned at Female 11/04/2018 8:36 AM OFFICE COMMUNICATION PROFESSOR Gender Identity Female 11/04/2018 8:36 AM OFFICE COMMUNICATION PROFESSOR Sexual Orientation Straight 11/04/2018 8: 36 AM OFFICE COMMUNICATION PROFESSOR documented as of this encounter Plan of Treatment Not on file documented as of this encounter Visit Diagnoses Not on filedocumented in this encounter Additional Health Concerns Assessment Noted Time PHQ-9 Depression Total Score: 23 019 9:13 AM CDT documented as of this encounter Care Teams Visual Education Teacher Relationship Specialty Start Date End Date Andrez Krause PA-C PCP - General Physician Physician Credentialing Specialist - Medical 10/09/15 05/29/21 Heaven Brunson PA-C [facility] [address] [place] [address] PCP - General Physician Physician Credentialing Specialist 05/30/21 Andrez Krause PA-C [address] [place] [address] Assigned PCP 09/13/15 06/20/22 Mona Tian MD [address] [place], [place] [address] Assigned OBGYN Provider 08/03/20 Brett Torres [facility] [address] [facility] 255 [place], [place] [address] Assigned Behavioral Health Provider 07/14/21 01/02/23 Karen Galvan PA-C 6363 [facility] 103 [place], [place] [address] Assigned Sleep Provider 09/01/21 Marie Lawrence [facility] 5775 [facility] 200 [place] [address] Assigned MTM Pharmacist 04/05/22 documented as of this encounter
--- OUTSIDE RECORDS SUMMARY | 2024-05-02 15:37 | XMS_ITS | Encounter Summary ---
Author Organization [place] Address [address] [place] [address] Care Team Providers Care Computer Game Designer Name Role Phone KrauseAndrez baptiste PA-C Unavailable [phone] Heaven Brunson PA-C Primary Care Provider Brett Torres MD Unavailable Karen Galvan PA-C Unavailable + [phone] Marie Lawrence [facility] Unavailable Encounter Details Date Type Department Care Team (Late st Contact Info) Description 07/03/2021 MyC Medical Advice [facility] [address] [facility] [address] [place] [address] Brett Torres MD [facility] [address] [facility] [address] [place] [address] Social History Tobacco Use Types Packs/Day Years Used Date Smoking Tobacco: Never Smokeless Tobacco: Never Alcohol Use Standard Drinks/Week Comments Yes 0 (1 standard drink = 0.6 oz pur e alcohol) Social, rare PHQ-2 Answer Date Recorded PHQ-2 Score 6 07/03/2021 Sex and Gender Information Value Date Recorded Sex Assigned at Female 11/04/2018 8:36 AM STEAM PRESS TENDER Gender Identity Female 11/04/2018 8:36 AM STEAM PRESS TENDER Sexual Orientation Straight 11/04/2018 8: 36 AM STEAM PRESS TENDER COVID-19 Exposure Response Date Recorded In the [...] documented as of this encounter Care Teams Computer Game Designer Relationship Specialty Start Date End Date Heaven Brunson PA-C [facility] [address] [place] [address] PCP - General Physician Independent Crop Consultant 05/30/21 Andrez Krause PA-C [address] [facility] [place] [address] Assigned PCP 09/13/15 06/20/22 Brett Torres MD [facility] [address] [facility] [address] [place], [place] [address] Assigned Behavioral Health Provider 07/14/21 01/02/23 Kaern Galvan PA-C [address] [facility] 103 [place] [address] Assigned Sleep Provider 09/01/21 Marie Lawrence, [facility] 5775 [facility] 200 [place], [place] [address] Assigned MTM Pharmacist 04/05/22 documented as of this encounter
--- OUTSIDE RECORDS SUMMARY | 2024-05-02 15:37 | XMS_ITS | Continuity of Care Document ---
Author Organization [facility] yohannes Address [address] [facility] [place] [address] Phone Care Team Providers Care Skirt Panel Assembler Name Role Phone Brenna DNP, Pamela Unavailable Unavailab le Allergies, Adverse Reactions, Alerts [...] Providers Copied on Encounter OFFICE/OUTPA TIENT VISIT, [facility], [address], [place], [id number] , tel:[phone] [facility] Widespread pain (chief complaint) Chronic pain syndromeChronic migraine without auraOther long term acute care registered nurse (current) drug therapyPain in right ankle and joints of right footMyalgia, other site 4 Brenna Santiago. [address] [facility] 11, [address], [id number], [place]. tel:[phone] Referring Provider: Julio Ballard, [address] [facility] [place], [address] . tel:[phone] OFFICE/OUTPA TIENT VISIT, [facility], [address], [place], [id number] , tel:[phone] [facility] headache (chief complaint) Chronic migraine w/o aura, not intractable, w/o stat migrNausea 0 Stephanie Man. [address] [facility] 11 [facility] [address], [place], [id number], [place]. tel:[phone] Referring Provider: Eliseo Carlton [facility] [address] [place], [address]. tel:[phone] [facility], [address] [place] [address], [id number] , [place] tel:[phone] [facility] Chronic migraine w/o aura, intractable, w/o stat migr Fredrick-0 0 Nyongesa Magda. [address] [facility] [address], [place], [id number], [place]. tel:[phone] Referring Provider: Eliseo Carlton [facility] [address] [place], [address]. tel:[phone] [facility], [address] [place] [address], [id number] , [place] tel:[phone] [facility] No Information 0 Will Julio. [address] [place] [address], [id number], [place]. tel:[phone] [facility], [address] [place] [address], [id number] , [place] tel:[phone] [facility] Chronic migraine w/o aura, not intractable, w/o stat migrChronic migraine w/o aura, intractable, w/o stat migr Feb-0 0 Nyongesa Magda. [address] [place] [address], [place], [id number], [place]. tel:[phone] Referring Provider: Eliseo Carlton [facility] [address] [place], [address]. tel:[phone] [facility], [address] [place] [address], [id number] , [place] tel:[phone] [facility] [place] No Information 0 Nyongesa Magda. [address] [facility] [address], [place], [id number], [place]. tel:[phone] [facility], [address] [place], [place] [address], [place], [id number] , [place] tel:[phone] [facility] [place] Chronic migraine w/o aura, intractable, w/o stat migr 9 [facility] Magda. [address] [facility] [address], [place], [place], [id number], [place]. tel:[phone] Referring Provider: Eliseo Carlton [facility] [address] [place], [address]. tel:[phone] [facility], [address] [place] [address], [id number] , [place] [phone] [facility] [place] Chronic migraine w/o aura, intractable, w/o stat migr 9 [facility] Magda. [address], [place], [place], [id number], [place]. tel:[phone] Referring Provider: Eliseo Carlton [facility] [address] [place], [address]. tel:[phone] OFFICE/OUTPA TIENT VISIT, [facility], [address] [place] [address], [id number] , [place] tel:[phone] [facility] [place] headache (chief complaint) Chronic migraine w/o aura, not intractable, w/o stat migrChronic pain syndromeOther custodial (current) drug therapy 9 [place]. [address], [place], [place], [id number], [place]. tel:[phone] Referring Provider: Eliseo Carlton [facility] [address] [place], [address]. tel:[phone] [facility], [address] [place] [address], [id number] , [place] tel:[phone] [facility] [place] Chronic migraine w/o aura, not intractable, w/o stat migr May- 9 Stricklandsofia Bajwa. [facility], [address], [place], [address], [place]. tel:[phone] Referring Provider: Eliseo Carlton [facility] [address] [place], [address]. tel:[phone] OFFICE/OUTPA TIENT VISIT, [facility], [address], [place], [id number] , [place] [phone] [facility] headache (chief complaint) Chronic pain syndromeChronic migraine w/o aura, not intractable, w/o stat migrOther long term acute care registered nurse (current) drug therapy [place]. [address] [facility] [address], [place], [id number], [place]. tel:[phone] Referring Provider: Eliseo Carlton [facility] [address] [place], [address]. tel:[phone] OFFICE/OUTPA TIENT VISIT, [facility], [address], [place], [id number] , [place] [phone] [facility] headache (chief complaint) Chronic migraine w/o aura, not intractable, w/o stat migrChronic migraine w/o aura, intractable, w/o stat migrChronic pain syndrome [place]. [address] [facility] [address], [place], [id number], [place]. tel:[phone] Referring Provider: Eliseo Carlton [facility] [address] [place], [address]. tel:[phone] [facility], [address], [place], [id number] , [place] tel:[phone] [facility] Chronic migraine w/o aura, intractable, w/o stat migr Apr- 9 [place]. [address] [facility] [address], [place], [id number], [place]. tel:[phone] Referring Provider: Eliseo Carlton [facility] [address] [place], [address]. tel:[phone] OFFICE/OUTPA TIENT VISIT, [facility], [address], [place], [id number] , [place] tel:[phone] [facility] headache (chief complaint) Chronic pain syndromeChronic migraine w/o aura, not intractable, w/o stat migr [address] [place] [address] [address], [place], [place], [id number], [place]. tel:[phone] Referring Provider: Eliseo Carlton [facility] [address] [place], [address]. tel:[phone] OFFICE/OUTPA TIENT VISIT, [facility], [address], [place], [id number] , [place] tel:[phone] [facility] Headache (chief complaint) Chronic migraine w/o aura, not intractable, w/o stat migrChronic pain syndrome 9 [facility]. [facility], [address], [place], [address], [place]. tel:[phone] Referring Provider: Eliseo Carlton [facility] [address] [place], [address]. tel:[phone] Family History Family Member Type Diagnosis Age At Onset Problem (finding) Family history of chron ic migraines Payers Payer name Insurance type Covered republican ID Josa tiemile(s) [employer] Commercial BL [id number] Social History Type Description Quantity Date Captured [...] Of Treatment Date Type Action Status Goal Update Social History. Due o n due Goal HPV. Due on due Goal Tobacco Use. Due on 024 due Goal Review Allergy List. Due on due Goal Medication Reconciliation. D ue on due Goal Unhealthy drug use screening . Due on due Goal PHQ-9. Due on du e Goal Hepatitis C screening. Due o n due Goal Weight. Due on d ue Goal Height. Due on d ue Goal Lifestyle education regardin g diet completed Referral Ordered: Andrez Krause -Family Medicine (related to Chronic migraine w/o aura, not intractable, w/o stat migr) ordered Referral Referred To: Andrez Krause [facility] [place], [phone] Ordered: Referrals: Family Medicine. Andrez Krause ordered [...] evaluation of the patient. Outside records from [facility] are available for review.Starr is a 28 y/o female here for initial consult for widespread pain. She was previously a patient at [facility] in 2019. Pain gradually started [...] is interested in all treatment options through [facility]. No other concerns today.Treatments Tried: [...] the time. Has seen her neurology at [facility], did not stay with t [facility] due to insurance reasons. Headaches >15 days a monthAnn is interested in any treatment option and would like [facility] to assume management of pain [...] Type Assessment Date assessment Chronic pain syndrome 4 assessment Chronic migraine without aura Larry assessment Other long term acute care registered nurse (current) drug t herapy assessment Pain in right ankle and joints o f right foot assessment Myalgia, other site impression Starr is a 28 y/o fema le here for initial consult for widespread pain. She was previously a patient at [facility] in 2019. Pain gradually started [...] migraines without aura - 15/18 month. Has tried several different migraine medications. [...] without significant benefit to her pain. [place] CONTAINER FINISHING INSPECTOR reviewed and consistent. [place] Judicial criminal backgrounds check completed with no outstanding results or concerning convictions Mental Status Date Cognitive Assessment Orientation - Bahama ed to time, place, person, situation. Patient Care Teams Name Effective Dates (start - stop) Status Members No Information
--- OUTSIDE RECORDS SUMMARY | 2024-05-02 15:37 | XMS_ITS | Encounter Summary ---
Author Organization [place] Address [address] [place] [address] Care Team Providers Care Senior Portfolio Analyst Name Role Phone Andrez Krause PA-C Primary Care Provider Andrez Krause PA-C Unavailable [phone] Mona Tian MD Unavailable [phone] Heaven Brunson PA-C Primary Care Provider Brett Torres MD Unavailable [phone] Karen Galvan PA-C Unavailable [phone] Marie Lawrence [facility] Unavailable [phone] Encounter Details Date Type Department Care Team (Late st Contact Info) Description 04/01/2019 MyC Medical Advice [facility] Women's [address] [place] [address] Tadeo Wilks MD 303 [facility] 100 131 160 [place] [address] Social History Tobacco Use Types Packs/Day Years Used Date Smoking Tobacco: Never Smokeless Tobacco: Never Alcohol Use Standard Drinks/Week Comments Yes 0 (1 standard drink = 0.6 oz pur e alcohol) Social, rare PHQ-2 Answer Date Recorded PHQ-2 Score 3 02/17/2019 Sex and Gender Information Value Date Recorded Sex Assigned at Female 11/04/2018 8:36 AM FARM PRODUCTS SHIPPER Gender Identity Female 11/04/2018 8:36 AM FARM PRODUCTS SHIPPER Sexual Orientation Straight 11/04/2018 8: 36 AM FARM PRODUCTS SHIPPER documented as of this encounter Plan of Treatment Not on file documented as of this encounter Visit Diagnoses Not on filedocumented in this encounter Additional Health Concerns Assessment Noted Time PHQ-9 Depression Total Score: 17 019 8:25 AM CDT documented as of this encounter Care Teams Senior Portfolio Analyst Relationship Specialty Start Date End Date Andrez Krause PA-C PCP - General Physician Hog Sawyer - Medical 10/09/15 05/29/21 Heaven Brunson PA-C [facility] [address] [place], [place] [address] PCP - General Physician Hog Sawyer 05/30/21 Andrez Krause PA-C [address] [place] [address] Assigned PCP 09/13/15 06/20/22 Mona Tian MD [address] [place], [place] [address] Assigned OBGYN Provider 08/03/20 Brett Torres [facility] [address] [facility] 255 [place], [place] [address] Assigned Behavioral Health Provider 07/14/21 01/02/23 Karen Galvan PA-C [address] [facility] 103 [place], [place] [address] Assigned Sleep Provider 09/01/21 Marie Lawrence [facility] 5775 [facility] 200 [place] [address] Assigned MTM Pharmacist 04/05/22 documented as of this encounter
--- OUTSIDE RECORDS SUMMARY | 2024-05-02 15:37 | XMS_ITS | Encounter Summary ---
Author Organization [place] Address [address] [place] [address] Care Team Providers Care Claims Investigator Name Role Phone Andrez Krause PA-C Unavailable [phone] Mona Tian MD Unavailable [phone] Heaven Brunson PA-C Primary Care Provider Brett Torres MD Unavailable [phone] Karen Galvan PA-C Unavailable + [phone] Marie Lawrence [facility] Unavailable [phone] Encounter Details Date Type Department Care Team [...] Sex Assigned at Female 11/04/2018 8:36 AM BUSHEL GIRL Gender Identity Female 11/04/2018 8:36 AM BUSHEL GIRL Sexual Orientation Straight 11/04/2018 8: 36 AM BUSHEL GIRL documented as of this encounter Plan of Treatment Not on file documented as of this encounter Visit Diagnoses Not on filedocumented in this encounter Additional Health Concerns Assessment Noted Time PHQ-9 Depression Total Score: 23 021 9:44 AM CDT documented as of this encounter Care Teams Claims Investigator Relationship Specialty Start Date End Date Heaven Brunson PA-C [facility] [address] [place] [address] PCP - General Physician Eligibility Services Representative 05/30/21 Andrez Krause PA-C [address] [facility] [address] Assigned PCP 09/13/15 06/20/22 Mona Tian MD [address] [place] [address] Assigned OBGYN Provider 08/03/20 Brett Torres [facility] [address] [facility] 255 [place], [place] [address] Assigned Behavioral Health Provider 07/14/21 01/02/23 Karen Galvan PA-C [address] [facility] 103 [place] [address] Assigned Sleep Provider 09/01/21 Marie Lawrence, [facility] 5775 [facility] 200 [place] [address] Assigned MTM Pharmacist 04/05/22 documented as of this encounter
--- OUTSIDE RECORDS SUMMARY | 2024-05-02 15:37 | XMS_ITS | Encounter Summary ---
Author Organization [place] Address [address] [place] [address] Care Team Providers Care Arabic Linguist Name Role Phone Andrez Krause PA-C Primary Care Provider Andrez Krause PA-C Unavailable [phone] Mona Tian MD Unavailable [phone] Heaven Brunson PA-C Primary Care Provider Brett Torres MD Unavailable [phone] Karen Galvan PA-C Unavailable + [phone] Marie Lawrence [facility] Unavailable [phone] Reason for Visit * Reason Onset Date Comments Headache 04/12/2020 Encounter Details Date Type Department Care Team (Late st Contact Info) Description 04/12/2020 MyC Medical Advice [address] [place] [address] Andrez Krause PA-C [address] [place] [address] Headache Social History Tobacco Use Types Packs/Day Years Used Date Smoking Tobacco: Never Smokeless Tobacco: Never Alcohol Use Standard Drinks/Week Comments Yes 0 (1 standard drink = 0.6 oz pur e alcohol) Social, rare PHQ-2 Answer Date Recorded PHQ-2 Score 3 02/17/2019 Sex and Gender Information Value Date Recorded Sex Assigned at Female 11/04/2018 8:36 AM CLAY MODELER Gender Identity Female 11/04/2018 8:36 AM CLAY MODELER Sexual Orientation Straight 11/04/2018 8: 36 AM CLAY MODELER documented as of this encounter Miscellaneous Notes * Telephone Encounter - Bradford Grijalva MD - 04/13/2020 1:44 PM CDT RN OK to sign once pharmacy confirmed Bradford Grijalva MD * Telephone Encounter - Constantin Warren RN - 04/12/2020 10:25 AM CDT [employer] message sent to patient. Constantin Denise RN [...] documented as of this encounter Care Teams Arabic Linguist Relationship Specialty Start Date End Date Andrez Krause PA-C PCP - General Physician Bill Poster Installer - Medical 10/09/15 05/29/21 Heaven Brunson PA-C [facility] [address] [place] [address] PCP - General Physician Bill Poster Installer 05/30/21 Andrez Krause PA-C [address] [place] [address] Assigned PCP 09/13/15 06/20/22 Mona Tian MD [address] [place] [address] Assigned OBGYN Provider 08/03/20 Brett Torres [facility] [address] [facility] 255 [place], [place] [address] Assigned Behavioral Health Provider 07/14/21 01/02/23 Karen Galvan PA-C [address] [facility] 103 [place] [address] Assigned Sleep Provider 09/01/21 Marie Lawrence, [facility] 5775 [facility] 200 [place], [place] [address] Assigned MTM Pharmacist 04/05/22 documented as of this encounter
--- OUTSIDE RECORDS SUMMARY | 2024-05-02 15:37 | XMS_ITS | Encounter Summary ---
Author Organization [place] Address [address] [place] [address]. [place] [address] Care Team Providers Care Commercial Review Appraiser Name Role Phone Andrez Krause PA-C Primary Care Provider Andrez Krause PA-C Unavailable [phone] Mona Tian MD Unavailable [phone] Heaven Brunson PA-C Primary Care Provider Brett Torres MD Unavailable [phone] Karen Galvan PA-C Unavailable [phone] Marie Lawrence [facility] Unavailable [phone] Reason for Visit * Reason Onset Date Comments Medication Refill 04/06/2019 venlafaxine (E FFEXOR-XR) 75 MG 24 hr capsule Encounter Details Date Type Department Care Team (Late st Contact Info) Description 04/05/[address], [address] [place] [address] Andrez Krause PA-C [address] [place] [address] Medication Refill (venlafaxine (EFFEXOR-XR) 75 [...] Sex Assigned at Female 11/04/2018 8:36 AM METHANE GAS COLLECTION SYSTEM OPERATOR Gender Identity Female 11/04/2018 8:36 AM METHANE GAS COLLECTION SYSTEM OPERATOR Sexual Orientation Straight 11/04/2018 8: 36 AM METHANE GAS COLLECTION SYSTEM OPERATOR documented as of this encounter Miscellaneous [...] as of this encounter Care Teams Commercial Review Appraiser Relationship Specialty Start Date End Date Andrez Krause PA-C PCP - General Physician Lens Grinder And Polisher - Medical 10/09/15 05/29/21 Heaven Brunson PA-C [facility] [address] [place] [address] PCP - General Physician Lens Grinder And Polisher 05/30/21 Andrez Krause PA-C [address] [place] [address] Assigned PCP 09/13/15 06/20/22 Mona Tian MD [address] [place], [place] [address] Assigned OBGYN Provider 08/03/20 Brett Torres [facility] [address] [facility] 255 [place] [address] Assigned Behavioral Health Provider 07/14/21 01/02/23 Karen Galvan PA-C [address] [facility] 103 [place] [address] Assigned Sleep Provider 09/01/21 Marie Lawrence, [facility] 5775 [facility] 200 [place] [address] Assigned MTM Pharmacist 04/05/22 documented as of this encounter
--- OUTSIDE RECORDS SUMMARY | 2024-05-02 15:37 | XMS_ITS | Encounter Summary ---
Author Organization [place] Address [address] [place] [address] Care Team Providers Care Materials And Processes Manager Name Role Phone Andrez Krause PA-C Unavailable [phone] Mona Tian MD Unavailable [phone] Heaven Brunson PA-C Primary Care Provider Brett Torres MD Unavailable [phone] Karen Galvan PA-C Unavailable + [phone] Marie Lawrence [facility] Unavailable [phone] Encounter Details Date Type Department Care Team (Late st Contact Info) Description 06/05/2021 [facility] Medical Advice [facility] [address] [facility] [address] [place] [address] Mendel Patricia Social History Tobacco [...] Assigned at Female 11/04/2018 8:36 AM SUPERVISOR HEAT TREATING Gender Identity Female 11/04/2018 8:36 AM SUPERVISOR HEAT TREATING Sexual Orientation Straight 11/04/2018 8: 36 AM SUPERVISOR HEAT TREATING documented as of this encounter Plan of Treatment Not on file documented as of this encounter Visit Diagnoses Not on filedocumented in this encounter Additional Health Concerns Assessment Noted Time PHQ-9 Depression Total Score: 22 06/06/ 021 7:02 AM CDT documented as of this encounter Care Teams Materials And Processes Manager Relationship Specialty Start Date End Date Heaven Brunson PA-C [facility] [address] [place] [address] PCP - General Physician Track Grinder Operator 05/30/21 Andrez Krause PA-C [address] [facility] [place] [address] Assigned PCP 09/13/15 06/20/22 Mona Tian MD [address] [place] [address] Assigned OBGYN Provider 08/03/20 Brett Torres MD [facility] [address] [facility] 255 [place], [place] [address] Assigned Behavioral Health Provider 07/14/21 01/02/23 Karen Galvan PA-C [address] [facility] 103 [place] [address] Assigned Sleep Provider 09/01/21 Marie Lawrence, [facility] 5775 [facility] 200 [place], [place] [address] Assigned MTM Pharmacist 04/05/22 documented as of this encounter
--- OUTSIDE RECORDS SUMMARY | 2024-05-02 15:37 | XMS_ITS | Encounter Summary ---
Author Organization [place] Address [address] [place] [address] Care Team Providers Care Finance And Administration Manager Name Role Phone Andrez Krause PA-C Primary Care Provider Andrez Krause PA-C Unavailable [phone] Mona Tian MD Unavailable [phone] Heaven Brunson PA-C Primary Care Provider Brett Torres MD Unavailable [phone] Karen Galvan PA-C Unavailable + [phone] Marie Lawrence [facility] Unavailable [phone] Encounter Details Date Type Department Care Team (Late st Contact Info) Description 07/13/2020 [facility] [address] [address] [facility] Social History Tobacco Use Types Packs/Day Years Used Date Smoking Tobacco: Never Smokeless Tobacco: Never Alcohol Use Standard Drinks/Week Comments Yes 0 (1 standard drink = 0.6 oz pur e alcohol) Social, rare PHQ-2 Answer Date Recorded PHQ-2 Score 3 02/17/2019 Sex and Gender Information Value Date Recorded Sex Assigned at Female 11/04/2018 8:36 AM SENIOR BI DEVELOPER Gender Identity Female 11/04/2018 8:36 AM SENIOR BI DEVELOPER Sexual Orientation Straight 11/04/2018 8: 36 AM SENIOR BI DEVELOPER documented as of this encounter Plan of Treatment Not on file documented as of this encounter Visit Diagnoses Not on filedocumented in this encounter Additional Health Concerns Assessment Noted Time PHQ-9 Depression Total Score: 23 019 9:13 AM CDT documented as of this encounter Care Teams Finance And Administration Manager Relationship Specialty Start Date End Date Andrez Krause PA-C PCP - General Physician Restaurant Supervisor - Medical 10/09/15 05/29/21 Heaven Brunson PA-C [facility] [address] [place] [address] PCP - General Physician Restaurant Supervisor 05/30/21 Andrez Krause PA-C [address] [place] [address] Assigned PCP 09/13/15 06/20/22 Mona Tian MD [address] [place] [address] Assigned OBGYN Provider 08/03/20 Brett Torres [facility] [address] [facility] 255 [place], [place] [address] Assigned Behavioral Health Provider 07/14/21 01/02/23 Karen Galvan PA-C 6363 [facility] 103 [place] [address] Assigned Sleep Provider 09/01/21 Marie Lawrence [facility] [address] [facility] 200 [place], [place] [address] Assigned MTM Pharmacist 04/05/22 documented as of this encounter
--- OUTSIDE RECORDS SUMMARY | 2024-05-02 15:37 | XMS_ITS | Encounter Summary ---
Author Organization [place] Address [address] [place] [address] Care Team Providers Care Adjunct Art History Instructor Name Role Phone Andrez Krause PA-C Primary Care Provider Andrez Krause PA-C Unavailable [phone] Mona Tian MD Unavailable [phone] Heaven Brunson PA-C Primary Care Provider Brett Torres MD Unavailable [phone] Karen Galvan PA-C Unavailable + [phone] Marie Lawrence [facility] Unavailable [phone] Reason for Visit * Reason Onset Date Comments IUD 12/06/2019 Concerns Encounter Details Date Type Department Care Team (Late st Contact Info) Description 12/06/2019 [facility] [place] [address], [address] [place] [address] Andrez Krause PA-C [address] [place] [address] IUD (Concerns) Social History Tobacco Use Types Packs/Day Years Used Date Smoking Tobacco: Never Smokeless Tobacco: Never Alcohol Use Standard Drinks/Week Comments Yes 0 (1 standard drink = 0.6 oz pur e alcohol) Social, rare PHQ-2 Answer Date Recorded PHQ-2 Score 3 02/17/2019 Sex and Gender Information Value Date Recorded Sex Assigned at Female 11/04/2018 8:36 AM RESOURCE MANAGEMENT SPECIALIST Gender Identity Female 11/04/2018 8:36 AM RESOURCE MANAGEMENT SPECIALIST Sexual Orientation Straight 11/04/2018 8: 36 AM RESOURCE MANAGEMENT SPECIALIST documented as of this encounter Miscellaneous Notes * Telephone Encounter - Andrez Krause PA-C - 12/07/2019 10:42 AM RESOURCE MANAGEMENT SPECIALIST She can come in for a visit. May not need it actually physically checked. Sometimes we can give OCP's or progesterone to stop bleeding that has been prolonged. Phone or evisit may still work for this. Andrez Arango URCE MANAGEMENT SPECIALIST documented in this encounter Plan of Treatment Not on file documented as of this encounter Visit Diagnoses Not on filedocumented in this encounter Additional Health Concerns Assessment Noted Time PHQ-9 Depression Total Score: 23 019 9:13 AM CDT documented as of this encounter Care Teams Adjunct Art History Instructor Relationship Specialty Start Date End Date Andrez Krause PA-C PCP - General Physician Pharmaceutical Assistant - Medical 10/09/15 05/29/21 Heaven Brunson PA-C [facility] [address] [place] [address] PCP - General Physician Pharmaceutical Assistant 05/30/21 Andrez Krause PA-C [address] [place] [address] Assigned PCP 09/13/15 06/20/22 Mona Tian MD [address] [place] [address] Assigned OBGYN Provider 08/03/20 Brett Torres [facility] [address] [place] [address] Assigned Behavioral Health Provider 07/14/21 01/02/23 Karen Galvan PA-C [address] [facility] 103 [place] [address] Assigned Sleep Provider 09/01/21 Marie Lawrence [facility] EPILEPSY CARE 5775 [facility] 200 [place] [address] Assigned MTM Pharmacist 04/05/22 documented as of this encounter
--- OUTSIDE RECORDS SUMMARY | 2024-05-02 15:37 | XMS_ITS | Referral Summary ---
Author Organization [facility] Address [address] [place] [address] Care Team Providers Care Refractory Repairer Name Role Phone Heaven Brunson PA-C Primary Care Provider Allergies No known active allergies Medications Medication Sig Dispensed Refills Start Date End Date Status rizatriptan (MAXALT-OPTICAL EFFECTS LINE UP PERSON) 5 MG ODTIndications:Migra ine without aura and [...] Sex Assigned at Female 11/04/2018 8:36 AM SLITTING MACHINE OPERATOR HELPER Gender Identity Female 11/04/2018 8:36 AM SLITTING MACHINE OPERATOR HELPER Sexual Orientation Straight 11/04/2018 8: 36 AM SLITTING MACHINE OPERATOR HELPER Last Filed Vital Signs Vital Sign Reading Time Taken Comments Blood Pressure 132/83 07/03/2021 12:55 PM CDT Pulse 91 07/03/2021 12:55 PM CDT Temperature 36.4 ??C (97.6 ??F) 07/03/2021 12:55 PM C DT Respiratory Rate 15 10/30/2019 9:30 PM SLITTING MACHINE OPERATOR HELPER Oxygen Saturation 99% 10/30/2019 10:45 PM SLITTING MACHINE OPERATOR HELPER Inhaled Oxygen Concentration - - Weight 112 [...] PHQ9 SCORE 18 Genesis Nina - 05/16/[address] [facility] PAIN [facility]INIC VISIT NOTE Provider Outside OTHER * Pap imaged thin layer diagnostic with HPV (select HPV order below) (07/27/2018 6:32 PM CDT) PAP NIL MIHAELA Silva Report Patient Name: CHRISTI FUCHS MR#: [id number] Specimen #: [id number] Collected: 07/27/2018 Received: 07/29/2018 Reported: 07/30/2018 13:12 [...] CIERA Larsen (ASCP) Processed and screened at [facility], [facility] CLINICAL HISTORY: Currently not having periods, Intra-Uterine Device, Previous ASC-US Date of Last Pap: 11/20/2016, Papanicolaou Test Limitations: ??Cervical cytology is a screening test with limited sensitivity; regular screening is critical for cancer prevention; Pap tests are primarily effective for the diagnosis/preventi on of squamous cell carcinoma, not adenocarcinomas or other cancers. TESTING LAB LOCATION: [address] ??[id number] COLLECTION SITE: Client: ??[facility] Location: [facility] (R) COPATH Cytologic material (specimen) 07/27/2018 6:32 PM CDT 07/29/2018 10:09 AM CDT Andrez JACKSON - OPTIMKali C LINICAL SPECIMEN Performing Organization Address City/State/[facility] Co de Phone Number COPATH from Last 3 Months or Most Recently Relevant to Health Maintenance Care Teams Refractory Repairer Relationship Specialty Start Date End Date Heaven Brunson PA-C [facility] [address] [place] [address] PCP - General Physician Firepot Operator And Tender 05/30/21
--- OUTSIDE RECORDS SUMMARY | 2024-05-02 15:37 | XMS_ITS | Encounter Summary ---
Author Organization [facility] Address [address] [place] [address] Care Team Providers Care Time Recorder Name Role Phone Andrez Krause PA-C Unavailable [phone] Heaven Brunson PA-C Primary Care Provider Brett Torres MD Unavailable [phone] Karen Galvan PA-C Unavailable [phone] Marie Lawrence [facility] Unavailable [phone] Encounter Details Date Type Department Care Team (Late st Contact Info) Description 08/20/2021 [facility] Medical Advice [address] [address] Molly Hinson, [facility] Social History Tobacco Use Types Packs/Day Years Used Date Smoking Tobacco: Never Smokeless Tobacco: Never Alcohol Use Standard Drinks/Week Comments Yes 0 (1 standard drink = 0.6 oz pur e alcohol) Social, rare PHQ-2 Answer Date Recorded PHQ-2 Score 6 07/03/2021 Sex and Gender Information Value Date Recorded Sex Assigned at Female 11/04/2018 8:36 AM PALM GATHERER Gender Identity Female 11/04/2018 8:36 AM PALM GATHERER Sexual Orientation Straight 11/04/2018 8: 36 AM PALM GATHERER documented as of this encounter Plan of Treatment Not on file documented as of this encounter Visit Diagnoses Not on filedocumented in this encounter Additional Health Concerns Assessment Noted Time PHQ-9 Depression Total Score: 24 021 12:59 PM CDT documented as of this encounter Care Teams Time Recorder Relationship Specialty Start Date End Date Heaven Brunsno PA-C [facility] [address] [place] [address] PCP - General Physician Needle Grinder 05/30/21 Andrez Krause PA-C [address] [place] [address] Assigned PCP 09/13/15 06/20/22 Brett Torres [facility] 16410 [facility] 255 [place], [place] [id number] Assigned Behavioral Health Provider 07/14/21 01/02/23 Karen Galvan PA-C [address] [facility] 103 [place], [place] [address] Assigned Sleep Provider 09/01/21 Marie Lawrence, [facility] C[facility] 5775 [facility] 200 [place] [address] Assigned MTM Pharmacist 04/05/22 documented as of this encounter
--- OUTSIDE RECORDS SUMMARY | 2024-05-02 15:37 | XMS_ITS | Encounter Summary ---
Author Organization [place] Address [address] [place] [address]. [place] [address] Care Team Providers Care Forge Tender Name Role Phone Andrez Krause PA-C Primary Care Provider Andrez Krause PA-C Unavailable [phone] Mona Tian MD Unavailable [phone] Heaven Brunson PA-C Primary Care Provider Brett Torres MD Unavailable [phone] Karen Galvan PA-C Unavailable + [phone] Marie Lawrence [facility] Unavailable [phone] Encounter Details Date Type Department Care Team (Late st Contact Info) Description 12/22/2019 [facility] Medical Advice [address], [address] [place] [address] Andrez Krause PA-C [address] [place] [address] Social History Tobacco Use Types Packs/Day Years Used Date Smoking Tobacco: Never Smokeless Tobacco: Never Alcohol Use Standard Drinks/Week Comments Yes 0 (1 standard drink = 0.6 oz pur e alcohol) Social, rare PHQ-2 Answer Date Recorded PHQ-2 Score 3 02/17/2019 Sex and Gender Information Value Date Recorded Sex Assigned at Female 11/04/2018 8:36 AM PERSONNEL RECRUITER Gender Identity Female 11/04/2018 8:36 AM PERSONNEL RECRUITER Sexual Orientation Straight 11/04/2018 8: 36 AM PERSONNEL RECRUITER documented as of this encounter Plan of Treatment Not on file documented as of this encounter Visit Diagnoses Not on filedocumented in this encounter Additional Health Concerns Assessment Noted Time PHQ-9 Depression Total Score: 23 019 9:13 AM CDT documented as of this encounter Care Teams Forge Tender Relationship Specialty Start Date End Date Andrez Krause PA-C PCP - General Physician Director Emergency - Medical 10/09/15 05/29/21 Heaven Brunson PA-C [facility] [address] [place] [address] PCP - General Physician Director Emergency 05/30/21 Andrez Krause PA-C [address] [place] [address] Assigned PCP 09/13/15 06/20/22 Mona Tian MD [address] [place], [place] [address] Assigned OBGYN Provider 08/03/20 Brett Torres [facility] 23071 [facility] 255 [place], [place] [address] Assigned Behavioral Health Provider 07/14/21 01/02/23 Karen Galvan PA-C 6363 [facility] 103 [place], [place] [address] Assigned Sleep Provider 09/01/21 Marie Lawrence [facility] 5775 [facility] 200 [place] [address] Assigned MTM Pharmacist 04/05/22 documented as of this encounter
--- OUTSIDE RECORDS SUMMARY | 2024-05-02 15:37 | XMS_ITS | Encounter Summary ---
Author Organization [facility] Address [address] [place] [address] Care Team Providers Care Soil Sampler Name Role Phone KrauseAndrez baptiste PA-C Unavailable [phone] Heaven Brunson PA-C Primary Care Provider Brett Torres MD Unavailable Karen Galvan PA-C Unavailable + [phone] Marie Lawrence [facility] Unavailable [phone] Encounter Details Date Type Department Care Team (Late st Contact Info) Description 07/25/2021 Telephone [facility] Mental Health & Addiction [place] [id number] [address] Brett Torres MD [facility] [address] [place] [address] 255 [place] [address] Social History Tobacco Use Types Packs/Day Years Used Date Smoking Tobacco: Never Smokeless Tobacco: Never Alcohol Use Standard Drinks/Week Comments Yes 0 (1 standard drink = 0.6 oz pur e alcohol) Social, rare PHQ-2 Answer Date Recorded PHQ-2 Score 6 07/03/2021 Sex and Gender Information Value Date Recorded Sex Assigned at Female 11/04/2018 8:36 AM SIDE LASTER Gender Identity Female 11/04/2018 8:36 AM SIDE LASTER Sexual Orientation Straight 11/04/2018 8: 36 AM SIDE LASTER COVID-19 Exposure Response Date Recorded In the [...] documented as of this encounter Care Teams Soil Sampler Relationship Specialty Start Date End Date Heaven Brunson PA-C [facility] [address] [place] [address] PCP - General Physician Surgical Corsetier 05/30/21 Andrez Krause PA-C [address] [facility] [place] [address] Assigned PCP 09/13/15 06/20/22 Brett Torres MD [facility] 25898 [facility] 255 [place], [place] [address] Assigned Behavioral Health Provider 07/14/21 01/02/23 Karen Galvan PA-C 6363 [facility] 103 [place] [address] Assigned Sleep Provider 09/01/21 Marie Lawrence, [facility] 5775 [facility] 200 [place], [place] [address] Assigned MTM Pharmacist 04/05/22 documented as of this encounter
--- OUTSIDE RECORDS SUMMARY | 2024-05-02 15:37 | XMS_ITS | Encounter Summary ---
Author Organization [facility] Address [address] [place] [address] Care Team Providers Care Car Park Attendant Name Role Phone Andrez Krause PA-C Primary Care Provider Andrez Krause PA-C Unavailable [phone] Mona Tian MD Unavailable [phone] Heaven Brunson PA-C Primary Care Provider Brett Torres MD Unavailable [phone] Karen Galvan PA-C Unavailable + [phone] Marie Lawrence [facility] Unavailable [phone] Encounter Details Date Type Department Care Team [...] Sex Assigned at Female 11/04/2018 8:36 AM VP PRODUCT MARKETING Gender Identity Female 11/04/2018 8:36 AM VP PRODUCT MARKETING Sexual Orientation Straight 11/04/2018 8: 36 AM VP PRODUCT MARKETING documented as of this encounter Plan of Treatment Not on file documented as of this encounter Visit Diagnoses Not on filedocumented in this encounter Additional Health Concerns Assessment Noted Time PHQ-9 Depression Total Score: 23 05/05/ 019 9:13 AM CDT documented as of this encounter Care Teams Car Park Attendant Relationship Specialty Start Date End Date Andrez Krause PA-C PCP - General Physician Recycling Program Manager - Medical 10/09/15 05/29/21 Heaven Brunson PA-C [facility] [address] [place] [address] PCP - General Physician Recycling Program Manager 05/30/21 Andrez Krause PA-C [address] [facility] [place] [address] Assigned PCP 09/13/15 06/20/22 Mona Tian MD [address] [place], [place] [address] Assigned OBGYN Provider 08/03/20 Brett Torres [facility] 96307 [facility] 255 [place], [place] [address] Assigned Behavioral Health Provider 07/14/21 01/02/23 Karen Galvan PA-C [address] [facility] 103 [place], [place] [address] Assigned Sleep Provider 09/01/21 Marie Lawrence, [facility] 5775 [facility] 200 [place], [place] [address] Assigned MTM Pharmacist 04/05/22 documented as of this encounter
--- OUTSIDE RECORDS SUMMARY | 2024-05-02 15:37 | XMS_ITS | Encounter Summary ---
Author Organization [place] Address [address] [place] [address] Care Team Providers Care Program Services Assistant Name Role Phone Andrez Krause PA-C Primary Care Provider Andrez Krause PA-C Unavailable [phone] Mona Tian MD Unavailable [phone] Heaven Brunson PA-C Primary Care Provider Brett Torres MD Unavailable [phone] Karen Galvan PA-C Unavailable + [phone] Marie Lawrence [facility] Unavailable [phone] Reason for Visit * Reason Onset Date Comments Medication Question 07/02/2020 Encounter Details Date Type Department Care Team (Late st Contact Info) Description 07/02/2020 [facility] [place] Medical Advice [address] [address] Mona Tian MD [facility] [place] [address] Medication Question Social History Tobacco Use Types Packs/Day Years Used Date Smoking Tobacco: Never Smokeless Tobacco: Never Alcohol Use Standard Drinks/Week Comments Yes 0 (1 standard drink = 0.6 oz pur e alcohol) Social, rare PHQ-2 Answer Date Recorded PHQ-2 Score 3 02/17/2019 Sex and Gender Information Value Date Recorded Sex Assigned at Female 11/04/2018 8:36 AM RN ACUTE DIALYSIS Gender Identity Female 11/04/2018 8:36 AM RN ACUTE DIALYSIS Sexual Orientation Straight 11/04/2018 8: 36 AM RN ACUTE DIALYSIS documented as of this encounter Miscellaneous Notes [...] documented as of this encounter Care Teams Program Services Assistant Relationship Specialty Start Date End Date Andrez Krause PA-C PCP - General Physician Oncology Account Specialist - Medical 10/09/15 05/29/21 Heaven Brunson PA-C [facility] [address] [place] [address] PCP - General Physician Oncology Account Specialist 05/30/21 Andrez Krause PA-C [address] [place] [address] Assigned PCP 09/13/15 06/20/22 Mona Tian MD [address] [place] [address] Assigned OBGYN Provider 08/03/20 Brett Torres [facility] 51316 [facility] 255 [place], [place] [address] Assigned Behavioral Health Provider 07/14/21 01/02/23 Karen Galvan PA-C 6363 [facility] 103 [place] [address] Assigned Sleep Provider 09/01/21 Marie Lawrence [facility] 5775 [facility] 200 [place], [place] [address] Assigned MTM Pharmacist 04/05/22 documented as of this encounter
--- OUTSIDE RECORDS SUMMARY | 2024-05-02 15:38 | XMS_ITS | Encounter Summary ---
Author Organization [facility] Address [address] [place] [address] Care Team Providers Care Lease Administration Analyst Name Role Phone Andrez Krause PA-C Primary Care Provider Andrez Krause PA-C Unavailable + [phone] Andrez Krause PA-C Unavailable + [phone] Mona Tian MD Unavailable [phone] Heaven Brunson PA-C Primary Care Provider Brett Torres MD Unavailable [phone] Karen Galvan PA-C Unavailable + [phone] Marie Lawrence [facility] Unavailable [phone] Reason for Visit * Reason Onset Date Comments Mental Health Problem 09/11/2017 Encounter Details Date Type Department Care Team (Late st Contact Info) Description 09/11/2017 [facility] Medical Advice [address], [address] [place] [address] Andrez Krause PA-C [address] [place] [address] Mental Health Problem Social History Tobacco Use Types Packs/Day Years Used Date Smoking Tobacco: Never Smokeless Tobacco: Never Alcohol Use Standard Drinks/Week Comments Yes 0 (1 standard drink = 0.6 oz pur e alcohol) socially Sex and Gender Information Value Date Recorded Sex Assigned at Female 11/04/2018 8:36 AM ELECTRIC SERVICEMAN Gender Identity Female 11/04/2018 8:36 AM ELECTRIC SERVICEMAN Sexual Orientation Straight 11/04/2018 8: 36 AM ELECTRIC SERVICEMAN documented as of this encounter Plan of Treatment Not on file documented as of this encounter Visit Diagnoses Not on filedocumented in this encounter Additional Health Concerns Assessment Noted Time PHQ-9 Depression Total Score: 25 017 7:54 AM ELECTRIC SERVICEMAN documented as of this encounter Care Teams Lease Administration Analyst Relationship Specialty Start Date End Date Andrez Krause PA-C PCP - General Physician Dietetic Aide - Medical 10/09/15 05/29/21 Andrez Krause PA-C [address] [place] [address] PCP - Assigned PCP 09/13/15 12/14/18 Heaven Brunson PA-C [facility] [address] [place] [address] PCP - General Physician Dietetic Aide 05/30/21 Andrez Krause PA-C [address] [place] [address] Assigned PCP 09/13/15 06/20/22 Mona Tian MD [address] [place] [address] Assigned OBGYN Provider 08/03/20 Brett Torres [facility] [address] [address] Assigned Behavioral Health Provider 07/14/21 01/02/23 Karen Galvan PA-C [address] [facility] [address] [place] [address] Assigned Sleep Provider 09/01/21 Marie Lawrence, [facility] 5775 [facility] 200 [place], [place] [address] Assigned MTM Pharmacist 04/05/22 documented as of this encounter
--- OUTSIDE RECORDS SUMMARY | 2024-05-02 15:38 | XMS_ITS | Encounter Summary ---
Author Organization [place] Address [address] [place] [address] Care Team Providers Care Cake Froster Name Role Phone Andrez Krause PA-C Primary Care Provider Andrez Krause PA-C Unavailable + [phone] Andrez Krause PA-C Unavailable + [phone] Mona Tian MD Unavailable [phone] Heaven Brunson PA-C Primary Care Provider Brett Torres MD Unavailable [phone] Karen Galvan PA-C Unavailable + [phone] Marie Lwarence [facility] Unavailable [phone] Encounter Details Date Type Department Care Team (Late st Contact Info) Description 06/11/2016 [facility] Medical Advice [address], [address] [place] [address] Josefina Diop, HOME CARE ATTENDANT TOASTER ELEMENT REPAIRER [address] [place], [place] [address] Social History Tobacco Use Types Packs/Day Years Used Date Smoking Tobacco: Never Smokeless Tobacco: Never Alcohol Use Standard Drinks/Week Comments Yes 0 (1 standard drink = 0.6 oz pur e alcohol) socially Sex and Gender Information Value Date Recorded Sex Assigned at Female 11/04/2018 8:36 AM NURSING PROGRAM COORDINATOR Gender Identity Female 11/04/2018 8:36 AM NURSING PROGRAM COORDINATOR Sexual Orientation Straight 11/04/2018 8: 36 AM NURSING PROGRAM COORDINATOR documented as of this encounter Plan of Treatment Not on file documented as of this encounter Visit Diagnoses Not on filedocumented in this encounter Additional Health Concerns Assessment Noted Time PHQ-9 Depression Total Score: 25 016 7:14 AM CDT documented as of this encounter Care Teams Cake Froster Relationship Specialty Start Date End Date Andrez Krause PA-C PCP - General Physician Support Technician - Medical 10/09/15 05/29/21 Andrez Krause PA-C [address] [place] [address] PCP - Assigned PCP 09/13/15 12/14/18 Heaven Brunson PA-C [facility] [address], [place] [address] PCP - General Physician Support Technician 05/30/21 Andrez Krause PA-C [address] [place] [address] Assigned PCP 09/13/15 06/20/22 Mona Tian MD [address] [place] [address] Assigned OBGYN Provider 08/03/20 Brett Torres [facility] 43374 [facility] 255 [place], [place] [address] Assigned Behavioral Health Provider 07/14/21 01/02/23 Karen Galvan PA-C [address] [address] Assigned Sleep Provider 09/01/21 Marie Lawrence, [facility] 5775 [facility] 200 [place], [place] [address] Assigned MTM Pharmacist 04/05/22 documented as of this encounter
--- OUTSIDE RECORDS SUMMARY | 2024-05-02 15:38 | XMS_ITS | Encounter Summary ---
Author Organization [place] Address [address] [place] [address] Care Team Providers Care Assistant Media Planner Name Role Phone Andrez Krause PA-C Primary Care Provider Andrez Krause PA-C Unavailable [phone] Mona Tian MD Unavailable [phone] Heaven Brunson PA-C Primary Care Provider Brett Torres MD Unavailable [phone] Karen Galvan PA-C Unavailable + [phone] Marie Lawrence [facility] Unavailable +[phone] Reason for Visit * Reason Onset Date Comments Refill Request 01/10/2019 Emgality Encounter Details Date Type Department Care Team (Late st Contact Info) Description 01/10/2019 MyC Medical Advice [address], [address] [place] [address] Andrez Krause PA-C [address] [place] [address] Refill Request (Emgality) Social History Tobacco Use Types Packs/Day Years Used Date Smoking Tobacco: Never Smokeless Tobacco: Never Alcohol Use Standard Drinks/Week Comments Yes 0 (1 standard drink = 0.6 oz pur e alcohol) Social, rare PHQ-2 Answer Date Recorded PHQ-2 Score 6 10/19/2018 Sex and Gender Information Value Date Recorded Sex Assigned at Female 11/04/2018 8:36 AM DIRECTOR Gender Identity Female 11/04/2018 8:36 AM DIRECTOR Sexual Orientation Straight 11/04/2018 8: 36 AM DIRECTOR documented as of this encounter Miscellaneous Notes [...] (EMGALITY) 120 MG/ML injection Class: E-Prescribe Order: [id number] E-Prescribing Status: Receipt confirmed by pharmacy (12/16/2018 12:57 PM DIRECTOR) Last OV 2.14.19 for migraine, received Toradol inj and prednisone Anrdez Krause PA-C Physician Forest And Conservation Worker Signed Creation Time: 12/16/2018 12:56 PM OK, first dose is to do 240mg followed by 120mg monthly after that. I'll do the first Rx now. ?? Thanks! Nalini Bunn, CHET Registered Nurse Signed Creation Time: 12/16/2018 12:06 PM Please approve rx for EMGALITY as patient is willing to give it a try. She will pick up worker the card to you have provider for the 12 month free. ?? Nalini Conte RN LM for pt to schedule appt with provider to review medication Geraldine Chavarria RN, BS Clinical Nurse Triage. * Telephone Encounter - Jeanne Phillips MD - 01/10/2019 9:35 AM CDT She has not see the provider for this rx. She ordered via [facility] about 1 month ago. [facility]. Thank you * Telephone Encounter - Nalini Conte RN - 01/10/2019 8:52 AM CDT Emgality 120mg/ml Last Written Prescription Date: 12/16/2018 Last Fill Quantity: 2ml, # refills: 0 Last Office Visit: 11/25/2018 Future Office visit: Routing refill request to provider for review/approval because: Drug not on the G, P or [facility] refill protocol or controlled substance [...] Depression Total Score: 21 019 5:05 PM DIRECTOR documented as of this encounter Care Teams Assistant Media Planner Relationship Specialty Start Date End Date Andrez Krause PA-C PCP - General Physician Forest And Conservation Worker - Medical 10/09/15 05/29/21 Heaven Brunson PA-C [facility] [address] [place] [address] PCP - General Physician Forest And Conservation Worker 05/30/21 Andrez Krause PA-C [address] [place] [address] Assigned PCP 09/13/15 06/20/22 Mona Tian MD [address] [place], [place] [address] Assigned OBGYN Provider 08/03/20 Brett Torres [facility] [address] [facility] 255 [place] [address] Assigned Behavioral Health Provider 07/14/21 01/02/23 Karen Galvan PA-C [address] [facility] 103 [place], [place] [address] Assigned Sleep Provider 09/01/21 Marie Lawrence, [facility] 5775 [facility] 200 [place] [address] Assigned MTM Pharmacist 04/05/22 documented as of this encounter
--- OUTSIDE RECORDS SUMMARY | 2024-05-02 15:38 | XMS_ITS | Encounter Summary ---
Author Organization [place] Address [address] [place] [address] Care Team Providers Care Trimming Machine Operator Name Role Phone Andrez Krause PA-C Primary Care Provider Andrez Krause PA-C Unavailable +[phone] Mona Tian MD Unavailable [phone] Heaven Brunson PA-C Primary Care Provider Brett Torres MD Unavailable [phone] Karen Galvan PA-C Unavailable + [phone] Marie Lawrence [facility] Unavailable [phone] Reason for Visit * Reason Onset Date Comments Headache 03/20/2019 Encounter Details Date Type Department Care Team (Late st Contact Info) Description 03/20/2019 MyC Medical Advice [facility] [address] [place] [address] Tadeo Wilks MD [address] [facility] 100 [address] 160 [place], [place] [address] Headache Social History Tobacco Use Types Packs/Day Years Used Date Smoking Tobacco: Never Smokeless Tobacco: Never Alcohol Use Standard Drinks/Week Comments Yes 0 (1 standard drink = 0.6 oz pur e alcohol) Social, rare PHQ-2 Answer Date Recorded PHQ-2 Score 3 02/17/2019 Sex and Gender Information Value Date Recorded Sex Assigned at Female 11/04/2018 8:36 AM SUBCONTRACT MANAGER Gender Identity Female 11/04/2018 8:36 AM SUBCONTRACT MANAGER Sexual Orientation Straight 11/04/2018 8: 36 AM SUBCONTRACT MANAGER documented as of this encounter Miscellaneous [...] with any surgical surgeries Tammie Pryor R.N. [facility] documented in this encounter Plan of Treatment Not on file documented as of this encounter Visit Diagnoses Not on filedocumented in this encounter Additional Health Concerns Assessment Noted Time PHQ-9 Depression Total Score: 17 019 8:25 AM CDT documented as of this encounter Care Teams Trimming Machine Operator Relationship Specialty Start Date End Date Andrez Krause PA-C PCP - General Physician Sustainability Analyst - Medical 10/09/15 05/29/21 Heaven Brunson PA-C [facility] [address] [place] [address] PCP - General Physician Sustainability Analyst 05/30/21 Andrez Krause PA-C [address] [place] [address] Assigned PCP 09/13/15 06/20/22 Mona Tian MD [address] [place] [address] Assigned OBGYN Provider 08/03/20 Brett Torres [facility] [address] [facility] [address] [place], [place] [address] Assigned Behavioral Health Provider 07/14/21 01/02/23 Karen Galvan PA-C [address] [facility] 103 [place] [address] Assigned Sleep Provider 09/01/21 Marie Lawrence, [facility] 5775 [facility] 200 [place], [place] [id number] Assigned MTM Pharmacist 04/05/22 documented as of this encounter
--- OUTSIDE RECORDS SUMMARY | 2024-05-02 15:38 | XMS_ITS | Encounter Summary ---
Author Organization [facility] Address [address] [place] [address] Care Team Providers Care Aerial Photographer Name Role Phone Andrez Krause PA-C Primary Care Provider Andrez Kruase PA-C Unavailable [phone] Andrez Krause PA-C Unavailable [phone] Mona Tian MD Unavailable [phone] Heaven Brunson PA-C Primary Care Provider Brett Torres MD Unavailable [phone] Karen Galvan PA-C Unavailable + [phone] Marie Lawrence [facility] Unavailable [phone] Encounter Details Date Type Department Care Team (Late st Contact Info) Description 11/04/2017 MyC Medical Advice [address], [address] [place] [address] Marnie Mabry MA Social History Tobacco Use Types Packs/Day Years Used Date Smoking Tobacco: Never Smokeless Tobacco: Never Alcohol Use Standard Drinks/Week Comments Yes 0 (1 standard drink = 0.6 oz pur e alcohol) socially Sex and Gender Information Value Date Recorded Sex Assigned at Female 11/04/2018 8:36 AM CROWNING INSPECTOR Gender Identity Female 11/04/2018 8:36 AM CROWNING INSPECTOR Sexual Orientation Straight 11/04/2018 8: 36 AM CROWNING INSPECTOR documented as of this encounter Plan of Treatment Not on file documented as of this encounter Visit Diagnoses Not on filedocumented in this encounter Additional Health Concerns Assessment Noted Time PHQ-9 Depression Total Score: 19 01/23/2 018 9:18 AM CROWNING INSPECTOR documented as of this encounter Care Teams Aerial Photographer Relationship Specialty Start Date End Date Andrez Krause PA-C PCP - General Physician Senior Sql Server Developer - Medical 10/09/15 05/29/21 Andrez Krause PA-C [address] [place] [address] PCP - Assigned PCP 09/13/15 12/14/18 Heaven Brunson PA-C [facility] [address] [place] [address] PCP - General Physician Senior Sql Server Developer 05/30/21 Andrez Krause PA-C [address] [place] [address] Assigned PCP 09/13/15 06/20/22 Mona Tian MD [address] [place] [address] Assigned OBGYN Provider 08/03/20 Brett Torres [facility] [address] [facility] [address] [place] [address] Assigned Behavioral Health Provider 07/14/21 01/02/23 Karen Galvan PA-C [address] [address] Assigned Sleep Provider 09/01/21 Marie Lawrence, [facility] [address] [address] Assigned MTM Pharmacist 04/05/22 documented as of this encounter
--- OUTSIDE RECORDS SUMMARY | 2024-05-02 15:38 | XMS_ITS | Encounter Summary ---
Author Organization [place] Address [address] [place] [address] Care Team Providers Care Certified Medical Records Coder Name Role Phone Andrez Krause PA-C Primary Care Provider Andrez Krause PA-C Unavailable [phone] Andrez Krause PA-C Unavailable [phone] Mona Tian MD Unavailable [phone] Heaven Brunson PA-C Primary Care Provider Brett Torres MD Unavailable [phone] Karen Galvan PA-C Unavailable + [phone] Marie Lawrence [facility] Unavailable [phone] Reason for Visit * Reason Comments Medication Refill gabapentin (NEURONTI N) 100 MG capsule Encounter Details Date Type Department Care Team (Late st Contact Info) Description 01/16/[address], [address] [place] [address] Andrez Krause PA-C [address] [place] [address] Medication Refill (gabapentin (NEURONTIN) 100 MG capsule) Social History Tobacco Use Types Packs/Day Years Used Date Smoking Tobacco: Never Smokeless Tobacco: Never Alcohol Use Standard Drinks/Week Comments Yes 0 (1 standard drink = 0.6 oz pur e alcohol) socially Sex and Gender Information Value Date Recorded Sex Assigned at Female 11/04/2018 8:36 AM FINANCIAL SYSTEMS ADMINISTRATOR Gender Identity Female 11/04/2018 8:36 AM FINANCIAL SYSTEMS ADMINISTRATOR Sexual Orientation Straight 11/04/2018 8: 36 AM FINANCIAL SYSTEMS ADMINISTRATOR documented as of this encounter Miscellaneous Notes * Telephone Encounter - Denia Reddy - 01/17/2017 9:02 AM CDT gabapentin (NEURONTIN) 100 MG capsule Sig: Take 1 capsule (100 mg) by mouth At Bedtime Last Written Prescription Date: 12/18/16 Last Quantity: 30, # refills: 0 Last Office Visit with [facility] [place] or [employer] prescribing provider: 01/15/2017 Creatinine Date Value Ref [...] for review/approval because: Drug not on the [facility] [place] or [employer] refill protocol or controlled substance TAVO Cesar [...] Depression Total Score: 24 017 7:05 AM FINANCIAL SYSTEMS ADMINISTRATOR documented as of this encounter Care Teams Certified Medical Records Coder Relationship Specialty Start Date End Date Andrez Krause PA-C PCP - General Physician Heavy Threader - Medical 10/09/15 05/29/21 Andrez Krause PA-C [address] [place] [address] PCP - Assigned PCP 09/13/15 12/14/18 Heaven Brunson PA-C [facility] [address] [place] [address] PCP - General Physician Heavy Threader 05/30/21 Andrez Krause PA-C [address] [facility] [place] [address] Assigned PCP 09/13/15 06/20/22 Mona Tian MD [address] [place] [address] Assigned OBGYN Provider 08/03/20 Brett Torres [facility] [address] [facility] 255 [place], [place] [address] Assigned Behavioral Health Provider 07/14/21 01/02/23 Karen Galvan PA-C [address] [facility] 103 [place] [address] Assigned Sleep Provider 09/01/21 Marie Lawrence, [facility] 5775 [facility] 200 [place], [place] [id number] Assigned MTM Pharmacist 04/05/22 documented as of this encounter
--- OUTSIDE RECORDS SUMMARY | 2024-05-02 15:38 | XMS_ITS | Encounter Summary ---
Author Organization [place] Address [address] [place] [address]. [place] [address] Care Team Providers Care Drill Press Set Up Operator Name Role Phone Andrez Krause PA-C Primary Care Provider Andrez Krause PA-C Unavailable + [phone] Andrez Krause PA-C Unavailable + [phone] Mona Tian MD Unavailable [phone] Heaven Brunson PA-C Primary Care Provider Brett Torres MD Unavailable [phone] Karen Galvan PA-C Unavailable [phone] Marie Lawrence [facility] Unavailable [phone] Reason for Referral * Consultation - Closed Specialty Diagnoses / Procedures Referred By Andie t Referred To Contact Diagnoses Migraine without aura and without status migrainosus, not intractable Andrez Krause PA-C [address] [place] [address] [facility] [address] [place] [address] Referral ID Status Reason Start Date Expiration Date Visits Re quested Visits Authorized [id number] Closed 11/22/2018 11/22/2019 1 1 Comments Your provider has referred you for the following: Consult at [facility]: [facility] [email or web address] Please be aware that coverage [...] where they were done to arrange for steel pickler prior to your scheduled appointment. (2) List of current medications (3) This referral request (4) Any documents/labs given to you for this referral Y ENGINEER Reason for Visit * Reason Onset Date Comments Patient/info Update 11/11/2018 Prior auth f or [employer] Encounter Details Date Type Department Care Team (Late st Contact Info) Description 11/11/2018 [facility] [place] [address], [facility] 100 [place] [address] Andrez Krause PA-C [address] [place] [address] Patient/info Update (Prior auth for Aimovig) Social History Tobacco Use Types Packs/Day Years Used Date Smoking Tobacco: Never Smokeless Tobacco: Never Alcohol Use Standard Drinks/Week Comments Yes 0 (1 standard drink = 0.6 oz pur e alcohol) Social, rare PHQ-2 Answer Date Recorded PHQ-2 Score 6 10/19/2018 Sex and Gender Information Value Date Recorded Sex Assigned at Female 11/04/2018 8:36 AM FERRY ENGINEER Gender Identity Female 11/04/2018 8:36 AM FERRY ENGINEER Sexual Orientation Straight 11/04/2018 8: 36 AM FERRY ENGINEER documented as of this encounter Miscellaneous Notes * Telephone Encounter - Andrez Krause PA-C - 11/22/2018 4:57 PM FERRY ENGINEER Not sure of her network or where she has been before but will refer where I usually do. Please callher with info. Andrez Arango Y ENGINEER * Telephone Encounter - Nalini Conte RN [...] sent to patient. Nalini Conte RN ?? Y ENGINEER documented in this encounter Plan of Treatment [...] Depression Total Score: 21 019 5:05 PM FERRY ENGINEER documented as of this encounter Care Teams Drill Press Set Up Operator Relationship Specialty Start Date End Date Andrez Krause PA-C PCP - General Physician Nutter Up - Medical 10/09/15 05/29/21 Andrez Krause PA-C [address] [facility] [place] [address] PCP - Assigned PCP 09/13/15 12/14/18 Heaven Brunson PA-C [facility] [address] [place] [address] PCP - General Physician Nutter Up 05/30/21 Andrez Krause PA-C [address] [place] [address] Assigned PCP 09/13/15 06/20/22 Mona Tian MD [address] [place], [place] [address] Assigned OBGYN Provider 08/03/20 Brett Torres [facility] [address] [facility] 255 [place], [place] [address] Assigned Behavioral Health Provider 07/14/21 01/02/23 Karen Galvan PA-C [address] [facility] 103 [place] [address] Assigned Sleep Provider 09/01/21 Marie Lawrence [facility] 5775 [facility] 200 [place], [place] [address] Assigned MTM Pharmacist 04/05/22 documented as of this encounter
--- OUTSIDE RECORDS SUMMARY | 2024-05-02 15:38 | XMS_ITS | Encounter Summary ---
Author Organization [place] Address [address] [place] [address] Care Team Providers Care Tip Bander Name Role Phone Andrez Kruase PA-C Primary Care Provider Andrez Krause PA-C Unavailable + [phone] Andrez Krause PA-C Unavailable + [phone] Mona Tian MD Unavailable [phone] Heaven Brunson PA-C Primary Care Provider Brett Torres MD Unavailable [phone] Karen Galvan PA-C Unavailable + [phone] Marie Lawrence [facility] Unavailable [phone] Reason for Visit * Reason Onset Date Comments Refill Request 03/23/2016 Encounter Details Date Type Department Care Team (Late st Contact Info) Description 03/23/2016 Tristen Hussein [address], [address] [place] [address] Andrez Krause PA-C [address] [place] [address] Refill Request Social History Tobacco Use Types Packs/Day Years Used Date Smoking Tobacco: Never Alcohol Use Standard Drinks/Week Comments Yes 0 (1 standard drink = 0.6 oz pur e alcohol) socially Sex and Gender Information Value Date Recorded Sex Assigned at Female 11/04/2018 8:36 AM PALM AND BACK FORGER Gender Identity Female 11/04/2018 8:36 AM PALM AND BACK FORGER Sexual Orientation Straight 11/04/2018 8: 36 AM PALM AND BACK FORGER documented as of this encounter Miscellaneous Notes * Telephone Encounter - Una Berry - 03/26/2016 2:37 PM CDT Patient scheduled appt through Info for 03/31 * Telephone Encounter - Josefina Diop RN - 03/25/2016 10:53 AM CDT Per last refill PCP wants to see patient Josefina Diop RN, BSN * Telephone Encounter - Josefina Diop RN - 03/25/2016 10:52 AM CDTMessage from Info: Original authorizing provider: LUIS ANTONIO Molina would like a refill of the following medications: citalopram (CELEXA) 20 MG tablet [Andrez Krause PA-C] Preferred pharmacy: [id number] [address] Comment: documented in this encounter Plan of Treatment Not on file documented as of this encounter Visit Diagnoses Diagnosis Adjustment disorder with mixed anxiety and depressed mood documented in this encounter Additional Health Concerns Assessment Noted Time PHQ-9 Depression Total Score: 21 016 9:30 AM CDT documented as of this encounter Care Teams Tip Bander Relationship Specialty Start Date End Date Andrez Krause PA-C PCP - General Physician Director Medical Affairs - Medical 10/09/15 05/29/21 Andrez Krause PA-C [address] [place] [address] PCP - Assigned PCP 09/13/15 12/14/18 Heaven Brunson PA-C [facility] [address] [place] [address] PCP - General Physician Director Medical Affairs 05/30/21 Andrez Krause PA-C [address] [place] [address] Assigned PCP 09/13/15 06/20/22 Mona Tian MD [address] [place], [place] [address] Assigned OBGYN Provider 08/03/20 Brett Torres [facility] [address] [facility] 255 [place], [place] [address] Assigned Behavioral Health Provider 07/14/21 01/02/23 Karen Galvan PA-C [address] [facility] 103 [place] [address] Assigned Sleep Provider 09/01/21 Marie Lawrence, [facility] 5775 [facility] 200 [place], [place] [address] Assigned MTM Pharmacist 04/05/22 documented as of this encounter
--- OUTSIDE RECORDS SUMMARY | 2024-05-02 15:38 | XMS_ITS | Encounter Summary ---
Author Organization [place] Address [address] [place] [address]. [place] [address] Care Team Providers Care Transformer Assembler Name Role Phone Andrez Krause PA-C Primary Care Provider Andrez Krause PA-C Unavailable + [phone] Andrez Krause PA-C Unavailable [phone] Mona Tian MD Unavailable [phone] Heaven Brunson PA-C Primary Care Provider Brett Torres MD Unavailable [phone] Karen Galvan PA-C Unavailable + [phone] Marie Lawrence [facility] Unavailable [phone] Reason for Visit * Reason Onset Date Comments Refill Request 11/02/2018 erenumab-aooe (A IMOVIG) 70 MG/ML injection Encounter Details Date Type Department Care Team (Late st Contact Info) Description 11/02/2018 MyC Refill [address], [address] [place] [address] Andrez Krause PA-C [address] [place] [address] Refill Request (erenumab-aooe (AIMOVIG) 70... Social History Tobacco Use Types Packs/Day Years Used Date Smoking Tobacco: Never Smokeless Tobacco: Never Alcohol Use Standard Drinks/Week Comments Yes 0 (1 standard drink = 0.6 oz pur e alcohol) Social, rare PHQ-2 Answer Date Recorded PHQ-2 Score 6 10/19/2018 Sex and Gender Information Value Date Recorded Sex Assigned at Female 11/04/2018 8:36 AM TINSMITH HELPER Gender Identity Female 11/04/2018 8:36 AM TINSMITH HELPER Sexual Orientation Straight 11/04/2018 8: 36 AM TINSMITH HELPER documented as of this encounter Miscellaneous Notes * Telephone Encounter - Geraldine Chavarria RN - 11/02/2018 5:24 PM CST Routing refill request to provider for review/approval because: Drug not on the [facility] refill protocol Geraldine Chavarria RN, BS Clinical Nurse Triage. MITH HELPER * Telephone Encounter - Denia Reddy - [...] 01/25/2019) for Med Check. Future Office Visit: MITH HELPER documented in this encounter Plan of Treatment [...] documented as of this encounter Care Teams Transformer Assembler Relationship Specialty Start Date End Date Andrez Krause PA-C PCP - General Physician Rubber Off - Medical 10/09/15 05/29/21 Andrez Krause PA-C [address] [place] [address] PCP - Assigned PCP 09/13/15 12/14/18 Heaven Brunson PA-C [facility] [address] [place] [address] PCP - General Physician Rubber Off 05/30/21 Andrez Krause PA-C [address] [place] [address] Assigned PCP 09/13/15 06/20/22 Mona Tian MD [address] [place], [place] [address] Assigned OBGYN Provider 08/03/20 Brett Torres [facility] [address] [facility] 255 [place], [place] [address] Assigned Behavioral Health Provider 07/14/21 01/02/23 Karen Galvan PA-C [address] [facility] 103 [place], [place] [address] Assigned Sleep Provider 09/01/21 Marie Lawrence, [facility] 5775 [facility] 200 [place] [address] Assigned MTM Pharmacist 04/05/22 documented as of this encounter
--- OUTSIDE RECORDS SUMMARY | 2024-05-02 15:38 | XMS_ITS | Encounter Summary ---
Author Organization [place] Address [address] [place] [address] Care Team Providers Care Database Management System Specialist Name Role Phone Andrez Krause PA-C Primary Care Provider Andrez Krause PA-C Unavailable +[phone] Andrez Krause PA-C Unavailable +[phone] Mona Tian MD Unavailable +[phone] Heaven Brunson PA-C Primary Care Provider Brett Torres MD Unavailable +[phone] Karen Galvan PA-C Unavailable + [phone] Marie Lawrence [facility] Unavailable +[phone] Encounter Details Date Type Department Care Team (Latest Contact Info) Description 02/19/2017 Historic Results Social History Tobacco Use Types Packs/Day Years Used Date Smoking Tobacco: Never Smokeless Tobacco: Never Alcohol Use Standard Drinks/Week Comments Yes 0 (1 standard drink = 0.6 oz pur e alcohol) socially Sex and Gender Information Value Date Recorded Sex Assigned at Female 11/04/2018 8:36 AM SPECIAL EQUIPMENT TECHNICIAN Gender Identity Female 11/04/2018 8:36 AM SPECIAL EQUIPMENT TECHNICIAN Sexual Orientation Straight 11/04/2018 8: 36 AM SPECIAL EQUIPMENT TECHNICIAN documented as of this encounter Plan of Treatment Not on file documented as of this encounter Visit Diagnoses Not on filedocumented in this encounter Additional Health Concerns Assessment Noted Time PHQ-9 Depression Total Score: 11 017 7:20 AM CDT documented as of this encounter Care Teams Database Management System Specialist Relationship Specialty Start Date End Date Andrez Krause PA-C PCP - General Physician Locket Maker - Medical 10/09/15 05/29/21 Andrez Krause PA-C [address] [place] [address] PCP - Assigned PCP 09/13/15 12/14/18 Heaven Brunson PA-C [facility] [address] [place], [place] [address] PCP - General Physician Locket Maker 05/30/21 Andrez Krause PA-C [address] [facility] [place], [place] [address]8868 Assigned PCP 09/13/15 06/20/22 Mona Tian MD [address] [place], [place] 111347 Assigned OBGYN Provider 08/03/20 Brett Torres [facility] 24008 [facility] [address] [place], [place] [id number] Assigned Behavioral Health Provider 07/14/21 01/02/23 Karen Galvan PA-C [address] [facility] [address] [place], [place] 859185 Assigned Sleep Provider 09/01/21 Marie Lawrence, [facility] [facility] 5775 [facility] [address] [place], [place] [id number] Assigned MTM Pharmacist 04/05/22 documented as of this encounter
--- OUTSIDE RECORDS SUMMARY | 2024-05-02 15:38 | XMS_ITS | Encounter Summary ---
Author Organization [place] Address [address] [place] [address] Care Team Providers Care Station Chief Name Role Phone Andrez Krause PA-C Primary Care Provider Andrez Krause PA-C Unavailable [phone] Andrez Krause PA-C Unavailable +[phone] Mona Tian MD Unavailable +[phone] Heaven Brunson PA-C Primary Care Provider Brett Torres MD Unavailable +[phone] Karen Galvan PA-C Unavailable + [phone] Marie Lawrence [facility] Unavailable +[phone] Reason for Visit * Reason Onset Date Comments MyChart Communication 10/22/2016 PHQ-9, due for depression follow up Encounter Details Date Type Department Care Team (Latest Contact Info) Description 10/22/2016 MyC Medical Advice [address], [address] [place] [address] Marnie Mabry MA MyChart Communication (PHQ-9, due for depr... Social History Tobacco Use Types Packs/Day Years Used Date Smoking Tobacco: Never Smokeless Tobacco: Never Alcohol Use Standard Drinks/Week Comments Yes 0 (1 standard drink = 0.6 oz pur e alcohol) socially Sex and Gender Information Value Date Recorded Sex Assigned at Female 11/04/2018 8:36 AM AEROSPACE PHYSIOLOGICAL TECHNICIAN Gender Identity Female 11/04/2018 8:36 AM AEROSPACE PHYSIOLOGICAL TECHNICIAN Sexual Orientation Straight 11/04/2018 8: 36 AM AEROSPACE PHYSIOLOGICAL TECHNICIAN documented as of this encounter Plan of Treatment Not on file documented as of this encounter Visit Diagnoses Not on filedocumented in this encounter Additional Health Concerns Assessment Noted Time PHQ-9 Depression Total Score: 21 016 7:20 AM CDT documented as of this encounter Care Teams Station Chief Relationship Specialty Start Date End Date Andrez Krause PA-C PCP - General Physician Roller - Medical 10/09/15 05/29/21 Andrez Krause PA-C [address] [place] [address] PCP - Assigned PCP 09/13/15 12/14/18 Heaven Brunson PA-C [facility] [address] [place] [address] PCP - General Physician Roller 05/30/21 Andrez Krause PA-C [address] [place] [address] Assigned PCP 09/13/15 06/20/22 Mona Tian MD [address] [place], [place] [address] Assigned OBGYN Provider 08/03/20 Brett Torres [facility] [address] 815916 Assigned Behavioral Health Provider 07/14/21 01/02/23 Karen Galvan PA-C [address] [place] [address] [place] [address] Assigned Sleep Provider 09/01/21 Marie Lawrence, [facility] 5775 [facility] [address] [place] [address] Assigned MTM Pharmacist 04/05/22 documented as of this encounter
--- OUTSIDE RECORDS SUMMARY | 2024-05-02 15:38 | XMS_ITS | Encounter Summary ---
Author Organization [place] Address [address] [place] [address] Care Team Providers Care Irrigation Engineer Name Role Phone Andrez Krause PA-C Primary Care Provider Andrez Krause PA-C Unavailable [phone] Andrez Krause PA-C Unavailable + [phone] Mona Tian MD Unavailable +[phone] Heaven Brunson PA-C Primary Care Provider Brett Torres MD Unavailable +[phone] Karen Galvan PA-C Unavailable + [phone] Marie Lawrence [facility] Unavailable +[phone] Encounter Details Date Type Department Care Team (Late st Contact Info) Description 10/30/2017 MyC Medical Advice [address], [address] [place] [address] Geraldine Chavarria, RN Social History Tobacco Use Types Packs/Day Years Used Date Smoking Tobacco: Never Smokeless Tobacco: Never Alcohol Use Standard Drinks/Week Comments Yes 0 (1 standard drink = 0.6 oz pur e alcohol) socially Sex and Gender Information Value Date Recorded Sex Assigned at Female 11/04/2018 8:36 AM AUDIOVISUAL LEAD TECHNICIAN Gender Identity Female 11/04/2018 8:36 AM AUDIOVISUAL LEAD TECHNICIAN Sexual Orientation Straight 11/04/2018 8: 36 AM AUDIOVISUAL LEAD TECHNICIAN documented as of this encounter Plan of Treatment Not on file documented as of this encounter Visit Diagnoses Not on filedocumented in this encounter Additional Health Concerns Assessment Noted Time PHQ-9 Depression Total Score: 19 01/23/2 018 9:18 AM AUDIOVISUAL LEAD TECHNICIAN documented as of this encounter Care Teams Irrigation Engineer Relationship Specialty Start Date End Date Andrez Krause PA-C PCP - General Physician Blast Furnace Blower - Medical 10/09/15 05/29/21 Andrez Krause PA-C [address] [place] [address] PCP - Assigned PCP 09/13/15 12/14/18 Heaven Brunson PA-C [facility] [address] [place] [address] PCP - General Physician Blast Furnace Blower 05/30/21 Andrez Krause PA-C [address] [place] [address] Assigned PCP 09/13/15 06/20/22 Mona Tian MD [address] [place] [address] Assigned OBGYN Provider 08/03/20 Brett Torres [facility] 20[address] [facility] [address] [place] [address] Assigned Behavioral Health Provider 07/14/21 01/02/23 Karen Galvan PA-C [address] [address] Assigned Sleep Provider 09/01/21 Marie Lawrence, [facility] [address] [address] Assigned MTM Pharmacist 04/05/22 documented as of this encounter
--- OUTSIDE RECORDS SUMMARY | 2024-05-02 15:38 | XMS_ITS | Encounter Summary ---
Author Organization [place] Address [address] [place] [address] Care Team Providers Care Supervisor Fabrication Department Name Role Phone Andrez Krause PA-C Primary Care Provider Andrez Krause PA-C Unavailable + [phone] Andrez Krause PA-C Unavailable + [phone] Mona Tian MD Unavailable +[phone] Heaven Brunson PA-C Primary Care Provider Brett Torres MD Unavailable +[phone] Karen Galvan PA-C Unavailable + [phone] Marie Lawrence [facility] Unavailable +[phone] Reason for Visit * Reason Onset Date Comments Medication Request 12/07/2018 Atomoxetine 6 0mg Encounter Details Date Type Department Care Team (Late st Contact Info) Description 12/07/2018 MyC Medical Advice [address], [address] [place] [address] Andrez Krause PA-C [address] [place] [address] Medication Request (Atomoxetine 60mg) Social History Tobacco Use Types Packs/Day Years Used Date Smoking Tobacco: Never Smokeless Tobacco: Never Alcohol Use Standard Drinks/Week Comments Yes 0 (1 standard drink = 0.6 oz pur e alcohol) Social, rare PHQ-2 Answer Date Recorded PHQ-2 Score 6 10/19/2018 Sex and Gender Information Value Date Recorded Sex Assigned at Female 11/04/2018 8:36 AM LOCKSTITCH FRONT EDGE TAPE SEWER Gender Identity Female 11/04/2018 8:36 AM LOCKSTITCH FRONT EDGE TAPE SEWER Sexual Orientation Straight 11/04/2018 8: 36 AM LOCKSTITCH FRONT EDGE TAPE SEWER documented as of this encounter Miscellaneous Notes * Telephone Encounter - Andrez Krause PA-C - 12/09/2018 8:35 AM LOCKSTITCH FRONT EDGE TAPE SEWER Of course just getting to this now. Likely would not have had time to do a PA anyway? I can send the refill and see what happens. Andrez STITCH FRONT EDGE TAPE SEWER * Telephone Encounter - Nalini Conte RN - 12/07/2018 3:32 PM CST Images from the original note were not included. 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 documented in this encounter Additional Health Concerns Assessment Noted Time PHQ-9 Depression Total Score: 019 5:05 PM LOCKSTITCH FRONT EDGE TAPE SEWER documented as of this encounter Care Teams Supervisor Fabrication Department Relationship Specialty Start Date End Date Andrez Krause PA-C PCP - General Physician Patient Transportation Driver - Medical 10/09/15 05/29/21 Andrez Krause PA-C [address] [place] [address] PCP - Assigned PCP 09/13/15 12/14/18 Heaven Brunson PA-C [facility] [address] [place] [address] PCP - General Physician Patient Transportation Driver 05/30/21 Andrez Krause PA-C [address] [place] [address] Assigned PCP 09/13/15 06/20/22 Mona Tian MD [address] [place] [address] Assigned OBGYN Provider 08/03/20 Brett Torres [facility] [address] [facility] [address] [place], [place] 201186 Assigned Behavioral Health Provider 07/14/21 01/02/23 Karen Galvan PA-C [address] [facility] [address] [place], [place] [address] Assigned Sleep Provider 09/01/21 Marie Lawrence, [facility] 5775 [facility] 200 [place], [place] [id number] Assigned MTM Pharmacist 04/05/22 documented as of this encounter
--- OUTSIDE RECORDS SUMMARY | 2024-05-02 15:38 | XMS_ITS | Encounter Summary ---
Author Organization [place] Address [address] [place] [address] Care Team Providers Care Management Department Chair Name Role Phone Andrez Krause PA-C Primary Care Provider Andrez Krause PA-C Unavailable [phone] Andrez Krause PA-C Unavailable +[phone] Mona Tian MD Unavailable [phone] Heaven rBunson PA-C Primary Care Provider Brett Torres MD Unavailable +[phone] Karen Galvan PA-C Unavailable + [phone] Marie Lawrence [facility] Unavailable +[phone] Encounter Details Date Type Department Care Team (Late st Contact Info) Description 12/11/2018 MyC Medical Advice [facility] [address] [place] [address] Josefina Diop, SQL SERVER DBA DEVELOPER RV MECHANIC [address] [place] [address] [address] [place] [address] Social History Tobacco Use Types Packs/Day Years Used Date Smoking Tobacco: Never Smokeless Tobacco: Never Alcohol Use Standard Drinks/Week Comments Yes 0 (1 standard drink = 0.6 oz pur e alcohol) Social, rare PHQ-2 Answer Date Recorded PHQ-2 Score 6 10/19/2018 Sex and Gender Information Value Date Recorded Sex Assigned at Female 11/04/2018 8:36 AM YOUTH MANAGER Gender Identity Female 11/04/2018 8:36 AM YOUTH MANAGER Sexual Orientation Straight 11/04/2018 8: 36 AM YOUTH MANAGER documented as of this encounter Plan of Treatment Not on file documented as of this encounter Visit Diagnoses Not on filedocumented in this encounter Additional Health Concerns Assessment Noted Time PHQ-9 Depression Total Score: 21 019 5:05 PM YOUTH MANAGER documented as of this encounter Care Teams Management Department Chair Relationship Specialty Start Date End Date Andrez Krause PA-C PCP - General Physician County Home Demonstration Agent - Medical 10/09/15 05/29/21 Andrez Krause PA-C [address] [place] [address] PCP - Assigned PCP 09/13/15 12/14/18 Heaven Brunson PA-C [facility] [address] [place] [address] PCP - General Physician County Home Demonstration Agent 05/30/21 Andrez Krause PA-C [address] [place] [address] Assigned PCP 09/13/15 06/20/22 Mona Tian MD [address] [place] [address] Assigned OBGYN Provider 08/03/20 Brett Torres [facility] [address] [address] Assigned Behavioral Health Provider 07/14/21 01/02/23 Karen Galvan PA-C [address] [place] [address] Assigned Sleep Provider 09/01/21 Marie Lawrence, [facility] [facility] 5775 [facility] 200 [place] [address] Assigned MTM Pharmacist 04/05/22 documented as of this encounter
--- OUTSIDE RECORDS SUMMARY | 2024-05-02 15:38 | XMS_ITS | Encounter Summary ---
Author Organization [place] Address [address] [place] [address] Care Team Providers Care Bsa/Aml Compliance Officer Name Role Phone Andrez Krause PA-C Primary Care Provider Andrez Krause PA-C Unavailable [phone] Andrez Krause PA-C Unavailable [phone] Mona Tian MD Unavailable [phone] Heaven Brunson PA-C Primary Care Provider Brett Torres MD Unavailable +[phone] Karen Galvan PA-C Unavailable + [phone] Marie Lawrence [facility] Unavailable +[phone] Encounter Details Date Type Department Care Team (Late st Contact Info) Description 10/28/2017 MyC Medical Advice [address], [address] [place] [address] Marnie Mabry MA Social History Tobacco Use Types Packs/Day Years Used Date Smoking Tobacco: Never Smokeless Tobacco: Never Alcohol Use Standard Drinks/Week Comments Yes 0 (1 standard drink = 0.6 oz pur e alcohol) socially Sex and Gender Information Value Date Recorded Sex Assigned at Female 11/04/2018 8:36 AM TECHNICAL ASSISTANT Gender Identity Female 11/04/2018 8:36 AM TECHNICAL ASSISTANT Sexual Orientation Straight 11/04/2018 8: 36 AM TECHNICAL ASSISTANT documented as of this encounter Plan of Treatment Not on file documented as of this encounter Visit Diagnoses Not on filedocumented in this encounter Additional Health Concerns Assessment Noted Time PHQ-9 Depression Total Score: 20 018 1:03 PM TECHNICAL ASSISTANT documented as of this encounter Care Teams Bsa/Aml Compliance Officer Relationship Specialty Start Date End Date Andrez Krause PA-C PCP - General Physician Furnace Cleaner - Medical 10/09/15 05/29/21 Andrez Krause PA-C [address] [place] [address] PCP - Assigned PCP 09/13/15 12/14/18 Heaven Brunson PA-C [facility] [address] [place] [address] PCP - General Physician Furnace Cleaner 05/30/21 Andrez Krause PA-C [address] [place] [address] Assigned PCP 09/13/15 06/20/22 Mona Tian MD [address] [place] [address] Assigned OBGYN Provider 08/03/20 Brett Torres [facility] [address] [facility] 255 [place] [address] Assigned Behavioral Health Provider 07/14/21 01/02/23 Karen Galvan PA-C [address] [address] Assigned Sleep Provider 09/01/21 Marie Lawrence, [facility] [address] [address] Assigned MTM Pharmacist 04/05/22 documented as of this encounter
--- OUTSIDE RECORDS SUMMARY | 2024-05-02 15:38 | XMS_ITS | Encounter Summary ---
Author Organization [place] Address [address] [place] [address] Care Team Providers Care Boxing Machine Operator Name Role Phone Andrez Krause PA-C Primary Care Provider Andrez Krause PA-C Unavailable + [phone] Andrez Krause PA-C Unavailable + [phone] Mona Tian MD Unavailable [phone] Heaven Brunson PA-C Primary Care Provider Brett Torres MD Unavailable +[phone] Karen Galvan PA-C Unavailable + [phone] Marie Lawrence [facility] Unavailable +[phone] Reason for Visit * Reason Onset Date Comments Refill Request 11/19/2017 Imitrex tablets Encounter Details Date Type Department Care Team (Late st Contact Info) Description 11/19/2017 MyC Medical Advice [address], [address] [place] [address] Andrez Krause PA-C [address] [place] [address] Refill Request (Imitrex tablets) Social History Tobacco Use Types Packs/Day Years Used Date Smoking Tobacco: Never Smokeless Tobacco: Never Alcohol Use Standard Drinks/Week Comments Yes 0 (1 standard drink = 0.6 oz pur e alcohol) socially Sex and Gender Information Value Date Recorded Sex Assigned at Female 11/04/2018 8:36 AM VICE PRINCIPAL Gender Identity Female 11/04/2018 8:36 AM VICE PRINCIPAL Sexual Orientation Straight 11/04/2018 8: 36 AM VICE PRINCIPAL documented as of this encounter Miscellaneous Notes * Telephone Encounter - Nalini Conte RN - 11/19/2017 3:48 PM CST Looks like SUMAtriptan (IMITREX) 100 MG tablet #9 was sent to pharmacy. Nalini Conte RN PRINCIPAL documented in this encounter Plan of Treatment Not on file documented as of this encounter Visit Diagnoses Not on filedocumented in this encounter Additional Health Concerns Assessment Noted Time PHQ-9 Depression Total Score: 19 018 9:18 AM VICE PRINCIPAL documented as of this encounter Care Teams Boxing Machine Operator Relationship Specialty Start Date End Date Andrez Krause PA-C PCP - General Physician Wire Loop Machine Operator - Medical 10/09/15 05/29/21 Andrez Krause PA-C [address] [place] [address] PCP - Assigned PCP 09/13/15 12/14/18 Heaven Brunson PA-C [facility] [address] [place] [address] PCP - General Physician Wire Loop Machine Operator 05/30/21 Andrez Krause PA-C [address] [place] [address] Assigned PCP 09/13/15 06/20/22 Mona Tian MD [address] [place] [address] Assigned OBGYN Provider 08/03/20 Brett Torres [facility] [address] [facility] 255 [place], [place] [address] Assigned Behavioral Health Provider 07/14/21 01/02/23 Karen Galvan PA-C [address] [facility] 103 [place], [place] [address] Assigned Sleep Provider 09/01/21 Marie Lawrence [facility] [address] [facility] 200 [place], [place] [address] Assigned MTM Pharmacist 04/05/22 documented as of this encounter
--- OUTSIDE RECORDS SUMMARY | 2024-05-02 15:38 | XMS_ITS | Encounter Summary ---
Author Organization [place] Address [address] [place] [address] Care Team Providers Care Allergist/Md Name Role Phone Andrez Krause PA-C Primary Care Provider Andrez Krause PA-C Unavailable [phone] Andrez Krause PA-C Unavailable [phone] Mona Tian MD Unavailable [phone] Heaven Brunson PA-C Primary Care Provider Brett Torres MD Unavailable +[phone] Karen Galvan PA-C Unavailable + [phone] Marie Lawrence [facility] Unavailable +[phone] Encounter Details Date Type Department Care Team (Late st Contact Info) Description 04/03/2018 MyC Medical Advice [address] [address] Geraldine Chavarria, RN Social History Tobacco Use Types Packs/Day Years Used Date Smoking Tobacco: Never Smokeless Tobacco: Never Alcohol Use Standard Drinks/Week Comments Yes 0 (1 standard drink = 0.6 oz pur e alcohol) socially Sex and Gender Information Value Date Recorded Sex Assigned at Female 11/04/2018 8:36 AM V BELT CURER Gender Identity Female 11/04/2018 8:36 AM V BELT CURER Sexual Orientation Straight 11/04/2018 8: 36 AM V BELT CURER documented as of this encounter Plan of Treatment Not on file documented as of this encounter Visit Diagnoses Not on filedocumented in this encounter Additional Health Concerns Assessment Noted Time PHQ-9 Depression Total Score: 23 04/10/ 018 7:00 AM CDT documented as of this encounter Care Teams Allergist/Md Relationship Specialty Start Date End Date Andrez Krause PA-C PCP - General Physician Mold Maker Plaster - Medical 10/09/15 05/29/21 Andrez Krause PA-C [address] [place] [address] PCP - Assigned PCP 09/13/15 12/14/18 Heaven Brunson PA-C [facility] [address] [place] [address] PCP - General Physician Mold Maker Plaster 05/30/21 Andrez Krause PA-C [address] [place] [address] Assigned PCP 09/13/15 06/20/22 Mona Tian MD [address] [place] [address] Assigned OBGYN Provider 08/03/20 Brett Torres [facility] [address] [address] Assigned Behavioral Health Provider 07/14/21 01/02/23 Karen Galvan PA-C [address] [address] Assigned Sleep Provider 09/01/21 Marie Lawrence, [facility] 5775 [facility] 200 [place] [address] Assigned MTM Pharmacist 04/05/22 documented as of this encounter
--- OUTSIDE RECORDS SUMMARY | 2024-05-02 15:38 | XMS_ITS | Encounter Summary ---
Author Organization [facility] Address [address] [place] [address] Care Team Providers Care Architectural Modeler Name Role Phone Andrez Krause PA-C Primary Care Provider Andrez Krause PA-C Unavailable + [phone] Andrez Krause PA-C Unavailable + [phone] Mona Tian MD Unavailable +[phone] Heaven Brunson PA-C Primary Care Provider Brett Torres MD Unavailable +[phone] Karen Galvan PA-C Unavailable + [phone] Marie Lawrence [facility] Unavailable +[phone] Reason for Visit * Reason Onset Date Comments Headache 11/30/2018 update Encounter Details Date Type Department Care Team (Late st Contact Info) Description 11/30/2018 MyC Medical Advice [address], [address] [place] [address] Andrez Krause PA-C [address] [place] [address] Headache (update) Social History Tobacco Use Types Packs/Day Years Used Date Smoking Tobacco: Never Smokeless Tobacco: Never Alcohol Use Standard Drinks/Week Comments Yes 0 (1 standard drink = 0.6 oz pur e alcohol) Social, rare PHQ-2 Answer Date Recorded PHQ-2 Score 6 10/19/2018 Sex and Gender Information Value Date Recorded Sex Assigned at Female 11/04/2018 8:36 AM AUTOMOTIVE SALES ASSOCIATE Gender Identity Female 11/04/2018 8:36 AM AUTOMOTIVE SALES ASSOCIATE Sexual Orientation Straight 11/04/2018 8: 36 AM AUTOMOTIVE SALES ASSOCIATE documented as of this encounter Plan of Treatment Not on file documented as of this encounter Visit Diagnoses Diagnosis Migraine without aura and without status migrainosus, not intractable- Primary Migraine without aura, without mention of intractable migraine without mention of status migrainosus documented in this encounter Additional Health Concerns Assessment Noted Time PHQ-9 Depression Total Score: 019 5:05 PM AUTOMOTIVE SALES ASSOCIATE documented as of this encounter Care Teams Architectural Modeler Relationship Specialty Start Date End Date Andrez Krause PA-C PCP - General Physician Distribution Accounting Clerk - Medical 10/09/15 05/29/21 Andrez Krause PA-C [address] [place] [address] PCP - Assigned PCP 09/13/15 12/14/18 Heaven Brunson PA-C [facility] [address] [place] [address] PCP - General Physician Distribution Accounting Clerk 05/30/21 Andrez Krause PA-C [address] [place] [address] Assigned PCP 09/13/15 06/20/22 Mona Tian MD [address] [place], [place] [address] Assigned OBGYN Provider 08/03/20 Brett Torres [facility] [address] [place] [address] [id number] Assigned Behavioral Health Provider 07/14/21 01/02/23 Karen Galvan PA-C [address] [facility] [address] [place] [address] Assigned Sleep Provider 09/01/21 Marie Lawrence, [facility] [place] [facility] 5775 [facility] 200 [place] [address] Assigned MTM Pharmacist 04/05/22 documented as of this encounter
--- OUTSIDE RECORDS SUMMARY | 2024-05-02 15:38 | XMS_ITS | Encounter Summary ---
Author Organization [facility] Address [address] [place] [address]. [place] [address] Care Team Providers Care Hospital Recruiter Name Role Phone Andrez Krause PA-C Primary Care Provider Andrez Krause PA-C Unavailable [phone] Andrez Krause PA-C Unavailable +[phone] Mona Tian MD Unavailable +[phone] Heaven Brunson PA-C Primary Care Provider Brett Torres MD Unavailable [phone] Karen Galvan PA-C Unavailable + [phone] Marie Lawrence [facility] Unavailable [phone] Reason for Visit * Reason Onset Date Comments Refill Request 04/29/2018 Encounter Details Date Type Department Care Team (Late st Contact Info) Description 04/29/2018 MyC Refill [facility] [address] [place] [id number] Rhonda Middleton PA-C [address] [place] [address] Refill Request Social History Tobacco Use Types Packs/Day Years Used Date Smoking Tobacco: Never Smokeless Tobacco: Never Alcohol Use Standard Drinks/Week Comments Yes 0 (1 standard drink = 0.6 oz pur e alcohol) Social, rare Sex and Gender Information Value Date Recorded Sex Assigned at Female 11/04/2018 8:36 AM MEDICAL INTERPRETER Gender Identity Female 11/04/2018 8:36 AM MEDICAL INTERPRETER Sexual Orientation Straight 11/04/2018 8: 36 AM MEDICAL INTERPRETER documented as of this encounter Miscellaneous Notes * Telephone Encounter - Sweta Danielle RN - 04/29/2018 8:52 AM CDT Called the Pt to discuss refill. LM, waiting callback. Pt is a FM Pt with [facility]. Medication was issuedby [facility] provider. Pt needs to follow up with PCP to discuss refills. Please help her schedule when she calls back. Thanks. Sweta Danielle RN -- [facility] * Telephone Encounter - Sweta Danielle RN - 04/29/2018 8:49 AM [facility] Original authorizing provider: LUIS ANTONIO Mendoza would like a refill of the following medications: erenumab-aooe (AIMOVIG) 70 MG/ML injection [Rhonda Middleton PA-C] Preferred pharmacy: [id number] [place], [place] - [address] [address] Comment: documented in this encounter [...] documented as of this encounter Care Teams Hospital Recruiter Relationship Specialty Start Date End Date Andrez Krause PA-C PCP - General Physician Internet Marketing Specialist - Medical 10/09/15 05/29/21 Andrez Krause PA-C [address] [place] [address] PCP - Assigned PCP 09/13/15 12/14/18 Heaven Brunson PA-C [facility] [address] [place] [address] PCP - General Physician Internet Marketing Specialist 05/30/21 Andrez Krause PA-C [address] [facility] [place] [address] Assigned PCP 09/13/15 06/20/22 Mona Tian MD [address] [place] [address] Assigned OBGYN Provider 08/03/20 Brett Torres [facility] [address] [facility] [address] [place], [place] [address] Assigned Behavioral Health Provider 07/14/21 01/02/23 Karen Galvan PA-C [address] [facility] 103 [place] [address] Assigned Sleep Provider 09/01/21 Marie Lawrence, [facility] [address] [facility] 200 [place] [address] Assigned MTM Pharmacist 04/05/22 documented as of this encounter
--- OUTSIDE RECORDS SUMMARY | 2024-05-02 15:38 | XMS_ITS | Encounter Summary ---
Author Organization [facility] Address [address] [place] [address]. [place] [address] Care Team Providers Care Electrician Second Name Role Phone Andrez Krause PA-C Primary Care Provider Andrez Krause PA-C Unavailable + [phone] Andrez Krause PA-C Unavailable + [phone] Mona Tian MD Unavailable [phone] Heaven Brunson PA-C Primary Care Provider Brett Torres MD Unavailable [phone] Karen Galvan PA-C Unavailable + [phone] Marie Lawrence [facility] Unavailable +[phone] Reason for Visit * Reason Onset Date Comments Refill Request 07/01/2017 Methylphenidate Encounter Details Date Type Department Care Team (Late st Contact Info) Description 07/01/2017 MyC Medical Advice [address], [address] [place] [address] Andrez Krause PA-C [address] [place] [address] Refill Request (Methylphenidate) Social History Tobacco Use Types Packs/Day Years Used Date Smoking Tobacco: Never Smokeless Tobacco: Never Alcohol Use Standard Drinks/Week Comments Yes 0 (1 standard drink = 0.6 oz pur e alcohol) socially Sex and Gender Information Value Date Recorded Sex Assigned at Female 11/04/2018 8:36 AM IT INSTRUCTOR Gender Identity Female 11/04/2018 8:36 AM IT INSTRUCTOR Sexual Orientation Straight 11/04/2018 8: 36 AM IT INSTRUCTOR documented as of this encounter Miscellaneous [...] Cotyt Amanuel with Andrez Krause PA-C [facility] [address] [place] [address] Routing refill request to provider for review/approval because: Drug not on the [facility], [facility] or [facility] refill protocol or controlled substance. MOTORS ASSEMBLER checked 07/01/2017: 05/19/2017 GABAPENTIN 300 MG CAPSULE [...] documented as of this encounter Care Teams Electrician Second Relationship Specialty Start Date End Date Andrez Krause PA-C PCP - General Physician Director Strategic Account Management - Medical 10/09/15 05/29/21 Andrez Krause PA-C [address] [place] [address] PCP - Assigned PCP 09/13/15 12/14/18 Heaven Brunson PA-C [facility] [address] [place], [place] [address] PCP - General Physician Director Strategic Account Management 05/30/21 Andrez Krause PA-C [address] [place] [address] Assigned PCP 09/13/15 06/20/22 Mona Tian MD [address] [place] [address] Assigned OBGYN Provider 08/03/20 Brett Torres [facility] [address] [facility] 255 [place] [address] Assigned Behavioral Health Provider 07/14/21 01/02/23 Karen Galvan PA-C [address] [facility] 103 [place] [address] Assigned Sleep Provider 09/01/21 Marie Lawrence, [facility] 57[address] [facility] 200 [place], [place] [address] Assigned MTM Pharmacist 04/05/22 documented as of this encounter
--- OUTSIDE RECORDS SUMMARY | 2024-05-02 15:38 | XMS_ITS | Encounter Summary ---
Author Organization [facility] Address [address] [place] [address]. [place] [address] Care Team Providers Care Leasing Professional Name Role Phone Andrez Krause PA-C Primary Care Provider Andrez Krause PA-C Unavailable [phone] Mona Tian MD Unavailable [phone] Heaven Brunson PA-C Primary Care Provider Brett Torres MD Unavailable [phone] Karen Galvan PA-C Unavailable + [phone] Marie Lawrence [facility] Unavailable [phone] Encounter Details Date Type Department Care Team (Late st Contact Info) Description 01/23/2019 MyC Medical Advice [address], [address] [place] [address] Andrez Krause PA-C [address] [place] [address] Social History Tobacco Use Types Packs/Day Years Used Date Smoking Tobacco: Never Smokeless Tobacco: Never Alcohol Use Standard Drinks/Week Comments Yes 0 (1 standard drink = 0.6 oz pur e alcohol) Social, rare PHQ-2 Answer Date Recorded PHQ-2 Score 6 10/19/2018 Sex and Gender Information Value Date Recorded Sex Assigned at Female 11/04/2018 8:36 AM FINISHING INSPECTOR Gender Identity Female 11/04/2018 8:36 AM FINISHING INSPECTOR Sexual Orientation Straight 11/04/2018 8: 36 AM FINISHING INSPECTOR documented as of this encounter Plan of Treatment Not on file documented as of this encounter Visit Diagnoses Not on filedocumented in this encounter Additional Health Concerns Assessment Noted Time PHQ-9 Depression Total Score: 019 5:05 PM FINISHING INSPECTOR documented as of this encounter Care Teams Leasing Professional Relationship Specialty Start Date End Date Andrez Krause PA-C PCP - General Physician Weekend Receptionist - Medical 10/09/15 05/29/21 Heaven Brunson PA-C [facility] [address] [place] [address] PCP - General Physician Weekend Receptionist 05/30/21 Andrez Krause PA-C [address] [place] [address] Assigned PCP 09/13/15 06/20/22 Mona Tian MD [address] [place], [place] [address] Assigned OBGYN Provider 08/03/20 Brett Torres [facility] [address] [facility] 255 [place], [place] [address] Assigned Behavioral Health Provider 07/14/21 01/02/23 Karen Galvan PA-C 6363 [facility] 103 [place], [place] [address] Assigned Sleep Provider 09/01/21 Marie Lawrence, [facility] 5775 [facility] 200 [place] [address] Assigned MTM Pharmacist 04/05/22 documented as of this encounter
--- OUTSIDE RECORDS SUMMARY | 2024-05-02 15:38 | XMS_ITS | Encounter Summary ---
Author Organization [facility] Address [address] [place] [address] Care Team Providers Care Thermoplastic Technician Name Role Phone Andrez Krause PA-C Primary Care Provider Andrez Krause PA-C Unavailable + [phone] Andrez Krause PA-C Unavailable + [phone] Mona Tian MD Unavailable [phone] Heaven Brunson PA-C Primary Care Provider Brett Torres MD Unavailable [phone] Karen Galvan PA-C Unavailable + [phone] Marie Lawrence [facility] Unavailable [phone] Reason for Visit * Reason Onset Date Comments Forms 04/08/2017 FMLA Encounter Details Date Type Department Care Team (Late st Contact Info) Description 04/08/2017 MyC Medical Advice [address], [address] [place] [address] Andrez Krause PA-C [address] [place] [address] Forms (FMLA) Social History Tobacco Use Types Packs/Day Years Used Date Smoking Tobacco: Never Smokeless Tobacco: Never Alcohol Use Standard Drinks/Week Comments Yes 0 (1 standard drink = 0.6 oz pur e alcohol) socially Sex and Gender Information Value Date Recorded Sex Assigned at Female 11/04/2018 8:36 AM SOURCING ASSISTANT Gender Identity Female 11/04/2018 8:36 AM SOURCING ASSISTANT Sexual Orientation Straight 11/04/2018 8: 36 AM SOURCING ASSISTANT documented as of this encounter Plan of Treatment Not on file documented as of this encounter Visit Diagnoses Not on filedocumented in this encounter Additional Health Concerns Assessment Noted Time PHQ-9 Depression Total Score: 11 017 7:20 AM CDT documented as of this encounter Care Teams Thermoplastic Technician Relationship Specialty Start Date End Date Andrez Krause PA-C PCP - General Physician Supervisor Burling And Joining - Medical 10/09/15 05/29/21 Andrez Krause PA-C [address] [place] [address] PCP - Assigned PCP 09/13/15 12/14/18 Heaven Brunson PA-C [facility] [address] [place] [address] PCP - General Physician Supervisor Burling And Joining 05/30/21 Andrez Krause PA-C [address] [place] [address] Assigned PCP 09/13/15 06/20/22 Mona Tian MD [address] [place] [address] Assigned OBGYN Provider 08/03/20 Brett Torres [facility] [address] [place] [address] Assigned Behavioral Health Provider 07/14/21 01/02/23 Karen Galvan PA-C [address] [facility] [address] [place] [address] Assigned Sleep Provider 09/01/21 Marie Lawrence, [facility] 5775 [facility] [address] [place] [address] Assigned MTM Pharmacist 04/05/22 documented as of this encounter
--- OUTSIDE RECORDS SUMMARY | 2024-05-02 15:38 | XMS_ITS | Encounter Summary ---
Author Organization [facility] Address [address] [place] [address] Care Team Providers Care Art Gilder Name Role Phone Andrez Krause PA-C Primary Care Provider Andrez Krause PA-C Unavailable + [phone] Andrez Krause PA-C Unavailable + [phone] Mona Tian MD Unavailable [phone] Heaven Brunson PA-C Primary Care Provider Brett Torres MD Unavailable [phone] Karen Galvan PA-C Unavailable + [phone] Marie Lawrence [facility] Unavailable [phone] Reason for Visit * Reason Onset Date Comments Forms 12/13/2018 Unemployment Encounter Details Date Type Department Care Team (Late st Contact Info) Description 12/13/2018 MyC Medical Advice [address], [address] [place] [address] Andrez Krause PA-C [address] [place] [address] Forms (Unemployment) Social History Tobacco Use Types Packs/Day Years Used Date Smoking Tobacco: Never Smokeless Tobacco: Never Alcohol Use Standard Drinks/Week Comments Yes 0 (1 standard drink = 0.6 oz pur e alcohol) Social, rare PHQ-2 Answer Date Recorded PHQ-2 Score 6 10/19/2018 Sex and Gender Information Value Date Recorded Sex Assigned at Female 11/04/2018 8:36 AM CERTIFIED HOME HEALTH AIDE Gender Identity Female 11/04/2018 8:36 AM CERTIFIED HOME HEALTH AIDE Sexual Orientation Straight 11/04/2018 8: 36 AM CERTIFIED HOME HEALTH AIDE documented as of this encounter Miscellaneous Notes * Telephone Encounter - Andrez Krause PA-C - 12/16/2018 12:56 PM CERTIFIED HOME HEALTH AIDE OK, first dose is to do 240mg followed by 120mg monthly after that. I'll do the first Rx now. Thanks! Andrez IFIED HOME HEALTH AIDE * Telephone Encounter - Nalini Conte RN - 12/16/2018 12:06 PM CST Please approve rx for EMGALITY as patient is willing to give it a try. She will pecan picker the card to you have provider for the 12 month free. Nalini Conte RN IFIED HOME HEALTH AIDE * Telephone Encounter - Nalini Conte RN - 12/16/2018 11:28 AM CST Form faxed to [phone]. Copy placed in abstracting. Original in my in-basket waiting for patient to let us know if she would like to pecan picker copy of have us mail it to her. I also have the Emgality Savings Card for patient in my in-basket if patient is interested in it. Waiting for patient to let us know about this as well. Nalini Conte RN IFIED HOME HEALTH AIDE * Telephone Encounter - Andrez Krause PA-C - 12/15/2018 2:39 PM CERTIFIED HOME HEALTH AIDE OK, Ill get it signed. Andrez IFIED HOME HEALTH AIDE * Telephone Encounter - Nalini Conte RN - 12/15/2018 1:20 PM CST This message was not routed to you as there was already a phone message created for the form. This is NOT a permanent disability from what I can see. Nalini Conte, RN IFIED HOME HEALTH AIDE * Telephone Encounter - Andrez Krause PA-C - 12/15/2018 12:52 PM CERTIFIED HOME HEALTH AIDE Hey! I see this in my actual basket now, but was it routed to me? I'm not signing for any permamentdisability am I? Just for dates gone at this point? Just wondering when looking at the form.... I can sign it otherwise and she can pick it up LYSSA. Andrez IFIED HOME HEALTH AIDE documented in this encounter Plan of Treatment Not on file documented as of this encounter Visit Diagnoses Diagnosis Migraine without aura and without status migrainosus, not intractable- Primary Migraine without aura, without mention of intractable migraine without mention of status migrainosus documented in this encounter Additional Health Concerns Assessment Noted Time PHQ-9 Depression Total Score: 019 5:05 PM CERTIFIED HOME HEALTH AIDE documented as of this encounter Care Teams Art Gilder Relationship Specialty Start Date End Date Andrez Krause PA-C PCP - General Physician Reel Repairer - Medical 10/09/15 05/29/21 Andrez Krause PA-C [address] [place] [address] PCP - Assigned PCP 09/13/15 12/14/18 Heaven Brunson PA-C [facility] [address] [place] [address] PCP - General Physician Reel Repairer 05/30/21 Andrez Krause PA-C [address] [place] [address] Assigned PCP 09/13/15 06/20/22 Mona Tian MD [address] [place] [address] Assigned OBGYN Provider 08/03/20 Brett Torres [facility] [address] [facility] [address] [place], [place] [address] Assigned Behavioral Health Provider 07/14/21 01/02/23 Karen Galvan PA-C [address] [facility] 103 [place] [address] Assigned Sleep Provider 09/01/21 Marie Lawrence, [facility] 5775 [facility] 200 [place] [address] Assigned MTM Pharmacist 04/05/22 documented as of this encounter
--- OUTSIDE RECORDS SUMMARY | 2024-05-02 15:38 | XMS_ITS | Encounter Summary ---
Author Organization [facility] Address [address] [place] [address] Care Team Providers Care Saw Grinder Name Role Phone Andrez Krause PA-C Primary Care Provider Andrez Krause PA-C Unavailable + [phone] Andrez Krause PA-C Unavailable + [phone] Mona Tian MD Unavailable [phone] Heaven Brunson PA-C Primary Care Provider Brett Torres MD Unavailable [phone] Karen Galvan PA-C Unavailable + [phone] Marie Lawrence [facility] Unavailable [phone] Encounter Details Date Type Department Care Team (Late st Contact Info) Description 04/17/2017 MyC Medical Advice [address], [address] [place] [address] Nalini Conte RN Social History Tobacco Use Types Packs/Day Years Used Date Smoking Tobacco: Never Smokeless Tobacco: Never Alcohol Use Standard Drinks/Week Comments Yes 0 (1 standard drink = 0.6 oz pur e alcohol) socially Sex and Gender Information Value Date Recorded Sex Assigned at Female 11/04/2018 8:36 AM NUTRITION COUNSELOR Gender Identity Female 11/04/2018 8:36 AM NUTRITION COUNSELOR Sexual Orientation Straight 11/04/2018 8: 36 AM NUTRITION COUNSELOR documented as of this encounter Plan of Treatment Not on file documented as of this encounter Visit Diagnoses Not on filedocumented in this encounter Additional Health Concerns Assessment Noted Time PHQ-9 Depression Total Score: 11 017 7:20 AM CDT documented as of this encounter Care Teams Saw Grinder Relationship Specialty Start Date End Date Andrez Krause PA-C PCP - General Physician Wellness Specialist - Medical 10/09/15 05/29/21 Andrez Krause PA-C [address] [place] [address] PCP - Assigned PCP 09/13/15 12/14/18 Heaven Brunson PA-C [facility] [address] [place] [address] PCP - General Physician Wellness Specialist 05/30/21 Andrez Krause PA-C [address] [place] [address] Assigned PCP 09/13/15 06/20/22 Mona Tian MD [address] [place] [address] Assigned OBGYN Provider 08/03/20 Brett Torres [facility] [address] [facility] [address] [place] [address] Assigned Behavioral Health Provider 07/14/21 01/02/23 Karen Galvan PA-C [address] [address] Assigned Sleep Provider 09/01/21 Marie Lawrence, [facility] [address] [address] Assigned MTM Pharmacist 04/05/22 documented as of this encounter
--- OUTSIDE RECORDS SUMMARY | 2024-05-02 15:38 | XMS_ITS | Encounter Summary ---
Author Organization [place] Address [address] [place] [address] Care Team Providers Care Plastics And Composites Inspector Name Role Phone Andrez Krause PA-C Primary Care Provider Andrez Krause PA-C Unavailable + [phone] Andrez Krause PA-C Unavailable + [phone] Mona Tian MD Unavailable +[phone] Heaven Brunson PA-C Primary Care Provider Brett Torres MD Unavailable +[phone] Karen Galvan PA-C Unavailable + [phone] Marie Lawrence [facility] Unavailable +[phone] Encounter Details Date Type Department Care Team (Late st Contact Info) Description 08/25/2017 MyC Medical Advice [address], [address] [place] [address] Nalini Conte RN Social History Tobacco Use Types Packs/Day Years Used Date Smoking Tobacco: Never Smokeless Tobacco: Never Alcohol Use Standard Drinks/Week Comments Yes 0 (1 standard drink = 0.6 oz pur e alcohol) socially Sex and Gender Information Value Date Recorded Sex Assigned at Female 11/04/2018 8:36 AM FORENSIC ACCOUNTANT Gender Identity Female 11/04/2018 8:36 AM FORENSIC ACCOUNTANT Sexual Orientation Straight 11/04/2018 8: 36 AM FORENSIC ACCOUNTANT documented as of this encounter Plan of Treatment Not on file documented as of this encounter Visit Diagnoses Not on filedocumented in this encounter Additional Health Concerns Assessment Noted Time PHQ-9 Depression Total Score: 25 017 7:07 AM CDT documented as of this encounter Care Teams Plastics And Composites Inspector Relationship Specialty Start Date End Date Andrez Krause PA-C PCP - General Physician Automatic Serging Machine Operator - Medical 10/09/15 05/29/21 Andrez Krause PA-C [address] [place] [address] PCP - Assigned PCP 09/13/15 12/14/18 Heaven Brunson PA-C [facility] [address] [place] [address] PCP - General Physician Automatic Serging Machine Operator 05/30/21 Andrez Krause PA-C [address] [place] [address] Assigned PCP 09/13/15 06/20/22 Mona Tian MD [address] [place] [address] Assigned OBGYN Provider 08/03/20 Brett Torres [facility] [address] [facility] 255 [place] [address] Assigned Behavioral Health Provider 07/14/21 01/02/23 Karen Galvan PA-C [address] [address] Assigned Sleep Provider 09/01/21 Marie Lawrence, [facility] [address] [address] Assigned MTM Pharmacist 04/05/22 documented as of this encounter
--- OUTSIDE RECORDS SUMMARY | 2024-05-02 15:39 | XMS_ITS | Encounter Summary ---
Author Organization [place] Address [address] [place] [address] Care Team Providers Care Model Maker Fiberglass Name Role Phone Andrez Krause PA-C Primary Care Provider Andrez Krause PA-C Unavailable + [phone] Andrez Krause PA-C Unavailable + [phone] Mona Tian MD Unavailable +[phone] Heaven Brunson PA-C Primary Care Provider Brett Torres MD Unavailable +[phone] Karen Galvan PA-C Unavailable + [phone] Marie Lawrence [facility] Unavailable +[phone] Reason for Visit * Reason Onset Date Comments Infection 03/03/2016 Tonsil Encounter Details Date Type Department Care Team (Late st Contact Info) Description 03/03/2016 MyC Medical Advice [address], [address] [place] [address] Andrez Krause PA-C [address] [place] [address] Infection (Tonsil) Social History Tobacco Use Types Packs/Day Years Used Date Smoking Tobacco: Never Alcohol Use Standard Drinks/Week Comments Yes 0 (1 standard drink = 0.6 oz pur e alcohol) socially Sex and Gender Information Value Date Recorded Sex Assigned at Female 11/04/2018 8:36 AM ENGRAVER SEALS Gender Identity Female 11/04/2018 8:36 AM ENGRAVER SEALS Sexual Orientation Straight 11/04/2018 8: 36 AM ENGRAVER SEALS documented as of this encounter Plan of Treatment Not on file documented as of this encounter Visit Diagnoses Not on filedocumented in this encounter Additional Health Concerns Assessment Noted Time PHQ-9 Depression Total Score: 21 01/08/ 016 9:30 AM CDT documented as of this encounter Care Teams Model Maker Fiberglass Relationship Specialty Start Date End Date Andrez Krause PA-C PCP - General Physician Stamping Machine Operator - Medical 10/09/15 05/29/21 Andrez Krause PA-C [address] [place] [address] PCP - Assigned PCP 09/13/15 12/14/18 Heaven Brunson PA-C [facility] [address] [place] [address] PCP - General Physician Stamping Machine Operator 05/30/21 Andrez Krause PA-C [address] [facility] [address] Assigned PCP 09/13/15 06/20/22 Mona Tian MD [address] [place] [address] Assigned OBGYN Provider 08/03/20 Brett Torres [facility] [address] [address] Assigned Behavioral Health Provider 07/14/21 01/02/23 Karen Galvan PA-C [address] [facility] [address] [place] [address] Assigned Sleep Provider 09/01/21 Marie Lawrence, [facility] 5775 [facility] 200 [place] [address] Assigned MTM Pharmacist 04/05/22 documented as of this encounter
--- OUTSIDE RECORDS SUMMARY | 2024-05-02 15:39 | XMS_ITS | Encounter Summary ---
Author Organization [place] Address [address] [place] [address] Care Team Providers Care Medical Service Technician Name Role Phone Andrez Krause PA-C Primary Care Provider Andrez Krause PA-C Unavailable + [phone] Andrez Krause PA-C Unavailable + [phone] Mona Tian MD Unavailable +[phone] Heaven Brunson PA-C Primary Care Provider Brett Torres MD Unavailable +[phone] Karen Galvan PA-C Unavailable + [phone] Marie Lawrence [facility] Unavailable +[phone] Reason for Visit * Reason Onset Date Comments Refill Request 12/11/2015 Zoloft, Imitrex Encounter Details Date Type Department Care Team (Late st Contact Info) Description 12/11/2015 MyC Refill [address], [address] [place] [address] Andrez Krause PA-C [address] [place] [address] Refill Request (Zoloft, Imitrex) Social History Tobacco Use Types Packs/Day Years Used Date Smoking Tobacco: Never Alcohol Use Standard Drinks/Week Comments Yes 0 (1 standard drink = 0.6 oz pur e alcohol) Sex and Gender Information Value Date Recorded Sex Assigned at Female 11/04/2018 8:36 AM PHOTOGRAPHER MODEL Gender Identity Female 11/04/2018 8:36 AM PHOTOGRAPHER MODEL Sexual Orientation Straight 11/04/2018 8: 36 AM PHOTOGRAPHER MODEL documented as of this encounter Miscellaneous Notes * Telephone Encounter - Nalini Conte RN - 12/11/2015 10:43 AM CST Rx's already filled 11/23/2015 at [facility]. Nalini Conte RN OGRAPHER MODEL * Telephone Encounter - Nalini Conte RN - 12/11/2015 10:43 AM CSTMessage from MyChart: Original authorizing provider: LUIS ANTONIO Molina would like a refill of the following medications: sertraline (ZOLOFT) 50 MG tablet [Andrez Krause PA-C] SUMAtriptan (IMITREX) 100 MG tablet [Andrez Krause PA-C] Preferred pharmacy: [id number] - [place], [place] - [address] Comment: OGRAPHER MODEL documented in this encounter Plan of Treatment [...] Total Score: 7 11/24/19 16 8:21 AM PHOTOGRAPHER MODEL documented as of this encounter Care Teams Medical Service Technician Relationship Specialty Start Date End Date Andrez Krause PA-C PCP - General Physician Food Service Hotel Runner - Medical 10/09/15 05/29/21 Andrez Krause PA-C [address] [place] [address] PCP - Assigned PCP 09/13/15 12/14/18 Heaven Brunson PA-C [facility] [address] [place] [address] PCP - General Physician Food Service Hotel Runner 05/30/21 Andrez Krause PA-C [address] [place] [address] Assigned PCP 09/13/15 06/20/22 Mona Tian MD [address] [place], [place] [address] Assigned OBGYN Provider 08/03/20 Brett Torres [facility] [address] [facility] 255 [place], [place] [address] Assigned Behavioral Health Provider 07/14/21 01/02/23 Karen Galvan PA-C [address] [facility] 103 [place] [address] Assigned Sleep Provider 09/01/21 Marie Lawrence, [facility] 5775 [facility] 200 [place], [place] [id number] Assigned MTM Pharmacist 04/05/22 documented as of this encounter
--- OUTSIDE RECORDS SUMMARY | 2024-05-02 15:39 | XMS_ITS | Encounter Summary ---
Author Organization [place] Address [address] [place] [address] Care Team Providers Care Content Production Specialist Name Role Phone Andrez Krause PA-C Primary Care Provider Andrez Krause PA-C Unavailable + [phone] Andrez Krause PA-C Unavailable + [phone] Mona Tian MD Unavailable +[phone] Heaven Brunson PA-C Primary Care Provider Brett Torres MD Unavailable +[phone] Karen Galvan PA-C Unavailable + [phone] Marie Lawrence [facility] Unavailable +[phone] Reason for Visit * Reason Onset Date Comments Medication Problem 02/13/2016 Lexapro Encounter Details Date Type Department Care Team (Late st Contact Info) Description 02/13/2016 MyC Medical Advice [address], [address] [place] [address] Andrez Krause PA-C [address] [place] [address] Medication Problem (Lexapro) Social History Tobacco Use Types Packs/Day Years Used Date Smoking Tobacco: Never Alcohol Use Standard Drinks/Week Comments Yes 0 (1 standard drink = 0.6 oz pur e alcohol) Sex and Gender Information Value Date Recorded Sex Assigned at Female 11/04/2018 8:36 AM SUCCESS COACH Gender Identity Female 11/04/2018 8:36 AM SUCCESS COACH Sexual Orientation Straight 11/04/2018 8: 36 AM SUCCESS COACH documented as of this encounter Plan of Treatment Not on file documented as of this encounter Visit Diagnoses Not on filedocumented in this encounter Additional Health Concerns Assessment Noted Time PHQ-9 Depression Total Score: 21 01/08/ 016 9:30 AM CDT documented as of this encounter Care Teams Content Production Specialist Relationship Specialty Start Date End Date Andrez Krause PA-C PCP - General Physician Mud Jack Nozzleman - Medical 10/09/15 05/29/21 Andrez Krause PA-C [address] [place] [address] PCP - Assigned PCP 09/13/15 12/14/18 Heaven Brunson PA-C [facility] [address] [place] [address] PCP - General Physician Mud Jack Nozzleman 05/30/21 Andrez Krause PA-C [address] [place] [address] Assigned PCP 09/13/15 06/20/22 Mona Tian MD [address] [place] [address] Assigned OBGYN Provider 08/03/20 Brett Torres [facility] [id number] [place] [address] Assigned Behavioral Health Provider 07/14/21 01/02/23 Karen Galvan PA-C [address] [facility] [address] [place] [address] Assigned Sleep Provider 09/01/21 Marie Lawrence, [facility] 5775 [facility] 200 [place], [place] [address] Assigned MTM Pharmacist 04/05/22 documented as of this encounter
--- OUTSIDE RECORDS SUMMARY | 2024-05-02 15:39 | XMS_ITS | Encounter Summary ---
Author Organization [place] Address [address] [place] [address] Care Team Providers Care Instantizer Operator Name Role Phone Andrez Krause PA-C Primary Care Provider Andrez Krause PA-C Unavailable + [phone] Andrez Krause PA-C Unavailable + [phone] Mona Tian MD Unavailable +[phone] Heaven Brunson PA-C Primary Care Provider Brett Torres MD Unavailable +[phone] Karen Galvan PA-C Unavailable + [phone] Marie Lawrence [facility] Unavailable +[phone] Encounter Details Date Type Department Care Team (Late st Contact Info) Description 12/31/2015 MyC Medical Advice [address], [address] [place] [address] Brittani Caraballo, RN Social History Tobacco Use Types Packs/Day Years Used Date Smoking Tobacco: Never Alcohol Use Standard Drinks/Week Comments Yes 0 (1 standard drink = 0.6 oz pur e alcohol) Sex and Gender Information Value Date Recorded Sex Assigned at Female 11/04/2018 8:36 AM ASPHALT PAVING SUPERVISOR Gender Identity Female 11/04/2018 8:36 AM ASPHALT PAVING SUPERVISOR Sexual Orientation Straight 11/04/2018 8: 36 AM ASPHALT PAVING SUPERVISOR documented as of this encounter Plan of Treatment Not on file documented as of this encounter Visit Diagnoses Not on filedocumented in this encounter Additional Health Concerns Assessment Noted Time PHQ-9 Depression Total Score: 21 016 8:26 AM CDT documented as of this encounter Care Teams Instantizer Operator Relationship Specialty Start Date End Date Andrez Krause PA-C PCP - General Physician Ferry Terminal Agent - Medical 10/09/15 05/29/21 Andrez Krause PA-C [address] [place] [address] PCP - Assigned PCP 09/13/15 12/14/18 Heaven Brunson PA-C [facility] [address] [place] [address] PCP - General Physician Ferry Terminal Agent 05/30/21 Andrez Krause PA-C [address] [place] [address] Assigned PCP 09/13/15 06/20/22 Mona Tian MD [address] [place] [address] Assigned OBGYN Provider 08/03/20 Brett Torres [facility] [address] [address] Assigned Behavioral Health Provider 07/14/21 01/02/23 Karen Galvan PA-C [address] [address] Assigned Sleep Provider 09/01/21 Marie Lawrence, [facility] 5775 [facility] 200 [place], [place] [id number] Assigned MTM Pharmacist 04/05/22 documented as of this encounter
--- OUTSIDE RECORDS SUMMARY | 2024-05-02 15:39 | XMS_ITS | Encounter Summary ---
Author Organization [place] Address [address] [place] [address]. [place] [address] Care Team Providers Care Slip Feeder Name Role Phone Andrez Krause PA-C Primary Care Provider Andrez Krause PA-C Unavailable + [phone] Andrez Krause PA-C Unavailable + [phone] Mona Tian MD Unavailable +[phone] Heaven Brunson PA-C Primary Care Provider Brett Torres MD Unavailable +[phone] Karen Galvan PA-C Unavailable + [phone] Marie Lawrence [facility] Unavailable +[phone] Reason for Visit * Reason Onset Date Comments Refill Request 01/02/2016 Imitrex Encounter Details Date Type Department Care Team (Late st Contact Info) Description 01/02/2016 MyC Refill [address], [address] [place] [address] Andrez Krause PA-C [address] [place] [address] Refill Request (Imitrex) Social History Tobacco Use Types Packs/Day Years Used Date Smoking Tobacco: Never Alcohol Use Standard Drinks/Week Comments Yes 0 (1 standard drink = 0.6 oz pur e alcohol) Sex and Gender Information Value Date Recorded Sex Assigned at Female 11/04/2018 8:36 AM ZINC CHLORIDE OPERATOR Gender Identity Female 11/04/2018 8:36 AM ZINC CHLORIDE OPERATOR Sexual Orientation Straight 11/04/2018 8: 36 AM ZINC CHLORIDE OPERATOR documented as of this encounter Miscellaneous [...] # refills: 1 Last Office Visit with [facility] or [facility] prescribing provider: 11/23/2015 Next 5 appointments (look out 90 days) Jan 08, 2016 4:30 PM Anastasiya Long with Andrez Krause PA-C [facility] [address] [place] [address] 100 [facility] [address] BP Readings from Last 3 Encounters: [...] MG tablet [Andrez Krause PA-C] Preferred pharmacy: [id number] [address] [facility] Comment: documented in this encounter Plan of [...] documented as of this encounter Care Teams Slip Feeder Relationship Specialty Start Date End Date Andrez Krause PA-C PCP - General Physician Sales And In Home Delivery Specialist - Medical 10/09/15 05/29/21 Andrez Krause PA-C [address] [place] [address] PCP - Assigned PCP 09/13/15 12/14/18 Heaven Brunson PA-C [facility] [address] [place] [address] PCP - General Physician Sales And In Home Delivery Specialist 05/30/21 Andrez Krause PA-C [address] [place] [address] Assigned PCP 09/13/15 06/20/22 Mona Tian MD [address] [place], [place] [address] Assigned OBGYN Provider 08/03/20 Brett Torres [facility] [address] [facility] [address] [place], [place] [address] Assigned Behavioral Health Provider 07/14/21 01/02/23 Karen Galvan PA-C [address] [facility] [address] [place] [address] Assigned Sleep Provider 09/01/21 Marie Lawrence, [facility] [address] [address] Assigned MTM Pharmacist 04/05/22 documented as of this encounter
--- NOTE | 2024-05-02 16:00 | CRLHL7_ITS ---
For Patients: As a result of the Century Cures Act, medical imaging exams and procedure reports are released immediately into your electronic medical record. You may view this report before your referring provider. If you have questions, please contact your health care provider. INDICATION: Abnormal bleeding COMPARISON: None TECHNIQUE: 2D alvarado scale and color Doppler images were acquired of the pelvis using a transabdominal and transvaginal approach. FINDINGS: Sonographic images demonstrate a normal size and smooth outer contour of the uterus. Uterus measures 4.7 cm in length by 3.0 cm in AP diameter by 3.6 cm in transverse dimension. The myometrium has a normal uniform echotexture. The endometrial lining measures 4.6 mm in composite thickness. The right ovary measures 2.7 x 1.8 x 2.6 cm in size and the left ovary measures 2.7 x 1.4 x 1.6 cm. The ovaries demonstrate normal arterial and venous blood flow on color Doppler analysis. There are no suspicious fluid collections within the cul-de-sac. IMPRESSION: Endometrial thickness 4.6 millimeters. No endometrial fluid. No uterine fibroid. Dictated by Sin Bergman MD @ 05/03/2024 9:08:21 AM (Electronically Signed)
== END 2024-05-02 15:34 | disposition home or self-care (01) ==
LOC: US 15:34
PROVIDERS: PCP Physician Assistant Medical; Visit Provider Physician Assistant
DX: N93.9 Abnormal uterine and vaginal bleeding, unspecified (principal); R93.89 Abnormal findings on diagnostic imaging of other specified body structures
CPT/HCPCS: 76830; 76856

== ENCOUNTER 2024-06-06 14:03 | Outpatient (CLI) | payer BC, SELFPAY | END 2024-06-06 14:04 | disposition home or self-care (01) | PROVIDERS: PCP Physician Assistant Medical; Visit Provider Physician Assistant Medical | DX: M79.7 Fibromyalgia (principal); R73.09 Other abnormal glucose; Z15.89 Genetic susceptibility to other disease | CPT/HCPCS: 82607; 82746; 83090 ==

== ENCOUNTER 2025-04-24 09:04 | Outpatient (CLI) | payer BC, SELFPAY ==
[2025-04-24 16:34] LABS: Chlamydia DNA Amplified* NOT DETECTED (No Detected); GC DNA Amplified* NOT DETECTED (No Detected)
[2025-04-27 06:12] LABS: HPV Source Cervical
== END 2025-04-24 09:05 | disposition home or self-care (01) ==
PROVIDERS: PCP Physician Assistant Medical; Visit Provider Physician Assistant Medical
DX: N93.9 Abnormal uterine and vaginal bleeding, unspecified (principal); E66.01 Morbid (severe) obesity due to excess calories; F32.2 Major depressive disorder, single episode, severe without psychotic features; R61 Generalized hyperhidrosis; K76.0 Fatty (change of) liver, not elsewhere classified; R14.0 Abdominal distension (gaseous); Z11.51 Encounter for screening for human papillomavirus (HPV); Z12.4 Encounter for screening for malignant neoplasm of cervix
CPT/HCPCS: 80053; 80061; 82306; 84443; 87491; 87591; 87624; 87625; 88141; 88142

== ENCOUNTER 2025-06-01 11:21 | Emergency (ER) | payer BC, SELFPAY ==
--- OUTSIDE RECORDS SUMMARY | 2025-06-01 11:25 | XMS_ITS | Encounter Summary ---
Author Organization [place] Address [address] [place] [address] Care Team Providers Care Transit Bus Driver Name Role Phone Andrez Krause PA-C Primary Care Provider [phone] Andrez Krause PA-C Unavailable [phone] Andrez Krause PA-C Unavailable +[phone] Mona Tian MD Unavailable [phone] Heaven Brunson PA-C Primary Care Provider Brett Torres MD Unavailable +[phone] Karen Galvan PA-C Unavailable + [phone] Marie Lawrence [facility] Unavailable +[phone] Reason for Visit * Reason Comments Medication Refill gabapentin (NEURONTI N) 100 MG capsule Encounter Details Date Type Department Care Team (Late st Contact Info) Description 01/16/[address], [address] [place] [address] Andrez Krause PA-C [address] [place] [address] Medication Refill (gabapentin (NEURONTIN) 100 MG capsule) Social History Tobacco Use Types Packs/Day Years Used Date Smoking Tobacco: Never Smokeless Tobacco: Never Alcohol Use Standard Drinks/Week Comments Yes 0 (1 standard drink = 0.6 oz pur e alcohol) socially Comments No Sex and Gender Information Value Date Recorded Sex Assigned at Female 11/04/2018 8:36 AM RN TELEPHONE TRIAGE Legal Sex Female 11:10 AM RN TELEPHONE TRIAGE Gender Identity Female 11/04/2018 8:36 AM RN TELEPHONE TRIAGE Sexual Orientation Straight 11/04/2018 8: 36 AM RN TELEPHONE TRIAGE 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 Not on file Not on file documented as of this encounter Miscellaneous Notes * Telephone Encounter - Denia Reddy - 01/17/2017 9:02 AM CDT gabapentin (NEURONTIN) 100 MG capsule Sig: Take 1 capsule (100 mg) by mouth At Bedtime Last Written Prescription Date: 12/18/16 Last Quantity: 30, # refills: 0 Last Office [facility] with [facility] or [facility] prescribing provider: 01/15/2017 Creatinine Date Value Ref [...] for review/approval because: Drug not on the [facility] or [facility] refill protocol or controlled substance TAVO Cesar [...] Depression Total Score: 24 017 7:05 AM RN TELEPHONE TRIAGE documented as of this encounter Care Teams Transit Bus Driver Relationship Specialty Start Date End Date Andrez Krause PA-C PCP - General Physician Quality Assurance Coordinator - Medical 10/09/15 05/29/21 Andrez Krause PA-C [address] [place] [address] PCP - Assigned PCP 09/13/15 12/14/18 Heaven Brunson PA-C [facility] [address] [place] [address] PCP - General Physician Quality Assurance Coordinator 05/30/21 Andrez Krause PA-C [address] [place] [address] Assigned PCP 09/13/15 06/20/22 Mona Tian MD [address] [place] [address] Assigned OBGYN Provider 08/03/20 Brett Torres MD [address] [place] [address]228[address] Assigned Behavioral Health Provider 07/14/21 01/02/23 Karen Galvan PA-C 6363 [facility] 103 [place] [address] Assigned Sleep Provider 09/01/21 Marie Lawrence, [facility] [address] [place], [place] [address] Assigned MTM Pharmacist 04/05/22 documented as of this encounter
--- OUTSIDE RECORDS SUMMARY | 2025-06-01 11:25 | XMS_ITS | Encounter Summary ---
Author Organization [place] Address [address] [place] [address]. [place] [address] Care Team Providers Care Retread Operator Name Role Phone Andrez Krause PA-C Primary Care Provider [phone] Andrez Krause PA-C Unavailable [phone] Mona Tian MD Unavailable [phone] Heaven Brunson PA-C Primary Care Provider Brett Torres MD Unavailable +[phone] Karen Galvan PA-C Unavailable + [phone] Marie Lawrence [facility] Unavailable +[phone] Encounter Details Date Type Department Care Team (Late st Contact Info) Description 05/22/2019 MyC Medical Advice [address], [address] [place] [address] Andrez Krause PA-C [address] [place] [address] Social History Tobacco Use Types Packs/Day Years Used Date Smoking Tobacco: Never Smokeless Tobacco: Never Alcohol Use Standard Drinks/Week Comments Yes 0 (1 standard drink = 0.6 oz pur e alcohol) Social, rare PHQ-2 Answer Date Recorded PHQ-2 Score 3 02/17/2019 Comments No Sex and Gender Information Value Date Recorded Sex Assigned at Female 11/04/2018 8:36 AM BAG BAILER Legal Sex Female 11:10 AM BAG BAILER Gender Identity Female 11/04/2018 8:36 AM BAG BAILER Sexual Orientation Straight 11/04/2018 8: 36 AM BAG BAILER 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[employer] Not on file Not on file Not o n file documented as of this encounter Plan of Treatment Not on file documented as of this encounter Visit Diagnoses Not on filedocumented in this encounter Additional Health Concerns Assessment Noted Time PHQ-9 Depression Total Score: 23 019 9:13 AM CDT documented as of this encounter Care Teams Retread Operator Relationship Specialty Start Date End Date Andrez Krause PA-C PCP - General Physician Soft Sugar Supervisor - Medical 10/09/15 05/29/21 Heaven Brunson PA-C [facility] [address] [place] [address] PCP - General Physician Soft Sugar Supervisor 05/30/21 Andrez Krause PA-C [address] [place] [address] Assigned PCP 09/13/15 06/20/22 Mona Tian MD [address] [place] [address] Assigned OBGYN Provider 08/03/20 Brett Torres MD [address] [place] [address] Assigned Behavioral Health Provider 07/14/21 01/02/23 Karen Galvan PA-C [address] [address] Assigned Sleep Provider 09/01/21 Marie Lawrence, [facility] 5775 [facility] 200 [place] [address] Assigned MTM Pharmacist 04/05/22 documented as of this encounter
--- OUTSIDE RECORDS SUMMARY | 2025-06-01 11:25 | XMS_ITS | Encounter Summary ---
Author Organization [place] Address [address] [place] [address] Care Team Providers Care Dish Technician Name Role Phone Andrez Krause PA-C Unavailable [phone] Heaven Brunson PA-C Primary Care Provider Brett Torres MD Unavailable [phone] Karen Galvan PA-C Unavailable + [phone] Marie Lawrence [facility] Unavailable +[phone] Encounter Details Date Type Department Care Team (Late st Contact Info) Description 07/09/2021 MyC Medical Advice [facility] [address] [facility] [address] [place] [address] Mona Strauss, RN Social History Tobacco Use Types Packs/Day Years Used Date Smoking Tobacco: Never Smokeless Tobacco: Never Alcohol Use Standard Drinks/Week Comments Yes 0 (1 standard drink = 0.6 oz pur e alcohol) Social, rare PHQ-2 Answer Date Recorded PHQ-2 Score 6 07/03/2021 Comments No Sex and Gender Information Value Date Recorded Sex Assigned at Female 11/04/2018 8:36 AM GREENHOUSE STAFF Legal Sex Female 11:10 AM GREENHOUSE STAFF Gender Identity Female 11/04/2018 8:36 AM GREENHOUSE STAFF Sexual Orientation Straight 11/04/2018 8: 36 AM GREENHOUSE STAFF 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 103 [place] [address] Assigned Sleep Provider 09/01/21 Marie Lawrence, [facility] [address] [facility] 200 [place], [place] [address] Assigned MTM Pharmacist 04/05/22 documented as of this encounter
--- OUTSIDE RECORDS SUMMARY | 2025-06-01 11:25 | XMS_ITS | Encounter Summary ---
Author Organization [place] Address [address] [place] [address] Care Team Providers Care Knot Borer Name Role Phone Andrez Krause PA-C Primary Care Provider [phone] Andrez Krause PA-C Unavailable [phone] Andrez Krause PA-C Unavailable [phone] Mona Tian MD Unavailable [phone] Heaven Brunson PA-C Primary Care Provider Brett Torres MD Unavailable +[phone] Karen Galvan-Subha Unavailable + [phone] Marie Lawrence [facility] Unavailable +[phone] Reason for Visit * Reason Onset Date Comments Medication Request 12/07/2018 Atomoxetine 6 0mg Encounter Details Date Type Department Care Team (Late st Contact Info) Description 12/07/2018 [facility] Medical Advice [address], [address] [place] [address] Andrez Krause PA-C [address] [place] [address] Medication Request (Atomoxetine 60mg) Social History Tobacco Use Types Packs/Day Years Used Date Smoking Tobacco: Never Smokeless Tobacco: Never Alcohol Use Standard Drinks/Week Comments Yes 0 (1 standard drink = 0.6 oz pur e alcohol) Social, rare PHQ-2 Answer Date Recorded PHQ-2 Score 6 10/19/2018 Comments No Sex and Gender Information Value Date Recorded Sex Assigned at Female 11/04/2018 8:36 AM FOLDER INSPECTOR Legal Sex Female 11:10 AM FOLDER INSPECTOR Gender Identity Female 11/04/2018 8:36 AM FOLDER INSPECTOR Sexual Orientation Straight 11/04/2018 8: 36 AM FOLDER INSPECTOR 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 Likely would not have had time to do a PA anyway? I can send the refill and see what happens. Andrez ER INSPECTOR * Telephone Encounter - Nalini Conte RN - 12/07/2018 3:32 PM CST Images from the original note were not included. 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 [address] [place] [address] PCP - General Physician Nut Blanker Operator 05/30/21 Andrez Krause PA-C [address] [facility] [address] Assigned PCP 09/13/15 06/20/22 Mona Tian MD [address] [place], [place] [address] Assigned OBGYN Provider 08/03/20 Brett Torres MD [address] [place] [address] [id number] Assigned Behavioral Health Provider 07/14/21 01/02/23 Karen Galvan PA-C [address] [facility] [address] [place], [place] [address] Assigned Sleep Provider 09/01/21 Marie Lawrence [facility] 57[address] [facility] [address] [place], [place] [id number] Assigned MTM Pharmacist 04/05/22 documented as of this encounter
--- OUTSIDE RECORDS SUMMARY | 2025-06-01 11:25 | XMS_ITS | Encounter Summary ---
Author Organization [place] Address [address] [place] [address] Care Team Providers Care Customer Advocate Name Role Phone Andrez Krause PA-C Primary Care Provider [phone] Andrez Krause PA-C Unavailable [phone] Mona Tian MD Unavailable [phone] Heaven Brunson PA-C Primary Care Provider Brett Torres MD Unavailable [phone] Karen Galvan PA-C Unavailable + [phone] Marie Lawrence [facility] Unavailable +[phone] Reason for Visit * Reason Onset Date Comments Medication Refill 04/06/2019 venlafaxine (E FFEXOR-XR) 75 MG 24 hr capsule Encounter Details Date Type Department Care Team (Late st Contact Info) Description 04/05/[address], [address] [place] [address] Andrez Krause PA-C [address] [place] [address] Medication Refill (venlafaxine (EFFEXOR-XR) 75 [...] Assigned at Female 11/04/2018 8:36 AM SUPERVISOR STRIPPING Legal Sex Female 11:10 AM SUPERVISOR STRIPPING Gender Identity Female 11/04/2018 8:36 AM SUPERVISOR STRIPPING Sexual Orientation Straight 11/04/2018 8: 36 AM SUPERVISOR STRIPPING 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 I refilled the #90 tabs. Andrze Arango * Telephone Encounter - Flor Bills [...] documented as of this encounter Care Teams Customer Advocate Relationship Specialty Start Date End Date Andrez Krause PA-C PCP - General Physician Netezza Developer - Medical 10/09/15 05/29/21 Heaven Brunson PA-C [facility] [address] [place] [id number] PCP - General Physician Netezza Developer 05/30/21 Andrez Krause PA-C [address] [place] [address] Assigned PCP 09/13/15 06/20/22 Mona Tian MD [address] [place] [address] Assigned OBGYN Provider 08/03/20 Brett Torres MD [address] [place] [address] Assigned Behavioral Health Provider 07/14/21 01/02/23 Karen Galvan PA-C [address] [facility] 103 [place] [address] Assigned Sleep Provider 09/01/21 Marie Lawrence, [facility] 57[address] [facility] 200 [place], [place] [address] Assigned MTM Pharmacist 04/05/22 documented as of this encounter
--- OUTSIDE RECORDS SUMMARY | 2025-06-01 11:25 | XMS_ITS | Encounter Summary ---
Author Organization [place] Address [address] [place] [address] Care Team Providers Care Supervisor Boarding Name Role Phone Andrez Krause PA-C Primary Care Provider [phone] Andrez Krause PA-C Unavailable [phone] Andrez Krause PA-C Unavailable [phone] Mona Tian MD Unavailable [phone] Heaven Brunson PA-C Primary Care Provider Brett Torres MD Unavailable [phone] Karen Galvan-Subha Unavailable + [phone] Marie Lawrence [facility] Unavailable [phone] Reason for Visit * Reason Onset Date Comments Forms 12/13/2018 Unemployment Encounter Details Date Type Department Care Team (Late st Contact Info) Description 12/13/2018 MyC Medical Advice [address], [address] [place] [address] Andrez Krause PA-C [address] [place] [address] Forms (Unemployment) Social History Tobacco Use Types Packs/Day Years Used Date Smoking Tobacco: Never Smokeless Tobacco: Never Alcohol Use Standard Drinks/Week Comments Yes 0 (1 standard drink = 0.6 oz pur e alcohol) Social, rare PHQ-2 Answer Date Recorded PHQ-2 Score 6 10/19/2018 Comments No Sex and Gender Information Value Date Recorded Sex Assigned at Female 11/04/2018 8:36 AM INSTRUMENT REPAIRER Legal Sex Female 11:10 AM INSTRUMENT REPAIRER Gender Identity Female 11/04/2018 8:36 AM INSTRUMENT REPAIRER Sexual Orientation Straight 11/04/2018 8: 36 AM INSTRUMENT REPAIRER 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 I'll do the first Rx now. Thanks! Andrez RUMENT REPAIRER * Telephone Encounter - Nalini Conte RN - 12/16/2018 12:06 PM CST Please approve rx for EMGALITY as patient is willing to give it a try. She will rock picker the card to you have provider for the 12 month free. Nalini Conte RN RUMENT REPAIRER * Telephone Encounter - Nalini Conte RN - 12/16/2018 11:28 AM CST Form faxed to [phone]. Copy placed in abstracting. Original in my in-basket waiting for patient to let us know if she would like to rock picker copy of have us mail it to her. I also have the Emgality Savings Card for patient in my in-basket if patient is interested in it. Waiting for patient to let us know about this as well. Nalini Conte RN RUMENT REPAIRER * Telephone Encounter - Andrez Krause PA-C - 12/15/2018 2:39 PM INSTRUMENT REPAIRER OK, Ill get it signed. Andrez RUMENT REPAIRER * Telephone Encounter - Nalini Conte RN - 12/15/2018 1:20 PM CST This message was not routed to you as there was already a phone message created for the form. This is NOT a permanent disability from what I can see. Nalini Conte, RN RUMENT REPAIRER * Telephone Encounter - Andrez Krause PA-C - 12/15/2018 12:52 PM INSTRUMENT REPAIRER Hey! I see this in my actual basket now, but was it routed to me? I'm not signing for any permamentdisability am I? Just for dates gone at this point? Just wondering when looking at the form.... I can sign it otherwise and she can pick it up LYSSAChelsea Maguire RUMENT REPAIRER documented in this encounter Plan of Treatment Not on file documented as of this encounter Visit Diagnoses Diagnosis Migraine without aura and without status migrainosus, not intractable- Primary Migraine without aura, without mention of intractable migraine without mention of status migrainosus documented in this encounter Additional Health Concerns Assessment Noted Time PHQ-9 Depression Total Score: 21 019 5:05 PM INSTRUMENT REPAIRER documented as of this encounter Care Teams Supervisor Boarding Relationship Specialty Start Date End Date Andrez Krause PA-C PCP - General Physician Nocturnist Physician - Medical 10/09/15 05/29/21 Andrez Kruase PA-C [address] [place] [address] PCP - Assigned PCP 09/13/15 12/14/18 Heaven Brunson PA-C [facility] [address] [place] [address] PCP - General Physician Nocturnist Physician 05/30/21 Andrez Krause PA-C [address] [place] [address] Assigned PCP 09/13/15 06/20/22 Mona Tian MD [address] [place] [address] Assigned OBGYN Provider 08/03/20 Brett Torres MD [address] [place] [address]38[address] Assigned Behavioral Health Provider 07/14/21 01/02/23 Karen Galvan PA-C 6363 [facility] 103 [place], [place] [address] Assigned Sleep Provider 09/01/21 Marie Lawrence, [facility] 57[address] [facility] 200 [place] [address] Assigned MTM Pharmacist 04/05/22 documented as of this encounter
--- OUTSIDE RECORDS SUMMARY | 2025-06-01 11:25 | XMS_ITS | Encounter Summary ---
Author Organization [place] Address [address] [place] [address] Care Team Providers Care Financial Sales Assistant Name Role Phone Andrez Krause PA-C Primary Care Provider [phone] Andrez Krause PA-C Unavailable [phone] Andrez KrauseC Unavailable [phone] Mona Tian MD Unavailable [phone] Heaven BrunsonC Primary Care Provider Brett Torres MD Unavailable [phone] Karen Galvan-C Unavailable + [phone] Marie Lawrence [facility] Unavailable [phone] Encounter Details Date Type Department Care Team (Late st Contact Info) Description 12/31/2015 MyC Medical Advice [address], [address] [place] [address] Brittani Caraballo RN Social History Tobacco Use Types Packs/Day Years Used Date Smoking Tobacco: Never Alcohol Use Standard Drinks/Week Comments Yes 0 (1 standard drink = 0.6 oz pur e alcohol) Comments No Sex and Gender Information Value Date Recorded Sex Assigned at Female 11/04/2018 8:36 AM PHARMACEUTICAL SALES SPECIALIST Legal Sex Female 11:10 AM PHARMACEUTICAL SALES SPECIALIST Gender Identity Female 11/04/2018 8:36 AM PHARMACEUTICAL SALES SPECIALIST Sexual Orientation Straight 11/04/2018 8: 36 AM PHARMACEUTICAL SALES SPECIALIST documented as of this encounter Plan of Treatment Not on file documented as of this encounter Visit Diagnoses Not on filedocumented in this encounter Additional Health Concerns Assessment Noted Time PHQ-9 Depression Total Score: 016 8:26 AM CDT documented as of this encounter Care Teams Financial Sales Assistant Relationship Specialty Start Date End Date Andrez Krause PA-C PCP - General Physician Tape Sewer - Medical 10/09/15 05/29/21 Andrez Krause PA-C [address] [facility] [place] [address] PCP - Assigned PCP 09/13/15 12/14/18 Heaven Brunson PA-C [facility] [address] [place] [address] PCP - General Physician Tape Sewer 05/30/21 Andrez Krause PA-C [address] [place] [address] Assigned PCP 09/13/15 06/20/22 Mona Tian MD [address] [place] [address] Assigned OBGYN Provider 08/03/20 Brett Torres MD [address] [place] [address] Assigned Behavioral Health Provider 07/14/21 01/02/23 Karen Galvan PA-C [address] [address] Assigned Sleep Provider 09/01/21 Marie Lawrence [facility] 57[address] [facility] 200 [place] [address] Assigned MTM Pharmacist 04/05/22 documented as of this encounter
--- OUTSIDE RECORDS SUMMARY | 2025-06-01 11:25 | XMS_ITS | Encounter Summary ---
Author Organization [place] Address [address] [place] [address]. [place] [address] Care Team Providers Care Exec. Creative Director Name Role Phone Andrez Krause PA-C Primary Care Provider [phone] Andrez Krause PA-C Unavailable [phone] Mona Tian MD Unavailable [phone] Heaven Brunson PA-C Primary Care Provider Brett Torres MD Unavailable [phone] Karen Galvan PA-C Unavailable + [phone] Marie Lawrence [facility] Unavailable [phone] Encounter Details Date Type Department Care Team (Late st Contact Info) Description 01/23/2019 MyC Medical Advice [address], [address] [place] [address] Andrez Krause PA-C [address] [place] [address] Social History Tobacco Use Types Packs/Day Years Used Date Smoking Tobacco: Never Smokeless Tobacco: Never Alcohol Use Standard Drinks/Week Comments Yes 0 (1 standard drink = 0.6 oz pur e alcohol) Social, rare PHQ-2 Answer Date Recorded PHQ-2 Score 6 10/19/2018 Comments No Sex and Gender Information Value Date Recorded Sex Assigned at Female 11/04/2018 8:36 AM BILINGUAL RECEPTIONIST Legal Sex Female 11:10 AM BILINGUAL RECEPTIONIST Gender Identity Female 11/04/2018 8:36 AM BILINGUAL RECEPTIONIST Sexual Orientation Straight 11/04/2018 8: 36 AM BILINGUAL RECEPTIONIST 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 Creative Director Relationship Specialty Start Date End Date Andrez Krause PA-C PCP - General Physician Unclaimed Property Manager - Medical 10/09/15 05/29/21 Heaven Brunson PA-C [facility] [address] [place] [address] PCP - General Physician Unclaimed Property Manager 05/30/21 Andrez Krause PA-C [address] [place] [address] Assigned PCP 09/13/15 06/20/22 Mona Tian MD [address] [place], [place] [address] Assigned OBGYN Provider 08/03/20 Brett Torres MD [address] [place] [address] Assigned Behavioral Health Provider 07/14/21 01/02/23 Karen Galvan PA-C [address] [address] Assigned Sleep Provider 09/01/21 Marie Lawrence, [facility] 5775 [facility] 200 [place] [address] Assigned MTM Pharmacist 04/05/22 documented as of this encounter
--- OUTSIDE RECORDS SUMMARY | 2025-06-01 11:25 | XMS_ITS | Encounter Summary ---
Author Organization [place] Address [address] [place] [address] Care Team Providers Care Ticket Collector Name Role Phone Andrez Krause PA-C Primary Care Provider Andrez Krause PA-C Unavailable [phone] Mona Tian MD Unavailable [phone] Heaven Brunson PA-C Primary Care Provider Brett Torres MD Unavailable [phone] Karen Galvan PA-C Unavailable + [phone] Marie Lawrence [facility] Unavailable [phone] Encounter Details Date Type Department Care Team (Late st Contact Info) Description 04/01/2019 MyC Medical Advice [facility] [address] [place] [address] Tadeo Wilks MD 303 [facility] [address] [place], [place] [address] Social History Tobacco Use Types Packs/Day Years Used Date Smoking Tobacco: Never Smokeless Tobacco: Never Alcohol Use Standard Drinks/Week Comments Yes 0 (1 standard drink = 0.6 oz pur e alcohol) Social, rare PHQ-2 Answer Date Recorded PHQ-2 Score 3 02/17/2019 Comments No Sex and Gender Information Value Date Recorded Sex Assigned at Female 11/04/2018 8:36 AM HEAD OF OPERATION AND LOGISTICS Legal Sex Female 11:10 AM HEAD OF OPERATION AND LOGISTICS Gender Identity Female 11/04/2018 8:36 AM HEAD OF OPERATION AND LOGISTICS Sexual Orientation Straight 11/04/2018 8: 36 AM HEAD OF OPERATION AND LOGISTICS 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 Not on file Not on file Not o n file documented as of this encounter Plan of Treatment Not on file documented as of this encounter Visit Diagnoses Not on filedocumented in this encounter Additional Health Concerns Assessment Noted Time PHQ-9 Depression Total Score: 17 05 019 8:25 AM CDT documented as of this encounter Care Teams Ticket Collector Relationship Specialty Start Date End Date Andrez Krause PA-C PCP - General Physician Hide Curer - Medical 10/09/15 05/29/21 Heaven Brunson PA-C [facility] [address] [place] [address] PCP - General Physician Hide Curer 05/30/21 Andrez Krause PA-C [address] [place] [address] Assigned PCP 09/13/15 06/20/22 Mona Tian MD [address] [place] [address] Assigned OBGYN Provider 08/03/20 Brett Torres MD [address] [place] [id number] Assigned Behavioral Health Provider 07/14/21 01/02/23 Karen Gavlan PA-C [address] [address] Assigned Sleep Provider 09/01/21 Marie Lawrence [facility] 5775 [facility] 200 [place] [address] Assigned MTM Pharmacist 04/05/22 documented as of this encounter
--- OUTSIDE RECORDS SUMMARY | 2025-06-01 11:25 | XMS_ITS | Encounter Summary ---
Author Organization [facility] Address [address] [place] [address] Care Team Providers Care Application Systems Administrator Name Role Phone Luis A Velazco MD Unavailable [phone] Heaven Brunson PAJoleen Primary Care Provider + [phone] Encounter Details Date Type Department Care Team (Late st Contact Info) Description 04/18/2025 Care Coordination [facility] [address] [facility]. [address] [place] [phone] Jovan Miguel MD [address] [facility] [address] [place] [address] Social History Tobacco Use Types Packs/Day Years Used Date Smoking Tobacco: Never Smokeless Tobacco: Never Alcohol Use Standard Drinks/Week Comments Yes 0 (1 standard drink = 0.6 oz pur e alcohol) light Comments Unknown Sex and Gender Information Value Date Recorded Sex Assigned at Not on file Legal Sex Female 7:19 PM CDT Gender Identity Not on file Sexual Orientation Not on file documented as of this encounter Plan of Treatment Not on file documented as of this encounter Visit Diagnoses Not on filedocumented in this encounter Care Teams Application Systems Administrator Relationship Specialty Start Date End Date Luis A Velazco MD [address] [place] [address] [place] [address] PCP - Neurologist Neurology 09/17/21 Heaven Brunson PA-C [address] [place] [address] PCP - General Physician Deli Worker 01/20/23 documented as of this encounter
--- OUTSIDE RECORDS SUMMARY | 2025-06-01 11:25 | XMS_ITS | Clinical Summary ---
Author Organization [facility] Address [address] [place] [address] Care Team Providers Care Broach Operator Name Role Phone Luis A Velazco MD Unavailable [phone] Heaven Brunson PA-C Primary Care Provider Allergies Active Allergy Reactions Criticality Noted Date Comments Adhesive Dermatitis,Itching,Rash 04/21/2023 Iodine Dermatitis,Itching,Rash 04/23/2022 Mold 10/15/2023 Medications metFORMIN ER (GLUCOPHAGE XR) 500 mg oral extended release tablet 24 HR 1000 MG BY MOUTH DAILY: take 2 tablets once daily with breakfast for prediabetes and weight management 2 Active ondansetron (ZOFRAN) 4 mg oral ODT 1 tablet orally every 6 hours as needed 3 Active rimegepant (NURTEC ODT) 75 mg oral TbDL Take one tablet every other day for headache prevention. 16 tablet 11 4 Active metoprolol succinate, XL, (TOPROL XL) 25 mg oral extended release tablet 24 HR Take 1 tablet (25 mg) by mouth. 4 Active clonazePAM (KLONOPIN) 0.5 mg oral tablet 1 tab(s) orally once a day as needed* 4 Active AUVELITY 45-105 mg oral TbIE 1 tab(s) orally once a day for 3 days, then increase to 1 tab orally twice a day* 4 Active lisdexamfetamin e (VYVANSE) 20 mg oral capsule 1 capSULE orally every morning* 4 Active metoclopramide HCl (REGLAN) 5 mg oral tablet 5 - 10 mg (1 - 2 x 5 mg) orally every 6 hours As Needed for nausea and vomiting; one tablet every 6 hours as needed for nausea* 4 Active zavegepant (ZAVZPRET) 10 mg/actuation Nasal [place] Use one nasal spray at onset of headache, no more than one spray in a day 8 each 5 4 Active Candesartan 8 mg oral Tab Take 8 mg by mouth once daily. 30 tablet 5 5 Active baclofen (LIORESAL) 10 mg oral tablet Take 1 tablet (10 mg) by mouth twice a day as needed. 60 tablet 5 5 Active Active Problems Problem Noted Date Diagnosed Date Abnormal biliary HIDA scan 08/23/2024 Chronic sinusitis 08/23/2024 Overview (08/23/2024): 11/05/2022- Topper current nasal spray as it is likely contributing to rebound congestion. Switch to either Nasacort or Flonase. Trial of singular 10 mg daily ENT referral Elevated hemoglobin A1c 08/23/2024 Overview (08/23/2024): 03/12/2022-A1c 6.2% 10/19/2022-A1c 5.9% Eosinophilia 08/23/2024 Epigastric pain 08/23/2024 Overview (08/23/2024): 11/06/2021-CT scan- acute appendicitis Fatty liver 08/23/2024 Overview (08/23/2024): Right upper quadrant ultrasound-10/22/2023-fatty liver Postprandial abdominal bloating 08/23/2024 Overview (08/23/2024): 08/01/2020- celiac screen; negative 11/10/2023-patient had EGD 11/15/2023-HIDA scan; Hyperkinetic gallbladder. Enterogastric reflux, correlate for alkaline gastritis. Essential hypertension 11/23/2023 Irritable bowel syndrome wit h both constipation and diarrhea 11/23/2023 QUEVEDO (nonalcoholic steatohepatitis) 11/23/2023 Severe episode of recurrent major depressive disorder, without psychotic features 11/23/2023 Sinus tachycardia 11/23/2023 Overview (08/23/2024): 03/2023- Holter monitor Attention deficit hyperactiv ity disorder (ADHD), predominantly inattentive type 10/21/2022 Chronic headache disorder 10/21/2022 Environmental allergies 10/21/2022 Menorrhagia with irregular cycle 10/21/2022 Morbid obesity with body mas s index (BMI) of 40.0 to 44.9 in adult 10/21/2022 Polycystic ovary syndrome 10/21/2022 Status post laparoscopic appendectomy 10/21/2022 Status post surgical removal of both fallopian t ubes 03/25/2022 Bilateral foot pain 11/01/2021 Bipolar disorder with depression 11/01/2021 Chronic daily headache 11/01/2021 Dyspareunia 11/01/2021 Insomnia 11/01/2021 Major depressive disorder, severe 11/01/2021 Pelvic pain 11/01/2021 PTSD (post-traumatic stress disorder) 11/01/2021 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 [place] [address] Jovan Miguel MD 03/28/2025 Travel from Last 3 Months Immunizations Immunization Administration Dates Next Due Vivek COVID-19 09/23/2021,02/25/2021 Family History Medical History Relation Comments Migraines Other Relation Status Comments Other Social History Tobacco Use Types Packs/Day Years Used Date Smoking Tobacco: Never Smokeless Tobacco: Never Alcohol Use Standard Drinks/Week Comments Yes 0 (1 standard drink = 0.6 oz pur e alcohol) light Comments Unknown Sex and Gender Information Value Date Recorded Sex Assigned at Not on file Legal Sex Female 7:19 PM CDT Gender Identity Not on file Sexual Orientation Not on file Last Filed Vital Signs Vital Sign Reading Time Taken Comments Blood Pressure 120/69 03/28/2025 12:47 PM CDT Pulse 66 03/28/2025 12:47 PM CDT Temperature 36.7 C (98 F) 03/28/2025 12:47 PM CDT Respiratory Rate 16 03/28/2025 12:47 PM CDT Oxygen Saturation 99% 03/28/2025 12:47 PM CDT Inhaled Oxygen Concentration - - Weight 99.3 kg (219 lb) 08/23/2024 10:18 AM U.S. REPRESENTATIVE Height 167.6 cm (5' 6) 08/23/2024 10:18 AM U.S. REPRESENTATIVE Body Mass Index 35.35 08/23/2024 10:18 AM U.S. REPRESENTATIVE Plan of Treatment Health Maintenance Due Date Last Done Comments Hepatitis C Screening 1993 Pap Smear 1993 Anxiety Follow-Up (SHAYY-7) 1994 Depression Follow-Up (PHQ-9) 1994 Influenza Vaccine (#1) 2025 , 08/26/2023, 08/27/2010 Adult Tetanus Booster 02/07/2031 02/07/2021 , 02/07/2021, 01/03/2011, Additional history exists RSV Vaccines (1 - 1-dose 75+ series) 02/12/2068 HPV Vaccine Completed 09/20/2007, 08/0 05/2007, 02/12/2007, Additional history exists COVID-19 Vaccine Completed 10/10/2024, , 09/23/2021, Additional history exists Meningococcal B Vaccine Aged Out No l onger eligible based on patient's age to complete this topic Pneumococcal Vaccine Aged Out No long er eligible based on patient's age to complete this topic Insurance [employer] , [address] [place] [address] Care Teams Broach Operator Relationship Specialty Start Date End Date Luis A Velazco MD [address] [place] [address] [address] [place] [address] PCP - Neurologist Neurology 09/17/21 Heaven Brunson PA-C [address] [place] [address] PCP - General Physician Stucco Applicator 01/20/23
--- OUTSIDE RECORDS SUMMARY | 2025-06-01 11:25 | XMS_ITS | Encounter Summary ---
Author Organization [facility] Address [address] [place] [address] Care Team Providers Care Microelectronics Engineer Name Role Phone Andrez Krause PA-C Primary Care Provider [phone] Andrez Krause PA-C Unavailable [phone] Andrez Krause PA-C Unavailable [phone] Mona Tian MD Unavailable [phone] Heaven Brunson PA-C Primary Care Provider Brett Torres MD Unavailable [phone] Karen Galvan PA-C Unavailable + [phone] Marie Lawrence [facility] Unavailable [phone] Reason for Visit * Reason Onset Date Comments Refill Request 11/02/2018 erenumab-aooe (A IMOVIG) 70 MG/ML injection Encounter Details Date Type Department Care Team (Late st Contact Info) Description 11/02/2018 MyC Refill [address], [address] [place] [address] Andrez Krause PA-C [address] [place] [address] Refill Request (erenumab-aooe (AIMOVIG) 70... 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 N RESOURCE INTERN * Telephone Encounter - Denia Reddy - [...] 01/25/2019) for Med Check. Future Office Visit: N RESOURCE INTERN documented in this encounter Plan of Treatment [...] documented as of this encounter Care Teams Microelectronics Engineer Relationship Specialty Start Date End Date Andrez Krause PA-C PCP - General Physician Center Consultant - Medical 10/09/15 05/29/21 Andrez Krause PA-C [address] [place] [address] PCP - Assigned PCP 09/13/15 12/14/18 Heaven Brunson PA-C [facility] [address], [place] [address] PCP - General Physician Center Consultant 05/30/21 Andrez Krause PA-C [address] [place] [address] Assigned PCP 09/13/15 06/20/22 Mona Tian MD [address] [place] [address] Assigned OBGYN Provider 08/03/20 Brett Torres MD [address] [place] [address] Assigned Behavioral Health Provider 07/14/21 01/02/23 Karen Galvan PA-C [address] [facility] 103 [place] [address] Assigned Sleep Provider 09/01/21 Marie Lawrence, [facility] [address] [facility] [address] [place], [place] [address] Assigned MTM Pharmacist 04/05/22 documented as of this encounter
--- OUTSIDE RECORDS SUMMARY | 2025-06-01 11:25 | XMS_ITS | Encounter Summary ---
Author Organization [facility] Address [address] [place] [address] Care Team Providers Care Metallographer Name Role Phone Andrez Krause PA-C Primary Care Provider [phone] Andrez Krause PA-C Unavailable [phone] Mona Tian MD Unavailable [phone] Heaven Brunson PA-C Primary Care Provider Brett Torres MD Unavailable [phone] Karen Galvan PA-C Unavailable + [phone] Marie Lawrence [facility] Unavailable [phone] Reason for Visit * Reason Onset Date Comments IUD 12/06/2019 Concerns Encounter Details Date Type Department Care Team (Late st Contact Info) Description 12/06/2019 MyC Medical Advice [address], [address] [place] [address] Andrez Krause PA-C [address] [place] [address] IUD (Concerns) Social History Tobacco Use Types Packs/Day Years Used Date Smoking Tobacco: Never Smokeless Tobacco: Never Alcohol Use Standard Drinks/Week Comments Yes 0 (1 standard drink = 0.6 oz pur e alcohol) Social, rare PHQ-2 Answer Date Recorded PHQ-2 Score 3 02/17/2019 Comments No Sex and Gender Information Value Date Recorded Sex Assigned at Female 11/04/2018 8:[address] SQL DEVELOPER Legal Sex Female 11:[address] SQL DEVELOPER Gender Identity Female 11/04/2018 8:[address] SQL DEVELOPER Sexual Orientation Straight 11/04/2018 8: [address] SQL DEVELOPER 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 May not need it actually physically checked. Sometimes we can give OCP's or progesterone to stop bleeding that has been prolonged. Phone or evisit may still work for this. Andrez Arango SQL DEVELOPER documented in this encounter Plan of Treatment Not on file documented as of this encounter Visit Diagnoses Not on filedocumented in this encounter Additional Health Concerns Assessment Noted Time PHQ-9 Depression Total Score: 23 019 9:13 AM CDT documented as of this encounter Care Teams Metallographer Relationship Specialty Start Date End Date Andrez Krause PA-C PCP - General Physician Bar Steward - Medical 10/09/15 05/29/21 Heaven Brunson PA-C [facility] [address] [place] [address] PCP - General Physician Bar Steward 05/30/21 Andrez Krause PA-C [address] [place] [address] Assigned PCP 09/13/15 06/20/22 Mona Tian MD [address] [place] [address] Assigned OBGYN Provider 08/03/20 Brett Torres MD [address] [facility] [address] [place], [place] [address] Assigned Behavioral Health Provider 07/14/21 01/02/23 Karen Galvan PA-C [address] [facility] [address] [place], [place] [address] Assigned Sleep Provider 09/01/21 Marie Lawrence, [facility] [address] [facility] [address] [place], [place] [address] Assigned MTM Pharmacist 04/05/22 documented as of this encounter
--- OUTSIDE RECORDS SUMMARY | 2025-06-01 11:25 | XMS_ITS | Encounter Summary ---
Author Organization [facility] Address [address] [place] [address] Care Team Providers Care Typing Secretary Name Role Phone Andrez Krause PA-C Primary Care Provider Andrez Krause PA-C Unavailable [phone] Mona Tian MD Unavailable [phone] Heaven Brunson PA-C Primary Care Provider Brett Torres MD Unavailable [phone] Karen Galvan PA-C Unavailable + [phone] Marie Lawrence [facility] Unavailable [phone] Reason for Visit * Reason Onset Date Comments Vaginal Problem 02/10/2020 bleeding Encounter Details Date Type Department Care Team (Late st Contact Info) Description 02/10/2020 MyC Medical Advice [address] [address] Mona Tian MD [facility] [place] [address] Vaginal Problem (bleeding) Social History Tobacco Use Types Packs/Day Years Used Date Smoking Tobacco: Never Smokeless Tobacco: Never Alcohol Use Standard Drinks/Week Comments Yes 0 (1 standard drink = 0.6 oz pur e alcohol) Social, rare PHQ-2 Answer Date Recorded PHQ-2 Score 3 02/17/2019 Comments No Sex and Gender Information Value Date Recorded Sex Assigned at Female 11/04/2018 8:36 AM DIRECTOR OF LABOR AND DELIVERY Legal Sex Female 11:10 AM DIRECTOR OF LABOR AND DELIVERY Gender Identity Female 11/04/2018 8:36 AM DIRECTOR OF LABOR AND DELIVERY Sexual Orientation Straight 11/04/2018 8: 36 AM DIRECTOR OF LABOR AND DELIVERY 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 No / Unsure 01/20/2020 2:43 PM CDT documented as of this encounter Miscellaneous Notes * Telephone Encounter - Deb Crockett RN - 02/10/2020 1:01 PM CDT Moqomhart message sent with advise. Deb Crockett RN [...] Noted Time PHQ-9 Depression Total Score: 019 9:13 AM CDT documented as of this encounter Care Teams Typing Secretary Relationship Specialty Start Date End Date Andrez Krause PA-C PCP - General Physician Care Specialist - Medical 10/09/15 05/29/21 Heaven Brunson PA-C [facility] [address] [place] [address] PCP - General Physician Care Specialist 05/30/21 Andrez Krause PA-C [address] [place] [address] Assigned PCP 09/13/15 06/20/22 Mona Tian MD [address] [place], [place] [address] Assigned OBGYN Provider 08/03/20 Brett Torres MD [address] [place], [place] [address] Assigned Behavioral Health Provider 07/14/21 01/02/23 Karen Galvan PA-C [address] [facility] [address] [place], [place] [address] Assigned Sleep Provider 09/01/21 Marie Lawrence, [facility] [facility] [address] [place], [place] [address] Assigned MTM Pharmacist 04/05/22 documented as of this encounter
--- OUTSIDE RECORDS SUMMARY | 2025-06-01 11:25 | XMS_ITS | Encounter Summary ---
Author Organization [facility] Address [address] [place] [address] Care Team Providers Care Housecalls Nurse Name Role Phone Andrez Krause PA-C Primary Care Provider Andrez Krause PA-C Unavailable [phone] Mona Tian MD Unavailable [phone] Heaven Brunson PA-C Primary Care Provider Brett Torres MD Unavailable [phone] Karen Galvan PA-C Unavailable + [phone] Marie Lawrence [facility] Unavailable [phone] Reason for Visit * Reason Onset Date Comments Headache 03/20/2019 Encounter Details Date Type Department Care Team (Late st Contact Info) Description 03/20/2019 MyC Medical Advice [facility] [address] [place] [address] Tadeo Wilks MD [address] [facility] [address] [place] [address] Headache Social History Tobacco Use Types Packs/Day Years Used Date Smoking Tobacco: Never Smokeless Tobacco: Never Alcohol Use Standard Drinks/Week Comments Yes 0 (1 standard drink = 0.6 oz pur e alcohol) Social, rare PHQ-2 Answer Date Recorded PHQ-2 Score 3 02/17/2019 Comments No Sex and Gender Information Value Date Recorded Sex Assigned at Female 11/04/2018 8:36 AM CEREAL MAKER Legal Sex Female 11:10 AM CEREAL MAKER Gender Identity Female 11/04/2018 8:36 AM CEREAL MAKER Sexual Orientation Straight 11/04/2018 8: 36 AM CEREAL MAKER 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 [facility] documented in this encounter Plan of Treatment Not on file documented as of this encounter Visit Diagnoses Not on filedocumented in this encounter Additional Health Concerns Assessment Noted Time PHQ-9 Depression Total Score: 17 019 8:25 AM CDT documented as of this encounter Care Teams Housecalls Nurse Relationship Specialty Start Date End Date Andrez Krause PA-C PCP - General Physician Log Carrier Operator - Medical 10/09/15 05/29/21 Heaven Brunson PA-C [facility] [address] [place] [address] PCP - General Physician Log Carrier Operator 05/30/21 Andrez Krause PA-C [address] [place] [address] Assigned PCP 09/13/15 06/20/22 Mona Tian MD [address] [place] [address] Assigned OBGYN Provider 08/03/20 Brett Torres MD [address] [place], [place] [address] Assigned Behavioral Health Provider 07/14/21 01/02/23 Karen Galvan PA-C [address] [facility] [address] [facility] [address] [place], [place] [address] Assigned Sleep Provider 09/01/21 Marie Lawrence, [facility] [address] [facility] [address] [place], [place] [id number] Assigned MTM Pharmacist 04/05/22 documented as of this encounter
--- OUTSIDE RECORDS SUMMARY | 2025-06-01 11:25 | XMS_ITS | Patient Health Record ---
Author Organization [facility] Address [address] [place] [address] [address] [place] [address] Care Team Providers Care Pattern Maker Name Role Phone eHaven Brunson Primary Care Provider UnavailGraeme Jcakson Unavailable [phone] Luis A Rudolph Unavailable Unavai lable Allergies Allergen (clinical drug ingredient) Drug/Non Drug Allergy documented on EMR Reaction Allergy Type Onset Date Status contrast (uncoded) redness and swelling at IV Allergy Active Reason For Referral No Information Medications Medication SIG (Take, Route, Frequency, Duration) Notes [...] food O rally Once a day Unknown Problems Problem Type SNOMED Code ICD Code Onset Dates Problem Status W/U Status Risk Notes Problem Migraine without aura (93157743) Migraine without aura, not intractable, with status migrainosus (G43.001) Active confirmed Problem Chronic pain (77933037) Other chronic pain (G89.29) Active confirmed Problem Cervical spondylosis without myelopathy (076182789) Spondylosis without myelopathy or radiculopathy, cervical region (M47.812) Active confirmed Problem Headache (18536425) Headache, unspecified (R51.9) Active confirmed Plan Of Treatment No Information Insurance Providers Payer Name Payer Address Payer Phone Subscriber Number Group Number Insured Name Patient Relationship to Insured Coverage Start Date Coverage End Date [facility] [address] [address] [place] [address] [id number] Starr Remy Self - patient is the insured Medical (General) History Medical History History ICD Code Anxiety Depression Headaches Migraines Surgical History Surgery Date(Month/Year) Appendectomy 11/08/2021
--- OUTSIDE RECORDS SUMMARY | 2025-06-01 11:25 | XMS_ITS | Encounter Summary ---
Author Organization [facility] Address [address] [place] [address] Care Team Providers Care Program Management Manager Name Role Phone Andrez Krasue PA-C Primary Care Provider [phone] Andrez Krause PA-C Unavailable [phone] Andrez Krause PA-C Unavailable [phone] Mona Tian MD Unavailable [phone] Heaven Brunson PA-C Primary Care Provider Brett Torres MD Unavailable [phone] Karen Galvan PA-C Unavailable [phone] Marie Lawrence [facility] Unavailable [phone] Reason for Visit * Reason Onset Date Comments Refill Request 04/29/2018 Encounter Details Date Type Department Care Team (Late st Contact Info) Description 04/29/2018 MyC Refill [facility] [address] [place] [address] Rhonda Middleton PA-C [address] [place] [address] Refill Request Social History Tobacco Use Types Packs/Day Years Used Date Smoking Tobacco: Never Smokeless Tobacco: Never Alcohol Use Standard Drinks/Week Comments Yes 0 (1 standard drink = 0.6 oz pur e alcohol) Social, rare Comments No Sex and Gender Information Value Date Recorded Sex Assigned at Female 11/04/2018 8:36 AM LEAN MANUFACTURING SPECIALIST Legal Sex Female 11:10 AM LEAN MANUFACTURING SPECIALIST Gender Identity Female 11/04/2018 8:36 AM LEAN MANUFACTURING SPECIALIST Sexual Orientation Straight 11/04/2018 8: 36 AM LEAN MANUFACTURING SPECIALIST 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 LM, waiting callback. Pt is a FM Pt with AP. Medication was [facility] provider. Pt needs to follow up with PCP to discuss refills. Please help her schedule when she calls back. Thanks. Sweta Danielle RN -- [employer] [facility] * Telephone Encounter - Sweta Danielle RN - 04/29/2018 8:49 AM CDTMessage from [facility]: Original authorizing provider: LUIS ANTONIO Mendoza Jonel would like a refill of the following medications: erenumab-aooe (AIMOVIG) 70 MG/ML injection [Rhonda Middleton PA-C] Preferred pharmacy: [id number] [place], [place] - [address] [facility] Comment: documented in this encounter Plan of [...] as of this encounter Care Teams Program Management Manager Relationship Specialty Start Date End Date Andrez Krause PA-C PCP - General Physician Human Performance Professor - Medical 10/09/15 05/29/21 Andrez Krause PA-C [address] [place] [address] PCP - Assigned PCP 09/13/15 12/14/18 Heaven Brunson PA-C [facility] [address] [place] [address] PCP - General Physician Human Performance Professor 05/30/21 Andrez Krause PA-C [address] [place] [address] Assigned PCP 09/13/15 06/20/22 Mona Tian MD [address] [place], [place] [address] Assigned OBGYN Provider 08/03/20 Brett Torres MD [address] [place], [place] [address] Assigned Behavioral Health Provider 07/14/21 01/02/23 Karen Galvan PA-C 6[address] [facility] 103 [place], [place] [address] Assigned Sleep Provider 09/01/21 Marie Lawrence, [facility] [address] [facility] [address] [place], [place] [id number] Assigned MTM Pharmacist 04/05/22 documented as of this encounter
--- OUTSIDE RECORDS SUMMARY | 2025-06-01 11:25 | XMS_ITS | Encounter Summary ---
Author Organization [facility] Address [address] [place] [address] Care Team Providers Care Customer Advisor Specialist Name Role Phone Andrez Krause PA-C Unavailable [phone] Heaven Brunson PA-C Primary Care Provider Brett Torres MD Unavailable [phone] Karen Galvan PA-C Unavailable [phone] Marie Lawrence [facility] Unavailable Encounter Details Date Type Department Care Team (Late st Contact Info) Description 07/03/2021 [facility] Medical Advice [facility] [address] [facility] [place] [address] Brett Torres MD [address] [place] [address] Social History Tobacco Use Types Packs/Day Years Used Date Smoking Tobacco: Never Smokeless Tobacco: Never Alcohol Use Standard Drinks/Week Comments Yes 0 (1 standard drink = 0.6 oz pur e alcohol) Social, rare PHQ-2 Answer Date Recorded PHQ-2 Score 6 07/03/2021 Comments No Sex and Gender Information Value Date Recorded Sex Assigned at Female 11/04/2018 8:36 AM SOFTWARE PROJECT LEAD Legal Sex Female 11:10 AM SOFTWARE PROJECT LEAD Gender Identity Female 11/04/2018 8:36 AM SOFTWARE PROJECT LEAD Sexual Orientation Straight 11/04/2018 8: 36 AM SOFTWARE PROJECT LEAD Occupation Industry Job Start Date Job End [...] as of this encounter Care Teams Customer Advisor Specialist Relationship Specialty Start Date End Date Heaven Brunson PA-C [facility] [address] [place] [address] PCP - General Physician Inspector Paper Products 05/30/21 Andrez Krause PA-C [address] [place] [address] Assigned PCP 09/13/15 06/20/22 Brett Torres MD [address] [place], [place] [address] Assigned Behavioral Health Provider 07/14/21 01/02/23 Karen Galvan PA-C [address] [facility] 103 [place], [place] [address] Assigned Sleep Provider 09/01/21 Marie Lawrence, [facility] [address] [facility] [address] [place] [address] Assigned MTM Pharmacist 04/05/22 documented as of this encounter
--- OUTSIDE RECORDS SUMMARY | 2025-06-01 11:25 | XMS_ITS | Encounter Summary ---
Author Organization [facility] Address [address] [place] [address] Care Team Providers Care Artisan Plasterer Name Role Phone Andrez Krause PA-C Primary Care Provider [phone] Andrez Krause PA-C Unavailable [phone] Andrez Krause PA-C Unavailable [phone] Mona Tian MD Unavailable [phone] Heaven Brunson PA-C Primary Care Provider Brett Torres MD Unavailable [phone] Karen Galvan-Subha Unavailable + [phone] Marie Lawrence [facility] Unavailable [phone] Reason for Visit * Reason Onset Date Comments Refill Request 03/23/2016 Encounter Details Date Type Department Care Team (Late st Contact Info) Description 03/23/2016 MyC Refill [address], [address] [place] [address] Andrez Krause PA-C [address] [place] [address] Refill Request Social History Tobacco Use Types Packs/Day Years Used Date Smoking Tobacco: Never Alcohol Use Standard Drinks/Week Comments Yes 0 (1 standard drink = 0.6 oz pur e alcohol) socially Comments No Sex and Gender Information Value Date Recorded Sex Assigned at Female 11/04/2018 8:36 AM DEVULCANIZER TENDER Legal Sex Female 11:10 AM DEVULCANIZER TENDER Gender Identity Female 11/04/2018 8:36 AM DEVULCANIZER TENDER Sexual Orientation Straight 11/04/2018 8: 36 AM DEVULCANIZER TENDER documented as of this encounter Miscellaneous Notes * Telephone Encounter - Una Berry - 03/26/2016 2:37 PM CDT Patient scheduled appt through [employer] for 03/31 * Telephone Encounter - Josefina Diop RN - 03/25/2016 10:53 AM CDT Per last refill PCP wants to see patient Josefina Diop RN, BSN * Telephone Encounter - Josefina Diop RN - 03/25/2016 10:52 AM CDTMessage from [employer]: Original authorizing provider: LUIS ANTONIO Molina would like a refill of the following medications: citalopram (CELEXA) 20 MG tablet [Andrez Krause PA-C] Preferred pharmacy: [id number] - [facility] [address] Comment: documented in this encounter Plan of Treatment Not on file documented as of this encounter Visit Diagnoses Diagnosis Adjustment disorder with mixed anxiety and depressed mood documented in this encounter Additional Health Concerns Assessment Noted Time PHQ-9 Depression Total Score: 21 016 9:30 AM CDT documented as of this encounter Care Teams Artisan Plasterer Relationship Specialty Start Date End Date Andrez Krause PA-C PCP - General Physician Job Training Supervisor - Medical 10/09/15 05/29/21 Andrez Krause PA-C [address] [place] [address] PCP - Assigned PCP 09/13/15 12/14/18 Heaven Brunson PA-C [facility] [address] [place] [address] PCP - General Physician Job Training Supervisor 05/30/21 Andrez Krause PA-C [address] [place] [address] Assigned PCP 09/13/15 06/20/22 Mona Tian MD [address] [place], [place] [address] Assigned OBGYN Provider 08/03/20 Brett Torres MD [address] [place] [address] Assigned Behavioral Health Provider 07/14/21 01/02/23 Karen Galvan PA-C [address] [facility] 103 [place] [address] Assigned Sleep Provider 09/01/21 Marie Lawrence, [facility] [address] [facility] 200 [place], [place] [address] Assigned MTM Pharmacist 04/05/22 documented as of this encounter
--- OUTSIDE RECORDS SUMMARY | 2025-06-01 11:25 | XMS_ITS | Encounter Summary ---
Author Organization [facility] Address [address] [place] [address]. [place] [address] Care Team Providers Care Rod Cup Filler Name Role Phone Andrez Krause PA-C Primary Care Provider [phone] Andrez Krause PA-C Unavailable [phone] Mona Tian MD Unavailable [phone] Heaven Brunson PA-C Primary Care Provider Brett Torres MD Unavailable [phone] Karen Galvan PA-C Unavailable + [phone] Marie Lawrence [facility] Unavailable [phone] Encounter Details Date Type Department Care Team (Late st Contact Info) Description 12/22/2019 MyC Medical Advice [address], [address] [place] [address] Andrez Krause PA-C [address] [place] [address] Social History Tobacco Use Types Packs/Day Years Used Date Smoking Tobacco: Never Smokeless Tobacco: Never Alcohol Use Standard Drinks/Week Comments Yes 0 (1 standard drink = 0.6 oz pur e alcohol) Social, rare PHQ-2 Answer Date Recorded PHQ-2 Score 3 02/17/2019 Comments No Sex and Gender Information Value Date Recorded Sex Assigned at Female 11/04/2018 8:36 AM DIMENSION SPECIFICATION INSPECTOR Legal Sex Female 11:10 AM DIMENSION SPECIFICATION INSPECTOR Gender Identity Female 11/04/2018 8:36 AM DIMENSION SPECIFICATION INSPECTOR Sexual Orientation Straight 11/04/2018 8: 36 AM DIMENSION SPECIFICATION INSPECTOR 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 Not on file Not o n file documented as of this encounter Plan of Treatment Not on file documented as of this encounter Visit Diagnoses Not on filedocumented in this encounter Additional Health Concerns Assessment Noted Time PHQ-9 Depression Total Score: 23 019 9:13 AM CDT documented as of this encounter Care Teams Rod Cup Filler Relationship Specialty Start Date End Date Andrez Krause PA-C PCP - General Physician Supervisor Electronics Assembly - Medical 10/09/15 05/29/21 Heaven Brunson PA-C [facility] [address] [place] [address] PCP - General Physician Supervisor Electronics Assembly 05/30/21 Andrez Krause PA-C [address] [place] [address] Assigned PCP 09/13/15 06/20/22 Mona Tian MD [address] [place] [address] Assigned OBGYN Provider 08/03/20 Brett Torres MD [address] [place] [address] Assigned Behavioral Health Provider 07/14/21 01/02/23 Karen Galvan PA-C [address] [address] Assigned Sleep Provider 09/01/21 Marie Lawrence, [facility] [address] [facility] 200 [place] [address] Assigned MTM Pharmacist 04/05/22 documented as of this encounter
--- OUTSIDE RECORDS SUMMARY | 2025-06-01 11:25 | XMS_ITS | Encounter Summary ---
Author Organization [facility] Address [address] [place] [address] Care Team Providers Care Dry Cell Assembly Machine Tender Name Role Phone Andrez Krause PA-C Unavailable [phone] Mona Tian MD Unavailable [phone] Heaven Brunson PA-C Primary Care Provider Brett Torres MD Unavailable [phone] Karen Galvan PA-C Unavailable [phone] Marie Lawrence [facility] Unavailable [phone] Encounter Details Date Type Department Care Team (Latest Contact Info) Description 06/28/2021 Historic Results Social History Tobacco Use Types Packs/Day Years Used Date Smoking Tobacco: Never Smokeless Tobacco: Never Alcohol Use Standard Drinks/Week Comments Yes 0 (1 standard drink = 0.6 oz pur e alcohol) Social, rare PHQ-2 Answer Date Recorded PHQ-2 Score 6 06/28/2021 Comments No Sex and Gender Information Value Date Recorded Sex Assigned at Female 11/04/2018 8:36 AM BUSINESS ANALYST MANAGER Legal Sex Female 11:10 AM BUSINESS ANALYST MANAGER Gender Identity Female 11/04/2018 8:36 AM BUSINESS ANALYST MANAGER Sexual Orientation Straight 11/04/2018 8: 36 AM BUSINESS ANALYST MANAGER 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 Not on file Not o n file documented as of this encounter Plan of Treatment Not on file documented as of this encounter Visit Diagnoses Not on filedocumented in this encounter Additional Health Concerns Assessment Noted Time PHQ-9 Depression Total Score: 23 06/28/ 021 9:44 AM CDT documented as of this encounter Care Teams Dry Cell Assembly Machine Tender Relationship Specialty Start Date End Date Heaven Brunson PA-C [facility] [address] [place] [address] PCP - General Physician Center Machine Set Up Operator 05/30/21 Andrez Krause PA-C [address] [place] [address] Assigned PCP 09/13/15 06/20/22 Mona Tian MD [address] [place], [place] [address] Assigned OBGYN Provider 08/03/20 Brett Torres MD [address] [place] [address]60[address] Assigned Behavioral Health Provider 07/14/21 01/02/23 Karen Galvan PA-C 6[address] [facility] 103 [place], [place] [address] Assigned Sleep Provider 09/01/21 Marie Lawrence [facility] [address] [place] [address] [place], [place] [address] Assigned MTM Pharmacist 04/05/22 documented as of this encounter
--- OUTSIDE RECORDS SUMMARY | 2025-06-01 11:25 | XMS_ITS | Encounter Summary ---
Author Organization [facility] Address [address] [place] [address] Care Team Providers Care Insulation Estimator Name Role Phone Andrez Krause PA-C Primary Care Provider [phone] Andrez Krause PA-C Unavailable [phone] Andrez Krause-C Unavailable [phone] Mona Tian MD Unavailable [phone] Heaven Brunson-C Primary Care Provider Brett Torres MD Unavailable [phone] Karen Galvan PA-C Unavailable + [phone] Marie Lawrence [facility] Unavailable [phone] Encounter Details Date Type Department Care Team (Late st Contact Info) Description 12/11/2018 MyC Medical Advice [facility] [address] [place] [address] Josefina Diop, X RAY INSPECTOR [facility] [place] [address] [place] [address] [address] [place] [address] Social History Tobacco Use Types Packs/Day Years Used Date Smoking Tobacco: Never Smokeless Tobacco: Never Alcohol Use Standard Drinks/Week Comments Yes 0 (1 standard drink = 0.6 oz pur e alcohol) Social, rare PHQ-2 Answer Date Recorded PHQ-2 Score 6 10/19/2018 Comments No Sex and Gender Information Value Date Recorded Sex Assigned at Female 11/04/2018 8:36 AM ADMISSIONS ADVISOR Legal Sex Female 11:10 AM ADMISSIONS ADVISOR Gender Identity Female 11/04/2018 8:36 AM ADMISSIONS ADVISOR Sexual Orientation Straight 11/04/2018 8: 36 AM ADMISSIONS ADVISOR 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 file Not on file Not on file documented as of this encounter Plan of Treatment Not on file documented as of this encounter Visit Diagnoses Not on filedocumented in this encounter Additional Health Concerns Assessment Noted Time PHQ-9 Depression Total Score: 21 019 5:05 PM ADMISSIONS ADVISOR documented as of this encounter Care Teams Insulation Estimator Relationship Specialty Start Date End Date Andrez Krause PA-C PCP - General Physician Cardboard Inserter - Medical 10/09/15 05/29/21 Andrez Krause PA-C [address] [place] [address] PCP - Assigned PCP 09/13/15 12/14/18 Heaven Brunson PA-C [facility] [address] [place] [address] PCP - General Physician Cardboard Inserter 05/30/21 Andrez Krause PA-C [address] [place] [address] Assigned PCP 09/13/15 06/20/22 Mona Tian MD [address] [place], [place] [address] Assigned OBGYN Provider 08/03/20 Brett Torres MD [address] [place] [address] Assigned Behavioral Health Provider 07/14/21 01/02/23 Karen Galvan PA-C [address] [facility] 103 [place] [address] Assigned Sleep Provider 09/01/21 Marie Lawrence, [facility] [address] [facility] 200 [place], [place] [address] Assigned MTM Pharmacist 04/05/22 documented as of this encounter
--- OUTSIDE RECORDS SUMMARY | 2025-06-01 11:25 | XMS_ITS | Encounter Summary ---
Author Organization [facility] Address [address] [place] [address] Care Team Providers Care Roll Dough Divider Name Role Phone Andrez Krause PA-C Primary Care Provider [phone] Andrez Krause PA-C Unavailable [phone] Andrez Krause PA-C Unavailable [phone] Mona Tian MD Unavailable [phone] Heaven Brunson PA-C Primary Care Provider Brett Torres MD Unavailable [phone] Karen Galvan PA-C Unavailable + [phone] Marie Lawrence [facility] Unavailable [phone] Encounter Details Date Type Department Care Team (Latest Contact Info) Description 02/19/2017 Historic Results Social History Tobacco Use Types Packs/Day Years Used Date Smoking Tobacco: Never Smokeless Tobacco: Never Alcohol Use Standard Drinks/Week Comments Yes 0 (1 standard drink = 0.6 oz pur e alcohol) socially Comments No Sex and Gender Information Value Date Recorded Sex Assigned at Female 11/04/2018 8:36 AM FRUIT OR NUT PICKER Legal Sex Female 11:10 AM FRUIT OR NUT PICKER Gender Identity Female 11/04/2018 8:36 AM FRUIT OR NUT PICKER Sexual Orientation Straight 11/04/2018 8: 36 AM FRUIT OR NUT PICKER 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 Not on file Not on file documented as of this encounter Plan of Treatment Not on file documented as of this encounter Visit Diagnoses Not on filedocumented in this encounter Additional Health Concerns Assessment Noted Time PHQ-9 Depression Total Score: 11 017 7:20 AM CDT documented as of this encounter Care Teams Roll Dough Divider Relationship Specialty Start Date End Date Andrez Krause PA-C PCP - General Physician Third Rigger - Medical 10/09/15 05/29/21 Andrez Krause PA-C [address] [place] [address] PCP - Assigned PCP 09/13/15 12/14/18 Heaven Brunson PA-C [facility] [address] [place] [address] PCP - General Physician Third Rigger 05/30/21 Andrez Krause PA-C [address] [place] [address] Assigned PCP 09/13/15 06/20/22 Mona Tian MD [address] [place] [address] Assigned OBGYN Provider 08/03/20 Brett Torres MD [address] [place] [address]3064 Assigned Behavioral Health Provider 07/14/21 01/02/23 Karen Galvan PA-C 6363 [facility] 103 [place], [place] [address] Assigned Sleep Provider 09/01/21 Marie Lawrence, [facility] [address] [address] Assigned MTM Pharmacist 04/05/22 documented as of this encounter
--- OUTSIDE RECORDS SUMMARY | 2025-06-01 11:25 | XMS_ITS | Encounter Summary ---
Author Organization [facility] Address [address] [place] [address] Care Team Providers Care Visual Artist Name Role Phone Andrez Krause PA-C Primary Care Provider [phone] Andrez Krause PA-C Unavailable [phone] Mona Tian MD Unavailable [phone] Heaven Brunson PA-C Primary Care Provider Brett Torres MD Unavailable [phone] Karen Galvan PA-C Unavailable + [phone] Marie Lawrence [facility] Unavailable [phone] Reason for Visit * Reason Onset Date Comments Refill Request 01/10/2019 Emgality Encounter Details Date Type Department Care Team (Late st Contact Info) Description 01/10/2019 MyC Medical Advice [address], [address] [place] [address] Andrez Krause PA-C [address] [place] [address] Refill Request (Emgality) Social History Tobacco Use Types Packs/Day Years Used Date Smoking Tobacco: Never Smokeless Tobacco: Never Alcohol Use Standard Drinks/Week Comments Yes 0 (1 standard drink = 0.6 oz pur e alcohol) Social, rare PHQ-2 Answer Date Recorded PHQ-2 Score 6 10/19/2018 Comments No Sex and Gender Information Value Date Recorded Sex Assigned at Female 11/04/2018 8:36 AM LEATHER GOODS I ASSEMBLER Legal Sex Female 11:10 AM LEATHER GOODS I ASSEMBLER Gender Identity Female 11/04/2018 8:36 AM LEATHER GOODS I ASSEMBLER Sexual Orientation Straight 11/04/2018 8: 36 AM LEATHER GOODS I ASSEMBLER Occupation Industry Job Start Date Job End [...] (EMGALITY) 120 MG/ML injection Class: E-Prescribe Order: [id number] E-Prescribing Status: Receipt confirmed by pharmacy (12/16/2018 12:57 PM LEATHER GOODS I ASSEMBLER) Last OV 2.14.19 for migraine, received Toradol inj and prednisone Andrez Krause PA-C Physician Biology Faculty Member Signed Creation Time: 12/16/2018 12:56 PM OK, first dose is to do 240mg followed by 120mg monthly after that. I'll do the first Rx now. ?? Thanks! Nalini Bunn, RN Registered Nurse Signed Creation Time: 12/16/2018 12:06 PM Please approve rx for EMGALITY as patient is willing to give it a try. She will flower buncher or picker the card to you have provider for the 12 month free. ?? Nalini Conte RN for pt to schedule appt with provider to review medication Geraldine Chavarria RN, BS Clinical Nurse Triage. * Telephone Encounter - Jeanne Phillips MD - 01/10/2019 9:35 AM CDT She has not see the provider for this rx. She ordered via [employer] about 1 month ago. She is [facility] for recheck and refills. Thank you * Telephone Encounter - Nalini Conte RN - 01/10/2019 8:52 AM CDT Emgality 120mg/ml Last Written Prescription Date: 12/16/2018 Last Fill Quantity: 2ml, # refills: 0 Last Office Visit: 11/25/2018 Future Office visit: Routing refill request to provider for review/approval because: Drug not on the [facility], P or [facility] refill protocol or controlled substance Nalini [...] Depression Total Score: 21 019 5:05 PM LEATHER GOODS I ASSEMBLER documented as of this encounter Care Teams Visual Artist Relationship Specialty Start Date End Date Andrez Krause PA-C PCP - General Physician Biology Faculty Member - Medical 10/09/15 05/29/21 Heaven Brunson PA-C [facility] [address] [place] [address] PCP - General Physician Biology Faculty Member 05/30/21 Andrez Krause PA-C [address] [place] [address] Assigned PCP 09/13/15 06/20/22 Mona Tian MD [address] [place] [address] Assigned OBGYN Provider 08/03/20 Brett Torres MD [address] [place] [address] Assigned Behavioral Health Provider 07/14/21 01/02/23 Karen Galvan PA-C [address] [facility] 103 [place], [place] [address] Assigned Sleep Provider 09/01/21 Marie Lawrence, [facility] 57[address] [facility] 200 [place], [place] [address] Assigned MTM Pharmacist 04/05/22 documented as of this encounter
--- OUTSIDE RECORDS SUMMARY | 2025-06-01 11:26 | XMS_ITS | Encounter Summary ---
Author Organization [facility] Address [address] [place] [address] Care Team Providers Care Vice President Of Instruction Name Role Phone Andrez Krause PA-C Primary Care Provider [phone] Andrez Krause PA-C Unavailable [phone] Andrez Krause PA-C Unavailable [phone] Mona Tian MD Unavailable [phone] Heaven Brunson PA-C Primary Care Provider Brett Torres MD Unavailable [phone] Karen Galvan-Subha Unavailable + [phone] Marie Lawrence [facility] Unavailable [phone] Reason for Visit * Reason Onset Date Comments Refill Request 07/01/2017 Methylphenidate Encounter Details Date Type Department Care Team (Late st Contact Info) Description 07/01/2017 [facility] Medical Advice [address], [address] [place] [address] Andrez Krause PA-C [address] [place] [address] Refill Request (Methylphenidate) Social History Tobacco Use Types Packs/Day Years Used Date Smoking Tobacco: Never Smokeless Tobacco: Never Alcohol Use Standard Drinks/Week Comments Yes 0 (1 standard drink = 0.6 oz pur e alcohol) socially Comments No Sex and Gender Information Value Date Recorded Sex Assigned at Female 11/04/2018 8:36 AM DIRECTOR AUDIENCE MARKETING Legal Sex Female 11:10 AM DIRECTOR AUDIENCE MARKETING Gender Identity Female 11/04/2018 8:36 AM DIRECTOR AUDIENCE MARKETING Sexual Orientation Straight 11/04/2018 8: 36 AM DIRECTOR AUDIENCE MARKETING 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 DRYWALL METAL STUD WORKER checked 07/01/2017: 05/19/2017 GABAPENTIN 300 MG [...] documented as of this encounter Care Teams Vice President Of Instruction Relationship Specialty Start Date End Date Andrez Krause PA-C PCP - General Physician Domestic Technician - Medical 10/09/15 05/29/21 Andrez Krause PA-C [address] [facility] [place] [address] PCP - Assigned PCP 09/13/15 12/14/18 Heaven Brunson PA-C [facility] [address] [place] [address] PCP - General Physician Domestic Technician 05/30/21 Andrez Krause PA-C [address] [facility] [place] [address] Assigned PCP 09/13/15 06/20/22 Mona Tian MD [address] [place] [address] Assigned OBGYN Provider 08/03/20 Brett Torres MD [address] [place] [address] Assigned Behavioral Health Provider 07/14/21 01/02/23 Karen Galvan PA-C 6363 [facility] 103 [place] [address] Assigned Sleep Provider 09/01/21 Marie Lawrence, [facility] [address] [facility] 200 [place], [place] [address] Assigned MTM Pharmacist 04/05/22 documented as of this encounter
--- OUTSIDE RECORDS SUMMARY | 2025-06-01 11:26 | XMS_ITS | Encounter Summary ---
Author Organization [place] Address [address] [place] [address] Care Team Providers Care Clinical Support Nurse Name Role Phone Andrez Krause PA-C Primary Care Provider [phone] Andrez Krause PA-C Unavailable [phone] Andrez KrauseC Unavailable [phone] Mona Tian MD Unavailable +[phone] Heaven BrunsonC Primary Care Provider Brett Torres MD Unavailable +[phone] Karen Galvan-C Unavailable + [phone] Marie Lawrence [facility] Unavailable +[phone] Encounter Details Date Type Department Care Team (Late st Contact Info) Description 10/28/2017 MyC Medical Advice [address], [address] [place] [address] Marnie Mabry MA Social History Tobacco Use Types Packs/Day Years Used Date Smoking Tobacco: Never Smokeless Tobacco: Never Alcohol Use Standard Drinks/Week Comments Yes 0 (1 standard drink = 0.6 oz pur e alcohol) socially Comments No Sex and Gender Information Value Date Recorded Sex Assigned at Female 11/04/2018 8:36 AM UTILITY INSPECTOR Legal Sex Female 11:10 AM UTILITY INSPECTOR Gender Identity Female 11/04/2018 8:36 AM UTILITY INSPECTOR Sexual Orientation Straight 11/04/2018 8: 36 AM UTILITY INSPECTOR 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 Not on file Not on file documented as of this encounter Plan of Treatment Not on file documented as of this encounter Visit Diagnoses Not on filedocumented in this encounter Additional Health Concerns Assessment Noted Time PHQ-9 Depression Total Score: 018 1:03 PM UTILITY INSPECTOR documented as of this encounter Care Teams Clinical Support Nurse Relationship Specialty Start Date End Date Andrez Krause PA-C PCP - General Physician Conservation Agent - Medical 10/09/15 05/29/21 Andrez Krause PA-C [address] [place] [address] PCP - Assigned PCP 09/13/15 12/14/18 Heaven Brunson PA-C [facility] [address] [place] [address] PCP - General Physician Conservation Agent 05/30/21 Andrez Krause PA-C [address] [place] [address] Assigned PCP 09/13/15 06/20/22 Mona Tian MD [address] [place] [address] Assigned OBGYN Provider 08/03/20 Brett Torres MD [address] [place], [place] [address] Assigned Behavioral Health Provider 07/14/21 01/02/23 Karen Galvan PA-C [address] 187405 Assigned Sleep Provider 09/01/21 Marie Lawrence, [facility] [address] [address] Assigned MTM Pharmacist 04/05/22 documented as of this encounter
--- OUTSIDE RECORDS SUMMARY | 2025-06-01 11:26 | XMS_ITS | Encounter Summary ---
Author Organization [place] Address [address] [place] [address] Care Team Providers Care Final Operations Technician Name Role Phone Andrez Krause PA-C Primary Care Provider [phone] Andrez Krause PA-C Unavailable [phone] Andrez Krause PA-C Unavailable [phone] Mona Tian MD Unavailable +[phone] Heaven Brunson PA-C Primary Care Provider Brett Torres MD Unavailable +[phone] Karen Galvan-Subha Unavailable + [phone] Marie Lawrence [facility] Unavailable +[phone] Encounter Details Date Type Department Care Team (Late st Contact Info) Description 04/03/2018 [facility] [place] [address] [address] Geraldine Chavarria, RN Social History Tobacco Use Types Packs/Day Years Used Date Smoking Tobacco: Never Smokeless Tobacco: Never Alcohol Use Standard Drinks/Week Comments Yes 0 (1 standard drink = 0.6 oz pur e alcohol) socially Comments No Sex and Gender Information Value Date Recorded Sex Assigned at Female 11/04/2018 8:36 AM TECHNICAL SALES SPECIALIST Legal Sex Female 11:10 AM TECHNICAL SALES SPECIALIST Gender Identity Female 11/04/2018 8:36 AM TECHNICAL SALES SPECIALIST Sexual Orientation Straight 11/04/2018 8: 36 AM TECHNICAL SALES SPECIALIST 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 Not on file Not on file documented as of this encounter Plan of Treatment Not on file documented as of this encounter Visit Diagnoses Not on filedocumented in this encounter Additional Health Concerns Assessment Noted Time PHQ-9 Depression Total Score: 23 04/10/ 018 7:00 AM CDT documented as of this encounter Care Teams Final Operations Technician Relationship Specialty Start Date End Date Andrez Krause PA-C PCP - General Physician Combination Worker - Medical 10/09/15 05/29/21 Andrez Krause PA-C [address] [place] [address] PCP - Assigned PCP 09/13/15 12/14/18 Heaven Brunson PA-C [facility] [address] [place] [address] PCP - General Physician Combination Worker 05/30/21 Andrez Krause PA-C [address] [place] [address] Assigned PCP 09/13/15 06/20/22 Mona Tian MD [address] [place], [place] [address] Assigned OBGYN Provider 08/03/20 Brett Torres MD [address] [place] [address] 252704 Assigned Behavioral Health Provider 07/14/21 01/02/23 Karen Galvan PA-C [address] [address] Assigned Sleep Provider 09/01/21 Marie Lawrence, [facility] 57[address] [facility] [address] [place] [address] Assigned MTM Pharmacist 04/05/22 documented as of this encounter
--- OUTSIDE RECORDS SUMMARY | 2025-06-01 11:26 | XMS_ITS | Encounter Summary ---
Author Organization [place] Address [address] [place] [address] Care Team Providers Care Infection Prevention Practitioner Name Role Phone Andrez Krause PA-C Primary Care Provider [phone] Andrez Krause PA-C Unavailable [phone] Andrez Krause PA-C Unavailable [phone] Mona Tian MD Unavailable [phone] Heaven Brunson PA-C Primary Care Provider Brett Torres MD Unavailable [phone] Karen Galvan-Subha Unavailable + [phone] Marie Lawrence [facility] Unavailable +[phone] Reason for Visit * Reason Onset Date Comments Refill Request 01/02/2016 Imitrex Encounter Details Date Type Department Care Team (Late st Contact Info) Description 01/02/2016 MyC Refill [address], [address] [place] [address] Andrez Krause PA-C [address] [place] [address] Refill Request (Imitrex) Social History Tobacco Use Types Packs/Day Years Used Date Smoking Tobacco: Never Alcohol Use Standard Drinks/Week Comments Yes 0 (1 standard drink = 0.6 oz pur e alcohol) Comments No Sex and Gender Information Value Date Recorded Sex Assigned at Female 11/04/2018 8:36 AM ANIMAL SHELTER CLERK Legal Sex Female 11:10 AM ANIMAL SHELTER CLERK Gender Identity Female 11/04/2018 8:36 AM ANIMAL SHELTER CLERK Sexual Orientation Straight 11/04/2018 8: 36 AM ANIMAL SHELTER CLERK documented as of this encounter Miscellaneous [...] # refills: 1 Last Office Visit with [facility] or [facility] prescribing provider: 11/23/2015 Next 5 appointments (look out 90 days) Jan 08, 2016 4:30 PM Anastasiya Long with Andrez Krause PA-C [facility] [id number] [place] [address] BP Readings from Last 3 Encounters: [...] MG tablet [Andrez Krause PA-C] Preferred pharmacy: [id number] [address] [facility] Comment: documented in this encounter Plan of [...] of this encounter Care Teams Infection Prevention Practitioner Relationship Specialty Start Date End Date Andrez Krause PA-C PCP - General Physician Stone Layer - Medical 10/09/15 05/29/21 Andrez Krause PA-C [address] [place] [address] PCP - Assigned PCP 09/13/15 12/14/18 Heaven Brunson PA-C [facility] [address] [place] [address] PCP - General Physician Stone Layer 05/30/21 Andrez Krause PA-C [address] [place] [address] Assigned PCP 09/13/15 06/20/22 Mona Tian MD [address] [place], [place] 985417 Assigned OBGYN Provider 08/03/20 Brett Torres MD [address] [place], [place] [address] Assigned Behavioral Health Provider 07/14/21 01/02/23 Karen Galvan PA-C [address] 946855 Assigned Sleep Provider 09/01/21 Marie Lawrence, [facility] [address] [id number] Assigned MTM Pharmacist 04/05/22 documented as of this encounter
--- OUTSIDE RECORDS SUMMARY | 2025-06-01 11:26 | XMS_ITS | Encounter Summary ---
Author Organization [place] Address [address] [place] [address] Care Team Providers Care Adapted Physical Education Aide Name Role Phone Andrez Krause PA-C Primary Care Provider [phone] Andrez Krause PA-C Unavailable [phone] Andrez Krause PA-C Unavailable [phone] Mona Tian MD Unavailable [phone] Heaven Brunson PA-C Primary Care Provider Brett Torres MD Unavailable [phone] Karen Galvan PA-C Unavailable + [phone] Marie Lawrence [facility] Unavailable [phone] Reason for Visit * Reason Onset Date Comments Infection 03/03/2016 Tonsil Encounter Details Date Type Department Care Team (Late st Contact Info) Description 03/03/2016 MyC Medical Advice [address], [address] [place] [address] Andrez Krause PA-C [address] [place] [address] Infection (Tonsil) Social History Tobacco Use Types Packs/Day Years Used Date Smoking Tobacco: Never Alcohol Use Standard Drinks/Week Comments Yes 0 (1 standard drink = 0.6 oz pur e alcohol) socially Comments No Sex and Gender Information Value Date Recorded Sex Assigned at Female 11/04/2018 8:36 AM SAP SENIOR DEVELOPER Legal Sex Female 11:10 AM SAP SENIOR DEVELOPER Gender Identity Female 11/04/2018 8:36 AM SAP SENIOR DEVELOPER Sexual Orientation Straight 11/04/2018 8: 36 AM SAP SENIOR DEVELOPER documented as of this encounter Plan of Treatment Not on file documented as of this encounter Visit Diagnoses Not on filedocumented in this encounter Additional Health Concerns Assessment Noted Time PHQ-9 Depression Total Score: 21 016 9:30 AM CDT documented as of this encounter Care Teams Adapted Physical Education Aide Relationship Specialty Start Date End Date Andrez Krause PA-C PCP - General Physician Dicer Operator - Medical 10/09/15 05/29/21 Andrez Krause PA-C [address] [place] [address] PCP - Assigned PCP 09/13/15 12/14/18 Heaven Brunson PA-C [facility] [address] [place] [address] PCP - General Physician Dicer Operator 05/30/21 Andrez Krause PA-C [address] [place] [address] Assigned PCP 09/13/15 06/20/22 Mona Tian MD [address] [place], [place] 7[address] Assigned OBGYN Provider 08/03/20 Brett Torres MD [address] [place] [address] 998714 Assigned Behavioral Health Provider 07/14/21 01/02/23 Karen Galvan PA-C [address] [place] [address] Assigned Sleep Provider 09/01/21 Marie Lawrence, [facility] 5775 [facility] 200 [place], [place] [address] Assigned MTM Pharmacist 04/05/22 documented as of this encounter
--- OUTSIDE RECORDS SUMMARY | 2025-06-01 11:26 | XMS_ITS | Encounter Summary ---
Author Organization [place] Address [address] [place] [address] Care Team Providers Care Radio Time Buyer Name Role Phone Andrez Krause PA-C Primary Care Provider [phone] Andrez Krause PA-C Unavailable [phone] Mona Tian MD Unavailable [phone] Heaven Brunson PA-C Primary Care Provider Brett Torres MD Unavailable [phone] Karen Galvan PA-C Unavailable + [phone] Marie Lawrence [facility] Unavailable +[phone] Encounter Details Date Type Department Care Team (Late st Contact Info) Description 07/13/2020 [facility] [address] [place] [address] [facility] Social History Tobacco Use Types Packs/Day Years Used Date Smoking Tobacco: Never Smokeless Tobacco: Never Alcohol Use Standard Drinks/Week Comments Yes 0 (1 standard drink = 0.6 oz pur e alcohol) Social, rare PHQ-2 Answer Date Recorded PHQ-2 Score 3 02/17/2019 Comments No Sex and Gender Information Value Date Recorded Sex Assigned at Female 11/04/2018 8:36 AM FILENET ARCHITECT Legal Sex Female 11:10 AM FILENET ARCHITECT Gender Identity Female 11/04/2018 8:36 AM FILENET ARCHITECT Sexual Orientation Straight 11/04/2018 8: 36 AM FILENET ARCHITECT 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 [address] [place] [address] PCP - General Physician Horse Doctor 05/30/21 Andrez Krause PA-C [address] [place] [address] Assigned PCP 09/13/15 06/20/22 Mona Tian MD [address] [place], [place] [address] Assigned OBGYN Provider 08/03/20 Brett Torres MD [address] [place], [place] [address]30[address] Assigned Behavioral Health Provider 07/14/21 01/02/23 Karen Galvan PA-C 6363 [facility] [address] [place], [place] 2[address] Assigned Sleep Provider 09/01/21 Marie Lawrence, [facility] 5775 [facility] 200 [place], [place] [address] Assigned MTM Pharmacist 04/05/22 documented as of this encounter
--- OUTSIDE RECORDS SUMMARY | 2025-06-01 11:26 | XMS_ITS | Encounter Summary ---
Author Organization [place] Address [address] [place] [address] Care Team Providers Care Supervisor Keymodule Assembly Name Role Phone Andrez Krause PA-C Primary Care Provider [phone] Andrez Krause PA-C Unavailable [phone] Andrez Krause PA-C Unavailable [phone] Mona Tian MD Unavailable [phone] Heaven BrunsonC Primary Care Provider Brett Torres MD Unavailable [phone] Karen Galvan-C Unavailable + [phone] Marie Lawrence [facility] Unavailable [phone] Reason for Visit * Reason Onset Date Comments Refill Request 12/11/2015 Zoloft, Imitrex Encounter Details Date Type Department Care Team (Late st Contact Info) Description 12/11/2015 MyC Refill [address], [address] [place] [address] Andrez Krause PA-C [address] [place] [address] Refill Request (Zoloft, Imitrex) Social History Tobacco Use Types Packs/Day Years Used Date Smoking Tobacco: Never Alcohol Use Standard Drinks/Week Comments Yes 0 (1 standard drink = 0.6 oz pur e alcohol) Comments No Sex and Gender Information Value Date Recorded Sex Assigned at Female 11/04/2018 8:36 AM PIN BALL MACHINE MECHANIC Legal Sex Female 11:10 AM PIN BALL MACHINE MECHANIC Gender Identity Female 11/04/2018 8:36 AM PIN BALL MACHINE MECHANIC Sexual Orientation Straight 11/04/2018 8: 36 AM PIN BALL MACHINE MECHANIC documented as of this encounter Miscellaneous Notes * Telephone Encounter - Nalini Conte RN - 12/11/2015 10:43 AM CST Rx's already filled 11/23/2015 at [facility]. Nalini Conte RN BALL MACHINE MECHANIC * Telephone Encounter - Nalini Conte RN - 12/11/2015 10:43 AM CSTMessage from MyChart: Original authorizing provider: LUIS ANTONIO Molina would like a refill of the following medications: sertraline (ZOLOFT) 50 MG tablet [Andrez Krause PA-C] SUMAtriptan (IMITREX) 100 MG tablet [Andrez Krause PA-C] Preferred pharmacy: [id number] - [place], [place] - [address] Comment: BALL MACHINE MECHANIC documented in this encounter Plan of [...] Total Score: 7 11/24/19 16 8:21 AM PIN BALL MACHINE MECHANIC documented as of this encounter Care Teams Supervisor Keymodule Assembly Relationship Specialty Start Date End Date Andrez Krause PA-C PCP - General Physician Junior Electrical Engineer - Medical 10/09/15 05/29/21 Andrez Krause [place] [address] [place] [address] PCP - Assigned PCP 09/13/15 12/14/18 Heaven Brunson PA-C [facility] [address] [place] [address] PCP - General Physician Junior Electrical Engineer 05/30/21 Andrez Krause PA-C [address] [place] [address] Assigned PCP 09/13/15 06/20/22 Mona Tian MD [address] [place], [place] [address] Assigned OBGYN Provider 08/03/20 Brett Torres MD [address] [place], [place] [address] Assigned Behavioral Health Provider 07/14/21 01/02/23 Karen Galvan PA-C 6363 [facility] [address] [place], [place] [address] Assigned Sleep Provider 09/01/21 Marie Lawrence, [facility] 5775 [facility] [address] [place], [place] [address] Assigned MTM Pharmacist 04/05/22 documented as of this encounter
--- OUTSIDE RECORDS SUMMARY | 2025-06-01 11:26 | XMS_ITS | Clinical Summary ---
Author Organization [place] Address [address] [place] [address] Care Team Providers Care Hydrologic Engineer Name Role Phone Heaven Brunson PA-C Primary Care Provider Allergies No known active allergies Medications * This document contains information received from the source organization and may not represent a complete record from that organization. rizatriptan (MAXALT-UROLOGY SURGEON) 5 MG ODTIndications:M igraine without aura and without status migrainosus, not intractable Take 10 mg by mouth at onset of headache 0 9 Active ubrogepant (UBRELVY) 50 MG tabletIndication s:Migraine without aura and without status migrainosus, not intractable Take 1 tablet (50 mg) by mouth at onset of headache 2 tablet 1 0 Active Additional Information Patient not taking.Reported on 06/28/2021 desogestrel-ethi nyl estradiol (VIORELE) 0.15-0.02/0.01 MG (21/5) tablet Viorele (28) 0.15 mg-0.02 mg (21)/0.01 mg (5) tablet TAKE 1 TABLET BY MOUTH DAILY Active UBRELVY 100 MG tablet TK 1 T PO AT ONSET OF HEADACHE. CAN REPEAT ONCE IN 2 HOURS PRN 0 Active NURTEC 75 MG TBDP Take 1 tablet at onset of headache 1 Active QUETIAPINE FUMARATE ER PO Take 25 mg by mouth daily 1 Active MELATONIN PO Active Active Problems Problem Noted Date Diagnosed [...] with negative high risk HPV 11/20/2016 08/06/2018 Overview (08/06/2018): 11/20/16 ASCUS, Neg HPV, 21 yrs old. Plan for pap cyto only (no HPV) in 12 months, due 11/201707/27/18 NIL, Neg HPV. Routine screening Adjustment disorder with mix ed anxiety and depressed mood 10/10/2015 06/23/2016 Immunizations Immunization Administration Dates Next Due COVID-19 Vaccine (Vivek) 02/25/2021 DTAP (<7y) 03/28/1998 DTP-Hib 05/14/1994,1993,1993 ,1993 Flu, Unspecified 08/27/2010 HEPA 04/24/2010 HPV 02/12/2007 HPV Quadrivalent 09/20/2007,05/19/2007 Influenza (H1N1) 10/17/2009 Influenza Intranasal Vaccine 08/27/2010 MMR (MMRII) 06/21/1997,02/13/1994 Meningococcal ACWY (Menveo ) 04/24/2010 TD,PF 7+ (Tenivac) 02/07/2021,02/12/2005 TDAP (Adacel,Boostrix) [...] School Help Needed Not on file 07/03 Comments No Sex and Gender Information Value Date Recorded Sex Assigned at Female 11/04/2018 8:36 AM LOOM OVERHAULER Legal Sex Female 11:10 AM LOOM OVERHAULER Gender Identity Female 11/04/2018 8:36 AM LOOM OVERHAULER Sexual Orientation Straight 11/04/2018 8: 36 AM LOOM OVERHAULER 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 Not on file Not o n file Last Filed Vital Signs Vital Sign Reading Time Taken Comments Blood Pressure 132/83 07/03/2021 12:55 PM CDT Pulse 91 07/03/2021 12:55 PM CDT Temperature 36.4 C (97.6 F) 07/03/2021 12:55 PM CDT Respiratory Rate 15 10/30/2019 9:30 PM LOOM OVERHAULER Oxygen Saturation 99% 10/30/2019 10:45 PM LOOM OVERHAULER Inhaled Oxygen Concentration - - Weight 112 [...] PREVENTIVE VISIT 07/27/2019 07/27/20 18, 11/20/2016, 10/09/2015 PHQ-9 12/31/2021 07/03/2021, 06/12, 06/05/2021, Additional history exists COVID-19 VACCINE ( season) 2024 02/25/2021 PAP 10/21/2024 10/21/2021, 07/12, 11/20/2016, Additional history exists INFLUENZA VACCINE (#1) 2025 9 (Declined), 08/27/2010, 08/27/2010, Additional history exists DTAP/TDAP/TD VACCINE (9 - Td or Tdap) 02/07/2031 02/07/2021, 02/07/2021, 01/03/2011, Additional history exists ZOSTER VACCINE (1 of 2) 2043 HEPATITIS B VACCINE Completed 1993, 1993, 1993 HPV VACCINE Completed 09/20/2007, 05/2007, 02/12/2007 MENINGITIS VACCINE Completed 04/24/2010 MIGRAINE ACTION PLAN Completed 10/10/2015 DEPRESSION ACTION PLAN Completed , 07/27/2018, 07/06/2017, Additional history exists PNEUMOCOCCAL VACCINE: PEDIATRICS (0 to 5 YEARS) AND AT-RISK PATIENTS (6 to 49 YEARS) Aged Out No longer eligible based on [...] PHQ9 SCORE 18 Genesis Nina - 05/16/2019 [facility] VISIT NOTE us Provider Outside OTHER Final Result * Pap imaged thin layer diagnostic with HPV (select HPV order below) (07/27/2018 6:32 PM CDT) PAP TYSHAWN Silva Report Patient Name: CHRISTI FUCHS MR#: [id number] Specimen #: [id number] Collected: 07/27/2018 Received: 07/29/2018 Reported: 07/30/2018 13:12 Ordering Phy(s): ANDREZ AUGUSTIN For improved result formatting, select 'View Enhanced Report Format' under Linked Documents section. SPECIMEN/STAIN PROCESS: Pap Imaged thin layer prep diagnostic (SurePath, FocalPoint with guided screening) Pap-Cyto x 1, HPV ordered x 1 SOURCE: Cervical, endocervical Pap Imaged thin layer prep diagnostic (SurePath, FocalPoint with guided screening) SPECIMEN ADEQUACY: Satisfactory for evaluation. -Transformation zone component present. CYTOLOGIC INTERPRETATION: Negative for intraepithelial lesion or malignancy Electronically signed out by: CIERA Larsen (ASCP) Processed and screened at [facility] CLINICAL HISTORY: Currently not having periods, Intra-Uterine Device, Previous ASC-US Date of Last Pap: 11/20/2016, Papanicolaou Test Limitations: Cervical cytology is a screening test with limited sensitivity; regular screening is critical for cancer prevention; Pap tests are primarily effective for the diagnosis/preventi on of squamous cell carcinoma, not adenocarcinomas or other cancers. TESTING LAB LOCATION: [facility] [address] [place] [address] COLLECTION SITE: Client: [facility] Location: [facility] (R) COPATH Cytologic material (specimen) 07/27/2018 6:32 PM CDT 07/29/2018 10:09 AM CDT Andrez Augustin PA-C LAB - OPT[facility] CLINICAL SPECI MEN Final Result COPATH from Last 3 Months or Most Recently Relevant to Health Maintenance Insurance BS INDIVIDUAL [facility] INDIVIDUAL [facility] INDIVIDUAL Care Teams Hydrologic Engineer Relationship Specialty Start Date End Date Heaven Brunson PA-C [facility] [address] [place] [address] PCP - General Physician Metal Tank Erector 05/30/21
--- OUTSIDE RECORDS SUMMARY | 2025-06-01 11:26 | XMS_ITS | Encounter Summary ---
Author Organization [place] Address [address] [place] [address]. [place] [address] Care Team Providers Care Creative Services Specialist Name Role Phone Andrez Krause PA-C Primary Care Provider [phone] Andrez Krause PA-C Unavailable [phone] Andrez Krause PA-C Unavailable [phone] Mona Tian MD Unavailable [phone] Heaven Brunson PA-C Primary Care Provider Brett Torres MD Unavailable [phone] Karen Galvan-Subha Unavailable + [phone] Marie Lawrence [facility] Unavailable +[phone] Reason for Visit * Reason Onset Date Comments Refill Request 11/19/2017 Imitrex tablets Encounter Details Date Type Department Care Team (Late st Contact Info) Description 11/19/2017 My[facility] Medical Advice [address], [address] [place] [address] Andrez Krause PA-C [address] [place] [address] Refill Request (Imitrex tablets) Social History Tobacco Use Types Packs/Day Years Used Date Smoking Tobacco: Never Smokeless Tobacco: Never Alcohol Use Standard Drinks/Week Comments Yes 0 (1 standard drink = 0.6 oz pur e alcohol) socially Comments No Sex and Gender Information Value Date Recorded Sex Assigned at Female 11/04/2018 8:36 AM INFRASTRUCTURE MANAGER Legal Sex Female 11:10 AM INFRASTRUCTURE MANAGER Gender Identity Female 11/04/2018 8:36 AM INFRASTRUCTURE MANAGER Sexual Orientation Straight 11/04/2018 8: 36 AM INFRASTRUCTURE MANAGER 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 Nalini Conte RN ASTRUCTURE MANAGER documented in this encounter Plan of Treatment Not on file documented as of this encounter Visit Diagnoses Not on filedocumented in this encounter Additional Health Concerns Assessment Noted Time PHQ-9 Depression Total Score: 19 018 9:18 AM INFRASTRUCTURE MANAGER documented as of this encounter Care Teams Creative Services Specialist Relationship Specialty Start Date End Date Andrez Krause PA-C PCP - General Physician Clinical Account Manager - Medical 10/09/15 05/29/21 Andrez Krause PA-C [address] [place] [address] PCP - Assigned PCP 09/13/15 12/14/18 Heaven Brunson PA-C [facility] [address] [place] [address] PCP - General Physician Clinical Account Manager 05/30/21 Andrez Krause PA-C [address] [place] [address] Assigned PCP 09/13/15 06/20/22 Mona Tian MD [address] [place] [address] Assigned OBGYN Provider 08/03/20 Brett Torres MD [address] [place] [address] Assigned Behavioral Health Provider 07/14/21 01/02/23 Karen Galvan PA-C 6363 [facility] 103 [place] [address] Assigned Sleep Provider 09/01/21 Marie Lawrence [facility] 5775 [facility] 200 [place], [place] [address] Assigned MTM Pharmacist 04/05/22 documented as of this encounter
--- OUTSIDE RECORDS SUMMARY | 2025-06-01 11:26 | XMS_ITS | Encounter Summary ---
Author Organization [place] Address [address] [place] [address] Care Team Providers Care Cotton Classer Name Role Phone Andrez Krause PA-C Primary Care Provider [phone] Andrez Krause PA-C Unavailable +[phone] Mona Tian MD Unavailable [phone] Heaven Brunson PA-C Primary Care Provider Brett Torres MD Unavailable +[phone] Karen Galvan PA-C Unavailable + [phone] Marie Lawrence [facility] Unavailable Reason for Visit * Reason Onset Date Comments Medication Question 07/02/2020 Encounter Details Date Type Department Care Team (Late st Contact Info) Description 07/02/2020 [facility] [place] [address] [address] Mona Tian MD [address] [place] [address] Medication Question Social History Tobacco Use Types Packs/Day Years Used Date Smoking Tobacco: Never Smokeless Tobacco: Never Alcohol Use Standard Drinks/Week Comments Yes 0 (1 standard drink = 0.6 oz pur e alcohol) Social, rare PHQ-2 Answer Date Recorded PHQ-2 Score 3 02/17/2019 Comments No Sex and Gender Information Value Date Recorded Sex Assigned at Female 11/04/2018 8:36 AM WEBMETHODS CONSULTANT Legal Sex Female 11:10 AM WEBMETHODS CONSULTANT Gender Identity Female 11/04/2018 8:36 AM WEBMETHODS CONSULTANT Sexual Orientation Straight 11/04/2018 8: 36 AM WEBMETHODS CONSULTANT 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 file Not on file [...] documented as of this encounter Care Teams Cotton Classer Relationship Specialty Start Date End Date Andrez Krause PA-C PCP - General Physician Obstetrical Tech - Medical 10/09/15 05/29/21 Heaven Brunson PA-C [facility] [address] [place] [address] PCP - General Physician Obstetrical Tech 05/30/21 Andrez Krause PA-C [address] [place] [address] Assigned PCP 09/13/15 06/20/22 Mona Tian MD [address] [place], [place] [address] Assigned OBGYN Provider 08/03/20 Brett Torres MD [address] [place], [place] [address] Assigned Behavioral Health Provider 07/14/21 01/02/23 Karen Galvan PA-C 6363 [facility] 103 [place], [place] [address] Assigned Sleep Provider 09/01/21 Marie Lawrence, [facility] 5775 [facility] 200 [place], [place] [address] Assigned MTM Pharmacist 04/05/22 documented as of this encounter
--- OUTSIDE RECORDS SUMMARY | 2025-06-01 11:26 | XMS_ITS | Encounter Summary ---
Author Organization [place] Address [address] [place] [address] Care Team Providers Care Vending Machine Mechanic Name Role Phone Andrez Krause PA-C Primary Care Provider [phone] Andrez Krause PA-C Unavailable [phone] Mona Tian MD Unavailable [phone] Heaven Brunson PA-C Primary Care Provider Brett Torres MD Unavailable +[phone] Karen Galvan PA-C Unavailable [phone] Marie Lawrence [facility] Unavailable +[phone] Reason for Visit * Reason Onset Date Comments Headache 04/12/2020 Encounter Details Date Type Department Care Team (Late st Contact Info) Description 04/12/2020 My[facility] Medical Advice [address], [address] [place] [address] Andrez Krause PA-C [address] [place] [address] Headache Social History Tobacco Use Types Packs/Day Years Used Date Smoking Tobacco: Never Smokeless Tobacco: Never Alcohol Use Standard Drinks/Week Comments Yes 0 (1 standard drink = 0.6 oz pur e alcohol) Social, rare PHQ-2 Answer Date Recorded PHQ-2 Score 3 02/17/2019 Comments No Sex and Gender Information Value Date Recorded Sex Assigned at Female 11/04/2018 8:36 AM ANIMAL GROOMER Legal Sex Female 11:10 AM ANIMAL GROOMER Gender Identity Female 11/04/2018 8:36 AM ANIMAL GROOMER Sexual Orientation Straight 11/04/2018 8: 36 AM ANIMAL GROOMER 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 Constantin Denise RN [...] documented as of this encounter Care Teams Vending Machine Mechanic Relationship Specialty Start Date End Date Andrez Krause PA-C PCP - General Physician Wooden Boat Builder - Medical 10/09/15 05/29/21 Heaven Brunson PA-C [facility] [address] [place] [address] PCP - General Physician Wooden Boat Builder 05/30/21 Andrez Krause PA-C [address] [place] [address] Assigned PCP 09/13/15 06/20/22 Mona Tian MD [address] [place] [address] Assigned OBGYN Provider 08/03/20 Brett Torres MD [address] [place] [address] Assigned Behavioral Health Provider 07/14/21 01/02/23 Karen Galvan PA-C 6363 [facility] 103 [place] [address] Assigned Sleep Provider 09/01/21 Marie Lawrence, [facility] 5775 [facility] 200 [place], [place] [id number] Assigned MTM Pharmacist 04/05/22 documented as of this encounter
--- OUTSIDE RECORDS SUMMARY | 2025-06-01 11:26 | XMS_ITS | Encounter Summary ---
Author Organization [place] Address [address] [place] [address] Care Team Providers Care Waiter/Waitress Room Service Name Role Phone Andrez Krause PA-C Primary Care Provider [phone] Andrez Krause PA-C Unavailable [phone] Andrez Krause PA-C Unavailable [phone] Mona Tian MD Unavailable [phone] Heaven Brunson PA-C Primary Care Provider Brett Torres MD Unavailable +[phone] Karen Galvan-Subha Unavailable [phone] Marie Lawrence [facility] Unavailable [phone] Reason for Referral * Consultation - Closed Specialty Diagnoses / Procedures Referred By Andie t Referred To Contact Diagnoses Migraine without aura and without status migrainosus, not intractable Andrez Krause PA-C Phone: tel: fax: [facility] [address] [place] [address] Phone: tel: fax: Referral ID Status Reason Start Date Expiration Date Visits Re quested Visits Authorized [id number] Closed 11/22/2018 11/22/2019 1 1 Comments Your provider has referred you for the following: Consult at [facility]: [facility] [email or web address] Please be aware that coverage of these services is subject to the terms and limitations of your health insurance plan. Call member services at your health plan with any benefit or coverage questions. Please bring the following with you to your appointment: (1) Any X-Rays, CTs or MRIs which have been performed. Contact the facility where they were done to arrange for picking crew supervisor prior to your scheduled appointment. (2) List of current medications (3) This referral request (4) Any documents/labs given to you for this referral GLASS SANDER Reason for Visit * Reason Onset Date Comments Patient/info Update 11/11/2018 Prior auth f or Aimovig Encounter Details Date Type Department Care Team (Late st Contact Info) Description 11/11/2018 [facility] [place] [address], [address] [place] [address] Andrez Krause PA-C [address] [place] [id number] Patient/info Update (Prior auth for Aimovig) Social History Tobacco Use Types Packs/Day Years Used Date Smoking Tobacco: Never Smokeless Tobacco: Never Alcohol Use Standard Drinks/Week Comments Yes 0 (1 standard drink = 0.6 oz pur e alcohol) Social, rare PHQ-2 Answer Date Recorded PHQ-2 Score 6 10/19/2018 Comments No Sex and Gender Information Value Date Recorded Sex Assigned at Female 11/04/2018 8:36 AM BELT GLASS SANDER Legal Sex Female 11:10 AM BELT GLASS SANDER Gender Identity Female 11/04/2018 8:36 AM BELT GLASS SANDER Sexual Orientation Straight 11/04/2018 8: 36 AM BELT GLASS SANDER 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 Please callher with info. Andrez Arango GLASS SANDER * Telephone Encounter - Nalini Conte RN [...] sent to patient. Nalini Conte RN ?? GLASS SANDER documented in this encounter Plan of Treatment [...] PHQ-9 Depression Total Score: 019 5:05 PM BELT GLASS SANDER documented as of this encounter Care Teams Waiter/Waitress Room Service Relationship Specialty Start Date End Date Andrez Krause PA-C PCP - General Physician Energy Rater - Medical 10/09/15 05/29/21 Andrez Krause PA-C [address] [address] PCP - Assigned PCP 09/13/15 12/14/18 Heaven Brunson PA-C [facility] [address] [place] [address] PCP - General Physician Energy Rater 05/30/21 Andrez Krause PA-C [address] [place] [address] Assigned PCP 09/13/15 06/20/22 Mona Tian MD [address] [place] [address] Assigned OBGYN Provider 08/03/20 Brett Torres MD [address] [place] [address] Assigned Behavioral Health Provider 07/14/21 01/02/23 Karen Galvan PA-C 6363 [facility] 103 [place] [address] Assigned Sleep Provider 09/01/21 Marie Lawrence, [facility] 5775 [facility] 200 [place], [place] [address] Assigned MTM Pharmacist 04/05/22 documented as of this encounter
--- OUTSIDE RECORDS SUMMARY | 2025-06-01 11:26 | XMS_ITS | Encounter Summary ---
Author Organization [place] Address [address] [place] [address] Care Team Providers Care Engine Monitor Name Role Phone Andrez Krause PA-C Primary Care Provider [phone] Andrez Krause PA-C Unavailable [phone] Andrez Krause PA-C Unavailable [phone] Mona Tian MD Unavailable [phone] Heaven Brunson PA-C Primary Care Provider Brett Torres MD Unavailable [phone] Karen Galvan PA-C Unavailable + [phone] Marie Lawrence [facility] Unavailable [phone] Reason for Visit * Reason Onset Date Comments Headache 11/30/2018 update Encounter Details Date Type Department Care Team (Late st Contact Info) Description 11/30/2018 My[facility] Medical Advice [address], [address] [place] [address] Andrez Krause PA-C [address] [place] [address] Headache (update) Social History Tobacco Use Types Packs/Day Years Used Date Smoking Tobacco: Never Smokeless Tobacco: Never Alcohol Use Standard Drinks/Week Comments Yes 0 (1 standard drink = 0.6 oz pur e alcohol) Social, rare PHQ-2 Answer Date Recorded PHQ-2 Score 6 10/19/2018 Comments No Sex and Gender Information Value Date Recorded Sex Assigned at Female 11/04/2018 8:36 AM SUPERVISOR ELECTRONICS ASSEMBLY Legal Sex Female 11:10 AM SUPERVISOR ELECTRONICS ASSEMBLY Gender Identity Female 11/04/2018 8:36 AM SUPERVISOR ELECTRONICS ASSEMBLY Sexual Orientation Straight 11/04/2018 8: 36 AM SUPERVISOR ELECTRONICS ASSEMBLY 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 [place] [address] PCP - Assigned PCP 09/13/15 12/14/18 Heaven Brunson PA-C [facility] [address] [place] [address] PCP - General Physician Principal Secretary 05/30/21 Andrez Krause PA-C [address] [place] [address] Assigned PCP 09/13/15 06/20/22 Mona Tian MD [address] [place] [address] Assigned OBGYN Provider 08/03/20 Brett Torres MD [address] [place] [address] Assigned Behavioral Health Provider 07/14/21 01/02/23 Karen Galvan PA-C 6363 [facility] 103 [place] [address] Assigned Sleep Provider 09/01/21 Marie Lawrence, [facility] 5775 [facility] 200 [place], [place] [address] Assigned MTM Pharmacist 04/05/22 documented as of this encounter
--- OUTSIDE RECORDS SUMMARY | 2025-06-01 11:26 | XMS_ITS | Encounter Summary ---
Author Organization [place] Address [address] [place] [address] Care Team Providers Care Farmworkers Name Role Phone Andrez Krause PA-C Unavailable [phone] Heaven Brunson PA-C Primary Care Provider Brett Torres MD Unavailable [phone] Karen Galvan PA-C Unavailable [phone] Marie Lawrence [facility] Unavailable [phone] Encounter Details Date Type Department Care Team (Late st Contact Info) Description 08/20/2021 [facility] [place] Medical Advice [facility] [address] [place] [address] Molly Hinson, [facility] Social History Tobacco Use Types Packs/Day Years Used Date Smoking Tobacco: Never Smokeless Tobacco: Never Alcohol Use Standard Drinks/Week Comments Yes 0 (1 standard drink = 0.6 oz pur e alcohol) Social, rare PHQ-2 Answer Date Recorded PHQ-2 Score 6 07/03/2021 Comments No Sex and Gender Information Value Date Recorded Sex Assigned at Female 11/04/2018 8:36 AM RETAIL PHARMACY MERCHANDISER Legal Sex Female 11:10 AM RETAIL PHARMACY MERCHANDISER Gender Identity Female 11/04/2018 8:36 AM RETAIL PHARMACY MERCHANDISER Sexual Orientation Straight 11/04/2018 8: 36 AM RETAIL PHARMACY MERCHANDISER 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 file Not on file Not o n file documented as of this encounter Plan of Treatment Not on file documented as of this encounter Visit Diagnoses Not on filedocumented in this encounter Additional Health Concerns Assessment Noted Time PHQ-9 Depression Total Score: 24 021 12:59 PM CDT documented as of this encounter Care Teams Farmworkers Relationship Specialty Start Date End Date Heaven Brunson PA-C [facility] [address] [place] [address] PCP - General Physician Line Worker 05/30/21 Andrez Krause PA-C [address] [place] [address] Assigned PCP 09/13/15 06/20/22 Brett Torres MD [address] [place] [address] Assigned Behavioral Health Provider 07/14/21 01/02/23 Karen Galvan PA-C 6363 [facility] 103 [place] [address] Assigned Sleep Provider 09/01/21 Marie Lawrence, [facility] 5775 [facility] 200 [place], [place] [address] Assigned MTM Pharmacist 04/05/22 documented as of this encounter
--- OUTSIDE RECORDS SUMMARY | 2025-06-01 11:26 | XMS_ITS | Encounter Summary ---
Author Organization [facility] Address [address] [place] [address] Care Team Providers Care Agronomy Supervisor Name Role Phone Andrez Krause PA-C Primary Care Provider [phone] Andrez Krause PA-C Unavailable [phone] Andrez KrauseC Unavailable [phone] Mona Tian MD Unavailable [phone] Heaven BrunsonC Primary Care Provider Brett Torres MD Unavailable [phone] Karen Galvan-C Unavailable + [phone] Marie Lawrence [facility] Unavailable [phone] Encounter Details Date Type Department Care Team (Late st Contact Info) Description 08/25/2017 My[facility] Medical Advice [address], [address] [place] [address] Nalini Conte RN Social History Tobacco Use Types Packs/Day Years Used Date Smoking Tobacco: Never Smokeless Tobacco: Never Alcohol Use Standard Drinks/Week Comments Yes 0 (1 standard drink = 0.6 oz pur e alcohol) socially Comments No Sex and Gender Information Value Date Recorded Sex Assigned at Female 11/04/2018 8:36 AM ADVOCACY DIRECTOR Legal Sex Female 11:10 AM ADVOCACY DIRECTOR Gender Identity Female 11/04/2018 8:36 AM ADVOCACY DIRECTOR Sexual Orientation Straight 11/04/2018 8: 36 AM ADVOCACY DIRECTOR 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 Not on file Not on file documented as of this encounter Plan of Treatment Not on file documented as of this encounter Visit Diagnoses Not on filedocumented in this encounter Additional Health Concerns Assessment Noted Time PHQ-9 Depression Total Score: 25 017 7:07 AM CDT documented as of this encounter Care Teams Agronomy Supervisor Relationship Specialty Start Date End Date Andrez Krause PA-C PCP - General Physician King Maker - Medical 10/09/15 05/29/21 Andrez Krause PA-C [address] [place] [address] PCP - Assigned PCP 09/13/15 12/14/18 Heaven Brunson PA-C [facility] [address] [place] [address] PCP - General Physician King Maker 05/30/21 Andrez Krause PA-C [address] [place] [address] Assigned PCP 09/13/15 06/20/22 Mona Tian MD [address] [place] [address] Assigned OBGYN Provider 08/03/20 Brett Torres MD [address] [place], [place] [address] Assigned Behavioral Health Provider 07/14/21 01/02/23 Karen Galvan PA-C [address] [address] Assigned Sleep Provider 09/01/21 Marie Lawrence, [facility] [address] [address] Assigned MTM Pharmacist 04/05/22 documented as of this encounter
--- OUTSIDE RECORDS SUMMARY | 2025-06-01 11:26 | XMS_ITS | Encounter Summary ---
Author Organization [facility] Address [address] [place] [address] Care Team Providers Care Licensing Representative Name Role Phone Andrez Krause PA-C Primary Care Provider [phone] Andrez Krause PA-C Unavailable [phone] Andrez KrauseC Unavailable [phone] Mona Tian MD Unavailable [phone] Heaven BrunsonC Primary Care Provider Brett Torres MD Unavailable [phone] Karen Galvan-C Unavailable + [phone] Marie Lawrence [facility] Unavailable [phone] Encounter Details Date Type Department Care Team (Late st Contact Info) Description 06/11/2016 My[facility] Medical Advice [address], [address] [place] [address] Josefina Diop, CURRICULUM FACILITATOR STATION DETECTIVE [address] [place] [address] [address] [place] [address] Social History Tobacco Use Types Packs/Day Years Used Date Smoking Tobacco: Never Smokeless Tobacco: Never Alcohol Use Standard Drinks/Week Comments Yes 0 (1 standard drink = 0.6 oz pur e alcohol) socially Comments No Sex and Gender Information Value Date Recorded Sex Assigned at Female 11/04/2018 8:36 AM CUT ROLL MACHINE OFFBEARER Legal Sex Female 11:10 AM CUT ROLL MACHINE OFFBEARER Gender Identity Female 11/04/2018 8:36 AM CUT ROLL MACHINE OFFBEARER Sexual Orientation Straight 11/04/2018 8: 36 AM CUT ROLL MACHINE OFFBEARER documented as of this encounter Plan of Treatment Not on file documented as of this encounter Visit Diagnoses Not on filedocumented in this encounter Additional Health Concerns Assessment Noted Time PHQ-9 Depression Total Score: 25 016 7:14 AM CDT documented as of this encounter Care Teams Licensing Representative Relationship Specialty Start Date End Date Andrez Krause PA-C PCP - General Physician Continuous Mining Machine Company Miner - Medical 10/09/15 05/29/21 Andrez Krause PA-C [address] [place] [address] PCP - Assigned PCP 09/13/15 12/14/18 Heaven Brunson PA-C [facility] [address], [place] [address] PCP - General Physician Continuous Mining Machine Company Miner 05/30/21 Andrez Krause PA-C [address] [place] [address] Assigned PCP 09/13/15 06/20/22 Mona Tian MD [address] [place], [place] [address] Assigned OBGYN Provider 08/03/20 Brett Torres MD [address] [place] [address] Assigned Behavioral Health Provider 07/14/21 01/02/23 Karen Galvan PA-C [address] [address] Assigned Sleep Provider 09/01/21 Marie Lawrence, [facility] [address] [facility] [address] [place] [address] Assigned MTM Pharmacist 04/05/22 documented as of this encounter
--- OUTSIDE RECORDS SUMMARY | 2025-06-01 11:26 | XMS_ITS | Encounter Summary ---
Author Organization [facility] Address [address] [place] [address] Care Team Providers Care Director Child Abuse Therapy Name Role Phone Andrez Krause PA-C Primary Care Provider [phone] Andrez Krause PA-C Unavailable [phone] Andrez Krause PA-C Unavailable [phone] Mona Tian MD Unavailable [phone] Heaven Brunson PA-C Primary Care Provider Brett Torres MD Unavailable +[phone] Karen Galvan-Subha Unavailable + [phone] Marie Lawrence [facility] Unavailable +[phone] Reason for Visit * Reason Onset Date Comments Forms 04/08/2017 FMLA Encounter Details Date Type Department Care Team (Late st Contact Info) Description 04/08/2017 MyC Medical Advice [address], [address] [place] [address] Andrez Krause PA-C [address] [place] [address] Forms (FMLA) Social History Tobacco Use Types Packs/Day Years Used Date Smoking Tobacco: Never Smokeless Tobacco: Never Alcohol Use Standard Drinks/Week Comments Yes 0 (1 standard drink = 0.6 oz pur e alcohol) socially Comments No Sex and Gender Information Value Date Recorded Sex Assigned at Female 11/04/2018 8:36 AM PEDIATRIC CARE COORDINATOR Legal Sex Female 11:10 AM PEDIATRIC CARE COORDINATOR Gender Identity Female 11/04/2018 8:36 AM PEDIATRIC CARE COORDINATOR Sexual Orientation Straight 11/04/2018 8: 36 AM PEDIATRIC CARE COORDINATOR 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 Not on file Not on file documented as of this encounter Plan of Treatment Not on file documented as of this encounter Visit Diagnoses Not on filedocumented in this encounter Additional Health Concerns Assessment Noted Time PHQ-9 Depression Total Score: 11 017 7:20 AM CDT documented as of this encounter Care Teams Director Child Abuse Therapy Relationship Specialty Start Date End Date Andrez Krause PA-C PCP - General Physician Electrical Machinist - Medical 10/09/15 05/29/21 Andrez Krause PA-C [address] [place] [address] PCP - Assigned PCP 09/13/15 12/14/18 Heaven Brunson PA-C [facility] [address] [place] [address] PCP - General Physician Electrical Machinist 05/30/21 Andrez Krause PA-C [address] [place] [address] Assigned PCP 09/13/15 06/20/22 Mona Tian MD [address] [place], [place] 68[address] Assigned OBGYN Provider 08/03/20 Brett Torres MD [address] [place] [address] 224164 Assigned Behavioral Health Provider 07/14/21 01/02/23 Karen Galvan PA-C [address] [place] [address] Assigned Sleep Provider 09/01/21 Marie Lawrence, [facility] [address] [facility] [address] [place], [place] [address] Assigned MTM Pharmacist 04/05/22 documented as of this encounter
--- OUTSIDE RECORDS SUMMARY | 2025-06-01 11:26 | XMS_ITS | Encounter Summary ---
Author Organization [facility] Address [address] [place] [address] Care Team Providers Care Hospital Insurance Clerk Name Role Phone Andrez Krause PA-C Primary Care Provider [phone] Andrez Krause PA-C Unavailable [phone] Andrez Krause PA-C Unavailable [phone] Mona Tian MD Unavailable [phone] Heaven Brunson PA-C Primary Care Provider Brett Torres MD Unavailable +[phone] Karen Galvan-Subha Unavailable + [phone] Marie Lawrence [facility] Unavailable +[phone] Reason for Visit * Reason Onset Date Comments Mental Health Problem 09/11/2017 Encounter Details Date Type Department Care Team (Late st Contact Info) Description 09/11/2017 MyC Medical Advice [address], [address] [place] [address] Andrez Krause PA-C [address] [place] [address] Mental Health Problem Social History Tobacco Use Types Packs/Day Years Used Date Smoking Tobacco: Never Smokeless Tobacco: Never Alcohol Use Standard Drinks/Week Comments Yes 0 (1 standard drink = 0.6 oz pur e alcohol) socially Comments No Sex and Gender Information Value Date Recorded Sex Assigned at Female 11/04/2018 8:36 AM SUPERVISOR CAR AND YARD Legal Sex Female 11:10 AM SUPERVISOR CAR AND YARD Gender Identity Female 11/04/2018 8:36 AM SUPERVISOR CAR AND YARD Sexual Orientation Straight 11/04/2018 8: 36 AM SUPERVISOR CAR AND YARD 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 Not on file Not on file documented as of this encounter Plan of Treatment Not on file documented as of this encounter Visit Diagnoses Not on filedocumented in this encounter Additional Health Concerns Assessment Noted Time PHQ-9 Depression Total Score: 25 017 7:54 AM SUPERVISOR CAR AND YARD documented as of this encounter Care Teams Hospital Insurance Clerk Relationship Specialty Start Date End Date Andrez Krause PA-C PCP - General Physician Hospice Registered Nurse - Medical 10/09/15 05/29/21 Andrez Krause PA-C [address] [place] [address] PCP - Assigned PCP 09/13/15 12/14/18 Heaven Brunson PA-C [facility] [address] [place] [address] PCP - General Physician Hospice Registered Nurse 05/30/21 Andrez Krause PA-C [address] [place] [address] Assigned PCP 09/13/15 06/20/22 Mona Tian MD [address] [place], [place] [address] Assigned OBGYN Provider 08/03/20 Brett Torres MD [address] [place] [address] 216754 Assigned Behavioral Health Provider 07/14/21 01/02/23 Karen Galvan PA-C [address] [facility] [address] [place] [address] Assigned Sleep Provider 09/01/21 Marie Lawrence [facility] [address] [facility] 200 [place], [place] [address] Assigned MTM Pharmacist 04/05/22 documented as of this encounter
--- OUTSIDE RECORDS SUMMARY | 2025-06-01 11:26 | XMS_ITS | Encounter Summary ---
Author Organization [facility] Address [address] [place] [address] Care Team Providers Care Soap Boiler Name Role Phone Andrez Krause PA-C Primary Care Provider [phone] Andrez KrauseC Unavailable [phone] Andrez Krause-C Unavailable [phone] Mona Tian MD Unavailable [phone] Heaven Brunson-C Primary Care Provider Brett Torres MD Unavailable +[phone] Karen Galvan PA-C Unavailable [phone] Marie Lawrence [facility] Unavailable [phone] Reason for Visit * Reason Onset Date Comments MyChart Communication 10/22/2016 PHQ-9, due for depression follow up Encounter Details Date Type Department Care Team (Latest Contact Info) Description 10/22/2016 MyC Medical Advice [address], [address] [place] [address] Marnie Mabry MA MyChart Communication (PHQ-9, due for depr... Social History Tobacco Use Types Packs/Day Years Used Date Smoking Tobacco: Never Smokeless Tobacco: Never Alcohol Use Standard Drinks/Week Comments Yes 0 (1 standard drink = 0.6 oz pur e alcohol) socially Comments No Sex and Gender Information Value Date Recorded Sex Assigned at Female 11/04/2018 8:36 AM FISH TENDER Legal Sex Female 11:10 AM FISH TENDER Gender Identity Female 11/04/2018 8:36 AM FISH TENDER Sexual Orientation Straight 11/04/2018 8: 36 AM FISH TENDER documented as of this encounter Plan of Treatment Not on file documented as of this encounter Visit Diagnoses Not on filedocumented in this encounter Additional Health Concerns Assessment Noted Time PHQ-9 Depression Total Score: 21 016 7:20 AM CDT documented as of this encounter Care Teams Soap Boiler Relationship Specialty Start Date End Date Andrez Krause PA-C PCP - General Physician Trapeze Artist - Medical 10/09/15 05/29/21 Andrez Krause PA-C [address] [place] [address] PCP - Assigned PCP 09/13/15 12/14/18 Heaven Brunson PA-C [facility] [address], [place] [address] PCP - General Physician Trapeze Artist 05/30/21 Andrez Krause PA-C [address] [place] [address] Assigned PCP 09/13/15 06/20/22 Mona Tian MD [address] [place], [place] 65[address] Assigned OBGYN Provider 08/03/20 Brett Torres MD [address] [place] [address] [id number] Assigned Behavioral Health Provider 07/14/21 01/02/23 Karen Galvan PA-C [address] [address] Assigned Sleep Provider 09/01/21 Marie Lawrence, [facility] 5775 [facility] 200 [place] [address] Assigned MTM Pharmacist 04/05/22 documented as of this encounter
--- OUTSIDE RECORDS SUMMARY | 2025-06-01 11:26 | XMS_ITS | Encounter Summary ---
Author Organization [facility] Address [address] [place] [address] Care Team Providers Care Band Teacher Name Role Phone Andrez Krause PA-C Primary Care Provider [phone] Andrez Krause PA-C Unavailable [phone] Andrez KrauseC Unavailable [phone] Mona Tian MD Unavailable [phone] Heaven BrunsonC Primary Care Provider Brett Torres MD Unavailable [phone] Karen Galvan-C Unavailable + [phone] Marie Lawrence [facility] Unavailable [phone] Encounter Details Date Type Department Care Team (Late st Contact Info) Description 04/17/2017 MyC Medical Advice [address], [address] [place] [address] Nalini Conte RN Social History Tobacco Use Types Packs/Day Years Used Date Smoking Tobacco: Never Smokeless Tobacco: Never Alcohol Use Standard Drinks/Week Comments Yes 0 (1 standard drink = 0.6 oz pur e alcohol) socially Comments No Sex and Gender Information Value Date Recorded Sex Assigned at Female 11/04/2018 8:36 AM DOUBLER OPERATOR Legal Sex Female 11:10 AM DOUBLER OPERATOR Gender Identity Female 11/04/2018 8:36 AM DOUBLER OPERATOR Sexual Orientation Straight 11/04/2018 8: 36 AM DOUBLER OPERATOR 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 Not on file Not on file documented as of this encounter Plan of Treatment Not on file documented as of this encounter Visit Diagnoses Not on filedocumented in this encounter Additional Health Concerns Assessment Noted Time PHQ-9 Depression Total Score: 11 017 7:20 AM CDT documented as of this encounter Care Teams Band Teacher Relationship Specialty Start Date End Date Andrez Krause PA-C PCP - General Physician Silver Solderer - Medical 10/09/15 05/29/21 Andrez Krause PA-C [address] [place] [address] PCP - Assigned PCP 09/13/15 12/14/18 Heaven Brunson PA-C [facility] [address] [place] [address] PCP - General Physician Silver Solderer 05/30/21 Andrez Krause PA-C [address] [place] [address] Assigned PCP 09/13/15 06/20/22 Mona Tian MD [address] [place] [address] Assigned OBGYN Provider 08/03/20 Brett Torres MD [address] [place], [place] [address] Assigned Behavioral Health Provider 07/14/21 01/02/23 Karen Galvan PA-C [address] [address] Assigned Sleep Provider 09/01/21 Marie Lawrence, [facility] [address] [address] Assigned MTM Pharmacist 04/05/22 documented as of this encounter
--- OUTSIDE RECORDS SUMMARY | 2025-06-01 11:26 | XMS_ITS | Encounter Summary ---
Author Organization [facility] Address [address] [place] [address] Care Team Providers Care Hearing Therapy Teacher Name Role Phone Andrez Krause PA-C Unavailable [phone] Heaven Brunson PA-C Primary Care Provider Brett Torres MD Unavailable [phone] Karen Galvan PA-C Unavailable + [phone] Marie Lawrence [facility] Unavailable +[phone] Encounter Details Date Type Department Care Team (Late st Contact Info) Description 12/04/2021 [facility] Medical Advice [facility] [address] [facility] [address] [place] [address] Mona Strauss, RN Social History Tobacco Use Types Packs/Day Years Used Date Smoking Tobacco: Never Smokeless Tobacco: Never Alcohol Use Standard Drinks/Week Comments Yes 0 (1 standard drink = 0.6 oz pur e alcohol) Social, rare PHQ-2 Answer Date Recorded PHQ-2 Score 6 07/03/2021 Comments No Sex and Gender Information Value Date Recorded Sex Assigned at Female 11/04/2018 8:36 AM INTERVENTIONAL SALE CONSULTANT Legal Sex Female 11:10 AM INTERVENTIONAL SALE CONSULTANT Gender Identity Female 11/04/2018 8:36 AM INTERVENTIONAL SALE CONSULTANT Sexual Orientation Straight 11/04/2018 8: 36 AM INTERVENTIONAL SALE CONSULTANT 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 Not on file Not o n file documented as of this encounter Plan of Treatment Not on file documented as of this encounter Visit Diagnoses Not on filedocumented in this encounter Additional Health Concerns Assessment Noted Time PHQ-9 Depression Total Score: 021 12:59 PM CDT documented as of this encounter Care Teams Hearing Therapy Teacher Relationship Specialty Start Date End Date Heaven Brunson PA-C [facility] [address] [place] [address] PCP - General Physician Asphalt Tamping Machine Operator 05/30/21 Andrez Krause PA-C [address] [place] [address] Assigned PCP 09/13/15 06/20/22 Brett Torres MD [address] [place], [place] [address] Assigned Behavioral Health Provider 07/14/21 01/02/23 Karen Galvan PA-C [address] [facility] 103 [place], [place] [address] Assigned Sleep Provider 09/01/21 Marie Lawrence, [facility] 5775 [facility] 200 [place], [place] [address] Assigned MTM Pharmacist 04/05/22 documented as of this encounter
--- OUTSIDE RECORDS SUMMARY | 2025-06-01 11:26 | XMS_ITS | Encounter Summary ---
Author Organization [facility] Address [address] [place] [address] Care Team Providers Care Baby Counselor Name Role Phone Andrez Krause PA-C Primary Care Provider [phone] Andrez Krause PA-C Unavailable [phone] Andrez Krause PA-C Unavailable [phone] Mona Tian MD Unavailable [phone] Heaven Brunson PA-C Primary Care Provider Brett Torres MD Unavailable [phone] Karen Galvan-Subha Unavailable + [phone] Marie Lawrence [facility] Unavailable [phone] Reason for Visit * Reason Onset Date Comments Medication Problem 02/13/2016 Lexapro Encounter Details Date Type Department Care Team (Late st Contact Info) Description 02/13/2016 [facility] Medical Advice [address], [address] [place] [address] Andrez Krause PA-C [address] [place] [address] Medication Problem (Lexapro) Social History Tobacco Use Types Packs/Day Years Used Date Smoking Tobacco: Never Alcohol Use Standard Drinks/Week Comments Yes 0 (1 standard drink = 0.6 oz pur e alcohol) Comments No Sex and Gender Information Value Date Recorded Sex Assigned at Female 11/04/2018 8:36 AM PHARMACOLOGY TEACHER Legal Sex Female 11:10 AM PHARMACOLOGY TEACHER Gender Identity Female 11/04/2018 8:36 AM PHARMACOLOGY TEACHER Sexual Orientation Straight 11/04/2018 8: 36 AM PHARMACOLOGY TEACHER documented as of this encounter Plan of Treatment Not on file documented as of this encounter Visit Diagnoses Not on filedocumented in this encounter Additional Health Concerns Assessment Noted Time PHQ-9 Depression Total Score: 21 01/08/ 016 9:30 AM CDT documented as of this encounter Care Teams Baby Counselor Relationship Specialty Start Date End Date Andrez Krause PA-C PCP - General Physician Plastic Joint Maker - Medical 10/09/15 05/29/21 Andrez Krause PA-C [address] [place] [address] PCP - Assigned PCP 09/13/15 12/14/18 Heaven Brunson PA-C [facility] [address], [place] [address] PCP - General Physician Plastic Joint Maker 05/30/21 Andrez Krause PA-C [address] [facility] [place] [address] Assigned PCP 09/13/15 06/20/22 Mona Tian MD [address] [place] [address] Assigned OBGYN Provider 08/03/20 Brett Torres MD [address] [place] [address] Assigned Behavioral Health Provider 07/14/21 01/02/23 Karen Galvan PA-C 6[address] [facility] 103 [place] [address] Assigned Sleep Provider 09/01/21 Marie Lawrence, [facility]ARE [address] [facility] 200 [place] [address] Assigned MTM Pharmacist 04/05/22 documented as of this encounter
--- OUTSIDE RECORDS SUMMARY | 2025-06-01 11:26 | XMS_ITS | Encounter Summary ---
Author Organization [facility] Address [address] [place] [address] Care Team Providers Care Splicer Operator Name Role Phone Andrez Krause PA-C Unavailable [phone] Mona Tian MD Unavailable [phone] Heaven Brunson PA-C Primary Care Provider Brett Torres MD Unavailable [phone] Karen Galvan PA-C Unavailable + [phone] Marie Lawrence [facility] Unavailable [phone] Encounter Details Date Type Department Care Team (Late st Contact Info) Description 06/05/2021 [facility] Medical Advice [facility] [address] [facility] [address] [place] [address] Mendel Patricia Social History Tobacco Use Types Packs/Day Years Used Date Smoking Tobacco: Never Smokeless Tobacco: Never Alcohol Use Standard Drinks/Week Comments Yes 0 (1 standard drink = 0.6 oz pur e alcohol) Social, rare PHQ-2 Answer Date Recorded PHQ-2 Total Score (Adult) - Positive if 3 or more points; Administer PHQ-9 if positive 6 06/05/2021 Comments No Sex and Gender Information Value Date Recorded Sex Assigned at Female 11/04/2018 8:36 AM GRAIN ROASTER Legal Sex Female 11:10 AM GRAIN ROASTER Gender Identity Female 11/04/2018 8:36 AM GRAIN ROASTER Sexual Orientation Straight 11/04/2018 8: 36 AM GRAIN ROASTER 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 Not on file Not on file Not o n file documented as of this encounter Plan of Treatment Not on file documented as of this encounter Visit Diagnoses Not on filedocumented in this encounter Additional Health Concerns Assessment Noted Time PHQ-9 Depression Total Score: 021 7:02 AM CDT documented as of this encounter Care Teams Splicer Operator Relationship Specialty Start Date End Date Heaven Brunson PA-C [facility] [address] [place] [address] PCP - General Physician Group Art Supervisor 05/30/21 Andrez Krause PA-C [address] [facility] [address] Assigned PCP 09/13/15 06/20/22 Mona Tian MD [address] [place], [place] [address] Assigned OBGYN Provider 08/03/20 Brett Torres MD [address] [place], [place] [address] Assigned Behavioral Health Provider 07/14/21 01/02/23 Karen Galvan PA-C [address] [facility] 103 [place], [place] [address] Assigned Sleep Provider 09/01/21 Marie Lawrence, [facility] [facility] [address] [facility] [address] [place], [place] [id number] Assigned MTM Pharmacist 04/05/22 documented as of this encounter
--- OUTSIDE RECORDS SUMMARY | 2025-06-01 11:26 | XMS_ITS | Clinical Summary ---
Author Organization [facility] Address [address] [place] [address] Care Team Providers Care Jewelry Facer Name Role Phone Heaven Brunson PA-C Primary Care Provider + [phone] Allergies Active Allergy Reactions Criticality Noted Date Comments Adhesive Contact Dermatitis,Itching,Rash 04/11 Iodine Contact Dermatitis,Itching,Rash 04/11 Medications cholecalciferol, Vitamin D3, 2,000 unit tablet Take 50 mcg by mouth. Active hydrOXYzine HCL (ATARAX) 50 mg tablet 1 tablet as needed Active metFORMIN (GLUCOPHAGE) 1,000 mg tablet Take 500 mg by mouth two times daily with meals. Active Vyvanse 30 mg capsule 1 cap(s) orally every morning* 03/24/20 23 Active ondansetron (ZOFRAN) 4 mg tablet Take 1 tablet every 8 hours, as needed, for nausea Active metoprolol succinate (TOPROL XL) 25 mg Sustained-Release tablet Take 25 mg by mouth once daily. 10/19/19 24 Active OXcarbazepine (TRILEPTAL) 300 mg tablet Take 300 mg by mouth two times daily. 10/30/19 24 Active Nurtec ODT 75 mg orally disintegrating tablet Place 75 mg on the tongue once every other day. Active Apri tablet 1 tab orally every day; To take continuously, allowing for a period every 3 months.* 05/09/20 24 Active prochlorperazine (COMPAZINE) 10 mg tablet take 1 tablet by oral route up to 3 times every day, alternating with Zofran* 02/15/20 24 Active Active Problems Problem Noted Date Diagnosed Date Severe episode of recurrent major depressive disorder, without psychotic features 11/23/2023 Irritable bowel syndrome wit h both constipation and diarrhea 11/23/2023 QUEVEDO (nonalcoholic steatohepatitis) 11/23/2023 Sinus tachycardia 11/23/2023 Essential hypertension 11/23/2023 Major depressive disorder, single episode, moder ate 2007 Dysthymic disorder 2007 Rule Out - GENERALIZED ANXIETY DISORDER 02/12/20 07 Immunizations Immunization Administration Dates Next Due DTP-HIB 05/14/1994, 3,1993,05/08 DTaP 03/28/1998 HPV 9 (Gardasil 9) 02/12/2007 Hepatitis A (Adult) 04/24/2010 Hepatitis A, Unspecified 04/24/2010 Hepatitis B (Peds) 1993,1993, 993 Human Papilloma Virus Vaccine 09/20/2007, 007,02/12/2007 Influenza A (H1N1), Inactivated 10/17/2009 Influenza A (H1N1), Inactiva sai (Age >=3 Years) 10/17/2009 Influenza Virus, Unspecified 08/27/2010 MENINGOCOCCAL VACCINE 2 VIAL [id number] (MENVEO) 04/24/2010 MMR 06/21/1997,02/13/1994 Oral Polio Vaccine 03/28/1998, 4,1993,05/08 Td (Age [...] 6 02/25/2021 Social Connections Answer Date Recorded Do you often feel lonely or isolated from those around you? 0 11/23/2023 Financial Resource Strain Answer Date R ecorded Difficulty of Paying Living Expenses 3 11/23/2023 Difficulty of Paying Living Expenses Not on file 11/23/2023 Food Insecurity Answer Date Recorded Do you worry your food will run out before you are able to buy more? 1 11/23/2023 Transportation Needs Answer Date Record ed Does lack of transportation keep you from medica l appointments? 1 11/23/2023 Does lack of transportation keep you from work, meetings or getting things that you need? 1 11/23/2023 Housing Stability Answer Date Recorded What is your housing situation today? 1 11/23/2023 Utilities Answer Date Recorded Do you have trouble paying f or utilities (for example, heat, electricity, water, phone)? 1 11/23/2023 Comments No Sex and Gender Information Value Date Recorded Sex Assigned at Not on file Legal Sex Female 7:15 AM GAS FITTER HELPER Gender Identity Not on file Sexual Orientation Not on file Obstetrics History Last Filed Vital Signs Vital Sign Reading Time Taken Comments Blood Pressure 115/71 05/16/2024 2:31 PM CDT Pulse 75 05/16/2024 2:31 PM CDT Temperature 36.5 C (97.7 F) 05/16/2024 2:31 PM CDT Respiratory Rate 14 05/16/2024 2:31 PM CDT Oxygen Saturation 99% 05/16/2024 2:31 PM CDT Inhaled Oxygen Concentration - - Weight 110.7 kg (244 lb) 01/26/2024 1:20 PM CDT Height 167.6 cm (5' 6) 11/23/2023 2:21 PM GAS FITTER HELPER Body Mass Index 39.38 11/23/2023 2:21 PM GAS FITTER HELPER Plan of Treatment Health Maintenance Due Date Last Done Comments HIV for age 15-65 02/12/2008 Hepatitis C screening for age 18-79 2011 Depression screening for age 12+ 02/25/2022 02/25/2021 Pap test for age 21-65 10/21/2024 10/21/2021, 2021 BMI (ht and wt on same day) for age 18+ 11/23/2024 11/23/2023, 02/04/2022, 02/25/2021 Influenza Vaccine (#1) 2025 08/27/2010 Tetanus booster 02/07/2031 02/07/2021, 04/06/2021, 01/03/2011, Additional history exists Hepatitis B series for 19+ Completed 12/19, 1993, 1993 COVID-19 vaccine series Completed 10/10/20 24, 08/26/2023, 02/25/2021 Pneumococcal series for age 6-49 Aged Out No longer eligible based on patient's age to complete this topic Procedures Procedure Name Priority Date/Time Associated Diagnosis Comments HPV HIGH RISK Routine 10/21/2021 1:55 PM GAS FITTER HELPER from Last 3 Months or Most Recently Relevant to Health Maintenance Results * HPV HIGH RISK (10/21/2021 1:55 PM GAS FITTER HELPER) TYPE 16 Negative Negative 10/22/2021 4:34 PM GAS FITTER HELPER [facility] TYPE 18 Negative Negative 10/22/2021 4:34 PM GAS FITTER HELPER [facility] OTHER HIGH RISK TYPES Negative Negative 10/22/2021 4:34 PM GAS FITTER HELPER [facility] Other (Cervical/Vagina l) 10/21/2021 1:55 PM GAS FITTER HELPER 10/22/2021 8:18 AM GAS FITTER HELPER Narrative [facility] - 10/22/2021 4:34 PM GAS FITTER HELPER HPV types 16, 18, 31, 33, 35, 39, 45, 51, 52, 56, 58, 59, 66 and 68 DNA were undetectable or below the pre-set threshold. Methodology: Tamiko Delmar 4800 HPV Test us Heaven Brunson PA-C MICROBIOLOGY Final Result [facility] [address] [place] [address], from Last 3 Months or Most Recently Relevant to Health Maintenance Insurance [facility] Care Teams Jewelry Facer Relationship Specialty Start Date End Date Heaven Brunson PA-C [address] [place] [address] PCP - General Emergency Medicine 02/04/22
[2025-06-01 11:32] VITALS: BP 122/80; PULSE 93; RESP 16; TEMP 36.7; O2SAT 100; BMI 37.3
[2025-06-01 11:49] LABS: Appearance Urine Clear (Clear)
--- NOTE | 2025-06-01 12:27 | ED.GENADULT ---
HPI - General Adult General Date Seen: 06/01/25 Chief complaint: Urogenital Problems, Female Stated complaint: might have a kidney infection Time Seen by Provider: 06/01/25 11:31 History of Present Illness HPI narrative: Patient is a 30-year-old, past medical history notable for fibromyalgia, joint pain, tachycardia, depression, anxiety, PTSD, polycystic ovarian syndrome, ADHD, chronic headaches and borderline personality. She presents for some urinary symptoms which have been present for a couple of days including dysuria, frequency and a sensation that she has to push to urinate. She did start glycopyrrolate a couple of months ago for excessive sweating. She says she has not had any kind of sexual activity in ?years and denies any possibility of STD. She does not get yeast infections and does not have any vaginal itching or burning. She has not had fevers. Yesterday however she felt like her heart was racing and she felt lightheaded. She notes brief episode of blacking out yesterday as well. No vomiting or diarrhea, no black or bloody stools, no rashes. She does not smoke and denies any alcohol or substance use. Related Data Home Medications ?Medication ?Instructions ?Recorded ?Confirmed cholecalciferol (vitamin D3) 50 50 mcg PO DAILY 12/11/23 04/24/25 mcg (2,000 unit) capsule dextromethorphan IR 45 1 tab PO BID 02/08/25 04/24/25 mg-bupropion ER 105 mg biphasic tablet (Auvelity) guanfacine 2 mg tablet,extended 2 mg PO QDAY 02/08/25 04/24/25 release 24 hr (Intuniv ER) baclofen 10 mg tablet 10 mg PO BID PRN 04/24/25 04/24/25 candesartan 8 mg tablet 8 mg PO DAILY 04/24/25 04/24/25 clonazepam 0.5 mg tablet 0.5 mg PO QDAY PRN 04/24/25 04/24/25 ondansetron 4 mg disintegrating 4 mg PO Q6H PRN 04/24/25 04/24/25 tablet Previous Rx's ?Medication ?Instructions ?Recorded glycopyrrolate 1 mg tablet 1 mg PO BID secretions #180 tabs 04/24/25 metformin 500 mg tablet,extended 500 mg PO BID #180 tabs 04/24/25 release 24 hr metoprolol succinate 25 mg 25 mg PO QDAY #90 tabs 04/24/25 tablet,extended release 24 hr spironolactone 50 mg tablet 50 mg PO QAM #90 tabs 04/24/25 Allergies Allergy/AdvReac Type Severity Reaction Status Date / Time iodine Allergy Unknown Itching Verified 06/01/25 11:32 adhesive AdvReac dermatitis Verified 06/01/25 11:32 Review of Systems Status of ROS: Reports: 10 or more systems reviewed and unremarkable except as noted in History and below [facility] Medical History Epigastric pain ?R10.13 - Epigastric pain (ICD-10) Abnormal biliary HIDA scan ?R94.8 - Abnormal results of function studies of other organs and systems (ICD-10) Eosinophilia ?D72.10 - Eosinophilia, unspecified (ICD-10) Encounter for sterilization (03/25/22) ?Z30.2 - Encounter for sterilization (ICD-10) Sterilization (03/25/22) ?Z30.2 - Encounter for sterilization (ICD-10) Severe anxiety ?F41.9 - Anxiety disorder, unspecified (ICD-10) Posttraumatic stress disorder ?F43.10 - Post-traumatic stress disorder, unspecified (ICD-10) Polycystic ovary syndrome ?E28.2 - Polycystic ovarian syndrome (ICD-10) Menorrhagia with irregular cycle ?N92.1 - Excessive and frequent menstruation with irregular cycle (ICD-10) Insomnia ?G47.00 - Insomnia, unspecified (ICD-10) Surgical History Right foot pain (12/2023) ?M79.671 - Pain in right foot (ICD-10) Status post surgical removal of both fallopian tubes (03/25/22) ?Z90.79 - Acquired absence of other genital organ(s) (ICD-10) Status post laparoscopic appendectomy (~2021) ?Z90.49 - Acquired absence of other specified parts of digestive tract (ICD-10) Family History Father No problems noted. Mother Breast cancer Other Bladder cancer Diabetes Liver cancer PCOS (polycystic ovarian syndrome) Social History Narrative: Bookshelver Single Nonsmoker, no alcohol use, no illicit drug use What is your current living situation?: I presently have a place to live Problems where you live: no known problems In the past 12 months, utilities in danger of being shut off: no In past 12 months, lack of transportation kept you from medical appts, meetings, work, or getting things needed for daily living: no In the past 12 mos, have been you worried that your food would run out before you had money to buy more?: sometimes true In the past 12 mos, the food you bought just didn't last and you didn't have money to buy more?: sometimes true Smoking Status: Never smoker Do you use any of these nicotine containing products: None Second hand tobacco smoke exposure: No How often do you have a drink containing alcohol: never AUDIT-C Alcohol total score: 0 Non-prescribed substance use: marijuana (any form) Non-prescribed substance use details: THC Gummies every night, PT estimates 300 mg How often does anyone, including family, friends and others, physically hurt you: never How often does anyone, including family, friends and others, insult or talk down to you: rarely How often does anyone, including family, friends and others, threaten you with harm: never How often does anyone, including family, friends and others, scream or curse at you: never Health Related Social Needs: food insecurity (Z59.41) and Other personal risk factors, not elsewhere classified (Z91.89) Exam Narrative: Exam Narrative: Vital signs reviewed In general, alert, nontoxic young woman. She is breathing easily. Head: Normocephalic, atraumatic. Eyes: Sclera clear. Pupils equal and reactive. ENT: Mucous membranes moist. Neck: Supple without adenopathy. Heart: Regular rate and rhythm without murmur. Lungs: Clear. No increased work of breathing, crackles or wheezes. No CVA tenderness. Abdomen: Soft, nontender to palpation. Extremities: Well perfused, pulses intact. No significant edema. Neurologic: Alert, conversant. Speech fluent, face symmetric. Moves all extremities equally. Skin: Warm, dry well perfused. Affect: Normal. Const: Vital Signs, click to edit/add: Vital Signs - 24 hr 06/01/25 11:32 06/01/25 13:27 Temperature 98.0 F 98.6 F Pulse Rate [Pulse Oximeter] 93 87 Respiratory Rate 16 18 Blood Pressure [Ri ght Upper Arm] 122/80 129/75 Pulse Oximetry 100 100 Oxygen Delivery Me thod Room Air Room Air Course Course ED Course: We did obtain a urinalysis here, this is entirely negative and I think effectively rules out urinary tract infection. She does not have flank pain or tenderness, she is afebrile, I do not have significant suspicion for pyelonephritis. She does not have any abdominal pain to suggest biliary colic, cholecystitis, pancreatitis etcetera. She does not have any respiratory symptoms to suggest a pneumonia, PE, pneumothorax etcetera. She does report an episode of lightheadedness and brief syncope yesterday associated with palpitations. We will go ahead and get an EKG and just check some basic labs to make sure she does not seem dehydrated, anemic, or have electrolyte abnormalities that might predispose her to arrhythmia. I do think that Glycoprrolate is likely the explanation for her urinary symptoms, could also be causing some palpitations. EKG here shows a normal sinus rhythm, ventricular rate of 82, no acute ST segment changes, normal T-waves, corrected QT of 411 milliseconds. Normal MT interval. Labs reviewed in their entirety and normal including a point of care troponin of 0, normal thyroid function, negative UA. Reviewed this with her. I would recommend primary care follow-up in the next week or 2 to reassess how she is feeling. If she feels that side effects from this medication outweigh the benefits they can discuss an alternative. Return any time for significant worsening or new symptoms. Vital Signs Vital signs: Initial Vital Signs Temperature 98.0 F 06/01/25 11:32 Temperature Source Temporal Artery Scan 06/01/25 11:32 Pulse Rate 93 06/01/25 11:32 Respiratory Rate 16 06/01/25 11:32 Blood Pressure 122/80 06/01/25 11:32 Blood Pressure Mean 94 06/01/25 11:32 Pulse Oximetry 100 06/01/25 11:32 Oxygen Delivery Method Room Air 06/01/25 11:32 Vital Signs Temperature 98.0 F 06/01/25 11:32 Pulse Rate 93 06/01/25 11:32 Respiratory Rate 16 06/01/25 11:32 Blood Pressure 122/80 06/01/25 11:32 Pulse Oximetry 100 06/01/25 11:32 Oxygen Delivery Method Room Air 06/01/25 11:32 Temperature 98.6 F 06/01/25 13:27 Pulse Rate 87 06/01/25 13:27 Respiratory Rate 18 06/01/25 13:27 Blood Pressure 129/75 06/01/25 13:27 Pulse Oximetry 100 06/01/25 13:27 Oxygen Delivery Method Room Air 06/01/25 13:27 Medical Decision Making Lab Data Labs: Lab Results 06/01/25 06/01/25 06/01/25 Range/Units 11:42 12:25 12:45 WBC 10.37 (4.50-11.00) K/uL RBC 4.23 (4.00-5.20) m/uL Hgb 13.7 (12.0-16.0) gm/dL Hct 41.0 (33.0-51.0) % MCV 97 (80-100) fL MCH 32 (26-34) pg MCHC 33 (32-36) gm/dL RDW Coeff of Erik 11.3 L (11.5-15.5) % Plt Count 366 (140-440) K/uL Neut % (Auto) 59.9 (42.0-72.0) % Lymph % (Auto) 26.1 (20-44) % [place] % (Auto) 8.5 (0.0-11.0) % Eos % (Auto) 5.0 (0.0-7.0) % Baso % (Auto) 0.4 (0.0-3.0) % Neut # (Auto) 6.21 (1.7-7.0) K/uL Lymph # (Auto) 2.71 (0.90-2.90) K/uL [place] # (Auto) 0.90 (0.00-0.90) K/UL Eos # (Auto) 0.52 H (0.00-0.50) K/uL Baso # (Auto) 0.04 (0.00-0.30) K/uL Abs Immat Gran (auto) 0.01 (0.00-0.30) K/uL Imm/Tot Granulo (auto) 0.1 % Sodium 139 (135-149) mmol/L Potassium 4.3 (3.6-5.1) mmol/L Chloride 105 (96-114) mmol/L Carbon Dioxide 25 (20-32) mmol/L Anion Gap 9 (7-15) mEq/L BUN 9 (5-24) mg/dL Creatinine 0.9 (0.5-1.5) mg/dL Estimated Creat Clear 84.01 Estimated GFR 87 ml/min Glucose 114 (60-115) mg/dL Calcium 9.8 (8.4-10.6) mg/dL Magnesium 1.8 (1.5-2.6) mg/dL Total Bilirubin 0.2 (0.1-1.5) mg/dL AST 25 (12-35) U/L ALT 17 (4-35) U/L Alkaline Phosphatase 59 (40-150) U/L Total Protein 7.9 (6.0-8.3) g/dL Albumin 4.6 (3.3-5.0) g/dL TSH 1.290 (0.270-4.200) uIU/mL Urine Color Yellow (Yellow) Urine Appearance Clear (Clear) Urine pH 6.0 (5.0-8.5) Ur Specific [place] 1.020 (1.000-1.030) Urine Protein Negative (Negative) Urine Glucose (UA) Negative (Negative) Urine Ketones Negative (Negative) Urine Blood Negative (Negative) Urine Nitrite Negative (Negative) Urine Bilirubin Negative (Negative) Urine Urobilinogen 0.2 (0.2-1.0) Ur Leukocyte Esterase Negative (Negative) SARS-CoV-2 (PCR) Negative SARS-CoV-2 (Negative) Influenza Type A (PCR) Negative PCR FLU A (Negative) Influenza Type B (PCR) Negative PCR FLU B (Negative) RSV (PCR) Negative PCR RSV (Negative) POC Troponin I 0.00 L (0.01-0.04) ng/ml Discharge Plan Discharge Clinical Impression: Urinary symptom or sign, Syncope, Medication side effect Patient Disposition: Home, Self-Care Condition: Stable Additional Instructions: Your labs today are all very reassuring. I do think that your urinary symptoms are most likely tied to the medication you are taking for sweating. This medication can also cause palpitations as well, so this all may be medication side effect related. On the other hand, palpitations and lightheadedness can be very multifactorial. I would recommend that you see your primary doctor for reassessment in the next week or 2 and see how you are feeling. No sign of urinary tract infection or other infection today. Prescriptions: No Action Auvelity 45-105 mg tablet, IR and ER, biphasic 1 tab PO BID Rx Instructions: administer at least 8 hours apart guanfacine [Intuniv ER] 2 mg tablet extended release 24 hr 2 mg PO QDAY baclofen 10 mg tablet 10 mg PO BID PRN ondansetron 4 mg tablet,disintegrating 4 mg PO Q6H PRN candesartan 8 mg tablet 8 mg PO DAILY clonazepam 0.5 mg tablet 0.5 mg PO QDAY PRN metoprolol succinate 25 mg tablet extended release 24 hr 25 mg PO QDAY Qty: 90 3RF Rx Instructions: once daily for blood pressure and heart rate metformin 500 mg tablet extended release 24 hr 500 mg PO BID Qty: 180 3RF Rx Instructions: one tablet twice daily glycopyrrolate 1 mg tablet 1 mg PO BID Qty: 180 0RF Rx Instructions: twice daily for sweating spironolactone 50 mg tablet 50 mg PO QAM Qty: 90 0RF Rx Instructions: once daily for acne cholecalciferol (vitamin D3) 50 mcg (2,000 unit) capsule 50 mcg PO DAILY Follow Up/Referrals: Heaven Brunson PA-C [Primary Care Provider, Family Practice] Stand Alone Forms: [employer] Info Instructions
[2025-06-01 12:53] LABS: Hematocrit 41.0 % (33.0-51.0); Hemoglobin* 13.7 gm/dL (12.0-16.0); Immature Granulocytes Abs Auto 0.01 K/uL (0.00-0.30); Immature Granulocytes Pct Auto 0.1 %; Lymphocytes Absolute Auto 2.71 K/uL (0.90-2.90); Mean Corpuscular HGB Conc 33 gm/dL (32-36); Mean Corpuscular Hemoglobin 32 pg (26-34); Mean Corpuscular Volume 97 fL (80-100); RDW Coefficient of Variation % 11.3 % (11.5-15.5); Red Blood Count 4.23 m/uL (4.00-5.20); White Blood Count* 10.37 K/uL (4.50-11.00)
[2025-06-01 12:55] LABS: Slide Review Reflex No
[2025-06-01 13:05] LABS: Albumin* 4.6 g/dL (3.3-5.0); Chloride* 105 mmol/L (96-114); Potassium* 4.3 mmol/L (3.6-5.1); Sodium* 139 mmol/L (135-149)
--- OUTSIDE RECORDS SUMMARY | 2025-06-01 13:05 | XMS_ITS | Encounter Summary ---
Author Organization [facility] Address [address] [place] [address] Care Team Providers Care Foundry Supervisor Name Role Phone Andrez Krause PA-C Primary Care Provider [phone] Andrez Krause PA-C Unavailable [phone] Andrez KrauseC Unavailable [phone] Mona Tian MD Unavailable [phone] Heaven BrunsonC Primary Care Provider Brett Torres MD Unavailable [phone] Karen Galvan-C Unavailable [phone] Marie Lawrence [facility] Unavailable [phone] Encounter Details Date Type Department Care Team (Late st Contact Info) Description 10/30/2017 MyC Medical Advice [address], [address] [place] [address] Geraldine Chavarria, RN Social History Tobacco Use Types Packs/Day Years Used Date Smoking Tobacco: Never Smokeless Tobacco: Never Alcohol Use Standard Drinks/Week Comments Yes 0 (1 standard drink = 0.6 oz pur e alcohol) socially Comments No Sex and Gender Information Value Date Recorded Sex Assigned at Female 11/04/2018 8:36 AM INSTITUTE DIRECTOR Legal Sex Female 11:10 AM INSTITUTE DIRECTOR Gender Identity Female 11/04/2018 8:36 AM INSTITUTE DIRECTOR Sexual Orientation Straight 11/04/2018 8: 36 AM INSTITUTE DIRECTOR 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 [address] [place] [address] PCP - General Physician Feather Mixer 05/30/21 Andrez Krause PA-C [address] [place] [address] Assigned PCP 09/13/15 06/20/22 Mona Tian MD [address] [place] [address] Assigned OBGYN Provider 08/03/20 Brett Torres MD [address] [place], [place] [address] Assigned Behavioral Health Provider 07/14/21 01/02/23 Karen Galvan PA-C [address] [address] Assigned Sleep Provider 09/01/21 Marie Lawrence, [facility] [address] [address] Assigned MTM Pharmacist 04/05/22 documented as of this encounter
--- OUTSIDE RECORDS SUMMARY | 2025-06-01 13:05 | XMS_ITS | Encounter Summary ---
Author Organization [facility] Address [address] [place] [address] Care Team Providers Care Lead Ramp Agent Name Role Phone Andrez Krause PA-C Primary Care Provider [phone] Andrez Krause PA-C Unavailable [phone] Andrez KrauseC Unavailable [phone] Mona Tian MD Unavailable [phone] Heaven BrunsonC Primary Care Provider Brett Torres MD Unavailable [phone] Karen Galvan-C Unavailable + [phone] Marie Lawrence [facility] Unavailable [phone] Encounter Details Date Type Department Care Team (Late st Contact Info) Description 11/04/2017 MyC Medical Advice [address], [address] [place] [address] Marnie Mabry MA Social History Tobacco Use Types Packs/Day Years Used Date Smoking Tobacco: Never Smokeless Tobacco: Never Alcohol Use Standard Drinks/Week Comments Yes 0 (1 standard drink = 0.6 oz pur e alcohol) socially Comments No Sex and Gender Information Value Date Recorded Sex Assigned at Female 11/04/2018 8:36 AM LABOR ARBITRATOR HEARING OFFICE Legal Sex Female 11:10 AM LABOR ARBITRATOR HEARING OFFICE Gender Identity Female 11/04/2018 8:36 AM LABOR ARBITRATOR HEARING OFFICE Sexual Orientation Straight 11/04/2018 8: 36 AM LABOR ARBITRATOR HEARING OFFICE 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 Not on file Not on file documented as of this encounter Plan of Treatment Not on file documented as of this encounter Visit Diagnoses Not on filedocumented in this encounter Additional Health Concerns Assessment Noted Time PHQ-9 Depression Total Score: 018 9:18 AM LABOR ARBITRATOR HEARING OFFICE documented as of this encounter Care Teams Lead Ramp Agent Relationship Specialty Start Date End Date Andrez Krause PA-C PCP - General Physician Aircraft Engineer - Medical 10/09/15 05/29/21 Andrez Krause PA-C [address] [place] [address] PCP - Assigned PCP 09/13/15 12/14/18 Heaven Brunson PA-C [facility] [address] [place] [address] PCP - General Physician Aircraft Engineer 05/30/21 Andrez Krause PA-C [address] [place] [address] Assigned PCP 09/13/15 06/20/22 Mona Tian MD [address] [place] [address] Assigned OBGYN Provider 08/03/20 Brett Torres MD [address] [place], [place] [address] Assigned Behavioral Health Provider 07/14/21 01/02/23 Karne Galvan PA-C [address] [address] Assigned Sleep Provider 09/01/21 Marie Lawrence, [facility] [address] [address] Assigned MTM Pharmacist 04/05/22 documented as of this encounter
[2025-06-01 13:07] LABS: Blood Urea Nitrogen* 9 mg/dL (5-24); Creatinine* 0.9 mg/dL (0.5-1.5); Est. Creatinine Clearance* 84.01; Estimated Glomerular Filt Rate 87 ml/min
[2025-06-01 13:08] LABS: Alanine Aminotransferase* 17 U/L (4-35); Alkaline Phosphatase* 59 U/L (40-150); Anion Gap 9 mEq/L (7-15); Aspartate Amino Transferase* 25 U/L (12-35); Bilirubin Total* 0.2 mg/dL (0.1-1.5); Calcium* 9.8 mg/dL (8.4-10.6); Carbon Dioxide* 25 mmol/L (20-32); Glucose* 114 mg/dL (60-115); Total Protein* 7.9 g/dL (6.0-8.3)
[2025-06-01 13:27] VITALS: BP 129/75; PULSE 87; RESP 18; TEMP 37; O2SAT 100
[2025-06-01 13:58] LABS: TSH With Reflex to FT4* 1.290 uIU/mL (0.270-4.200)
[2025-06-01 14:14] LABS: PCR FLU A Negative PCR FLU A (Negative); PCR FLU B Negative PCR FLU B (Negative); PCR RSV Negative PCR RSV (Negative); SARS PCR* Negative SARS-CoV-2 (Negative)
[2025-06-01 14:23] LABS: Troponin, Point-of-Care* 0.00 ng/ml (0.01-0.04)
== END 2025-06-01 14:30 | disposition home or self-care (01) ==
PROVIDERS: Emergency Provider Emergency Medicine; PCP Physician Assistant Medical
DX: R30.0 Dysuria (principal); R55 Syncope and collapse; T44.3X5A Adverse effect of other parasympatholytics [anticholinergics and antimuscarinics] and spasmolytics, initial encounter
CPT/HCPCS: 36415; 80053; 81003; 83735; 84443; 84484; 85025; 87631; 93005; 99284

== ENCOUNTER 2025-10-09 12:52 | Outpatient (CLI) | payer BC, SELFPAY ==
--- NOTE | 2025-10-09 13:00 | CRLHL7_ITS ---
For Patients: As a result of the Century Cures Act, medical imaging exams and procedure reports are released immediately into your electronic medical record. You may view this report before your referring provider. If you have questions, please contact your health care provider. Indication: Deviated nasal septum, possible sinus disease Technique: Noncontrast CT of the paranasal sinuses. Coronal and sagittal reformats. Bone and soft tissue algorithms. Comparison: MRI brain 09/08/2023 Findings: The frontal sinuses and recesses, anterior and posterior ethmoid air cells, sphenoid sinuses and sphenoethmoidal recesses, maxillary sinuses and ostiomeatal units are grossly clear. There is approximately 4.5 mm rightward nasal septal deviation. No nasal cavity masses or significant sepncer bullosa. No aggressive osseous lesions. Orbits and intracranial structures are unremarkable for technique. Temporomandibular joints appear anatomic. No concerning mastoid or middle ear opacification. IMPRESSION: 1. Approximately 4.5 mm rightward nasal septal deviation. 2. Clear sinonasal cavities. Please note that all CT scans at this facility use dose modulation, iterative reconstruction, and/or weight-based dosing when appropriate to reduce radiation dose to as low as reasonably achievable. Dictated by Angelica Moreland MD @ 10/09/2025 1:34:36 PM (Electronically Signed)
== END 2025-10-09 12:53 | disposition home or self-care (01) ==
LOC: CT 12:53
PROVIDERS: PCP Physician Assistant Medical; Visit Provider Physician Assistant
DX: J34.2 Deviated nasal septum (principal); R51.9 Headache, unspecified; R09.81 Nasal congestion
CPT/HCPCS: 70486